=== PATIENT | female | born 1960 | race Caucasian/White ===

== ENCOUNTER → 2016-06-05 | Outpatient (CLI) | payer OTHER ==
[~2016-06-05] MED LIST: ATOR-22 PO; BUSP-8 PO; CEPH500C PO; CLOT1CRE4 TOP; DOXY100T17 PO; GLC/500 PO; KLN5X PO; METH-307 PO; MIRT15TA2 PO; OXYB5TAB PO; PROP120C; RIZA10TA18 PO; TOPI100T20 PO; VENL150C PO
[2016-06-05 18:23] LABS: URINE APPEARANCE CLEAR (CLEAR); URINE BILIRUBIN NEG (NEG); URINE COLOR YELLOW; URINE EPITHELIAL CELL AUTO >30 /lpf (0-5); URINE NITRITE NEG (NEG); URINE SPECIFIC GRAVITY 1.014 (1.000-1.030); UROBILINOGEN NEG (NEG)
[2016-06-05 18:24] LABS: MANUAL MICROSCOPIC REQUIRED? NO; REVIEW REQ? NO
== END | disposition home or self-care (01) ==
LOC: C.LABSPEC 17:45
PROVIDERS: ATTEND Nurse Practitioner Adult Health
DX: R30.0 Dysuria (principal); A49.8 Other bacterial infections of unspecified site

== ENCOUNTER → 2016-06-10 | Outpatient (CLI) | payer OTHER ==
--- NOTE | 2016-06-10 13:06 | DIAGNOSTIC IMAGING REPORT ---
KUB CLINICAL HISTORY: R31.9 [id number] Right flank [id number] COMPARISON STUDY: No previous studies for comparison. FINDINGS: The soft tissues, psoas shadows, renal outlines and intestinal gas pattern appear normal. There is no evidence for bowel obstruction. No abnormal abdominal calcifications are seen. IMPRESSION: Normal study. Electronically signed by: Polo Grey M.D. 06/10/2016 1:04 PM Dictated Date/Time: 06/10/2016 1:04 PM
== END | disposition home or self-care (01) ==
LOC: C.RAD 12:42
PROVIDERS: ATTEND Nurse Practitioner Adult Health
DX: R31.9 Hematuria, unspecified (principal); R10.9 Unspecified abdominal pain

== ENCOUNTER → 2016-08-27 | Outpatient (CLI) | payer OTHER ==
[~2016-08-27] MED LIST changes: +CLOT-40 TOP; -CLOT1CRE4 TOP; +ERGO500011 PO; +GABA-113 PO; +LOSA1TAB PO; +PROM25TA9 PO; +PROP1TAB PO; +SUMA6KIT3 SQ; +TEMA30CA4 PO; +TOPI50TA16 PO; +VENL75CA PO
--- NOTE | 2016-08-28 15:06 | MAMMOGRAPHY REPORT ---
BILATERAL DIGITAL SCREENING MAMMOGRAM TOMOSYNTHESIS WITH CAD: 08/27/2016 CLINICAL HISTORY: Routine screening. Patient has no complaints. TECHNIQUE: Breast tomosynthesis in addition to standard 2D mammography was performed. Current study was also evaluated with a Computer Aided Detection (CAD) system. COMPARISON: Comparison is made to exams dated: 08/27/2015 mammogram, 04/15/2011 mammogram, and 2009 mammogram - [facility]. BREAST COMPOSITION: There are scattered areas of fibroglandular density in both breasts. FINDINGS: No suspicious masses, calcifications, or areas of architectural distortion are noted in e ither breast. There has been no significant interval change compared to prior exams. A linear scar marker denotes a scar on the left upper inner breast. IMPRESSION: ACR BI-RADS CATEGORY 2: BENIGN There is no mammographic evidence of malignancy. A 1 year screening mammogram is recommended. The p atient will receive written notification of the results. Approximately 10% of breast cancers are not detected with mammography. A negative mammographic repor t should not delay biopsy if a clinically suggestive mass is present. Moira Cha M.D. /:08/27/2016 15:29:27 [employer] Supervisor: Candace ADAME(R)(M), [facility] letter sent: Normal 1/2 BI-RADS Code: ACR BI-RADS Category 2: Benign
== END | disposition home or self-care (01) ==
LOC: C.MAMM 14:19
PROVIDERS: ATTEND Nurse Practitioner Family
DX: Z12.31 Encounter for screening mammogram for malignant neoplasm of breast (principal)

== ENCOUNTER → 2016-09-28 | Outpatient (CLI) | payer OTHER ==
--- NOTE | 2016-09-28 10:40 | DIAGNOSTIC IMAGING REPORT ---
MRI CERVICAL WITHOUT CONTRAST CLINICAL HISTORY: M54.12 Cervical radiculopathy Weakness of both arms TECHNIQUE: Sagittal and axial T1, T2 and STIR images were obtained. COMPARISON STUDY: Conventional radiographic study dated 03/06/2016 There are no suspicious areas of marrow replacement. No intrinsic cervical cord lesions are visualized. C2-3: There is no evidence of disc bulge or focal herniation. There is no spinal or foraminal stenosis. C3-4: There is no evidence of disc bulge or focal herniation. There is no spinal or foraminal stenosis. C4-5: There is a minor circumferential disc bulge. There is no spinal stenosis. There is minor bilateral foraminal narrowing C5-6 :There is a circumferential disc bulge. There is slight effacement of the anterior subarachnoid space. There is mild bilateral foraminal narrowing C6-7: There is a minimal circumferential disc bulge. There is no spinal stenosis. There is no significant foraminal narrowing C7-T1: There is no evidence of disc bulge or focal herniation. There is no evidence of spinal or foraminal stenosis. IMPRESSION:Mild multilevel spondylitic changes. Mild spinal stenosis at the C5-6 level. Mild bilateral foraminal narrowing the C4-5 and C5-6 levels. Electronically signed by: Miguel Angel James M.D. 09/28/2016 10:39 AM Dictated Date/Time: 09/28/2016 10:05 AM
== END | disposition home or self-care (01) ==
LOC: C.MRIBC 08:58
PROVIDERS: ATTEND Psychiatry & Neurology Neurology
DX: M50.90 Cervical disc disorder, unspecified, unspecified cervical region (principal); M54.12 Radiculopathy, cervical region; R29.898 Other symptoms and signs involving the musculoskeletal system

== ENCOUNTER → 2016-11-04 | Outpatient (CLI) | payer OTHER ==
[~2016-11-04] MED LIST changes: -CLOT-40 TOP; +CLOT1CRE4 TOP; -ERGO500011 PO; -GABA-113 PO; -LOSA1TAB PO; -PROM25TA9 PO; -PROP1TAB PO; -SUMA6KIT3 SQ; -TEMA30CA4 PO; -TOPI50TA16 PO; -VENL75CA PO
[2016-11-04 12:12] LABS: BASO % 0.4 %; BASO ABS # 0.03 K/uL (0-0.2); COMPLETE YES; HEMATOCRIT 40.5 % (37-47); IG% 0.1 %; LYMPH % 18.5 %; LYMPH ABS # 1.31 K/uL (1.2-3.4); MEAN CELL VOLUME 82.2 fL (80-100); MEAN CORPUSCULAR HEMOGLOBIN 25.4 pg (25-34); MEAN CORPUSCULAR HGB CONC 30.9 g/dl (32-36); MEAN PLATELET VOLUME 11.3 fL (7.4-10.4); MONO % 5.6 %; NEUT % 73.4 %; PLATELET COUNT 269 K/uL (130-400); RED BLOOD COUNT 4.93 M/uL (4.2-5.4); WHITE BLOOD COUNT 7.09 K/uL (4.8-10.8)
[2016-11-04 12:30] LABS: ALT/SGPT 24 U/L (12-78); AST/SGOT 13 U/L (15-37); BLOOD UREA NITROGEN 14 mg/dl (7-18); BUN/CREATININE RATIO 17.3 (10-20); CALCIUM 8.7 mg/dl (8.5-10.1); CARBON DIOXIDE 27 mmol/L (21-32); CHLORIDE 113 mmol/L (98-107); CHOLESTEROL 141 mg/dl (0-200); CREATININE 0.83 mg/dl (0.60-1.20); GLUCOSE 108 mg/dl (70-99); POTASSIUM 4.6 mmol/L (3.5-5.1); SODIUM 145 mmol/L (136-145)
[2016-11-04 12:33] LABS: ALB/GLOB RATIO 1.4 (0.9-2); ALKALINE PHOSPHATASE 115 U/L (45-117); CHOLESTEROL/HDL RATIO 3.4; HDL CHOLESTEROL 41 mg/dl; LDL CHOLESTEROL CALCULATED 74 mg/dl; TRIGLYCERIDES 130 mg/dl (0-150); VERY LOW DENSITY LIPOPROT CALC 26 mg/dl
[2016-11-04 13:00] LABS: ESTIMATED AVERAGE GLUCOSE 111 mg/dl; HA1C FLAG Normal (Normal)
== END | disposition home or self-care (01) ==
LOC: C.LAB 10:22
PROVIDERS: ATTEND Nurse Practitioner Family
DX: E78.5 Hyperlipidemia, unspecified (principal); E88.81 Metabolic syndrome and other insulin resistance; I10 Essential (primary) hypertension

== ENCOUNTER 2016-11-08 09:54 | Emergency (ER) | payer OTHER ==
[~2016-11-08] VITALS: Ht 167.6 cm; Wt 98.2 kg
[~2016-11-08 09:54] MED LIST changes: -CEPH500C PO; -DOXY100T17 PO
[2016-11-08 10:05] VITALS: TEMP 36.8; Ht 167.6 cm; Wt 98.2 kg
[2016-11-08] MEDS ORDERED: SODIUM CHLORIDE 0.9% 1000ML 1,000 ML IV STA (10:28)
[2016-11-08] MEDS ORDERED: ONDANSETRON INJ 2 MG/ML 2 ML VIAL IV STA (10:28)
[2016-11-08] MEDS ORDERED: DOXYCYCLINE HYCLATE 100 MG CAP PO ONE (10:30)
--- NOTE | 2016-11-08 10:39 | EMERGENCY ROOM VISIT NOTE ---
History First contact with patient: 10:15 Chief Complaint: SKIN PROBLEM Stated Complaint: REDNESS,SWELLING,NAUSEA,CHILLS,FLU LIKE SX History of Present Illness The patient is a 56 year old female who presents to the Emergency Room with complaints of rash to the abdomen. The patient noticed a rash to the left lower abdomen. She is not certain how long it has been there or what caused it. She states that it seems to be increasing in size. She states that she has developed fevers, chills, arthralgias and myalgias, nausea. She states her temperature was as high as 100.3F. She states that she took [id number] medication this morning. She rates her discomfort a 5/10. She denies any drainage. She states that she was camping recently and could have been bitten by a tick but did not recall seeing on She denies she reports a mild headache but states it feels consistent with her recurrent migraines. She reports chronic neck pain and states it is not any different than her baseline. She denies any pain in her chest or trouble breathing. She denies any abdominal pain or vomiting. Review of Systems A 10 system review of systems was completed with positives and pertinent negatives listed in the HPI. Past Medical/Surgical History Medical Problems: (1) Chronic low back pain (2) Depression (3) Diabetes (4) Hyperlipidemia (5) Hypertension (6) Migraine (7) Panic attack Social History Smoking Status: Never Smoker Alcohol Use: none Drug Use: none Marital Status: single Occupation Status: unemployed Current/Historical Medications Scheduled Atorvastatin (Lipitor), 20 MG PO QPM Buspirone Hcl (Buspirone Hcl), 10 MG PO HS Cephalexin Monohydrate (Keflex), 500 MG PO QID Doxycycline (Monohydrate) (Doxycycline Monohydrate), 100 MG PO BID Metformin Hcl (Glucophage), 1,000 MG PO QPM Mirtazapine Soltab (Remeron Soltab), 15 MG PO HS Oxybutynin Chloride (Oxybutynin Chloride Er), 10 MG PO QPM Propranolol Hcl (Propranolol Hcl Er), 120 MG HS Rizatriptan Benzoate (Maxalt), 10 MG PO PRN Topiramate (Topamax), 100 MG PO BID Venlafaxine Hcl (Effexor Xr), 150 MG PO QNOON Scheduled PRN Clonazepam (Clonazepam), 0.5 MG PO HS PRN for anxiety Physical Exam Vital Signs Date Time Temp Pulse Resp B/P (MAP) Pulse Ox O2 Delivery O2 Flow Rate FiO2 11/08/16 12:01 67 18 108/71 95 11/08/16 11:08 66 16 109/65 96 Room Air 11/08/16 10:05 36.8 78 18 121/87 95 Room Air Physical Exam VITALS: Vitals are noted on the nurse's note and reviewed by myself. Vital signs stable. GENERAL: This is a 56 year old female, in no acute distress, nondiaphoretic, well-developed well-nourished. SKIN: There is an annular area of erythema to the left lower abdomen. There is a central area of necrosis. There is no fluctuance or drainage. There is no tenting of the skin. Capillary reflex less than 2 seconds. HEAD: Normocephalic atraumatic. EARS: The external ears are normal in appearance. EYES: Pupils equal round and reactive to light and accommodation. Conjunctivae without injection, sclerae without icterus. Extraocular movements intact. NOSE: Patent, turbinates without inflammation or discharge. MOUTH: Mucous membranes moist. Tongue does not deviate. NECK: Supple without nuchal rigidity. HEART: Regular rate and rhythm without murmurs gallops or rubs. LUNGS: Clear to auscultation bilaterally without wheezes, rales or rhonchi. No retractions or accessory muscle use. ABDOMEN: Positive bowel sounds x 4.Soft, nontender, without masses or organomegaly. MUSCULOSKELETAL: No muscle atrophy, erythema, or edema noted. Full range of motion in all extremities. Strength 5/5 throughout. NEURO: Patient was alert and oriented to person place and time. No focal neurological deficits. Medical Decision & Procedures Laboratory Results 11/08/16 10:35 Red Blood Count 4.78, Mean Corpuscular Volume 81.2, Mean Corpuscular Hemoglobin 25.7, Mean Corpuscular Hemoglobin Concent 31.7, Mean Platelet Volume 11.2, Neutrophils (%) (Auto) 76.9, Lymphocytes (%) (Auto) 13.2, Monocytes (%) (Auto) 9.2, Eosinophils (%) (Auto) 0.5, Basophils (%) (Auto) 0.2, Neutrophils # (Auto) 3.10, Lymphocytes # (Auto) 0.53, Monocytes # (Auto) 0.37, Eosinophils # (Auto) 0.02, Basophils # (Auto) 0.01 11/08/16 10:35 Test 11/08/16 10:35 White Blood Count 4.03 K/uL (4.8-10.8) Red Blood Count 4.78 M/uL (4.2-5.4) Hemoglobin 12.3 g/dL (12.0-16.0) Hematocrit 38.8 % (37-47) Mean Corpuscular Volume 81.2 fL (80-100) Mean Corpuscular Hemoglobin 25.7 pg (25-34) Mean Corpuscular Hemoglobin Concent 31.7 g/dl (32-36) Platelet Count 183 K/uL (130-400) Mean Platelet Volume 11.2 fL (7.4-10.4) Neutrophils (%) (Auto) 76.9 % Lymphocytes (%) (Auto) 13.2 % Monocytes (%) (Auto) 9.2 % Eosinophils (%) (Auto) 0.5 % Basophils (%) (Auto) 0.2 % Neutrophils # (Auto) 3.10 K/uL (1.4-6.5) Lymphocytes # (Auto) 0.53 K/uL (1.2-3.4) Monocytes # (Auto) 0.37 K/uL (0.11-0.59) Eosinophils # (Auto) 0.02 K/uL (0-0.5) Basophils # (Auto) 0.01 K/uL (0-0.2) RDW Standard Deviation 43.8 fL (36.4-46.3) RDW Coefficient of Variation 14.8 % (11.5-14.5) Immature Granulocyte % (Auto) 0.0 % Immature Granulocyte # (Auto) 0.00 K/uL (0.00-0.02) Anion Gap 7.0 mmol/L (3-11) Est Creatinine Clear Calc Drug Dose 87.3 ml/min Estimated GFR () 88.1 Estimated GFR (Non- 76.1 BUN/Creatinine Ratio 13.9 (10-20) Calcium Level 8.4 mg/dl (8.5-10.1) Total Bilirubin 0.3 mg/dl (0.2-1) Aspartate Amino Transf (AST/SGOT) 17 U/L (15-37) Alanine Aminotransferase (ALT/SGPT) 25 U/L (12-78) Alkaline Phosphatase 117 U/L (45-117) Total Protein 6.9 gm/dl (6.4-8.2) Albumin 3.8 gm/dl (3.4-5.0) Globulin 3.1 gm/dl (2.5-4.0) Albumin/Globulin Ratio 1.2 (0.9-2) Lyme Disease IgG Antibody NEG (NEG) Lyme Disease IgM Antibody NEG (NEG) Medications Administered Medications (Trade) Dose Ordered Sig/Mohit Route Start Time Stop Time Status Last Admin Dose Admin Sodium Chloride 1,000 ml @ 999 mls/hr Q1H1M STAT IV 11/08/16 10:28 11/08/16 11:28 DC 11/08/16 10:35 999 MLS/HR Ondansetron HCl (Zofran Inj) 4 mg NOW STAT IV 11/08/16 10:28 11/08/16 10:29 DC 11/08/16 10:35 4 MG Doxycycline Hyclate (Vibramycin Cap) 100 mg ONE ONCE PO 11/08/16 10:30 11/08/16 10:31 DC 11/08/16 10:35 100 MG Ceftriaxone Sodium (Rocephin Inj) 1 gm NOW STAT IV 11/08/16 10:57 11/08/16 10:58 DC 11/08/16 11:07 1 GM ED Course The patient was seen and examined. Previous visits were reviewed. The patient does not have a fever or leukocytosis. She does not have any significant electrolyte abnormality. Lyme titer is negative. The patient was hydrated with normal saline She was given 4 mg IV Zofran She was given 100 mg oral doxycycline She was given 1 g IV Rocephin The patient appears to have a cellulitis to the left abdominal wall. Erythema migrans is considered in the differential. Lyme titer is negative. This may represent a MRSA skin infection. The patient will be treated with doxycycline which would cover for potential Lyme disease and MRSA. She will also be placed on Keflex. She should return in 24-48 hours if symptoms are worsening or not improving. Otherwise, she should recheck with her family doctor by the end of the week. Medical Decision The differential diagnosis includes cellulitis, Lyme disease, among others Medication Reconcilliation Current Medication List: was personally reviewed by me Blood Pressure Screening Patient's blood pressure: Normal blood pressure Blood pressure disposition: Did not require urgent referral Impression Primary Impression: Cellulitis, abdominal wall Departure Information Dispostion Home / Self-Care Condition GOOD Prescriptions Cephalexin Monohydrate (Keflex) 500 Mg Cap 500 MG PO QID for 10 Days, #40 CAP Prov: Lacey Stewart PA-C 11/08/16 Doxycycline (Monohydrate) (DOXYCYCLINE MONOHYDRATE) 100 Mg Tab 100 MG PO BID for 10 Days, #20 CAP Prov: Lacey Stewart PA-C 11/08/16 Referrals Brent Dye III, CRNP (PCP) Patient Instructions Cellulitis - [facility], [facility] Additional Instructions Take the antibiotics as prescribed, until finished If there is no significant improvement or worsening in the next 24-48 hours, return to the emergency department Return if there is any worsening swelling, softening could indicate an abscess forming that would need to be opened and drained Otherwise, recheck with your family doctor before the end of the week
[2016-11-08 10:49] LABS: BASO % 0.2 %; BASO ABS # 0.01 K/uL (0-0.2); COMPLETE YES; EOS % 0.5 %; HEMATOCRIT 38.8 % (37-47); LYMPH % 13.2 %; LYMPH ABS # 0.53 K/uL (1.2-3.4); MEAN CELL VOLUME 81.2 fL (80-100); MEAN CORPUSCULAR HEMOGLOBIN 25.7 pg (25-34); MEAN CORPUSCULAR HGB CONC 31.7 g/dl (32-36); MEAN PLATELET VOLUME 11.2 fL (7.4-10.4); MONO % 9.2 %; NEUT % 76.9 %; PLATELET COUNT 183 K/uL (130-400); RED BLOOD COUNT 4.78 M/uL (4.2-5.4); WHITE BLOOD COUNT 4.03 K/uL (4.8-10.8)
[2016-11-08] MEDS ORDERED: CEFTRIAXONE SOD INJ 1 GM ADDVIAL IV STA (10:57)
[2016-11-08 11:06] LABS: BUN/CREATININE RATIO 13.9 (10-20); CALCIUM 8.4 mg/dl (8.5-10.1); CREATININE 0.86 mg/dl (0.60-1.20); POTASSIUM 4.1 mmol/L (3.5-5.1)
[2016-11-08 11:08] LABS: ALB/GLOB RATIO 1.2 (0.9-2)
[2016-11-08 11:38] LABS: LYME DISEASE AB IGG NEG (NEG)
[2016-11-08 11:39] LABS: LYME DISEASE AB IGM NEG (NEG)
[2016-11-08] MEDS ORDERED: DOXY100T17 PO (11:48)
[2016-11-08] MEDS ORDERED: CEPH500C PO (11:48)
[2016-11-08 12:01] VITALS: BP 108/71; PULSE 67; O2SAT 95
== END 2016-11-08 12:03 | disposition home or self-care (01) ==
LOC: C.EDB 09:56 → C.EDC 12:03
DX: L03.311 Cellulitis of abdominal wall (principal); G89.29 Other chronic pain; M54.5 Low back pain; F32.9 Major depressive disorder, single episode, unspecified; E11.9 Type 2 diabetes mellitus without complications; E78.5 Hyperlipidemia, unspecified; I10 Essential (primary) hypertension; Z79.84 Long term (current) use of oral hypoglycemic drugs

== ENCOUNTER 2016-12-18 12:25 | Emergency (ER) | payer OTHER ==
[~2016-12-18] VITALS: Ht 167.6 cm; Wt 101.5 kg
[~2016-12-18 12:25] MED LIST changes: -CLOT1CRE4 TOP; +DOXY100T17 PO; -METH-307 PO
[2016-12-18 12:29] VITALS: TEMP 36.6; Ht 167.6 cm; Wt 101.5 kg
[2016-12-18] MEDS ORDERED: DiphenhydrAMINE HCL 50 MG/ML VIAL IV STA (13:25)
[2016-12-18] MEDS ORDERED: METOCLOPRAMIDE HCL INJ 5 MG/ML 2 ML VIAL IV STA (13:25)
[2016-12-18] MEDS ORDERED: SODIUM CHLORIDE 0.9% 500ML 500 ML IV STA (13:25)
[2016-12-18] MEDS ORDERED: MAGNESIUM SULFATE 1GM / D5W 1 GM BAG IV STA (13:25)
[2016-12-18 13:47] LABS: BASO % 0.6 %; BASO ABS # 0.03 K/uL (0-0.2); COMPLETE YES; EOS % 3.2 %; HEMATOCRIT 37.1 % (37-47); IG% 0.2 %; LYMPH % 24.7 %; LYMPH ABS # 1.33 K/uL (1.2-3.4); MEAN CELL VOLUME 80.8 fL (80-100); MEAN CORPUSCULAR HEMOGLOBIN 25.7 pg (25-34); MEAN CORPUSCULAR HGB CONC 31.8 g/dl (32-36); MEAN PLATELET VOLUME 10.9 fL (7.4-10.4); MONO % 8.7 %; NEUT % 62.6 %; PLATELET COUNT 173 K/uL (130-400); RED BLOOD COUNT 4.59 M/uL (4.2-5.4); WHITE BLOOD COUNT 5.39 K/uL (4.8-10.8)
[2016-12-18 14:08] LABS: BUN/CREATININE RATIO 14.9 (10-20); CALCIUM 8.9 mg/dl (8.5-10.1); CREATININE 0.83 mg/dl (0.60-1.20); POTASSIUM 3.9 mmol/L (3.5-5.1)
--- NOTE | 2016-12-18 15:30 | EMERGENCY ROOM VISIT NOTE ---
History Report prepared by Rolando: Guillermo Garcia Under the Supervision of: Dr. Danielito Krishnan M.D. First contact with patient: 12:49 Chief Complaint: HEADACHE Stated Complaint: MIGRAINE, CHEST DISCOMFORT RADIATING R SIDE History of Present Illness The patient is a 56 year old white female who presents to the ED with a cc of a constant "achy" headache beginning yesterday. She has a history of migraines and states that her current pain feels like a typical migraine. She was watching TV when her pain began. Notes that she has frequent headaches. Positive nausea, vomiting, and photophobia. Negative numbness, tinging, weakness , or shortness of breath. Vomited twice last night. No recent antibiotic use. No recent travel. Has a wisdom tooth that is scheduled to be removed. No recent medication changes. Not taking blood thinners. No recent trauma. Source of History: patient Onset: Yesterday Position: head Quality: other ("achy") Timing: constant Associated Symptoms: + nausea, + vomiting, No SOB, No weakness, No numbness Note: Positive: photophobia. Negative: tingling. Review of Systems See HPI for pertinent positives and negatives. A total of ten systems were reviewed and were otherwise negative. Past Medical & Surgical Medical Problems: (1) Chronic low back pain (2) Depression (3) Diabetes (4) Hyperlipidemia (5) Hypertension (6) Migraine (7) Panic attack Family History No pertinent family history stated. Social History Smoking Status: Former Smoker Alcohol Use: none Drug Use: none Marital Status: single Occupation Status: unemployed Current/Historical Medications Scheduled Atorvastatin (Lipitor), 20 MG PO QPM Buspirone Hcl (Buspirone Hcl), 10 MG PO HS Metformin Hcl (Glucophage), 1,000 MG PO QPM Mirtazapine Soltab (Remeron Soltab), 15 MG PO HS Oxybutynin Chloride (Oxybutynin Chloride Er), 10 MG PO QPM Propranolol Hcl (Propranolol Hcl Er), 120 MG HS Rizatriptan Benzoate (Maxalt), 10 MG PO PRN Topiramate (Topamax), 100 MG PO BID Venlafaxine Hcl (Effexor Xr), 150 MG PO QNOON Scheduled PRN Clonazepam (Clonazepam), 0.5 MG PO HS PRN for anxiety Allergies Coded Allergies: Latex1 -Allergic Contact Dermititis (Verified Allergy, Intermediate, rash , 11/08/16) Sulfamethoxazole w/Trimethoprim (Verified Allergy, Intermediate, itching, chest tightness, 11/08/16) Adhesives (Verified Allergy, Unknown, ITCHY SKIN, 11/08/16) Physical Exam Vital Signs Date Time Temp Pulse Resp B/P (MAP) Pulse Ox O2 Delivery O2 Flow Rate FiO2 12/18/16 16:13 84 25 91/65 95 12/18/16 15:44 83 19 121/84 96 Room Air 12/18/16 15:00 83 20 103/79 92 Room Air 12/18/16 14:35 90 20 109/73 94 Room Air 12/18/16 13:48 88 18 115/83 92 Room Air 12/18/16 13:30 87 18 176/120 92 Room Air 12/18/16 12:55 92 12/18/16 12:40 94 24 126/88 95 Room Air 12/18/16 12:29 36.6 99 20 136/87 99 Room Air Physical Exam GENERAL: Awake, alert, well-appearing, NAD HENT: Normocephalic, atraumatic. Edentulous. Impacted right lower mandibular wisdom tooth without swelling or pain. EYES: Normal conjunctiva. Sclera non-icteric. NECK: Supple. No nuchal rigidity. FROM. RESPIRATORY: CTAB, no rhonchi, wheezing, crackles CARDIAC: RRR, no MRG ABDOMEN: Soft, NTND, BS+ MSK: No chest wall TTP, no LE edema NEURO: GCS 15, CN 2-12 intact, moves all 4s on command. No pronator drift. Good finger to nose. No dysmetria. No sensory deficit. 5/5 b/l UE/LE strength. SKIN: No rash or jaundice noted. Medical Decision & Procedures Laboratory Results 12/18/16 13:30 Red Blood Count 4.59, Mean Corpuscular Volume 80.8, Mean Corpuscular Hemoglobin 25.7, Mean Corpuscular Hemoglobin Concent 31.8, Mean Platelet Volume 10.9, Neutrophils (%) (Auto) 62.6, Lymphocytes (%) (Auto) 24.7, Monocytes (%) (Auto) 8.7, Eosinophils (%) (Auto) 3.2, Basophils (%) (Auto) 0.6, Neutrophils # (Auto) 3.38, Lymphocytes # (Auto) 1.33, Monocytes # (Auto) 0.47, Eosinophils # (Auto) 0.17, Basophils # (Auto) 0.03 12/18/16 13:30 Test 12/18/16 13:30 White Blood Count 5.39 K/uL (4.8-10.8) Red Blood Count 4.59 M/uL (4.2-5.4) Hemoglobin 11.8 g/dL (12.0-16.0) Hematocrit 37.1 % (37-47) Mean Corpuscular Volume 80.8 fL (80-100) Mean Corpuscular Hemoglobin 25.7 pg (25-34) Mean Corpuscular Hemoglobin Concent 31.8 g/dl (32-36) Platelet Count 173 K/uL (130-400) Mean Platelet Volume 10.9 fL (7.4-10.4) Neutrophils (%) (Auto) 62.6 % Lymphocytes (%) (Auto) 24.7 % Monocytes (%) (Auto) 8.7 % Eosinophils (%) (Auto) 3.2 % Basophils (%) (Auto) 0.6 % Neutrophils # (Auto) 3.38 K/uL (1.4-6.5) Lymphocytes # (Auto) 1.33 K/uL (1.2-3.4) Monocytes # (Auto) 0.47 K/uL (0.11-0.59) Eosinophils # (Auto) 0.17 K/uL (0-0.5) Basophils # (Auto) 0.03 K/uL (0-0.2) RDW Standard Deviation 45.2 fL (36.4-46.3) RDW Coefficient of Variation 15.5 % (11.5-14.5) Immature Granulocyte % (Auto) 0.2 % Immature Granulocyte # (Auto) 0.01 K/uL (0.00-0.02) Anion Gap 5.0 mmol/L (3-11) Est Creatinine Clear Calc Drug Dose 92.1 ml/min Estimated GFR () 92.0 Estimated GFR (Non- 79.4 BUN/Creatinine Ratio 14.9 (10-20) Calcium Level 8.9 mg/dl (8.5-10.1) Laboratory results reviewed by me Medications Administered Medications (Trade) Dose Ordered Sig/Mohit Route Start Time Stop Time Status Last Admin Dose Admin Metoclopramide HCl (Reglan Inj) 10 mg NOW STAT IV 12/18/16 13:25 12/18/16 13:26 DC 12/18/16 13:43 10 MG Diphenhydramine HCl (Benadryl Inj) 12.5 mg NOW STAT IV 12/18/16 13:25 12/18/16 13:26 DC 12/18/16 13:43 12.5 MG Magnesium Sulfate (Magnesium Sulfate) 1 gm NOW STAT IV 12/18/16 13:25 12/18/16 13:26 DC 12/18/16 13:43 1 GM Sodium Chloride 500 ml @ 500 mls/hr Q1H STAT IV 12/18/16 13:25 12/18/16 14:24 DC 12/18/16 13:42 500 MLS/HR ECG Indication: vomiting Rate (beats per minute): 86 Rhythm: normal sinus Findings: other (Short CT interval. Normal QRS. Questionable Q wave in lead 3. No other STS changes. No TWI. ) ED Course 1305: The patient was evaluated in room B3B. A complete history and physical exam was performed. 1325: Ordered Sodium Chloride 500 ml @ 500 mls/hr IV, Magnesium Sulfate 1 gm IV , Benadryl Inj 12.5 mg IV, Reglan Inj 10 mg IV. 1525: I reevaluated the patient. Discussed results and discharge instructions: she verbalized understanding and agreement. The patient is ready for discharge. Medical Decision The patient is a 56 year old white female who presents to the ED with a cc of constant "achy" headache beginning yesterday. Differential diagnosis: Etiologies such as migraine headache, meningitis, sinusitis, CO exposure, ICH, SAH, infection, tumor, headache, sinus thrombosis, arterial dissection, as well as others were entertained. Patient did have blood work was completed that was fairly unremarkable. Patient was given a headache cocktail. Patient's symptoms completely resolved patient was able tolerate by mouth. Patient had no neurologic deficits and had full range of motion of the neck without any signs of meningismus. Patient was feeling improved. Patient was told to maintain hydration and avoid caffeine or alcohol related beverages. Patient was told to follow-up for her dental pain. This also may be a possible source of her pain however there are no signs of acute infection patient does not require any antibiotics at this time. Patient was given strict follow-up, discharge, and return precautions. Patient agreeable with plan of care and patient was safely discharged home. Medication Reconcilliation Current Medication List: was personally reviewed by me Blood Pressure Screening Patient's blood pressure: Elevated blood pressure Blood pressure disposition: Referred to PCP Impression Primary Impression: Migraine Scribe Attestation The scribe's documentation has been prepared under my direction and personally reviewed by me in its entirety. I confirm that the note above accurately reflects all work, treatment, procedures, and medical decision making performed by me. Departure Information Dispostion Home / Self-Care Referrals Brent Dye III, CRNP (PCP) Patient Instructions ED Headache Migraine, My [facility] Additional Instructions Please return to the emergency department if you have worsening or recurrent symptoms not amenable to at-home treatment. Please call for a follow-up appointment with her primary care physician. Please take your medications as prescribed. If you have other concerns and/or complaints please feel free to also call your primary care physician's office or return the ED for further evaluation, management, and treatment.
[2016-12-18 16:13] VITALS: BP 91/65; PULSE 84; O2SAT 95
== END 2016-12-18 16:10 | disposition home or self-care (01) ==
LOC: C.EDB 12:26
DX: G43.909 Migraine, unspecified, not intractable, without status migrainosus (principal); M54.5 Low back pain; G89.29 Other chronic pain; F32.9 Major depressive disorder, single episode, unspecified; E11.9 Type 2 diabetes mellitus without complications; E78.5 Hyperlipidemia, unspecified; I10 Essential (primary) hypertension; Z87.891 Personal history of nicotine dependence; Z79.899 Other long term (current) drug therapy

== ENCOUNTER → 2017-01-13 | Outpatient (CLI) | payer OTHER ==
[~2017-01-13] MED LIST changes: -DOXY100T17 PO
[2017-01-13 15:41] LABS: BASO % 0.3 %; BASO ABS # 0.02 K/uL (0-0.2); COMPLETE YES; EOS % 4.5 %; HEMATOCRIT 37.2 % (37-47); IG% 0.2 %; LYMPH % 16.6 %; LYMPH ABS # 1.06 K/uL (1.2-3.4); MEAN CELL VOLUME 82.3 fL (80-100); MEAN CORPUSCULAR HEMOGLOBIN 25.2 pg (25-34); MEAN CORPUSCULAR HGB CONC 30.6 g/dl (32-36); MEAN PLATELET VOLUME 10.5 fL (7.4-10.4); MONO % 10.3 %; NEUT % 68.1 %; PLATELET COUNT 218 K/uL (130-400); RED BLOOD COUNT 4.52 M/uL (4.2-5.4); WHITE BLOOD COUNT 6.38 K/uL (4.8-10.8)
[2017-01-13 16:08] LABS: ALT/SGPT 18 U/L (12-78); BLOOD UREA NITROGEN 13 mg/dl (7-18); BUN/CREATININE RATIO 14.8 (10-20); CALCIUM 8.8 mg/dl (8.5-10.1); CARBON DIOXIDE 25 mmol/L (21-32); CHLORIDE 108 mmol/L (98-107); CREATININE 0.86 mg/dl (0.60-1.20); GLUCOSE 101 mg/dl (70-99); MAGNESIUM 2.1 mg/dl (1.8-2.4); POTASSIUM 4.1 mmol/L (3.5-5.1); SODIUM 142 mmol/L (136-145)
[2017-01-13 16:19] LABS: ALB/GLOB RATIO 1.2 (0.9-2); ALKALINE PHOSPHATASE 118 U/L (45-117); AST/SGOT 10 U/L (15-37); FERRITIN 7.1 ng/ml (8.0-388.0)
--- NOTE | 2017-01-20 10:24 | CODING QUERY MEDICAL NECESSITY ---
SUPPORTING DIAGNOSIS NEEDED Hardik TORIBIO, A supporting diagnosis is required for the test/procedure performed on this patient in order for us to be reimbursed by the patient's insurance. Please provide a supporting diagnosis for the following test/procedure listed below next to the test name along with your signature. *If there is no additional diagnosis for this patient that would support the following test/procedure please document that below next to the test/procedure. Test(s)/Procedure(s) that require a supporting diagnosis: * [id number] VITAMIN D ASSAY DIAGNOSIS: DATE OF SERVICE: 01/13/17 Provider Signature: Date: Thank you Titi Ryo [facility] Information Management Once completed, please kindly fax back to [phone] For questions please call [phone]
== END ==
LOC: C.LAB 14:52
PROVIDERS: ATTEND Nurse Practitioner Family
DX: R25.2 Cramp and spasm (principal)

== ENCOUNTER → 2017-05-10 | Outpatient (CLI) | payer OTHER ==
[~2017-05-10] MED LIST changes: +ERGO500011 PO; +GABA-113 PO; +LOSA1TAB PO; +METH-307 PO; +PROM25TA9 PO; -PROP120C; +PROP1TAB PO; +SUMA6KIT3 SQ; +TEMA30CA4 PO; -TOPI100T20 PO; +TOPI50TA16 PO; +VENL75CA PO
[2017-05-10 09:53] LABS: BASO % 0.2 %; BASO ABS # 0.01 K/uL (0-0.2); EOS % 2.8 %; EOS ABS # 0.16 K/uL (0-0.5); HEMATOCRIT 38.6 % (37-47); HEMOGLOBIN 12.2 g/dL (12.0-16.0); LYMPH % 19.7 %; LYMPH ABS # 1.12 K/uL (1.2-3.4); MEAN CELL VOLUME 82.8 fL (80-100); MEAN CORPUSCULAR HEMOGLOBIN 26.2 pg (25-34); MEAN CORPUSCULAR HGB CONC 31.6 g/dl (32-36); MEAN PLATELET VOLUME 11.6 fL (7.4-10.4); MONO % 5.6 %; MONO ABS # 0.32 K/uL (0.11-0.59); NEUT % 71.7 %; NEUT ABS # 4.07 K/uL (1.4-6.5); PLATELET COUNT 183 K/uL (130-400); RED CELL DISTRIBUTION WIDTH CV 14.8 % (11.5-14.5); RED CELL DISTRIBUTION WIDTH SD 44.6 fL (36.4-46.3); WHITE BLOOD COUNT 5.68 K/uL (4.8-10.8)
[2017-05-10 10:11] LABS: HEMOGLOBIN A1C 5.7 % (4.5-5.6)
[2017-05-10 10:30] LABS: ALBUMIN 3.9 gm/dl (3.4-5.0); ALT/SGPT 19 U/L (12-78); BLOOD UREA NITROGEN 12 mg/dl (7-18); CALCIUM 8.7 mg/dl (8.5-10.1); CARBON DIOXIDE 24 mmol/L (21-32); CHOLESTEROL 152 mg/dl (0-200); GLUCOSE 102 mg/dl (70-99); POTASSIUM 4.2 mmol/L (3.5-5.1); SODIUM 141 mmol/L (136-145)
[2017-05-10 10:33] LABS: ALKALINE PHOSPHATASE 105 U/L (45-117); AST/SGOT 14 U/L (15-37); LDL CHOLESTEROL CALCULATED 75 mg/dl; TOTAL PROTEIN 6.6 gm/dl (6.4-8.2)
== END | disposition home or self-care (01) ==
LOC: C.LAB 09:15
PROVIDERS: ATTEND Nurse Practitioner Family
DX: F41.8 Other specified anxiety disorders (principal); G47.00 Insomnia, unspecified; E78.5 Hyperlipidemia, unspecified; E88.81 Metabolic syndrome and other insulin resistance; I10 Essential (primary) hypertension

== ENCOUNTER → 2017-05-31 | Outpatient (CLI) | payer OTHER | END | disposition home or self-care (01) | LOC: C.LAB 13:05 | PROVIDERS: ATTEND Nurse Practitioner Family | DX: E55.9 Vitamin D deficiency, unspecified (principal); D50.9 Iron deficiency anemia, unspecified ==

== ENCOUNTER → 2017-06-15 | Outpatient (CLI) | payer OTHER ==
--- NOTE | 2017-06-15 10:04 | DIAGNOSTIC IMAGING REPORT ---
CHEST 2 VIEWS ROUTINE HISTORY: 57 years-old Female J44.1 COPD [id number] acute shortness of breath COMPARISON: Chest radiographs 11/02/2014 TECHNIQUE: PA and lateral views of the chest FINDINGS: Cardiac silhouette is enlarged, unchanged. Prior median sternotomy. Surgical clips project over the upper mediastinum. No pneumothorax or overt pulmonary edema. Pulmonary vascular congestion is again noted. Left hemidiaphragmatic elevation with subsegmental left basilar opacities, unchanged. No large pleural effusion. IMPRESSION: 1. Cardiomegaly without overt pulmonary edema. 2. Chronic left hemidiaphragmatic elevation with subsegmental left basilar opacities suggesting atelectasis. The above report was generated using voice recognition software. It may contain grammatical, syntax or spelling errors. Electronically signed by: Blue Rod M.D. 06/15/2017 10:03 AM Dictated Date/Time: 06/15/2017 10:01 AM
== END | disposition home or self-care (01) ==
LOC: C.RAD 09:43
PROVIDERS: ATTEND Nurse Practitioner Family
DX: J44.1 Chronic obstructive pulmonary disease with (acute) exacerbation (principal); I51.7 Cardiomegaly; R91.8 Other nonspecific abnormal finding of lung field

== ENCOUNTER → 2017-07-02 | Outpatient (CLI) | payer OTHER ==
--- NOTE | 2017-07-02 14:45 | DIAGNOSTIC IMAGING REPORT ---
TWO VIEW CHEST CLINICAL HISTORY: COPD exacerbation. FINDINGS: PA and lateral chest radiographs are compared to study dated 06/15/2017. The patient is status post midline sternotomy. The cardiac silhouette is obscured. The pulmonary vasculature is noncongested. Chronic interstitial thickening is similar to previous. There is chronic elevation of the left hemidiaphragm with left basilar atelectasis. The lungs are otherwise clear. No pleural effusion is seen. There is no pneumothorax. The skeletal structures are osteopenic. Degenerative change and hyperkyphosis are noted in the thoracic spine IMPRESSION: Chronic changes as above with no active disease in the chest. Electronically signed by: Ishan Holt M.D. 07/02/2017 2:43 PM Dictated Date/Time: 07/02/2017 2:42 PM
== END | disposition home or self-care (01) ==
LOC: C.RAD 14:19
PROVIDERS: ATTEND Nurse Practitioner Family
DX: J44.1 Chronic obstructive pulmonary disease with (acute) exacerbation (principal)

== ENCOUNTER → 2017-08-13 | Outpatient (CLI) | payer OTHER ==
[~2017-08-13] VITALS: Ht 167.6 cm; Wt 100.7 kg
[2017-08-13 14:19] VITALS: BP 100/65; PULSE 92; Ht 167.6 cm; Wt 100.7 kg
== END | disposition home or self-care (01) ==
LOC: C.NEUR 13:37
PROVIDERS: ATTEND Internal Medicine Pulmonary Disease
DX: G47.00 Insomnia, unspecified (principal); R06.83 Snoring; F41.8 Other specified anxiety disorders; G25.81 Restless legs syndrome

== ENCOUNTER → 2017-09-01 | Outpatient (CLI) | payer OTHER ==
[~2017-09-01] MED LIST changes: +FERR1TAB13 PO
== END | disposition home or self-care (01) ==
LOC: C.LAB 10:28
PROVIDERS: ATTEND Nurse Practitioner Family
DX: E55.9 Vitamin D deficiency, unspecified (principal)

== ENCOUNTER → 2017-11-10 | Outpatient (CLI) | payer OTHER ==
[~2017-11-10] MED LIST changes: -VENL150C PO; +VENL150C71 PO; -VENL75CA PO; +VENL75CA94 PO
== END | disposition home or self-care (01) ==
LOC: C.LAB 12:23
PROVIDERS: ATTEND Nurse Practitioner Family
DX: E55.9 Vitamin D deficiency, unspecified (principal)

== ENCOUNTER 2020-04-16 18:54 | Observation (INO) ==
[2020-04-16] MEDS ORDERED: ONDANSETRON INJ 2 MG/ML 2 ML VIAL IV STA (19:10)
[2020-04-16] MEDS ORDERED: ONDANSETRON INJ 2 MG/ML 2 ML VIAL ONE (19:11)
[2020-04-16] MEDS ORDERED: SODIUM CHLORIDE 0.9% 1000ML 1,000 ML IV ONE ×2 (19:12→22:01)
--- NOTE | 2020-04-16 19:15 | Emergency Department Note ---
History of Present Illness General Chief complaint: Fever Stated complaint: SICK SINCE 04/13, FEVER Time Seen by Provider: 04/16/20 19:01 History of Present Illness Provider complaint: Fever Onset (ago): day(s) 3 Maximum Pain Intensity: 7 Associated symptoms: + fever/chills, + headaches, + malaise and + nausea/vomiting 60-year-old female presents emergency department for fever, nausea, vomiting, diarrhea, fatigue, headache, and myalgias. No chest pain or difficulty breathing. No melena or hematochezia. No hematuria or dysuria. No hematemesis, coffee-ground emesis, or bilious vomiting. Home Medications Medication Instructions Recorded Confirmed Type venlafaxine 75 mg PO QAM 07/20/18 04/16/20 History multivitamin 1 tab PO DAILY 10/26/18 04/16/20 History ferrous sulfate 325 mg (65 mg 325 mg PO BID #60 tab 12/01/18 04/16/20 Rx iron) tablet,delayed release venlafaxine 150 mg 150 mg PO QAM #30 cap 01/24/19 04/16/20 History capsule,extended release 24 hr atorvastatin 40 mg tablet 40 mg PO DAILY #30 tab 06/20/19 04/16/20 Rx losartan 25 mg tablet 25 mg PO DAILY #30 tab 10/13/19 04/16/20 Rx ergocalciferol (vitamin D2) 1,250 50,000 units PO WK #12 cap 11/14/19 04/16/20 Rx mcg (50,000 unit) capsule oxybutynin chloride 10 mg 10 mg PO DAILY #30 tab 11/28/19 04/16/20 Rx tablet,extended release 24 hr ibuprofen 600 mg tablet 600 mg PO TID PRN #90 tab 12/27/19 04/16/20 Rx clonazepam 0.5 mg tablet 0.5 mg PO .COMPLEX PRN tab 01/04/20 04/16/20 History galcanezumab-gnlm 120 mg/mL 120 mg SQ MONTHLY 30 Days #1 ml 01/04/20 04/16/20 Rx subcutaneous pen injector promethazine 25 mg tablet 25 mg PO BID PRN #60 tab 01/04/20 04/16/20 Rx propranolol 160 mg capsule,24 160 mg PO HS 30 Days #30 cap 01/04/20 04/16/20 Rx hr,extended release rizatriptan 10 mg tablet 10 mg PO .COMPLEX PRN 90 Days #27 01/04/20 04/16/20 Rx tab tizanidine 4 mg tablet 4 mg PO QID PRN #90 tab 01/04/20 04/16/20 Rx sumatriptan succinate 6 mg/0.5 mL 6 mg SUBCUT .COMPLEX PRN #1 ml 03/18/20 04/16/20 Rx subcutaneous pen injector gabapentin 800 mg tablet 800 mg PO TID #90 tab 04/10/20 04/16/20 Rx topiramate 100 mg capsule 100 mg PO DAILY 90 Days #90 ea 04/10/20 04/16/20 Rx sprinkle,extended release 24 hr buspirone 30 mg PO HS 04/16/20 04/16/20 History chlorpromazine 10 mg PO HS 04/16/20 04/16/20 History trazodone 50 mg PO HS 04/16/20 04/16/20 History Allergies Allergy/AdvReac Type Severity Reaction Status Date / Time Bactrim Allergy Intermediate itching, Verified 06/01/17 10:40 chest tightness latex Allergy Intermediate rash Verified 04/17/20 00:00 sulfamethoxazole Allergy Intermediate itching, Verified 04/17/20 00:00 chest tightness trimethoprim Allergy Intermediate itching, Verified 04/17/20 00:00 chest tightness adhesive Allergy Unknown ITCHY SKIN Verified 04/17/20 00:00 doxycycline Allergy nausea and Verified 04/17/20 00:00 vomiting clindamycin AdvReac Severe Diarrhea Verified 04/17/20 00:00 Past Med/Surg History Medical History Depression (09/09/12) Diabetes History of uterine fibroid Hyperlipidemia Hypertension Migraine (09/09/12) Panic attack (09/09/12) PMB (postmenopausal bleeding) Surgical History History 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 History of laparoscopic cholecystectomy S/P surgical removal of pilonidal cyst Family History Sister Rheumatoid arthritis Steatorrhea Mother Hypertension Father Parkinson disease Denies family history of Ovarian cancer Prostate cancer Myocardial infarction Breast cancer Colorectal cancer Social History Smoking Status: Former smoker Age Started Using Tobacco: 21; Age Quit Using Tobacco: 58; packs per day: 1; Years Smoked: 37; Cigarettes Per Day: 5-8; Number of Years Since Quit: 1; Second Hand Exposure: Yes; Hx Alcohol Use: Yes Hx Substance Use: Yes Preferred Language: Guatemalan Visual Impairment: No Limitations Hearing Ability: Normal marital status: Current Living Situation: Family Current Living Situation Comment: with sister current occupational status: disabled Feels Safe at Home: Yes Childhood Exposure to Second-Hand Smoke: No Dental Care, Regularly: No Physical Activity Frequency: 3-4 Times per Week Seatbelt Use: always Sunscreen Use: Yes Review of Systems A total of 10 systems reviewed and were otherwise negative Physical Exam Vital Signs Vital Signs - 24 hr 04/16/20 18:56 04/16/20 19:03 04/16/20 19:18 Temperature 37.4 C Temperature Source Oral Pulse Rate 143 H 95 H 104 H Pulse Rate [Apical] Pulse Rate from SpO2 Sensor Pulse Rhythm Regular Respiratory Rate 20 15 19 Blood Pressure 165/103 H 145/104 H Blood Pressure [Right Arm] Blood Pressure Mean 123 126 Blood Pressure Mean [Right Arm] Blood Pressure Position Sitting Pulse Oximetry 96 94 Oxygen Delivery Method Room Air Room Air Sepsis Recent Fever Within 48 Hours No Sepsis New/Unexplained Change in Mental Status N/A Sepsis Action Taken by Nursing No Action Required 04/16/20 19:28 04/16/20 19:30 04/16/20 19:31 Temperature Temperature Source Pulse Rate 108 H 105 H 105 H Pulse Rate [Apical] Pulse Rate from SpO2 Sensor Pulse Rhythm Respiratory Rate 16 17 19 Blood Pressure 154/105 H Blood Pressure [Right Arm] Blood Pressure Mean 123 Blood Pressure Mean [Right Arm] Blood Pressure Position Pulse Oximetry Oxygen Delivery Method Sepsis Recent Fever Within 48 Hours Sepsis New/Unexplained Change in Mental Status Sepsis Action Taken by Nursing 04/16/20 19:45 04/16/20 20:00 04/16/20 20:01 Temperature Temperature Source Pulse Rate 99 H 83 84 Pulse Rate [Apical] Pulse Rate from SpO2 Sensor 99 H 83 85 Pulse Rhythm Respiratory Rate 14 14 20 Blood Pressure 152/102 H 144/100 H Blood Pressure [Right Arm] Blood Pressure Mean 110 107 Blood Pressure Mean [Right Arm] Blood Pressure Position Pulse Oximetry 93 97 97 Oxygen Delivery Method Sepsis Recent Fever Within 48 Hours Sepsis New/Unexplained Change in Mental Status Sepsis Action Taken by Nursing 04/16/20 20:15 04/16/20 20:27 04/16/20 20:30 Temperature Temperature Source Pulse Rate 78 88 86 Pulse Rate [Apical] Pulse Rate from SpO2 Sensor 79 89 86 Pulse Rhythm Respiratory Rate 15 20 17 Blood Pressure 156/96 H 156/96 H 157/102 H Blood Pressure [Right Arm] Blood Pressure Mean 126 126 117 Blood Pressure Mean [Right Arm] Blood Pressure Position Pulse Oximetry 97 96 96 Oxygen Delivery Method Sepsis Recent Fever Within 48 Hours Sepsis New/Unexplained Change in Mental Status Sepsis Action Taken by Nursing 04/16/20 20:31 04/16/20 20:46 04/16/20 21:09 Temperature Temperature Source Pulse Rate 83 95 H Pulse Rate [Apical] Pulse Rate from SpO2 Sensor 83 Pulse Rhythm Respiratory Rate 17 21 Blood Pressure 157/102 H Blood Pressure [Right Arm] Blood Pressure Mean 117 Blood Pressure Mean [Right Arm] Blood Pressure Position Pulse Oximetry 96 Oxygen Delivery Method Sepsis Recent Fever Within 48 Hours Sepsis New/Unexplained Change in Mental Status Sepsis Action Taken by Nursing 04/16/20 21:30 04/16/20 22:52 04/17/20 00:05 Temperature Temperature Source Pulse Rate 81 Pulse Rate [Apical] 98 H 97 H Pulse Rate from SpO2 Sensor Pulse Rhythm Respiratory Rate 25 H 18 18 Blood Pressure Blood Pressure [Right Arm] 149/113 H 166/95 H Blood Pressure Mean Blood Pressure Mean [Right Arm] 125 118 Blood Pressure Position Pulse Oximetry 96 92 Oxygen Delivery Method Room Air Room Air Sepsis Recent Fever Within 48 Hours Sepsis New/Unexplained Change in Mental Status Sepsis Action Taken by Nursing Physical Exam GENERAL: She is oriented to person, place, and time. She appears well-developed and well-nourished. She does not appear distressed. HENT: Exam performed. -Head: Normocephalic and atraumatic. -Right Ear: External ear normal. No mastoid tenderness. -Left Ear: External ear normal. No mastoid tenderness. -Mouth/Throat: The oropharynx is clear and moist. No trismus in the jaw. No dental abscesses or uvula swelling. No oropharyngeal exudate or tonsillar abscesses. EYES: Conjunctivae and EOM are normal. Pupils are equal, round, and reactive to light. Right eye exhibits no discharge. Left eye exhibits no discharge. No scleral icterus. NECK: Normal range of motion. Neck supple. No JVD present. No spinous process tenderness present. No carotid bruit present. No rigidity. No tracheal deviation and normal range of motion present. No Brudzinski's sign and no Kernig's sign noted. CV: Normal rate, regular rhythm, normal heart sounds and intact distal pulses. There is no peripheral edema. Palpable radial pulses bue. PULM/CHEST: Effort normal and breath sounds normal. No respiratory distress. No stridor. She has no wheezes. She has no rales. -Chest Wall: She exhibits no tenderness. ABD: The abdomen is soft. Bowel sounds are normal. She has no distension. No mass is present. There is no tenderness. There is no rebound, no guarding, no Porras's sign and no tenderness at McBurney's point. Rovsig negative MUSC/SKEL: Normal range of motion. There is no peripheral edema, tenderness or deformity. LYMPH: No cervical adenopathy. NEURO: She is alert and oriented to person, place, and time. She has normal strength. No cranial nerve deficit or sensory deficit. Coordination and gait normal. GCS eye subscore is 4. GCS verbal subscore is 5. GCS motor subscore is 6. Cerebellar tests wnl. SKIN: Skin is warm and dry. She is not diaphoretic. PSYCH: She has a normal mood and affect. Behavior is normal. Judgment and thought content normal. Course Course 190: The patient was evaluated in room B8. A complete history and physical exam was performed. Cardiac monitoring: An order was placed for continuous cardiac monitoring. The monitor shows a rate of 120 with sinus tachycardia rhythm Patient was seen in full airborne precautions. Patient was seen in N95's, gloves, gowns, face shield by myself and staff. 2215: Vital signs stable. Patient's D-dimer is within normal limits. Chest x- ray within normal limits. Labs show an elevated lipase. Imaging shows pancreatitis. On reassessment the patient is reporting abdominal pain. Increase analgesia and repeat fluids given. Patient will be admitted for panc reatitis. Patient denies any alcohol usage. Administered Medications Discontinued Medications Sodium Chloride (Nss 1000ml) 1,000 mls @ 999 mls/hr IV .Q1H1M ONE Stop: 04/16/20 20:12 Last Infusion: 04/16/20 20:44 Dose: 0 mls/hr Documented by: [id number] Admin: 04/16/20 19:42 Dose: 999 mls/hr Documented by: [id number] Sodium Chloride (Nss 1000ml) 1,000 mls @ 999 mls/hr IV .Q1H1M ONE Stop: 04/16/20 23:01 Last Admin: 04/16/20 22:58 Dose: 999 mls/hr Documented by: [id number] Ioversol (Ioversol 100ml) 93 ml IV ONCE ONE Stop: 04/16/20 21:00 Last Admin: 04/16/20 21:00 Dose: 93 ml Documented by: [id number] Morphine Sulfate (Morphine Sulfate 4 Mg/Ml 1 Ml Carp\Vial) 4 mg IV NOW STA Stop: 04/16/20 22:02 Last Admin: 04/16/20 22:58 Dose: 4 mg Documented by: [id number] Ondansetron HCl (Ondansetron Inj 2 Mg/Ml 2 Ml Vial) 4 mg IV NOW STA Stop: 04/16/20 19:11 Last Admin: 04/16/20 19:52 Dose: Not Given Documented by: [id number] Ondansetron HCl (Ondansetron Inj 2 Mg/Ml 2 Ml Vial) Confirm Administered Dose 4 mg .ROUTE .STK-MED ONE Stop: 04/16/20 19:12 Last Admin: 04/16/20 19:41 Dose: 4 mg Documented by: [id number] Potassium Chloride (Potassium Chloride 10 Meq Tabcr) 40 meq PO NOW STA Stop: 04/16/20 20:26 Last Admin: 04/16/20 20:44 Dose: 40 meq Documented by: [id number] Medical Decision Making Laboratory Data Result diagrams: 04/16/20 19:32 04/16/20 19:32 Lab Results 04/16/20 04/16/20 04/16/20 Range/Units 19:17 19:17 19:32 WBC 8.32 (4.8-10.8) K/uL RBC 5.03 (4.2-5.4) M/uL Hgb 14.6 (12.0-16.0) g/dL Hct 41.9 (37-47) % MCV 83.3 (80-100) fL MCH 29.0 (25-34) pg MCHC 34.8 (32-36) g/dL RDW Std Deviation 39.7 (36.4-46.3) fL RDW Coeff of Natali 13.3 (11.5-14.5) % Plt Count 241 (130-400) K/uL MPV 10.9 H (7.4-10.4) fL Immature Gran % (Auto) 0.1 % Neut % (Auto) 65.8 % Lymph % (Auto) 26.1 % [place] % (Auto) 7.1 % Eos % (Auto) 0.7 % Baso % (Auto) 0.2 % Neut # (Auto) 5.47 (1.4-6.5) K/uL Lymph # (Auto) 2.17 (1.2-3.4) K/uL [place] # (Auto) 0.59 (0.11-0.59) K/uL Eos # (Auto) 0.06 (0-0.5) K/uL Baso # (Auto) 0.02 (0-0.2) K/uL Immature Gran # (Auto) 0.01 (0.00-0.02) K/uL PT (9.0-12.0) Seconds INR (0.9-1.1) APTT (21.0-31.0) Seconds PTT Ratio D-Dimer (0-500) ug/L FEU Sodium (136-145) mmol/L Potassium (3.5-5.1) mmol/L Chloride (98-107) mmol/L Carbon Dioxide (21-32) mmol/L Anion Gap (3-11) BUN (7-18) mg/dl Creatinine (0.6-1.2) mg/dl Est Cr Clr Drug Dosing ml/min Est GFR ( Amer) Est GFR (Non-Af Amer) BUN/Creatinine Ratio (10-20) Glucose (70-99) mg/dl Lactate (0.4-2.0) mmol/L Calcium (8.5-10.1) mg/dl Magnesium (1.8-2.4) mg/dl Total Bilirubin (0.2-1) mg/dl AST (15-37) U/L ALT (12-78) U/L Alkaline Phosphatase (45-117) U/L Troponin I (0-0.045) ng/ml Total Protein (6.4-8.2) gm/dl Albumin (3.4-5.0) gm/dl Globulin (2.5-4.0) gm/dl Albumin/Globulin Ratio (0.9-2) Lipase (73-393) U/L Procalcitonin (0-0.5) ng/ml Urine Color Urine Appearance (Clear) Urine pH (4.5-7.5) Ur Specific [place] (1.000-1.030) Urine Protein (Negative) Urine Glucose (UA) (Negative) Urine Ketones (Negative) Urine Blood (Negative) Urine Nitrite (Negative) Urine Bilirubin (Negative) Urine Urobilinogen (Negative) Ur Leukocyte Esterase (Negative) Urine WBC (Auto) (0-5) /hpf Urine RBC (Auto) (0-4) /hpf U Hyaline Cast (Auto) (0-5) /lpf U Epithel Cells (Auto) (0-5) /lpf Urine Bacteria (Auto) (Negative) COVID-19 Eval Order Covid19 IDNow [facility] SARS-CoV-2, RNA, NAAT NEGATIVE (NEGATIVE) 04/16/20 04/16/20 04/16/20 Range/Units 19:32 19:32 19:32 WBC (4.8-10.8) K/uL RBC (4.2-5.4) M/uL Hgb (12.0-16.0) g/dL Hct (37-47) % MCV (80-100) fL MCH (25-34) pg MCHC (32-36) g/dL RDW Std Deviation (36.4-46.3) fL RDW Coeff of Natali (11.5-14.5) % Plt Count (130-400) K/uL MPV (7.4-10.4) fL Immature Gran % (Auto) % Neut % (Auto) % Lymph % (Auto) % [place] % (Auto) % Eos % (Auto) % Baso % (Auto) % Neut # (Auto) (1.4-6.5) K/uL Lymph # (Auto) (1.2-3.4) K/uL [place] # (Auto) (0.11-0.59) K/uL Eos # (Auto) (0-0.5) K/uL Baso # (Auto) (0-0.2) K/uL Immature Gran # (Auto) (0.00-0.02) K/uL PT 11.2 (9.0-12.0) Seconds INR 1.1 (0.9-1.1) APTT 29.4 (21.0-31.0) Seconds PTT Ratio 1.1 D-Dimer 290 (0-500) ug/L FEU Sodium 140 (136-145) mmol/L Potassium 3.0 L (3.5-5.1) mmol/L Chloride 104 (98-107) mmol/L Carbon Dioxide 25 (21-32) mmol/L Anion Gap 11.0 (3-11) BUN 12 (7-18) mg/dl Creatinine 0.93 (0.6-1.2) mg/dl Est Cr Clr Drug Dosing 73.7 ml/min Est GFR ( Amer) 78.0 Est GFR (Non-Af Amer) 67.3 BUN/Creatinine Ratio 12.8 (10-20) Glucose 141 H (70-99) mg/dl Lactate (0.4-2.0) mmol/L Calcium 10.5 H (8.5-10.1) mg/dl Magnesium 1.8 (1.8-2.4) mg/dl Total Bilirubin 0.5 (0.2-1) mg/dl AST 8 L (15-37) U/L ALT 16 (12-78) U/L Alkaline Phosphatase 117 (45-117) U/L Troponin I < 0.015 (0-0.045) ng/ml Total Protein 8.0 (6.4-8.2) gm/dl Albumin 4.3 (3.4-5.0) gm/dl Globulin 3.7 (2.5-4.0) gm/dl Albumin/Globulin Ratio 1.1 (0.9-2) Lipase 1729 H (73-393) U/L Procalcitonin < 0.05 (0-0.5) ng/ml Urine Color Urine Appearance (Clear) Urine pH (4.5-7.5) Ur Specific [place] (1.000-1.030) Urine Protein (Negative) Urine Glucose (UA) (Negative) Urine Ketones (Negative) Urine Blood (Negative) Urine Nitrite (Negative) Urine Bilirubin (Negative) Urine Urobilinogen (Negative) Ur Leukocyte Esterase (Negative) Urine WBC (Auto) (0-5) /hpf Urine RBC (Auto) (0-4) /hpf U Hyaline Cast (Auto) (0-5) /lpf U Epithel Cells (Auto) (0-5) /lpf Urine Bacteria (Auto) (Negative) COVID-19 Eval Order SARS-CoV-2, RNA, NAAT (NEGATIVE) 04/16/20 04/16/20 Range/Units 19:33 21:34 WBC (4.8-10.8) K/uL RBC (4.2-5.4) M/uL Hgb (12.0-16.0) g/dL Hct (37-47) % MCV (80-100) fL MCH (25-34) pg MCHC (32-36) g/dL RDW Std Deviation (36.4-46.3) fL RDW Coeff of Natali (11.5-14.5) % Plt Count (130-400) K/uL MPV (7.4-10.4) fL Immature Gran % (Auto) % Neut % (Auto) % Lymph % (Auto) % [place] % (Auto) % Eos % (Auto) % Baso % (Auto) % Neut # (Auto) (1.4-6.5) K/uL Lymph # (Auto) (1.2-3.4) K/uL [place] # (Auto) (0.11-0.59) K/uL Eos # (Auto) (0-0.5) K/uL Baso # (Auto) (0-0.2) K/uL Immature Gran # (Auto) (0.00-0.02) K/uL PT (9.0-12.0) Seconds INR (0.9-1.1) APTT (21.0-31.0) Seconds PTT Ratio D-Dimer (0-500) ug/L FEU Sodium (136-145) mmol/L Potassium (3.5-5.1) mmol/L Chloride (98-107) mmol/L Carbon Dioxide (21-32) mmol/L Anion Gap (3-11) BUN (7-18) mg/dl Creatinine (0.6-1.2) mg/dl Est Cr Clr Drug Dosing ml/min Est GFR ( Amer) Est GFR (Non-Af Amer) BUN/Creatinine Ratio (10-20) Glucose (70-99) mg/dl Lactate 1.8 (0.4-2.0) mmol/L Calcium (8.5-10.1) mg/dl Magnesium (1.8-2.4) mg/dl Total Bilirubin (0.2-1) mg/dl AST (15-37) U/L ALT (12-78) U/L Alkaline Phosphatase (45-117) U/L Troponin I (0-0.045) ng/ml Total Protein (6.4-8.2) gm/dl Albumin (3.4-5.0) gm/dl Globulin (2.5-4.0) gm/dl Albumin/Globulin Ratio (0.9-2) Lipase (73-393) U/L Procalcitonin (0-0.5) ng/ml Urine Color Yellow Urine Appearance Clear (Clear) Urine pH 5.5 (4.5-7.5) Ur Specific [place] 1.017 (1.000-1.030) Urine Protein 1+ H (Negative) Urine Glucose (UA) Negative (Negative) Urine Ketones 1+ H (Negative) Urine Blood Negative (Negative) Urine Nitrite Negative (Negative) Urine Bilirubin Negative (Negative) Urine Urobilinogen Negative (Negative) Ur Leukocyte Esterase Trace H (Negative) Urine WBC (Auto) 10-30 H (0-5) /hpf Urine RBC (Auto) 0-4 (0-4) /hpf U Hyaline Cast (Auto) 10-30 H (0-5) /lpf U Epithel Cells (Auto) >30 H (0-5) /lpf Urine Bacteria (Auto) Negative (Negative) COVID-19 Eval Order SARS-CoV-2, RNA, NAAT (NEGATIVE) Imaging Data My Impression: CT ABDOMEN & PELVIS With Contrast: Comparison: CT abdomen and pelvis 08/08/15. Peripancreatic fat stranding suggesting acute pancreatitis. Correlate with serum lipase. No evidence of parenchymal necrosis. No organized peripancreatic collections. Elevated left hemidiaphragm with left basilar atelectasis. Stable hypodense lesion in the medial spleen. Stable hemangioma right hepatic lobe. Cholecystectomy. Adrenal glands are unremarkable. Symmetric renal enhancement. No hydronephrosis. Subcentimeter right renal cyst. Nonobstructing left kidney stone. Normal appendix. No bowel obstruction or inflammation. Urinary bladder and uterus are unremarkable. No acute osseous findings. Radiologist: Allyssa Villafuerte M.D. Study ready at 21:14 and initial results transmitted at 21:32 Preliminary Findings Only See Final Report For Complete Findings CT HEAD: Comparison: CT head 11/09/12. No ICH, mass-effect, or edema. No skull fracture. Moderate mucosal thickening right maxillary sinus. Radiologist: Allyssa Villafuerte M.D. Study ready at 21:11 and initial results transmitted at 21:12 Radiologist's Impression: XR chest 1V portable CLINICAL HISTORY: SEPSIS COMPARISON STUDY: June 2017 FINDINGS: There are postsurgical changes of midline sternotomy. There is marked elevation/eventration left hemidiaphragm. There is no failure. There is no focal pulmonary consolidation. There are no pleural effusions.[ IMPRESSION: 1. Persistent marked elevation/eventration left hemidiaphragm. 2. No acute findings. ACT 112: Negative or not required by law. Electronically signed by: Miguel Angel James M.D. 04/16/2020 8:10 PM Dictated: 04/16/202008Transcribed: 04/16/202008 ECG Data Indication: + weakness Rate (beats per minute): 99 Rhythm: + normal sinus ECG Intervals/blocks: + Normal QRS, + Normal AR and + Normal QT-c ECG ST segments: + Normal ST segments [facility] Narrative 1901: The patient was evaluated in room B8. A complete history and physical exam was performed. Cardiac monitoring: An order was placed for continuous cardiac monitoring. The monitor shows a rate of 120 with sinus tachycardia rhythm Patient was seen in full airborne precautions. Patient was seen in N95's, gloves, gowns, face shield by myself and staff. 2215: Vital signs stable. Patient's D-dimer is within normal limits. Chest x- ray within normal limits. Labs show an elevated lipase. Imaging shows pancreatitis. On reassessment the patient is reporting abdominal pain. I ncrease analgesia and repeat fluids given. Patient will be admitted for pancreatitis. Patient denies any alcohol usage. Impression & Plan Acute pancreatitis Discharge Plan Visit Data Chief Complaint: Fever Stated Complaint: SICK SINCE 04/13, FEVER ED Provider: Bird Isaac Discharge Problem: Acute pancreatitis Patient Disposition: Admitted As Inpatient Discharge Instructions Interventions: ED Discharge Assessment Last Done: 04/17/20 00:11 Forms Stand Al[facility] Prescriptions Prescriptions: No Action atorvastatin 40 mg tablet 40 mg PO DAILY Qty: 30 RF: 5 losartan 25 mg tablet 25 mg PO DAILY Qty: 30 RF: 5 ergocalciferol (vitamin D2) [Vitamin D2] 1,250 mcg (50,000 unit) capsule 50,000 units PO WK Qty: 12 RF: 1 oxybutynin chloride 10 mg tablet extended release 24hr 10 mg PO DAILY Qty: 30 RF: 5 ibuprofen 600 mg tablet 600 mg PO TID PRN (Reason: pain) Qty: 90 RF: 5 sumatriptan succinate 6 mg/0.5 mL pen injector 6 mg subcut .COMPLEX PRN (Reason: Migraine Headache) Qty: 1 RF: 0 multivitamin [Daily Multi-Vitamin] tablet 1 tab PO DAILY RF: 0 ferrous sulfate 325 mg (65 mg iron) tablet,delayed release (DR/EC) 325 mg PO BID Qty: 60 RF: 5 gabapentin 800 mg tablet 800 mg PO TID Qty: 90 RF: 5 topiramate 100 mg capsule,sprinkle,ER 24hr 100 mg PO DAILY 90 Days Qty: 90 RF: 1 venlafaxine 150 mg capsule,extended release 24hr 150 mg PO QAM Qty: 30 RF: 0 propranolol 160 mg capsule,extended release 24 hr 160 mg PO HS 30 Days Qty: 30 RF: 5 Emgality Pen 120 mg/mL pen injector 120 mg SQ MONTHLY 30 Days Qty: 1 RF: 5 rizatriptan 10 mg tablet 10 mg PO .COMPLEX PRN (Reason: Migraine Headache) 90 Days Qty: 27 RF: 1 tizanidine 4 mg tablet 4 mg PO QID PRN (Reason: muscle spasticity) Qty: 90 RF: 5 promethazine 25 mg tablet 25 mg PO BID PRN (Reason: migraine, nausea) Qty: 60 RF: 1 venlafaxine 75 mg capsule,extended release 24hr 75 mg PO QAM RF: 0 clonazepam 0.5 mg tablet 0.5 mg PO .COMPLEX PRN (Reason: Unknown) RF: 0 buspirone 30 mg tablet 30 mg PO HS RF: 0 trazodone 50 mg tablet 50 mg PO HS RF: 0 chlorpromazine 10 mg tablet 10 mg PO HS RF: 0 Referrals Referrals: Brent Dye III, CRNP [Primary Care Provider] - Discharge Problem: Acute pancreatitis Qualifiers: Pancreatitis type: unspecified pancreatitis type Acute pancreatitis complication: no infection or necrosis Qualified Code(s): K85.90 - Acute pancreatitis without necrosis or infection, unspecified
[2020-04-16 19:43] LABS: Basophils # (auto) 0.02 K/uL (0-0.2); Basophils % (auto) 0.2 %; Eosinophils # (auto) 0.06 K/uL (0-0.5); Eosinophils % (auto) 0.7 %; Hematocrit (blood only) 41.9 % (37-47); Hemoglobin 14.6 g/dL (12.0-16.0); Immature Granulocytes # (auto) 0.01 K/uL (0.00-0.02); Immature Granulocytes % (auto) 0.1 %; Lymphocytes # (auto) 2.17 K/uL (1.2-3.4); Lymphocytes % (auto) 26.1 %; Mean Corpuscular Hgb Conc 34.8 g/dL (32-36); Mean Corpuscular Volume 83.3 fL (80-100); Mean Platelet Volume 10.9 fL (7.4-10.4); Monocytes # (auto) 0.59 K/uL (0.11-0.59); Monocytes % (auto) 7.1 %; Neutrophils # (auto) 5.47 K/uL (1.4-6.5); Neutrophils % (auto) 65.8 %; Platelet Count 241 K/uL (130-400); RDW Coefficient of Variation 13.3 % (11.5-14.5); RDW Standard Deviation 39.7 fL (36.4-46.3); Red Blood Count 5.03 M/uL (4.2-5.4); White Blood Count 8.32 K/uL (4.8-10.8)
[2020-04-16 19:54] LABS: D Dimer 290 ug/L FEU (0-500); INR 1.1 (0.9-1.1); Partial Thromboplastin Ratio 1.1; Partial Thromboplastin Time 29.4 Seconds (21.0-31.0); Prothrombin Time 11.2 Seconds (9.0-12.0)
[2020-04-16 19:59] LABS: Alanine Aminotransferase 16 U/L (12-78); Albumin Level 4.3 gm/dl (3.4-5.0); Aspartate Aminotransferase 8 U/L (15-37); BUN Creatinine Ratio 12.8 (10-20); Blood Urea Nitrogen 12 mg/dl (7-18); Calcium 10.5 mg/dl (8.5-10.1); Carbon Dioxide 25 mmol/L (21-32); Chloride 104 mmol/L (98-107); Creatinine Clr Calc Pharmacy 73.7 ml/min; Est GFR (Non-African American) 67.3; Glucose 141 mg/dl (70-99); Magnesium 1.8 mg/dl (1.8-2.4); Sodium 140 mmol/L (136-145)
[2020-04-16 20:04] LABS: Albumin Globulin Ratio 1.1 (0.9-2); Alkaline Phosphatase 117 U/L (45-117); Bilirubin,Total 0.5 mg/dl (0.2-1); Globulin 3.7 gm/dl (2.5-4.0); Troponin I < 0.015 ng/ml (0-0.045)
--- NOTE | 2020-04-16 20:12 | XRay Report ---
XR chest 1V portable CLINICAL HISTORY: SEPSIS COMPARISON STUDY: June 2017 FINDINGS: There are postsurgical changes of midline sternotomy. There is marked elevation/eventration left hemidiaphragm. There is no failure. There is no focal pulmonary consolidation. There are no ple ural effusions.[ IMPRESSION: 1. Persistent marked elevation/eventration left hemidiaphragm. 2. No acute findings. ACT 112: Negative or not required by law. Electronically signed by: Miguel Angel James M.D. 04/16/2020 8:10 PM
[2020-04-16] MEDS ORDERED: POTASSIUM CHLORIDE 10 MEQ TABCR PO STA (20:25)
[2020-04-16] MEDS ORDERED: IOVERSOL 100ml IV ONE (20:59)
[2020-04-16 21:45] LABS: Appearance Urine Clear (Clear); Bacteria Urine Automated Negative (Negative); Bilirubin Urine Negative (Negative); Blood Urine Negative (Negative); Color Urine Yellow; Epithelial Cell Urine Auto >30 /lpf (0-5); Glucose Urine UA Negative (Negative); Ketones Urine 1+ (Negative); Leukocyte Esterase Urine Trace (Negative); Nitrite Urine Negative (Negative); Protein Urine 1+ (Negative); RBC Urine Automated 0-4 /hpf (0-4); Specific Gravity Urine 1.017 (1.000-1.030); Urobilinogen Urine Negative (Negative); pH Urine 5.5 (4.5-7.5)
[2020-04-16 21:54] LABS: Lipase 1729 U/L (73-393)
[2020-04-16] MEDS ORDERED: MoRPHine SULFATE 4 MG/ML 1 ML CARP\\VIAL IV STA (22:01)
--- NOTE | 2020-04-16 23:24 | History & Physical Report ---
Date of Service April 16, 2020 Assessment & Plan (1) Pancreatitis, acute: 60yo C female presenting with acute pancreatitis. Mid-abdominal tenderness with radiation to her back, elevated lipase of 1729. CT of the Abdomen performed (awaiting report from STAT rad), appears to have some edema and stranding around the pancreas. No history of EtOH use, patient is s/p cholecystectomy and liver panel is unremarkable with normal AP, TBili and AST/ALT. She does have a mildly elevated Calcium of 10.5 with normal Albumin level. This is elevated from prior Ca of 8.6 on 03/23/20. Unclear if this could be cause of acute pancreatitis as hypercalcemia is a rare cause. Mg is WNL. Patient had a lipid panel performed on 03/23/20 with Wbbe=807, HDL=46, SZ=723 -Admit to medical with telemetry -Check ionized calcium level -NPO except chips/sips as tolerated -NSS at 250mL/hr x 2 liters -Zofran 4mg IV q 6 hours as needed -Morphine 2mg IV q 2 hours as needed Present on Admission?: Yes (2) Edema of left lower extremity: Patient's LLE appears slightly swollen in comparison with RLE. Nontender, Uli's sign negative. -Check vennous doppler to rule out DVT Present on Admission?: Yes (3) Hyperlipidemia: Chronic -Check lipid panel as above -Continue Atorvastatin 40mg po daily (4) Hypertension: Chronic. Mildly elevated at 157/102 currently in setting of acute pain -Continue Losartan 25mg po daily -Continue Propranolol as below -Continue to monitor BP (5) Diabetes: Chronic. Well controlled. Last FpcD7B=6.2 on 03/23/20. Patient's HgBA1C has been below 6.5 since 11/2013. -Hold Metformin -Monitor blood sugars with AM labs. No insulin coverage at this time Present on Admission?: Yes (6) Insomnia: Chronic. Stable. Patient requests her medication to sleep -Continue Trazodone 50mg po qHS -Continue Chlorpromazine qHS Present on Admission?: Yes (7) Depression with anxiety: Chronic. Stable -Continue Venlafaxine -Continue Buspirone Present on Admission?: Yes (8) Tremor: Noted. -Continue Propranolol 160mg po daily F/E/N - NSS at 250mL/hr x 2 L in acute pancreatitis, Check ICal, PO4 x 1, K repleted with 40mEq po, repeat labs in AM, NPO for now Ppx - Low risk for DVT. SCDs Code - Full per discussion with patient Dispo - Admit to medical with telemetry Topamax daily for migraine prophylaxis Present on Admission?: Yes History of Present Illness Chief Complaint: abdominal pain Primary Care Provider: Brent Dye III, [place] Yaquelin Trinh is a 60yo C female with history of HTN, HLP, DM, COPD and Depression presenting with acute pancreatitis. Patient developed nausea with multiple episodes of nonbloody/nonbilious vomiting 3 days ago. She was unable to tolerate PO intake. Also with multiple episodes of watery diarrhea, low grade subjective fevers and epigastric abdominal pain with bandlike radiation into her back. Patient has no prior history of pancreatitis. No EtOH intake. No new medications. S/p laparoscopic cholecystectomy performed in 2013 for symptomatic cholelithiasis. Presently complaining of severe mid-abdominal pain with radiation to her back as well as some nausea. No additional complaints at this time - specifically no CP/palpit ations/SOB/cough/dysuria. No calf pain. No known exposure to Covid-19 positive individuals. Rapid Covid-19 antigen testing as performed in the ER is NEGATIVE ER Course: Zofran 4mg IV x 2, Morphine 4mg IV, KCL 40mEq (for K of 3), NSS x 2L Allergies Allergy/AdvReac Type Severity Reaction Status Date / Time Bactrim Allergy Intermediate itching, Verified 06/01/17 10:40 chest tightness latex Allergy Intermediate rash Verified 04/17/20 00:00 sulfamethoxazole Allergy Intermediate itching, Verified 04/17/20 00:00 chest tightness trimethoprim Allergy Intermediate itching, Verified 04/17/20 00:00 chest tightness adhesive Allergy Unknown ITCHY SKIN Verified 04/17/20 00:00 doxycycline Allergy nausea and Verified 04/17/20 00:00 vomiting clindamycin AdvReac Severe Diarrhea Verified 04/17/20 00:00 Home Medications Medication Instructions Recorded Confirmed Type venlafaxine 75 mg PO QAM 07/20/18 04/16/20 History multivitamin 1 tab PO DAILY 10/26/18 04/16/20 History ferrous sulfate 325 mg (65 mg 325 mg PO BID #60 tab 12/01/18 04/16/20 Rx iron) tablet,delayed release venlafaxine 150 mg 150 mg PO QAM #30 cap 01/24/19 04/16/20 History capsule,extended release 24 hr atorvastatin 40 mg tablet 40 mg PO DAILY #30 tab 06/20/19 04/16/20 Rx losartan 25 mg tablet 25 mg PO DAILY #30 tab 10/13/19 04/16/20 Rx ergocalciferol (vitamin D2) 1,250 50,000 units PO WK #12 cap 11/14/19 04/16/20 Rx mcg (50,000 unit) capsule oxybutynin chloride 10 mg 10 mg PO DAILY #30 tab 11/28/19 04/16/20 Rx tablet,extended release 24 hr ibuprofen 600 mg tablet 600 mg PO TID PRN #90 tab 12/27/19 04/16/20 Rx clonazepam 0.5 mg tablet 0.5 mg PO .COMPLEX PRN tab 01/04/20 04/16/20 History galcanezumab-gnlm 120 mg/mL 120 mg SQ MONTHLY 30 Days #1 ml 01/04/20 04/16/20 Rx subcutaneous pen injector promethazine 25 mg tablet 25 mg PO BID PRN #60 tab 01/04/20 04/16/20 Rx propranolol 160 mg capsule,24 160 mg PO HS 30 Days #30 cap 01/04/20 04/16/20 Rx hr,extended release rizatriptan 10 mg tablet 10 mg PO .COMPLEX PRN 90 Days #27 01/04/20 04/16/20 Rx tab tizanidine 4 mg tablet 4 mg PO QID PRN #90 tab 01/04/20 04/16/20 Rx sumatriptan succinate 6 mg/0.5 mL 6 mg SUBCUT .COMPLEX PRN #1 ml 03/18/20 04/16/20 Rx subcutaneous pen injector gabapentin 800 mg tablet 800 mg PO TID #90 tab 04/10/20 04/16/20 Rx topiramate 100 mg capsule 100 mg PO DAILY 90 Days #90 ea 04/10/20 04/16/20 Rx sprinkle,extended release 24 hr buspirone 30 mg PO HS 04/16/20 04/16/20 History chlorpromazine 10 mg PO HS 04/16/20 04/16/20 History trazodone 50 mg PO HS 04/16/20 04/16/20 History Past Med/Surg History Medical History Depression (09/09/12) Diabetes History of uterine fibroid Hyperlipidemia Hypertension Migraine (09/09/12) Panic attack (09/09/12) PMB (postmenopausal bleeding) Surgical History History 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 History of laparoscopic cholecystectomy S/P surgical removal of pilonidal cyst Family History Sister Rheumatoid arthritis Steatorrhea Mother Hypertension Father Parkinson disease Denies family history of Ovarian cancer Prostate cancer Myocardial infarction Breast cancer Colorectal cancer Social History Smoking Status: Former smoker Age Started Using Tobacco: 21; Age Quit Using Tobacco: 58; packs per day: 1; Years Smoked: 37; Cigarettes Per Day: 5-8; Number of Years Since Quit: 1; Second Hand Exposure: Yes; Hx Alcohol Use: Yes Hx Substance Use: Yes Preferred Language: Kyrgyz Visual Impairment: No Limitations Hearing Ability: Normal marital status: Current Living Situation: Family Current Living Situation Comment: with sister current occupational status: disabled Feels Safe at Home: Yes Childhood Exposure to Second-Hand Smoke: No Dental Care, Regularly: No Physical Activity Frequency: 3-4 Times per Week Seatbelt Use: always Sunscreen Use: Yes Review of Systems Review of Systems: All systems reviewed & are unremarkable except as noted in HPI & below Physical Exam Physical Exam: General: patient restless, uncomfortable but in NAD, non-toxic in appearance, AA&O x 4 Skin: warm, dry, intact, no rashes or lesions, no jaundice HEENT: NC/AT, PERRL, EOMI, anicteric sclera, conjunctiva without injection, external ear normal to inspection and nontender, nares patent, slightly dry mucus membranes, dentition intact, no oropharyngeal lesions, neck supple, trachea midline, no LAD, no thyromegaly, no JVD Heart: +S1/S2, regular, no m/r/g Lungs: equal air entry bilaterally, no rales/rhonchi/wheezes Abd: +BS, soft, +epigastric tenderness, no rebound/guarding/peritoneal signs Ext: LLE appears to be slightly swollen and warm to touch, no tenderness, negative Uli's sign Neuro: nonfocal, patient AA&O x 4, speech intact, no facial droop, moving all extremities on command with equal strength 5/5, slight resting tremor noted on feet and hands Results & Data Results & Data ([facility]) Vital Signs (Past 12 Hours) Vital Signs Temp Pulse Pulse Resp BP BP Pulse Ox 04/16/20 22:52 98 H 18 149/113 H 96 04/16/20 21:30 81 25 H 04/16/20 21:09 95 H 21 04/16/20 20:46 157/102 H 04/16/20 20:31 83 17 96 04/16/20 20:30 86 17 157/102 H 96 04/16/20 20:27 88 20 156/96 H 96 04/16/20 20:15 78 15 156/96 H 97 04/16/20 20:01 84 20 97 04/16/20 20:00 83 14 144/100 H 97 04/16/20 19:45 99 H 14 152/102 H 93 04/16/20 19:31 105 H 19 04/16/20 19:30 105 H 17 154/105 H 04/16/20 19:28 108 H 16 04/16/20 19:18 104 H 19 145/104 H 04/16/20 19:03 95 H 15 94 04/16/20 18:56 37.4 C 143 H 20 165/103 H 96 Laboratory Results Lab Results 04/16/20 04/16/20 04/16/20 Range/Units 19:17 19:17 19:32 WBC 8.32 (4.8-10.8) K/uL RBC 5.03 (4.2-5.4) M/uL Hgb 14.6 (12.0-16.0) g/dL Hct 41.9 (37-47) % MCV 83.3 (80-100) fL MCH 29.0 (25-34) pg MCHC 34.8 (32-36) g/dL RDW Std Deviation 39.7 (36.4-46.3) fL RDW Coeff of Natali 13.3 (11.5-14.5) % Plt Count 241 (130-400) K/uL MPV 10.9 H (7.4-10.4) fL Immature Gran % (Auto) 0.1 % Neut % (Auto) 65.8 % Lymph % (Auto) 26.1 % Dodge % (Auto) 7.1 % Eos % (Auto) 0.7 % Baso % (Auto) 0.2 % Neut # (Auto) 5.47 (1.4-6.5) K/uL Lymph # (Auto) 2.17 (1.2-3.4) K/uL Dodge # (Auto) 0.59 (0.11-0.59) K/uL Eos # (Auto) 0.06 (0-0.5) K/uL Baso # (Auto) 0.02 (0-0.2) K/uL Immature Gran # (Auto) 0.01 (0.00-0.02) K/uL PT (9.0-12.0) Seconds INR (0.9-1.1) APTT (21.0-31.0) Seconds PTT Ratio D-Dimer (0-500) ug/L FEU Sodium (136-145) mmol/L Potassium (3.5-5.1) mmol/L Chloride (98-107) mmol/L Carbon Dioxide (21-32) mmol/L Anion Gap (3-11) BUN (7-18) mg/dl Creatinine (0.6-1.2) mg/dl Est Cr Clr Drug Dosing ml/min Est GFR ( Amer) Est GFR (Non-Af Amer) BUN/Creatinine Ratio (10-20) Glucose (70-99) mg/dl Lactate (0.4-2.0) mmol/L Calcium (8.5-10.1) mg/dl Magnesium (1.8-2.4) mg/dl Total Bilirubin (0.2-1) mg/dl AST (15-37) U/L ALT (12-78) U/L Alkaline Phosphatase (45-117) U/L Troponin I (0-0.045) ng/ml Total Protein (6.4-8.2) gm/dl Albumin (3.4-5.0) gm/dl Globulin (2.5-4.0) gm/dl Albumin/Globulin Ratio (0.9-2) Lipase (73-393) U/L Procalcitonin (0-0.5) ng/ml Urine Color Urine Appearance (Clear) Urine pH (4.5-7.5) Ur Specific Jack (1.000-1.030) Urine Protein (Negative) Urine Glucose (UA) (Negative) Urine Ketones (Negative) Urine Blood (Negative) Urine Nitrite (Negative) Urine Bilirubin (Negative) Urine Urobilinogen (Negative) Ur Leukocyte Esterase (Negative) Urine WBC (Auto) (0-5) /hpf Urine RBC (Auto) (0-4) /hpf U Hyaline Cast (Auto) (0-5) /lpf U Epithel Cells (Auto) (0-5) /lpf Urine Bacteria (Auto) (Negative) COVID-19 [facility] SARS-[facility]-2, RNA, NAAT NEGATIVE (NEGATIVE) 04/16/20 04/16/20 04/16/20 Range/Units 19:32 19:32 19:32 WBC (4.8-10.8) K/uL RBC (4.2-5.4) M/uL Hgb (12.0-16.0) g/dL Hct (37-47) % MCV (80-100) fL MCH (25-34) pg MCHC (32-36) g/dL RDW Std Deviation (36.4-46.3) fL RDW Coeff of Natali (11.5-14.5) % Plt Count (130-400) K/uL MPV (7.4-10.4) fL Immature Gran % (Auto) % Neut % (Auto) % Lymph % (Auto) % Dodge % (Auto) % Eos % (Auto) % Baso % (Auto) % Neut # (Auto) (1.4-6.5) K/uL Lymph # (Auto) (1.2-3.4) K/uL Dodge # (Auto) (0.11-0.59) K/uL Eos # (Auto) (0-0.5) K/uL Baso # (Auto) (0-0.2) K/uL Immature Gran # (Auto) (0.00-0.02) K/uL PT 11.2 (9.0-12.0) Seconds INR 1.1 (0.9-1.1) APTT 29.4 (21.0-31.0) Seconds PTT Ratio 1.1 D-Dimer 290 (0-500) ug/L FEU Sodium 140 (136-145) mmol/L Potassium 3.0 L (3.5-5.1) mmol/L Chloride 104 (98-107) mmol/L Carbon Dioxide 25 (21-32) mmol/L Anion Gap 11.0 (3-11) BUN 12 (7-18) mg/dl Creatinine 0.93 (0.6-1.2) mg/dl Est Cr Clr Drug Dosing 73.7 ml/min Est GFR ( Amer) 78.0 Est GFR (Non-Af Amer) 67.3 BUN/Creatinine Ratio 12.8 (10-20) Glucose 141 H (70-99) mg/dl Lactate (0.4-2.0) mmol/L Calcium 10.5 H (8.5-10.1) mg/dl Magnesium 1.8 (1.8-2.4) mg/dl Total Bilirubin 0.5 (0.2-1) mg/dl AST 8 L (15-37) U/L ALT 16 (12-78) U/L Alkaline Phosphatase 117 (45-117) U/L Troponin I < 0.015 (0-0.045) ng/ml Total Protein 8.0 (6.4-8.2) gm/dl Albumin 4.3 (3.4-5.0) gm/dl Globulin 3.7 (2.5-4.0) gm/dl Albumin/Globulin Ratio 1.1 (0.9-2) Lipase 1729 H (73-393) U/L Procalcitonin < 0.05 (0-0.5) ng/ml Urine Color Urine Appearance (Clear) Urine pH (4.5-7.5) Ur Specific Jack (1.000-1.030) Urine Protein (Negative) Urine Glucose (UA) (Negative) Urine Ketones (Negative) Urine Blood (Negative) Urine Nitrite (Negative) Urine Bilirubin (Negative) Urine Urobilinogen (Negative) Ur Leukocyte Esterase (Negative) Urine WBC (Auto) (0-5) /hpf Urine RBC (Auto) (0-4) /hpf U Hyaline Cast (Auto) (0-5) /lpf U Epithel Cells (Auto) (0-5) /lpf Urine Bacteria (Auto) (Negative) COVID-19 Eval Order SARS-CoV-2, RNA, NAAT (NEGATIVE) 04/16/20 04/16/20 Range/Units 19:33 21:34 WBC (4.8-10.8) K/uL RBC (4.2-5.4) M/uL Hgb (12.0-16.0) g/dL Hct (37-47) % MCV (80-100) fL MCH (25-34) pg MCHC (32-36) g/dL RDW Std Deviation (36.4-46.3) fL RDW Coeff of Natali (11.5-14.5) % Plt Count (130-400) K/uL MPV (7.4-10.4) fL Immature Gran % (Auto) % Neut % (Auto) % Lymph % (Auto) % Dodge % (Auto) % Eos % (Auto) % Baso % (Auto) % Neut # (Auto) (1.4-6.5) K/uL Lymph # (Auto) (1.2-3.4) K/uL Dodge # (Auto) (0.11-0.59) K/uL Eos # (Auto) (0-0.5) K/uL Baso # (Auto) (0-0.2) K/uL Immature Gran # (Auto) (0.00-0.02) K/uL PT (9.0-12.0) Seconds INR (0.9-1.1) APTT (21.0-31.0) Seconds PTT Ratio D-Dimer (0-500) ug/L FEU Sodium (136-145) mmol/L Potassium (3.5-5.1) mmol/L Chloride (98-107) mmol/L Carbon Dioxide (21-32) mmol/L Anion Gap (3-11) BUN (7-18) mg/dl Creatinine (0.6-1.2) mg/dl Est Cr Clr Drug Dosing ml/min Est GFR ( Amer) Est GFR (Non-Af Amer) BUN/Creatinine Ratio (10-20) Glucose (70-99) mg/dl Lactate 1.8 (0.4-2.0) mmol/L Calcium (8.5-10.1) mg/dl Magnesium (1.8-2.4) mg/dl Total Bilirubin (0.2-1) mg/dl AST (15-37) U/L ALT (12-78) U/L Alkaline Phosphatase (45-117) U/L Troponin I (0-0.045) ng/ml Total Protein (6.4-8.2) gm/dl Albumin (3.4-5.0) gm/dl Globulin (2.5-4.0) gm/dl Albumin/Globulin Ratio (0.9-2) Lipase (73-393) U/L Procalcitonin (0-0.5) ng/ml Urine Color Yellow Urine Appearance Clear (Clear) Urine pH 5.5 (4.5-7.5) Ur Specific Jack 1.017 (1.000-1.030) Urine Protein 1+ H (Negative) Urine Glucose (UA) Negative (Negative) Urine Ketones 1+ H (Negative) Urine Blood Negative (Negative) Urine Nitrite Negative (Negative) Urine Bilirubin Negative (Negative) Urine Urobilinogen Negative (Negative) Ur Leukocyte Esterase Trace H (Negative) Urine WBC (Auto) 10-30 H (0-5) /hpf Urine RBC (Auto) 0-4 (0-4) /hpf U Hyaline Cast (Auto) 10-30 H (0-5) /lpf U Epithel Cells (Auto) >30 H (0-5) /lpf Urine Bacteria (Auto) Negative (Negative) COVID-19 Eval Order SARS-CoV-2, RNA, NAAT (NEGATIVE) Diagnostic Findings XR chest 1V portable CLINICAL HISTORY: SEPSIS COMPARISON STUDY: June 2017 FINDINGS: There are postsurgical changes of midline sternotomy. There is marked elevation/eventration left hemidiaphragm. There is no failure. There is no focal pulmonary consolidation. There are no pleural effusions.[ IMPRESSION: 1. Persistent marked elevation/eventration left hemidiaphragm. 2. No acute findings. ACT 112: Negative or not required by law. Electronically signed by: Miguel Angel James M.D. 04/16/2020 8:10 PM Dictated: 04/16/202008Transcribed: 04/16/202008 ECG Additional Comments: The study shows NSR at 99bpm, [place] short at 106, QRS=84, KDn=532, no acute ischemic changes, nonspecific ST changes in anterior leads unchanged from prior study PG Care Time/CCT Total # of Minutes Spent Total Time Spent with Patient: Total time spent is greater than 50% in coordination of care (as documented) at patient's floor/unit and/or counseling patient: Coding Level of Care Code 57320 Initial Inpt Care Lvl 3 Diagnoses Pancreatitis, acute K85.90 Acute pancreatitis complication: no infection or necrosis Pancreatitis type: unspecified pancreatitis type Edema of left lower extremity R60.0 Hyperlipidemia E78.5 Hyperlipidemia type: unspecified Hypertension I10 Hypertension type: essential hypertension Diabetes E11.9 Diabetes mellitus complication status: without complication Diabetes mellitus group home insulin use: without buttermaker use Diabetes mellitus type: type 2 Insomnia G47.00 Insomnia type: unspecified Depression with anxiety F41.8 Tremor R25.1 (1) Insomnia Insomnia type: unspecified Qualified Code(s): G47.00 - Insomnia, unspecified (2) Diabetes Diabetes mellitus complication status: without complication Diabetes mellitus group home insulin use: without buttermaker use Diabetes mellitus type: type 2 Qualified Code(s): E11.9 - Type 2 diabetes mellitus without complications (3) Hyperlipidemia Hyperlipidemia type: unspecified Qualified Code(s): E78.5 - Hyperlipidemia, unspecified (4) Hypertension Hypertension type: essential hypertension Qualified Code(s): I10 - Essential (primary) hypertension (5) Pancreatitis, acute Acute pancreatitis complication: no infection or necrosis Pancreatitis type: unspecified pancreatitis type Qualified Code(s): K85.90 - Acute pancreatitis without necrosis or infection, unspecified
[2020-04-17] MEDS ORDERED: DOCUSATE SODIUM 100 MG CAP PO PRN (00:37)
[2020-04-17 00:54] LABS: Phosphorus 3.8 mg/dl (2.5-4.9)
[2020-04-17] MEDS: SODIUM CHLORIDE 0.9% 1000ML 1,000 ML IV SCH ×2 (01:14→07:16)
[2020-04-17] MEDS: MoRPHine SULFATE 2 MG/ML CARP IV PRN ×7 (01:15→22:20)
[2020-04-17] MEDS: traZODone HCL 50 MG TAB PO SCH ×2 (01:59→20:23)
[2020-04-17 05:25] LABS: Basophils # (auto) 0.02 K/uL (0-0.2); Basophils % (auto) 0.3 %; Eosinophils # (auto) 0.12 K/uL (0-0.5); Eosinophils % (auto) 2.1 %; Hemoglobin 12.9 g/dL (12.0-16.0); Immature Granulocytes # (auto) 0.01 K/uL (0.00-0.02); Immature Granulocytes % (auto) 0.2 %; Mean Corpuscular Hgb Conc 33.9 g/dL (32-36); Mean Corpuscular Volume 85.4 fL (80-100); Mean Platelet Volume 10.7 fL (7.4-10.4); Monocytes # (auto) 0.59 K/uL (0.11-0.59); Monocytes % (auto) 10.2 %; Neutrophils # (auto) 3.54 K/uL (1.4-6.5); Neutrophils % (auto) 61.2 %; Platelet Count 213 K/uL (130-400); RDW Coefficient of Variation 13.5 % (11.5-14.5); RDW Standard Deviation 41.5 fL (36.4-46.3); Red Blood Count 4.45 M/uL (4.2-5.4); White Blood Count 5.78 K/uL (4.8-10.8)
[2020-04-17 05:55] LABS: Albumin Level 3.8 gm/dl (3.4-5.0); BUN Creatinine Ratio 11.6 (10-20); Bilirubin Direct 0.5 mg/dl (0-0.2); Calcium 8.7 mg/dl (8.5-10.1); Creatinine Clr Calc Pharmacy 88.7 ml/min; Est GFR (African American) 96.4; Est GFR (Non-African American) 83.2; Potassium 3.4 mmol/L (3.5-5.1)
[2020-04-17 05:58] LABS: Bilirubin,Total 0.9 mg/dl (0.2-1); Total Protein 6.8 gm/dl (6.4-8.2)
--- NOTE | 2020-04-17 07:13 | Ultrasound Report ---
ULTRASOUND LEFT LOWER EXTREMITY VENOUS CLINICAL HISTORY: Left leg pain. COMPARISON STUDY: No priors. TECHNIQUE: Real-time, grayscale, and color Doppler sonography of the deep veins of the left lower ext remity was performed from the inguinal crease to the calf. Compression and augmentation were utilized . FINDINGS: There is no sonographic evidence of deep venous thrombosis identified in the left lower ext remity. The common femoral, superficial femoral, and popliteal veins are patent and normally compress ible. The greater saphenous vein and the profunda femoris vein at the junction with the common femora l vein are clear. The visualized calf veins are patent. IMPRESSION: There is no sonographic evidence of deep venous thrombosis identified in the left lower e xtremity. ACT 112: Negative or not required by law. Electronically signed by: Ishan Holt M.D. 04/17/2020 7:11 AM
[2020-04-17] MEDS: RIZATRIPTAN BENZOATE 10 MG TAB PO PRN ×3 (07:15→18:10)
--- NOTE | 2020-04-17 07:29 | CT Scan Report ---
HEAD CT NONCONTRAST CT DOSE: 614.27 mGy.cm HISTORY: Headache TECHNIQUE: Multiaxial CT images of the head were performed without the use of intravenous contrast. A utomated exposure control was utilized for this study. A dose lowering technique was utilized adheri ng to the principles of ALARA. Comparison: Head CT 11/09/2012. Findings: Moderate mucosal thickening seen within the floor the right maxillary sinus. The mastoid ai r cells are clear. The calvarium and skull base are intact. The ventricles and sulci are within calderon l limits. There is no mass, hematoma, midline shift, or acute infarct. Impression: No acute intracranial abnormality. Chronic right maxillary sinus disease. ACT 112: Negative or not required by law. Electronically signed by: Joshua Jacobo M.D. 04/17/2020 7:27 AM
--- NOTE | 2020-04-17 07:31 | CT Scan Report ---
CT SCAN OF THE ABDOMEN AND PELVIS WITH IV CONTRAST CLINICAL HISTORY: Vomiting. COMPARISON STUDY: Abdominal CT dated 08/08/2015. TECHNIQUE: Following the IV administration of 93 cc of Optiray 320, CT scan of the abdomen and pelvi s is performed from the lung bases to the proximal femora. Images are reviewed in the axial, sagittal , and coronal planes. IV contrast was administered without complication. A dose lowering technique wa s utilized adhering to the principles of ALARA. CT DOSE: 1236.90 mGy.cm FINDINGS: Lung bases: The patient is status post midline sternotomy. The heart is normal in size and without pe ricardial effusion. A calcified granuloma is seen in the right upper lobe. There is chronic elevation of the left hemidiaphragm with associated left basilar atelectasis. No airspace consolidation or ple ural effusion is identified. A small hiatal hernia is noted. Liver: The contrast-enhanced liver is normal in size, contour, and attenuation. There is no intrahepa tic biliary ductal dilatation. The hepatic veins and portal veins are patent. A 3.8 cm hemangioma in the right lobe seen on image #143 is unchanged from 2016. A 1.3 cm hypodensity in the left lobe on im age #163 also likely represents a hemangioma and is also unchanged. Gallbladder: Surgically absent. Spleen: Normal in size and attenuation. A 3.1 cm splenic hypodensity seen on image #121 is unchanged from 2016 and statistically of doubtful significance. Pancreas: There is moderate atrophy of the pancreas. There is peripancreatic inflammation and trace f luid suggesting acute pancreatitis. The gland enhances homogeneously. No organized peripancreatic flu id collection is identified. Adrenal glands: Unremarkable. Kidneys: The contrast enhanced kidneys are normal in size and without hydronephrosis. The kidneys enh ance symmetrically. A small cluster of nonobstructing calculi in the left lower pole measure up to 7 mm. No right renal calculi are seen. Scattered subcentimeter cortical hypodensities likely represent cysts but are too small for definitive characterization. Abdominal vasculature: The abdominal aorta is normal in course and caliber noting mild atheroscleroti c calcification. Bowel: There is no bowel obstruction. The appendix is well-visualized and normal. Peritoneum: There is no intraperitoneal free air or abdominal ascites. There is a small fat-containin g umbilical hernia. Lymphadenopathy: None. Pelvic viscera: The bladder is decompressed and grossly unremarkable. The uterus and adnexa are calderon l as imaged. Skeletal structures: The skeletal structures are osteopenic. Mild spondylotic changes noted in lumbar spine. There is degenerative sclerosis of the sacroiliac joints. No lytic or blastic lesions are see n. IMPRESSION: 1. Findings are consistent with acute pancreatitis. Correlate with serum amylase/lipase levels. 2. The gland enhances homogeneously. No organized peripancreatic fluid collection is identified. 3. Left-sided nephrolithiasis. 4. Additional findings as above. ACT 112: Negative or not required by law. Electronically signed by: Ishan Holt M.D. 04/17/2020 7:30 AM
[2020-04-17] MEDS: ONDANSETRON INJ 2 MG/ML 2 ML VIAL IV PRN (07:50)
[2020-04-17] MEDS: ATORVASTATIN 40 MG TAB PO SCH (08:50)
[2020-04-17] MEDS: OXYBUTYNIN CHLORIDE XL 5 MG TABCR PO SCH (08:50)
[2020-04-17] MEDS: VENLAFAXINE HCL XR 150 MG CAPXR PO SCH (08:50)
[2020-04-17] MEDS: GABAPENTIN 800 MG TAB PO SCH ×3 (08:50→20:24)
[2020-04-17] MEDS: VENLAFAXINE HCL XR 75 MG CAPXR PO SCH (08:50)
[2020-04-17] MEDS: LOSARTAN POTASSIUM 25 MG TAB PO SCH (08:50)
--- NOTE | 2020-04-17 09:48 | Hospitalist Progress Note ---
Date of Service April 17, 2020 Assessment & Plan Admission and Anticipated Discharge Date Admission Date: April 16, 2020 60 yo female presenting with acute pancreatitis. Mid-abdominal tenderness with radiation to her back, elevated lipase of 1,729. CT of the Abdomen performed (awaiting report from [facility] rad.), appears to have some edema and stranding around the pancreas. No history of EtOH use, patient is s/p cholecystectomy. Acute pancreatitis -initial Ca elevated but iCal was normal, TAG nl. -liver enzymes initially nl., AM enzymes elevated at AST - 571 ALT - 329. Alp elevated at 157 and elevated lipase at 1729 given these labs were initially concerned for obstruction - GI consulted -MRCP negative -NPO -NSS at 250mL/hr initially transitioned to 200mL/hr in the afternoon -Zofran 4mg IV q6H as needed -Morphine 2mg IV q2H as needed Edema of left lower extremity: Patient's LLE appears slightly swollen in comparison with RLE. Nontender, Uli's sign negative. -Check venous doppler - negative Hyperlipidemia: Chronic -Check lipid panel as above -Continue Atorvastatin 40mg po daily Hypertension: Chronic. Mildly elevated -Continue Losartan 25mg po daily -Continue Propranolol as below -Continue to monitor BP Diabetes: Chronic. Well controlled. Last LdhX2O=1.2 on 03/23/20. Patient's HgBA1C has been below 6.5 since 11/2013. -Hold Metformin -Monitor blood sugars - 121 this AM. No insulin coverage at this time Insomnia: Chronic. Stable. Patient requests her medication to sleep -Continue Trazodone 50mg po qHS -Continue Chlorpromazine qHS Depression with anxiety: Chronic. Stable -Continue Venlafaxine -Continue Buspirone Tremor: -Continue Propranolol 160mg po daily Ppx - SCDs Code - Full Dispo - Admit to medical with telemetry Topamax daily for migraine prophylaxis Supervising Physician Co-Signing Physician Notes I also saw the patient and confirmed olivarez portions of the history and physical examination. I also discussed the case with gastroenterology. I agree with the impression and plan as noted in the resident documentation. 60-year-old female admitted with acute pancreatitis. Upon exam this morning, her pain and nausea/vomiting are under good control. She reports remote history of cholecystectomy. No alcohol intake. No previous history of pancreatitis. Exam 146/79, 89, 16, 36.7, 93% (room air). No acute distress. Heart regular. Lungs clear. Very mild tenderness in the epigastric region, although I have to palpate fairly heavily to elicit discomfort. Data AST 570, ALT 330, alkaline phosphatase 157. Total bilirubin 0.9, direct 0.5. Lipase 1730 Assessment and plan Acute pancreatitis Change normal saline to lactated Ringer's, 250 cc/h Medications for pain and emesis, well-controlled at present MRCP Consult gastroenterology Trend enzymes and LFTs. Subjective Yaquelin Trinh was doing okay today. She had improved pain currently / this morning w/ last pain medication half an hour ago. Some nausea that pt. associates with a migraine. Her last bowel movement was yesterday. She has not drank any alcoholic drinks in years and was never a heavy drinker. Review of Systems Review of Systems: constitutional: denies fevers, chills cardiac: denies chest pain, palpitations GI: admits some nausea that she relates to her migraine, LBM yesterday pulm.: denies cough, shortness of breath : denies urinary symptoms Physical Exam Constitutional: WD/WN, vitals as above Eyes: PERRL, conjunctivae normal, anicteric sclerae ENMT: external ear and nose normal, oropharynx normal Neck: normal visual inspection Respiratory: normal respiratory effort Cardiovascular: RRR, no murmur, no edema Gastrointestinal (Abdomen): + bowel sounds, soft, tender to palpation diffusely Results & Data Results & Data ([facility]) Vital Signs (Past 12 Hours) Vital Signs Temp Pulse Pulse Resp BP Pulse Ox 04/17/20 07:50 36.6 C 106 H 20 155/95 H 90 04/17/20 07:28 97 H 04/17/20 04:01 37.2 C 105 H 24 116/74 92 04/17/20 00:37 36.8 C 102 H 101 H 20 162/87 H 94 04/17/20 00:05 97 H 18 166/95 H 92 04/16/20 22:52 98 H 18 149/113 H 96 CBC Results Results Complete Blood Count Results: RBC 4.45 M/uL (4.2-5.4) 04/17/20 WBC 5.78 K/uL (4.8-10.8) 04/17/20 Hgb 12.9 g/dL (12.0-16.0) 04/17/20 Hct 38.0 % (37-47) 04/17/20 Plt Count 213 K/uL (130-400) 04/17/20 Chemistry ([facility]) Results [facility] Results: Sodium 143 mmol/L (136-145) 04/17/20 Potassium 3.4 mmol/L (3.5-5.1) L 04/17/20 Chloride 112 mmol/L (98-107) H 04/17/20 BUN 9 mg/dl (7-18) 04/17/20 Creatinine 0.78 mg/dl (0.6-1.2) 04/17/20 Glucose 121 mg/dl (70-99) H 04/17/20 Resident Activity Tracking Resident Involvement: Resident Care Provided Care Provided: Adult Hospital Medicine
[2020-04-17] MEDS: LACTATED RINGER'S 1,000 ML IV SCH ×3 (11:51→22:18)
--- NOTE | 2020-04-17 13:48 | Gastrointestinal Consultation ---
Date of Consultation April 17, 2020 Assessment & Plan (1) Acute pancreatitis: (2) Elevated liver enzymes: 60 yo female admitted with acute pancreatitis. Elevation in the liver profile following initial normal raises question of passing sludge/stones/biliary obstruction. Initial imaging without biliary dilation. - MRCP to be done today. - Follow LFTs daily - NPO, IVF hydration. - PRN analgesia and anti-emetics. History of Present Illness Reason for Consultation: elevated LFTS, pancreatitis Requesting Physician: Dr. Dias Attending Physician: Rohan Dias, History of Present Illness 60 yo female with a history of migraine headaches followed by neurology, DM, and HTN as well as a history of cholecystectomy in the past for symptomatic gallstone disease. She presented to the ER last evening with complaints of worsening upper and diffuse abdominal pain. Labs in the ER and CT were significant for acute pancreatitis. She denies any history of ETOH. No new medications. LFTs in the ER were normal. Labs this morning are significant for AST of 570, ALT of 330, AP of 157, and total bilirubin of 0.9 with direct of 0.5. Lipase was 1730. No family history of pancreatitis or lipid/TG dyscrasia. Being treated at present with bowel rest, IVF hydration and PRN analgesia and anti-emetics. CT showed changes of acute pancreatitis, no biliary dilation, surgically absent GB, and stable hemangiomas in the liver. Allergies Allergy/AdvReac Type Severity Reaction Status Date / Time Bactrim Allergy Intermediate itching, Verified 06/01/17 10:40 chest tightness latex Allergy Intermediate rash Verified 04/17/20 00:00 sulfamethoxazole Allergy Intermediate itching, Verified 04/17/20 00:00 chest tightness trimethoprim Allergy Intermediate itching, Verified 04/17/20 00:00 chest tightness adhesive Allergy Unknown ITCHY SKIN Verified 04/17/20 00:00 doxycycline Allergy nausea and Verified 04/17/20 00:00 vomiting clindamycin AdvReac Severe Diarrhea Verified 04/17/20 00:00 Home Medications Medication Instructions Recorded Confirmed Type venlafaxine 75 mg PO QAM 07/20/18 04/16/20 History multivitamin 1 tab PO DAILY 10/26/18 04/16/20 History ferrous sulfate 325 mg (65 mg 325 mg PO BID #60 tab 12/01/18 04/16/20 Rx iron) tablet,delayed release venlafaxine 150 mg 150 mg PO QAM #30 cap 01/24/19 04/16/20 History capsule,extended release 24 hr atorvastatin 40 mg tablet 40 mg PO DAILY #30 tab 06/20/19 04/16/20 Rx losartan 25 mg tablet 25 mg PO DAILY #30 tab 10/13/19 04/16/20 Rx ergocalciferol (vitamin D2) 1,250 50,000 units PO WK #12 cap 11/14/19 04/16/20 Rx mcg (50,000 unit) capsule oxybutynin chloride 10 mg 10 mg PO DAILY #30 tab 11/28/19 04/16/20 Rx tablet,extended release 24 hr ibuprofen 600 mg tablet 600 mg PO TID PRN #90 tab 12/27/19 04/16/20 Rx clonazepam 0.5 mg tablet 0.5 mg PO .COMPLEX PRN tab 01/04/20 04/16/20 History galcanezumab-gnlm 120 mg/mL 120 mg SQ MONTHLY 30 Days #1 ml 01/04/20 04/16/20 Rx subcutaneous pen injector promethazine 25 mg tablet 25 mg PO BID PRN #60 tab 01/04/20 04/16/20 Rx propranolol 160 mg capsule,24 160 mg PO HS 30 Days #30 cap 01/04/20 04/16/20 Rx hr,extended release rizatriptan 10 mg tablet 10 mg PO .COMPLEX PRN 90 Days #27 01/04/20 04/16/20 Rx tab tizanidine 4 mg tablet 4 mg PO QID PRN #90 tab 01/04/20 04/16/20 Rx sumatriptan succinate 6 mg/0.5 mL 6 mg SUBCUT .COMPLEX PRN #1 ml 03/18/20 04/16/20 Rx subcutaneous pen injector gabapentin 800 mg tablet 800 mg PO TID #90 tab 04/10/20 04/16/20 Rx topiramate 100 mg capsule 100 mg PO DAILY 90 Days #90 ea 04/10/20 04/16/20 Rx sprinkle,extended release 24 hr buspirone 30 mg PO HS 04/16/20 04/16/20 History chlorpromazine 10 mg PO HS 04/16/20 04/16/20 History trazodone 50 mg PO HS 12/29/20 12/29/20 History Patient History Medical History Depression (09/09/12) Diabetes History of uterine fibroid Hyperlipidemia Hypertension Migraine (09/09/12) Panic attack (09/09/12) PMB (postmenopausal bleeding) Surgical History History 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 History of laparoscopic cholecystectomy S/P surgical removal of pilonidal cyst Family History Sister Rheumatoid arthritis Steatorrhea Mother Hypertension Father Parkinson disease Denies family history of Ovarian cancer Prostate cancer Myocardial infarction Breast cancer Colorectal cancer Social History Smoking Status: Former smoker Age Started Using Tobacco: 21; Age Quit Using Tobacco: 58; packs per day: 1; Years Smoked: 37; Cigarettes Per Day: 5-8; Number of Years Since Quit: 1; Second Hand Exposure: No; Hx Alcohol Use: No (denies) Hx Substance Use: No Preferred Language: Occitan Visual Impairment: No Limitations Hearing Ability: Normal marital status: Current Living Situation: Family Current Living Situation Comment: lives with sister and family current occupational status: disabled Feels Safe at Home: Yes Childhood Exposure to Second-Hand Smoke: No Dental Care, Regularly: No Physical Activity Frequency: 3-4 Times per Week Seatbelt Use: always Sunscreen Use: Yes Assistive Devices: None Review of Systems Review of Systems: All systems reviewed & are unremarkable except as noted in HPI & below + headache Physical Exam Constitutional: WD/WN, vitals as above Eyes: PERRL, conjunctivae normal, anicteric sclerae Neck: trachea midline, no thyromegaly Respiratory: normal respiratory effort, lungs clear to auscultation Cardiovascular: RRR, no murmur, no edema Gastrointestinal (Abdomen): Inspection/Auscultation: normal bowel sounds Percussion/Palpation: + abdomen tender Musculoskeletal: no cyanosis or clubbing, extremities motor strength 5/5 Neurologic: CN's II-XI intact bilaterally Results & Data ([facility]) Vital Signs (Past 12 Hours) Vital Signs Temp Pulse Pulse Pulse Resp BP Pulse Ox 04/17/20 11:23 36.7 C 92 H 16 146/79 H 93 04/17/20 07:50 36.6 C 106 H 20 155/95 H 90 04/17/20 07:28 97 H 04/17/20 04:01 37.2 C 105 H 24 116/74 92 Diagnostic Findings (1) Acute pancreatitis Acute pancreatitis complication: no infection or necrosis Pancreatitis type: unspecified pancreatitis type Qualified Code(s): K85.90 - Acute pancreatitis without necrosis or infection, unspecified
--- NOTE | 2020-04-17 14:39 | Electrocardiogram Report ---
Test Reason : Blood Pressure : / mmHG Vent. Rate : 099 BPM Atrial Rate : 099 BPM P-R Int : 106 ms QRS Dur : 084 ms QT Int : 362 ms P-R-T Axes : 062 010 040 degrees QTc Int : 464 ms Sinus rhythm with short [place] Possible Left atrial enlargement Nonspecific ST abnormality Abnormal ECG When compared with ECG of 18-DEC-2016 13:41, No significant change was found Confirmed by Wyatt Cueto ([id number]) on 04/17/2020 2:38:37 PM Referred By: REFERRED SELF Confirmed By:Chavez Cueto
--- NOTE | 2020-04-17 15:34 | Magnetic Resonance Report ---
MRCP CLINICAL HISTORY: Pancreatitis. COMPARISON STUDY: Abdominal CT dated 04/16/2020. TECHNIQUE: Abdominal MRCP is performed utilizing various T2-weighted sequences in the axial and coron al planes. IV contrast was not administered for this examination. 3-D reformats are created and asses sed. FINDINGS: The gallbladder is surgically absent. There is no intra or extrahepatic biliary ductal dilatation. Th e common bile duct measures up to 6 mm diameter. No intraluminal filling defects are identified to sheikh ggest choledocholithiasis. The pancreatic duct is top normal in caliber measuring up to 3.5 mm. There is focal discontinuity of the pancreatic duct in the region of the pancreatic head, best appreciated on the 3-D reformatted images. The pancreas is moderately atrophic. Peripancreatic stranding and fluid is consistent with acute panc reatitis. No organized peripancreatic fluid collection is identified. The liver is normal in size. Tw o hepatic lesions are unchanged and likely represent hemangiomas. The largest in the right lobe measu res up to 3.5 cm. An indeterminant lesion in the spleen measuring 3.4 cm also unchanged. The abdomina l aorta is normal in caliber. The kidneys are normal in size and without hydronephrosis. No bony abno rmality is identified. There is a small hiatal hernia and elevation of the left hemidiaphragm. IMPRESSION: 1. Status post cholecystectomy. 2. There is no intra or extrahepatic biliary ductal dilatation. No choledocholithiasis is seen. 3. There is prominence of the upstream pancreatic duct with focal discontinuity of the proximal duct at the level of the pancreatic head. This is of indeterminant significance and could represent strict ure. 4. There is evidence of acute pancreatitis. 5. Additional findings as above. Dictated: 04/17/2020 2:32 PM Transcribed: 04/17/2020 3:10 PM Kanchan [id number] TIAN_Maurone Electronically signed by: Ishan Holt M.D. 04/17/2020 3:32 PM
[2020-04-17] MEDS: busPIRone 15 MG TAB PO SCH (20:23)
[2020-04-17] MEDS: PROPRANOLOL HCL LA 80 MG CAPCR PO SCH (20:24)
[2020-04-17] MEDS: chlorproMAZINE HCL 10 MG TAB PO SCH (20:25)
--- NOTE | 2020-04-17 23:22 | Communication Note ---
Date of Service: April 17, 2020 Patient requesting sleep aid, unsure what she's on but on something at home. Checked PDMP and she is on clonazepam from her PCP will continue that while here.
[2020-04-17] MEDS: clonazePAM 0.5 MG TAB PO PRN (23:52)
[2020-04-18] MEDS ORDERED: Nursing to Pharmacy Communication SCH (04:00)
[2020-04-18] MEDS: LACTATED RINGER'S 1,000 ML IV SCH ×3 (04:20→21:35)
[2020-04-18] MEDS: MoRPHine SULFATE 2 MG/ML CARP IV PRN ×4 (04:22→18:20)
[2020-04-18 06:59] LABS: Basophils # (auto) 0.02 K/uL (0-0.2); Basophils % (auto) 0.3 %; Eosinophils # (auto) 0.16 K/uL (0-0.5); Eosinophils % (auto) 2.8 %; Hematocrit (blood only) 34.9 % (37-47); Hemoglobin 11.3 g/dL (12.0-16.0); Lymphocytes # (auto) 1.02 K/uL (1.2-3.4); Lymphocytes % (auto) 17.8 %; Mean Corpuscular Hemoglobin 28.3 pg (25-34); Mean Corpuscular Hgb Conc 32.4 g/dL (32-36); Mean Corpuscular Volume 87.3 fL (80-100); Mean Platelet Volume 10.7 fL (7.4-10.4); Monocytes # (auto) 0.39 K/uL (0.11-0.59); Monocytes % (auto) 6.8 %; Neutrophils # (auto) 4.14 K/uL (1.4-6.5); Neutrophils % (auto) 72.3 %; Platelet Count 157 K/uL (130-400); RDW Coefficient of Variation 13.5 % (11.5-14.5); RDW Standard Deviation 43.4 fL (36.4-46.3); White Blood Count 5.73 K/uL (4.8-10.8)
[2020-04-18 07:26] LABS: Albumin Level 3.2 gm/dl (3.4-5.0); BUN Creatinine Ratio 8.9 (10-20); Calcium 8.3 mg/dl (8.5-10.1); Est GFR (African American) 117.6; Est GFR (Non-African American) 101.5; Potassium 3.3 mmol/L (3.5-5.1)
[2020-04-18 07:29] LABS: Albumin Globulin Ratio 1.1 (0.9-2); Bilirubin,Total 0.4 mg/dl (0.2-1); Globulin 2.8 gm/dl (2.5-4.0)
[2020-04-18] MEDS: POTASSIUM CHLORIDE / WTR 10 MEQ/100 ML PLCT IV SCH ×2 (07:52→09:13)
[2020-04-18] MEDS: LOSARTAN POTASSIUM 25 MG TAB PO SCH (08:01)
[2020-04-18] MEDS: GABAPENTIN 800 MG TAB PO SCH ×3 (08:01→20:16)
[2020-04-18] MEDS: VENLAFAXINE HCL XR 150 MG CAPXR PO SCH (08:02)
[2020-04-18] MEDS: VENLAFAXINE HCL XR 75 MG CAPXR PO SCH (08:02)
[2020-04-18] MEDS: ATORVASTATIN 40 MG TAB PO SCH (08:02)
[2020-04-18] MEDS: OXYBUTYNIN CHLORIDE XL 5 MG TABCR PO SCH (08:03)
[2020-04-18] MEDS: RIZATRIPTAN BENZOATE 10 MG TAB PO PRN ×2 (09:25→19:36)
[2020-04-18] MEDS: ONDANSETRON INJ 2 MG/ML 2 ML VIAL IV PRN (09:28)
--- NOTE | 2020-04-18 09:47 | Communication Note ---
Date of Service: April 18, 2020 Communication note for call coverage for [employer] GI: MRCP was reviewed. There was prominence of the upstream pancreatic duct with focal discontinuity of the proximal duct at the level of the pancreatic head. This is of indeterminant significance and could represent stricture. This was discussed with Dr. Hill. Patient can be scheduled for a non-emergent outpatient EUS/ERCP for further evaluation. Attending Addendum: Possible stricture vs. Pancreas divisum on MRCP. continue conservative treatment for pancreatitis, LFTs improving, advance diet as tolerated once symptoms are improving. Discussed with Dr. Hill, she would benefit from EUS/ERCP as an outpatient and can follow up with him. Michael Engel MD Gastroenterology
--- NOTE | 2020-04-18 16:50 | Hospitalist Progress Note ---
Date of Service April 18, 2020 Assessment & Plan Admission and Anticipated Discharge Date Admission Date: April 16, 2020 60 yo female presenting with acute pancreatitis. Mid-abdominal tenderness with radiation to her back, elevated lipase of 1,729. CT of the Abdomen performed w/ findings consistent w/ acute pancreatitis, w/ some edema and stranding around the pancreas. No history of EtOH use, patient is s/p cholecystectomy. Acute pancreatitis -initial Ca elevated but iCal normal, TAG nl. -liver enzymes initially nl., although enzymes elevated one day prior at AST - 571 ALT - 329. Alk phos elevated at 157 and elevated lipase at 1729 given these labs were initially concerned for obstruction - liver labs have improved including AST, ALT and alk phos - this appears to be an obstructive picture despite the patient having a surgically absent gallbladder - GI consulted -NPO, will advance diet as tolerated in the AM -NSS at 250mL/hr initially transitioned to 200mL/hr and now at 125 mL/hr LR w/ approx. 3L given today, lungs clear this afternoon -Zofran 4mg IV q6H as needed -Morphine 2mg IV q2H as needed -MRCP negative for cholecystitis and choledocholithiasis but did show concern for pancreatic duct stricture - will need outpatient ERCP w/ EUS Edema of left lower extremity: Patient's LLE appears slightly swollen in comparison with RLE. Nontender, Uli's sign negative. -venous doppler - negative Hyperlipidemia: Chronic -Check lipid panel as above -Continue Atorvastatin 40mg po daily Hypertension: - chronic, acceptable level today -Continue Losartan 25mg po daily -Continue Propranolol as below -Continue to monitor BP Diabetes: Chronic. Well controlled. Last CoaI1F=3.2 on 03/23/20. Patient's HgBA1C has been below 6.5 since 11/2013. -Hold Metformin -Monitor blood sugars - 121 this AM. No insulin coverage at this time Insomnia: Chronic. Stable. Patient requests her medication to sleep -Continue Trazodone 50mg po qHS -Continue Chlorpromazine qHS Depression with anxiety: Chronic. Stable -Continue Venlafaxine -Continue Buspirone Tremor: -Continue Propranolol 160mg po daily Ppx - SCDs Code - Full Dispo - medical with telemetry Topamax daily for migraine prophylaxis Supervising Physician Co-Signing Physician Notes I also saw the patient and confirmed olivarez portions of the history and physical examination. I also discussed the case with gastroenterology. I agree with the impression and plan as noted in the resident documentation. Her pain this morning is a 4-5/10. She is somewhat hungry although hesitant to advance given her remaining discomfort. Exam 130/83, 58, 19, 36.7, 95% on room air No acute distress. Heart regular. Lungs clear. Very mild tenderness in the epigastric region. Data ALT 210, AST 118, alkaline phosphatase 134 Total bilirubin 0.4 Assessment and plan Acute pancreatitis Generally improving Decrease rate of IV fluids Gastroenterology input appreciated Consider trial of clears later today should she continue to improve Subjective Yaquelin Trinh was doing okay today. She still has abdominal pain and intermittent nausea. Her pain was 5/10 in the morning and 7/10 when we saw her again in the afternoon. She was doing well otherwise and was feeling hungry. Review of Systems Review of Systems: Constitutional: denies fevers, chills cardiac: denies chest pain, palpitations GI: admits some nausea, admits abdominal pain Pulm.: denies cough, shortness of breath : denies urinary symptoms Physical Exam Physical Exam: Constitutional WD/WN, vitals as above Eyes PERRL, conjunctivae normal, anicteric sclerae ENMT external ear and nose normal, oropharynx normal Neck normal visual inspection Respiratory normal respiratory effort Cardiovascular RRR, no murmur, no edema Gastrointestinal (Abdomen) + bowel sounds, soft, tender to palpation diffusely Results & Data Results & Data ([facility]) Vital Signs (Past 12 Hours) Vital Signs Temp Pulse Pulse Resp BP Pulse Ox 04/18/20 11:00 37.2 C 67 18 133/78 96 04/18/20 08:00 36.6 C 68 18 149/87 H 96 04/18/20 07:00 59 L 04/18/20 05:05 37.3 C 64 16 129/74 91
[2020-04-18] MEDS: busPIRone 15 MG TAB PO SCH (20:14)
[2020-04-18] MEDS: traZODone HCL 50 MG TAB PO SCH (20:15)
[2020-04-18] MEDS: PROPRANOLOL HCL LA 80 MG CAPCR PO SCH (20:15)
[2020-04-18] MEDS: HEPARIN SOD 5,000 UNIT/0.5 ML VIAL SQ SCH (20:15)
[2020-04-18] MEDS: chlorproMAZINE HCL 10 MG TAB PO SCH (20:16)
[2020-04-19] MEDS ORDERED: HYDROmorphone INJ 1 MG/ML SYRINGE IV STA (00:04)
[2020-04-19] MEDS: LACTATED RINGER'S 1,000 ML IV SCH ×3 (05:35→16:59)
[2020-04-19 07:22] LABS: Basophils # (auto) 0.01 K/uL (0-0.2); Basophils % (auto) 0.2 %; Eosinophils # (auto) 0.12 K/uL (0-0.5); Eosinophils % (auto) 2.3 %; Hematocrit (blood only) 32.1 % (37-47); Hemoglobin 10.6 g/dL (12.0-16.0); Immature Granulocytes # (auto) 0.01 K/uL (0.00-0.02); Immature Granulocytes % (auto) 0.2 %; Lymphocytes # (auto) 1.03 K/uL (1.2-3.4); Lymphocytes % (auto) 20.1 %; Mean Corpuscular Hemoglobin 28.6 pg (25-34); Mean Corpuscular Volume 86.8 fL (80-100); Mean Platelet Volume 11.1 fL (7.4-10.4); Monocytes # (auto) 0.25 K/uL (0.11-0.59); Monocytes % (auto) 4.9 %; Neutrophils % (auto) 72.3 %; Platelet Count 151 K/uL (130-400); RDW Coefficient of Variation 13.2 % (11.5-14.5); RDW Standard Deviation 42.4 fL (36.4-46.3); White Blood Count 5.12 K/uL (4.8-10.8)
[2020-04-19 08:04] LABS: Albumin Globulin Ratio 1.1 (0.9-2); Albumin Level 2.9 gm/dl (3.4-5.0); BUN Creatinine Ratio 17.6 (10-20); Bilirubin,Total 0.4 mg/dl (0.2-1); Calcium 8.1 mg/dl (8.5-10.1); Est GFR (African American) 124.4; Est GFR (Non-African American) 107.4; Globulin 2.7 gm/dl (2.5-4.0); Potassium 3.3 mmol/L (3.5-5.1); Total Protein 5.6 gm/dl (6.4-8.2)
[2020-04-19] MEDS: LOSARTAN POTASSIUM 25 MG TAB PO SCH (08:37)
[2020-04-19] MEDS: OXYBUTYNIN CHLORIDE XL 5 MG TABCR PO SCH (08:37)
[2020-04-19] MEDS: GABAPENTIN 800 MG TAB PO SCH ×3 (08:37→20:09)
[2020-04-19] MEDS: ATORVASTATIN 40 MG TAB PO SCH (08:37)
[2020-04-19] MEDS: VENLAFAXINE HCL XR 150 MG CAPXR PO SCH (08:37)
[2020-04-19] MEDS: HEPARIN SOD 5,000 UNIT/0.5 ML VIAL SQ SCH ×2 (08:38→20:10)
[2020-04-19] MEDS: VENLAFAXINE HCL XR 75 MG CAPXR PO SCH (08:38)
[2020-04-19] MEDS ORDERED: HYDROmorphone INJ 0.5 MG/0.5 ML SYR IV STA (09:04)
[2020-04-19] MEDS: HYDROmorphone INJ 0.5 MG/0.5 ML SYR IV PRN ×3 (09:17→22:09)
[2020-04-19] MEDS: POTASSIUM CHLORIDE / WTR 10 MEQ/100 ML PLCT IV SCH ×3 (10:39→12:28)
[2020-04-19] MEDS: ACETAMINOPHEN 325 MG TAB PO PRN (12:41)
--- NOTE | 2020-04-19 16:58 | Hospitalist Progress Note ---
Date of Service April 19, 2020 Assessment & Plan Admission and Anticipated Discharge Date Admission Date: April 16, 2020 60 yo female presenting with acute pancreatitis. Mid-abdominal tenderness with radiation to her back, elevated lipase of 1,729. CT of the Abdomen performed w/ findings consistent w/ acute pancreatitis, w/ some edema and stranding around the pancreas. No history of EtOH use, patient w/ history of cholecystectomy. Acute pancreatitis - Triglycerides nl. - liver enzymes initially nl., although enzymes elevated one day prior at AST - 571 ALT - 329. Alk phos elevated at 157 have since improved. - this appears to be an obstructive picture despite the patient having a surgically absent gallbladder - GI consulted - advancing diet - NSS at 250mL/hr initially transitioned to 200mL/hr and now at 125 mL/hr LR w/ approx. 3L given today, lungs clear this afternoon - Zofran 4mg IV q6H as needed - Tylenol and Dilaudid PRN for pain control - MRCP negative for cholecystitis and choledocholithiasis but did show concern for pancreatic duct stricture - will need outpatient ERCP w/ EUS Edema of left lower extremity: Patient's LLE appears slightly swollen in comparison with RLE. Nontender, Uli's sign negative. -venous doppler - negative Hyperlipidemia: Chronic -Continue Atorvastatin 40mg po daily Hypertension: - chronic, acceptable level today -Continue Losartan 25mg po daily -Continue Propranolol as below -Continue to monitor BP Diabetes: Chronic. Well controlled. Last LkkL6A=0.2 on 03/23/20. Patient's HgBA1C has been below 6.5 since 11/2013. -Hold Metformin -Monitor blood sugars - 121 this AM. No insulin coverage at this time Insomnia: Chronic. Stable. Patient requests her medication to sleep -Continue Trazodone 50mg po qHS -Continue Chlorpromazine qHS Depression with anxiety: Chronic. Stable -Continue Venlafaxine -Continue Buspirone Tremor: -Continue Propranolol 160mg po daily Ppx - Heparin Code - Full Dispo - medical with telemetry Topamax daily for migraine prophylaxis Supervising Physician Co-Signing Physician Notes Patient seen and examined with PGY-2 Dr. Herring. Agree with history, exam findings, assessment and plan as described. In brief, 60 year old female with history of HLD, HTN, DM, essential tremor, depression and anxiety admitted with acute pancreatitis. Mild epigastric/RUQ pain today better with dilaudid compared to morphine. Wanting to try clears today. Vital signs and nursing notes reviewed. Well appearing and non-toxic on exam. RUQ tenderness. + bowel sounds. 1. Acute pancreatitis. She is s/p past chuckie. CT with peripancreatic fat stranding. Elevated LFTs in obstructive patterntrending down. Lipase on admission 1729. MRCP with focal area of discontinuity of the proximal pancreatic duct at the level of the pancreatic head. ?stricture. Plan for EUS/ERCP as an outpatient with GI. Decreasing IVFs. Clear liquid diet. Advance as tolerated. Pain management with 0.5mg dilaudid q6h PRN severe pain. 2. HLD. Lipid panel unremarkable. Continue home atorvastatin 40mg. 3. HTN. Continue home losartan 25mg. 4. DM. well controlled. A1C < 6.5 consistently. Holding home metformin. No insulin coverage. Checking fasting glucose only. 5. Insomnia. Chronic. Stable. Continue home trazodone 50mg and chlorpromazine. 6. Depression and anxiety. Continue home venlafaxine and buspar. 7. Tremor. Continue home propranolol 160mg daily. 8. Migraine headaches. Continue home Topamax (prophylaxis). Dispo: pending clinical improvement. Subjective Yaquelin Trinh was doing okay this morning. Her pain medication was switched to Dilaudid which she thought was doing better. She was hungry and was going to try a clear liquid diet this morning which she was excited for. Review of Systems Review of Systems: Constitutional: denies fevers, chills Cardiac: denies chest pain, palpitations GI: denies nausea, vomiting Pulm: denies cough, shortness of breath : denies increased frequency, urgency, dysuria Physical Exam Physical Exam: Constitutional WD/WN, vitals as above Eyes PERRL, conjunctivae normal, anicteric sclerae ENMT external ear and nose normal, oropharynx normal Neck normal visual inspection Respiratory normal respiratory effort Cardiovascular RRR, no murmur, no edema Gastrointestinal (Abdomen) + bowel sounds, soft, tender to palpation RUQ Results & Data Results & Data ([facility]) Vital Signs (Past 12 Hours) Vital Signs Temp Pulse Pulse Resp BP BP Pulse Ox 04/19/20 16:00 36.6 C 52 L 18 144/80 H 98 04/19/20 15:05 43 L 04/19/20 12:18 36.7 C 54 L 20 118/72 96 04/19/20 09:34 51 L 04/19/20 09:28 59 L 04/19/20 08:07 36.9 C 45 L 18 108/67 95
[2020-04-19] MEDS: ONDANSETRON INJ 2 MG/ML 2 ML VIAL IV PRN (18:30)
[2020-04-19] MEDS: clonazePAM 0.5 MG TAB PO PRN (20:08)
[2020-04-19] MEDS: busPIRone 15 MG TAB PO SCH (20:08)
[2020-04-19] MEDS: traZODone HCL 50 MG TAB PO SCH (20:09)
[2020-04-19] MEDS: chlorproMAZINE HCL 10 MG TAB PO SCH (20:09)
[2020-04-19] MEDS: PROPRANOLOL HCL LA 80 MG CAPCR PO SCH (20:56)
[2020-04-20] MEDS: LACTATED RINGER'S 1,000 ML IV SCH ×3 (00:37→16:57)
[2020-04-20] MEDS: HYDROmorphone INJ 0.5 MG/0.5 ML SYR IV PRN ×2 (04:33→10:47)
[2020-04-20 07:23] LABS: Basophils # (auto) 0.03 K/uL (0-0.2); Basophils % (auto) 0.6 %; Eosinophils # (auto) 0.13 K/uL (0-0.5); Eosinophils % (auto) 2.7 %; Hematocrit (blood only) 31.6 % (37-47); Hemoglobin 10.6 g/dL (12.0-16.0); Immature Granulocytes # (auto) 0.01 K/uL (0.00-0.02); Immature Granulocytes % (auto) 0.2 %; Lymphocytes # (auto) 0.86 K/uL (1.2-3.4); Lymphocytes % (auto) 17.7 %; Mean Corpuscular Hemoglobin 28.6 pg (25-34); Mean Corpuscular Hgb Conc 33.5 g/dL (32-36); Mean Corpuscular Volume 85.4 fL (80-100); Monocytes # (auto) 0.31 K/uL (0.11-0.59); Monocytes % (auto) 6.4 %; Neutrophils # (auto) 3.53 K/uL (1.4-6.5); Neutrophils % (auto) 72.4 %; Platelet Count 146 K/uL (130-400); RDW Standard Deviation 40.5 fL (36.4-46.3); White Blood Count 4.87 K/uL (4.8-10.8)
[2020-04-20 07:57] LABS: Albumin Level 2.8 gm/dl (3.4-5.0); BUN Creatinine Ratio 9.4 (10-20); Calcium 8.5 mg/dl (8.5-10.1); Est GFR (Non-African American) 112.2; Potassium 3.3 mmol/L (3.5-5.1)
[2020-04-20 07:59] LABS: Albumin Globulin Ratio 1.1 (0.9-2); Bilirubin,Total 0.3 mg/dl (0.2-1); Globulin 2.6 gm/dl (2.5-4.0); Total Protein 5.4 gm/dl (6.4-8.2)
[2020-04-20] MEDS: LOSARTAN POTASSIUM 25 MG TAB PO SCH (08:50)
[2020-04-20] MEDS: ATORVASTATIN 40 MG TAB PO SCH (08:50)
[2020-04-20] MEDS: VENLAFAXINE HCL XR 75 MG CAPXR PO SCH (08:50)
[2020-04-20] MEDS: VENLAFAXINE HCL XR 150 MG CAPXR PO SCH (08:50)
[2020-04-20] MEDS: HEPARIN SOD 5,000 UNIT/0.5 ML VIAL SQ SCH ×2 (08:50→20:00)
[2020-04-20] MEDS: GABAPENTIN 800 MG TAB PO SCH ×3 (08:50→20:00)
[2020-04-20] MEDS: OXYBUTYNIN CHLORIDE XL 5 MG TABCR PO SCH (08:50)
--- NOTE | 2020-04-20 13:08 | Hospitalist Progress Note ---
Date of Service April 20, 2020 Assessment & Plan Admission and Anticipated Discharge Date Admission Date: April 16, 2020 60 yo female presenting with acute pancreatitis. Mid-abdominal tenderness with radiation to her back, elevated lipase of 1,729. CT of the Abdomen performed w/ findings consistent w/ acute pancreatitis, w/ some edema and stranding around the pancreas. No history of EtOH use, patient w/ history of cholecystectomy. Improving likely discharge tomorrow with outpatient follow up. Acute pancreatitis - Triglycerides nl., liver enzymes initially nl., although enzymes elevated initially and have since improved. This appears to be an obstructive picture despite the patient having a surgically absent gallbladder. - GI consulted - advancing diet currently full liquid diet - NSS at 250mL/hr initially transitioned to 200mL/hr and now at 125 mL/hr LR, held this PM - Zofran 4mg IV q6H as needed - Tylenol and PO Dilaudid PRN for pain control - MRCP negative for cholecystitis and choledocholithiasis but did show concern for pancreatic duct stricture - will need outpatient ERCP w/ EUS Edema of left lower extremity: Patient's LLE appears slightly swollen in comparison with RLE. Nontender, Uli's sign negative. -venous doppler - negative Hyperlipidemia: Chronic -Continue Atorvastatin 40mg po daily Hypertension: -chronic, acceptable level today -Continue Losartan 25mg po daily -Continue Propranolol as below -Continue to monitor BP Diabetes: Chronic. Well controlled. Last [id number]=4.2 on 03/23/20. Patient's HgBA1C has been below 6.5 since 11/2013. -Hold Metformin -Monitor blood sugars - 121 this AM. No insulin coverage at this time Insomnia: Chronic. Stable. Patient requests her medication to sleep -Continue Trazodone 50mg po qHS -Continue Chlorpromazine qHS Depression with anxiety: Chronic. Stable -Continue Venlafaxine -Continue Buspirone Tremor: -held Propranolol 160mg po daily given bradycardia into the 50's today Ppx - Heparin Code - Full Dispo - medical with telemetry Topamax daily for migraine prophylaxis Supervising Physician Co-Signing Physician Notes Patient seen and examined with PGY-2 Dr. Herring. Agree with history, exam findings, assessment and plan as described. In brief, 60 year old female with history of HLD, HTN, DM, essential tremor, depression and anxiety admitted with acute pancreatitis. Mild epigastric/RUQ pain today better with dilaudid compared to morphine. Did ok with clears yesterday and had full liquids for lunch. Does report that she often gets constipated at home. Has used Metamucil in the past. Vital signs and nursing notes reviewed. Well appearing and non-toxic on exam. RUQ tenderness. + bowel sounds. 1. Acute pancreatitis. She is s/p past chuckie. CT with peripancreatic fat stranding. Elevated LFTs in obstructive patterncontinue to trend down. Lipase on admission 1729 and has now normalized. MRCP with focal area of discontinuity of the proximal pancreatic duct at the level of the pancreatic head. ?stricture. Plan for EUS/ERCP as an outpatient with GI. Decreasing IVFs. Full liquid diet. Advance as tolerated. Switch from IV dilaudid to PO dilaudid. 2. Constipation. Miralax scheduled. Recommend Metamucil at home--ok to use tabs, powder or gummy. 3. HLD. Lipid panel unremarkable. Continue home atorvastatin 40mg. 4. HTN. Continue home losartan 25mg. 5. DM. well controlled. A1C < 6.5 consistently. Holding home metformin. No insulin coverage. Checking fasting glucose only. 6. Insomnia. Chronic. Stable. Continue home trazodone 50mg and chlorpromazine. 7. Depression and anxiety. Continue home venlafaxine and buspar. 8. Tremor. Continue home propranolol 160mg daily. 9. Migraine headaches. Continue home Topamax (prophylaxis). Dispo: Possible discharge tomorrow. Subjective Yaquelin Trinh was doing okay this morning. Her pain medication was switched to oral Dilaudid which she thought adressing her pain. She was hungry and was going to try a clear liquid diet this morning which she was excited for. Sister Soha was updated today. Review of Systems Review of Systems: Constitutional: denies fevers, chills Cardiac: denies chest pain, palpitations GI: admits some nausea after eating, denies vomiting Pulm: denies cough, shortness of breath : denies increased frequency, urgency, dysuria Physical Exam Physical Exam: Constitutional WD/WN, vitals as above Eyes PERRL, conjunctivae normal, anicteric sclerae ENMT external ear and nose normal, oropharynx normal Neck normal visual inspection Respiratory normal respiratory effort Cardiovascular RRR, no murmur, no edema Gastrointestinal (Abdomen) + bowel sounds, soft, tender to palpation RUQ Results & Data Results & Data ([facility]) Vital Signs (Past 12 Hours) Vital Signs Temp Pulse Resp BP BP Pulse Ox 04/20/20 10:59 37.2 C 77 18 149/91 H 96 04/20/20 07:00 36.6 C 55 L 18 125/71 96 04/20/20 02:59 36.6 C 54 L 18 143/78 H 98 CBC Results Results Complete Blood Count Results: RBC 3.70 M/uL (4.2-5.4) L 04/20/20 WBC 4.87 K/uL (4.8-10.8) 04/20/20 Hgb 10.6 g/dL (12.0-16.0) L 04/20/20 Hct 31.6 % (37-47) L 04/20/20 Plt Count 146 K/uL (130-400) 04/20/20 Chemistry (BMP) Results BMP Results: Sodium 142 mmol/L (136-145) 04/20/20 Potassium 3.3 mmol/L (3.5-5.1) L 04/20/20 Chloride 106 mmol/L (98-107) 04/20/20 BUN 4 mg/dl (7-18) L 04/20/20 Creatinine 0.42 mg/dl (0.6-1.2) L 04/20/20 Glucose 91 mg/dl (70-99) 04/20/20 Resident Activity Tracking Resident Involvement: Resident Care Provided Care Provided: Adult Hospital Medicine
[2020-04-20] MEDS ORDERED: POLYETHYLENE (MIRALAX) 17 GM PACK PO ONE ×2 (13:15→14:15)
[2020-04-20] MEDS: HYDROmorphone HCL 2 MG TAB PO PRN ×2 (16:21→22:15)
[2020-04-20] MEDS: busPIRone 15 MG TAB PO SCH (20:00)
[2020-04-20] MEDS: chlorproMAZINE HCL 10 MG TAB PO SCH (20:00)
[2020-04-20] MEDS: traZODone HCL 50 MG TAB PO SCH (20:00)
[2020-04-20] MEDS: ACETAMINOPHEN 325 MG TAB PO PRN (20:01)
[2020-04-20 23:26] VITALS: O2SAT 94
[2020-04-21 06:58] LABS: Basophils # (auto) 0.02 K/uL (0-0.2); Basophils % (auto) 0.5 %; Eosinophils # (auto) 0.19 K/uL (0-0.5); Eosinophils % (auto) 4.7 %; Hematocrit (blood only) 36.7 % (37-47); Hemoglobin 12.2 g/dL (12.0-16.0); Immature Granulocytes # (auto) 0.01 K/uL (0.00-0.02); Immature Granulocytes % (auto) 0.2 %; Lymphocytes % (auto) 19.9 %; Mean Corpuscular Hemoglobin 28.5 pg (25-34); Mean Corpuscular Hgb Conc 33.2 g/dL (32-36); Mean Corpuscular Volume 85.7 fL (80-100); Monocytes # (auto) 0.29 K/uL (0.11-0.59); Monocytes % (auto) 7.2 %; Neutrophils # (auto) 2.72 K/uL (1.4-6.5); Neutrophils % (auto) 67.5 %; Platelet Count 186 K/uL (130-400); RDW Coefficient of Variation 13.3 % (11.5-14.5); RDW Standard Deviation 41.5 fL (36.4-46.3); Red Blood Count 4.28 M/uL (4.2-5.4); White Blood Count 4.03 K/uL (4.8-10.8)
[2020-04-21] MEDS: HYDROmorphone HCL 2 MG TAB PO PRN (07:24)
[2020-04-21] MEDS: LOSARTAN POTASSIUM 25 MG TAB PO SCH (07:24)
[2020-04-21] MEDS: HEPARIN SOD 5,000 UNIT/0.5 ML VIAL SQ SCH (07:24)
[2020-04-21] MEDS: ATORVASTATIN 40 MG TAB PO SCH (07:25)
[2020-04-21] MEDS: GABAPENTIN 800 MG TAB PO SCH (07:25)
[2020-04-21] MEDS: VENLAFAXINE HCL XR 150 MG CAPXR PO SCH (07:25)
[2020-04-21] MEDS: VENLAFAXINE HCL XR 75 MG CAPXR PO SCH (07:25)
[2020-04-21] MEDS: OXYBUTYNIN CHLORIDE XL 5 MG TABCR PO SCH (07:25)
[2020-04-21 07:28] VITALS: BP 153/61; TEMP 98.1
[2020-04-21 07:30] LABS: Albumin Level 3.3 gm/dl (3.4-5.0); BUN Creatinine Ratio 4.3 (10-20); Calcium 8.9 mg/dl (8.5-10.1); Creatinine Clr Calc Pharmacy 116.6 ml/min; Est GFR (African American) 115.6; Est GFR (Non-African American) 99.8; Potassium 3.1 mmol/L (3.5-5.1)
[2020-04-21 07:33] LABS: Bilirubin,Total 0.3 mg/dl (0.2-1); Globulin 3.2 gm/dl (2.5-4.0); Total Protein 6.5 gm/dl (6.4-8.2)
[2020-04-21] MEDS ORDERED: POLYETHYLENE (MIRALAX) 17 GM PACK PO SCH (09:00)
[2020-04-21 10:15] VITALS: PULSE 106
--- NOTE | 2020-04-21 10:17 | Discharge Summary ---
Date of Service April 21, 2020 Admission HPI Per Admitting Provider Yaquelin Trinh is a 60yo C female with history of HTN, HLP, DM, COPD and Depression presenting with acute pancreatitis. Patient developed nausea with multiple episodes of nonbloody/nonbilious vomiting 3 days ago. She was unable to tolerate PO intake. Also with multiple episodes of watery diarrhea, low grade subjective fevers and epigastric abdominal pain with bandlike radiation into her back. Patient has no prior history of pancreatitis. No EtOH intake. No new medications. S/p laparoscopic cholecystectomy performed in 2013 for symptomatic cholelithiasis. Presently complaining of severe mid-abdominal pain with radiation to her back as well as some nausea. No additional complaints at this time - specifically no CP/palpitations/SOB/cough/dysuria. No calf pain. No known exposure to Covid-19 positive individuals. Rapid Covid-19 antigen testing as performed in the ER is NEGATIVE ER Course: Zofran 4mg IV x 2, Morphine 4mg IV, KCL 40mEq (for K of 3), NSS x 2L Admission Exam Per Admitting Provider General: patient restless, uncomfortable but in NAD, non-toxic in appearance, AA&O x 4 Skin: warm, dry, intact, no rashes or lesions, no jaundice HEENT: NC/AT, PERRL, EOMI, anicteric sclera, conjunctiva without injection, external ear normal to inspection and nontender, nares patent, slightly dry mucus membranes, dentition intact, no oropharyngeal lesions, neck supple, trachea midline, no LAD, no thyromegaly, no JVD Heart: +S1/S2, regular, no m/r/g Lungs: equal air entry bilaterally, no rales/rhonchi/wheezes Abd: +BS, soft, +epigastric tenderness, no rebound/guarding/peritoneal signs Ext: LLE appears to be slightly swollen and warm to touch, no tenderness, negative Uli's sign Neuro: nonfocal, patient AA&O x 4, speech intact, no facial droop, moving all extremities on command with equal strength 5/5, slight resting tremor noted on feet and hands Principal Diagnosis acute pancreatitis Discharge Exam 60 yo female presenting with acute pancreatitis. Mid-abdominal tenderness with radiation to her back, elevated lipase of 1,729. CT of the Abdomen performed w/ findings consistent w/ acute pancreatitis, w/ some edema and stranding around the pancreas. No history of EtOH use, patient w/ history of cholecystectomy. Improving likely discharge tomorrow with outpatient follow up. Acute pancreatitis - Triglycerides nl., liver enzymes initially nl., although enzymes elevated init ially and have since improved. This appears to be an obstructive picture despite the patient having a surgically absent gallbladder. - GI consulted - advancing diet currently full liquid diet - NSS at 250mL/hr initially transitioned to 200mL/hr and now at 125 mL/hr LR, held this PM - Zofran 4mg IV q6H as needed - Tylenol and PO Dilaudid PRN for pain control - MRCP negative for cholecystitis and choledocholithiasis but did show concern for pancreatic duct stricture - will need outpatient ERCP w/ EUS Edema of left lower extremity: Patient's LLE appears slightly swollen in comparison with RLE. Nontender, Uil's sign negative. -venous doppler - negative Hyperlipidemia: Chronic -Continue Atorvastatin 40mg po daily Hypertension: -chronic, acceptable level today -Continue Losartan 25mg po daily -Continue Propranolol as below -Continue to monitor BP Diabetes: Chronic. Well controlled. Last EsnC7U=2.2 on 03/23/20. Patient's HgBA1C has been below 6.5 since 11/2013. -Hold Metformin -Monitor blood sugars - 121 this AM. No insulin coverage at this time Insomnia: Chronic. Stable. Patient requests her medication to sleep -Continue Trazodone 50mg po qHS -Continue Chlorpromazine qHS Depression with anxiety: Chronic. Stable -Continue Venlafaxine -Continue Buspirone Tremor: -held Propranolol 160mg po daily given bradycardia into the 50's today Ppx - Heparin Code - Full Dispo - medical with telemetry Topamax daily for migraine prophylaxis Discharge Data Allergies Allergy/AdvReac Type Severity Reaction Status Date / Time Bactrim Allergy Intermediate itching, Verified 06/01/17 10:40 chest tightness latex Allergy Intermediate rash Verified 04/17/20 00:00 sulfamethoxazole Allergy Intermediate itching, Verified 04/17/20 00:00 chest tightness trimethoprim Allergy Intermediate itching, Verified 04/17/20 00:00 chest tightness adhesive Allergy Unknown ITCHY SKIN Verified 04/17/20 00:00 doxycycline Allergy nausea and Verified 04/17/20 00:00 vomiting clindamycin AdvReac Severe Diarrhea Verified 04/17/20 00:00 Consultations 04/16/20 22:13 ED Decision to Admit Stat 04/17/20 07:59 Consult Gastroenterology Routine Ordered Studies 04/16/20 19:11 CT abd pelvis IV con only Urgent CT head/brain wo con Urgent 04/17/20 00:37 US venous doppler LE LT Routine 04/17/20 13:39 MR MRCP Routine Hospital Course (1) Acute pancreatitis: 60 yo female presenting with acute pancreatitis. Mid-abdominal tenderness with radiation to her back, elevated lipase of 1,729. CT of the Abdomen performed w/ findings consistent w/ acute pancreatitis, w/ some edema and stranding around the pancreas. No history of EtOH use, patient w/ history of cholecystectomy. Acute pancreatitis - Triglycerides nl., liver enzymes initially nl., although enzymes elevated initially and have since improved. This appears to be an obstructive picture despite the patient having a surgically absent gallbladder. - GI consulted - advanced to normal diet - small amount of pain medication and antiemetics - MRCP negative for cholecystitis and choledocholithiasis but did show concern for pancreatic duct stricture - will need outpatient ERCP w/ EUS Edema of left lower extremity - Venous Doppler - negative Hyperlipidemia, Chronic - continue home medication Hypertension: - continue home medication Tremor: -held Propranolol 160mg po daily given bradycardia into the 50's on discharge Total Time Total Time Spent Total Time Spent (In Minutes): see attending attestation Discharge Plan Discharge Items Patient Disposition: Home - Self-Care Reason For Visit: ACUTE PANCREATITIS Discharge Diagnosis: acute pancreatitis Activity: Per Instructions section Non-emergency contact: Primary Care Provider Call non-emergency contact if: your symptoms worsen Follow-up/Referrals: Brnet Dye III, CRNP [Primary Care Provider] - 04/25/20 10:00 am Diet: Carb Consistent or DM2 Addtl Attending Provider Instructions: PANCREATITIS OVERVIEW Acute pancreatitis refers to inflammation of the pancreas, causing sudden and severe abdominal pain. The pancreas is an organ that lies in the back of the mid-abdomen. It produces digestive juices and certain hormones, including insulin. Most attacks of acute pancreatitis do not lead to complications, and most people recover uneventfully with medical care. There are many possible underlying causes of acute pancreatitis, but 60 to 75 percent of all cases are caused by gallstones or alcohol abuse. PANCREATITIS CAUSES Gallstone pancreatitis Because the gallbladder and pancreas share a drainage duct, gallstones that lodge in this duct can prevent the normal flow of pancreatic enzymes and trigger acute pancreatitis. Alcoholic pancreatitis Alcohol is a common cause of acute pancreatitis. Alcoholic pancreatitis is more common in individuals who have a long history of alcohol abuse. Drug-induced pancreatitis A number of drugs used to treat medical conditions can trigger acute pancreatitis. Post-ERCP Endoscopic retrograde cholangiopancreatography (ERCP) is a procedure that is done to evaluate the gallbladder or pancreas. Acute pancreatitis develops in about 3 to 5 percent of people who undergo ERCP. Most cases of ERCP- induced pancreatitis are mild. Hereditary conditions Acute pancreatitis can be caused by hereditary conditions, such as familial hypertriglyceridemia (high blood triglyceride levels) and hereditary pancreatitis. These conditions usually occur in children and young adults. Unexplained No underlying cause can be identified in about 20 percent of people with acute pancreatitis. This condition is called idiopathic pancreatitis. Some proportion of this group will experience additional attacks over time. lower heart rate Your heart rate was on the lower side of normal while you were in the hospital. You normally take a beta travis, but we will want you to hold this medication until you see your primary care doctor. PANCREATITIS SYMPTOMS Acute pancreatitis frequently presents with sudden, severe constant pain in the upper part of the abdomen, although other medical conditions can also cause this type of pain. The pain may wrap around your upper body and involve the back in a band-like pattern or radiate directly to the back. The pain typically lasts days and is often relieved by leaning forward. You were sent home with a limited supply of pain medication and medication to address nausea if it develops. FOLLOW UP APPOINTMENTS PCP in 1-2 weeks - call on Wednesday and see if you need another appointment in addition to your Wednesday annual physical exam GI 1-2 weeks RETURN PRECAUTIONS If you develop fevers, chills, worsening abdominal pain and nausea with vomiting that does not respond to medication we want you to call or come in to get evaluated. Pending Studies at Discharge: No Stand-Alone Forms: My [facility] [employer], Smoking Cessation Medications and CT Order Prescriptions: New hydrocodone-acetaminophen [Sandgap] 5-325 mg tablet 1 tab PO Q6H PRN (Reason: pain) Qty: 6 RF: 0 ondansetron HCl [Zofran] 4 mg tablet 4 mg PO DAILY 3 Days Qty: 3 RF: 0 Continued atorvastatin 40 mg tablet 40 mg PO DAILY Qty: 30 RF: 5 losartan 25 mg tablet 25 mg PO DAILY Qty: 30 RF: 5 ergocalciferol (vitamin D2) [Vitamin D2] 1,250 mcg (50,000 unit) capsule 50,000 units PO WK Qty: 12 RF: 1 oxybutynin chloride 10 mg tablet extended release 24hr 10 mg PO DAILY Qty: 30 RF: 5 ibuprofen 600 mg tablet 600 mg PO TID PRN (Reason: pain) Qty: 90 RF: 5 sumatriptan succinate 6 mg/0.5 mL pen injector 6 mg subcut .COMPLEX PRN (Reason: Migraine Headache) Qty: 1 RF: 0 multivitamin [Daily Multi-Vitamin] tablet 1 tab PO DAILY RF: 0 ferrous sulfate 325 mg (65 mg iron) tablet,delayed release (DR/EC) 325 mg PO BID Qty: 60 RF: 5 gabapentin 800 mg tablet 800 mg PO TID Qty: 90 RF: 5 topiramate 100 mg capsule,sprinkle,ER 24hr 100 mg PO DAILY 90 Days Qty: 90 RF: 1 venlafaxine 150 mg capsule,extended release 24hr 150 mg PO QAM Qty: 30 RF: 0 Emgality Pen 120 mg/mL pen injector 120 mg SQ MONTHLY 30 Days Qty: 1 RF: 5 rizatriptan 10 mg tablet 10 mg PO .COMPLEX PRN (Reason: Migraine Headache) 90 Days Qty: 27 RF: 1 tizanidine 4 mg tablet 4 mg PO QID PRN (Reason: muscle spasticity) Qty: 90 RF: 5 promethazine 25 mg tablet 25 mg PO BID PRN (Reason: migraine, nausea) Qty: 60 RF: 1 venlafaxine 75 mg capsule,extended release 24hr 75 mg PO QAM RF: 0 clonazepam 0.5 mg tablet 0.5 mg PO .COMPLEX PRN (Reason: Unknown) RF: 0 buspirone 30 mg tablet 30 mg PO HS RF: 0 trazodone 50 mg tablet 50 mg PO HS RF: 0 chlorpromazine 10 mg tablet 10 mg PO HS RF: 0 Discontinued propranolol 160 mg capsule,extended release 24 hr 160 mg PO HS 30 Days Qty: 30 RF: 5 Discharge Orders: Discharge Order (Routine); Ordered 04/21/20 Ordered By: Deonte Herring Admission Data Admit Date/Time: 04/16/20 23:15 Attending Provider: Teddy Domingo Admit Provider: Lacey Osorio Primary Care Provider: Brent Dye III Other Providers: Lacey Osorio ; Gulshan Pablo Other Interventions: Discharge Summary Assessment (RN) Last Done: 04/21/20 10:13 Supervising Physician Co-Signing Physician Notes Patient seen and examined independently of PGY-2 Dr. Herring. Agree with history, exam findings, assessment and plan as described. In brief, 60 year old female with history of HLD, HTN, DM, essential tremor, depression and anxiety admitted with acute pancreatitis. Did well with full liquids and soft foods this morning. Still with some mild right sided upper abdominal pain. Does report that she often gets constipated at home. Has used Metamucil in the past. Vital signs and nursing notes reviewed. Well appearing and non-toxic on exam. + bowel sounds. Right mid abdominal tenderness. No rebound or guarding. 1. Acute pancreatitis. She is s/p past chuckie. CT with peripancreatic fat stranding. Elevated LFTs in obstructive patterncontinue to trend down. Lipase on admission 1729 and has now normalized. MRCP with focal area of discontinuity of the proximal pancreatic duct at the level of the pancreatic head. ?stricture. Plan for EUS/ERCP as an outpatient with GI. 2. Constipation. Miralax scheduled. 3. HLD. Lipid panel unremarkable. Continue home atorvastatin 40mg. 4. HTN. Continue home losartan 25mg. 5. DM. well controlled. A1C < 6.5 consistently. Holding home metformin. No insulin coverage. Checking fasting glucose only. 6. Insomnia. Chronic. Stable. Continue home trazodone 50mg and chlorpromazine. 7. Depression and anxiety. Continue home venlafaxine and buspar. 8. Tremor. Continue home propranolol 160mg daily. 9. Migraine headaches. Continue home Topamax (prophylaxis). Dispo: Discharge home today. I personally spent 25 minutes discharge planning for this patient. Resident Activity Tracking Resident Involvement: Resident Care Provided Care Provided: Adult Hospital Medicine CBC Results Results Complete Blood Count Results: RBC 4.28 M/uL (4.2-5.4) 04/21/20 WBC 4.03 K/uL (4.8-10.8) L 04/21/20 Hgb 12.2 g/dL (12.0-16.0) 04/21/20 Hct 36.7 % (37-47) L 04/21/20 Plt Count 186 K/uL (130-400) 04/21/20 Chemistry (BMP) Results BMP Results: Sodium 145 mmol/L (136-145) 04/21/20 Potassium 3.1 mmol/L (3.5-5.1) L 04/21/20 Chloride 105 mmol/L (98-107) 04/21/20 BUN 3 mg/dl (7-18) L 04/21/20 Creatinine 0.60 mg/dl (0.6-1.2) 04/21/20 Glucose 102 mg/dl (70-99) H 04/21/20
[2020-04-21] MEDS ORDERED: POTASSIUM CHLORIDE 20 MEQ/15 ML UDC PO STA (10:22)
--- NOTE | 2020-04-21 20:59 | Electrocardiogram Report ---
Test Reason : Blood Pressure : / mmHG Vent. Rate : 052 BPM Atrial Rate : 052 BPM P-R Int : 124 ms QRS Dur : 084 ms QT Int : 478 ms P-R-T Axes : 062 052 054 degrees QTc Int : 444 ms Sinus bradycardia Nonspecific ST abnormality Abnormal ECG When compared with ECG of 16-APR-2020 19:21, Vent. rate has decreased BY 47 BPM Non-specific change in ST segment in Inferior leads ST no longer depressed in Anterior leads Confirmed by Ray Gomez ([id number]) on 04/21/2020 8:58:55 PM Referred By: REFERRED SELF Confirmed By:Ray Gomez
== END 2020-04-21 10:50 | disposition home or self-care (01) | DRG 440 ==
LOC: ED 18:54 → SUATTDRO 23:15 → INTOOBSV 23:15 → 2N 23:15

== ENCOUNTER 2020-05-07 19:47 | Inpatient (IN) ==
[2020-05-07] MEDS ORDERED: SODIUM CHLORIDE 0.9% 1000ML 1,000 ML IV ONE (20:43)
[2020-05-07] MEDS ORDERED: ONDANSETRON INJ 2 MG/ML 2 ML VIAL IV STA (20:43)
--- NOTE | 2020-05-07 20:47 | Emergency Department Note ---
Impression & Plan Nausea & vomiting, Headache, Abdominal pain ED Provider Note INFORMANT: Patient ED PROVIDER(S): Doroteo Vincent MD CHIEF COMPLAINT: Headache PLAN: Disposition: Admitted Condition: Good Outpatient prescription management: none Referral: None MEDICAL DECISION MAKING: Patient presented emergency room complaining of a headache however she noted that symptoms started with vomiting and upper abdominal pain. She was vomiting so much that she developed a typical migraine for her. She stated headache at triage because she noted the headache was slightly worse than the abdominal pain. She was recently treated for pancreatitis. She states this feels the same. The pain was radiating to her back. She had an IV established. She was hydrated and given IV Zofran and Dilaudid. She felt significantly better with this however was still having pain. She required additional doses of IV Dilaudid. The patient's CBC and chemistry panel were unremarkable. She does have a mildly elevated lipase. CT imaging was performed due to the pain complaints and concerns for possible pseudocyst or abscess. This did reveal pancreatitis. Incidental cysts were noted in the liver. The patient was still uncomfortable after 3 doses of Dilaudid. [facility]. Patient was evaluated in the ER admitted for further management. Triage Nursing notes reviewed and agree them. Prior medical records reviewed regarding recent hospitalization. Vital Signs: reviewed and remarkable for no significant abnormalities Differential diagnosis: Etiologies such as migraine headache, tension headache, intracranial event, pancreatitis, gastroenteritis, food borne illness, infections, appendicitis, diverticulitis, inflammatory bowel disease, GI bleed, biliary pathology, as well as others were entertained. Diagnostics interpreted by me: Cardiac Monitoring: Cardiac monitoring ordered by me: The patient was placed on continuous cardiac monitoring and observed. It revealed a normal sinus rhythm at 90 beats per minute without ectopy or evidence of dysrhythmia. Imaging studies: CT scan of the abdomen pelvis is concerning for pancreatitis. I refer to the EMR for further details. Consultation(s): [facility] HPI: The patient is a 60 year old female who presents to the Emergency Room with complaints of headache. This started last night and is feeling like a migraine. hx of same. The patient also notes the following associated symptoms, upper abd pain radiating to the back, nausea, vomiting. Recent admission for pancreatitis and this feels similar. The patient has found no relieving factors. Current pain is rated as 9/10. Pt denies LOC, fevers, chills, diaphoresis, visual changes, neck pain, chest pain, breathing difficulties,back pain, melena, hematochezia, urinary symptoms, numbness, weakness, lymphadenopathy, rash, or other complaints. ROS: See above HPI for pertinent positives & negatives. A total of 10 systems reviewed and were otherwise negative. PAST MEDICAL HISTORY:See Below ,Pancreatitis PAST SURGICAL HISTORY:See Below, FAMILY HISTORY:See Below SOCIAL HISTORY:See Below, no ETOH HOME MEDICATIONS:See Below ALLERGIES:See Below VITALS:See Below PHYSICAL EXAMINATION: GENERAL: Awake, alert, uncomfortable-appearing, in no distress HENT: Normocephalic, atraumatic. Oropharynx unremarkable. EYES: Normal conjunctiva. Sclera non-icteric.PERRL, EOMI NECK: Inspection normal. Non-tender. Supple. No nuchal rigidity. FROM. No mas ses. RESPIRATORY: Clear to auscultation. No wheezes. No rales. Normal respiratory effort. CARDIAC: Normal rate. Normal rhythm. No murmurs. No rubs. Extremities warm and well perfused. Pulses equal. No JVD. GI: Soft, non-distended. epigastric tenderness to palpation. No rebound or guarding. No masses. RECTAL: Deferred. MUSCULOSKELETAL: Atraumatic. Chest examination reveals no tenderness. The back is symmetrical on inspection without obvious abnormality. There is no CVA tenderness to palpation. No joint edema. LOWER EXTREMITIES: Calves are equal size bilaterally and non-tender. No edema. No discoloration. NEURO: Normal sensorium. No sensory or motor deficits noted. CN2-12 intact. no drift. SKIN: No rash or jaundice noted. 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 History of laparoscopic cholecystectomy S/P surgical removal of pilonidal cyst Family History Sister Rheumatoid arthritis Steatorrhea Mother Hypertension Father Parkinson disease Denies family history of Ovarian cancer Prostate cancer Myocardial infarction Breast cancer Colorectal cancer Social History Smoking Status: Current every day smoker Tobacco Type: Cigarettes Age Started Using Tobacco: 21; Age Quit Using Tobacco: 58; packs per day: 1; Years Smoked: 37; Cigarettes Per Day: 5-8; Number of Years Since Quit: 1; Second Hand Exposure: No; Hx Alcohol Use: No Hx Substance Use: No Preferred Language: Turkish Communication Ability: Effective Visual Impairment: No Limitations Hearing Ability: Normal marital status: Current Living Situation: Family Current Living Situation Comment: lives with sister and family current occupational status: disabled Feels Safe at Home: Yes Childhood Exposure to Second-Hand Smoke: No Dental Care, Regularly: No Physical Activity Frequency: Does not Exercise Seatbelt Use: always Sunscreen Use: Yes Assistive Devices: None Allergies Allergies Allergy/AdvReac Type Severity Reaction Status Date / Time Bactrim Allergy Intermediate itching, Verified 06/01/17 10:40 chest tightness latex Allergy Intermediate rash Verified 05/07/20 23:23 sulfamethoxazole Allergy Intermediate itching, Verified 05/07/20 23:23 chest tightness trimethoprim Allergy Intermediate itching, Verified 05/07/20 23:23 chest tightness adhesive Allergy Unknown ITCHY SKIN Verified 05/07/20 23:23 doxycycline Allergy nausea and Verified 05/07/20 23:23 vomiting clindamycin AdvReac Severe Diarrhea Verified 05/07/20 23:23 Home Meds Home Medications Medication Instructions Recorded Confirmed venlafaxine 75 mg PO QAM 07/20/18 05/07/20 multivitamin 1 tab PO DAILY 10/26/18 05/07/20 venlafaxine 150 mg 150 mg PO QAM #30 cap 01/24/19 05/07/20 capsule,extended release 24 hr clonazepam 0.5 mg tablet 0.5 mg PO .COMPLEX PRN tab 01/04/20 05/07/20 buspirone 30 mg PO HS 04/16/20 05/07/20 chlorpromazine 10 mg PO HS 04/16/20 05/07/20 trazodone 50 mg PO HS 04/16/20 05/07/20 Previous Rx's Medication Instructions Recorded ferrous sulfate 325 mg (65 mg 325 mg PO BID #60 tab 12/01/18 iron) tablet,delayed release atorvastatin 40 mg tablet 40 mg PO DAILY #30 tab 06/20/19 losartan 25 mg tablet 25 mg PO DAILY #30 tab 10/13/19 ergocalciferol (vitamin D2) 1,250 50,000 units PO WK #12 cap 11/14/19 mcg (50,000 unit) capsule oxybutynin chloride 10 mg 10 mg PO DAILY #30 tab 11/28/19 tablet,extended release 24 hr ibuprofen 600 mg tablet 600 mg PO TID PRN #90 tab 12/27/19 galcanezumab-gnlm 120 mg/mL 120 mg SQ MONTHLY 30 Days #1 ml 01/04/20 subcutaneous pen injector rizatriptan 10 mg tablet 10 mg PO .COMPLEX PRN 90 Days #27 01/04/20 tab sumatriptan succinate 6 mg/0.5 mL 6 mg SUBCUT .COMPLEX PRN #1 ml 03/18/20 subcutaneous pen injector gabapentin 800 mg tablet 800 mg PO TID #90 tab 04/10/20 topiramate 100 mg capsule 100 mg PO DAILY 90 Days #90 ea 04/10/20 sprinkle,extended release 24 hr promethazine 25 mg tablet 25 mg PO BID PRN #60 tab 04/25/20 tramadol 50 mg tablet 50 mg PO .COMPLEX PRN #20 tab 04/29/20 tizanidine 4 mg tablet 4 mg PO QID PRN #90 tab 05/01/20 Results & Data (ED) Vital Signs Vital Signs - 24 hr 05/07/20 19:49 05/07/20 20:43 05/07/20 21:10 Temperature 36.1 C L Temperature Source Temporal Artery Scan Pulse Rate 107 H 85 84 Pulse Rate from SpO2 Sensor Pulse Rhythm Regular Respiratory Rate 16 17 19 Respiratory Effort / Characteristics Non-Labored Spontaneous Respiratory Depth Normal Respiratory Pattern Regular Blood Pressure 156/100 H Blood Pressure Mean 118 Blood Pressure Position Sitting Pulse Oximetry 97 93 Oxygen Delivery Method Room Air Room Air Sepsis Recent Fever Within 48 Hours No Sepsis New/Unexplained Change in Mental Status No Sepsis Action Taken by Nursing No Action Required 05/07/20 21:11 05/07/20 21:30 05/07/20 21:34 Temperature Temperature Source Pulse Rate 85 72 Pulse Rate from SpO2 Sensor 85 72 Pulse Rhythm Respiratory Rate 17 15 Respiratory Effort / Characteristics Respiratory Depth Respiratory Pattern Blood Pressure 144/105 H 133/91 Blood Pressure Mean 112 109 Blood Pressure Position Pulse Oximetry 93 93 94 Oxygen Delivery Method Room Air Room Air Sepsis Recent Fever Within 48 Hours Sepsis New/Unexplained Change in Mental Status Sepsis Action Taken by Nursing 05/07/20 22:00 05/07/20 22:50 05/07/20 23:00 Temperature Temperature Source Pulse Rate 80 91 H Pulse Rate from SpO2 Sensor 79 91 H Pulse Rhythm Respiratory Rate 18 20 Respiratory Effort / Characteristics Respiratory Depth Respiratory Pattern Blood Pressure 138/76 142/92 H Blood Pressure Mean 97 105 Blood Pressure Position Pulse Oximetry 92 85 L 98 Oxygen Delivery Method Room Air Sepsis Recent Fever Within 48 Hours Sepsis New/Unexplained Change in Mental Status Sepsis Action Taken by Nursing Laboratory Data Result diagrams: 05/07/20 21:01 05/07/20 21:01 Lab Results 05/07/20 05/07/20 05/07/20 Range/Units 21:01 21:01 22:45 WBC 7.74 (4.8-10.8) K/uL RBC 4.82 (4.2-5.4) M/uL Hgb 13.8 (12.0-16.0) g/dL Hct 40.5 (37-47) % MCV 84.0 (80-100) fL MCH 28.6 (25-34) pg MCHC 34.1 (32-36) g/dL RDW Std Deviation 39.8 (36.4-46.3) fL RDW Coeff of Natali 13.2 (11.5-14.5) % Plt Count 217 (130-400) K/uL MPV 10.9 H (7.4-10.4) fL Immature Gran % (Auto) 0.1 % Neut % (Auto) 68.6 % Lymph % (Auto) 23.9 % [place] % (Auto) 4.9 % Eos % (Auto) 2.2 % Baso % (Auto) 0.3 % Neut # (Auto) 5.31 (1.4-6.5) K/uL Lymph # (Auto) 1.85 (1.2-3.4) K/uL [place] # (Auto) 0.38 (0.11-0.59) K/uL Eos # (Auto) 0.17 (0-0.5) K/uL Baso # (Auto) 0.02 (0-0.2) K/uL Immature Gran # (Auto) 0.01 (0.00-0.02) K/uL Sodium 140 (136-145) mmol/L Potassium 3.3 L (3.5-5.1) mmol/L Chloride 108 H (98-107) mmol/L Carbon Dioxide 26 (21-32) mmol/L Anion Gap 6.0 (3-11) BUN 10 (7-18) mg/dl Creatinine 0.89 (0.6-1.2) mg/dl Est Cr Clr Drug Dosing 76.3 ml/min Est GFR ( Amer) 82.2 Est GFR (Non-Af Amer) 70.9 BUN/Creatinine Ratio 11.3 (10-20) Glucose 125 H (70-99) mg/dl Calcium 9.7 (8.5-10.1) mg/dl Total Bilirubin 0.5 (0.2-1) mg/dl AST 16 (15-37) U/L ALT 27 (12-78) U/L Alkaline Phosphatase 95 (45-117) U/L Total Protein 7.2 (6.4-8.2) gm/dl Albumin 4.1 (3.4-5.0) gm/dl Globulin 3.1 (2.5-4.0) gm/dl Albumin/Globulin Ratio 1.3 (0.9-2) Lipase 652 H (73-393) U/L Urine Color Yellow Urine Appearance Clear (Clear) Urine pH 6.0 (4.5-7.5) Ur Specific [place] 1.034 H (1.000-1.030) Urine Protein Negative (Negative) Urine Glucose (UA) Negative (Negative) Urine Ketones Negative (Negative) Urine Blood Trace H (Negative) Urine Nitrite Negative (Negative) Urine Bilirubin Negative (Negative) Urine Urobilinogen Negative (Negative) Ur Leukocyte Esterase 2+ H (Negative) Urine WBC (Auto) >30 H (0-5) /hpf Urine RBC (Auto) 5-10 H (0-4) /hpf U Hyaline Cast (Auto) 1-5 (0-5) /lpf U Epithel Cells (Auto) >30 H (0-5) /lpf Urine Bacteria (Auto) Negative (Negative) Administered Medications Hydromorphone HCl (Hydromorphone Inj 0.5 Mg/0.5 Ml Syr) 0.5 mg IV Q15M PRN PRN Reason: Pain Stop: 05/21/20 20:42 Last Admin: 05/07/20 23:14 Dose: 0.5 mg Documented by: [id number] Admin: 05/07/20 21:51 Dose: 0.5 mg Documented by: [id number] Admin: 05/07/20 21:07 Dose: 0.5 mg Documented by: [id number] Discontinued Medications Sodium Chloride (Nss 1000ml) 1,000 mls @ 999 mls/hr IV .Q1H1M ONE Stop: 05/07/20 21:43 Last Infusion: 05/07/20 22:10 Dose: 0 mls/hr Documented by: [id number] Admin: 05/07/20 21:07 Dose: 999 mls/hr Documented by: [id number] Ioversol (Ioversol 100ml) 93 ml IV ONCE ONE Stop: 05/07/20 22:17 Last Admin: 05/07/20 22:17 Dose: 93 ml Documented by: [id number] Ondansetron HCl (Ondansetron Inj 2 Mg/Ml 2 Ml Vial) 4 mg IV NOW STA Stop: 05/07/20 20:44 Last Admin: 05/07/20 21:07 Dose: 4 mg Documented by: [id number] Discharge Plan Visit Data Chief Complaint: Headache Stated Complaint: vomit, nausea, headache ED Provider: Doroteo Vincent Discharge Problem: Nausea & vomiting, Headache, Abdominal pain Forms Stand Alone Forms: My [facility] [employer] 2.0 Prescriptions Prescriptions: No Action atorvastatin 40 mg tablet 40 mg PO DAILY Qty: 30 RF: 5 losartan 25 mg tablet 25 mg PO DAILY Qty: 30 RF: 5 ergocalciferol (vitamin D2) [Vitamin D2] 1,250 mcg (50,000 unit) capsule 50,000 units PO WK Qty: 12 RF: 1 oxybutynin chloride 10 mg tablet extended release 24hr 10 mg PO DAILY Qty: 30 RF: 5 ibuprofen 600 mg tablet 600 mg PO TID PRN (Reason: pain) Qty: 90 RF: 5 sumatriptan succinate 6 mg/0.5 mL pen injector 6 mg subcut .COMPLEX PRN (Reason: Migraine Headache) Qty: 1 RF: 0 tramadol 50 mg tablet 50 mg PO .COMPLEX PRN (Reason: pain) Qty: 20 RF: 0 tizanidine 4 mg tablet 4 mg PO QID PRN (Reason: muscle spasticity) Qty: 90 RF: 5 multivitamin [Daily Multi-Vitamin] tablet 1 tab PO DAILY RF: 0 ferrous sulfate 325 mg (65 mg iron) tablet,delayed release (DR/EC) 325 mg PO BID Qty: 60 RF: 5 promethazine 25 mg tablet 25 mg PO BID PRN (Reason: migraine, nausea) Qty: 60 RF: 1 gabapentin 800 mg tablet 800 mg PO TID Qty: 90 RF: 5 topiramate 100 mg capsule,sprinkle,ER 24hr 100 mg PO DAILY 90 Days Qty: 90 RF: 1 venlafaxine 150 mg capsule,extended release 24hr 150 mg PO QAM Qty: 30 RF: 0 Emgality Pen 120 mg/mL pen injector 120 mg SQ MONTHLY 30 Days Qty: 1 RF: 5 rizatriptan 10 mg tablet 10 mg PO .COMPLEX PRN (Reason: Migraine Headache) 90 Days Qty: 27 RF: 1 venlafaxine 75 mg capsule,extended release 24hr 75 mg PO QAM RF: 0 clonazepam 0.5 mg tablet 0.5 mg PO .COMPLEX PRN (Reason: Unknown) RF: 0 buspirone 30 mg tablet 30 mg PO HS RF: 0 trazodone 50 mg tablet 50 mg PO HS RF: 0 chlorpromazine 10 mg tablet 10 mg PO HS RF: 0
[2020-05-07] MEDS: HYDROmorphone INJ 0.5 MG/0.5 ML SYR IV PRN ×3 (21:07→23:14)
[2020-05-07 21:08] LABS: Basophils # (auto) 0.02 K/uL (0-0.2); Basophils % (auto) 0.3 %; Eosinophils # (auto) 0.17 K/uL (0-0.5); Eosinophils % (auto) 2.2 %; Hematocrit (blood only) 40.5 % (37-47); Hemoglobin 13.8 g/dL (12.0-16.0); Immature Granulocytes # (auto) 0.01 K/uL (0.00-0.02); Immature Granulocytes % (auto) 0.1 %; Lymphocytes # (auto) 1.85 K/uL (1.2-3.4); Lymphocytes % (auto) 23.9 %; Mean Corpuscular Hemoglobin 28.6 pg (25-34); Mean Corpuscular Hgb Conc 34.1 g/dL (32-36); Mean Platelet Volume 10.9 fL (7.4-10.4); Monocytes # (auto) 0.38 K/uL (0.11-0.59); Monocytes % (auto) 4.9 %; Neutrophils # (auto) 5.31 K/uL (1.4-6.5); Neutrophils % (auto) 68.6 %; Platelet Count 217 K/uL (130-400); RDW Coefficient of Variation 13.2 % (11.5-14.5); RDW Standard Deviation 39.8 fL (36.4-46.3); Red Blood Count 4.82 M/uL (4.2-5.4); White Blood Count 7.74 K/uL (4.8-10.8)
[2020-05-07 21:25] LABS: Albumin Level 4.1 gm/dl (3.4-5.0); BUN Creatinine Ratio 11.3 (10-20); Calcium 9.7 mg/dl (8.5-10.1); Creatinine Clr Calc Pharmacy 76.3 ml/min; Est GFR (African American) 82.2; Est GFR (Non-African American) 70.9; Potassium 3.3 mmol/L (3.5-5.1)
[2020-05-07 21:28] LABS: Albumin Globulin Ratio 1.3 (0.9-2); Bilirubin,Total 0.5 mg/dl (0.2-1); Globulin 3.1 gm/dl (2.5-4.0); Total Protein 7.2 gm/dl (6.4-8.2)
[2020-05-07] MEDS ORDERED: IOVERSOL 100ml IV ONE (22:16)
[2020-05-07 23:31] LABS: Appearance Urine Clear (Clear); Bacteria Urine Automated Negative (Negative); Bilirubin Urine Negative (Negative); Blood Urine Trace (Negative); Color Urine Yellow; Epithelial Cell Urine Auto >30 /lpf (0-5); Glucose Urine UA Negative (Negative); Ketones Urine Negative (Negative); Leukocyte Esterase Urine 2+ (Negative); Nitrite Urine Negative (Negative); Protein Urine Negative (Negative); Specific Gravity Urine 1.034 (1.000-1.030); Urobilinogen Urine Negative (Negative); WBC Urine Automated >30 /hpf (0-5)
--- NOTE | 2020-05-08 00:18 | History & Physical Report ---
Date of Service May 08, 2020 Assessment & Plan (1) Abdominal pain: Mrs. Trinh is a 60 yo woman who was recently admitted to [facility] for acute pancreatitis, returned for N/V and epigastric pain, concerning for a second episode. - suspect secondary to a mild pancreatitis flare - Lipase elevated to 652, which is less than twice the upper limit of normal; repeat level in AM - CT of abdomen and pelvis showing minimal standing surrounding pancreas (though to be indicative of residual pancreatitis). No abscess, pseudocyst or necrosis. (Official read pending) - NPO - IVF with 20 meQ KCl - Tylenol IV and Morphine prn for analgesia. zofran prn for nausea - MRCP last admission was negative for choledocholithiasis but did show concern for pancreatic duct stricture. Scheduled to have an outpatient ERCP with EUS, with Stormy MOSLEY in May. 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, although she vomited shortly thereafter - on exam, she stated head pain was nearly gone - Tylenol prn as above - patient is on Topamax daily for migraine ppx, however I will hold while NPO (3) Liver nodule: - two nodules incidentally noted on CT A/p; appeared unchanged from study in 2016, which suggests a benign prognosis - no acute management (4) Renal stone: - 10 mm stone noted incidentally in R kidney on CT of abdomen - no acute management (5) Hypertension: - BP 120/88 on admission - losartan and propranolol on hold while NPO (6) Hypokalemia: - level 3.3 - IV with 20meq Kcl - repeat BMP in am (7) Hyperlipidemia: - on atorvastatin 40mg at home; hold while NPO (8) Diabetes: - Chronic - Well controlled. Last [id number]=3.2 on 03/23/20. Patient's HgBA1C has been below 6.5 since 11/2013 - Hold home Metformin - patient did not require any insulin during last admission - BG checks ACHS (9) Tremor: - home home propranolol as above while NPO (10) Insomnia: - chronic - on trazodone and chlorpromazine; hold while npo (11) Depression with anxiety: - chronic - hold home venlafaxine and buspar while npo Diet: NPO Dvt ppx: SCDs, lovenox Dispo: Med/surg Code: Full, I discussed with patient History of Present Illness Primary Care Provider: Brent Dye III, [place] Mrs. Trinh is a 60 yo woman who was recently admitted to [facility] at the end of March 2020 for acute pancreatitis who presented with several days of nausea/vomiting (non-bloody, non-bilious) and epigastric pain. She has been unable to tolerate PO intake over the past day. She describes the epigastric pain as bandlike, with radiation to her back. Of note, she is s/p laparoscopic cholecystectomy performed in 2013 for symptomatic cholelithiasis. She denies any Etoh use. TG were checked last admission and were normal. She had an MRCP last admission, which was negative for choledocholithiasis but did show concern for pancreatic duct stricture. She was advised to have an outpatient ERCP with EUS, which is reportedly scheduled with [facility] in May. Today, she developed a migraine headache (unilateral head pain with associated photophobia), which she attributes to being dehydrated. She has a script for Rizatriptan, which she took before coming to the ED, however she vomited it shortly thereafter. In the ED, she was afebrile. Her WBC was normal. Her K was low at 3.3. Her Ca2+ was normal. UA 2+ for LE, > 30 WBCs, neg nitrites, neg bacteria. Urine culture pending. Lipase 652. CT of abdomen and pelvis showing minimal stranding surrounding the pancreas (thought to be indicative of residual pancreatitis). No abscess, pseudocyst, or necrosis. (Official read pending). She was given 0.5mg hydromorphone, Zofran and 1 liter of normal saline. Allergies Allergy/AdvReac Type Severity Reaction Status Date / Time Bactrim Allergy Intermediate itching, Verified 06/01/17 10:40 chest tightness latex Allergy Intermediate rash Verified 05/07/20 23:23 sulfamethoxazole Allergy Intermediate itching, Verified 05/07/20 23:23 chest tightness trimethoprim Allergy Intermediate itching, Verified 05/07/20 23:23 chest tightness adhesive Allergy Unknown ITCHY SKIN Verified 05/07/20 23:23 doxycycline Allergy nausea and Verified 01/19/21 23:23 vomiting clindamycin AdvReac Severe Diarrhea Verified 05/07/20 23:23 Home Medications Medication Instructions Recorded Confirmed Type venlafaxine 75 mg PO QAM 07/20/18 05/07/20 History multivitamin 1 tab PO DAILY 10/26/18 05/07/20 History ferrous sulfate 325 mg (65 mg 325 mg PO BID #60 tab 12/01/18 05/07/20 Rx iron) tablet,delayed release venlafaxine 150 mg 150 mg PO QAM #30 cap 01/24/19 05/07/20 History capsule,extended release 24 hr atorvastatin 40 mg tablet 40 mg PO DAILY #30 tab 06/20/19 05/07/20 Rx losartan 25 mg tablet 25 mg PO DAILY #30 tab 10/13/19 05/07/20 Rx ergocalciferol (vitamin D2) 1,250 50,000 units PO WK #12 cap 11/14/19 05/07/20 Rx mcg (50,000 unit) capsule oxybutynin chloride 10 mg 10 mg PO DAILY #30 tab 11/28/19 05/07/20 Rx tablet,extended release 24 hr ibuprofen 600 mg tablet 600 mg PO TID PRN #90 tab 12/27/19 05/07/20 Rx clonazepam 0.5 mg tablet 0.5 mg PO .COMPLEX PRN tab 01/04/20 05/07/20 History galcanezumab-gnlm 120 mg/mL 120 mg SQ MONTHLY 30 Days #1 ml 01/04/20 05/07/20 Rx subcutaneous pen injector rizatriptan 10 mg tablet 10 mg PO .COMPLEX PRN 90 Days #27 01/04/20 05/07/20 Rx tab sumatriptan succinate 6 mg/0.5 mL 6 mg SUBCUT .COMPLEX PRN #1 ml 03/18/20 05/07/20 Rx subcutaneous pen injector gabapentin 800 mg tablet 800 mg PO TID #90 tab 04/10/20 05/07/20 Rx topiramate 100 mg capsule 100 mg PO DAILY 90 Days #90 ea 04/10/20 05/07/20 Rx sprinkle,extended release 24 hr buspirone 30 mg PO HS 04/16/20 05/07/20 History chlorpromazine 10 mg PO HS 04/16/20 05/07/20 History trazodone 50 mg PO HS 04/16/20 05/07/20 History promethazine 25 mg tablet 25 mg PO BID PRN #60 tab 04/25/20 05/07/20 Rx tramadol 50 mg tablet 50 mg PO .COMPLEX PRN #20 tab 04/29/20 05/07/20 Rx tizanidine 4 mg tablet 4 mg PO QID PRN #90 tab 05/01/20 05/07/20 Rx Past Med/Surg History Medical History Acute pancreatitis Depression (09/09/12) Diabetes History of uterine fibroid Hyperlipidemia Hypertension Migraine (09/09/12) Pancreatic duct stricture Panic attack (09/09/12) PMB (postmenopausal bleeding) Surgical History History 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 History of laparoscopic cholecystectomy S/P surgical removal of pilonidal cyst Family History Sister Rheumatoid arthritis Steatorrhea Mother Hypertension Father Parkinson disease Denies family history of Ovarian cancer Prostate cancer Myocardial infarction Breast cancer Colorectal cancer Social History Smoking Status: Current every day smoker Tobacco Type: Cigarettes Age Started Using Tobacco: 21; Age Quit Using Tobacco: 58; packs per day: 1; Years Smoked: 37; Cigarettes Per Day: 2; Number of Years Since Quit: 1; Second Hand Exposure: No; Hx Alcohol Use: No Hx Substance Use: No Preferred Language: Northern Irish Communication Ability: Effective Visual Impairment: No Limitations Hearing Ability: Normal Environmental Communications Specialist Required: No Beliefs That Will Affect Care: None marital status: Current Living Situation: Family Current Living Situation Comment: sister current occupational status: disabled Feels Safe at Home: Yes Childhood Exposure to Second-Hand Smoke: No Dental Care, Regularly: No Physical Activity Frequency: Does not Exercise Seatbelt Use: always Sunscreen Use: Yes Assistive Devices: None Review of Systems Gastrointestinal: + abdominal pain, + nausea and + vomiting; no change in bowel habits Genitourinary: no dysuria and no urinary frequency Neurologic: + headache(s) Physical Exam Constitutional: WD/WN, vitals as above cooperative; no acute distress Eyes: + anicteric sclerae ENMT: external ear and nose normal, oropharynx normal Neck: normal visual inspection and trachea midline Respiratory: normal respiratory effort, lungs clear to auscultation Auscultation: no crackles and no wheezes Cardiovascular: RRR, no murmur, no edema Heart Sounds: normal S1 and normal S2 Extremities: no pedal edema Gastrointestinal (Abdomen): Inspection/Auscultation: abdomen normal to inspection Percussion/Palpation: + abdomen tender (epigastrium, RUQ, LUQ) and abdomen soft; no guarding + CVA tenderness on R Skin: no rashes, warm and dry Psychiatric: A+Ox3, euthymic affect Results & Data Results & Data ([facility]) Vital Signs (Past 12 Hours) Vital Signs Temp Pulse Resp BP Pulse Ox 05/07/20 23:00 91 H 20 142/92 H 98 05/07/20 22:50 85 L 05/07/20 22:00 80 18 138/76 92 05/07/20 21:34 94 05/07/20 21:30 72 15 133/91 93 05/07/20 21:11 85 17 144/105 H 93 05/07/20 21:10 84 19 05/07/20 20:43 85 17 93 05/07/20 19:49 36.1 C L 107 H 16 156/100 H 97 Supervising Physician Co-Signing Physician Notes Attending addendum: I have physically seen this patient, have supervised the medical residents activities, and agree with the H&P unless as otherwise noted. Assessment and Plan: Mild pancreatitis/enteritis/history of pancreatic duct stricture- NPO NSS + KCl 20 mEq 100 mils per hour Acetaminophen 1 g IV every 8 hours as needed mild pain or temperature Morphine sulfate 2 mg IV every 3 hours as needed severe pain Zofran 4 mg IV every 6 hours as needed Patient reports that she is scheduled for an outpatient study to be done in May Consult [facility] gastroenterology Remainder of orders and notations as noted Resident Activity Tracking Resident Involvement: Resident Care Provided Care Provided: Adult Hospital Medicine (1) Insomnia Insomnia type: unspecified Qualified Code(s): G47.00 - Insomnia, unspecified (2) Diabetes Diabetes mellitus complication status: without complication Diabetes mellitus senior living insulin use: without buttermaker helper use Diabetes mellitus type: type 2 Qualified Code(s): E11.9 - Type 2 diabetes mellitus without complications (3) Hyperlipidemia Hyperlipidemia type: unspecified Qualified Code(s): E78.5 - Hyperlipidemia, unspecified (4) Hypertension Hypertension type: essential hypertension Qualified Code(s): I10 - Essential (primary) hypertension
[2020-05-08] MEDS ORDERED: GLUCOSE 40% GEL 15 GM TUBE PO PRN (02:15)
[2020-05-08] MEDS ORDERED: GLUCAGON FOR INJ 1 MG VIAL SQ PRN (02:15)
[2020-05-08] MEDS ORDERED: GLUCOSE 10 TABS/TUBE PO PRN (02:15)
[2020-05-08] MEDS ORDERED: DEXTROSE 50% 50 ML SYRINGE IV PRN (02:15)
[2020-05-08] MEDS ORDERED: CARBOHYDRATES FOR HYPOGLYCEMIA PO PRN (02:15)
[2020-05-08] MEDS ORDERED: NSS + 20MEQ KCL 20 MEQ/1,000 ML BAG IV SCH (02:25)
[2020-05-08] MEDS: ONDANSETRON INJ 2 MG/ML 2 ML VIAL IV PRN ×2 (03:44→08:04)
[2020-05-08] MEDS: MoRPHine SULFATE 2 MG/ML CARP IV PRN ×3 (03:45→15:37)
--- NOTE | 2020-05-08 07:36 | CT Scan Report ---
ABDOMEN AND PELVIS CT WITH IV CONTRAST CT DOSE: 1081.98 mGycm HISTORY: Acute upper abdominal pain with history of pancreatitis upper abd pain, recent pancreatitis TECHNIQUE: Multiaxial CT images of the abdomen and pelvis were performed following the IV administrat ion of 93 cc of Optiray 320, A dose lowering technique was utilized adhering to the principles of AL YINA. COMPARISON STUDY: CT abdomen and pelvis 04/16/2020 FINDINGS: Chronic left hemidiaphragmatic elevation with left lung base atelectasis. Calcified granulo ma of the right middle lobe. Prior median sternotomy. There is no pneumatosis or pneumoperitoneum. Probable hemangioma within the right hepatic lobe redemonstrated measuring 3.8 cm. Indeterminate mild ly hypodense 1.3 cm lesion of the left hepatic lobe is also unchanged. Mild periportal edema. Patency of the hepatic and portal vein. Splenic vein is also patent. There is suggestion of a new partially occlusive thrombus noted involving the superior mesenteric vein on image 204 series 3 versus mixing a rtifact. Hypodensities of the spleen measuring up to 3.4 cm redemonstrated and likely benign. Unremar kable adrenal glands. Cholecystectomy. Mild interstitial and peripancreatic inflammation is noted wit h decreased enhancement and worsening inflammation of the uncinate process of the pancreas on image 1 96 series 3. No peripancreatic fluid collection. No significant pancreatic ductal dilation. Nonobstructing calculi of the left kidney measure up to 7 mm within the inferior pole. Unremarkable r ight kidney. No ureteral calculi or obstructive uropathy. Urinary bladder is unremarkable. Heterogene ity of the uterus with a probable 1.5 cm fundal fibroid. Mild calcified plaque the abdominal aorta wi thout aneurysm. Small hiatal hernia with trace fluid within the hernia sac. There is no bowel obstruction. No bowel w all thickening. Noninflamed appendix. Unremarkable soft tissues. There is no acute fracture. Probable bone islands of the right femoral head. IMPRESSION: 1. Persistent findings of acute pancreatitis. There is increased heterogeneity with decreased enhance ment of the uncinate process of the pancreas which may be secondary to worsening interstitial edema v ersus developing pancreatic necrosis. No peripancreatic fluid collection identified. This finding was called/faxed to the floor at time of dictation. 2. Cholecystectomy. No biliary or pancreatic ductal dilation. 3. Mixing artifact versus partially occlusive thrombus of the superior mesenteric vein. The portal ve in is patent. 4. No bowel obstruction or bowel wall thickening. 5. Small hiatal hernia. 6. Nonobstructing left nephrolithiasis. ACT 112: Negative or not required by law. The above report was generated using voice recognition software. It may contain grammatical, syntax o r spelling errors. Electronically signed by: Blue Rod M.D. 05/08/2020 7:34 AM
[2020-05-08 08:27] LABS: BUN Creatinine Ratio 9.5 (10-20); Calcium 8.8 mg/dl (8.5-10.1); Est GFR (African American) 93.5; Est GFR (Non-African American) 80.7; Potassium 3.2 mmol/L (3.5-5.1)
[2020-05-08] MEDS ORDERED: ENOXAPARIN INJ 30 MG/0.3 ML SYR SQ SCH (09:00)
[2020-05-08] MEDS ORDERED: PIPERACILL/TAZOBAC CONSULT ACTIVE PRN (09:05)
[2020-05-08] MEDS ORDERED: PIPERACILLIN/TAZOBACTAM 3.375 GM in DEXTROSE 5% 100 ML IV ONE (09:15)
[2020-05-08] MEDS: ACETAMINOPHEN 1000 MG/100 ML IV IV PRN (09:24)
--- NOTE | 2020-05-08 10:23 | Gastrointestinal Consultation ---
Date of Consultation May 08, 2020 Assessment & Plan (1) Pancreatitis, acute: IV LR at 250/hr. Sips water only, otherwise bowel rest. Present on Admission?: Yes (2) Superior mesenteric artery thrombosis: Discussed with radiology (Dr. Toure) with opinion that no better imaging available to r/o or confirm the SMV. Please begin anticoagulation with heparin but hold at midnight pending EUS tomorrow. Presumably will restart anticoagulation after the EUS unless unexpected findings. Present on Admission?: Yes (3) Pancreatic duct stricture: Plan for EUS tomorrow to r/o mass. Will also keep the pt scheduled for OP EUS in May as there should be less inflammation at that time, thus landmarks will be more visible and thrombus can be more carefully assessed at that time. Present on Admission?: Yes Supervising Physician Co-Signing Physician Notes I performed a history and physical examination of the patient today, including specifically on physical exam - soft abdomen. I have discussed the patient's management with the advanced practitioner. Please refer to the nurse practitioner's note for the documented findings and plan of care.+ Recurrent acute pancreatitis, unclear etiology. No clear evidence of malignancy on CT scan. ? PD stricture. Plan for limited EUS tomorrow. ? SMV thrombosis, will need AC for 3-6 months, repeat CT scan in 3 months to clarify once edema from pancreatitis resolves. History of Present Illness Reason for Consultation: Recurrent pancreatitis Requesting Physician: Yolette Peralta NP Attending Physician: Grady Myers DO History of Present Illness Ms. Yaquelin Gottlieb is a 60 yr old female with a hx of depression, migraines, COPD, DM pt of Brent Dye NP who presented to the ED late yesterday for headache, nausea, vomiting and abdominal pain. GI is consulted for abd pain. CT on arrival suggestive of a new partially occlusive SMV thrombus, acute pancreatitis, enhancement of the uncinate process and developing pancreatic n ecrosis. Lipase is significant elevated: 625 yesterday, 1324 today. She is known to our group as she was seen in consult for acute, uncomplicated pancreatitis in Mar 2020 with MRCP at that time with suggestion of main pancreatic duct stricture and upstream pancreatic duct dilation at the head of the pancreas. OP EUS is arranged for May 2020. The pt tells me that her pain improved a bit since that last admission but never resolved. On Wednesday night, pain worsened, accompanied by worsening migraines, prompting her presentation to the ED. She has nausea/vomiting and temp in the 99s but no jaundice,icterus or dark urine. She is S/P distant cholecystectomy and denies any alcohol intake. Allergies Allergy/AdvReac Type Severity Reaction Status Date / Time Bactrim Allergy Intermediate itching, Verified 06/01/17 10:40 chest tightness latex Allergy Intermediate rash Verified 05/07/20 23:23 sulfamethoxazole Allergy Intermediate itching, Verified 05/07/20 23:23 chest tightness trimethoprim Allergy Intermediate itching, Verified 05/07/20 23:23 chest tightness adhesive Allergy Unknown ITCHY SKIN Verified 05/07/20 23:23 doxycycline Allergy nausea and Verified 05/07/20 23:23 vomiting clindamycin AdvReac Severe Diarrhea Verified 05/07/20 23:23 Home Medications Medication Instructions Recorded Confirmed Type venlafaxine 75 mg PO QAM 07/20/18 05/07/20 History multivitamin 1 tab PO DAILY 10/26/18 05/07/20 History ferrous sulfate 325 mg (65 mg 325 mg PO BID #60 tab 12/01/18 05/07/20 Rx iron) tablet,delayed release venlafaxine 150 mg 150 mg PO QAM #30 cap 01/24/19 05/07/20 History capsule,extended release 24 hr atorvastatin 40 mg tablet 40 mg PO DAILY #30 tab 06/20/19 05/07/20 Rx losartan 25 mg tablet 25 mg PO DAILY #30 tab 10/13/19 05/07/20 Rx ergocalciferol (vitamin D2) 1,250 50,000 units PO WK #12 cap 11/14/19 05/07/20 Rx mcg (50,000 unit) capsule oxybutynin chloride 10 mg 10 mg PO DAILY #30 tab 11/28/19 05/07/20 Rx tablet,extended release 24 hr ibuprofen 600 mg tablet 600 mg PO TID PRN #90 tab 12/27/19 05/07/20 Rx clonazepam 0.5 mg tablet 0.5 mg PO .COMPLEX PRN tab 01/04/20 05/07/20 History galcanezumab-gnlm 120 mg/mL 120 mg SQ MONTHLY 30 Days #1 ml 01/04/20 05/07/20 Rx subcutaneous pen injector rizatriptan 10 mg tablet 10 mg PO .COMPLEX PRN 90 Days #27 01/04/20 05/07/20 Rx tab sumatriptan succinate 6 mg/0.5 mL 6 mg SUBCUT .COMPLEX PRN #1 ml 03/18/20 05/07/20 Rx subcutaneous pen injector gabapentin 800 mg tablet 800 mg PO TID #90 tab 04/10/20 05/07/20 Rx topiramate 100 mg capsule 100 mg PO DAILY 90 Days #90 ea 04/10/20 05/07/20 Rx sprinkle,extended release 24 hr buspirone 30 mg PO HS 04/16/20 05/07/20 History chlorpromazine 10 mg PO HS 04/16/20 05/07/20 History trazodone 50 mg PO HS 04/16/20 05/07/20 History promethazine 25 mg tablet 25 mg PO BID PRN #60 tab 04/25/20 05/07/20 Rx tramadol 50 mg tablet 50 mg PO .COMPLEX PRN #20 tab 04/29/20 05/07/20 Rx tizanidine 4 mg tablet 4 mg PO QID PRN #90 tab 05/01/20 05/07/20 Rx Patient History Medical History (Updated 05/08/20 @ 14:11 by CATARINO Lala) Acute pancreatitis Depression (09/09/12) Diabetes History of uterine fibroid Hyperlipidemia Hypertension Migraine (09/09/12) Pancreatic duct stricture Panic attack (09/09/12) PMB (postmenopausal bleeding) Surgical History History 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 History of laparoscopic cholecystectomy S/P surgical removal of pilonidal cyst Family History Sister Rheumatoid arthritis Steatorrhea Mother Hypertension Father Parkinson disease Denies family history of Ovarian cancer Prostate cancer Myocardial infarction Breast cancer Colorectal cancer Social History Smoking Status: Current every day smoker Tobacco Type: Cigarettes Age Started Using Tobacco: 21; Age Quit Using Tobacco: 58; packs per day: 1; Years Smoked: 37; Cigarettes Per Day: 2; Number of Years Since Quit: 1; Second Hand Exposure: No; Hx Alcohol Use: No Hx Substance Use: No Preferred Language: Angolan Communication Ability: Effective Visual Impairment: No Limitations Hearing Ability: Normal Otologist Required: No Beliefs That Will Affect Care: None marital status: Current Living Situation: Family Current Living Situation Comment: sister current occupational status: disabled Feels Safe at Home: Yes Childhood Exposure to Second-Hand Smoke: No Dental Care, Regularly: No Physical Activity Frequency: Does not Exercise Seatbelt Use: always Sunscreen Use: Yes Assistive Devices: None Review of Systems Review of Systems: ROS: Gen: + headaches, + temps to 99's, "always hot" Eyes: No eye redness, or pain, no recent vision changes Resp: No SOB, no cough Cardio: No palpitations/irregular beats, no chest pain GI: + acute on chronic abd pain, w nausea/vomiting : Denies pain on urination Skin: No jaundice, itching or new rashes Constitutional: +weakness, weight loss, denies fevers Physical Exam Constitutional: WD/WN, vitals as above + acute distress (appears uncomfortable mentioning headache; holding cool cloth to forhead) and + overweight Eyes: PERRL, conjunctivae normal, anicteric sclerae ENMT: external ear and nose normal, oropharynx normal Neck: trachea midline, no thyromegaly Respiratory: normal respiratory effort, lungs clear to auscultation Cardiovascular: RRR, no murmur, no edema Gastrointestinal (Abdomen): Inspection/Auscultation: abdomen not distended Percussion/Palpation: + abdomen tender (very tender over the upper abd) and abdomen soft Musculoskeletal: no cyanosis or clubbing, extremities motor strength 5/5 Skin: no rashes, warm and dry no jaundice Neurologic: PERRL, EOMI, accommodation nl, no face palsy, no dysarthria Psychiatric: A+Ox3, euthymic affect Lymphatic: no cervical or axillary lymphadenopathy Results & Data ([facility]) Vital Signs (Past 12 Hours) Vital Signs Temp Pulse Pulse Resp BP BP Pulse Ox 05/08/20 08:27 36.9 C 84 18 130/79 90 05/08/20 02:25 37.0 C 107 H 14 136/89 92 05/08/20 02:06 87 21 141/76 H 95 01/20/21 01:00 90 17 120/88 97 05/08/20 00:30 92 H 24 139/92 97 05/08/20 00:01 95 H 19 111/85 97 05/07/20 23:30 91 H 26 H 128/82 97 05/07/20 23:00 91 H 20 142/92 H 98 05/07/20 22:50 85 L Pulse Ox 05/08/20 08:27 05/08/20 02:25 92 05/08/20 02:06 05/08/20 01:00 05/08/20 00:30 05/08/20 00:01 05/07/20 23:30 05/07/20 23:00 05/07/20 22:[address] abd/pelvis with IV contrast on 05/07/20: New partially occlusive thrombus noted involving the superior mesenteric vein. 1. Persistent findings of acute pancreatitis. There is increased heterogeneity with decreased enhancement of the uncinate process of the pancreas which may be secondary to worsening interstitial edema versus developing pancreatic necrosis. No peripancreatic fluid collection identified. This finding was called/faxed to the floor at time of dictation. 2. Cholecystectomy. No biliary or pancreatic ductal dilation. 3. Mixing artifact versus partially occlusive thrombus of the superior mesenteric vein. The portal vein is patent. 4. No bowel obstruction or bowel wall thickening. 5. Small hiatal hernia. 6. Nonobstructing left nephrolithiasis. MRCP 04/17/20: 1. Status post cholecystectomy. 2. There is no intra or extrahepatic biliary ductal dilatation. No choledocholithiasis is seen. 3. There is prominence of the upstream pancreatic duct with focal discontinuity of the proximal duct at the level of the pancreatic head. This is of indeterminant significance and could represent stricture. 4. There is evidence of acute pancreatitis. (1) Pancreatitis, acute Acute pancreatitis complication: no infection or necrosis Pancreatitis type: unspecified pancreatitis type Qualified Code(s): K85.90 - Acute pancreatitis without necrosis or infection, unspecified
[2020-05-08] MEDS ORDERED: PROMETHAZINE HCL 12.5 MG in SODIUM CHLORIDE 0.9% 50 ML IV ONE (11:00)
[2020-05-08] MEDS ORDERED: SUMAtriptan succinate 6 MG/0.5 ML VIAL SQ ONE (11:00)
[2020-05-08] MEDS: TOPIRAMATE 100 MG TAB PO SCH (11:13)
[2020-05-08] MEDS: LACTATED RINGER'S 1,000 ML IV SCH ×4 (12:14→23:49)
[2020-05-08] MEDS ORDERED: Heparin IV Standard *NO* Bolus IV SCH (13:00)
[2020-05-08] MEDS ORDERED: Nursing to Pharmacy Communication SCH (13:45)
--- NOTE | 2020-05-08 13:47 | Hospitalist Progress Note ---
Date of Service May 08, 2020 Assessment & Plan (1) Pancreatitis, acute: Lipase increased to 1324 today from [address] showing pancreatitis with possible necrosis IV LR at 250/hr. Sips water only, otherwise bowel rest. Consulted GI - EUS tomorrow. (2) Superior mesenteric artery thrombosis: Initial read on CT with artifact vs. partially occlusive thrombus of the superior mesenteric vein. GI discussed with radiology (Dr. Toure) with opinion that no better imaging available to r/o or confirm the SMV. Will initiate heparin gtt, hold at [facility] for EUS Will need to continue with anticoagulation at least until May when a follow up EUS can be performed and hopefully the inflammation is reduced enough that a better visual of the venous system can be attained. (3) Pancreatic duct stricture: Plan for EUS tomorrow to r/o mass. F/U EUS scheduled outpatient in May (4) Chronic migraine: Continue home topiramate scheduled, prn rizatriptan. (5) Liver nodule: - two nodules incidentally noted on CT A/p; appeared unchanged from study in 2016 - no acute management (6) Renal stone: - 10 mm stone noted incidentally in R kidney on CT of abdomen - no acute management (7) Hypertension: Stable Continue home losartan when taking po (8) Hypokalemia: Potassium 3.2 - replace with IV riders (9) Abnormal urinalysis: Leuk esterase, WBCs, RBCs, in urine UC pending but patient without urinary symptoms Kidneys and bladder unremarkable on CT except for stone as mentioned above (10) Diabetes: type II Well controlled. Last PzlW4V=8.2 on 03/23/20. Patient's HgBA1C has been below 6.5 since 11/2013 - Hold home Metformin - patient did not require any insulin during last admission - BG checks ACHS (11) Tremor: hold home propranolol while npo (12) Depression with anxiety: hold home venlafaxine and buspar while npo (13) Insomnia: continue home trazadone and chlorpromazine when taking po (14) DVT prophylaxis: Heparin gtt as above Admission and Anticipated Discharge Date Admission Date: May 08, 2020 Subjective Ms. Trinh is having a migraine which she reports she gets once per week. She is having photophobia and some mild nausea. Denies any neck pain. Headache is over the right front of her head. She is not having abdominal pain. No bm since admission Review of Systems Constitutional: no fever, no chills and no body aches Respiratory: no cough and no dyspnea Cardiovascular: no chest pain and no palpitations Gastrointestinal: no abdominal pain, no nausea and no vomiting Genitourinary: no dysuria and no urinary hesitancy Musculoskeletal: no back pain and no joint pain Integumentary: no rash Physical Exam Physical Exam: General: no distress Eyes: normal inspection, PERLL Respiratory: chest non tender, clear to auscultation, normal breath sounds, no respiratory distress, no accessory muscle use Cardiac: regular rate and rhythm, no rub or gallop, no murmur, no edema, no jvd GI/: active bowel sounds, mid upper abdominal tenderness to palpation, soft, non distended Extremities: normal range of motion, normal strength, non tender Neuro/Psych: alert and oriented x 3, normal mood and affect, CN II - XII intact Skin: normal color, dry Results & Data Results & Data ([facility]) Vital Signs (Past 12 Hours) Vital Signs Temp Pulse Pulse Resp BP BP Pulse Ox 05/08/20 08:27 36.9 C 84 18 130/79 90 05/08/20 02:25 37.0 C 107 H 14 136/89 92 05/08/20 02:06 87 21 141/76 H 95 Pulse Ox 05/08/20 08:27 05/08/20 02:25 92 05/08/20 02:06 PG Care Time/CCT Total # of Minutes Spent Total Time Spent with Patient: Total time spent is greater than 50% in coordination of care (as documented) at patient's floor/unit and/or counseling patient: Coding Level of Care Code 52500 Subseq Hosp Care Lvl 3 Diagnoses Pancreatitis, acute K85.90 Acute pancreatitis complication: no infection or necrosis Pancreatitis type: unspecified pancreatitis type Superior mesenteric artery thrombosis K55.069 Pancreatic duct stricture K86.89 Chronic migraine G43.709 Liver nodule K76.89 Renal stone N20.0 Hypertension I10 Hypertension type: essential hypertension Hypokalemia E87.6 Abnormal urinalysis R82.90 Diabetes E11.9 Diabetes mellitus type: type 2 Diabetes mellitus 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 system operator insulin use: without intermediate use Diabetes mellitus complication status: without complication Tremor R25.1 Depression with anxiety F41.8 Insomnia G47.00 Insomnia type: unspecified DVT prophylaxis Z29.9 (1) Pancreatitis, acute Acute pancreatitis complication: no infection or necrosis Pancreatitis type: unspecified pancreatitis type Qualified Code(s): K85.90 - Acute pancreatitis without necrosis or infection, unspecified (2) Hypertension Hypertension type: essential hypertension Qualified Code(s): I10 - Essential (primary) hypertension (3) Diabetes Diabetes mellitus type: type 2 Diabetes mellitus intermediate insulin use: without terminal system operator use Diabetes mellitus complication status: without complication Qualified Code(s): E11.9 - Type 2 diabetes mellitus without complications (4) Insomnia Insomnia type: unspecified Qualified Code(s): G47.00 - Insomnia, unspecified
[2020-05-08] MEDS: HEPARIN SODIUM/DEXTROSE 25,000 UNITS/500 ML BAG IV SCH (13:54)
[2020-05-08] MEDS: POTASSIUM CHLORIDE / WTR 10 MEQ/100 ML PLCT IV SCH ×3 (14:59→17:36)
[2020-05-08] MEDS: PIPERACILLIN/TAZOBACTAM 3.375 GM in DEXTROSE 5% 100 ML IV SCH ×2 (15:00→20:55)
[2020-05-08] MEDS ORDERED: MoRPHine SULFATE 2 MG/ML CARP IV PRN (17:19)
[2020-05-08] MEDS ORDERED: PROMETHAZINE HCL 12.5 MG in SODIUM CHLORIDE 0.9% 50 ML IV PRN (17:21)
[2020-05-08 18:45] LABS: Influenza A virus by PCR Negative (Neg); Influenza B virus by PCR Negative (Neg); RSV by PCR Negative (Neg); SARS CoV2 RNA(COVID-19) InHosp NEGATIVE (Negative)
--- NOTE | 2020-05-08 20:27 | Anesthesiology Consultation ---
Date of Service May 08, 2020 Assessment & Plan (1) Encounter for pre-operative examination: Chart Review Chart Review: Patient NOT seen in Pre Admission Testing Consults Requested none Additional Notes Chart and labs to be reviewed on DOS by anesthesiologist assigned to the case to determine if patient ok to proceed with anesthesia for EUS. History Surgery Operation Date: 05/09/20 09:10 Proposed Procedures p Upper Endoscopic Ultrasonography - Jason Hill MD Height/Weight Height: 5 ft 6 in Weight: 88.8 kg Allergies Allergy/AdvReac Type Severity Reaction Status Date / Time Bactrim Allergy Intermediate itching, Verified 06/01/17 10:40 chest tightness latex Allergy Intermediate rash Verified 05/07/20 23:23 sulfamethoxazole Allergy Intermediate itching, Verified 05/07/20 23:23 chest tightness trimethoprim Allergy Intermediate itching, Verified 05/07/20 23:23 chest tightness adhesive Allergy Unknown ITCHY SKIN Verified 05/07/20 23:23 doxycycline Allergy nausea and Verified 05/07/20 23:23 vomiting clindamycin AdvReac Severe Diarrhea Verified 05/07/20 23:23 Medications Home Medications Medication Instructions Recorded Confirmed Last Taken venlafaxine 75 mg PO QAM 07/20/18 05/07/20 Unknown multivitamin 1 tab PO DAILY 10/26/18 05/07/20 Unknown ferrous sulfate 325 mg (65 mg 325 mg PO BID #60 tab 12/01/18 05/07/20 Unknown iron) tablet,delayed release venlafaxine 150 mg 150 mg PO QAM #30 cap 01/24/19 05/07/20 Unknown capsule,extended release 24 hr atorvastatin 40 mg tablet 40 mg PO DAILY #30 tab 06/20/19 05/07/20 Unknown losartan 25 mg tablet 25 mg PO DAILY #30 tab 10/13/19 05/07/20 Unknown ergocalciferol (vitamin D2) 1,250 50,000 units PO WK #12 cap 11/14/19 05/07/20 Unknown mcg (50,000 unit) capsule oxybutynin chloride 10 mg 10 mg PO DAILY #30 tab 11/28/19 05/07/20 Unknown tablet,extended release 24 hr ibuprofen 600 mg tablet 600 mg PO TID PRN #90 tab 12/27/19 05/07/20 Unknown clonazepam 0.5 mg tablet 0.5 mg PO .COMPLEX PRN tab 01/04/20 05/07/20 Unknown galcanezumab-gnlm 120 mg/mL 120 mg SQ MONTHLY 30 Days #1 ml 01/04/20 05/07/20 Unknown subcutaneous pen injector rizatriptan 10 mg tablet 10 mg PO .COMPLEX PRN 90 Days #27 01/04/20 05/07/20 Unknown tab sumatriptan succinate 6 mg/0.5 mL 6 mg SUBCUT .COMPLEX PRN #1 ml 03/18/20 05/07/20 Unknown subcutaneous pen injector gabapentin 800 mg tablet 800 mg PO TID #90 tab 04/10/20 05/07/20 Unknown topiramate 100 mg capsule 100 mg PO DAILY 90 Days #90 ea 04/10/20 05/07/20 Unknown sprinkle,extended release 24 hr buspirone 30 mg PO HS 04/16/20 05/07/20 Unknown chlorpromazine 10 mg PO HS 04/16/20 05/07/20 Unknown trazodone 50 mg PO HS 04/16/20 05/07/20 Unknown promethazine 25 mg tablet 25 mg PO BID PRN #60 tab 04/25/20 05/07/20 Unknown tramadol 50 mg tablet 50 mg PO .COMPLEX PRN #20 tab 04/29/20 05/07/20 Unknown tizanidine 4 mg tablet 4 mg PO QID PRN #90 tab 05/01/20 05/07/20 Unknown Active Medications Generic Name Dose Route Start Last Admin Trade Name Freq PRN Reason Stop Dose Admin Acetaminophen 1,000 mg 05/08/20 02:55 05/08/20 09:24 Acetaminophen 1000 Mg/100 Ml Iv IV 05/11/20 02:54 1,000 mg Q8 PRN Administration Mild Pain Piperacillin Sod/Tazobactam 115 mls @ 28.75 mls/hr 05/08/20 14:00 05/08/20 20:55 Sod 3.375 gm/ Dextrose IV 05/18/20 13:59 28.8 mls/hr Q8H NEELA Administration Protocol Lactated Ringer's 1,000 mls @ 250 mls/hr 05/08/20 11:00 05/08/20 19:54 Lr IV 06/07/20 10:59 250 mls/hr .Q4H NEELA Administration Heparin Sodium/Dextrose 25,000 units in 500 mls @ 25 mls/hr 05/08/20 13:00 05/08/20 13:54 Heparin Sodium/Dextrose IV 06/07/20 12:59 1,250 units/hr .Q20H NEELA 25 mls/hr Administration Protocol 1,250 UNITS/HR Ondansetron HCl 4 mg 05/08/20 02:25 05/08/20 08:04 Ondansetron Inj 2 Mg/Ml 2 Ml Vial IV 06/07/20 02:24 4 mg Q6H PRN Administration Nausea Sumatriptan Succinate 6 mg 05/08/20 17:25 05/08/20 20:55 Sumatriptan Succinate 6 Mg/0.5 Ml Vial SQ 06/07/20 17:24 6 mg UD PRN Administration Migraine Headache Topiramate 100 mg 05/08/20 11:00 05/08/20 11:13 Topiramate 100 Mg Tab PO 06/07/20 10:59 100 mg QAM NEELA Administration Venlafaxine HCl 75 mg 05/08/20 21:00 05/08/20 20:52 Venlafaxine Hcl Xr 75 Mg Capxr PO 06/07/20 20:59 75 mg HS NEELA Administration Past Medical History Medical History Acute pancreatitis Depression (09/09/12) Diabetes History of uterine fibroid Hyperlipidemia Hypertension Migraine (09/09/12) Pancreatic duct stricture Panic attack (09/09/12) PMB (postmenopausal bleeding) Past Family History Family History Sister Rheumatoid arthritis Steatorrhea Mother Hypertension Father Parkinson disease Denies family history of Ovarian cancer Prostate cancer Myocardial infarction Breast cancer Colorectal cancer Past Surgical History Surgical History History 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 History of laparoscopic cholecystectomy S/P surgical removal of pilonidal cyst Social History Smoking Status: Current every day smoker tobacco type: cigarettes Smoking cigarettes per day: 2 Hx Alcohol Use: No Hx Substance Use: No substance use type: does not use Physical Exam Vital Signs Last Vital Signs Temp 36.8 C 05/08/20 15:52 Pulse 72 01/20/21 15:52 Resp 18 05/08/20 15:52 BP 159/94 H 05/08/20 15:52 Pulse Ox 97 05/08/20 15:52 Testing Laboratory Results 05/07/20 21:01 05/08/20 07:33 Urine Color Yellow 05/07/20 22:45 Urine Appearance Clear (Clear) 05/07/20 22:45 Urine pH 6.0 (4.5-7.5) 05/07/20 22:45 Ur Specific [place] 1.034 (1.000-1.030) H 05/07/20 22:45 Urine Protein Negative (Negative) 05/07/20 22:45 Urine Glucose (UA) Negative (Negative) 05/07/20 22:45 Urine Ketones Negative (Negative) 05/07/20 22:45 Urine Nitrite Negative (Negative) 05/07/20 22:45 Ur Leukocyte Esterase 2+ (Negative) H 05/07/20 22:45 Urine WBC (Auto) >30 /hpf (0-5) H 05/07/20 22:45 Urine RBC (Auto) 5-10 /hpf (0-4) H 05/07/20 22:45 U Hyaline Cast (Auto) 1-5 /lpf (0-5) 05/07/20 22:45 U Epithel Cells (Auto) >30 /lpf (0-5) H 05/07/20 22:45 Urine Bacteria (Auto) Negative (Negative) 05/07/20 22:45 05/08/20 - COVID neg Electrocardiogram Date: 04/20/20 Findings: + SB @ (52) Nonspecific ST abnormality Abnormal ECG When compared with ECG of 16-APR-2020 19:21, Vent. rate has decreased BY 47 BPM Non-specific change in ST segment in Inferior leads ST no longer depressed in Anterior leads
[2020-05-08] MEDS: VENLAFAXINE HCL XR 75 MG CAPXR PO SCH (20:52)
[2020-05-08] MEDS: SUMAtriptan succinate 6 MG/0.5 ML VIAL SQ PRN (20:55)
[2020-05-08] MEDS ORDERED: VENLAFAXINE HCL 37.5 MG TAB PO SCH (21:00)
[2020-05-08 22:40] LABS: Partial Thromboplastin Ratio 2.2
[2020-05-08 22:54] LABS: Partial Thromboplastin Time 61.8 Seconds (21.0-31.0)
--- NOTE | 2020-05-09 01:00 | Billing Data ---
Date of Service May 09, 2020 Coding Level of Care Code 50151 OBS Care - Level 3
[2020-05-09] MEDS ORDERED: MoRPHine SULFATE 2 MG/ML CARP IV PRN (01:34)
[2020-05-09] MEDS: ACETAMINOPHEN 1000 MG/100 ML IV IV PRN ×2 (01:37→19:41)
[2020-05-09] MEDS: LACTATED RINGER'S 1,000 ML IV SCH ×5 (03:56→21:12)
[2020-05-09] MEDS: PIPERACILLIN/TAZOBACTAM 3.375 GM in DEXTROSE 5% 100 ML IV SCH ×3 (05:32→21:11)
[2020-05-09 07:36] LABS: Hematocrit (blood only) 38.9 % (37-47); Hemoglobin 13.3 g/dL (12.0-16.0); Mean Corpuscular Hemoglobin 28.9 pg (25-34); Mean Corpuscular Hgb Conc 34.2 g/dL (32-36); Mean Corpuscular Volume 84.6 fL (80-100); Mean Platelet Volume 10.7 fL (7.4-10.4); Platelet Count 204 K/uL (130-400); RDW Coefficient of Variation 13.5 % (11.5-14.5); RDW Standard Deviation 41.2 fL (36.4-46.3); White Blood Count 5.86 K/uL (4.8-10.8)
[2020-05-09 07:53] LABS: BUN Creatinine Ratio 5.3 (10-20); Calcium 9.1 mg/dl (8.5-10.1); Creatinine Clr Calc Pharmacy 97.1 ml/min; Est GFR (African American) 109.9; Est GFR (Non-African American) 94.8; Potassium 3.4 mmol/L (3.5-5.1)
[2020-05-09] MEDS: TOPIRAMATE 100 MG TAB PO SCH (08:09)
[2020-05-09] MEDS ORDERED: VENLAFAXINE HCL XR 150 MG CAPXR PO SCH (09:00)
[2020-05-09] MEDS ORDERED: fentaNYL citrate 100 MCG/2 ML VIAL ONE ×2 (10:02→11:46)
[2020-05-09] MEDS ORDERED: PROPOFOL IV EMULSION 10 MG/ML 20 ML VIAL IV ONE (10:03)
[2020-05-09] MEDS ORDERED: LIDOCAINE HCL 2% 2 ML VIAL/AMP(20MG/ML) INFIL ONE (10:03)
[2020-05-09] MEDS ORDERED: ONDANSETRON INJ 2 MG/ML 2 ML VIAL ONE (10:03)
--- NOTE | 2020-05-09 10:03 | Gastroenterology Progress Note ---
Date of Service May 09, 2020 Assessment & Plan (1) Pancreatitis, acute: Acute pancratitis pain improved. Will decrease IV fluids to 175/hr. After EUS today, can have clear liquids po. Present on Admission?: Yes (2) Superior mesenteric artery thrombosis: Resume anticoagulation after EUS Present on Admission?: Yes (3) Pancreatic duct stricture: Keep the pt scheduled for OP EUS in May as there should be less inflammation at that time, thus landmarks will be more visible and thrombus can be more carefully assessed at that time. Present on Admission?: Yes Admission and Anticipated Discharge Date Admission Date: May 08, 2020 Supervising Physician Co-Signing Physician Notes I performed a history and physical examination of the patient today, including specifically on physical exam - soft abdomen. I have discussed the patient's management with the advanced practitioner. Please refer to the nurse rajni hyman's note for the documented findings and plan of care. EGD/EUS Subjective 60, female pancreatitis in March in pt with distant cholecystectomy, imaging at that time with a pancreatic duct stricture. Admitted on 05/07 with recurrent acute pancreatitis. Now with suggestion a partially occluding SMV thrombosis and possible pancreatic necrosis on CT. Today, feeling better, less epigastric pain. Review of Systems Review of Systems: ROS: Gen: No c/o headaches or weakness today; denies fatigue Eyes: No eye redness, or pain, no recent vision changes Resp: No SOB, no cough Cardio: No palpitations/irregular beats, no chest pain GI: + acute on chronic abd pain - much improved today, nausea/vomiting resolved : Denies pain on urination Skin: No jaundice, itching or new rashes Constitutional: +weakness, weight loss, denies fevers Physical Exam Constitutional: WD/WN, vitals as above + acute distress (appears uncomfortable mentioning headache; holding cool cloth to forhead) and + overweight Eyes: PERRL, conjunctivae normal, anicteric sclerae ENMT: external ear and nose normal, oropharynx normal Neck: trachea midline, no thyromegaly Respiratory: normal respiratory effort, lungs clear to auscultation Cardiovascular: RRR, no murmur, no edema Gastrointestinal (Abdomen): Inspection/Auscultation: abdomen not distended Percussion/Palpation: + abdomen tender (very tender over the upper abd) and abdomen soft Musculoskeletal: no cyanosis or clubbing, extremities motor strength 5/5 Skin: no rashes, warm and dry Neurologic: PERRL, EOMI, accommodation nl, no face palsy, no dysarthria Psychiatric: A+Ox3, euthymic affect Lymphatic: no cervical or axillary lymphadenopathy Results & Data ([facility]) Vital Signs (Past 12 Hours) Vital Signs Temp Pulse Resp BP Pulse Ox 05/09/20 09:56 36.7 C 73 18 150/94 H 95 05/09/20 07:15 36.8 C 75 16 142/86 H 95 05/08/20 23:30 37.0 C 76 16 145/80 H 95 Laboratory Results WBC 5, Hb 13, Hct 38.9, Plats 204, BUN 142, K 3.4, Ch 119, CO2 25, BUN 4, Cr 0.7, glucose [address] w IV contrast: 1. Persistent findings of acute pancreatitis. There is increased heterogeneity with decreased enhancement of the uncinate process of the pancreas which may be secondary to worsening interstitial edema versus developing pancreatic necrosis. No peripancreatic fluid collection identified. This finding was called/faxed to the floor at time of dictation. 2. Cholecystectomy. No biliary or pancreatic ductal dilation. 3. Mixing artifact versus partially occlusive thrombus of the superior mesenteric vein. The portal vein is patent. 4. No bowel obstruction or bowel wall thickening. 5. Small hiatal hernia. 6. Nonobstructing left nephrolithiasis. (1) Pancreatitis, acute Acute pancreatitis complication: no infection or necrosis Pancreatitis type: unspecified pancreatitis type Qualified Code(s): K85.90 - Acute pancreatitis without necrosis or infection, unspecified
[2020-05-09] MEDS ORDERED: SUCCINYLCHOLINE CHLORIDE 20 MG/ML 10 ML VIAL IV ONE (10:06)
[2020-05-09] MEDS ORDERED: ROCURONIUM BROMIDE 10 MG/ML 5 ML VIAL IV ONE (10:06)
[2020-05-09] MEDS ORDERED: ONDANSETRON INJ 2 MG/ML 2 ML VIAL IV PRN (10:30)
[2020-05-09] MEDS ORDERED: ePHEDrine sulfate 50 MG/ML AMP IV PRN (10:30)
[2020-05-09] MEDS ORDERED: ATROPINE SULFATE 0.1 MG/ML 10ML SYR IV PRN (10:30)
[2020-05-09] MEDS ORDERED: fentaNYL citrate 100 MCG/2 ML VIAL IV PRN (10:30)
--- NOTE | 2020-05-09 10:41 | History & Physical Bridge Note ---
Date of Service May 09, 2020 History & Physical Bridge Note I have examined the patient, reviewed the History & Physical and in the interval since the performance of the History & Physical I have noted the following changes of clinical significance: no changes noted EGD/EUS today
--- NOTE | 2020-05-09 12:18 | Operative Report ---
Post Operative Report Pre & Post Diagnosis Operation Date: 05/09/20 09:10 Pre-Op Diagnosis: vomiting, nausea Post-Op Diagnosis: vomiting, nausea I identified the patient and participated in the time-out.: Yes Procedure Operation Date: 05/09/20 09:10 Actual Procedures p Upper Endoscopic Ultrasonography - Jason Hill MD Surgeon Jason Hill MD Meeting/Event Planner None Estimated Blood Loss 0 Findings See Below (Pancreatitis) Specimens FNA Description of Procedure EUS I attest to the content of the Intraoperative Record and any orders documented therein. Any exceptions are noted below.
--- NOTE | 2020-05-09 12:26 | GI REPORT ---
Patient Name: Yaquelin Trinh Procedure Date: 05/09/2020 11:04 AM Date of : 1960 Admit Type: Inpatient Age: 60 Gender: Female Attending MD: Jason Hill MD Procedure: Upper GI endoscopy Providers: Jason Hill MD Referring MD: Grady Myers Indications: Epigastric abdominal pain Medicines: General Anesthesia Complications: No immediate complications. Estimated Blood Loss: Estimated blood loss: none. Procedure: Pre-Anesthesia Assessment: - Prior to the procedure, a History and Physical was performed, and patient medications, allergies and sensitivities were reviewed. The patient's tolerance of previous anesthesia was reviewed. - The risks and benefits of the procedure and the sedation options and risks were discussed with the patient. All questions were answered and informed consent was obtained. - Patient identification and proposed procedure were verified prior to the procedure by the physician and the nurse. The procedure was verified in the procedure room. - Pre-procedure physical examination revealed no contraindications to sedation. After obtaining informed consent, the endoscope was passed under direct vision. Throughout the procedure, the patient's blood pressure, pulse, and oxygen saturations were monitored continuously. The Endoscope was introduced through the mouth, and advanced to the second part of duodenum. The upper GI endoscopy was accomplished without difficulty. The patient tolerated the procedure well. Findings: LA Grade B (one or more mucosal breaks greater than 5 mm, not extending between the tops of two mucosal folds) esophagitis with no bleeding was found at the gastroesophageal junction. Mild inflammation characterized by erosions and erythema was found in the gastric body. The duodenal bulb and second portion of the duodenum were normal. Impression: - Esophagitis. - Gastritis. - Normal duodenal bulb and second portion of the duodenum. Recommendation: - Follow an antireflux regimen. - Use Protonix (pantoprazole) 40 mg PO daily for 3 months. - Perform an upper endoscopic ultrasound (UEUS) today. Jason Hill MD 05/09/2020 12:26:05 PM This report has been signed electronically. Note Initiated On: 05/09/2020 11:04 AM Number of Addenda: 0 I attest to the content of the Intraoperative Record and orders documented therein, exceptions below {[id number]}
--- NOTE | 2020-05-09 12:53 | Anesthesiology Progress Note ---
Date of Service May 09, 2020 Anesthesia Post Procedure Vital Signs Vital Signs: Temp Pulse Pulse Resp BP BP Pulse Ox 05/09/20 12:40 81 17 155/96 H 98 05/09/20 12:30 75 16 159/83 H 99 05/09/20 12:25 141/81 H 05/09/20 12:23 36.4 C L 91 H 16 147/104 H 100 05/09/20 09:56 36.7 C 73 18 150/94 H 95 05/09/20 07:15 36.8 C 75 16 142/86 H 95 05/08/20 23:30 37.0 C 76 16 145/80 H 95 05/08/20 15:52 36.8 C 72 18 159/94 H 97 Pain Intensity Abdomen: Pain Intensity: 4 Transfer of Care Handoff Completed per policy Notes Mental Status: alert / awake / arousable and participated in evaluation Patient Amnestic to Procedure: Yes Nausea / Vomiting: adequately controlled Pain: adequately controlled Airway Patency, RR, SpO2: stable & adequate BP & HR: stable & adequate Hydration State: stable & adequate Anesthetic Complications: no major complications apparent and Pt Satisfied with anesthetic care
--- NOTE | 2020-05-09 13:19 | GI REPORT ---
Patient Name: Yaquelin Trinh Procedure Date: 05/09/2020 11:02 AM Date of : 1960 Admit Type: Inpatient Age: 60 Gender: Female Attending MD: Jason Hill MD Procedure: Upper EUS Providers: Jason Hill MD Referring MD: Grady Myers Indications: Dilated pancreatic duct on MRCP Medicines: General Anesthesia Complications: No immediate complications. Estimated Blood Loss: Estimated blood loss: none. Procedure: Pre-Anesthesia Assessment: - Prior to the procedure, a History and Physical was performed, and patient medications, allergies and sensitivities were reviewed. The patient's tolerance of previous anesthesia was reviewed. - The risks and benefits of the procedure and the sedation options and risks were discussed with the patient. All questions were answered and informed consent was obtained. - Patient identification and proposed procedure were verified prior to the procedure by the physician and the nurse. The procedure was verified in the procedure room. - Pre-procedure physical examination revealed no contraindications to sedation. After obtaining informed consent, the endoscope was passed under direct vision. Throughout the procedure, the patient's blood pressure, pulse, and oxygen saturations were monitored continuously. The Endosonoscope was introduced through the mouth, and advanced to the second part of duodenum. The upper EUS was accomplished without difficulty. The patient tolerated the procedure well. Findings: ENDOSONOGRAPHIC FINDING: : There was no sign of significant endosonographic abnormality in the ampulla. No masses were identified. There was dilation in the common bile duct which measured up to 8 mm. No stones or sludge. Evidence of a previous cholecystectomy was identified endosonographically. There was no sign of significant endosonographic abnormality in the visualized portion of the liver. There was no sign of significant endosonographic abnormality in the visualized portion of the left adrenal gland. There was no sign of significant endosonographic abnormality involving the celiac trunk. A few enlarged lymph nodes were visualized in the lala hepatis region. The largest measured 14 mm in maximal cross-sectional diameter. The nodes were triangular, hypoechoic and had well defined margins. Fine needle aspiration for cytology was performed. Color Doppler imaging was utilized prior to needle puncture to confirm a lack of significant vascular structures within the needle path. Two passes were made with the 25 gauge needle using a transduodenal approach. A stylet was used. A last repairer was present and performed a preliminary cytologic examination. The cellularity of the specimen was adequate. Final cytology results are pending. Verification of patient identification for the specimen was done by the physician and nurse using the patient's name and date. Pancreatic parenchymal abnormalities were noted in the entire pancreas. These consisted of hyperechoic strands, hyperechoic foci and lobularity. The pancreatic duct had a dilated endosonographic appearance and had hyperechoic tran in the entire pancreas. The pancreatic duct measured up to 4 mm in diameter. A round hypodense area with surrounding parynchymal changes were identified in the uncinate process of the pancreas. This measured 11 mm by 11 mm in maximal cross-sectional diameter. The endosonographic borders were poorly-defined. Fine needle aspiration for cytology was performed. Color Doppler imaging was utilized prior to needle puncture to confirm a lack of significant vascular structures within the needle path. Two passes were made with the 25 gauge needle using a transduodenal approach. A stylet was used. A last repairer was present and performed a preliminary cytologic examination. The cellularity of the specimen was adequate. Final cytology results are pending. Impression: - There was dilation in the common bile duct which measured up to 8 mm. No stones or sludge. s/p cholecystectomy. - Pancreatic parenchymal abnormalities consisting of hyperechoic strands, hyperechoic foci and lobularity were noted in the entire pancreas. PD measured up to 4 mm. An ill defined, small hypodense area in the uncinate process likely related to ongoing pancreatitis/ necrosis, Fine needle aspiration performed. - A few enlarged lymph nodes were visualized in the lala hepatis region, likely inflammatory changes. Fine needle aspiration performed. Recommendation: - [facility] care. - Await cytology results. - Obtain CT scan abdomen in 6 weeks. - Keep the upcoming appointment for ERCP as OP to evaluate for suspected PD stricture. Jason Hill MD 05/09/2020 1:19:13 PM This report has been signed electronically. Note Initiated On: 05/09/2020 11:02 AM Number of Addenda: 0 I attest to the content of the Intraoperative Record and orders documented therein, exceptions below {[id number]}
[2020-05-09] MEDS: POTASSIUM CHLORIDE / WTR 10 MEQ/100 ML PLCT IV SCH ×2 (13:35→15:55)
[2020-05-09] MEDS: PANTOprazole 40 MG TAB PO SCH (14:06)
[2020-05-09] MEDS: SUMAtriptan succinate 6 MG/0.5 ML VIAL SQ PRN (16:17)
[2020-05-09] MEDS ORDERED: LOSARTAN POTASSIUM 50 MG TAB PO ONE (16:58)
--- NOTE | 2020-05-09 17:52 | Hospitalist Progress Note ---
Date of Service May 09, 2020 Assessment & Plan (1) Pancreatitis, acute: CT showing pancreatitis with possible necrosis Continue IVF EUS 05/09 - esophagitis, gastritis, recommend Protonix daily for 3 months (2) Pancreatic duct stricture: Plan for EUS tomorrow to r/o mass. F/U EUS scheduled outpatient in May (3) Superior mesenteric vein thrombosis: Initial read on CT with artifact vs. partially occlusive thrombus of the superior mesenteric vein. GI discussed with radiology (Dr. Toure) with opinion that no better imaging available to r/o or confirm the SMV. Continue heparin - will need to transition to oral anticoagulation before discharge Will need to continue with anticoagulation at least until May when a follow up EUS can be performed and hopefully the inflammation is reduced enough that a better visual of the venous system can be attained. (4) Chronic migraine: Continue home topiramate scheduled, hold triptans for now for elevated blood pressure. Will dc phenergan and restart antipsychotic tomorrow (5) Liver nodule: - two nodules incidentally noted on CT A/p; appeared unchanged from study in 2016 - no acute management (6) Renal stone: - 10 mm stone noted incidentally in R kidney on CT of abdomen - no acute management (7) Hypertension: Stable Continue home losartan when taking po (8) Hypokalemia: Potassium 3.4 - replaced BMP am (9) Hyperlipidemia: (10) Diabetes: type II Well controlled. Last QmeB6V=2.2 on 03/23/20. Patient's HgBA1C has been below 6.5 since 11/2013 - Hold home Metformin - patient did not require any insulin during last admission - BG checks ACHS (11) Insomnia: continue home trazadone when taking po (12) Depression with anxiety: resume home venlafaxine, chlorpromazine, and buspar while npo Admission and Anticipated Discharge Date Admission Date: May 08, 2020 Subjective Ms. Trinh has a migraine again today. She has some abdominal tenderness. No nausea or vomiting. She says she feels hungry. Sister Chelsey updated over the phone Review of Systems Constitutional: no fever, no chills and no body aches Cardiovascular: no chest pain and no palpitations Gastrointestinal: no abdominal pain, no nausea and no vomiting Genitourinary: no dysuria and no urinary hesitancy Musculoskeletal: no back pain and no joint pain Integumentary: no rash Physical Exam Physical Exam: General: no distress Eyes: normal inspection, PERLL Respiratory: chest non tender, clear to auscultation, normal breath sounds, no respiratory distress, no accessory muscle use Cardiac: regular rate and rhythm, no rub or gallop, no murmur, no edema, no jvd GI/: active bowel sounds, no abd pain or tenderness, soft, non distended Extremities: normal range of motion, normal strength, non tender Neuro/Psych: alert and oriented x 3, normal mood and affect Skin: normal color, dry Results & Data Results & Data ([facility]) Vital Signs (Past 12 Hours) Vital Signs Temp Pulse Pulse Resp BP Pulse Ox Pulse Ox 05/09/20 16:58 163/92 H 05/09/20 16:53 95 05/09/20 16:40 36.4 C L 78 18 181/106 H 95 05/09/20 15:37 36.3 C L 76 19 170/91 H 96 05/09/20 14:31 82 18 156/80 H 96 05/09/20 13:49 36.8 C 80 14 157/85 H 95 05/09/20 13:19 78 14 154/80 H 93 05/09/20 13:05 76 17 155/97 H 93 05/09/20 13:00 37.1 C 74 16 152/97 H 92 05/09/20 12:50 78 13 149/69 H 93 05/09/20 12:40 81 17 155/96 H 98 05/09/20 12:30 75 16 159/83 H 99 05/09/20 12:25 141/81 H 05/09/20 12:23 36.4 C L 91 H 16 147/104 H 100 05/09/20 09:56 36.7 C 73 18 150/94 H 95 05/09/20 07:15 36.8 C 75 16 142/86 H 95 PG Care Time/CCT Total # of Minutes Spent Total Time Spent with Patient: Total time spent is greater than 50% in coordination of care (as documented) at patient's floor/unit and/or counseling patient: Coding Level of Care Code 18375 Subseq Hosp Care Lvl 3 Diagnoses Pancreatitis, acute K85.90 Pancreatitis type: unspecified pancreatitis type Acute pancreatitis complication: no infection or necrosis Pancreatic duct stricture K86.89 Superior mesenteric vein thrombosis K55.069 Chronic migraine G43.709 Liver nodule K76.89 Renal stone N20.0 Hypertension I10 Hypertension type: essential hypertension Hypokalemia E87.6 Hyperlipidemia E78.5 Hyperlipidemia type: unspecified Diabetes E11.9 Diabetes mellitus type: type 2 Diabetes mellitus detention insulin use: without exterminator helper use Diabetes mellitus complication status: without complication Insomnia G47.00 Insomnia type: unspecified Depression with anxiety F41.8 (1) Hypertension Hypertension type: essential hypertension Qualified Code(s): I10 - Essential (primary) hypertension (2) Hyperlipidemia Hyperlipidemia type: unspecified Qualified Code(s): E78.5 - Hyperlipidemia, unspecified (3) Diabetes Diabetes mellitus type: type 2 Diabetes mellitus detention insulin use: without exterminator helper use Diabetes mellitus complication status: without complication Qualified Code(s): E11.9 - Type 2 diabetes mellitus without complications (4) Insomnia Insomnia type: unspecified Qualified Code(s): G47.00 - Insomnia, unspecified (5) Pancreatitis, acute Pancreatitis type: unspecified pancreatitis type Acute pancreatitis complication: no infection or necrosis Qualified Code(s): K85.90 - Acute pancreatitis without necrosis or infection, unspecified
[2020-05-09] MEDS ORDERED: [UNRECOGNIZED DRUG - OTHER] SCH (18:00)
[2020-05-09] MEDS: HEPARIN SODIUM/DEXTROSE 25,000 UNITS/500 ML BAG IV SCH (19:10)
[2020-05-09] MEDS: HYDROmorphone INJ 0.5 MG/0.5 ML SYR IV PRN ×2 (20:13→23:51)
[2020-05-09] MEDS ORDERED: chlorproMAZINE HCL 10 MG TAB PO SCH (21:00)
[2020-05-09] MEDS ORDERED: traZODone HCL 50 MG TAB PO SCH (21:00)
[2020-05-09] MEDS: busPIRone 15 MG TAB PO SCH (21:08)
[2020-05-09] MEDS: VENLAFAXINE HCL XR 75 MG CAPXR PO SCH (21:08)
[2020-05-09] MEDS: FERROUS SULFATE 325 MG TAB PO SCH (21:08)
[2020-05-09] MEDS: GABAPENTIN 800 MG TAB PO SCH (21:08)
[2020-05-10 00:12] LABS: Partial Thromboplastin Ratio 1.8
[2020-05-10 00:14] LABS: Partial Thromboplastin Time 50.4 Seconds (21.0-31.0)
[2020-05-10] MEDS: LACTATED RINGER'S 1,000 ML IV SCH ×6 (00:35→23:57)
[2020-05-10] MEDS: HEPARIN SODIUM/DEXTROSE 25,000 UNITS/500 ML BAG IV SCH ×2 (03:54→23:17)
[2020-05-10] MEDS: HYDROmorphone INJ 0.5 MG/0.5 ML SYR IV PRN ×5 (05:33→22:44)
[2020-05-10] MEDS: PIPERACILLIN/TAZOBACTAM 3.375 GM in DEXTROSE 5% 100 ML IV SCH (05:34)
[2020-05-10] MEDS ORDERED: COUGH DROP (SUGAR FREE) LOZ 24 LOZ/1 BOX BUCCAL PRN (05:47)
[2020-05-10 06:56] LABS: Basophils # (auto) 0.02 K/uL (0-0.2); Basophils % (auto) 0.5 %; Eosinophils # (auto) 0.26 K/uL (0-0.5); Eosinophils % (auto) 6.5 %; Hematocrit (blood only) 33.8 % (37-47); Hemoglobin 11.5 g/dL (12.0-16.0); Lymphocytes # (auto) 0.93 K/uL (1.2-3.4); Lymphocytes % (auto) 23.3 %; Mean Corpuscular Hemoglobin 28.7 pg (25-34); Mean Corpuscular Volume 84.3 fL (80-100); Mean Platelet Volume 10.5 fL (7.4-10.4); Monocytes % (auto) 7.5 %; Neutrophils # (auto) 2.49 K/uL (1.4-6.5); Neutrophils % (auto) 62.2 %; Platelet Count 155 K/uL (130-400); RDW Coefficient of Variation 13.4 % (11.5-14.5); RDW Standard Deviation 40.5 fL (36.4-46.3); Red Blood Count 4.01 M/uL (4.2-5.4)
[2020-05-10 07:16] LABS: Partial Thromboplastin Ratio 2.1
[2020-05-10 07:32] LABS: Albumin Level 3.2 gm/dl (3.4-5.0); BUN Creatinine Ratio 3.9 (10-20); Calcium 8.6 mg/dl (8.5-10.1); Creatinine Clr Calc Pharmacy 115.2 ml/min; Est GFR (African American) 116.3; Est GFR (Non-African American) 100.3; Partial Thromboplastin Time 58.6 Seconds (21.0-31.0); Potassium 3.1 mmol/L (3.5-5.1)
[2020-05-10 07:36] LABS: Albumin Globulin Ratio 1.1 (0.9-2); Bilirubin,Total 0.4 mg/dl (0.2-1); Globulin 2.8 gm/dl (2.5-4.0)
[2020-05-10] MEDS: VENLAFAXINE HCL XR 150 MG CAPXR PO SCH (08:18)
[2020-05-10] MEDS: FERROUS SULFATE 325 MG TAB PO SCH ×2 (08:18→20:21)
[2020-05-10] MEDS: GABAPENTIN 800 MG TAB PO SCH ×3 (08:18→20:21)
[2020-05-10] MEDS: ATORVASTATIN 40 MG TAB PO SCH (08:19)
[2020-05-10] MEDS: OXYBUTYNIN CHLORIDE XL 5 MG TABCR PO SCH (08:19)
[2020-05-10] MEDS: VENLAFAXINE HCL XR 75 MG CAPXR PO SCH (08:19)
[2020-05-10] MEDS: PANTOprazole 40 MG TAB PO SCH (08:19)
[2020-05-10] MEDS: MULTIVITAMIN TAB PO SCH (08:19)
[2020-05-10] MEDS: TOPIRAMATE 100 MG TAB PO SCH (08:20)
[2020-05-10] MEDS: ACETAMINOPHEN 1000 MG/100 ML IV IV PRN (08:30)
[2020-05-10] MEDS: LOSARTAN POTASSIUM 25 MG TAB PO SCH (08:54)
[2020-05-10] MEDS ORDERED: ERGOCALCIFEROL 50,000 UNITS 1250 MCG CAP PO SCH (09:00)
--- NOTE | 2020-05-10 09:40 | Anesthesiology Progress Note ---
Date of Service May 10, 2020 Anesthesia Post Procedure Vital Signs Vital Signs: Temp Pulse Pulse Resp BP Pulse Ox Pulse Ox 05/10/20 07:38 36.8 C 73 16 146/90 H 95 05/09/20 22:52 36.6 C 66 16 144/83 H 94 05/09/20 19:16 37.1 C 67 18 166/90 H 96 05/09/20 16:58 163/92 H 05/09/20 16:53 95 05/09/20 16:40 36.4 C L 78 18 181/106 H 95 05/09/20 15:37 36.3 C L 76 19 170/91 H 96 05/09/20 14:31 82 18 156/80 H 96 05/09/20 13:49 36.8 C 80 14 157/85 H 95 05/09/20 13:19 78 14 154/80 H 93 05/09/20 13:05 76 17 155/97 H 93 05/09/20 13:00 37.1 C 74 16 152/97 H 92 05/09/20 12:50 78 13 149/69 H 93 05/09/20 12:40 81 17 155/96 H 98 05/09/20 12:30 75 16 159/83 H 99 05/09/20 12:25 141/81 H 05/09/20 12:23 36.4 C L 91 H 16 147/104 H 100 05/09/20 09:56 36.7 C 73 18 150/94 H 95 Pain Intensity Abdomen: Pain Intensity: 2 Notes Mental Status: alert / awake / arousable and participated in evaluation Patient Amnestic to Procedure: Yes Nausea / Vomiting: adequately controlled Pain: adequately controlled Airway Patency, RR, SpO2: stable & adequate BP & HR: stable & adequate Hydration State: stable & adequate Anesthetic Complications: no major complications apparent and Pt Satisfied with anesthetic care
--- NOTE | 2020-05-10 12:01 | Gastroenterology Progress Note ---
Date of Service May 10, 2020 Assessment & Plan (1) Pancreatitis, acute: Acute pancreatitis improving. Will decrease IV fluids to 125/hr. Adv diet. Anticoagulation of possible partially occluding SMV thrombus. Small necrotic area seen on EUS - would continue antibiotics x total 7 days but not likely to be a complicating finding. FNA is pending. With cause of initial pancreatitis in March unclear, pt still needs OP EUS as previously arranged for late May to assess landmarks after inflammation has decreased. OK for DC from GI perspective (2) Superior mesenteric artery thrombosis: Anticoagulation. (3) Pancreatic duct stricture: Keep the pt scheduled for OP EUS in May. Admission and Anticipated Discharge Date Admission Date: May 10, 2020 Supervising Physician Co-Signing Physician Notes I performed a history and physical examination of the patient today, including specifically on physical exam - soft abdomen. I have discussed the patient's management with the advanced practitioner. Please refer to the nurse practitio jasmin's note for the documented findings and plan of care. Subjective 60 female, acute pancreatitis, unknown etiology in Mar 2020 (pancreatic duct stricture? no hx of alcohol and is post cholecystectomy w/o elevated LFTs or bile duct obstruction on imaging - though f/u EUS pending. ) Recurrence this week, with possible partially occluding SMV thrombus. Review of Systems Review of Systems: ROS: Gen: No c/o headaches or weakness today; denies fatigue Eyes: No eye redness, or pain, no recent vision changes Resp: No SOB, no cough Cardio: No palpitations/irregular beats, no chest pain GI: + acute on chronic abd pain - much improved today, nausea/vomiting resolved : Denies pain on urination Skin: No jaundice, itching or new rashes Constitutional: +weakness, weight loss, denies fevers Physical Exam Constitutional: WD/WN, vitals as above + overweight; no acute distress Appears well. Sitting up in bed, eating full liquid breakfast this morning. Eyes: PERRL, conjunctivae normal, anicteric sclerae ENMT: external ear and nose normal, oropharynx normal Neck: trachea midline, no thyromegaly Respiratory: normal respiratory effort, lungs clear to auscultation Cardiovascular: RRR, no murmur, no edema Gastrointestinal (Abdomen): Inspection/Auscultation: abdomen not distended Percussion/Palpation: + abdomen tender (mldly tender over the upper abd) and abdomen soft Musculoskeletal: no cyanosis or clubbing, extremities motor strength 5/5 Skin: no rashes, warm and dry Neurologic: PERRL, EOMI, accommodation nl, no face palsy, no dysarthria Psychiatric: A+Ox3, euthymic affect Lymphatic: no cervical or axillary lymphadenopathy Results & Data ([facility]) Vital Signs (Past 12 Hours) Vital Signs Temp Pulse Resp BP Pulse Ox 05/10/20 07:38 36.8 C 73 16 146/90 H 95 Diagnostic Findings EUS 05/09/20: - There was dilation in the common bile duct which measured up to 8 mm. No stones or sludge. s/p cholecystectomy. - Pancreatic parenchymal abnormalities consisting of hyperechoic strands, hyperechoic foci and lobularity were noted in the entire pancreas. PD measured up to 4 mm. An ill defined, small hypodense area in the uncinate process likely related to ongoing pancreatitis/ necrosis, Fine needle aspiration performed. - A few enlarged lymph nodes were visualized in the lala hepatis region, likely inflammatory changes. Fine needle aspiration performed. CT abd/pelvis w IV contrast 05/06/20: 1. Persistent findings of acute pancreatitis. There is increased heterogeneity with decreased enhancement of the uncinate process of the pancreas which may be secondary to worsening interstitial edema versus developing pancreatic necrosis. No peripancreatic fluid collection identified. This finding was called/faxed to the floor at time of dictation. 2. Cholecystectomy. No biliary or pancreatic ductal dilation. 3. Mixing artifact versus partially occlusive thrombus of the superior mesenteric vein. The portal vein is patent. 4. No bowel obstruction or bowel wall thickening. 5. Small hiatal hernia. 6. Nonobstructing left nephrolithiasis. (1) Pancreatitis, acute Acute pancreatitis complication: no infection or necrosis Pancreatitis type: unspecified pancreatitis type Qualified Code(s): K85.90 - Acute pancreatitis without necrosis or infection, unspecified
[2020-05-10] MEDS ORDERED: POTASSIUM CHLORIDE CRTAB 20 MEQ TABCR PO ONE (12:15)
[2020-05-10] MEDS: MICONAZOLE NITRATE POWDER 43 GM EXT PRN (12:18)
--- NOTE | 2020-05-10 15:54 | Hospitalist Progress Note ---
Date of Service May 10, 2020 Assessment & Plan (1) Pancreatitis, acute: CT showing pancreatitis with possible necrosis Continue IVF - will decrease to 150 ml/hr from 250 ml/hr EUS 05/09 - esophagitis, gastritis, recommend Protonix daily for 3 months. Per GI, can discontinue abx GI ok wtih discharge when patient medically stable Ongoing abdominal pain - lactic 2.6 this afternoon, repeat pending. Discussed with attending, will recheck am and hold off on further imaging unless patient has a change in status. Currently patient is hemodynamically stable no fever, no leukocytosis (2) Pancreatic duct stricture: F/U EUS scheduled outpatient in May (3) Superior mesenteric vein thrombosis: Initial read on CT with artifact vs. partially occlusive thrombus of the superior mesenteric vein. GI discussed with radiology (Dr. Toure) with opinion that no better imaging available to r/o or confirm the SMV. Continue heparin - will need to transition to oral anticoagulation before discharge Will need to continue with anticoagulation at least until May when a follow up EUS can be performed and hopefully the inflammation is reduced enough that a better visual of the venous system can be attained. (4) Chronic migraine: Continue home topiramate scheduled, hold triptans for now for elevated blood pressure. Will dc phenergan as patient will restart antipsychotic (5) Liver nodule: - two nodules incidentally noted on CT A/p; appeared unchanged from study in 2016 - no acute management (6) Renal stone: - 10 mm stone noted incidentally in R kidney on CT of abdomen - no acute management (7) Hypertension: Stable Continue home losartan when taking po (8) Hypokalemia: Potassium 3.4 - replaced BMP am (9) Hyperlipidemia: (10) Diabetes: type II Well controlled. Last MobV9Z=0.2 on 03/23/20. Patient's HgBA1C has been below 6.5 since 11/2013 - Hold home Metformin - patient did not require any insulin during last admission - BG checks ACHS (11) Insomnia: will hold home trazadone for now - patient has a number of sedating medications in addition to dilaudid for pain control (12) Depression with anxiety: resume home venlafaxine, chlorpromazine, and buspar Admission and Anticipated Discharge Date Admission Date: May 10, 2020 Subjective Ms. Trinh is having 6/10 abdominal pain today. Her pain is not as bad as at admission, but worse than yesterday. She was able to tolerate her full liquid diet without nausea or vomiting. She is passing gas and having bowel movements. Her migraine has improved Review of Systems Constitutional: no fever, no chills and no body aches Respiratory: no cough and no dyspnea Cardiovascular: no chest pain and no palpitations Gastrointestinal: as per Subjective / HPI Genitourinary: no dysuria and no urinary hesitancy Musculoskeletal: no back pain and no joint pain Integumentary: no rash Physical Exam Physical Exam: General: no distress Eyes: normal inspection, PERLL Respiratory: chest non tender, clear to auscultation, normal breath sounds, no respiratory distress, no accessory muscle use Cardiac: regular rate and rhythm, no rub or gallop, no murmur, no edema, no jvd GI/: active bowel sounds, generalized abdominal tenderness, soft, non distended Extremities: normal range of motion, normal strength, non tender Neuro/Psych: alert and oriented x 3, normal mood and affect Skin: normal color, dry Results & Data Results & Data ([facility]) Vital Signs (Past 12 Hours) Vital Signs Temp Pulse Resp BP Pulse Ox 05/10/20 15:06 37.0 C 69 16 151/87 H 93 05/10/20 07:38 36.8 C 73 16 146/90 H 95 PG Care Time/CCT Total # of Minutes Spent Total Time Spent with Patient: Total time spent is greater than 50% in coordination of care (as documented) at patient's floor/unit and/or counseling patient: Coding Level of Care Code 73948 Subseq Hosp Care Lvl 3 Diagnoses Pancreatitis, acute K85.90 Pancreatitis type: unspecified pancreatitis type Acute pancreatitis complication: no infection or necrosis Pancreatic duct stricture K86.89 Superior mesenteric vein thrombosis K55.069 Chronic migraine G43.709 Liver nodule K76.89 Renal stone N20.0 Hypertension I10 Hypertension type: essential hypertension Hypokalemia E87.6 Hyperlipidemia E78.5 Hyperlipidemia type: unspecified Diabetes E11.9 Diabetes mellitus type: type 2 Diabetes mellitus correction insulin use: without correction use Diabetes mellitus complication status: without complication Insomnia G47.00 Insomnia type: unspecified Depression with anxiety F41.8 (1) Pancreatitis, acute Pancreatitis type: unspecified pancreatitis type Acute pancreatitis complication: no infection or necrosis Qualified Code(s): K85.90 - Acute pancreatitis without necrosis or infection, unspecified (2) Hypertension Hypertension type: essential hypertension Qualified Code(s): I10 - Essential (primary) hypertension (3) Hyperlipidemia Hyperlipidemia type: unspecified Qualified Code(s): E78.5 - Hyperlipidemia, unspecified (4) Diabetes Diabetes mellitus type: type 2 Diabetes mellitus terminal manager insulin use: without terminal manager use Diabetes mellitus complication status: without complication Qualified Code(s): E11.9 - Type 2 diabetes mellitus without complications (5) Insomnia Insomnia type: unspecified Qualified Code(s): G47.00 - Insomnia, unspecified
[2020-05-10] MEDS ORDERED: CIPROFLOXACIN 500 MG TAB PO SCH (17:00)
[2020-05-10] MEDS: DOCUSATE SODIUM 100 MG CAP PO SCH (17:25)
[2020-05-10] MEDS: chlorproMAZINE HCL 10 MG TAB PO SCH (20:19)
[2020-05-10] MEDS: busPIRone 15 MG TAB PO SCH (20:21)
[2020-05-10] MEDS: clonazePAM 0.5 MG TAB PO PRN (20:24)
[2020-05-11] MEDS: HYDROmorphone INJ 0.5 MG/0.5 ML SYR IV PRN ×5 (05:30→22:36)
[2020-05-11] MEDS: LACTATED RINGER'S 1,000 ML IV SCH ×3 (05:35→17:16)
[2020-05-11 07:27] LABS: Basophils # (auto) 0.02 K/uL (0-0.2); Basophils % (auto) 0.5 %; Eosinophils # (auto) 0.31 K/uL (0-0.5); Eosinophils % (auto) 8.2 %; Hematocrit (blood only) 34.1 % (37-47); Hemoglobin 11.3 g/dL (12.0-16.0); Immature Granulocytes # (auto) 0.01 K/uL (0.00-0.02); Immature Granulocytes % (auto) 0.3 %; Lymphocytes # (auto) 0.96 K/uL (1.2-3.4); Lymphocytes % (auto) 25.3 %; Mean Corpuscular Hemoglobin 28.4 pg (25-34); Mean Corpuscular Hgb Conc 33.1 g/dL (32-36); Mean Corpuscular Volume 85.7 fL (80-100); Mean Platelet Volume 10.8 fL (7.4-10.4); Monocytes # (auto) 0.29 K/uL (0.11-0.59); Monocytes % (auto) 7.6 %; Neutrophils # (auto) 2.21 K/uL (1.4-6.5); Neutrophils % (auto) 58.1 %; Platelet Count 147 K/uL (130-400); RDW Coefficient of Variation 13.8 % (11.5-14.5); RDW Standard Deviation 42.7 fL (36.4-46.3); Red Blood Count 3.98 M/uL (4.2-5.4)
[2020-05-11 07:56] LABS: Albumin Level 3.2 gm/dl (3.4-5.0); BUN Creatinine Ratio 3.6 (10-20); Calcium 8.6 mg/dl (8.5-10.1); Creatinine Clr Calc Pharmacy 115.2 ml/min; Est GFR (African American) 116.3; Est GFR (Non-African American) 100.3; Potassium 3.1 mmol/L (3.5-5.1)
[2020-05-11 08:00] LABS: Albumin Globulin Ratio 1.2 (0.9-2); Bilirubin,Total 0.4 mg/dl (0.2-1); Globulin 2.8 gm/dl (2.5-4.0)
--- NOTE | 2020-05-11 08:37 | Hospitalist Progress Note ---
Date of Service May 11, 2020 Assessment & Plan (1) Pancreatitis, acute: CT showing pancreatitis with possible necrosis Continue IVF - will decrease 75 mL/hr EUS 05/09 - esophagitis, gastritis, recommend Protonix daily for 3 months. Per GI, can discontinue abx GI ok wtih discharge when patient medically stable Abdominal pain improving, only mild symptoms at this time. Tolerated p.o. full liquids. Plan on advancing diet (2) Pancreatic duct stricture: F/U EUS scheduled outpatient in May (3) Superior mesenteric vein thrombosis: Initial read on CT with artifact vs. partially occlusive thrombus of the superior mesenteric vein. GI discussed with radiology (Dr. Toure) with opinion that no better imaging available to r/o or confirm the SMV. Continue heparin - plan on acid changer to Coumadin when the patient is able to tolerate regular diet. Will need to continue with anticoagulation at least until May when a follow up EUS can be performed and hopefully the inflammation is reduced enough that a better visual of the venous system can be attained. (4) Chronic migraine: Continue home topiramate scheduled, hold triptans for now for elevated blood pressure. Will dc phenergan as patient will restart antipsychotic (5) Liver nodule: - two nodules incidentally noted on CT A/p; appeared unchanged from study in 2016 - no acute management (6) Renal stone: - 10 mm stone noted incidentally in R kidney on CT of abdomen - no acute management (7) Hypertension: Stable Continue home losartan when taking po (8) Hypokalemia: Continued hypokalemia Replacement with K riders x3 10 mil equivalents each Start 20 mEq p.o. qam. oral supplementation Recheck potassium in a.m. (9) Hyperlipidemia: (10) Diabetes: type II Well controlled. Last [id number]=1.2 on 03/23/20. Patient's HgBA1C has been below 6.5 since 11/2013 - Hold home Metformin - patient did not require any insulin during last admission - BG checks ACHS (11) Insomnia: will hold home trazadone for now - patient has a number of sedating medications in addition to dilaudid for pain control (12) Depression with anxiety: resume home venlafaxine, chlorpromazine, and buspar Admission and Anticipated Discharge Date Admission Date: May 10, 2020 Subjective No significant events overnight, continued abdominal discomfort but improved since admission Positive bowel movement, tolerating full liquids for breakfast. No nausea or vomiting, diarrhea No fevers chills, chest pain palpitations or dyspnea. Review of Systems Review of Systems: All systems reviewed & are unremarkable except as noted in Subjective Physical Exam Physical Exam: Constitutional: WD/WN, vitals as above Respiratory: Effort normal, CTA B/L CV: RRR, no murmur, no edema Abdomen: normal bowel sounds, soft, minimal UQ TTP, no hepatosplenomegaly Results & Data Results & Data ([facility]) Vital Signs (Past 12 Hours) Vital Signs Temp Pulse Resp BP Pulse Ox 05/11/20 08:09 36.8 C 80 16 147/83 H 93 05/10/20 23:00 37.1 C 82 16 143/84 H 94 Laboratory Results Laboratory Results - last 24 hr 05/10/20 05/10/20 05/10/20 12:04 14:07 15:58 WBC RBC Hgb Hct MCV MCH MCHC RDW Std Deviation RDW Coeff of Natali Plt Count MPV Immature Gran % (Auto) Neut % (Auto) Lymph % (Auto) [place] % (Auto) Eos % (Auto) Baso % (Auto) Neut # (Auto) Lymph # (Auto) [place] # (Auto) Eos # (Auto) Baso # (Auto) Immature Gran # (Auto) Sodium Potassium Chloride Carbon Dioxide Anion Gap BUN Creatinine Est Cr Clr Drug Dosing Est GFR ( Amer) Est GFR (Non-Af Amer) BUN/Creatinine Ratio Glucose POC Glucose 114 H Lactate 2.6 H* 2.0 Calcium Total Bilirubin AST ALT Alkaline Phosphatase Total Protein Albumin Globulin Albumin/Globulin Ratio 05/10/20 05/10/20 05/11/20 17:24 20:28 07:10 WBC 3.80 L RBC 3.98 L Hgb 11.3 L Hct 34.1 L MCV 85.7 MCH 28.4 MCHC 33.1 RDW Std Deviation 42.7 RDW Coeff of Natali 13.8 Plt Count 147 MPV 10.8 H Immature Gran % (Auto) 0.3 Neut % (Auto) 58.1 Lymph % (Auto) 25.3 [place] % (Auto) 7.6 Eos % (Auto) 8.2 Baso % (Auto) 0.5 Neut # (Auto) 2.21 Lymph # (Auto) 0.96 L [place] # (Auto) 0.29 Eos # (Auto) 0.31 Baso # (Auto) 0.02 Immature Gran # (Auto) 0.01 Sodium Potassium Chloride Carbon Dioxide Anion Gap BUN Creatinine Est Cr Clr Drug Dosing Est GFR ( Amer) Est GFR (Non-Af Amer) BUN/Creatinine Ratio Glucose POC Glucose 105 H 136 H Lactate Calcium Total Bilirubin AST ALT Alkaline Phosphatase Total Protein Albumin Globulin Albumin/Globulin Ratio 05/11/20 05/11/20 05/11/20 07:10 07:10 08:12 WBC RBC Hgb Hct MCV MCH MCHC RDW Std Deviation RDW Coeff of Natali Plt Count MPV Immature Gran % (Auto) Neut % (Auto) Lymph % (Auto) [place] % (Auto) Eos % (Auto) Baso % (Auto) Neut # (Auto) Lymph # (Auto) [place] # (Auto) Eos # (Auto) Baso # (Auto) Immature Gran # (Auto) Sodium 145 Potassium 3.1 L Chloride 113 H Carbon Dioxide 26 Anion Gap 5.0 BUN 2 L Creatinine 0.59 L Est Cr Clr Drug Dosing 115.2 Est GFR ( Amer) 116.3 Est GFR (Non-Af Amer) 100.3 BUN/Creatinine Ratio 3.6 L Glucose 128 H POC Glucose 118 H Lactate 1.3 Calcium 8.6 Total Bilirubin 0.4 AST 23 ALT 154 H Alkaline Phosphatase 102 Total Protein 6.0 L Albumin 3.2 L Globulin 2.8 Albumin/Globulin Ratio 1.2 Medications Administered Current Inpatient Medications Atorvastatin Calcium (Atorvastatin 40 Mg Tab) 40 mg PO DAILY NEELA Stop: 06/09/20 08:59 Last Admin: 05/10/20 08:19 Dose: 40 mg Documented by: Buspirone HCl (Buspirone 15 Mg Tab) 30 mg PO HS NEELA Stop: 06/08/20 20:59 Last Admin: 05/10/20 20:21 Dose: 30 mg Documented by: Chlorpromazine HCl (Chlorpromazine Hcl 10 Mg Tab) 10 mg PO HS NEELA Stop: 06/09/20 20:59 Last Admin: 05/10/20 20:19 Dose: 10 mg Documented by: Clonazepam (Clonazepam 0.5 Mg Tab) 0.5 mg PO HS PRN PRN Reason: Sleep Stop: 06/07/20 02:24 Last Admin: 05/10/20 20:24 Dose: 0.5 mg Documented by: Dextrose (Dextrose 50% 50 Ml Syringe) 25 - 50 ml IV UD PRN; Protocol PRN Reason: Hypoglycemia Protocol Stop: 06/07/20 02:14 Docusate Sodium (Docusate Sodium 100 Mg Cap) 100 mg PO BID [facility] Stop: 06/09/20 20:59 Last Admin: 05/10/20 17:25 Dose: 100 mg Documented by: Ergocalciferol (Ergocalciferol 50,000 Units 1250 Mcg Cap) 50,000 units PO Fr@0900 [facility] Stop: 06/09/20 08:59 Last Admin: 05/10/20 08:55 Dose: 50,000 units Documented by: Ferrous Sulfate (Ferrous Sulfate 325 Mg Tab) 325 mg PO BID [facility] Stop: 06/08/20 20:59 Last Admin: 05/10/20 20:21 Dose: 325 mg Documented by: Gabapentin (Gabapentin 800 Mg Tab) 800 mg PO TID [facility] Stop: 06/08/20 20:59 Last Admin: 05/10/20 20:21 Dose: 800 mg Documented by: Glucagon (Glucagon For Inj 1 Mg Vial) 1 mg SQ UD PRN; Protocol PRN Reason: Hypoglycemia Protocol Stop: 06/07/20 02:14 Glucose (Glucose 10 Tabs/Tube) 4 - 8 tabs PO UD PRN; Protocol PRN Reason: Hypoglycemia Protocol Stop: 06/07/20 02:14 Glucose (Glucose 40% Gel 15 Gm Tube) 15 - 30 gm PO UD PRN; Protocol PRN Reason: Hypoglycemia Protocol Stop: 06/07/20 02:14 Hydromorphone HCl (Hydromorphone Inj 0.5 Mg/0.5 Ml Syr) 0.5 mg IV Q4 PRN PRN Reason: Pain Stop: 05/23/20 20:06 Last Admin: 05/11/20 05:30 Dose: 0.5 mg Documented by: Lactated Ringer's (Lr) 1,000 mls @ 125 mls/hr IV .Q8H [facility] Stop: 06/07/20 10:59 Last Admin: 05/11/20 07:56 Dose: 125 mls/hr Documented by: Heparin Sodium/Dextrose (Heparin Sodium/Dextrose) 25,000 units in 500 mls @ 25 mls/hr IV .Q20H [facility]; Protocol Stop: 06/07/20 12:59 Last Titration: 05/11/20 07:08 Dose: 1,250 units/hr, 25 mls/hr Documented by: Losartan Potassium (Losartan Potassium 25 Mg Tab) 25 mg PO DAILY [facility] Stop: 06/09/20 08:59 Last Admin: 05/10/20 08:54 Dose: 25 mg Documented by: Menthol (Cough Drop (Sugar Free) Jamin 24 Jamin/1 Box) 1 jamin BUCCAL PRN PRN PRN Reason: Sore Throat Stop: 06/09/20 05:46 Last Admin: 05/10/20 06:04 Dose: 1 jamin Documented by: Miconazole Nitrate (Miconazole Nitrate Powder 43 Gm) 1 appln EXT PRN PRN PRN Reason: Affected Skin Folds Stop: 06/09/20 11:11 Last Admin: 05/10/20 12:18 Dose: 1 appln Documented by: Miscellaneous (Carbohydrates For Hypoglycemia ) 15 - 30 gm PO UD PRN PRN Reason: Hypoglycemia Protocol Stop: 06/07/20 02:14 Multivitamins (Multivitamin Tab) 1 tab PO DAILY [facility] Stop: 06/09/20 08:59 Last Admin: 05/10/20 08:19 Dose: 1 tab Documented by: Ondansetron HCl (Ondansetron Inj 2 Mg/Ml 2 Ml Vial) 4 mg IV Q6H PRN PRN Reason: Nausea Stop: 06/07/20 02:24 Last Admin: 05/08/20 08:04 Dose: 4 mg Documented by: Oxybutynin Chloride (Oxybutynin Chloride Xl 5 Mg Tabcr) 10 mg PO DAILY [facility] Stop: 06/09/20 08:59 Last Admin: 05/10/20 08:19 Dose: 10 mg Documented by: Pantoprazole Sodium (Pantoprazole 40 Mg Tab) 40 mg PO QAM [facility] Stop: 06/08/20 12:29 Last Admin: 05/10/20 08:19 Dose: 40 mg Documented by: Topiramate (Topiramate 100 Mg Tab) 100 mg PO QAM [facility] Stop: 06/07/20 10:59 Last Admin: 05/10/20 08:20 Dose: 100 mg Documented by: Trazodone HCl (Trazodone Hcl 50 Mg Tab) 50 mg PO HS [facility] Stop: 06/08/20 20:59 Venlafaxine HCl (Venlafaxine Hcl Xr 150 Mg Capxr) 150 mg PO QAM [facility] Stop: 06/09/20 08:59 Last Admin: 05/10/20 08:18 Dose: 150 mg Documented by: Venlafaxine HCl (Venlafaxine Hcl Xr 75 Mg Capxr) 75 mg PO QAM [facility] Stop: 06/09/20 08:59 Last Admin: 05/10/20 08:19 Dose: 75 mg Documented by: PG Care Time/CCT Total # of Minutes Spent Total Time Spent with Patient: Total time spent is greater than 50% in coordination of care (as documented) at patient's floor/unit and/or counseling patient: Coding Level of Care Code 02033 Subseq Hosp Care Lvl 2 Diagnoses Pancreatitis, acute K85.90 Acute pancreatitis complication: no infection or necrosis Pancreatitis type: unspecified pancreatitis type Pancreatic duct stricture K86.89 Superior mesenteric vein thrombosis K55.069 Chronic migraine G43.709 Liver nodule K76.89 Renal stone N20.0 Hypertension I10 Hypertension type: essential hypertension Hypokalemia E87.6 Hyperlipidemia E78.5 Hyperlipidemia type: unspecified Diabetes E11.9 Diabetes mellitus complication status: without complication Diabetes mellitus coil placer insulin use: without skilled nursing use Diabetes mellitus type: type 2 Insomnia G47.00 Insomnia type: unspecified Depression with anxiety F41.8 (1) Insomnia Insomnia type: unspecified Qualified Code(s): G47.00 - Insomnia, unspecified (2) Diabetes Diabetes mellitus complication status: without complication Diabetes mellitus coil placer insulin use: without coil placer use Diabetes mellitus type: type 2 Qualified Code(s): E11.9 - Type 2 diabetes mellitus without complications (3) Hyperlipidemia Hyperlipidemia type: unspecified Qualified Code(s): E78.5 - Hyperlipidemia, unspecified (4) Hypertension Hypertension type: essential hypertension Qualified Code(s): I10 - Essential (primary) hypertension (5) Pancreatitis, acute Acute pancreatitis complication: no infection or necrosis Pancreatitis type: unspecified pancreatitis type Qualified Code(s): K85.90 - Acute pancreatitis without necrosis or infection, unspecified
[2020-05-11] MEDS: LOSARTAN POTASSIUM 25 MG TAB PO SCH (09:06)
[2020-05-11] MEDS: GABAPENTIN 800 MG TAB PO SCH ×3 (09:06→21:07)
[2020-05-11] MEDS: DOCUSATE SODIUM 100 MG CAP PO SCH ×2 (09:06→21:07)
[2020-05-11] MEDS: OXYBUTYNIN CHLORIDE XL 5 MG TABCR PO SCH (09:06)
[2020-05-11] MEDS: MULTIVITAMIN TAB PO SCH (09:07)
[2020-05-11] MEDS: ATORVASTATIN 40 MG TAB PO SCH (09:07)
[2020-05-11] MEDS: PANTOprazole 40 MG TAB PO SCH (09:07)
[2020-05-11] MEDS: VENLAFAXINE HCL XR 150 MG CAPXR PO SCH (09:07)
[2020-05-11] MEDS: TOPIRAMATE 100 MG TAB PO SCH (09:07)
[2020-05-11] MEDS: FERROUS SULFATE 325 MG TAB PO SCH ×2 (09:07→21:07)
[2020-05-11] MEDS: VENLAFAXINE HCL XR 75 MG CAPXR PO SCH (09:07)
[2020-05-11 09:54] LABS: Partial Thromboplastin Ratio 2.4
[2020-05-11 10:00] LABS: Partial Thromboplastin Time 66.2 Seconds (21.0-31.0)
[2020-05-11] MEDS: POTASSIUM CHLORIDE / WTR 10 MEQ/100 ML PLCT IV SCH ×3 (11:17→13:32)
[2020-05-11] MEDS: POTASSIUM CHLORIDE CRTAB 20 MEQ TABCR PO SCH (11:17)
[2020-05-11] MEDS: WARFARIN SOD 5 MG TAB PO SCH (16:51)
[2020-05-11] MEDS: busPIRone 15 MG TAB PO SCH (21:07)
[2020-05-11] MEDS: chlorproMAZINE HCL 10 MG TAB PO SCH (21:07)
[2020-05-11] MEDS: ENOXAPARIN 100 MG/1ML SYR SQ SCH (21:08)
[2020-05-12] MEDS: clonazePAM 0.5 MG TAB PO PRN (00:25)
[2020-05-12] MEDS: HYDROmorphone INJ 0.5 MG/0.5 ML SYR IV PRN ×3 (05:40→14:10)
[2020-05-12] MEDS: LACTATED RINGER'S 1,000 ML IV SCH ×2 (05:40→18:40)
[2020-05-12 05:55] LABS: Hematocrit (blood only) 37.4 % (37-47); Hemoglobin 12.2 g/dL (12.0-16.0); Mean Corpuscular Hemoglobin 28.4 pg (25-34); Mean Corpuscular Hgb Conc 32.6 g/dL (32-36); Mean Platelet Volume 10.6 fL (7.4-10.4); Platelet Count 131 K/uL (130-400); RDW Coefficient of Variation 13.8 % (11.5-14.5); RDW Standard Deviation 43.2 fL (36.4-46.3); White Blood Count 3.93 K/uL (4.8-10.8)
[2020-05-12 06:28] LABS: BUN Creatinine Ratio 4.9 (10-20); Calcium 8.7 mg/dl (8.5-10.1); Creatinine Clr Calc Pharmacy 107.9 ml/min; Est GFR (African American) 113.8; Est GFR (Non-African American) 98.2; Potassium 3.2 mmol/L (3.5-5.1)
[2020-05-12] MEDS: VENLAFAXINE HCL XR 150 MG CAPXR PO SCH (08:52)
[2020-05-12] MEDS: OXYBUTYNIN CHLORIDE XL 5 MG TABCR PO SCH (08:52)
[2020-05-12] MEDS: VENLAFAXINE HCL XR 75 MG CAPXR PO SCH (08:52)
[2020-05-12] MEDS: FERROUS SULFATE 325 MG TAB PO SCH ×2 (08:53→19:57)
[2020-05-12] MEDS: TOPIRAMATE 100 MG TAB PO SCH (08:53)
[2020-05-12] MEDS: POTASSIUM CHLORIDE CRTAB 20 MEQ TABCR PO SCH ×3 (08:53→19:57)
[2020-05-12] MEDS: DOCUSATE SODIUM 100 MG CAP PO SCH ×2 (08:53→19:57)
[2020-05-12] MEDS: ENOXAPARIN 100 MG/1ML SYR SQ SCH ×4 (08:53→19:56)
[2020-05-12] MEDS: LOSARTAN POTASSIUM 25 MG TAB PO SCH (08:53)
[2020-05-12] MEDS: GABAPENTIN 800 MG TAB PO SCH ×3 (08:53→19:57)
[2020-05-12] MEDS: MULTIVITAMIN TAB PO SCH (08:53)
[2020-05-12] MEDS: PANTOprazole 40 MG TAB PO SCH (08:53)
[2020-05-12] MEDS: ATORVASTATIN 40 MG TAB PO SCH (08:53)
[2020-05-12] MEDS: POTASSIUM CHLORIDE / WTR 10 MEQ/100 ML PLCT IV SCH ×3 (09:11→11:18)
[2020-05-12 12:08] LABS: INR 1.1 (0.9-1.1); Prothrombin Time 11.4 Seconds (9.0-12.0)
--- NOTE | 2020-05-12 14:15 | Hospitalist Progress Note ---
Date of Service May 12, 2020 Assessment & Plan (1) Pancreatitis, acute: CT showing pancreatitis with possible necrosis Continue IVF - LR 75 mL/hr EUS 05/09 - esophagitis, gastritis, recommend Protonix daily for 3 months. Per GI, can discontinue abx GI ok wtih discharge when patient medically stable Pain persists 09/26 today. Patient requiring Dilaudid every 4-6hrs. Will order oxycodone IR 5mg PO for pain to see if we can transition her to PO meds. Lipase improved, but remains elevated at 738. (2) Pancreatic duct stricture: F/U EUS scheduled outpatient in May (3) Superior mesenteric vein thrombosis: Initial read on CT with artifact vs. partially occlusive thrombus of the superior mesenteric vein. GI discussed with radiology (Dr. Toure) with opinion that no better imaging available to r/o or confirm the SMV. Patient started on Lovenox and Coumadin 5mg daily. INR today is 1.1. Repeat in AM. Will need to continue with anticoagulation at least until May when a follow up EUS can be performed and hopefully the inflammation is reduced enough that a better visual of the venous system can be attained. (4) Chronic migraine: Continue home topiramate scheduled. Triptans held for elevated blood pressure. BP improved. Consider restarting tomorrow. (5) Liver nodule: - two nodules incidentally noted on CT A/p; appeared unchanged from study in 2016 - no acute management (6) Renal stone: 10 mm stone noted incidentally in R kidney on CT of abdomen - no acute management -Patient will need outpatient f/u with urology for management. (7) Hypertension: Improved at 123/75. Continue home losartan. (8) Hypokalemia: Persistent hypokalemia despite replacement. Replacement with K riders x3 10 mil equivalents each again today. Start 20 mEq p.o. TID oral supplementation Recheck potassium in a.m. (9) Hyperlipidemia: Continue atorvastatin 40mg daily. (10) Diabetes: type II Well controlled. Last [id number]=6.2 on 03/23/20. Patient's HgBA1C has been below 6.5 since 11/2013 - Hold home Metformin - patient did not require any insulin during last admission - BG checks ACHS (11) Insomnia: will hold home trazadone for now - patient has a number of sedating medications in addition to dilaudid for pain control (12) Depression with anxiety: Continue home venlafaxine, chlorpromazine, and buspar Admission and Anticipated Discharge Date Admission Date: May 10, 2020 Subjective 60 yo female admitted with acute pancreatitis and superior mesenteric vein thro mbosis. Patient continues to have pain 6/10 today. She has been requiring Dilaudid for pain. She denies any n/v, and is tolerating an AHA diet. Patient denies any constipation as well. Review of Systems Constitutional: no fever and no chills Eyes: no worsening vision Ear, Nose, Mouth, Throat: no dizziness Respiratory: no dyspnea Cardiovascular: no chest pain Gastrointestinal: + abdominal pain (epigastric pain ); no nausea and no vomiting Psychiatric: no confusion Physical Exam Physical Exam: Temp Pulse Resp BP Pulse Ox 36.7 C 67 16 123/75 95 05/12/20 07:57 05/12/20 07:57 05/12/20 07:57 05/12/20 07:57 05/12/20 07:57 Patient is afebrile. Vital signs stable. Constitutional: + obese; no acute distress ENMT: Ears: no hearing impairment Neck: trachea midline, no thyromegaly Respiratory: normal respiratory effort, lungs clear to auscultation Cardiovascular: RRR, no murmur, no edema Gastrointestinal (Abdomen): Inspection/Auscultation: normal bowel sounds Percussion/Palpation: + abdomen tender (diffuse tenderness with palpation ) and abdomen soft Psychiatric: A+Ox3, euthymic affect Lymphatic: no lymphadenopathy Results & Data Results & Data ([facility]) Vital Signs (Past 12 Hours) Vital Signs Temp Pulse Resp BP Pulse Ox 05/12/20 07:57 36.7 C 67 16 123/75 95 05/12/20 02:37 36.9 C 87 19 135/92 94 PG Care Time/CCT Total # of Minutes Spent Total Time Spent with Patient: Total time spent is greater than 50% in coordination of care (as documented) at patient's floor/unit and/or counseling patient: Coding Level of Care Code 33619 Subseq Hosp Care Lvl 2 Medical Decision Making Moderate Complexity Diagnoses Pancreatitis, acute K85.90 Acute pancreatitis complication: no infection or necrosis Pancreatitis type: unspecified pancreatitis type Pancreatic duct stricture K86.89 Superior mesenteric vein thrombosis K55.069 Chronic migraine G43.709 Liver nodule K76.89 Renal stone N20.0 Hypertension I10 Hypertension type: essential hypertension Hypokalemia E87.6 Hyperlipidemia E78.5 Hyperlipidemia type: unspecified Diabetes E11.9 Diabetes mellitus complication status: without complication Diabetes mellitus intermediate insulin use: without pattern checker use Diabetes mellitus type: type 2 Insomnia G47.00 Insomnia type: unspecified Depression with anxiety F41.8 (1) Insomnia Insomnia type: unspecified Qualified Code(s): G47.00 - Insomnia, unspecified (2) Diabetes Diabetes mellitus complication status: without complication Diabetes mellitus intermediate insulin use: without pattern checker use Diabetes mellitus type: type 2 Qualified Code(s): E11.9 - Type 2 diabetes mellitus without complications (3) Hyperlipidemia Hyperlipidemia type: unspecified Qualified Code(s): E78.5 - Hyperlipidemia, unspecified (4) Hypertension Hypertension type: essential hypertension Qualified Code(s): I10 - Essential (primary) hypertension (5) Pancreatitis, acute Acute pancreatitis complication: no infection or necrosis Pancreatitis type: unspecified pancreatitis type Qualified Code(s): K85.90 - Acute pancreatitis without necrosis or infection, unspecified
[2020-05-12] MEDS: WARFARIN SOD 5 MG TAB PO SCH (16:35)
[2020-05-12] MEDS: oxyCODONE HCL IR 5 MG TAB (IMMEDIATE RELEASE) PO PRN ×2 (18:11→22:12)
[2020-05-12] MEDS: chlorproMAZINE HCL 10 MG TAB PO SCH (19:57)
[2020-05-12] MEDS: busPIRone 15 MG TAB PO SCH (19:57)
[2020-05-12] MEDS: MICONAZOLE NITRATE POWDER 43 GM EXT PRN (22:06)
[2020-05-13] MEDS: oxyCODONE HCL IR 5 MG TAB (IMMEDIATE RELEASE) PO PRN ×4 (03:51→19:54)
[2020-05-13 06:41] LABS: INR 1.1 (0.9-1.1); Prothrombin Time 11.2 Seconds (9.0-12.0)
--- NOTE | 2020-05-13 08:36 | Hospitalist Progress Note ---
Date of Service May 13, 2020 Assessment & Plan (1) Pancreatitis, acute: * CT showing pancreatitis with possible necrosis * GI consulted * EUS 05/09 - esophagitis, gastritis, recommend Protonix daily for 3 months. Per GI, can discontinue abx * GI signed off -- ok for d/c when medically stable * Abdominal pain improving but did have increased pain this morning requiring IV Dilaudid * Tolerated AHA diet this morning and had increased pain requiring IV Dilaudid * Discussed to wean pain medication as tolerated but would avoid IV if able to for remainder of the day * Kpad ordered for back pain * Lipase trending down but still elevated at 596 * Increase LR to 125cc/hr * Labs in AM (2) Pancreatic duct stricture: * F/U EUS scheduled outpatient in May -- will need to keep this appt * PD pathology without malignancy on most recent but will need further investigation given nodularity on EUS (3) Superior mesenteric vein thrombosis: * Initial read on CT with artifact vs. partially occlusive thrombus of the superior mesenteric vein. GI discussed with radiology (Dr. Toure) with opinion that no better imaging available to r/o or confirm the SMV. * Will need to continue with anticoagulation at least until May when a follow up EUS can be performed and hopefully the inflammation is reduced enough that a better visual of the venous system can be attained. * INR 1.1 * Heparin transitioned to Lovenox 90 Q12 and Coumadin 5mg daily * Will need f/u with INR -- discussed with CM and will arrange f/u tomorrow * INR in AM (4) Chronic migraine: * Continue home topiramate scheduled, hold triptans for now for elevated blood pressure. Will dc phenergan as patient will restart antipsychotic (5) Liver nodule: * Two nodules incidentally noted on CT A/p; appeared unchanged from study in 2016 * no acute management (6) Renal stone: * 10 mm stone noted incidentally in R kidney on CT of abdomen * no acute management (7) Hypertension: * Stable * Continue home losartan when taking po (8) Hypokalemia: * Continued hypokalemia and had received IV replacement and placed on 20meq PO TID * Mag checked today, wnl * Will decrease oral supplementation to 20meq PO BID * BMP in AM (9) Hyperlipidemia: * Atorvastatin 40mg (10) Diabetes: * type II * Well controlled. * Last HgbA1C was 5.2 on 03/23/20. (HgBA1C has been below 6.5 since 11/2013) * Hold home Metformin * patient did not require any insulin during last admission * BSGs ACHS,with acceptable sugars * continue to monitor (11) Insomnia: will hold home trazadone for now - patient has a number of sedating medications in addition to dilaudid for pain control (12) Depression with anxiety: resume home venlafaxine, chlorpromazine, and buspar Dispo: continued inpatient stay hopefully d/c tomorrow CM to arrange home health and f/u with [facility] at d/c will need f/u EUS outpatient with GI Admission and Anticipated Discharge Date Admission Date: May 10, 2020 Subjective Patient evaluated this morning. Had increased pain this morning requiring IV pain medication. Pain in epigastric region. Sharp, stabbing. No pain through her back. She states she believes the pain in her back/neck from laying in bed. Will order heating pad. Pain currently controlled and she will utilize IV only for breakthrough pain. Had been d/c on pain medications in the past and her PCP wrote for tramadol but still had been painful. Discussed will send with pain control and she will keep f/u appt with GI for repeat EUS for evaluation. She states she did her own Lovenox injection. We discussed having f/u with [facility] clinic. To remain inpatient overnight for pain control and hopeful d/c tomorrow. No fever, chills, chest pain, shortness of breath, nausea or dysuria at this time. Did have some nausea this morning but that subsided after she ate breakfast. Review of Systems Review of Systems: All systems reviewed & are unremarkable except as noted in HPI & below Physical Exam Physical Exam: Patient is afebrile. Vital signs stable. Constitutional: well developed, well nourished and + obese; no acute distress ENMT: Ears: no hearing impairment mmm Neck: trachea midline, no thyromegaly Respiratory: normal respiratory effort, lungs clear to auscultation Cardiovascular: RRR, no murmur, no edema Gastrointestinal (Abdomen): Inspection/Auscultation: normal bowel sounds Percussion/Palpation: + abdomen tender (tenderness with palpation epigastric region) and abdomen soft; no guarding and abdomen not rigid bruising to R abd from lovenox injection Musculoskeletal: no cyanosis or clubbing, extremities motor strength 5/5 Skin: warm dry Neurologic: PERRL, EOMI, accommodation nl, no face palsy, no dysarthria Psychiatric: A+Ox3, euthymic affect Lymphatic: no lymphadenopathy Results & Data Results & Data ([facility]) Vital Signs (Past 12 Hours) Vital Signs Temp Pulse Resp BP Pulse Ox 05/13/20 07:17 36.5 C 87 16 123/83 95 05/12/20 23:57 36.6 C 86 16 147/82 H 96 Laboratory Results 05/13/20 05/13/20 05/13/20 Range/Units 08:32 07:58 05:42 WBC 4.95 (4.8-10.8) K/uL RBC 4.37 (4.2-5.4) M/uL Hgb 12.7 (12.0-16.0) g/dL Hct 37.9 (37-47) % MCV 86.7 (80-100) fL MCH 29.1 (25-34) pg MCHC 33.5 (32-36) g/dL RDW Std Deviation 43.3 (36.4-46.3) fL RDW Coeff of Natali 13.9 (11.5-14.5) % Plt Count 160 (130-400) K/uL MPV 11.3 H (7.4-10.4) fL Immature Gran % (Auto) 0.0 % Neut % (Auto) 61.8 % Lymph % (Auto) 24.8 % [place] % (Auto) 6.3 % Eos % (Auto) 6.7 % Baso % (Auto) 0.4 % Neut # (Auto) 3.06 (1.4-6.5) K/uL Lymph # (Auto) 1.23 (1.2-3.4) K/uL [place] # (Auto) 0.31 (0.11-0.59) K/uL Eos # (Auto) 0.33 (0-0.5) K/uL Baso # (Auto) 0.02 (0-0.2) K/uL Immature Gran # (Auto) 0.00 (0.00-0.02) K/uL PT (9.0-12.0) Seconds INR (0.9-1.1) Sodium 143 (136-145) mmol/L Potassium 4.0 D (3.5-5.1) mmol/L Chloride 113 H (98-107) mmol/L Carbon Dioxide 22 (21-32) mmol/L Anion Gap 8.0 (3-11) BUN 7 (7-18) mg/dl Creatinine 0.76 (0.6-1.2) mg/dl Est Cr Clr Drug Dosing 89.5 ml/min Est GFR ( Amer) 99.5 Est GFR (Non-Af Amer) 85.9 BUN/Creatinine Ratio 9.2 L (10-20) Glucose 123 H (70-99) mg/dl POC Glucose 116 H (70-99) mg/dl Calcium 9.3 (8.5-10.1) mg/dl Magnesium 2.2 (1.8-2.4) mg/dl Total Bilirubin 0.4 (0.2-1) mg/dl AST 21 (15-37) U/L ALT 110 H (12-78) U/L Alkaline Phosphatase 115 (45-117) U/L Total Protein 7.1 (6.4-8.2) gm/dl Albumin 3.7 (3.4-5.0) gm/dl Globulin 3.4 (2.5-4.0) gm/dl Albumin/Globulin Ratio 1.1 (0.9-2) Lipase 596 H (73-393) U/L 05/13/20 05/12/20 05/12/20 Range/Units 05:38 21:12 17:08 WBC (4.8-10.8) K/uL RBC (4.2-5.4) M/uL Hgb (12.0-16.0) g/dL Hct (37-47) % MCV (80-100) fL MCH (25-34) pg MCHC (32-36) g/dL RDW Std Deviation (36.4-46.3) fL RDW Coeff of Natali (11.5-14.5) % Plt Count (130-400) K/uL MPV (7.4-10.4) fL Immature Gran % (Auto) % Neut % (Auto) % Lymph % (Auto) % [place] % (Auto) % Eos % (Auto) % Baso % (Auto) % Neut # (Auto) (1.4-6.5) K/uL Lymph # (Auto) (1.2-3.4) K/uL [place] # (Auto) (0.11-0.59) K/uL Eos # (Auto) (0-0.5) K/uL Baso # (Auto) (0-0.2) K/uL Immature Gran # (Auto) (0.00-0.02) K/uL PT 11.2 (9.0-12.0) Seconds INR 1.1 (0.9-1.1) Sodium (136-145) mmol/L Potassium (3.5-5.1) mmol/L Chloride (98-107) mmol/L Carbon Dioxide (21-32) mmol/L Anion Gap (3-11) BUN (7-18) mg/dl Creatinine (0.6-1.2) mg/dl Est Cr Clr Drug Dosing ml/min Est GFR ( Amer) Est GFR (Non-Af Amer) BUN/Creatinine Ratio (10-20) Glucose (70-99) mg/dl POC Glucose 106 H 111 H (70-99) mg/dl Calcium (8.5-10.1) mg/dl Magnesium (1.8-2.4) mg/dl Total Bilirubin (0.2-1) mg/dl AST (15-37) U/L ALT (12-78) U/L Alkaline Phosphatase (45-117) U/L Total Protein (6.4-8.2) gm/dl Albumin (3.4-5.0) gm/dl Globulin (2.5-4.0) gm/dl Albumin/Globulin Ratio (0.9-2) Lipase (73-393) U/L 05/12/20 05/12/20 Range/Units 12:09 11:48 WBC (4.8-10.8) K/uL RBC (4.2-5.4) M/uL Hgb (12.0-16.0) g/dL Hct (37-47) % MCV (80-100) fL MCH (25-34) pg MCHC (32-36) g/dL RDW Std Deviation (36.4-46.3) fL RDW Coeff of Natali (11.5-14.5) % Plt Count (130-400) K/uL MPV (7.4-10.4) fL Immature Gran % (Auto) % Neut % (Auto) % Lymph % (Auto) % [place] % (Auto) % Eos % (Auto) % Baso % (Auto) % Neut # (Auto) (1.4-6.5) K/uL Lymph # (Auto) (1.2-3.4) K/uL [place] # (Auto) (0.11-0.59) K/uL Eos # (Auto) (0-0.5) K/uL Baso # (Auto) (0-0.2) K/uL Immature Gran # (Auto) (0.00-0.02) K/uL PT 11.4 (9.0-12.0) Seconds INR 1.1 (0.9-1.1) Sodium (136-145) mmol/L Potassium (3.5-5.1) mmol/L Chloride (98-107) mmol/L Carbon Dioxide (21-32) mmol/L Anion Gap (3-11) BUN (7-18) mg/dl Creatinine (0.6-1.2) mg/dl Est Cr Clr Drug Dosing ml/min Est GFR ( Amer) Est GFR (Non-Af Amer) BUN/Creatinine Ratio (10-20) Glucose (70-99) mg/dl POC Glucose 98 (70-99) mg/dl Calcium (8.5-10.1) mg/dl Magnesium (1.8-2.4) mg/dl Total Bilirubin (0.2-1) mg/dl AST (15-37) U/L ALT (12-78) U/L Alkaline Phosphatase (45-117) U/L Total Protein (6.4-8.2) gm/dl Albumin (3.4-5.0) gm/dl Globulin (2.5-4.0) gm/dl Albumin/Globulin Ratio (0.9-2) Lipase (73-393) U/L PG Care Time/CCT Total # of Minutes Spent Total Time Spent with Patient: Total time spent is greater than 50% in coordination of care (as documented) at patient's floor/unit and/or counseling patient: Coding Level of Care Code 83874 Subseq Hosp Care Lvl 2 Diagnoses Pancreatitis, acute K85.90 Pancreatitis type: unspecified pancreatitis type Acute pancreatitis complication: no infection or necrosis Pancreatic duct stricture K86.89 Superior mesenteric vein thrombosis K55.069 Chronic migraine G43.709 Liver nodule K76.89 Renal stone N20.0 Hypertension I10 Hypertension type: essential hypertension Hypokalemia E87.6 Hyperlipidemia E78.5 Hyperlipidemia type: unspecified Diabetes E11.9 Diabetes mellitus type: type 2 Diabetes mellitus shelter insulin use: without shelter use Diabetes mellitus complication status: without complication Insomnia G47.00 Insomnia type: unspecified Depression with anxiety F41.8 (1) Pancreatitis, acute Pancreatitis type: unspecified pancreatitis type Acute pancreatitis complication: no infection or necrosis Qualified Code(s): K85.90 - Acute pancreatitis without necrosis or infection, unspecified (2) Hypertension Hypertension type: essential hypertension Qualified Code(s): I10 - Essential (primary) hypertension (3) Hyperlipidemia Hyperlipidemia type: unspecified Qualified Code(s): E78.5 - Hyperlipidemia, unspecified (4) Diabetes Diabetes mellitus type: type 2 Diabetes mellitus shelter insulin use: without shelter use Diabetes mellitus complication status: without complication Qualified Code(s): E11.9 - Type 2 diabetes mellitus without complications (5) Insomnia Insomnia type: unspecified Qualified Code(s): G47.00 - Insomnia, unspecified
[2020-05-13] MEDS: DOCUSATE SODIUM 100 MG CAP PO SCH ×2 (08:44→20:08)
[2020-05-13] MEDS: LOSARTAN POTASSIUM 25 MG TAB PO SCH (08:44)
[2020-05-13] MEDS: VENLAFAXINE HCL XR 75 MG CAPXR PO SCH (08:44)
[2020-05-13] MEDS: VENLAFAXINE HCL XR 150 MG CAPXR PO SCH (08:44)
[2020-05-13] MEDS: FERROUS SULFATE 325 MG TAB PO SCH ×2 (08:44→20:08)
[2020-05-13] MEDS: OXYBUTYNIN CHLORIDE XL 5 MG TABCR PO SCH (08:44)
[2020-05-13] MEDS: MULTIVITAMIN TAB PO SCH (08:45)
[2020-05-13] MEDS: GABAPENTIN 800 MG TAB PO SCH ×3 (08:45→20:08)
[2020-05-13] MEDS: ATORVASTATIN 40 MG TAB PO SCH (08:45)
[2020-05-13] MEDS: PANTOprazole 40 MG TAB PO SCH (08:45)
[2020-05-13] MEDS: POTASSIUM CHLORIDE CRTAB 20 MEQ TABCR PO SCH ×2 (08:45→20:08)
[2020-05-13] MEDS: TOPIRAMATE 100 MG TAB PO SCH (08:45)
[2020-05-13 08:52] LABS: Basophils # (auto) 0.02 K/uL (0-0.2); Basophils % (auto) 0.4 %; Eosinophils # (auto) 0.33 K/uL (0-0.5); Eosinophils % (auto) 6.7 %; Hematocrit (blood only) 37.9 % (37-47); Hemoglobin 12.7 g/dL (12.0-16.0); Lymphocytes # (auto) 1.23 K/uL (1.2-3.4); Lymphocytes % (auto) 24.8 %; Mean Corpuscular Hemoglobin 29.1 pg (25-34); Mean Corpuscular Hgb Conc 33.5 g/dL (32-36); Mean Corpuscular Volume 86.7 fL (80-100); Mean Platelet Volume 11.3 fL (7.4-10.4); Monocytes # (auto) 0.31 K/uL (0.11-0.59); Monocytes % (auto) 6.3 %; Neutrophils # (auto) 3.06 K/uL (1.4-6.5); Neutrophils % (auto) 61.8 %; Platelet Count 160 K/uL (130-400); RDW Coefficient of Variation 13.9 % (11.5-14.5); RDW Standard Deviation 43.3 fL (36.4-46.3); Red Blood Count 4.37 M/uL (4.2-5.4); White Blood Count 4.95 K/uL (4.8-10.8)
[2020-05-13] MEDS: LACTATED RINGER'S 1,000 ML IV SCH ×2 (08:56→19:03)
[2020-05-13] MEDS: ENOXAPARIN 100 MG/1ML SYR SQ SCH ×2 (08:57→20:08)
[2020-05-13 09:29] LABS: Albumin Globulin Ratio 1.1 (0.9-2); Albumin Level 3.7 gm/dl (3.4-5.0); BUN Creatinine Ratio 9.2 (10-20); Bilirubin,Total 0.4 mg/dl (0.2-1); Calcium 9.3 mg/dl (8.5-10.1); Creatinine Clr Calc Pharmacy 89.5 ml/min; Est GFR (African American) 99.5; Est GFR (Non-African American) 85.9; Globulin 3.4 gm/dl (2.5-4.0); Magnesium 2.2 mg/dl (1.8-2.4); Total Protein 7.1 gm/dl (6.4-8.2)
[2020-05-13] MEDS: HYDROmorphone INJ 0.5 MG/0.5 ML SYR IV PRN (10:46)
[2020-05-13] MEDS: tiZANidine HCL 4 MG TABLET PO PRN (13:23)
[2020-05-13] MEDS: WARFARIN SOD 5 MG TAB PO SCH (15:34)
[2020-05-13] MEDS: chlorproMAZINE HCL 10 MG TAB PO SCH (20:08)
[2020-05-13] MEDS: busPIRone 15 MG TAB PO SCH (20:08)
[2020-05-13] MEDS: clonazePAM 0.5 MG TAB PO PRN (23:39)
[2020-05-14] MEDS: LACTATED RINGER'S 1,000 ML IV SCH (04:42)
[2020-05-14 06:57] LABS: Basophils # (auto) 0.02 K/uL (0-0.2); Basophils % (auto) 0.5 %; Eosinophils # (auto) 0.21 K/uL (0-0.5); Eosinophils % (auto) 5.8 %; Hematocrit (blood only) 36.1 % (37-47); Hemoglobin 11.8 g/dL (12.0-16.0); Immature Granulocytes # (auto) 0.01 K/uL (0.00-0.02); Immature Granulocytes % (auto) 0.3 %; Lymphocytes # (auto) 1.05 K/uL (1.2-3.4); Lymphocytes % (auto) 28.8 %; Mean Corpuscular Hemoglobin 28.4 pg (25-34); Mean Corpuscular Hgb Conc 32.7 g/dL (32-36); Mean Platelet Volume 11.1 fL (7.4-10.4); Monocytes % (auto) 5.5 %; Neutrophils # (auto) 2.15 K/uL (1.4-6.5); Neutrophils % (auto) 59.1 %; Platelet Count 138 K/uL (130-400); RDW Coefficient of Variation 13.9 % (11.5-14.5); RDW Standard Deviation 43.6 fL (36.4-46.3); Red Blood Count 4.15 M/uL (4.2-5.4); White Blood Count 3.64 K/uL (4.8-10.8)
[2020-05-14 07:07] LABS: INR 1.2 (0.9-1.1); Prothrombin Time 12.1 Seconds (9.0-12.0)
[2020-05-14 07:26] LABS: BUN Creatinine Ratio 12.3 (10-20); Calcium 9.2 mg/dl (8.5-10.1); Creatinine Clr Calc Pharmacy 91.9 ml/min; Est GFR (African American) 102.8; Est GFR (Non-African American) 88.7; Potassium 3.7 mmol/L (3.5-5.1)
[2020-05-14] MEDS: GABAPENTIN 800 MG TAB PO SCH ×3 (07:54→21:16)
[2020-05-14] MEDS: POTASSIUM CHLORIDE CRTAB 20 MEQ TABCR PO SCH ×2 (07:54→21:18)
[2020-05-14] MEDS: DOCUSATE SODIUM 100 MG CAP PO SCH ×2 (07:54→21:18)
[2020-05-14] MEDS: VENLAFAXINE HCL XR 150 MG CAPXR PO SCH (07:54)
[2020-05-14] MEDS: FERROUS SULFATE 325 MG TAB PO SCH ×2 (07:54→21:20)
[2020-05-14] MEDS: LOSARTAN POTASSIUM 25 MG TAB PO SCH (07:55)
[2020-05-14] MEDS: MULTIVITAMIN TAB PO SCH (07:55)
[2020-05-14] MEDS: PANTOprazole 40 MG TAB PO SCH (07:55)
[2020-05-14] MEDS: VENLAFAXINE HCL XR 75 MG CAPXR PO SCH (07:55)
[2020-05-14] MEDS: ATORVASTATIN 40 MG TAB PO SCH (07:55)
[2020-05-14] MEDS: TOPIRAMATE 100 MG TAB PO SCH (07:55)
[2020-05-14] MEDS: OXYBUTYNIN CHLORIDE XL 5 MG TABCR PO SCH (07:55)
[2020-05-14] MEDS: ENOXAPARIN 100 MG/1ML SYR SQ SCH ×2 (07:56→21:22)
[2020-05-14] MEDS: oxyCODONE HCL IR 5 MG TAB (IMMEDIATE RELEASE) PO PRN ×4 (07:57→21:17)
[2020-05-14 09:40] LABS: Albumin Level 3.4 gm/dl (3.4-5.0); Bilirubin Direct 0.1 mg/dl (0-0.2); Bilirubin,Total 0.3 mg/dl (0.2-1); Total Protein 6.6 gm/dl (6.4-8.2)
--- NOTE | 2020-05-14 13:04 | Hospitalist Progress Note ---
Date of Service May 14, 2020 Assessment & Plan (1) Pancreatitis, acute: * CT showing pancreatitis with possible necrosis * GI consulted * EGD/EUS 05/09 - esophagitis, gastritis, recommend Protonix daily for 3 months. * Per GI, can discontinue abx * GI signed off -- ok for d/c when medically stable * Abdominal pain improving but still present * Tolerated AHA diet this morning and had increased pain requiring IV Dilaudid * Discussed to wean pain medication as tolerated but would avoid IV if able to for remainder of the day --> she will attempt to utilize more 5mg oxycodone vs 10mg tablets * Kpad ordered for back pain * Lipase trending down but still elevated at 505 * LR back to 75cc/hr * Liquid diet to advance to low fiber -- can advance in AM if pain controlled * Labs in AM (2) Pancreatic duct stricture: * F/U EUS scheduled outpatient in May -- will need to keep this appt * PD pathology without malignancy on most recent but will need further investigation given nodularity on EUS (3) Superior mesenteric vein thrombosis: * Initial read on CT with artifact vs. partially occlusive thrombus of the superior mesenteric vein. GI discussed with radiology (Dr. Toure) with opinion that no better imaging available to r/o or confirm the SMV. * Will need to continue with anticoagulation for at least 3 months * Follow up EUS can be performed Feb and hopefully the inflammation is reduced enough that a better visual of the venous system can be attained. * INR 1.2 * Heparin transitioned to Lovenox 90 Q12 and Coumadin 5mg daily * Will need f/u with INR with [facility] * Discussed with Dr. Haq who recs for Lovenox/coumadin for any abdominal thrombus and would avoid NOAC. * Gave rx for CM to set up appt at [facility] * INR in AM (4) Chronic migraine: * Continue home topiramate scheduled, hold triptans for now for elevated blood pressure. * No headache reported (5) Liver nodule: * Two nodules incidentally noted on CT A/p; appeared unchanged from study in 2016 * no acute management (6) Renal stone: * 7 mm stone noted incidentally in L kidney on CT of abdomen * no acute management (7) Hypertension: * Stable * Continue home losartan when taking po (8) Hypokalemia: * Continued hypokalemia and had received IV replacement and placed on 20meq PO TID * Mag checked, wnl * Decreased oral supplementation to 20meq PO BID * BMP in AM with K wnl at 3.7 * BMP in AM (9) Hyperlipidemia: * Atorvastatin 40mg (10) Diabetes: * type II * Well controlled. * Last HgbA1C was 5.2 on 03/23/20. (HgBA1C has been below 6.5 since 11/2013) * Hold home Metformin * patient did not require any insulin during last admission * BSGs ACHS,with acceptable sugars * continue to monitor (11) Insomnia: * will hold home trazadone for now - patient has a number of sedating medications in addition to dilaudid for pain control. * Resume for sleep tonight (12) Depression with anxiety: * resumed home venlafaxine, chlorpromazine, and buspar Dispo: continued inpatient stay hopefully d/c tomorrow if INR acceptable/pain controlled CM to arranging home health and f/u with [facility] clinic at d/c will need f/u EUS outpatient with GI Admission and Anticipated Discharge Date Admission Date: May 10, 2020 Subjective Patient evaluated at lunch time. Ate regular tray last night and had increased pain to her LLQ, non-radiating. Had cholecystectomy but has her appendix. Discussed normal appendix on initial imaging but if increase n/v/or fever would repeat imaging. Nausea last night but nothing today. Pain also improved as today has gone on. Discussed possibly advanced too quickly and will continue with liquids through lunch and have a low fiber dinner tonight. Patient still with pain, but improved from days prior, 09/26 to epigastric. Heating pad sufficient at controlling back pain. Has been giving herself the Lovenox injections. Eating/drinking without issue this morning. No emesis. Making adequate urine and moving her bowels. No fever, chills, chest pain, shortness of breath, n/v/c, dysuria reported. Discussed INR and still 1.2 and would like to continue to monitor overnight and repeat in AM and will have f/u with [facility] clinic. Questions/concerns addressed. Review of Systems Review of Systems: All systems reviewed & are unremarkable except as noted in HPI & below Physical Exam Constitutional: well developed, well nourished and + obese; no acute distress Eyes: + anicteric sclerae and PERRL ENMT: mmm Neck: normal visual inspection and trachea midline Respiratory: normal respiratory effort, lungs clear to auscultation Cardiovascular: RRR, no murmur, no edema Gastrointestinal (Abdomen): Percussion/Palpation: + abdomen tender (tenderness with palpation epigastric region, RLQ - minimal) and abdomen soft; no guarding and abdomen not rigid Musculoskeletal: no cyanosis or clubbing, extremities motor strength 5/5 Skin: warm, dry Neurologic: PERRL, EOMI, accommodation nl, no face palsy, no dysarthria Psychiatric: Orientation: alert and oriented x 3 Genitourinary: NO [facility] Results & Data Results & Data ([facility]) Vital Signs (Past 12 Hours) Vital Signs Temp Pulse Resp BP Pulse Ox 05/14/20 07:08 36.8 C 68 19 133/78 93 Laboratory Results 05/14/20 05/14/20 05/14/20 Range/Units 11:47 08:03 06:22 WBC (4.8-10.8) K/uL RBC (4.2-5.4) M/uL Hgb (12.0-16.0) g/dL Hct (37-47) % MCV (80-100) fL MCH (25-34) pg MCHC (32-36) g/dL RDW Std Deviation (36.4-46.3) fL RDW Coeff of Natali (11.5-14.5) % Plt Count (130-400) K/uL MPV (7.4-10.4) fL Immature Gran % (Auto) % Neut % (Auto) % Lymph % (Auto) % [place] % (Auto) % Eos % (Auto) % Baso % (Auto) % Neut # (Auto) (1.4-6.5) K/uL Lymph # (Auto) (1.2-3.4) K/uL [place] # (Auto) (0.11-0.59) K/uL Eos # (Auto) (0-0.5) K/uL Baso # (Auto) (0-0.2) K/uL Immature Gran # (Auto) (0.00-0.02) K/uL PT (9.0-12.0) Seconds INR (0.9-1.1) Sodium (136-145) mmol/L Potassium (3.5-5.1) mmol/L Chloride (98-107) mmol/L Carbon Dioxide (21-32) mmol/L Anion Gap (3-11) BUN (7-18) mg/dl Creatinine (0.6-1.2) mg/dl Est Cr Clr Drug Dosing ml/min Est GFR ( Amer) Est GFR (Non-Af Amer) BUN/Creatinine Ratio (10-20) Glucose (70-99) mg/dl POC Glucose 134 H 140 H (70-99) mg/dl Calcium (8.5-10.1) mg/dl Total Bilirubin 0.3 (0.2-1) mg/dl Direct Bilirubin 0.1 (0-0.2) mg/dl AST 17 (15-37) U/L ALT 82 H (12-78) U/L Alkaline Phosphatase 103 (45-117) U/L Total Protein 6.6 (6.4-8.2) gm/dl Albumin 3.4 (3.4-5.0) gm/dl Lipase (73-393) U/L 05/14/20 05/14/20 05/14/20 Range/Units 06:22 06:22 06:22 WBC 3.64 L (4.8-10.8) K/uL RBC 4.15 L (4.2-5.4) M/uL Hgb 11.8 L (12.0-16.0) g/dL Hct 36.1 L (37-47) % MCV 87.0 (80-100) fL MCH 28.4 (25-34) pg MCHC 32.7 (32-36) g/dL RDW Std Deviation 43.6 (36.4-46.3) fL RDW Coeff of Natali 13.9 (11.5-14.5) % Plt Count 138 (130-400) K/uL MPV 11.1 H (7.4-10.4) fL Immature Gran % (Auto) 0.3 % Neut % (Auto) 59.1 % Lymph % (Auto) 28.8 % [place] % (Auto) 5.5 % Eos % (Auto) 5.8 % Baso % (Auto) 0.5 % Neut # (Auto) 2.15 (1.4-6.5) K/uL Lymph # (Auto) 1.05 L (1.2-3.4) K/uL [place] # (Auto) 0.20 (0.11-0.59) K/uL Eos # (Auto) 0.21 (0-0.5) K/uL Baso # (Auto) 0.02 (0-0.2) K/uL Immature Gran # (Auto) 0.01 (0.00-0.02) K/uL PT 12.1 H (9.0-12.0) Seconds INR 1.2 H (0.9-1.1) Sodium 144 (136-145) mmol/L Potassium 3.7 (3.5-5.1) mmol/L Chloride 114 H (98-107) mmol/L Carbon Dioxide 24 (21-32) mmol/L Anion Gap 6.0 (3-11) BUN 9 (7-18) mg/dl Creatinine 0.74 (0.6-1.2) mg/dl Est Cr Clr Drug Dosing 91.9 ml/min Est GFR ( Amer) 102.8 Est GFR (Non-Af Amer) 88.7 BUN/Creatinine Ratio 12.3 (10-20) Glucose 135 H (70-99) mg/dl POC Glucose (70-99) mg/dl Calcium 9.2 (8.5-10.1) mg/dl Total Bilirubin (0.2-1) mg/dl Direct Bilirubin (0-0.2) mg/dl AST (15-37) U/L ALT (12-78) U/L Alkaline Phosphatase (45-117) U/L Total Protein (6.4-8.2) gm/dl Albumin (3.4-5.0) gm/dl Lipase 505 H (73-393) U/L 05/13/20 05/13/20 Range/Units 20:14 17:18 WBC (4.8-10.8) K/uL RBC (4.2-5.4) M/uL Hgb (12.0-16.0) g/dL Hct (37-47) % MCV (80-100) fL MCH (25-34) pg MCHC (32-36) g/dL RDW Std Deviation (36.4-46.3) fL RDW Coeff of Natali (11.5-14.5) % Plt Count (130-400) K/uL MPV (7.4-10.4) fL Immature Gran % (Auto) % Neut % (Auto) % Lymph % (Auto) % [place] % (Auto) % Eos % (Auto) % Baso % (Auto) % Neut # (Auto) (1.4-6.5) K/uL Lymph # (Auto) (1.2-3.4) K/uL [place] # (Auto) (0.11-0.59) K/uL Eos # (Auto) (0-0.5) K/uL Baso # (Auto) (0-0.2) K/uL Immature Gran # (Auto) (0.00-0.02) K/uL PT (9.0-12.0) Seconds INR (0.9-1.1) Sodium (136-145) mmol/L Potassium (3.5-5.1) mmol/L Chloride (98-107) mmol/L Carbon Dioxide (21-32) mmol/L Anion Gap (3-11) BUN (7-18) mg/dl Creatinine (0.6-1.2) mg/dl Est Cr Clr Drug Dosing ml/min Est GFR ( Amer) Est GFR (Non-Af Amer) BUN/Creatinine Ratio (10-20) Glucose (70-99) mg/dl POC Glucose 112 H 140 H (70-99) mg/dl Calcium (8.5-10.1) mg/dl Total Bilirubin (0.2-1) mg/dl Direct Bilirubin (0-0.2) mg/dl AST (15-37) U/L ALT (12-78) U/L Alkaline Phosphatase (45-117) U/L Total Protein (6.4-8.2) gm/dl Albumin (3.4-5.0) gm/dl Lipase (73-393) U/L PG Care Time/CCT Total # of Minutes Spent Total Time Spent with Patient: Total time spent is greater than 50% in coordination of care (as documented) at patient's floor/unit and/or counseling patient: Coding Level of Care Code 19057 Subseq Hosp Care Lvl 2 Diagnoses Pancreatitis, acute K85.90 Pancreatitis type: unspecified pancreatitis type Acute pancreatitis complication: no infection or necrosis Pancreatic duct stricture K86.89 Superior mesenteric vein thrombosis K55.069 Chronic migraine G43.709 Liver nodule K76.89 Renal stone N20.0 Hypertension I10 Hypertension type: essential hypertension Hypokalemia E87.6 Hyperlipidemia E78.5 Hyperlipidemia type: unspecified Diabetes E11.9 Diabetes mellitus type: type 2 Diabetes mellitus [employer] insulin use: without senior care use Diabetes mellitus complication status: without complication Insomnia G47.00 Insomnia type: unspecified Depression with anxiety F41.8 (1) Pancreatitis, acute Pancreatitis type: unspecified pancreatitis type Acute pancreatitis complication: no infection or necrosis Qualified Code(s): K85.90 - Acute pancreatitis without necrosis or infection, unspecified (2) Hypertension Hypertension type: essential hypertension Qualified Code(s): I10 - Essential (primary) hypertension (3) Hyperlipidemia Hyperlipidemia type: unspecified Qualified Code(s): E78.5 - Hyperlipidemia, unspecified (4) Diabetes Diabetes mellitus type: type 2 Diabetes mellitus senior care insulin use: without senior care use Diabetes mellitus complication status: without complication Qualified Code(s): E11.9 - Type 2 diabetes mellitus without complications (5) Insomnia Insomnia type: unspecified Qualified Code(s): G47.00 - Insomnia, unspecified
[2020-05-14] MEDS: WARFARIN SOD 5 MG TAB PO SCH (15:46)
[2020-05-14] MEDS ORDERED: WARFARIN SOD 2.5 MG TAB PO ONE (17:43)
[2020-05-14] MEDS: busPIRone 15 MG TAB PO SCH (21:19)
[2020-05-14] MEDS: chlorproMAZINE HCL 10 MG TAB PO SCH (21:22)
[2020-05-15] MEDS: oxyCODONE HCL IR 5 MG TAB (IMMEDIATE RELEASE) PO PRN ×3 (04:21→14:22)
[2020-05-15] MEDS: LACTATED RINGER'S 1,000 ML IV SCH (06:07)
[2020-05-15 07:02] LABS: Hematocrit (blood only) 36.1 % (37-47); Hemoglobin 11.6 g/dL (12.0-16.0); Mean Corpuscular Hemoglobin 28.4 pg (25-34); Mean Corpuscular Hgb Conc 32.1 g/dL (32-36); Mean Corpuscular Volume 88.3 fL (80-100); Mean Platelet Volume 11.5 fL (7.4-10.4); Platelet Count 148 K/uL (130-400); RDW Coefficient of Variation 14.1 % (11.5-14.5); RDW Standard Deviation 45.5 fL (36.4-46.3); Red Blood Count 4.09 M/uL (4.2-5.4); White Blood Count 3.79 K/uL (4.8-10.8)
[2020-05-15 07:10] LABS: INR 1.2 (0.9-1.1); Prothrombin Time 12.4 Seconds (9.0-12.0)
[2020-05-15 07:32] LABS: Alanine Aminotransferase 62 U/L (12-78); Albumin Level 3.3 gm/dl (3.4-5.0); Aspartate Aminotransferase 13 U/L (15-37); BUN Creatinine Ratio 12.4 (10-20); Bilirubin Direct < 0.1 mg/dl (0-0.2); Blood Urea Nitrogen 9 mg/dl (7-18); Calcium 8.8 mg/dl (8.5-10.1); Carbon Dioxide 24 mmol/L (21-32); Chloride 115 mmol/L (98-107); Creatinine Clr Calc Pharmacy 97.1 ml/min; Est GFR (African American) 109.9; Est GFR (Non-African American) 94.8; Glucose 117 mg/dl (70-99); Lipase 356 U/L (73-393); Potassium 3.9 mmol/L (3.5-5.1); Sodium 144 mmol/L (136-145)
[2020-05-15 07:35] LABS: Alkaline Phosphatase 97 U/L (45-117); Bilirubin,Total 0.3 mg/dl (0.2-1); Total Protein 6.4 gm/dl (6.4-8.2)
[2020-05-15] MEDS: PANTOprazole 40 MG TAB PO SCH (08:34)
[2020-05-15] MEDS: FERROUS SULFATE 325 MG TAB PO SCH (08:34)
[2020-05-15] MEDS: OXYBUTYNIN CHLORIDE XL 5 MG TABCR PO SCH (08:34)
[2020-05-15] MEDS: ATORVASTATIN 40 MG TAB PO SCH (08:34)
[2020-05-15] MEDS: DOCUSATE SODIUM 100 MG CAP PO SCH (08:34)
[2020-05-15] MEDS: LOSARTAN POTASSIUM 25 MG TAB PO SCH (08:34)
[2020-05-15] MEDS: tiZANidine HCL 4 MG TABLET PO PRN (08:35)
[2020-05-15] MEDS: VENLAFAXINE HCL XR 75 MG CAPXR PO SCH (08:35)
[2020-05-15] MEDS: MULTIVITAMIN TAB PO SCH (08:35)
[2020-05-15] MEDS: TOPIRAMATE 100 MG TAB PO SCH (08:35)
[2020-05-15] MEDS: ENOXAPARIN 100 MG/1ML SYR SQ SCH (08:35)
[2020-05-15] MEDS: POTASSIUM CHLORIDE CRTAB 20 MEQ TABCR PO SCH (08:35)
[2020-05-15] MEDS: VENLAFAXINE HCL XR 150 MG CAPXR PO SCH (08:35)
[2020-05-15] MEDS: GABAPENTIN 800 MG TAB PO SCH (08:43)
--- NOTE | 2020-05-15 08:56 | Discharge Summary ---
Date of Service May 15, 2020 Admission HPI Per Admitting Provider Mrs. Trinh is a 60 yo woman who was recently admitted to [facility] at the end of March 2020 for acute pancreatitis who presented with several days of nausea/vomiting (non-bloody, non-bilious) and epigastric pain. She has been unable to tolerate PO intake over the past day. She describes the epigastric pain as bandlike, with radiation to her back. Of note, she is s/p laparoscopic cholecystectomy performed in 2013 for symptomatic cholelithiasis. She denies any Etoh use. TG were checked last admission and were normal. She had an MRCP last admission, which was negative for choledocholithiasis but did show concern for pancreatic duct stricture. She was advised to have an outpatient ERCP with EUS, which is reportedly scheduled with [facility] in May. Today, she developed a migraine headache (unilateral head pain with associated photophobia), which she attributes to being dehydrated. She has a script for Rizatriptan, which she took before coming to the ED, however she vomited it shortly thereafter. In the ED, she was afebrile. Her WBC was normal. Her K was low at 3.3. Her Ca2+ was normal. UA 2+ for LE, > 30 WBCs, neg nitrites, neg bacteria. Urine culture pending. Lipase 652. CT of abdomen and pelvis showing minimal stranding surrounding the pancreas (thought to be indicative of residual pancreatitis). No abscess, pseudocyst, or necrosis. (Official read pending). She was given 0.5mg hydromorphone, Zofran and 1 liter of normal saline. Admission Exam Per Admitting Provider Constitutional: WD/WN, vitals as above cooperative; no acute distress Eyes: + anicteric sclerae ENMT: external ear and nose normal, oropharynx normal Neck: normal visual inspection and trachea midline Respiratory: normal respiratory effort, lungs clear to auscultation Auscultation: no crackles and no wheezes Cardiovascular: RRR, no murmur, no edema Heart Sounds: normal S1 and normal S2 Extremities: no pedal edema Gastrointestinal (Abdomen): Inspection/Auscultation: abdomen normal to inspection Percussion/Palpation: + abdomen tender (epigastrium, RUQ, LUQ) and abdomen soft; no guarding + CVA tenderness on R Skin: no rashes, warm and dry Psychiatric: A+Ox3, euthymic affect Principal Diagnosis Pancreatitis with Necrosis Discharge Exam Constitutional well developed, well nourished and + obese; no acute distress Eyes + anicteric sclerae and PERRL ENMT mmm Neck normal visual inspection and trachea midline Respiratory normal respiratory effort, lungs clear to auscultation Cardiovascular RRR, no murmur, no edema Gastrointestinal (Abdomen) Inspection/Auscultation: abdomen normal to inspection and normal bowel sounds Percussion/Palpation: + abdomen tender (minimally, diffuse/epigastric) and abdomen soft; no guarding and abdomen not rigid Musculoskeletal no cyanosis or clubbing, extremities motor strength 5/5 Skin warm, dry Neurologic PERRL, EOMI, accommodation nl, no face palsy, no dysarthria Psychiatric Orientation: alert and oriented x 3 Genitourinary no CVA tenderness no botello Lymphatic no cervical or axillary lymphadenopathy Discharge Data Allergies Allergy/AdvReac Type Severity Reaction Status Date / Time Bactrim Allergy Intermediate itching, Verified 06/01/17 10:40 chest tightness latex Allergy Intermediate rash Verified 05/07/20 23:23 sulfamethoxazole Allergy Intermediate itching, Verified 05/07/20 23:23 chest tightness trimethoprim Allergy Intermediate itching, Verified 05/07/20 23:23 chest tightness adhesive Allergy Unknown ITCHY SKIN Verified 05/07/20 23:23 doxycycline Allergy nausea and Verified 05/07/20 23:23 vomiting clindamycin AdvReac Severe Diarrhea Verified 05/07/20 23:23 Consultations 05/07/20 23:31 ED Decision to Admit Stat 05/08/20 08:56 Consult Gastroenterology Routine Procedures Performed Operation Date: 05/09/20 09:10 Actual Procedures p Upper Endoscopic Ultrasonography - Jason Hill MD Ordered Studies 05/07/20 20:47 CT abd pelvis IV con only Urgent 05/09/20 10:58 US upper EUS PACS images Routine Hospital Course (1) Pancreatitis, acute: Admitted for n/v CTAP c/w acute pancreatitis with interstitial edema vs developing pancreatic necrosis. No fluid collection identified. Prior pancreatitis with PD stricture on prior studies (will need ERCP outpatient previously schedule for evaluation of suspected PD stricture) GI consulted --> EGD on 05/[address] Hill showed LA grade B esophagitis without bleeding, mild inflammation/erosions/edema within gastric body. EUS with hypodensities and parenchymal abnormalities consisiting of hyperechoic strands, foci and lobularity of entire pancrease. ill defined small hypodense area in uncinate procress likely related to ongoing pancreatitis/necrosis. fine needle aspiration performed of those as well as from lymph node in lala hepatis region Pathology appears from pancreas without tumor or inflammatory infiltrate, however lymph node unable to exclude low grade lymphoma. Will need f/u outpatient To continue protonix 40mg daily for 3 months F/u with GI for outpt EUS for further evaluation Was treated with IVF, pain control, antiemetics Advanced diet too quickly initially and had worsening pain --> decreased and as lipase decreased was able to tolerate low fat diet without issue. 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 INR only up to 1.2 with 5mg coumadin and 90mg BID lovenox. Instructed to take 10mg (got 7.5 mg on 05/14 evening) on day of discharge and then 5mg daily and will have home health repeat INR on wednesday and she will have f/u with coag clinic on Wednesday. Anticoagulation to continue for minimum of three months. Discharged with short course of pain medication but to utilize tylenol for all other non-severe pain. (2) Pancreatic duct stricture: F/U EUS scheduled outpatient in May -- will need to keep this appt pathology without malignancy on most recent but will need further investigation given nodularity on EUS (3) Superior mesenteric vein thrombosis: Initial read on CT with artifact vs. partially occlusive thrombus of the superior mesenteric vein. GI discussed with radiology (Dr. Toure) with opinion that no better imaging available to r/o or confirm the SMV. Will need to continue with anticoagulation for at least 3 months Follow up EUS can be performed Feb and hopefully the inflammation is reduced enough that a better visual of the venous system can be attained. INR 1.2 Heparin transitioned to Lovenox 90 Q12 and Coumadin 5mg daily Will need f/u with INR with coag clinic Discussed with Dr. Haq who recs for Lovenox/coumadin for any abdominal thrombus and would avoid NOAC. Gave rx for CM to set up appt at coag clinic INR wednesday with home health and coag clinic on Wednesday next week (4) Chronic migraine: Continued home topiramate scheduled, held triptans for elevated blood pressure -- resumed at discharge No headache reported (5) Liver nodule: Two nodules incidentally noted on CT A/p; appeared unchanged from study in 2016 no acute management f/u PCP (6) Renal stone: 7 mm stone noted incidentally in L kidney on CT of abdomen no acute management f/u outpatient with PCP (7) Hypertension: Stable BP 128/86 Continued losartan (8) Hypokalemia: Continued hypokalemia during admisssion and needed replacement Titrated replacement and RESOLVED potassium 4.0 on day of discharge Did not sent with oral replacement, but rather repeat BMP on wednesday with home health and can send supplementation if continues to be low now that she is eating more regularly Mag wnl (9) Hyperlipidemia: Atorvastatin 40mg (10) Diabetes: type II Well controlled. Last HgbA1C was 5.2 on 03/23/20. (HgBA1C has been below 6.5 since 11/2013) held home meds while inpatient. BSGs acceptable (11) Insomnia: Trazodone (12) Depression with anxiety: Resumed home venlafaxine, chlorpromazine, and buspar once taking PO Discharged home with home health I Total Time Total Time Spent Total Time Spent (In Minutes): 80 Discharge Plan Discharge Items Patient Disposition: Home - Self-Care Reason For Visit: vomiting, nausea Discharge Diagnosis: Pancreatitis Goals: You have been hospitalized for an urgent problem which required surgery. During your stay at [facility], we have made an effort to correct the problem that brought you to the hospital while keeping you as comfortable as possible. Surgery and medications were used to bring your condition under control and your discharge instructions will include directions for any medications you should take after leaving the hospital. Please make sure to follow the advice of your surgeon regarding follow up with the surgeon and with your primary care provider. Activity: Resume your previous activity Non-emergency contact: Primary Care Provider Call non-emergency contact if: you have any medication questions, your symptoms worsen, your pain is not controlled, your pain is worsening and you have a fever Follow-up/Referrals: Brent Dye III, CRNP [Primary Care Provider] - 05/20/20 4:00 pm Nighat Haq MD, PhD [Pathologist] - 05/20/20 9:00 am (You have an appointment WedMay 20 [id number] Please enter throug Entrance E) Jason Hill MD [Hospitalist] - 06/11/20 6:30 am (May) Diet: Carb Consistent or DM2, Heart Healthy, Low Fiber and Low Fat Ambulatory Orders: Basic Metabolic Panel (Routine) Timeframe: 2 Days Location: Determined by Patient Ordered By: Maribel Steinberg Prothrombin Time INR (Timed) Timeframe: 2 Days Location: Determined by Patient Ordered By: Maribel Steinberg Addtl Attending Provider Instructions: You have been hospitalized for nausea and vomiting. Imaging showed pancreatitis with necrosis. Prior EGD had some stricture/narrowing of your pancreatic duct and biopsies were taken. These were negative for malignancy thus far, but you should keep your follow up appointment in May with Gastroenterology, Dr. Hill for outpatient endoscopic ultrasound/ERCP for further evaluation. You were also found to have inflammation of your GI tract and should continue daily Protonix 40mg for the next 3 months. A prescription has been sent. You were treated with IV fluids and pain control and have been sent a short prescription for pain control at discharge. The pain may still be present and will improve over time. If you have worsening pain, fever, chest pain, or other symptoms that are concerning for you, please return to the emergency department. Please avoid any alcohol as this increases your chances of flaring up pancreatitis. Also avoid NSAIDs/ibuprofen/Motrin as this will increase irritation of your GI lining as well. Use Tylenol for non-severe pain. You should utilize over the counter stool softeners like miralax/colace to help keep your bowels regular while on pain medication. Imaging showed a thrombus of your superior mesenteric vein. You have been placed on anticoagulation and will continue Lovenox twice daily and Coumadin 5mg daily until INR is therapeutic. You should take 10mg Coumadin tonight (2 of the 5 mg tablets) and taken them daily at the same time. They will check your INR on Wednesday with home health along with a BMP to ensure you do not need any further potassium supplementation. You have been set up an appointment with the coagulation clinic for Wednesday and Dr. Haq will help to transition you to Coumadin daily alone, which will continue for at least 3 months. Please monitor for any bleeding and report that to your PCP hector if you notice any increase bleeding/nosebleed/blood in your urine or stool. You will also need follow up on lung and liver nodules and can be further evaluated by GI at your appointment for the liver nodule and your PCP for the lung. Please avoid smoking. These nodules seem to be stable from previous imaging. Please keep follow up appointments with primary care, gastroenterology (Dr. Hill's office number is ), and the anticoagulation clinic. It has been a pleasure being a part of the medical team providing for you while you have been in the hospital. Take care! 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 Never take a double dose. If you miss a dose, take it as soon as you remember * It is important for your doctor to monitor your prothrombin time (PT). This is a lab test * Keep your appointment for lab tests Risk of Adverse Drug Reactions and Interactions: * Warfarin increases your risk of bleeding * The food you eat and other medications you take can affect how Warfarin works in your body * Ask your doctor about daily aspirin therapy * It is very important to talk with your doctor about all of the other medicines, antibiotics, vitamins or herbal products that you are taking * All of your medication must be approved by your doctor, including new medicines, as well as medicines you have taken before you started taking Warfarin Diet: * In order for Warfarin to work properly, it is important to keep your intake of Vitamin K as consistent as possible * You should avoid any sudden change in Vitamin K intake * Report any significant changes in your diet or weight to your doctor Call your Primary Care doctor if you experience any of the following: * Swelling or Pain in your leg * Sudden, continuous pain deep in a muscle * Pain that worsens when you are active or when you stand still for a long time * Chest Pain * Sudden Shortness of Breath * Rapid or pounding heart beat * Fainting * Dizziness * Cough with blood or bloody sputum * Sweating more than normal * Bruises * Heavy or uncontrolled bleeding * Blood in your urine, stool or vomit * Black or tarry stools Caring for Your Self at Home: * Avoid sitting, standing or lying down for long periods without moving your legs and feet * When traveling by car, stop to get out and move around at least once every 3 hours * On long airplane, train or bus rides, get up and move around when possible * If you can't get up, wiggle your toes and tighten your calves to keep your blood moving Follow Up: It is important for you to keep your follow up appointments with your medical provider. Pending Studies at Discharge: No Stand-Alone Forms: My [facility], Smoking Cessation Medications and DC Order Prescriptions: New warfarin 5 mg Tablet 5 mg PO DAILY@1600 Qty: 30 RF: 0 oxycodone 5 mg Tablet 5 - 10 mg PO Q4 PRN (Reason: pain) Qty: 10 RF: 0 enoxaparin 100 mg/mL Syringe 90 mg subcut Q12H 10 Days Qty: 18 RF: 0 docusate sodium 100 mg Capsule 100 mg PO BID Qty: 20 RF: 0 pantoprazole 40 mg Tablet,Delayed Release (Dr/Ec) 40 mg PO QAM 30 Days Qty: 30 RF: 3 Continued atorvastatin 40 mg tablet 40 mg PO DAILY Qty: 30 RF: 5 losartan 25 mg tablet 25 mg PO DAILY Qty: 30 RF: 5 ergocalciferol (vitamin D2) [Vitamin D2] 1,250 mcg (50,000 unit) capsule 50,000 units PO WK Qty: 12 RF: 1 oxybutynin chloride 10 mg tablet extended release 24hr 10 mg PO DAILY Qty: 30 RF: 5 sumatriptan succinate 6 mg/0.5 mL pen injector 6 mg subcut .COMPLEX PRN (Reason: Migraine Headache) Qty: 1 RF: 0 tramadol 50 mg tablet 50 mg PO .COMPLEX PRN (Reason: pain) Qty: 20 RF: 0 tizanidine 4 mg tablet 4 mg PO QID PRN (Reason: muscle spasticity) Qty: 90 RF: 5 multivitamin [Daily Multi-Vitamin] tablet 1 tab PO DAILY RF: 0 ferrous sulfate 325 mg (65 mg iron) tablet,delayed release (DR/EC) 325 mg PO BID Qty: 60 RF: 5 promethazine 25 mg tablet 25 mg PO BID PRN (Reason: migraine, nausea) Qty: 60 RF: 1 gabapentin 800 mg tablet 800 mg PO TID Qty: 90 RF: 5 topiramate 100 mg capsule,sprinkle,ER 24hr 100 mg PO DAILY 90 Days Qty: 90 RF: 1 venlafaxine 150 mg capsule,extended release 24hr 150 mg PO QAM Qty: 30 RF: 0 Emgality Pen 120 mg/mL pen injector 120 mg SQ MONTHLY 30 Days Qty: 1 RF: 5 rizatriptan 10 mg tablet 10 mg PO .COMPLEX PRN (Reason: Migraine Headache) 90 Days Qty: 27 RF: 1 venlafaxine 75 mg capsule,extended release 24hr 75 mg PO QAM RF: 0 clonazepam 0.5 mg tablet 0.5 mg PO .COMPLEX PRN (Reason: Unknown) RF: 0 buspirone 30 mg tablet 30 mg PO HS RF: 0 trazodone 50 mg tablet 50 mg PO HS RF: 0 chlorpromazine 10 mg tablet 10 mg PO HS RF: 0 Discontinued ibuprofen 600 mg tablet 600 mg PO TID PRN (Reason: pain) Qty: 90 RF: 5 Discharge Orders: Discharge Order (Routine); Ordered 05/15/20 Ordered By: Maribel Aguilar/Other Patient Handouts: What to Know When TakingWarfarin, Enoxaparin injection Admission Data Admit Date/Time: 05/10/20 09:07 Attending Provider: Louis Saavedra Admit Provider: Leana Morales Primary Care Provider: Brent Dye III Other Providers: Jason Hill ; Bryce Bond ; [facility] Other Interventions: Discharge Summary Assessment (RN) Last Done: 05/15/20 13:45 Coding Level of Care Code D/C Day Management >30 mins Diagnoses Pancreatitis, acute K85.90 Acute pancreatitis complication: no infection or necrosis Pancreatitis type: unspecified pancreatitis type Pancreatic duct stricture K86.89 Superior mesenteric vein thrombosis K55.069 Chronic migraine G43.709 Liver nodule K76.89 Renal stone N20.0 Hypertension I10 Hypertension type: essential hypertension Hypokalemia E87.6 Hyperlipidemia E78.5 Hyperlipidemia type: unspecified Diabetes E11.9 Diabetes mellitus complication status: without complication Diabetes mellitus usp insulin use: without intermediate designer use Diabetes mellitus type: type 2 Insomnia G47.00 Insomnia type: unspecified Depression with anxiety F41.8
== END 2020-05-15 14:32 | disposition home health service (06) | DRG 438 ==
LOC: ED 19:47 → 3W 19:47 → SUATTDRO 05-08 00:09 → 3W 05-08 02:06 → SUATTDRO 05-10 09:07

== ENCOUNTER 2020-06-12 19:49 | Observation (INO) ==
[2020-06-12 21:43] LABS: Basophils # (auto) 0.02 K/uL (0-0.2); Basophils % (auto) 0.2 %; Eosinophils # (auto) 0.07 K/uL (0-0.5); Eosinophils % (auto) 0.8 %; Hematocrit (blood only) 39.7 % (37-47); Hemoglobin 13.5 g/dL (12.0-16.0); Immature Granulocytes # (auto) 0.02 K/uL (0.00-0.02); Immature Granulocytes % (auto) 0.2 %; Lymphocytes # (auto) 1.48 K/uL (1.2-3.4); Lymphocytes % (auto) 17.8 %; Mean Corpuscular Hemoglobin 28.5 pg (25-34); Mean Corpuscular Volume 83.8 fL (80-100); Mean Platelet Volume 11.2 fL (7.4-10.4); Monocytes # (auto) 0.56 K/uL (0.11-0.59); Monocytes % (auto) 6.7 %; Neutrophils # (auto) 6.17 K/uL (1.4-6.5); Neutrophils % (auto) 74.3 %; Platelet Count 185 K/uL (130-400); RDW Coefficient of Variation 13.4 % (11.5-14.5); RDW Standard Deviation 40.2 fL (36.4-46.3); Red Blood Count 4.74 M/uL (4.2-5.4); White Blood Count 8.32 K/uL (4.8-10.8)
[2020-06-12] MEDS ORDERED: ONDANSETRON INJ 2 MG/ML 2 ML VIAL IV STA (21:45)
[2020-06-12] MEDS: HYDROmorphone INJ 0.5 MG/0.5 ML SYR IV PRN ×2 (21:50→22:30)
[2020-06-12 22:05] LABS: Albumin Level 4.4 gm/dl (3.4-5.0); BUN Creatinine Ratio 13.9 (10-20); Calcium 9.4 mg/dl (8.5-10.1); Creatinine Clr Calc Pharmacy 65.3 ml/min; Est GFR (Non-African American) 65.6; Potassium 3.4 mmol/L (3.5-5.1)
[2020-06-12 22:08] LABS: Albumin Globulin Ratio 1.4 (0.9-2); Bilirubin,Total 0.4 mg/dl (0.2-1); Globulin 3.2 gm/dl (2.5-4.0); Total Protein 7.6 gm/dl (6.4-8.2)
--- NOTE | 2020-06-12 22:57 | Emergency Department Note ---
Impression & Plan Acute pancreatitis ED Provider Note INFORMANT: Patient ED PROVIDER(S): Doroteo Vincent MD CHIEF COMPLAINT: Abdominal pain PLAN: Disposition: Admitted Condition: Good Outpatient prescription management: none Referral: None MEDICAL DECISION MAKING: Patient presented with upper abdominal pain. She was concerned about pancreatitis. She just had a EGD performed. The patient had an IV established. She was given IV Zofran and Dilaudid. She did feel better with this. The patient underwent CT imaging and blood work. Her blood work was unremarkable except for elevated lipase. CT scan was concerning for pancreatitis. The patient was started on lactated Ringer's. She was given additional Zofran. Consultation was made with internal medicine, Dr. Osorio and the patient was evaluated for further management. Triage Nursing notes reviewed and agree them. Vital Signs: reviewed and remarkable for no significant abnormalities Differential diagnosis: Appendicitis, pancreatitis, infections, diverticulitis, UTI, obstruction, mesenteric ischemia, aortic pathology, inflammatory bowel disease, renal colic, PUD, biliary pathology, hernia, volvulus, constipation, as well as other pathologies. Diagnostics interpreted by me: Cardiac Monitoring:Cardiac monitoring ordered by me: The patient was placed on continuous cardiac monitoring and observed. It revealed a normal sinus rhythm at 85 beats per minute without ectopy or evidence of dysrhythmia. Imaging studies: CT scan concerning for acute pancreatitis. I refer you to the EMR for further details. Consultation(s): [facility] service HPI: The patient is a 60 year old female who presents to the Emergency Room with complaints of upper abdominal pain. This started yesterday after EGD and is radiating to her back. She is concerned about pancreatitis as this feels similar. The patient also notes the following associated symptoms, nausea vomiting. The patient has found no relieving factors. Current pain is rated as 8/10. Pt denies LOC, headache, fevers, chills, diaphoresis, visual changes, n harjit pain, chest pain, breathing difficulties, back pain, melena, hematochezia, urinary symptoms, numbness, weakness, lymphadenopathy, rash, or other complaints. ROS: See above HPI for pertinent positives & negatives. A total of 10 systems reviewed and were otherwise negative. PAST MEDICAL HISTORY:See Below , pancreatitis PAST SURGICAL HISTORY:See Below, EGD FAMILY HISTORY:See Below SOCIAL HISTORY:See Below, no alcohol HOME MEDICATIONS:See Below ALLERGIES:See Below VITALS:See Below PHYSICAL EXAMINATION: GENERAL: Awake, alert, uncomfortable-appearing, in no distress HENT: Normocephalic, atraumatic. Oropharynx unremarkable. EYES: Normal conjunctiva. Sclera non-icteric. NECK: Inspection normal. Non-tender. Supple. No nuchal rigidity. FROM. No masses. RESPIRATORY: Clear to auscultation. No wheezes. No rales. Normal respiratory effort. CARDIAC: Normal rate. Normal rhythm. No murmurs. No rubs. Extremities warm and well perfused. Pulses equal. No JVD. GI: Soft, non-distended. Epigastric tenderness to palpation. No rebound or guarding. No masses. RECTAL: Deferred. MUSCULOSKELETAL: Atraumatic. Chest examination reveals no tenderness. The back is symmetrical on inspection without obvious abnormality. There is no CVA tenderness to palpation. No joint edema. LOWER EXTREMITIES: Calves are equal size bilaterally and non-tender. No edema. No discoloration. NEURO: Normal sensorium. No sensory or motor deficits noted. SKIN: No rash or jaundice noted. Doroteo Vincent MD Past Med/Surg History Medical History (Updated 06/12/20 @ 22:55 by Doroteo Vincent MD) Acute pancreatitis Depression (09/09/12) Diabetes Headache History of uterine fibroid Hyperlipidemia Hypertension Hypokalemia Migraine (09/09/12) Nausea & vomiting Pancreatic duct stricture Pancreatitis, acute Panic attack (09/09/12) PMB (postmenopausal bleeding) Surgical History History 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 History of laparoscopic cholecystectomy S/P surgical removal of pilonidal cyst Family History Sister Rheumatoid arthritis Steatorrhea Mother Hypertension Father Parkinson disease Denies family history of Ovarian cancer Prostate cancer Myocardial infarction Breast cancer Colorectal cancer Social History Smoking Status: Never smoker Tobacco Type: Cigarettes Age Started Using Tobacco: 21; Age Quit Using Tobacco: 58; packs per day: 1; Years Smoked: 37; Cigarettes Per Day: 2; Number of Years Since Quit: 1; Second Hand Exposure: No; Hx Alcohol Use: No Hx Substance Use: No Preferred Language: Urdu Communication Ability: Effective Visual Impairment: No Limitations Hearing Ability: Normal Juice Tester Required: No Beliefs That Will Affect Care: None marital status: Current Living Situation: Family Current Living Situation Comment: sister current occupational status: disabled Feels Safe at Home: Yes Childhood Exposure to Second-Hand Smoke: No Dental Care, Regularly: No Physical Activity Frequency: Does not Exercise Seatbelt Use: always Sunscreen Use: Yes Assistive Devices: None Allergies Allergies Allergy/AdvReac Type Severity Reaction Status Date / Time latex Allergy Intermediate rash Verified 06/12/20 23:37 sulfamethoxazole Allergy Intermediate itching, Verified 06/12/20 23:37 chest tightness trimethoprim Allergy Intermediate itching, Verified 06/12/20 23:37 chest tightness adhesive Allergy Unknown ITCHY SKIN Verified 06/12/20 23:37 clindamycin AdvReac Severe Diarrhea Verified 06/12/20 23:37 doxycycline AdvReac Intermediate nausea and Verified 06/12/20 23:37 vomiting Home Meds Home Medications Medication Instructions Recorded Confirmed multivitamin 1 tab PO DAILY 10/26/18 06/12/20 venlafaxine 150 mg 150 mg PO QAM #30 cap 01/24/19 06/12/20 capsule,extended release 24 hr clonazepam 0.5 mg tablet 0.25 mg PO HS PRN tab 01/04/20 06/12/20 buspirone 30 mg PO HS 04/16/20 06/12/20 chlorpromazine 10 mg PO HS 04/16/20 06/12/20 trazodone 50 mg PO HS 04/16/20 06/12/20 venlafaxine 75 mg capsule,extended 37.5 mg PO QAM cap 05/22/20 06/12/20 release 24 hr acetaminophen [Tylenol Extra 1,000 mg PO DIRECTED PRN 06/12/20 06/12/20 Strength] diphenhydramine HCl [Benadryl] 25 mg PO Q6H PRN 06/12/20 06/12/20 Previous Rx's Medication Instructions Recorded atorvastatin 40 mg tablet 40 mg PO DAILY #30 tab 06/20/19 losartan 25 mg tablet 25 mg PO DAILY #30 tab 10/13/19 galcanezumab-gnlm 120 mg/mL 120 mg SQ MONTHLY 30 Days #1 ml 01/04/20 subcutaneous pen injector rizatriptan 10 mg tablet 10 mg PO .COMPLEX PRN 90 Days #27 01/04/20 tab sumatriptan succinate 6 mg/0.5 mL 6 mg SUBCUT .COMPLEX PRN #1 ml 03/18/20 subcutaneous pen injector gabapentin 800 mg tablet 800 mg PO TID #90 tab 04/10/20 topiramate 100 mg capsule 100 mg PO DAILY 90 Days #90 ea 04/10/20 sprinkle,extended release 24 hr promethazine 25 mg tablet 25 mg PO BID PRN #60 tab 04/25/20 tizanidine 4 mg tablet 4 mg PO QID PRN #90 tab 05/01/20 docusate sodium 100 mg PO BID #20 cap 05/15/20 pantoprazole 40 mg PO QAM 30 Days #30 tab 05/15/20 ferrous sulfate 325 mg (65 mg 325 mg PO BID #60 tab 05/23/20 iron) tablet,delayed release metformin 500 mg tablet,extended 1,000 mg PO DAILY #180 tab 05/23/20 release 24 hr oxybutynin chloride 10 mg 10 mg PO DAILY #30 tab 05/24/20 tablet,extended release 24 hr enoxaparin 150 mg/mL subcutaneous See Rx Instructions SUBCUT Q24H 05/29/20 syringe #10 syr ergocalciferol (vitamin D2) 1,250 50,000 unit PO WK #12 cap 05/30/20 mcg (50,000 unit) capsule warfarin 5 mg tablet See Rx Instructions PO UD #40 tab 06/07/20 Results & Data (ED) Vital Signs Vital Signs - 24 hr 06/12/20 19:55 06/12/20 21:36 06/12/20 21:37 Temperature 36.8 C Temperature Source Temporal Artery Scan Pulse Rate 108 H 94 H Pulse Rate [Right Finger] Pulse Rate from SpO2 Sensor 94 H Respiratory Rate 18 27 H Respiratory Effort / Characteristics Respiratory Depth Normal Blood Pressure 164/100 H 161/93 H Blood Pressure [Right Arm] Blood Pressure Mean 121 115 Blood Pressure Mean [Right Arm] Blood Pressure Position Sitting Blood Pressure Position [Right Arm] Pulse Oximetry 98 91 96 Oxygen Delivery Method Room Air Room Air Sepsis Recent Fever Within 48 Hours No Sepsis New/Unexplained Change in Mental Status No Sepsis Action Taken by Nursing No Action Required 06/12/20 21:39 06/12/20 21:56 06/12/20 22:00 Temperature Temperature Source Pulse Rate 93 H 92 H Pulse Rate [Right Finger] 85 Pulse Rate from SpO2 Sensor 93 H 91 H Respiratory Rate 23 27 H 29 H Respiratory Effort / Characteristics Non-Labored Respiratory Depth Normal Blood Pressure Blood Pressure [Right Arm] 161/93 H Blood Pressure Mean Blood Pressure Mean [Right Arm] 115 Blood Pressure Position Blood Pressure Position [Right Arm] Pulse Oximetry 95 93 93 Oxygen Delivery Method Room Air Sepsis Recent Fever Within 48 Hours Sepsis New/Unexplained Change in Mental Status Sepsis Action Taken by Nursing 06/12/20 22:10 06/12/20 22:20 06/12/20 22:30 Temperature Temperature Source Pulse Rate 94 H 89 88 Pulse Rate [Right Finger] Pulse Rate from SpO2 Sensor 88 Respiratory Rate 23 28 H Respiratory Effort / Characteristics Respiratory Depth Blood Pressure 160/92 H Blood Pressure [Right Arm] Blood Pressure Mean 114 Blood Pressure Mean [Right Arm] Blood Pressure Position Blood Pressure Position [Right Arm] Pulse Oximetry 92 Oxygen Delivery Method Sepsis Recent Fever Within 48 Hours Sepsis New/Unexplained Change in Mental Status Sepsis Action Taken by Nursing 06/12/20 22:31 06/12/20 23:37 06/13/20 00:35 Temperature Temperature Source Pulse Rate 88 Pulse Rate [Right Finger] 89 85 Pulse Rate from SpO2 Sensor 89 Respiratory Rate 25 H 16 16 Respiratory Effort / Characteristics Respiratory Depth Normal Normal Blood Pressure Blood Pressure [Right Arm] 150/92 H 160/86 H Blood Pressure Mean Blood Pressure Mean [Right Arm] 111 110 Blood Pressure Position Blood Pressure Position [Right Arm] Lying Lying Pulse Oximetry 93 96 98 Oxygen Delivery Method Room Air Room Air Sepsis Recent Fever Within 48 Hours Sepsis New/Unexplained Change in Mental Status Sepsis Action Taken by Nursing Laboratory Data Result diagrams: 06/12/20 21:28 06/12/20 21:28 Lab Results 06/12/20 06/12/20 06/13/20 Range/Units 21:28 21:28 01:43 WBC 8.32 (4.8-10.8) K/uL RBC 4.74 (4.2-5.4) M/uL Hgb 13.5 (12.0-16.0) g/dL Hct 39.7 (37-47) % MCV 83.8 (80-100) fL MCH 28.5 (25-34) pg MCHC 34.0 (32-36) g/dL RDW Std Deviation 40.2 (36.4-46.3) fL RDW Coeff of Natali 13.4 (11.5-14.5) % Plt Count 185 (130-400) K/uL MPV 11.2 H (7.4-10.4) fL Immature Gran % (Auto) 0.2 % Neut % (Auto) 74.3 % Lymph % (Auto) 17.8 % [place] % (Auto) 6.7 % Eos % (Auto) 0.8 % Baso % (Auto) 0.2 % Neut # (Auto) 6.17 (1.4-6.5) K/uL Lymph # (Auto) 1.48 (1.2-3.4) K/uL [place] # (Auto) 0.56 (0.11-0.59) K/uL Eos # (Auto) 0.07 (0-0.5) K/uL Baso # (Auto) 0.02 (0-0.2) K/uL Immature Gran # (Auto) 0.02 (0.00-0.02) K/uL Sodium 139 (136-145) mmol/L Potassium 3.4 L (3.5-5.1) mmol/L Chloride 109 H (98-107) mmol/L Carbon Dioxide 24 (21-32) mmol/L Anion Gap 7.0 (3-11) BUN 13 (7-18) mg/dl Creatinine 0.95 (0.6-1.2) mg/dl Est Cr Clr Drug Dosing 65.3 ml/min Est GFR ( Amer) 76.0 Est GFR (Non-Af Amer) 65.6 BUN/Creatinine Ratio 13.9 (10-20) Glucose 132 H (70-99) mg/dl Calcium 9.4 (8.5-10.1) mg/dl Total Bilirubin 0.4 (0.2-1) mg/dl AST 8 L (15-37) U/L ALT 28 (12-78) U/L Alkaline Phosphatase 101 (45-117) U/L Total Protein 7.6 (6.4-8.2) gm/dl Albumin 4.4 (3.4-5.0) gm/dl Globulin 3.2 (2.5-4.0) gm/dl Albumin/Globulin Ratio 1.4 (0.9-2) Lipase 1498 H (73-393) U/L Urine Color Yellow Urine Appearance Clear (Clear) Urine pH 5.5 (4.5-7.5) Ur Specific [place] 1.023 (1.000-1.030) Urine Protein Negative (Negative) Urine Glucose (UA) Negative (Negative) Urine Ketones 1+ H (Negative) Urine Blood Negative (Negative) Urine Nitrite Negative (Negative) Urine Bilirubin Negative (Negative) Urine Urobilinogen Negative (Negative) Ur Leukocyte Esterase 1+ H (Negative) Urine WBC (Auto) 10-30 H (0-5) /hpf Urine RBC (Auto) 0-4 (0-4) /hpf U Hyaline Cast (Auto) 5-10 H (0-5) /lpf U Epithel Cells (Auto) >30 H (0-5) /lpf Urine Bacteria (Auto) Negative (Negative) Administered Medications Hydromorphone HCl (Hydromorphone Inj 0.5 Mg/0.5 Ml Syr) 0.5 mg IV Q15M PRN PRN Reason: Pain Stop: 06/26/20 21:44 Last Admin: 06/13/20 00:23 Dose: 0.5 mg Documented by: [id number] Admin: 06/12/20 22:30 Dose: 0.5 mg Documented by: [id number] Admin: 06/12/20 21:50 Dose: 0.5 mg Documented by: [id number] Lactated Ringer's (Lr) 1,000 mls @ 250 mls/hr IV .Q4H STA Stop: 06/13/20 04:40 Last Admin: 06/13/20 01:54 Dose: 250 mls/hr Documented by: [id number] Discontinued Medications Ondansetron HCl (Ondansetron Inj 2 Mg/Ml 2 Ml Vial) 4 mg IV NOW STA Stop: 06/12/20 21:46 Last Admin: 06/12/20 21:50 Dose: 4 mg Documented by: [id number] Ondansetron HCl (Ondansetron Inj 2 Mg/Ml 2 Ml Vial) 4 mg IV NOW STA Stop: 06/13/20 01:48 Last Admin: 06/13/20 01:53 Dose: 4 mg Documented by: [id number] Discharge Plan Visit Data Chief Complaint: Abdominal Pain Stated Complaint: ABDOMINAL PAIN AFTER PROCEDURE ED Provider: Doroteo Vincent Discharge Problem: Acute pancreatitis Forms Stand Alone Forms: My [facility] Prescriptions Prescriptions: No Action enoxaparin 150 mg/mL syringe See Rx Instructions subcut Q24H Qty: 10 RF: 0 atorvastatin 40 mg tablet 40 mg PO DAILY Qty: 30 RF: 5 losartan 25 mg tablet 25 mg PO DAILY Qty: 30 RF: 5 sumatriptan succinate 6 mg/0.5 mL pen injector 6 mg subcut .COMPLEX PRN (Reason: Migraine Headache) Qty: 1 RF: 0 tizanidine 4 mg tablet 4 mg PO QID PRN (Reason: muscle spasticity) Qty: 90 RF: 5 ferrous sulfate 325 mg (65 mg iron) tablet,delayed release (DR/EC) 325 mg PO BID Qty: 60 RF: 5 metformin 500 mg tablet extended release 24 hr 1,000 mg PO DAILY Qty: 180 RF: 2 oxybutynin chloride 10 mg tablet extended release 24hr 10 mg PO DAILY Qty: 30 RF: 5 ergocalciferol (vitamin D2) [Vitamin D2] 1,250 mcg (50,000 unit) capsule 50,000 unit PO WK Qty: 12 RF: 1 warfarin 5 mg tablet See Rx Instructions PO UD Qty: 40 RF: 3 multivitamin [Daily Multi-Vitamin] tablet 1 tab PO DAILY RF: 0 promethazine 25 mg tablet 25 mg PO BID PRN (Reason: migraine, nausea) Qty: 60 RF: 1 gabapentin 800 mg tablet 800 mg PO TID Qty: 90 RF: 5 topiramate 100 mg capsule,sprinkle,ER 24hr 100 mg PO DAILY 90 Days Qty: 90 RF: 1 venlafaxine 150 mg capsule,extended release 24hr 150 mg PO QAM Qty: 30 RF: 0 Emgality Pen 120 mg/mL pen injector 120 mg SQ MONTHLY 30 Days Qty: 1 RF: 5 rizatriptan 10 mg tablet 10 mg PO .COMPLEX PRN (Reason: Migraine Headache) 90 Days Qty: 27 RF: 1 clonazepam 0.5 mg tablet 0.25 mg PO HS PRN (Reason: Unknown) RF: 0 venlafaxine 75 mg capsule,extended release 24hr 37.5 mg PO QAM RF: 0 docusate sodium 100 mg Capsule 100 mg PO BID Qty: 20 RF: 0 pantoprazole 40 mg Tablet,Delayed Release (Dr/Ec) 40 mg PO QAM 30 Days Qty: 30 RF: 3 acetaminophen [Tylenol Extra Strength] 500 mg Tablet 1,000 mg PO DIRECTED PRN (Reason: Pain) RF: 0 diphenhydramine HCl [Benadryl] 25 mg Capsule 25 mg PO Q6H PRN (Reason: Allergy Symptoms) RF: 0 buspirone 30 mg tablet 30 mg PO HS RF: 0 trazodone 50 mg tablet 50 mg PO HS RF: 0 chlorpromazine 10 mg tablet 10 mg PO HS RF: 0
[2020-06-13] MEDS: HYDROmorphone INJ 0.5 MG/0.5 ML SYR IV PRN ×9 (00:23→21:49)
[2020-06-13] MEDS ORDERED: LACTATED RINGER'S 1,000 ML IV STA (00:41)
[2020-06-13] MEDS ORDERED: ONDANSETRON INJ 2 MG/ML 2 ML VIAL IV STA (01:47)
[2020-06-13 01:54] LABS: Appearance Urine Clear (Clear); Bacteria Urine Automated Negative (Negative); Bilirubin Urine Negative (Negative); Blood Urine Negative (Negative); Color Urine Yellow; Epithelial Cell Urine Auto >30 /lpf (0-5); Glucose Urine UA Negative (Negative); Ketones Urine 1+ (Negative); Leukocyte Esterase Urine 1+ (Negative); Nitrite Urine Negative (Negative); Protein Urine Negative (Negative); RBC Urine Automated 0-4 /hpf (0-4); Specific Gravity Urine 1.023 (1.000-1.030); Urobilinogen Urine Negative (Negative); pH Urine 5.5 (4.5-7.5)
--- NOTE | 2020-06-13 02:48 | History & Physical Report ---
Date of Service June 13, 2020 Assessment & Plan Admission and Anticipated Discharge Date Admission Date: 60 yo F w/ pMHx. of HTN, HLD, DMII, COPD, headaches, SMV/A thrombosis, depression/anxiety, and multiple episodes of pancreatitis, currently here with abdominal pain likely due to post operative pancreatitis from recent ERCP w/ elevated lipase at [address] with inflammation of pancreatitis on stat rad read. - f/u final CT read - NPO, with goal of early enteral feeding - w/ LR @ 250ml/hr (2 bags), then consider continued fluid at a lower rate - ordered AM CBC to continue to monitor for infection / complications of pancreatitis - will consult [facility] GI - pain control with IV Tylenol and Morphine - IV Zofran for nausea - Protonix HTN - continue Losartan Diabetes, has not required insulin on prior admissions - continue to monitor blood sugar Concern given multiple serotonergic medications including Venlafaxine, Buspirone, Trazodone, Ondansetron and Rizatriptan. If the patient develops hyperthermia and clonus consider serotonin syndrome and D/C these medications - holding Trazodone Anxiety/Depression - continue Venlafaxine, Buspirone, Clonazepam, Thorazine UA w/ LCE, WBC 10-30 and epithelial cells, likely asymptomatic bacteruria - continue to monitor and f/u culture RLS - Gabapentin, Tizanidine Constipation - PRN miralax Code: full Diet: NPO DVT: lovenox bridge warfarin COVID: negative 06/13/20 History of Present Illness Chief Complaint: Abdominal pain Primary Care Provider: Brent Dye, III, COLD PATCHER Yaquelin Trinh is here for abdominal pain after ERCP with EUS through [facility] on 06/11. She has a past medical history of pancreatitis with prior admissions from March and April, superior mesenteric vein & artery thrombosis, chronic migraines, insomnia, depression with anxiety, COPD, DM II, HTN, HLD. She had her procedure done on Wednesday at [facility] and has since had uncontrolled mid abdomen pain that radiates to her back. She was given medication for the post operative pain but this wasn't able to appropriately address her pain. She called in and they had sent medication to the pharmacy but this would require a prior authorization that would take 24-48 hours complete. Patient was writhing in the bed, when asked about this she stated that it was due to restless leg syndrome. She had vomited once one day prior. [facility] outpatient ERCP by Jason Hill Impression: - pancreatic duct stricture found that could not be traversed - Biliary papillary stenosis, benign. Biliary sphincterotomy was preformed Plan: - case will be discussed with [place] [facility] Allergies Allergy/AdvReac Type Severity Reaction Status Date / Time latex Allergy Intermediate rash Verified 06/12/20 23:37 sulfamethoxazole Allergy Intermediate itching, Verified 06/12/20 23:37 chest tightness trimethoprim Allergy Intermediate itching, Verified 06/12/20 23:37 chest tightness adhesive Allergy Unknown ITCHY SKIN Verified 06/12/20 23:37 clindamycin AdvReac Severe Diarrhea Verified 06/12/20 23:37 doxycycline AdvReac Intermediate nausea and Verified 06/12/20 23:37 vomiting Home Medications Medication Instructions Recorded Confirmed Type multivitamin 1 tab PO DAILY 10/26/18 06/12/20 History venlafaxine 150 mg 150 mg PO QAM #30 cap 01/24/19 06/12/20 History capsule,extended release 24 hr atorvastatin 40 mg tablet 40 mg PO DAILY #30 tab 06/20/19 06/12/20 Rx losartan 25 mg tablet 25 mg PO DAILY #30 tab 10/13/19 06/12/20 Rx clonazepam 0.5 mg tablet 0.25 mg PO HS PRN tab 01/04/20 06/12/20 History galcanezumab-gnlm 120 mg/mL 120 mg SQ MONTHLY 30 Days #1 ml 01/04/20 06/12/20 Rx subcutaneous pen injector rizatriptan 10 mg tablet 10 mg PO .COMPLEX PRN 90 Days #27 01/04/20 06/12/20 Rx tab sumatriptan succinate 6 mg/0.5 mL 6 mg SUBCUT .COMPLEX PRN #1 ml 03/18/20 06/12/20 Rx subcutaneous pen injector gabapentin 800 mg tablet 800 mg PO TID #90 tab 04/10/20 06/12/20 Rx topiramate 100 mg capsule 100 mg PO DAILY 90 Days #90 ea 04/10/20 06/12/20 Rx sprinkle,extended release 24 hr buspirone 30 mg PO HS 04/16/20 06/12/20 History chlorpromazine 10 mg PO HS 04/16/20 06/12/20 History trazodone 50 mg PO HS 04/16/20 06/12/20 History promethazine 25 mg tablet 25 mg PO BID PRN #60 tab 04/25/20 06/12/20 Rx tizanidine 4 mg tablet 4 mg PO QID PRN #90 tab 05/01/20 06/12/20 Rx docusate sodium 100 mg PO BID #20 cap 05/15/20 06/12/20 Rx pantoprazole 40 mg PO QAM 30 Days #30 tab 05/15/20 06/12/20 Rx venlafaxine 75 mg capsule,extended 37.5 mg PO QAM cap 05/22/20 06/12/20 History release 24 hr ferrous sulfate 325 mg (65 mg 325 mg PO BID #60 tab 05/23/20 06/12/20 Rx iron) tablet,delayed release metformin 500 mg tablet,extended 1,000 mg PO DAILY #180 tab 05/23/20 06/12/20 Rx release 24 hr oxybutynin chloride 10 mg 10 mg PO DAILY #30 tab 05/24/20 06/12/20 Rx tablet,extended release 24 hr enoxaparin 150 mg/mL subcutaneous See Rx Instructions SUBCUT Q24H 05/29/20 06/12/20 Rx syringe #10 syr ergocalciferol (vitamin D2) 1,250 50,000 unit PO WK #12 cap 05/30/20 06/12/20 Rx mcg (50,000 unit) capsule warfarin 5 mg tablet See Rx Instructions PO UD #40 tab 06/07/20 06/12/20 Rx acetaminophen [Tylenol Extra 1,000 mg PO DIRECTED PRN 06/12/20 06/12/20 History Strength] diphenhydramine HCl [Benadryl] 25 mg PO Q6H PRN 06/12/20 06/12/20 History Past Med/Surg History Medical History Acute pancreatitis Depression (09/09/12) Diabetes Headache History of uterine fibroid Hyperlipidemia Hypertension Hypokalemia Migraine (09/09/12) Nausea & vomiting Pancreatic duct stricture Pancreatitis, acute Panic attack (09/09/12) PMB (postmenopausal bleeding) Surgical History History 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 History of laparoscopic cholecystectomy S/P surgical removal of pilonidal cyst Family History Sister Rheumatoid arthritis Steatorrhea Mother Hypertension Father Parkinson disease Denies family history of Ovarian cancer Prostate cancer Myocardial infarction Breast cancer Colorectal cancer Social History Smoking Status: Former smoker Tobacco Type: Cigarettes Age Started Using Tobacco: 21; Age Quit Using Tobacco: 58; packs per day: 1; Years Smoked: 37; Cigarettes Per Day: 2; Smoking End Date: 06/02/20; Number of Years Since Quit: 1; Second Hand Exposure: No; Do You Dip or Chew Tobacco: No; Hx Alcohol Use: No Hx Substance Use: No Preferred Language: Zimbabwean Communication Ability: Effective Visual Impairment: No Limitations Hearing Ability: Normal Stylist Assistant Required: No Beliefs That Will Affect Care: None marital status: Current Living Situation: Family Current Living Situation Comment: sister current occupational status: disabled Other Information That Helps Us Care for You: No Feels Safe at Home: Yes Safety Concerns: Feels Safe At This Time Childhood Exposure to Second-Hand Smoke: No Dental Care, Regularly: No Physical Activity Frequency: Does not Exercise Seatbelt Use: always Sunscreen Use: Yes Assistive Devices: Glasses Review of Systems Review of Systems: Constitutional: denies fevers admits chills, nausea 1 episode of vomiting one day prior, 30 lb. weight loss since March Head: denies trauma, lightheadedness, change in vision Neuro: denies syncope Cardiac: denies chest pain, palpitations Pulm: denies cough, shortness of breath GI: denies diarrhea, blood in stool, admit constipation Physical Exam Constitutional: + acute distress (writhing in pain) Eyes: PERRL, conjunctivae normal, anicteric sclerae ENMT: external ear and nose normal, oropharynx normal Neck: normal visual inspection Respiratory: normal respiratory effort, lungs clear to auscultation Cardiovascular: RRR, no murmur, no edema Gastrointestinal (Abdomen): - soft, bowel sounds present - no guarding - tender to palpation in the epigastric area Musculoskeletal: no cyanosis or clubbing, extremities motor strength 5/5 Skin: small linear scratches on the arm Neurologic: awake Speech / Cognition: normal speech Results & Data Results & Data ([facility]) Vital Signs (Past 12 Hours) Vital Signs Temp Pulse Pulse Resp BP BP Pulse Ox 06/13/20 01:55 89 16 180/99 H 94 06/13/20 00:35 85 16 160/86 H 98 06/12/20 23:37 89 16 150/92 H 96 06/12/20 22:31 88 25 H 93 06/12/20 22:30 88 28 H 160/92 H 92 06/12/20 22:20 89 23 06/12/20 22:10 94 H 06/12/20 22:00 92 H 29 H 93 06/12/20 21:56 93 H 27 H 93 06/12/20 21:39 85 23 161/93 H 95 06/12/20 21:37 96 06/12/20 21:36 94 H 27 H 161/93 H 91 06/12/20 19:55 36.8 C 108 H 18 164/100 H 98 Supervising Physician Co-Signing Physician Notes Patient seen and examined, chart reviewed, case discussed with Dr Herring and I agree with his assessment and plan as above. Briefly, patient is s 60yo female presenting with post-ERCP pancreatitis. Afebrile, hypertensive otherwise HD stable, NAD No jaundice MMM, neck supple, PERRL +S1/S2, regular, no m/r/g CTA +BS, soft tender in epigastrium, no rebound Labs and images reviewed Concern for post-ERCP pancreatitis -IVF, anti-emetics and pain control as needed -Remainder of plan as abovd
[2020-06-13] MEDS ORDERED: ACETAMINOPHEN 325 MG TAB PO PRN (03:58)
[2020-06-13] MEDS ORDERED: PROMETHAZINE HCL 25 MG TAB PO PRN (03:58)
[2020-06-13] MEDS ORDERED: POLYETHYLENE (MIRALAX) 17 GM PACK PO PRN (03:58)
[2020-06-13] MEDS ORDERED: RIZATRIPTAN BENZOATE 10 MG TAB PO PRN ×2 (03:58)
[2020-06-13] MEDS ORDERED: clonazePAM 0.25 MG TAB PO PRN (03:58)
[2020-06-13] MEDS ORDERED: tiZANidine HCL 4 MG TABLET PO PRN (03:58)
[2020-06-13] MEDS ORDERED: MoRPHine SULFATE 2 MG/ML CARP IV PRN (03:58)
[2020-06-13] MEDS ORDERED: ACETAMINOPHEN 1,000 MG/100 ML VIAL IV PRN (05:07)
[2020-06-13] MEDS: ONDANSETRON INJ 2 MG/ML 2 ML VIAL IV PRN ×2 (05:41→17:31)
--- NOTE | 2020-06-13 05:48 | Billing Data ---
Date of Service June 13, 2020 Coding Level of Care Code 21190 Initial Inpt Care Lvl 3
[2020-06-13] MEDS ORDERED: LACTATED RINGER'S 1,000 ML IV SCH (06:00)
[2020-06-13 06:26] LABS: Basophils # (auto) 0.01 K/uL (0-0.2); Basophils % (auto) 0.1 %; Eosinophils # (auto) 0.01 K/uL (0-0.5); Eosinophils % (auto) 0.1 %; Hematocrit (blood only) 36.3 % (37-47); Hemoglobin 12.2 g/dL (12.0-16.0); Immature Granulocytes # (auto) 0.01 K/uL (0.00-0.02); Immature Granulocytes % (auto) 0.1 %; Lymphocytes # (auto) 0.82 K/uL (1.2-3.4); Lymphocytes % (auto) 11.2 %; Mean Corpuscular Hemoglobin 28.2 pg (25-34); Mean Corpuscular Hgb Conc 33.6 g/dL (32-36); Mean Platelet Volume 11.2 fL (7.4-10.4); Monocytes # (auto) 0.27 K/uL (0.11-0.59); Monocytes % (auto) 3.7 %; Neutrophils # (auto) 6.19 K/uL (1.4-6.5); Neutrophils % (auto) 84.8 %; Platelet Count 159 K/uL (130-400); RDW Coefficient of Variation 13.3 % (11.5-14.5); RDW Standard Deviation 40.8 fL (36.4-46.3); Red Blood Count 4.32 M/uL (4.2-5.4); White Blood Count 7.31 K/uL (4.8-10.8)
[2020-06-13 06:57] LABS: BUN Creatinine Ratio 17.5 (10-20); Calcium 8.4 mg/dl (8.5-10.1); Creatinine Clr Calc Pharmacy 99.4 ml/min; Est GFR (African American) 112.1; Est GFR (Non-African American) 96.7; Potassium 3.3 mmol/L (3.5-5.1)
[2020-06-13] MEDS ORDERED: HYDROmorphone INJ 0.5 MG/0.5 ML SYR IV PRN (07:54)
--- NOTE | 2020-06-13 07:55 | CT Scan Report ---
CT SCAN OF THE ABDOMEN AND PELVIS WITHOUT CONTRAST CLINICAL HISTORY: Abdominal pain status post endoscopy. COMPARISON STUDY: 05/07/2020 TECHNIQUE: CT scan of the abdomen and pelvis was performed from the lung bases to the proximal femurs . Images are reviewed in the axial, sagittal, and coronal planes. IV contrast was not administered fo r this examination. A dose lowering technique was utilized adhering to the principles of ALARA. CT DOSE: 904.22 mGy.cm FINDINGS: Lower chest: There is elevation left hemidiaphragm. There is a small hiatal hernia. There is a stable 14 mm cyst like structure adjacent to the distal esophagus. Liver: There is a subtle 4 cm right lobe hepatic mass. This is better visualized on the preceding damaso dy. This is felt to represent a hemangioma Gallbladder: Surgically absent Spleen: There is a stable 32 mm anterior splenic hypodensity. Pancreas: There is infiltration of the peripancreatic fat consistent with acute pancreatitis. Adrenal glands: Unremarkable. Kidneys: There is left-sided nephrolithiasis. No ureteral or bladder calculi are visualized. Bowel: There are no transition zones indicate bowel obstruction. The appendix appears normal. There i s no acute diverticulitis Peritoneum: There is no intraperitoneal free air or abdominal ascites. Vasculature: The abdominal aorta is normal in course and caliber. Adenopathy: None. Pelvic viscera: The bladder, and pelvic viscera are unremarkable. Skeletal structures: No destructive osseous lesions are seen. IMPRESSION: 1. No evidence of bowel obstruction. No evidence of free air 2. Normal appendix. No evidence of acute diverticulitis 3. CT findings indicative of acute pancreatitis 4. Left-sided nephrolithiasis. No ureteral or bladder calculi identified 5. Stable hypodense hepatic and splenic lesions 6. Stable elevation left hemidiaphragm 7. Small hiatal hernia with a stable small fluid like structure adjacent to the distal esophagus ACT 112: Negative or not required by law. Electronically signed by: Miguel Angel James M.D. 06/13/2020 7:54 AM
[2020-06-13] MEDS: ENOXAPARIN 150 MG/ML SYR SQ SCH (07:56)
[2020-06-13] MEDS: PROMETHAZINE HCL 6.25 MG in SODIUM CHLORIDE 0.9% 50 ML IV PRN ×2 (09:26→20:00)
[2020-06-13] MEDS: POTASSIUM CHLORIDE / WTR 10 MEQ/100 ML PLCT IV SCH ×2 (10:23→11:56)
[2020-06-13] MEDS: DOCUSATE SODIUM 100 MG CAP PO SCH ×2 (10:27→20:45)
[2020-06-13] MEDS: VENLAFAXINE HCL XR 150 MG CAPXR PO SCH (10:28)
[2020-06-13] MEDS: PANTOprazole 40 MG TAB PO SCH (10:28)
[2020-06-13] MEDS: VENLAFAXINE HCL XR 37.5 MG CAPXR PO SCH (10:28)
[2020-06-13] MEDS: ATORVASTATIN 40 MG TAB PO SCH (10:29)
[2020-06-13] MEDS: GABAPENTIN 800 MG TAB PO SCH ×3 (10:29→20:45)
[2020-06-13] MEDS: LOSARTAN POTASSIUM 25 MG TAB PO SCH (10:29)
[2020-06-13] MEDS: OXYBUTYNIN CHLORIDE XL 5 MG TABCR PO SCH (10:29)
--- NOTE | 2020-06-13 10:50 | Gastrointestinal Consultation ---
Date of Consultation June 13, 2020 Assessment & Plan (1) Acute pancreatitis: Pt is a 60 y/o female w hx of s/p cholecystectomy, recurrent pancreatitis, pancreatic duct stricture and SMV thrombus currently admitted for post ERCP pancreatitis. ERCP w FNA of pancreas uncinate process done on 06/11, path unfortunately showed malignant adenocarcinoma. - IVF support w LR - CL diet today - Symptomatic management w antiemetics and analgesics prn - Pt made aware of ERCP path report. Eventual plan for outpt referral to [facility] which is already initiated by Dr. Hlil Supervising Physician Co-Signing Physician Notes I saw and evaluated the patient. She was admitted with abdominal pain thought to be related to post ERCP pancreatitis. She underwent ERCP with my partner Dr.Abdulsamad Cuadra days ago. This appears to be a somewhat complicated procedure as she underwent both endoscopic ultrasound with fine-needle aspiration in addition to ERCP with biliary cannulation and attempted pancreatic duct cannulation. Pathology reveals that she has an underlying pancreatic head adenocarcinoma. Physical examination No obvious distress, tremor noted of the lips and face Impression: Patient admitted with post ERCP pancreatitis, would continue with conservative management at the present time to include IV hydration. Once the patient pain has improved we can likely then slowly advance her diet as tolerated. For the present time I recommend LR at approximately 200 mL/h. Given the recent ERCP perhaps the patient would be best served with lactic antibiotics, would recommend ciprofloxacin twice daily for total of 7 days. Recommendations Continue with IV hydration Empiric Cipro for 7 days Once pain-free will advance to a clear liquid diet Patient will need outpatient referral to surgical oncology determine if a Whipple procedure is an option History of Present Illness Reason for Consultation: Post ERCP pancreatitis Requesting Physician: Dr. Teddy Domingo Attending Physician: Dr. Ruben Guan History of Present Illness Pt is a 60 y/o female w hx of s/p cholecystectomy, recurrent pancreatitis w pancreatic duct stricture and SMV thrombosis. She initially underwent EGD/EUS by Dr. Hill on 05/09/2020 - FNA of lala hepatic lymph node and pancreas uncinate process mass was benign. She underwent EUS/ERCP on 06/11/2020 - pancreatic sphincterotomy was performed, pancreatic duct stricture was found which could not be traversed. There is benign appearing biliary papillary stenosis. A biliary sphincterotomy was performed. Repeat FNA of pancreas uncinat e process showed adenocarcinoma this time. Since her EUS/ERCP on 06/11 pt had been c/o abd pain, n/v. She denies fever, chills, or changes in bowel habits. She presented to ED yesterday and found to h ave elevated Lipase and CT abd/pelvis w/o contrast evidence of acute pancreatitis. No signs of bowel obstruction or free air on CT. LFTs are normal. Allergies Allergy/AdvReac Type Severity Reaction Status Date / Time latex Allergy Intermediate rash Verified 06/12/20 23:37 sulfamethoxazole Allergy Intermediate itching, Verified 06/12/20 23:37 chest tightness trimethoprim Allergy Intermediate itching, Verified 06/12/20 23:37 chest tightness adhesive Allergy Unknown ITCHY SKIN Verified 06/12/20 23:37 clindamycin AdvReac Severe Diarrhea Verified 06/12/20 23:37 doxycycline AdvReac Intermediate nausea and Verified 06/12/20 23:37 vomiting Home Medications Medication Instructions Recorded Confirmed Type multivitamin 1 tab PO DAILY 10/26/18 06/12/20 History venlafaxine 150 mg 150 mg PO QAM #30 cap 01/24/19 06/12/20 History capsule,extended release 24 hr atorvastatin 40 mg tablet 40 mg PO DAILY #30 tab 06/20/19 06/12/20 Rx losartan 25 mg tablet 25 mg PO DAILY #30 tab 10/13/19 06/12/20 Rx clonazepam 0.5 mg tablet 0.25 mg PO HS PRN tab 01/04/20 06/12/20 History galcanezumab-gnlm 120 mg/mL 120 mg SQ MONTHLY 30 Days #1 ml 01/04/20 06/12/20 Rx subcutaneous pen injector rizatriptan 10 mg tablet 10 mg PO .COMPLEX PRN 90 Days #27 01/04/20 06/12/20 Rx tab sumatriptan succinate 6 mg/0.5 mL 6 mg SUBCUT .COMPLEX PRN #1 ml 03/18/20 06/12/20 Rx subcutaneous pen injector gabapentin 800 mg tablet 800 mg PO TID #90 tab 04/10/20 06/12/20 Rx topiramate 100 mg capsule 100 mg PO DAILY 90 Days #90 ea 04/10/20 06/12/20 Rx sprinkle,extended release 24 hr buspirone 30 mg PO HS 04/16/20 06/12/20 History chlorpromazine 10 mg PO HS 04/16/20 06/12/20 History trazodone 50 mg PO HS 04/16/20 06/12/20 History promethazine 25 mg tablet 25 mg PO BID PRN #60 tab 04/25/20 06/12/20 Rx tizanidine 4 mg tablet 4 mg PO QID PRN #90 tab 05/01/20 06/12/20 Rx docusate sodium 100 mg PO BID #20 cap 05/15/20 06/12/20 Rx pantoprazole 40 mg PO QAM 30 Days #30 tab 05/15/20 06/12/20 Rx venlafaxine 75 mg capsule,extended 37.5 mg PO QAM cap 05/22/20 06/12/20 History release 24 hr ferrous sulfate 325 mg (65 mg 325 mg PO BID #60 tab 05/23/20 06/12/20 Rx iron) tablet,delayed release metformin 500 mg tablet,extended 1,000 mg PO DAILY #180 tab 05/23/20 06/12/20 Rx release 24 hr oxybutynin chloride 10 mg 10 mg PO DAILY #30 tab 05/24/20 06/12/20 Rx tablet,extended release 24 hr enoxaparin 150 mg/mL subcutaneous See Rx Instructions SUBCUT Q24H 05/29/20 06/12/20 Rx syringe #10 syr ergocalciferol (vitamin D2) 1,250 50,000 unit PO WK #12 cap 05/30/20 06/12/20 Rx mcg (50,000 unit) capsule warfarin 5 mg tablet See Rx Instructions PO UD #40 tab 06/07/20 06/12/20 Rx acetaminophen [Tylenol Extra 1,000 mg PO DIRECTED PRN 06/12/20 06/12/20 History Strength] diphenhydramine HCl [Benadryl] 25 mg PO Q6H PRN 06/12/20 06/12/20 History Patient History Medical History Acute pancreatitis Depression (09/09/12) Diabetes Headache History of uterine fibroid Hyperlipidemia Hypertension Hypokalemia Migraine (09/09/12) Nausea & vomiting Pancreatic duct stricture Pancreatitis, acute Panic attack (09/09/12) PMB (postmenopausal bleeding) Surgical History History 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 History of laparoscopic cholecystectomy S/P surgical removal of pilonidal cyst Family History Sister Rheumatoid arthritis Steatorrhea Mother Hypertension Father Parkinson disease Denies family history of Ovarian cancer Prostate cancer Myocardial infarction Breast cancer Colorectal cancer Social History Smoking Status: Former smoker Tobacco Type: Cigarettes Age Started Using Tobacco: 21; Age Quit Using Tobacco: 58; packs per day: 1; Years Smoked: 37; Cigarettes Per Day: 2; Smoking End Date: 06/02/20; Number of Years Since Quit: 1; Second Hand Exposure: No; Do You Dip or Chew Tobacco: No; Hx Alcohol Use: No Hx Substance Use: No Preferred Language: Libyan Communication Ability: Effective Visual Impairment: No Limitations Hearing Ability: Normal Rotary Adjuster Required: No Beliefs That Will Affect Care: None marital status: Current Living Situation: Family Current Living Situation Comment: sister current occupational status: disabled Other Information That Helps Us Care for You: No Feels Safe at Home: Yes Safety Concerns: Feels Safe At This Time Childhood Exposure to Second-Hand Smoke: No Dental Care, Regularly: No Physical Activity Frequency: Does not Exercise Seatbelt Use: always Sunscreen Use: Yes Assistive Devices: Glasses Review of Systems Review of Systems: All systems reviewed & are unremarkable except as noted in HPI & below Physical Exam Constitutional: + ill appearing, well groomed and cooperative Eyes: PERRL, conjunctivae normal, anicteric sclerae ENMT: external ear and nose normal, oropharynx normal Respiratory: normal respiratory effort, lungs clear to auscultation Cardiovascular: RRR, no murmur, no edema Gastrointestinal (Abdomen): Inspection/Auscultation: + hypoactive bowel sounds Percussion/Palpation: + abdomen tender (diffuse) and abdomen soft Skin: no rashes, warm and dry no jaundice Psychiatric: A+Ox3, euthymic affect Lymphatic: no lymphedema Results & Data ([facility]) Vital Signs (Past 12 Hours) Vital Signs Temp Pulse Pulse Resp BP BP Pulse Ox 06/13/20 07:27 36.7 C 87 20 168/100 H 95 06/13/20 03:40 36.7 C 98 H 18 161/102 H 91 06/13/20 03:34 89 18 176/99 H 96 06/13/20 02:42 90 16 168/99 H 95 06/13/20 01:55 89 16 180/99 H 94 06/13/20 00:35 85 16 160/86 H 98 06/12/20 23:37 89 16 150/92 H 96
[2020-06-13] MEDS: LACTATED RINGER'S 1,000 ML IV SCH ×2 (11:08→18:25)
[2020-06-13] MEDS: CIPROFLOXACIN / D5W 400 MG/200 ML BAG IV SCH (15:02)
[2020-06-13] MEDS ORDERED: WARFARIN SOD 5 MG TAB PO SCH (16:00)
[2020-06-13 16:37] LABS: INR 1.2 (0.9-1.1); Prothrombin Time 11.9 Seconds (9.0-12.0)
--- NOTE | 2020-06-13 18:26 | Hospitalist Progress Note ---
Date of Service June 13, 2020 Assessment & Plan (1) Acute pancreatitis: 60 yo woman with a PMHX of several previous episodes of pancreatitis who presented with recurrent epigastric pain, consistent with acute pancreatitis. Of note, patient had an ERCP with [facility] on 06/11/20 - pathology from this procedure returned positive for pancreatic adenocarcinoma. Acute pancreatitis - lipase elevated to 1729 on admission, downtrended to 600 today - A/P CT showing evidence of pancreatic inflammation - patient is s/p cholecystectomy. Ca 9.4 on admission. TG 123 from 03/2020. ERCP from 06/11/20 showing pancreatic duct stricture that was unable to be traversed - likely cause of recurrent episodes of pancreatitis - 2L IVF given in ED; continue LR at 200mls/hr - pain control regimen ordered (Tylenol for mild pain, Dilaudid for severe pain) - zofran prn for nausea - initially NPO, advancing diet as tolerated - GI consulted, appreciate recs Pancreatic Adenocarcinoma - new diagnosis - ERCP 06/11/20 pathology returned today - positive for the above - CA 19-9 level ordered - [facility] recommending follow up with advanced GI in [place] - likely cause of pancreatic duct stricture Hypokalemia - level 3.3 on admission - replacement ordered - trend BMP HTN - continue Losartan Type 2 Diabetes - A1c from 03/2020 5.2. - hold home metformin while inpatient - has not required insulin on prior admissions - blood sugar control may worsen with new diagnosis of pancreatic cancer (destruction of islet cells) - continue to monitor blood sugar - continue Losartan - continue high-intensity statin Anxiety/Depression - continue Venlafaxine, Buspirone, Clonazepam, Thorazine - Concern given multiple serotonergic medications including Venlafaxine, Buspirone, Trazodone, Ondansetron and Rizatriptan. If the patient develops hyperthermia and clonus consider serotonin syndrome and D/C these medications - holding Trazodone RLS - Gabapentin, Tizanidine Constipation - PRN miralax Diet: liquid, advancing as tolerated DVT: lovenox bridge warfarin Dispo: Med/Surg Code: full Admission and Anticipated Discharge Date Admission Date: June 13, 2020 Supervising Physician Co-Signing Physician Notes Patient seen and examined with PGY-2 Dr. Morales. Agree with history, exam findings, assessment and plan of care as outlined. In brief, Ms. Trinh is a 60 year old female with history of HTN, DM, COPD, SMA and SMV thrombosis admitted with post-ERCP pancreatitis. Today, she continues to have abdominal pain and nausea. Prior to our team seeing her, she was told by GI that the pathology from the FNA from the ERCP did show malignant adenocarcinoma. VS and nursing notes reviewed. Tearful and shaky. Heart with regular rate and rhythm. Lungs clear to auscultation. Abdomen soft. Tender in the epigastric area. 1. post-ERCP pancreatitis. pain and nausea control. prophylactic cipro per GI. 2. malignant adenocarcinoma of the pancreas. New diagnosis. GI setting her up with specialist in [place]. 3. asymptomatic bacteruria. culture pending. No antibiotics at this time. 4. SMA and SMV thrombosis. Home coumadin. INR subtherapeutic on admission. 5. HTN. continue losartan. 6. DM. holding home metformin. Monitor sugars. Remainder of chronic issues stable. Dispo: pending clinical improvement. Subjective Informed this morning by Stormy MOSLEY that pathology from ERCP returned positive for pancreatic adenocarcinoma. Patient is upset at news of diagnosis - she asks me to call her sister for an update Review of Systems Gastrointestinal: + abdominal pain Physical Exam Constitutional: WD/WN, vitals as above + acute distress (secondary to pain ) and cooperative Eyes: + anicteric sclerae ENMT: external ear and nose normal, oropharynx normal Neck: normal visual inspection and trachea midline Respiratory: normal respiratory effort, lungs clear to auscultation Cardiovascular: RRR, no murmur, no edema Heart Sounds: normal S1 and normal S2 Gastrointestinal (Abdomen): Inspection/Auscultation: normal bowel sounds Percussion/Palpation: + abdomen tender (epigastrium ) and abdomen soft; no guarding Skin: no rashes, warm and dry Psychiatric: Affect: + tearful affect Results & Data Results & Data ([facility]) Vital Signs (Past 12 Hours) Vital Signs Temp Pulse Resp BP Pulse Ox 06/13/20 14:54 36.7 C 82 16 150/86 H 92 06/13/20 07:27 36.7 C 87 20 168/100 H 95 Resident Activity Tracking Resident Involvement: Resident Care Provided Care Provided: [facility] Medicine
[2020-06-13] MEDS: chlorproMAZINE HCL 10 MG TAB PO SCH (20:45)
[2020-06-13] MEDS: busPIRone 15 MG TAB PO SCH (20:45)
[2020-06-13] MEDS: traZODone HCL 50 MG TAB PO SCH (20:49)
[2020-06-13] MEDS ORDERED: traZODone HCL 50 MG TAB PO SCH (21:00)
[2020-06-14] MEDS ORDERED: MoRPHine SULFATE IR 15 MG TAB (IMMEDIATE RELEASE) PO ONE (01:21)
[2020-06-14] MEDS: CIPROFLOXACIN / D5W 400 MG/200 ML BAG IV SCH ×2 (01:52→14:01)
[2020-06-14] MEDS: LACTATED RINGER'S 1,000 ML IV SCH (02:55)
[2020-06-14] MEDS: HYDROmorphone INJ 0.5 MG/0.5 ML SYR IV PRN ×4 (04:21→08:41)
[2020-06-14 06:57] LABS: INR 1.9 (0.9-1.1); Prothrombin Time 17.9 Seconds (9.0-12.0)
[2020-06-14 07:31] LABS: BUN Creatinine Ratio 8.2 (10-20); Calcium 8.5 mg/dl (8.5-10.1); Creatinine Clr Calc Pharmacy 109.4 ml/min; Est GFR (African American) 115.6; Est GFR (Non-African American) 99.8; Potassium 3.3 mmol/L (3.5-5.1)
[2020-06-14] MEDS: OXYBUTYNIN CHLORIDE XL 5 MG TABCR PO SCH (08:34)
[2020-06-14] MEDS: VENLAFAXINE HCL XR 150 MG CAPXR PO SCH (08:34)
[2020-06-14] MEDS: PANTOprazole 40 MG TAB PO SCH (08:34)
[2020-06-14] MEDS: ATORVASTATIN 40 MG TAB PO SCH (08:34)
[2020-06-14] MEDS: GABAPENTIN 800 MG TAB PO SCH ×3 (08:35→20:07)
[2020-06-14] MEDS: VENLAFAXINE HCL XR 37.5 MG CAPXR PO SCH (08:35)
[2020-06-14] MEDS: DOCUSATE SODIUM 100 MG CAP PO SCH ×2 (08:35→20:07)
[2020-06-14] MEDS: LOSARTAN POTASSIUM 25 MG TAB PO SCH (08:35)
[2020-06-14] MEDS: ENOXAPARIN 150 MG/ML SYR SQ SCH (08:46)
[2020-06-14] MEDS: POTASSIUM CHLORIDE 20 MEQ/15 ML UDC PO ONE ×2 (08:59→09:06)
--- NOTE | 2020-06-14 09:24 | Gastroenterology Progress Note ---
Date of Service June 14, 2020 Assessment & Plan (1) Acute pancreatitis: Pt is a 60 y/o female w hx of s/p cholecystectomy, recurrent pancreatitis, pancreatic duct stricture and SMV thrombus currently admitted for post ERCP pancreatitis. ERCP w FNA of pancreas uncinate process done on 06/11, path unfortunately showed malignant adenocarcinoma. She is clinically improved, lipase has normalized. - DC IVF - Advanced to [place], low fat diet; advance as tolerated to low fat - No contraindication for DC home today vs tomorrow morning - Pt & family made aware of ERCP path report. Eventual plan for outpt referral to [facility] which is already initiated by Dr. Hill Admission and Anticipated Discharge Date Admission Date: June 13, 2020 Supervising Physician Co-Signing Physician Notes I saw and evaluated the patient. She notes that she did have some increased discomfort with a full liquid diet this morning. As result we would suggest a clear liquid diet for another day with continued IV hydration support. Recommendations Clear liquid diet today Continue with IV hydration If improved tomorrow may consider full liquid diet and then advancing to a low- fat diet Outpatient referral to surgical oncology has been made Subjective Pt denies any more n/v, and having less abd pain. Is passing flatus, no BMs yet Review of Systems Review of Systems: All systems reviewed & are unremarkable except as noted in HPI & below Physical Exam Constitutional: WD/WN, vitals as above Eyes: PERRL, conjunctivae normal, anicteric sclerae ENMT: external ear and nose normal, oropharynx normal Respiratory: normal respiratory effort, lungs clear to auscultation Cardiovascular: RRR, no murmur, no edema Gastrointestinal (Abdomen): normal bowel sounds, soft, nontender, no h epatosplenomegaly Skin: no rashes, warm and dry no jaundice Psychiatric: A+Ox3, euthymic affect Lymphatic: no lymphedema Results & Data ([facility]) Vital Signs (Past 12 Hours) Vital Signs Temp Pulse Resp BP Pulse Ox 06/13/20 23:25 98 06/13/20 23:14 37.3 C 94 H 16 139/80 84 L
[2020-06-14] MEDS: POTASSIUM CHLORIDE / WTR 10 MEQ/100 ML PLCT IV SCH ×2 (10:34→11:36)
[2020-06-14] MEDS: HYDROmorphone INJ 1 MG/ML SYRINGE IV PRN ×7 (10:34→23:47)
--- NOTE | 2020-06-14 10:45 | Hospitalist Progress Note ---
Date of Service June 14, 2020 Assessment & Plan (1) Acute pancreatitis: 60 yo woman with a PMHX of several previous episodes of pancreatitis who presented with recurrent epigastric pain, consistent with acute pancreatitis. Of note, patient had an ERCP with [facility] on 06/11/20 - pathology from this procedure returned positive for pancreatic adenocarcinoma. Acute pancreatitis - lipase elevated to 1729 on admission, downtrended to 600 06/13, today WNL 302 - A/P CT showing evidence of pancreatic inflammation - patient is s/p cholecystectomy. Ca 9.4 on admission. TG 123 from 03/2020. ERCP from 06/11/20 showing pancreatic duct stricture that was unable to be traversed - likely cause of recurrent episodes of pancreatitis - 2L IVF given in ED; along with adequate fluids while on floor at LR at 200mls/hr. IVF discontinued this AM. - pain control regimen ordered (Tylenol for mild pain, Dilaudid for severe pain). - zofran prn for nausea - Advancing diet as tolerated - GI consulted and agree with treatment plan - Dilaudid needed frequently, will increase dose and decrease frequency with Dilaudid 1mg q2h. - Continue with 7 day course of Cipro 400mg IV q12h, will continue with IV dosage until adequately tolerating PO intake. Pancreatic Adenocarcinoma - new diagnosis - ERCP 06/11/20 pathology returned 06/13 - positive for the above - CA 19-9 level ordered and elevated at 172. - [facility] recommending follow up with advanced GI in [place] - likely cause of pancreatic duct stricture, likely cause of prior thrombosis with need for anti-coagulation. Hypoxia - 84% recorded overnight corrected with 2L NC. Suspect either from respiratory depression from pain/sedating meds or from some pulmonary congestion from need for IVFs to treat pancreatitis. - Has no symptomatic complaints, will watch. Hypokalemia - level 3.3, repletion ordered, could not tolerate PO, ordered IV in place with KCl 20meq IV. - Suspect from poor oral intake of nutrition with GI illness. - trend BMP HTN - continue Losartan Type 2 Diabetes - A1c from 03/2020 5.2. - hold home metformin while inpatient - has not required insulin on prior admissions - blood sugar control may worsen with new diagnosis of pancreatic cancer (destruction of islet cells) - continue to monitor blood sugar - continue Losartan - continue high-intensity statin Anxiety/Depression - continue Venlafaxine, Buspirone, Clonazepam, Thorazine - Concern given multiple serotonergic medications including Venlafaxine, Buspirone, Trazodone, Ondansetron and Rizatriptan. If the patient develops hyperthermia and clonus consider serotonin syndrome and D/C these medications - holding Trazodone RLS - Gabapentin, Tizanidine Constipation - PRN miralax Diet: liquid, advancing as tolerated DVT: lovenox bridge completed, warfarin mildly subtherapeutic today 1.9, will continue with PO Warfarin. Dispo: Med/Surg Code: full Admission and Anticipated Discharge Date Admission Date: June 13, 2020 Supervising Physician Co-Signing Physician Notes Attending attestation Pt seen and examined in concert with Dr. Milan. In agreement with the docume nted findings as noted in the resident documentation with any exceptions or additions as noted here. Gradually improving epigastric pain and tolerance of diet. On examination, S1/S2 nl RRR no MCG. CTAB. Abd mild TTP though with considerable guarding, BS+ throughout. Acute pancreatitis w/ new dx of pancreatic adenocarcinoma - GI consultation - IV cipro day 05/26. taper IVF, encourage PO fluids, diet as tolerated. Pain control, ondansetron. f/u rec'd with outpatient pancreatic cancer specialist w/ [facility] Hypoxia - overnight, resolved Hypokalemia - replete Else see resident documentation as noted. Subjective Yaquelin had an abnormal SpO2 last night of 84% that was asymptomatic and she was placed on 2LNC by nursing staff. However, she has no respiratory complaints, no shortness of breath, no cough. She notes she is urinating frequently from IV fluids. She notes she was able to tolerate some of her liquid breakfast this morning. She notes she continues to have epigastric pain. No fevers, chills, chest pain. Physical Exam Constitutional: cooperative and comfortable Eyes: PERRL, conjunctivae normal, anicteric sclerae ENMT: external ear and nose normal, oropharynx normal Neck: normal visual inspection and trachea midline Respiratory: normal respiratory effort; no respiratory distress Auscultation: no wheezes Cardiovascular: Rate/Rhythm: regular rate and regular rhythm Gastrointestinal (Abdomen): Inspection/Auscultation: normal bowel sounds Percussion/Palpation: + abdomen tender (epigastric w/o rebound or guarding) and abdomen soft Musculoskeletal: Head/Neck/Chest: normocephalic and head atraumatic Skin: no rashes, warm and dry Neurologic: moves all extremities and awake Psychiatric: Orientation: alert and oriented x 3 Results & Data Results & Data ([facility]) Vital Signs (Past 12 Hours) Vital Signs Temp Pulse Resp BP Pulse Ox 06/13/20 23:25 98 06/13/20 23:14 37.3 C 94 H 16 139/80 84 L Resident Activity Tracking Resident Involvement: Resident Care Provided Care Provided: Adult Hospital Medicine
[2020-06-14] MEDS ORDERED: WARFARIN SOD 7.5 MG TAB PO SCH (16:00)
[2020-06-14] MEDS: busPIRone 15 MG TAB PO SCH (20:07)
[2020-06-14] MEDS: chlorproMAZINE HCL 10 MG TAB PO SCH (20:07)
[2020-06-14] MEDS: traZODone HCL 50 MG TAB PO SCH (20:07)
[2020-06-15] MEDS ORDERED: oxyCODONE IR HOME PACK PO SCH
[2020-06-15] MEDS: CIPROFLOXACIN / D5W 400 MG/200 ML BAG IV SCH (02:38)
[2020-06-15] MEDS: HYDROmorphone INJ 1 MG/ML SYRINGE IV PRN ×4 (02:40→08:56)
[2020-06-15 06:44] LABS: INR 3.1 (0.9-1.1); Prothrombin Time 28.6 Seconds (9.0-12.0)
[2020-06-15] MEDS: OXYBUTYNIN CHLORIDE XL 5 MG TABCR PO SCH (08:23)
[2020-06-15] MEDS: DOCUSATE SODIUM 100 MG CAP PO SCH (08:23)
[2020-06-15] MEDS: PANTOprazole 40 MG TAB PO SCH (08:23)
[2020-06-15] MEDS: VENLAFAXINE HCL XR 150 MG CAPXR PO SCH (08:23)
[2020-06-15] MEDS: LOSARTAN POTASSIUM 25 MG TAB PO SCH (08:23)
[2020-06-15] MEDS: GABAPENTIN 800 MG TAB PO SCH ×2 (08:23→13:06)
[2020-06-15] MEDS: ATORVASTATIN 40 MG TAB PO SCH (08:23)
[2020-06-15] MEDS: VENLAFAXINE HCL XR 37.5 MG CAPXR PO SCH (08:24)
[2020-06-15 08:55] LABS: BUN Creatinine Ratio 8.4 (10-20); Calcium 8.8 mg/dl (8.5-10.1); Creatinine Clr Calc Pharmacy 93.7 ml/min; Est GFR (African American) 109.9; Est GFR (Non-African American) 94.8; Potassium 3.2 mmol/L (3.5-5.1)
[2020-06-15] MEDS ORDERED: POTASSIUM CHLORIDE CRTAB 20 MEQ TABCR PO STA (10:26)
[2020-06-15] MEDS: oxyCODONE HCL IR 5 MG TAB (IMMEDIATE RELEASE) PO PRN ×2 (11:11→15:30)
--- NOTE | 2020-06-15 13:25 | Discharge Summary ---
Date of Service June 15, 2020 Admission HPI Per Admitting Provider Yaquelin Trinh is here for abdominal pain after ERCP with [facility] through [facility] on 06/11. She has a past medical history of pancreatitis with prior admissions from March and April, superior mesenteric vein & artery thrombosis, chronic migraines, insomnia, depression with anxiety, COPD, DM II, HTN, HLD. She had her procedure done on Wednesday at [facility] and has since had uncontrolled mid abdomen pain that radiates to her back. She was given medication for the post operative pain but this wasn't able to appropriately address her pain. She called in and they had sent medication to the pharmacy but this would require a prior authorization that would take 24-48 hours complete. Patient was writhing in the bed, when asked about this she stated that it was due to restless leg syndrome. She had vomited once one day prior. 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 Biliary sphincterotomy was preformed Plan: - case will be discussed with GI at [facility] to attempt again Admission Exam Per Admitting Provider Constitutional: + acute distress (writhing in pain) Eyes: PERRL, conjunctivae normal, anicteric sclerae ENMT: external ear and nose normal, oropharynx normal Neck: normal visual inspection Respiratory: normal respiratory effort, lungs clear to auscultation Cardiovascular: RRR, no murmur, no edema Gastrointestinal (Abdomen): - soft, bowel sounds present - no guarding - tender to palpation in the epigastric area Musculoskeletal: no cyanosis or clubbing, extremities motor strength 5/5 Skin: small linear scratches on the arm Neurologic: awake Speech / Cognition: normal speech Principal Diagnosis Recurrent Pancreatitis Pancreatic cancer Discharge Exam General: Alert, oriented. No acute distress Skin: No noted rashes or bruises Psych: Appropriate mood and affect, tearful at times Neuro: No gross deficits HEENT: NC/AT Chest: Nontender to palpation. CV: RRR, Normal s1, s2. No murmurs appreciated Resp: Breath sounds clear bilaterally, no increased effort of breathing. Abdomen: Soft, nontender, nondistended. No guarding. Extremities: No edema in lower extremities bilaterally. Discharge Data Allergies Allergy/AdvReac Type Severity Reaction Status Date / Time latex Allergy Intermediate rash Verified 06/12/20 23:37 sulfamethoxazole Allergy Intermediate itching, Verified 06/12/20 23:37 chest tightness trimethoprim Allergy Intermediate itching, Verified 06/12/20 23:37 chest tightness adhesive Allergy Unknown ITCHY SKIN Verified 06/12/20 23:37 clindamycin AdvReac Severe Diarrhea Verified 06/12/20 23:37 doxycycline AdvReac Intermediate nausea and Verified 06/12/20 23:37 vomiting Consultations 06/13/20 00:42 ED Decision to Admit Stat 06/13/20 06:41 Consult Gastroenterology Routine Ordered Studies 06/12/20 21:23 CT abd pelvis wo con Urgent Hospital Course (1) Acute pancreatitis: 60 yo woman with a PMHX of several previous episodes of pancreatitis who presented with recurrent epigastric pain, consistent with acute pancreatitis. Of note, patient had an ERCP with [facility] on 06/11/20 - pathology from this procedure returned positive for pancreatic adenocarcinoma. Acute pancreatitis - lipase elevated to 1729 on admission, downtrended to 600 06/13, WNL on discharge - A/P CT showing evidence of pancreatic inflammation - patient is s/p cholecystectomy. Ca 9.4 on admission. TG 123 from 03/2020. ERCP from 06/11/20 showing pancreatic duct stricture that was unable to be traversed - likely cause of recurrent episodes of pancreatitis - 2L IVF given in ED; along with adequate fluids while on floor at LR at 200mls/hr. - pain control regimen (Tylenol for mild pain, Dilaudid for severe pain). Discharged with oxycodone 10mg PRN. - zofran prn for nausea - Advancing diet as tolerated, was on full liquids at discharge. - GI consulted and agree with treatment plan - 7 day course of Cipro q12h, discharged with homepack and 4 more days. Pancreatic Adenocarcinoma - new diagnosis - ERCP 06/11/20 pathology returned 06/13 - positive for the above - CA 19-9 level ordered and elevated at 172. - [facility] recommending follow up with advanced GI in [place]. Followup has been initiated and will be scheduled by GI. - likely cause of pancreatic duct stricture, likely cause of prior thrombosis with need for anti-coagulation. Hypoxia - 84% recorded at one point, corrected with 2L NC. Suspect either from respiratory depression from pain/sedating meds or from some pulmonary congestion from need for IVFs to treat pancreatitis. Hypokalemia -replenished as needed. -continue to monitor after discharge. HTN - continue Losartan Type 2 Diabetes - A1c from 03/2020 5.2. - hold home metformin while inpatient - has not required insulin on prior admissions - blood sugar control may worsen with new diagnosis of pancreatic cancer (jodi truction of islet cells) - continue to monitor blood sugar - continue Losartan - continue high-intensity statin Anxiety/Depression - continue Venlafaxine, Buspirone, Clonazepam, Thorazine - Concern given multiple serotonergic medications including Venlafaxine, Buspirone, Trazodone, Ondansetron and Rizatriptan. If the patient develops hyperthermia and clonus consider serotonin syndrome and D/C these medications - holding Trazodone RLS - Gabapentin, Tizanidine Constipation - PRN miralax (2) Diabetes: (3) Hypertension: (4) Hyperlipidemia: (5) Pancreatic cancer: (6) Pancreatic duct stricture: (7) Depression with anxiety: Total Time Total Time Spent Total Time Spent (In Minutes): see attending attestation Discharge Plan Discharge Items Patient Disposition: Home - Self-Care Reason For Visit: POSTOPERATIVE PANCREATITIS Discharge Diagnosis: Recurrent pancreatitis, pancreatic cancer Activity: Per Instructions section Non-emergency contact: Primary Care Provider Call non-emergency contact if: your pain is worsening and you have a fever Follow-up/Referrals: Brent Dye III, CRNP [Primary Care Provider] - Diet: Full liquid Addtl Attending Provider Instructions: Ms. Gottlieb, we are discharging you home. We ask that you continue to advance your diet as tolerated. Continue with the full liquid diet tonight and try to slowly advance to solid foods as tolerated tomorrow. We are discharging you with 4 more days of the antibiotics, ciprofloxacin 500mg. Please take as directed, twice a day. We are also discharging you with the pain medication oxycodone 10mg q4h. Please take as directed. We ask that you follow up with your primary care provider Brent Dye in the next week for a hospital followup and for continued refills as needed. We also ask that you follow up with [facility] oncology as previously discussed for your pancreatic cancer. It was a pleasure taking care of you during your stay here! Pending Studies at Discharge: No Stand-Alone Forms: My [facility], Smoking Cessation Medications and DC Order Prescriptions: New ciprofloxacin HCl [Cipro] 500 mg tablet 500 mg PO BID Qty: 8 RF: 0 Continued enoxaparin 150 mg/mL syringe See Rx Instructions subcut Q24H Qty: 10 RF: 0 atorvastatin 40 mg tablet 40 mg PO DAILY Qty: 30 RF: 5 losartan 25 mg tablet 25 mg PO DAILY Qty: 30 RF: 5 sumatriptan succinate 6 mg/0.5 mL pen injector 6 mg subcut .COMPLEX PRN (Reason: Migraine Headache) Qty: 1 RF: 0 tizanidine 4 mg tablet 4 mg PO QID PRN (Reason: muscle spasticity) Qty: 90 RF: 5 ferrous sulfate 325 mg (65 mg iron) tablet,delayed release (DR/EC) 325 mg PO BID Qty: 60 RF: 5 metformin 500 mg tablet extended release 24 hr 1,000 mg PO DAILY Qty: 180 RF: 2 oxybutynin chloride 10 mg tablet extended release 24hr 10 mg PO DAILY Qty: 30 RF: 5 ergocalciferol (vitamin D2) [Vitamin D2] 1,250 mcg (50,000 unit) capsule 50,000 unit PO WK Qty: 12 RF: 1 warfarin 5 mg tablet See Rx Instructions PO UD Qty: 40 RF: 3 multivitamin [Daily Multi-Vitamin] tablet 1 tab PO DAILY RF: 0 promethazine 25 mg tablet 25 mg PO BID PRN (Reason: migraine, nausea) Qty: 60 RF: 1 gabapentin 800 mg tablet 800 mg PO TID Qty: 90 RF: 5 topiramate 100 mg capsule,sprinkle,ER 24hr 100 mg PO DAILY 90 Days Qty: 90 RF: 1 venlafaxine 150 mg capsule,extended release 24hr 150 mg PO QAM Qty: 30 RF: 0 Emgality Pen 120 mg/mL pen injector 120 mg SQ MONTHLY 30 Days Qty: 1 RF: 5 rizatriptan 10 mg tablet 10 mg PO .COMPLEX PRN (Reason: Migraine Headache) 90 Days Qty: 27 RF: 1 clonazepam 0.5 mg tablet 0.25 mg PO HS PRN (Reason: Unknown) RF: 0 venlafaxine 75 mg capsule,extended release 24hr 37.5 mg PO QAM RF: 0 docusate sodium 100 mg Capsule 100 mg PO BID Qty: 20 RF: 0 pantoprazole 40 mg Tablet,Delayed Release (Dr/Ec) 40 mg PO QAM 30 Days Qty: 30 RF: 3 acetaminophen [Tylenol Extra Strength] 500 mg Tablet 1,000 mg PO DIRECTED PRN (Reason: Pain) RF: 0 diphenhydramine HCl [Benadryl] 25 mg Capsule 25 mg PO Q6H PRN (Reason: Allergy Symptoms) RF: 0 buspirone 30 mg tablet 30 mg PO HS RF: 0 trazodone 50 mg tablet 50 mg PO HS RF: 0 chlorpromazine 10 mg tablet 10 mg PO HS RF: 0 Discharge Orders: Discharge Order (Routine); Ordered 06/15/20 Ordered By: Hazel Aguilar/Other Patient Handouts: Understanding Pancreatitis, Anatomy of the Digestive System, Discharge Instructions for Acute ... Admission Data Admit Date/Time: 06/13/20 02:47 Attending Provider: Blair Ca Admit Provider: Lacey Osorio Primary Care Provider: Brent Dye III Other Providers: Lacey Osorio ; Jason Hill Supervising Physician Co-Signing Physician Notes Attending attestation Pt seen and examined in concert with Dr. Stoddard. In agreement with the documented findings as noted in the resident documentation with any exceptions or additions as noted here. Patient complains of persistent epigastric pain overall improved and controlled with pain medication. Tearful when discussing the future but overall optimistic regarding her care team and outlook. On examination, S1/S2 nl RRR no MCG. CTAB. Abd minimal TTP though with much less guarding, BS+ throughout. Acute pancreatitis w/ new dx of pancreatic adenocarcinoma - GI consultation - IV cipro day 3, transition to PO to complete course. Counseled to maintain PO intake. Pain control discussed and encourage judicious use and activity as tolerated. f/u rec'd with outpatient pancreatic cancer specialist w/ [facility] Hypokalemia - repleted on AM of discharge, would recheck on outpatient follow up. Else see resident documentation as noted. Total attending time spent with this patients case on day of discharge including counseling and coordination of care elements: 45 minutes. Resident Activity Tracking Resident Involvement: Resident Care Provided Care Provided: Adult [facility] Medicine
[2020-06-15] MEDS ORDERED: ACETAMINOPHEN 500 MG TAB PO PRN (14:13)
[2020-06-15] MEDS ORDERED: WARFARIN SOD 5 MG TAB PO SCH (16:00)
[2020-06-15] MEDS ORDERED: oxyCODONE IR HOME PACK PO ONE (17:16)
[2020-06-15] MEDS ORDERED: CIPROFLOXACIN 500MG HOME PACK PO ONE (17:19)
[2020-06-15] MEDS ORDERED: CIPROFLOXACIN 500 MG TAB PO SCH ×2 (17:45→21:00)
== END 2020-06-15 18:31 | disposition home or self-care (01) ==
LOC: ED 19:49 → SUATTDRO 06-13 02:47 → 3W 06-13 02:47 → INTOOBSV 06-13 02:47 → 3W 06-13 03:34

== ENCOUNTER 2020-07-08 08:58 | Inpatient (IN) ==
[2020-07-08] MEDS ORDERED: MoRPHine SULFATE 4 MG/ML 1 ML CARP\\VIAL IV STA ×2 (09:22→11:18)
[2020-07-08] MEDS ORDERED: ONDANSETRON INJ 2 MG/ML 2 ML VIAL IV STA (09:22)
[2020-07-08] MEDS ORDERED: SODIUM CHLORIDE 0.9% 1000ML 1,000 ML IV STA (09:22)
--- NOTE | 2020-07-08 09:40 | Emergency Department Note ---
Impression & Plan Pancreatic cancer, Supratherapeutic INR, Upper GI bleed, Mass of pancreas ED Provider Note CHIEF COMPLAINT: Abdominal pain, vomiting HISTORY OF PRESENTING ILLNESS: This is a 60-year-old female who presents to the emergency department by private vehicle with complaint of severe abdominal pain and nausea/vomiting, unable to keep anything down. The patient was recently admitted to the hospital about 1 month ago and during that admission she was diagnosed with pancreatic cancer (adenocarcinoma). The patient states that she is scheduled to start chemotherapy at the beginning of next month and is also supposed to get placement of a port. She states that she was initially being treated for her pain with oxycodone, but her doctor felt that she was taking too much of this so they switched her to a fentanyl patch 3 days ago. She is currently on 25 mcg every 72 hours. She states she does not have any oxycodone or other prescribed medications for breakthrough pain and her pain has been poorly controlled for the past few days because of this. She has tried Tylenol which has not really helped, she notes that she is supposed to avoid NSAIDs. The patient notes that she also has been having worsening nausea and vomiting, states that the vomiting started last night and she has not been able to keep anything down since then. She denies any bloody, coffee-ground, or bilious emesis. She does have a prescription antinausea medicine, but she states this has not been helping. She notes that her pain has been 10/10 today. She denies any chest pain, chest tightness, shortness of breath, palpitations, dizziness or syncope, back pain, diarrhea or constipation, or urinary complaints. REVIEW OF SYSTEMS: A complete 10 point review of systems was reviewed with the patient with pertinent positives and negatives as per history of present illness. All else were negative. PAST MEDICAL HISTORY: Hypertension, hyperlipidemia, prediabetes, COPD, migraines, depression, anxiety, pancreatic adenocarcinoma, history of pancreatitis, history of cholecystectomy SOCIAL HISTORY: Lives at home, she is a former smoker noting that she quit about a month ago, she denies alcohol use ALLERGIES: Reviewed in chart and with the patient PHYSICAL EXAM: CONSTITUTIONAL: Pleasant and cooperative. Nontoxic-appearing and in no acute distress, but appears uncomfortable from the pain. Tearful on exam. Mildly dehydrated. HEENT: Normocephalic, atraumatic. Pharynx normal. Tacky mucous membranes. NECK: Supple, full active range of motion without discomfort. RESPIRATORY: Clear to auscultation bilaterally with no wheezing, crackles, rhonchi or stridor. Equal expansion bilaterally. CARDIOVASCULAR: Regular rate and rhythm with no murmurs, rubs or gallops. Normal peripheral perfusion. No edema. GASTROINTESTINAL: Tender to palpation in the epigastric region, no rebound tenderness or guarding. The remainder of the abdomen is nontender, soft and nondistended. No palpable masses or HSM. Bowel sounds present in all quadrants. No CVA tenderness bilaterally. MUSCULOSKELETAL: Full range of motion of all joints without discomfort. INTEGUMENTARY: No rash or other significant dermatologic conditions noted. NEUROLOGIC: Alert and oriented X 4 with normal affect. Normal strength and sensation in all 4 extremities. Normal speech. Normal gait observed. ED COURSE AND MEDICAL DECISION MAKING: CC: Patient presenting with complaint of abdominal pain, vomiting DIFFERENTIAL DIAGNOSIS: Includes, but not limited to acute pancreatitis, complications of pancreatic cancer, GI bleed, electrolyte abnormality, dehydration, inadequate pain management, among others. INTERPRETATION OF LABS: No leukocytosis, no anemia, normal platelets, no significant electrolyte abnormalities, normal renal function, normal liver enzymes and lipase. Troponin undetectable. PT/INR are significantly supratherapeutic. UA shows some blood and epithelial cells and otherwise negative, no evidence of infection. IMAGING: CT abd pelvis IV con only CLINICAL HISTORY: upper abd pain, vomiting, elevated INR PANCREATIC CARCINOMA. COMPARISON STUDY: June 12, 2020 TECHNIQUE: The patient was scanned in a dynamic helical fashion during intravenous administration of 93 cc of Optiray 320. A dose lowering technique was utilized adhering to the principles of ALARA. CT DOSE: 1024.48 mGycm FINDINGS: Lower chest: There is elevation left hemidiaphragm. There are left lower lobe and lingular atelectatic changes. There is a 4 mm right lower lobe pulmonary nodule abutting the diaphragmatic surface. Liver: There is 37 mm hypervascular mass within the right lobe the liver, likely representing a hemangioma. There is a stable indeterminate 11 mm hypodense lesion within the left hepatic lobe medially. There is an [id number] mm hypodense nodule within the inferior aspect of the right hepatic lobe. There is an indeterminate 13 mm hypodense lesion within the right hepatic lobe medially. Gallbladder: Not visualized presumed surgically absent Spleen: There is stable 33 mm hypodense splenic lesion. Pancreas: There is pancreatic ductal dilatation. There is a heterogeneous 4 cm pancreatic head mass. There is a loss of the normal fat plane between the pancreas and duodenum. Adrenal glands: Unremarkable. Kidneys: There is symmetric renal cortical enhancement. The kidneys are normal in size without hydronephrosis. Bowel: There are no transition zones indicate bowel obstruction. There is no evidence of acute diverticulitis. There is no evidence of acute appendicitis. Peritoneum: There is no intraperitoneal free air or abdominal ascites. Vasculature: The abdominal aorta is normal in course and caliber. There is hazy infiltration surrounding the superior mesenteric artery. Adenopathy: There are borderline enlarged peripancreatic lymph nodes Pelvic viscera: The bladder, and pelvic viscera are unremarkable. Skeletal structures: No destructive osseous lesions are seen. IMPRESSION: 1. 4 cm pancreatic head mass 2. 37 mm hypervascular mass in the right lobe of the liver consistent with a hemangioma 3. There are for additional hypodense indeterminate hepatic lesions. 4. No evidence of bowel obstruction. No evidence of free air 5. No evidence of acute appendicitis. No evidence of acute diverticulitis. EKG: Shows normal sinus rhythm with a rate of 92 bpm, normal intervals, no ST e levation or depression, no ectopy, no significant changes when compared to previous EKG from 04/20/2020 by my interpretation. MEDICATION RECONCILIATION: I attest that I have personally reviewed the ursula ricci's current medication list. INITIAL VITAL SIGNS REVIEW: I reviewed the patient's initial vital signs and interpret them as follows: T: Afebrile; BP: Hypertensive; HR: Mildly tachycardic; RR: Within normal limits; Pulse Ox: Within normal limits on room air. MDM SUMMARY: Patient was evaluated at bedside, history and physical exam performed. Patient is alert and oriented, in no acute distress, but appears uncomfortable from pain, resting in the stretcher. She is afebrile and nontoxic-appearing, but is noted to be tachycardic and mildly dehydrated clinically. She complains of some nausea, but is not actively vomiting. She has not really noticed the color of the vomit. Cardiac monitoring: An order was placed for continuous cardiac monitoring. The monitor shows a rate of 112 bpm with sinus tachycardia rhythm. Orders were placed for labs, UA, EKG and troponin to evaluate for ACS, IV fluid bolus for hydration, IV morphine for pain, IV Zofran for nausea. Patient discussed with Dr. Vincent, who agrees with my assessment, plan, and disposition. Patient did have one episode of vomiting in the room, emesis does appear a reddish-brown color concerning for GI bleed. The patient notes that she did drink some grape juice early this morning. Emesis sample was sent for gastric occult evaluation. The patient reports persistent nausea and pain, she was given a second dose of IV morphine as well as a dose of IV Phenergan. Labs and imaging reviewed as above, most notable for supratherapeutic INR, this was reversed with IV vitamin K 10 mg. Labs are otherwise fairly unremarkable. She is not anemic. Gastric occult was POSITIVE. CT imaging was reviewed as above, notable for interval development of a 4 cm pancreatic head mass that was not seen on previous imaging a month ago, but no other significant abnormalities, specifically no bowel obstruction or evidence of free air. Patient has been reassessed multiple times throughout her ED stay, she continues to complain of severe pain that has only been minimally relieved with the morphine. 0.5 mg IV Dilaudid was ordered for additional pain management. Her nausea is improved after the Zofran and Phenergan, and she has not had any further episodes of vomiting. I spoke on the phone with Dr. Saavedra, [facility] Hospitalist, who agrees to evaluate the patient for admission. He was made aware of the patient's po sitive gastric occult test and will place patient on Protonix. The patient was updated on all results and plan for admission, she was agreeable to this plan. The patient was stable at time of admission. The chart was completed utilizing [employer] Speech voice recognition software. Grammatical errors, random word insertions, pronoun errors, and incomplete sentences are an occasional consequence of this system due to software limitations, ambient noise, and hardware issues. Any formal questions or concerns about the content, text, or information contained within the body of this dictation should be directly addressed to the nurse practitioner for clarification. Past Med/Surg History Medical History Acute pancreatitis Depression (09/09/12) Diabetes Headache History of uterine fibroid Hyperlipidemia Hypertension Hypokalemia Migraine (09/09/12) Nausea & vomiting Pancreatic duct stricture Pancreatitis, acute Panic attack (09/09/12) PMB (postmenopausal bleeding) Surgical History History of excision of lesion History of laparoscopic cholecystectomy S/P surgical removal of pilonidal cyst Family History Sister Endometrial cancer Arthritis Celiac disease Hypertension Diabetes Mother Hypertension Congestive heart failure (CHF) Kidney failure Heart disease Father Parkinson disease Myocardial infarction Graves disease Skin cancer Denies family history of Ovarian cancer Prostate cancer Breast cancer Colorectal cancer Social History (Updated 06/24/20 @ 10:17 by MITZY Fine) Smoking Status: Former smoker Tobacco Type: Cigarettes Age Started Using Tobacco: 21; Age Quit Using Tobacco: 58; packs per day: 1; Years Smoked: 37; Cigarettes Per Day: 2; Number of Years Since Quit: 1; Second Hand Exposure: No; Hx Alcohol Use: No Hx Substance Use: No Preferred Language: Eritrean Communication Ability: Effective Visual Impairment: No Limitations Hearing Ability: Normal Senior Instructor Required: No Beliefs That Will Affect Care: None marital status: Current Living Situation: Family Current Living Situation Comment: sister current occupational status: disabled Feels Safe at Home: Yes Childhood Exposure to Second-Hand Smoke: No Dental Care, Regularly: No Physical Activity Frequency: Does not Exercise Seatbelt Use: always Sunscreen Use: Yes Assistive Devices: None Allergies Allergies Allergy/AdvReac Type Severity Reaction Status Date / Time latex Allergy Intermediate rash Verified 07/08/20 10:03 sulfamethoxazole Allergy Intermediate itching, Verified 07/08/20 10:03 chest tightness trimethoprim Allergy Intermediate itching, Verified 07/08/20 10:03 chest tightness adhesive Allergy Unknown ITCHY SKIN Verified 07/08/20 10:03 clindamycin AdvReac Severe Diarrhea Verified 07/08/20 10:03 doxycycline AdvReac Intermediate nausea and Verified 07/08/20 10:03 vomiting Home Meds Home Medications Medication Instructions Recorded Confirmed multivitamin 1 tab PO QDD 10/26/18 07/08/20 clonazepam 0.5 mg tablet 0.25 mg PO HS PRN tab 01/04/20 07/08/20 buspirone 30 mg PO HS 04/16/20 07/08/20 chlorpromazine 10 mg PO HS 04/16/20 07/08/20 venlafaxine 75 mg capsule,extended 37.5 mg PO QAM cap 05/22/20 07/08/20 release 24 hr acetaminophen [Tylenol Extra 1,000 mg PO DIRECTED PRN 06/12/20 07/08/20 Strength] diphenhydramine HCl [Benadryl] 25 mg PO Q6H PRN 06/12/20 07/08/20 warfarin 5 mg tablet See Rx Instructions PO UD tab 06/21/20 07/08/20 ergocalciferol (vitamin D2) 50,000 unit PO FR 07/08/20 07/08/20 [Vitamin D2] losartan 25 mg PO HS 07/08/20 07/08/20 metformin 1,000 mg PO HS 07/08/20 07/08/20 oxybutynin chloride 10 mg PO HS 07/08/20 07/08/20 venlafaxine 75 mg PO QAM 07/08/20 07/08/20 Previous Rx's Medication Instructions Recorded atorvastatin 40 mg tablet 40 mg PO DAILY #30 tab 06/20/19 galcanezumab-gnlm 120 mg/mL 120 mg SQ MONTHLY 30 Days #1 ml 01/04/20 subcutaneous pen injector sumatriptan succinate 6 mg/0.5 mL 6 mg SUBCUT .COMPLEX PRN #1 ml 03/18/20 subcutaneous pen injector gabapentin 800 mg tablet 800 mg PO TID #90 tab 04/10/20 topiramate 100 mg capsule 100 mg PO DAILY 90 Days #90 ea 04/10/20 sprinkle,extended release 24 hr promethazine 25 mg tablet 25 mg PO BID PRN #60 tab 04/25/20 tizanidine 4 mg tablet 4 mg PO QID PRN #90 tab 05/01/20 docusate sodium 100 mg PO BID #20 cap 05/15/20 pantoprazole 40 mg PO QAM 30 Days #30 tab 05/15/20 ferrous sulfate 325 mg (65 mg 325 mg PO BID #60 tab 05/23/20 iron) tablet,delayed release naloxone 4 mg/actuation nasal spray 4 mg INTRANASAL Q2M PRN #2 ea 06/24/20 rizatriptan 10 mg tablet 10 mg PO .COMPLEX PRN 90 Days #27 06/24/20 tab fentanyl 25 mcg/hr transdermal 1 patch TRANSDERMAL Q72H #5 ea 07/04/20 patch Results & Data (ED) Vital Signs Vital Signs - 24 hr 07/08/20 09:06 07/08/20 09:21 07/08/20 09:22 Temperature 36.2 C L Temperature Source Temporal Artery Scan Oral Pulse Rate 117 H 101 H Pulse Rate from SpO2 Sensor Respiratory Rate 20 Respiratory Effort / Characteristics Non-Labored Spontaneous Respiratory Depth Normal Blood Pressure 167/98 H Blood Pressure Mean 121 Blood Pressure Position Sitting Pulse Oximetry 98 Oxygen Delivery Method Room Air Room Air Sepsis Recent Fever Within 48 Hours No Sepsis New/Unexplained Change in Mental Status No Sepsis Action Taken by Nursing No Action Required 07/08/20 09:30 07/08/20 10:00 07/08/20 11:00 Temperature Temperature Source Pulse Rate 94 H 86 94 H Pulse Rate from SpO2 Sensor Respiratory Rate 18 22 14 Respiratory Effort / Characteristics Respiratory Depth Blood Pressure Blood Pressure Mean Blood Pressure Position Pulse Oximetry Oxygen Delivery Method Sepsis Recent Fever Within 48 Hours Sepsis New/Unexplained Change in Mental Status Sepsis Action Taken by Nursing 07/08/20 11:01 07/08/20 11:02 07/08/20 11:30 Temperature Temperature Source Pulse Rate 91 H 99 H 92 H Pulse Rate from SpO2 Sensor Respiratory Rate 23 21 16 Respiratory Effort / Characteristics Respiratory Depth Blood Pressure 149/91 H 161/100 H Blood Pressure Mean 110 120 Blood Pressure Position Pulse Oximetry Oxygen Delivery Method Sepsis Recent Fever Within 48 Hours Sepsis New/Unexplained Change in Mental Status Sepsis Action Taken by Nursing 07/08/20 11:31 07/08/20 12:17 07/08/20 12:18 Temperature Temperature Source Pulse Rate 91 H Pulse Rate from SpO2 Sensor 85 84 Respiratory Rate 17 Respiratory Effort / Characteristics Respiratory Depth Blood Pressure 159/97 H Blood Pressure Mean 117 Blood Pressure Position Pulse Oximetry 98 99 Oxygen Delivery Method Sepsis Recent Fever Within 48 Hours Sepsis New/Unexplained Change in Mental Status Sepsis Action Taken by Nursing 07/08/20 12:30 07/08/20 12:31 07/08/20 13:07 Temperature Temperature Source Pulse Rate 89 Pulse Rate from SpO2 Sensor 91 H 89 Respiratory Rate 19 Respiratory Effort / Characteristics Respiratory Depth Blood Pressure 167/103 H Blood Pressure Mean 124 Blood Pressure Position Pulse Oximetry 100 97 Oxygen Delivery Method Sepsis Recent Fever Within 48 Hours Sepsis New/Unexplained Change in Mental Status Sepsis Action Taken by Nursing 07/08/20 13:29 07/08/20 13:30 07/08/20 13:31 Temperature Temperature Source Pulse Rate 90 93 H 88 Pulse Rate from SpO2 Sensor 91 H 93 H 88 Respiratory Rate 24 21 16 Respiratory Effort / Characteristics Respiratory Depth Blood Pressure 180/112 H 171/109 H Blood Pressure Mean 134 129 Blood Pressure Position Pulse Oximetry 99 99 98 Oxygen Delivery Method Sepsis Recent Fever Within 48 Hours Sepsis New/Unexplained Change in Mental Status Sepsis Action Taken by Nursing Laboratory Data Result diagrams: 07/08/20 09:35 07/08/20 09:35 Lab Results 07/08/20 07/08/20 07/08/20 Range/Units 09:35 09:35 09:35 WBC 4.77 L (4.8-10.8) K/uL RBC 4.61 (4.2-5.4) M/uL Hgb 12.9 (12.0-16.0) g/dL Hct 38.2 (37-47) % MCV 82.9 (80-100) fL MCH 28.0 (25-34) pg MCHC 33.8 (32-36) g/dL RDW Std Deviation 41.8 (36.4-46.3) fL RDW Coeff of Natali 13.9 (11.5-14.5) % Plt Count 167 (130-400) K/uL MPV 10.7 H (7.4-10.4) fL Immature Gran % (Auto) 0.0 % Neut % (Auto) 82.9 % Lymph % (Auto) 13.6 % Republic % (Auto) 3.1 % Eos % (Auto) 0.2 % Baso % (Auto) 0.2 % Neut # (Auto) 3.95 (1.4-6.5) K/uL Lymph # (Auto) 0.65 L (1.2-3.4) K/uL Republic # (Auto) 0.15 (0.11-0.59) K/uL Eos # (Auto) 0.01 (0-0.5) K/uL Baso # (Auto) 0.01 (0-0.2) K/uL Immature Gran # (Auto) 0.00 (0.00-0.02) K/uL PT > 90.0 H (9.0-12.0) Seconds INR > 10.7 H* (0.9-1.1) Sodium 140 (136-145) mmol/L Potassium 3.6 (3.5-5.1) mmol/L Chloride 107 (98-107) mmol/L Carbon Dioxide 24 (21-32) mmol/L Anion Gap 9.0 (3-11) BUN 10 (7-18) mg/dl Creatinine 0.89 (0.6-1.2) mg/dl Est Cr Clr Drug Dosing 74.2 ml/min Est GFR ( Amer) 82.2 Est GFR (Non-Af Amer) 70.9 BUN/Creatinine Ratio 11.1 (10-20) Glucose 161 H (70-99) mg/dl Calcium 8.9 (8.5-10.1) mg/dl Total Bilirubin 0.3 (0.2-1) mg/dl AST 12 L (15-37) U/L ALT 30 (12-78) U/L Alkaline Phosphatase 102 (45-117) U/L Troponin I < 0.015 (0-0.045) ng/ml Total Protein 7.4 (6.4-8.2) gm/dl Albumin 4.0 (3.4-5.0) gm/dl Globulin 3.4 (2.5-4.0) gm/dl Albumin/Globulin Ratio 1.2 (0.9-2) Lipase 206 (73-393) U/L Urine Color Urine Appearance (Clear) Urine pH (4.5-7.5) Ur Specific Warner (1.000-1.030) Urine Protein (Negative) Urine Glucose (UA) (Negative) Urine Ketones (Negative) Urine Blood (Negative) Urine Nitrite (Negative) Urine Bilirubin (Negative) Urine Urobilinogen (Negative) Ur Leukocyte Esterase (Negative) Urine WBC (Auto) (0-5) /hpf Urine RBC (Auto) (0-4) /hpf U Hyaline Cast (Auto) (0-5) /lpf U Epithel Cells (Auto) (0-5) /lpf Urine Bacteria (Auto) (Negative) Gastric Fluid pH Gastric Occult Blood (Negative) COVID-19 Eval Order 07/08/20 07/08/20 07/08/20 Range/Units 10:45 13:38 13:58 WBC (4.8-10.8) K/uL RBC (4.2-5.4) M/uL Hgb (12.0-16.0) g/dL Hct (37-47) % MCV (80-100) fL MCH (25-34) pg MCHC (32-36) g/dL RDW Std Deviation (36.4-46.3) fL RDW Coeff of Natali (11.5-14.5) % Plt Count (130-400) K/uL MPV (7.4-10.4) fL Immature Gran % (Auto) % Neut % (Auto) % Lymph % (Auto) % Republic % (Auto) % Eos % (Auto) % Baso % (Auto) % Neut # (Auto) (1.4-6.5) K/uL Lymph # (Auto) (1.2-3.4) K/uL Republic # (Auto) (0.11-0.59) K/uL Eos # (Auto) (0-0.5) K/uL Baso # (Auto) (0-0.2) K/uL Immature Gran # (Auto) (0.00-0.02) K/uL PT (9.0-12.0) Seconds INR (0.9-1.1) Sodium (136-145) mmol/L Potassium (3.5-5.1) mmol/L Chloride (98-107) mmol/L Carbon Dioxide (21-32) mmol/L Anion Gap (3-11) BUN (7-18) mg/dl Creatinine (0.6-1.2) mg/dl Est Cr Clr Drug Dosing ml/min Est GFR ( Amer) Est GFR (Non-Af Amer) BUN/Creatinine Ratio (10-20) Glucose (70-99) mg/dl Calcium (8.5-10.1) mg/dl Total Bilirubin (0.2-1) mg/dl AST (15-37) U/L ALT (12-78) U/L Alkaline Phosphatase (45-117) U/L Troponin I (0-0.045) ng/ml Total Protein (6.4-8.2) gm/dl Albumin (3.4-5.0) gm/dl Globulin (2.5-4.0) gm/dl Albumin/Globulin Ratio (0.9-2) Lipase (73-393) U/L Urine Color Yellow Urine Appearance Clear (Clear) Urine pH 8.0 H (4.5-7.5) Ur Specific Warner 1.014 (1.000-1.030) Urine Protein Negative (Negative) Urine Glucose (UA) Negative (Negative) Urine Ketones Negative (Negative) Urine Blood 2+ H (Negative) Urine Nitrite Negative (Negative) Urine Bilirubin Negative (Negative) Urine Urobilinogen Negative (Negative) Ur Leukocyte Esterase Negative (Negative) Urine WBC (Auto) 1-5 (0-5) /hpf Urine RBC (Auto) 10-30 H (0-4) /hpf U Hyaline Cast (Auto) 1-5 (0-5) /lpf U Epithel Cells (Auto) 5-10 H (0-5) /lpf Urine Bacteria (Auto) Negative (Negative) Gastric Fluid pH 3 Gastric Occult Blood Positive A (Negative) COVID-19 Eval Order CovFluRsv at [facility] Administered Medications Discontinued Medications Hydromorphone HCl (Hydromorphone Inj 0.5 Mg/0.5 Ml Syr) 0.5 mg IV NOW STA Stop: 07/08/20 13:08 Last Admin: 07/08/20 13:27 Dose: 0.5 mg Documented by: [id number] Sodium Chloride (Nss 1000ml) 1,000 mls @ 999 mls/hr IV .Q1H1M STA Stop: 07/08/20 10:22 Last Infusion: 07/08/20 10:41 Dose: 0 mls/hr Documented by: [id number] Admin: 07/08/20 09:40 Dose: 999 mls/hr Documented by: [id number] Promethazine HCl (Phenergan) 12.5 mg in 50.5 mls @ 202 mls/hr IV NOW STA Stop: 07/08/20 11:32 Last Infusion: 07/08/20 11:42 Dose: 0 mls/hr Documented by: [id number] Admin: 07/08/20 11:27 Dose: 202 mls/hr Documented by: [id number] Phytonadione 10 mg/ Sodium (Chloride) 51 mls @ 102 mls/hr IV ONE ONE Stop: 07/08/20 13:32 Last Infusion: 07/08/20 13:57 Dose: 0 mls/hr Documented by: [id number] Admin: 07/08/20 13:27 Dose: 102 mls/hr Documented by: [id number] Ioversol (Ioversol 100ml) 93 ml IV ONCE ONE Stop: 07/08/20 11:48 Last Admin: 07/08/20 11:47 Dose: 93 ml Documented by: [id number] Morphine Sulfate (Morphine Sulfate 4 Mg/Ml 1 Ml Carp\Vial) 4 mg IV NOW STA Stop: 07/08/20 09:23 Last Admin: 07/08/20 09:40 Dose: 4 mg Documented by: [id number] Morphine Sulfate (Morphine Sulfate 4 Mg/Ml 1 Ml Carp\Vial) 4 mg IV NOW STA Stop: 07/08/20 11:19 Last Admin: 07/08/20 11:27 Dose: 4 mg Documented by: [id number] Ondansetron HCl (Ondansetron Inj 2 Mg/Ml 2 Ml Vial) 4 mg IV NOW STA Stop: 07/08/20 09:23 Last Admin: 07/08/20 09:40 Dose: 4 mg Documented by: [id number] Discharge Plan Visit Data Chief Complaint: Abdominal Pain Stated Complaint: ABD PAIN,BACK PAIN,VOMITING,06/13 DIAG W/PANC CANCE ED Provider: Doroteo Vincent ED Midlevel Provider: Shanna Coughlin Discharge Problem: Pancreatic cancer, Supratherapeutic INR, Upper GI bleed, Mass of pancreas Patient Disposition: Admitted As Inpatient Forms Stand Alone Forms: [facility] Prescriptions Prescriptions: No Action warfarin 5 mg tablet See Rx Instructions PO UD RF: 0 atorvastatin 40 mg tablet 40 mg PO DAILY Qty: 30 RF: 5 sumatriptan succinate 6 mg/0.5 mL pen injector 6 mg subcut .COMPLEX PRN (Reason: Migraine Headache) Qty: 1 RF: 0 tizanidine 4 mg tablet 4 mg PO QID PRN (Reason: muscle spasticity) Qty: 90 RF: 5 ferrous sulfate 325 mg (65 mg iron) tablet,delayed release (DR/EC) 325 mg PO BID Qty: 60 RF: 5 rizatriptan 10 mg tablet 10 mg PO .COMPLEX PRN (Reason: Migraine Headache) 90 Days Qty: 27 RF: 1 fentanyl 25 mcg/hr patch 72 hour 1 patch transdermal Q72H Qty: 5 RF: 0 multivitamin [Daily Multi-Vitamin] tablet 1 tab PO QDD RF: 0 promethazine 25 mg tablet 25 mg PO BID PRN (Reason: migraine, nausea) Qty: 60 RF: 1 gabapentin 800 mg tablet 800 mg PO TID Qty: 90 RF: 5 topiramate 100 mg capsule,sprinkle,ER 24hr 100 mg PO DAILY 90 Days Qty: 90 RF: 1 Narcan 4 mg/actuation spray,non-aerosol 4 mg intranasal Q2M PRN (Reason: opioid overdose) Qty: 2 RF: 0 Emgality Pen 120 mg/mL pen injector 120 mg SQ MONTHLY 30 Days Qty: 1 RF: 5 clonazepam 0.5 mg tablet 0.25 mg PO HS PRN (Reason: Unknown) RF: 0 venlafaxine 75 mg capsule,extended release 24hr 37.5 mg PO QAM RF: 0 docusate sodium 100 mg Capsule 100 mg PO BID Qty: 20 RF: 0 pantoprazole 40 mg Tablet,Delayed Release (Dr/Ec) 40 mg PO QAM 30 Days Qty: 30 RF: 3 acetaminophen [Tylenol Extra Strength] 500 mg Tablet 1,000 mg PO DIRECTED PRN (Reason: Pain) RF: 0 diphenhydramine HCl [Benadryl] 25 mg Capsule 25 mg PO Q6H PRN (Reason: Allergy Symptoms) RF: 0 buspirone 30 mg tablet 30 mg PO HS RF: 0 chlorpromazine 10 mg tablet 10 mg PO HS RF: 0 venlafaxine 75 mg capsule,extended release 24hr 75 mg PO QAM RF: 0 oxybutynin chloride 10 mg tablet extended release 24hr 10 mg PO HS RF: 0 losartan 25 mg tablet 25 mg PO HS RF: 0 ergocalciferol (vitamin D2) [Vitamin D2] 1,250 mcg (50,000 unit) capsule 50,000 unit PO FR RF: 0 metformin 500 mg tablet extended release 24 hr 1,000 mg PO HS RF: 0 Referrals Referrals: Brent Dye III, CRNP [Primary Care Provider] - Discharge Problem: Pancreatic cancer Qualifiers: Pancreatic malignancy location: unspecified Qualified Code(s): C25.9 - Malignant neoplasm of pancreas, unspecified
[2020-07-08 09:42] LABS: Basophils # (auto) 0.01 K/uL (0-0.2); Basophils % (auto) 0.2 %; Eosinophils # (auto) 0.01 K/uL (0-0.5); Eosinophils % (auto) 0.2 %; Hematocrit (blood only) 38.2 % (37-47); Hemoglobin 12.9 g/dL (12.0-16.0); Lymphocytes # (auto) 0.65 K/uL (1.2-3.4); Lymphocytes % (auto) 13.6 %; Mean Corpuscular Hgb Conc 33.8 g/dL (32-36); Mean Corpuscular Volume 82.9 fL (80-100); Mean Platelet Volume 10.7 fL (7.4-10.4); Monocytes # (auto) 0.15 K/uL (0.11-0.59); Monocytes % (auto) 3.1 %; Neutrophils # (auto) 3.95 K/uL (1.4-6.5); Neutrophils % (auto) 82.9 %; Platelet Count 167 K/uL (130-400); RDW Coefficient of Variation 13.9 % (11.5-14.5); RDW Standard Deviation 41.8 fL (36.4-46.3); Red Blood Count 4.61 M/uL (4.2-5.4); White Blood Count 4.77 K/uL (4.8-10.8)
[2020-07-08 10:05] LABS: Blood Urea Nitrogen 10 mg/dl (7-18); Carbon Dioxide 24 mmol/L (21-32); Chloride 107 mmol/L (98-107); Est GFR (African American) 82.2; Est GFR (Non-African American) 70.9; Potassium 3.6 mmol/L (3.5-5.1); Sodium 140 mmol/L (136-145)
[2020-07-08 10:06] LABS: Alanine Aminotransferase 30 U/L (12-78); Aspartate Aminotransferase 12 U/L (15-37); BUN Creatinine Ratio 11.1 (10-20); Calcium 8.9 mg/dl (8.5-10.1); Creatinine Clr Calc Pharmacy 74.2 ml/min; Glucose 161 mg/dl (70-99); Lipase 206 U/L (73-393)
[2020-07-08 10:10] LABS: Albumin Globulin Ratio 1.2 (0.9-2); Alkaline Phosphatase 102 U/L (45-117); Bilirubin,Total 0.3 mg/dl (0.2-1); Globulin 3.4 gm/dl (2.5-4.0); Total Protein 7.4 gm/dl (6.4-8.2); Troponin I < 0.015 ng/ml (0-0.045)
[2020-07-08] MEDS ORDERED: PROMETHAZINE 12.5 MG/50.5 ML BAG IV STA (11:18)
[2020-07-08 11:24] LABS: INR > 10.7 (0.9-1.1); Prothrombin Time > 90.0 Seconds (9.0-12.0)
[2020-07-08 11:44] LABS: Appearance Urine Clear (Clear); Bacteria Urine Automated Negative (Negative); Bilirubin Urine Negative (Negative); Blood Urine 2+ (Negative); Color Urine Yellow; Glucose Urine UA Negative (Negative); Ketones Urine Negative (Negative); Leukocyte Esterase Urine Negative (Negative); Nitrite Urine Negative (Negative); Protein Urine Negative (Negative); Specific Gravity Urine 1.014 (1.000-1.030); Urobilinogen Urine Negative (Negative)
[2020-07-08] MEDS ORDERED: OPTIRAY 320 100ml IV ONE (11:47)
--- NOTE | 2020-07-08 12:14 | CT Scan Report ---
CT abd pelvis IV con only CLINICAL HISTORY: upper abd pain, vomiting, elevated INR PANCREATIC CARCINOMA. COMPARISON STUDY: June 12, 2020 TECHNIQUE: The patient was scanned in a dynamic helical fashion during intravenous administration of 93 cc of Optiray 320. A dose lowering technique was utilized adhering to the principles of ALARA. CT DOSE: 1024.48 mGycm FINDINGS: Lower chest: There is elevation left hemidiaphragm. There are left lower lobe and lingular atelectati c changes. There is a 4 mm right lower lobe pulmonary nodule abutting the diaphragmatic surface. Liver: There is 37 mm hypervascular mass within the right lobe the liver, likely representing a heman gioma. There is a stable indeterminate 11 mm hypodense lesion within the left hepatic lobe medially. There is an [id number] mm hypodense nodule within the inferior aspect of the right hepatic lobe. There is an indeterminate 13 mm hypodense lesion within the right hepatic lobe medially. Gallbladder: Not visualized presumed surgically absent Spleen: There is stable 33 mm hypodense splenic lesion. Pancreas: There is pancreatic ductal dilatation. There is a heterogeneous 4 cm pancreatic head mass. There is a loss of the normal fat plane between the pancreas and duodenum. Adrenal glands: Unremarkable. Kidneys: There is symmetric renal cortical enhancement. The kidneys are normal in size without hydron ephrosis. Bowel: There are no transition zones indicate bowel obstruction. There is no evidence of acute divert iculitis. There is no evidence of acute appendicitis. Peritoneum: There is no intraperitoneal free air or abdominal ascites. Vasculature: The abdominal aorta is normal in course and caliber. There is hazy infiltration surround ing the superior mesenteric artery. Adenopathy: There are borderline enlarged peripancreatic lymph nodes Pelvic viscera: The bladder, and pelvic viscera are unremarkable. Skeletal structures: No destructive osseous lesions are seen. IMPRESSION: 1. 4 cm pancreatic head mass 2. 37 mm hypervascular mass in the right lobe of the liver consistent with a hemangioma 3. There are for additional hypodense indeterminate hepatic lesions. 4. No evidence of bowel obstruction. No evidence of free air 5. No evidence of acute appendicitis. No evidence of acute diverticulitis. ACT 112: Negative or not required by law. Electronically signed by: Miguel Angel James M.D. 07/08/2020 12:12 PM
[2020-07-08] MEDS ORDERED: PHYTONADIONE 10 MG in SODIUM CHLORIDE 0.9% 50 ML IV ONE (13:03)
[2020-07-08] MEDS ORDERED: HYDROmorphone INJ 0.5 MG/0.5 ML SYR IV STA (13:07)
--- NOTE | 2020-07-08 13:27 | History & Physical Report ---
Date of Service July 08, 2020 Assessment & Plan (1) Cancer associated pain: Patient reportedly was having poor pain control as an outpatient her primary care provider tried to transition her from oxycodone to transdermal fentanyl with poor success. Patient is here predominantly for increased pain. Patient will have parenteral opiates therapy with reinstitution of with some oral opiates and discussion regarding whether fentanyl be a good choice moving forward. Agreeable talk to palliative care to discuss goals of care and likely help with adjunctive pain control. Has been the most recent diagnosis Patient is opiate associated constipation and she is taking some Colace as an outpatient will have daily senna with as needed MiraLAX associated for opiate related constipation (2) Elevated international normalized ratio (INR) due to prior anticoagulant medication ingestion: Patient's INR was 10.7 on presentation she was administered vitamin K 10 mg intravenously in the emergency department. 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 Patient states she feels this was diagnosed somewhere in May 2020 duration of treatment likely is not complete yet however with her coagulopathy currently holding her warfarin at this time patient will have daily INRs. May be beneficial discussed with [facility] hematology whether to reinstitute her treatment, labs repeating Doppler study of her celiac vessels will be undertaken Patient has currently a thrombophilic however with her elevated INR we will just simply SCDs at this time for DVT prevention We will elevated PPI to twice daily at this point time she did have gastric call positive for blood (3) Pancreatic cancer: [facility] oncology visit of 06/18/2020 shows FNA to be consistent with adenocarcinoma and pancreatic carcinoma is the working diagnosis. Perhaps coordination for inpatient port placement could be coordinated during this visit CT abdomen and pelvis 07/08/2020 IMPRESSION: 1. 4 cm pancreatic head mass 2. 37 mm hypervascular mass in the right lobe of the liver consistent with a hemangioma 3. There are for additional hypodense indeterminate hepatic lesions. 4. No evidence of bowel obstruction. No evidence of free air 5. No evidence of acute appendicitis. No evidence of acute diverticulitis. (4) Diabetes: Patient typically takes Metformin should be on insulin sliding scale at this time hopefully continue Metformin will have glycemic input with regard to this (5) Depression with anxiety: Continues BuSpar and Effexor (6) Hypertension: Patient continue losartan (7) Hyperlipidemia: Atorvastatin will be held (8) Cervicogenic headache: Is on many medications for this we will continue her Topamax Neurontin tizanidine History of Present Illness Primary Care Provider: Brent Dye, III, IP [employer]SA[employer]ORNEY [id number] with severe abdominal pain and nausea/vomiting, unable to keep anything down. The patient was recently diagnosed with pancreatic cancer (adenocarcinoma). The patient states that she is scheduled to start chemotherapy at the beginning of next month and is also supposed to get placement of a port. She states that her pcp switched her to a fentanyl patch 3 days ago from oral opiates. She states she does not have any oxycodone or other prescribed medications for breakthrough pain and her pain has been poorly controlled for the past few days because of this. Her primary reason for presentation is pain control. The patient notes that she also has been having worsening nausea and vomiting, states that the vomiting started last night and she has not been able to keep anything down since then. She denies any bloody, coffee-ground, or bilious emesis. She does have a prescription antinausea medicine, but she states this has not been helping. She notes that her pain has been 10/10 today. She denies any chest pain, chest tightness, shortness of breath, palpitations, dizziness or syncope, back pain, diarrhea or constipation, or urinary complaints. Allergies Allergy/AdvReac Type Severity Reaction Status Date / Time latex Allergy Intermediate rash Verified 07/08/20 10:03 sulfamethoxazole Allergy Intermediate itching, Verified 07/08/20 10:03 chest tightness trimethoprim Allergy Intermediate itching, Verified 07/08/20 10:03 chest tightness adhesive Allergy Unknown ITCHY SKIN Verified 07/08/20 10:03 clindamycin AdvReac Severe Diarrhea Verified 07/08/20 10:03 doxycycline AdvReac Intermediate nausea and Verified 07/08/20 10:03 vomiting Home Medications Medication Instructions Recorded Confirmed Type multivitamin 1 tab PO QDD 10/26/18 07/08/20 History atorvastatin 40 mg tablet 40 mg PO DAILY #30 tab 06/20/19 07/08/20 Rx clonazepam 0.5 mg tablet 0.25 mg PO HS PRN tab 01/04/20 07/08/20 History galcanezumab-gnlm 120 mg/mL 120 mg SQ MONTHLY 30 Days #1 ml 01/04/20 07/08/20 Rx subcutaneous pen injector sumatriptan succinate 6 mg/0.5 mL 6 mg SUBCUT .COMPLEX PRN #1 ml 03/18/20 07/08/20 Rx subcutaneous pen injector gabapentin 800 mg tablet 800 mg PO TID #90 tab 04/10/20 07/08/20 Rx topiramate 100 mg capsule 100 mg PO DAILY 90 Days #90 ea 04/10/20 07/08/20 Rx sprinkle,extended release 24 hr buspirone 30 mg PO HS 04/16/20 07/08/20 History chlorpromazine 10 mg PO HS 04/16/20 07/08/20 History promethazine 25 mg tablet 25 mg PO BID PRN #60 tab 04/25/20 07/08/20 Rx tizanidine 4 mg tablet 4 mg PO QID PRN #90 tab 05/01/20 07/08/20 Rx docusate sodium 100 mg PO BID #20 cap 05/15/20 07/08/20 Rx pantoprazole 40 mg PO QAM 30 Days #30 tab 05/15/20 07/08/20 Rx venlafaxine 75 mg capsule,extended 37.5 mg PO QAM cap 05/22/20 07/08/20 History release 24 hr ferrous sulfate 325 mg (65 mg 325 mg PO BID #60 tab 05/23/20 07/08/20 Rx iron) tablet,delayed release acetaminophen [Tylenol Extra 1,000 mg PO DIRECTED PRN 06/12/20 07/08/20 History Strength] diphenhydramine HCl [Benadryl] 25 mg PO Q6H PRN 06/12/20 07/08/20 History warfarin 5 mg tablet See Rx Instructions PO UD tab 06/21/20 07/08/20 History naloxone 4 mg/actuation nasal spray 4 mg INTRANASAL Q2M PRN #2 ea 06/24/20 07/08/20 Rx rizatriptan 10 mg tablet 10 mg PO .COMPLEX PRN 90 Days #27 06/24/20 07/08/20 Rx tab fentanyl 25 mcg/hr transdermal 1 patch TRANSDERMAL Q72H #5 ea 07/04/20 07/08/20 Rx patch ergocalciferol (vitamin D2) 50,000 unit PO FR 07/08/20 07/08/20 History [Vitamin D2] losartan 25 mg PO HS 07/08/20 07/08/20 History metformin 1,000 mg PO HS 07/08/20 07/08/20 History oxybutynin chloride 10 mg PO HS 07/08/20 07/08/20 History venlafaxine 75 mg PO QAM 07/08/20 07/08/20 History Past Med/Surg History Medical History Acute pancreatitis Depression (09/09/12) Diabetes Headache History of uterine fibroid Hyperlipidemia Hypertension Hypokalemia Migraine (09/09/12) Nausea & vomiting Pancreatic duct stricture Pancreatitis, acute Panic attack (09/09/12) PMB (postmenopausal bleeding) Surgical History History of excision of lesion History of laparoscopic cholecystectomy S/P surgical removal of pilonidal cyst Family History Sister Endometrial cancer Arthritis Celiac disease Hypertension Diabetes Mother Hypertension Congestive heart failure (CHF) Kidney failure Heart disease Father Parkinson disease Myocardial infarction Graves disease Skin cancer Denies family history of Ovarian cancer Prostate cancer Breast cancer Colorectal cancer Social History (Updated 06/24/20 @ 10:17 by MITZY Fine) Smoking Status: Former smoker Tobacco Type: Cigarettes Age Started Using Tobacco: 21; Age Quit Using Tobacco: 58; packs per day: 1; Years Smoked: 37; Cigarettes Per Day: 2; Number of Years Since Quit: 1; Second Hand Exposure: No; Hx Alcohol Use: No Hx Substance Use: No Preferred Language: Romansh Communication Ability: Effective Visual Impairment: No Limitations Hearing Ability: Normal Airline Pilot/First Officer Required: No Beliefs That Will Affect Care: None marital status: Current Living Situation: Family Current Living Situation Comment: sister current occupational status: disabled Feels Safe at Home: Yes Childhood Exposure to Second-Hand Smoke: No Dental Care, Regularly: No Physical Activity Frequency: Does not Exercise Seatbelt Use: always Sunscreen Use: Yes Assistive Devices: None Review of Systems Review of Systems: Patient is in moderate distress due to pain she is fatigued due to administration of opiates emergency department no headache, blurry or double vision no speech or swallowing issues no chest pain, pressure or palpitations no shortness of breath, cough or wheezes She has centralized abdominal pain which is dull in nature radiating to her back mild nausea without vomiting constipation is present no dysuria, hematuria or frequency no focal joint pain or swelling Thoracic back pain without radiation, no, CVA tenderness or radicular pain no bruising, bleeding or rashes no focal signs of weakness or numbness or altered sensation no complaints of anxiety or depression.. Physical Exam Physical Exam: The patient appeared chronically ill and emotionally distraught Vital signs as documented. Head exam is normocephalic atraumatic no scleral icterus Neck is without JVD, thyromegaly, or carotid bruits. Lungs are clear to auscultation, no focal loss of breath sounds Cardiac exam, Rhythm is regular.. No murmurs, rubs or gallops. Abdominal exam reveals normal bowel sounds producible epigastric pain without organomegaly Extremities are nonedematous and both pedal pulses are present Neurologic exam is alert and oriented, no focal loss of strength or sensation Skin is without bruises or rashes Psychologically is with concerns for depression to deal with a recent diagnosis of cancer Results & Data Results & Data ([facility]) Vital Signs (Past 12 Hours) Vital Signs Temp Pulse Resp BP Pulse Ox 07/08/20 12:18 99 07/08/20 12:17 159/97 H 98 07/08/20 11:31 91 H 17 07/08/20 11:30 92 H 16 161/100 H 07/08/20 11:02 99 H 21 07/08/20 11:01 91 H 23 149/91 H 07/08/20 11:00 94 H 14 07/08/20 10:00 86 22 07/08/20 09:30 94 H 18 07/08/20 09:21 101 H 07/08/20 09:06 97.2 F L 117 H 20 167/98 H 98 PG Care Time/CCT Total # of Minutes Spent Total Time Spent with Patient: Total time spent is greater than 50% in coordination of care (as documented) at patient's floor/unit and/or counseling patient: Coding Level of Care Code 38507 Initial Inpt Care Lvl 3 Diagnoses Cancer associated pain G89.3 Elevated international normalized ratio (INR) due to prior anticoagulant medication ingestion R79.1 Pancreatic cancer C25.9 Diabetes E11.9 Diabetes mellitus complication status: without complication Diabetes mellitus used car lot porter insulin use: without used car lot porter use Diabetes mellitus type: type 2 Depression with anxiety F41.8 Hypertension I10 Hypertension type: essential hypertension Hyperlipidemia E78.5 Hyperlipidemia type: unspecified Cervicogenic headache R51 (1) Diabetes Diabetes mellitus complication status: without complication Diabetes mellitus used car lot porter insulin use: without used car lot porter use Diabetes mellitus type: type 2 Qualified Code(s): E11.9 - Type 2 diabetes mellitus without complications (2) Hyperlipidemia Hyperlipidemia type: unspecified Qualified Code(s): E78.5 - Hyperlipidemia, unspecified (3) Hypertension Hypertension type: essential hypertension Qualified Code(s): I10 - Essential (primary) hypertension
[2020-07-08 13:51] LABS: Gastric Occult Blood Positive (Negative); pH Gastric Fluid 3
[2020-07-08 15:09] LABS: Influenza A virus by PCR Negative (Neg); Influenza B virus by PCR Negative (Neg); RSV by PCR Negative (Neg); SARS CoV2 RNA(COVID-19) InHosp NEGATIVE (Negative)
[2020-07-08] MEDS ORDERED: HYDROmorphone INJ 1 MG/ML SYRINGE IV STA (15:14)
--- NOTE | 2020-07-08 16:13 | Electrocardiogram Report ---
Test Reason : Blood Pressure : / mmHG Vent. Rate : 092 BPM Atrial Rate : 092 BPM P-R Int : 120 ms QRS Dur : 082 ms QT Int : 356 ms P-R-T Axes : 064 002 031 degrees QTc Int : 440 ms Poor data quality, interpretation may be adversely affected Normal sinus rhythm Normal ECG When compared with ECG of 20-APR-2020 07:46, Vent. rate has increased BY 40 BPM Non-specific change in ST segment in Inferior leads Confirmed by Wyatt Cueto ([id number]) on 07/08/2020 4:13:42 PM Referred By: REFERRED SELF Confirmed By:Chavez Cueto
[2020-07-08] MEDS ORDERED: CARBOHYDRATES FOR HYPOGLYCEMIA PO PRN (16:40)
[2020-07-08] MEDS ORDERED: ALUMINUM/MAGNESIUM SUSP 30 ML UDC PO PRN (16:40)
[2020-07-08] MEDS ORDERED: HYDROmorphone INJ 0.5 MG/0.5 ML SYR IV PRN (16:40)
[2020-07-08] MEDS ORDERED: POLYETHYLENE (MIRALAX) 17 GM PACK PO PRN (16:40)
[2020-07-08] MEDS ORDERED: DEXTROSE 50% 50 ML SYRINGE IV PRN (16:40)
[2020-07-08] MEDS ORDERED: GLUCOSE 40% GEL 15 GM TUBE PO PRN (16:40)
[2020-07-08] MEDS ORDERED: GLUCAGON FOR INJ 1 MG VIAL SQ PRN (16:40)
[2020-07-08] MEDS ORDERED: tiZANidine HCL 4 MG TABLET PO PRN (16:40)
[2020-07-08] MEDS ORDERED: GLUCOSE 10 TABS/TUBE PO PRN (16:40)
[2020-07-08] MEDS ORDERED: PHARMACY GLYCEMIC MGMT CONSULT PRN (17:25)
[2020-07-08] MEDS: MULTIVITAMIN TAB PO SCH (17:50)
[2020-07-08] MEDS: SENNA 8.6 MG TAB PO SCH (17:50)
[2020-07-08] MEDS: CHECK fentaNYL PATCH PLACEMENT SCH (17:50)
[2020-07-08] MEDS: oxyCODONE HCL IR 5 MG TAB (IMMEDIATE RELEASE) PO PRN (18:50)
[2020-07-08] MEDS: fentaNYL 25 MCG/HR TDSY TD SCH (19:31)
[2020-07-08] MEDS ORDERED: ONDANSETRON INJ 2 MG/ML 2 ML VIAL IV PRN (19:40)
[2020-07-08] MEDS ORDERED: MoRPHine SULFATE 2 MG/ML CARP IV ONE (19:45)
[2020-07-08] MEDS: busPIRone 15 MG TAB PO SCH (20:49)
[2020-07-08] MEDS: LOSARTAN POTASSIUM 25 MG TAB PO SCH (20:49)
[2020-07-08] MEDS: OXYBUTYNIN CHLORIDE XL 5 MG TABCR PO SCH (20:49)
[2020-07-08] MEDS: PANTOprazole 40 MG TAB PO SCH (20:50)
[2020-07-08] MEDS: GABAPENTIN 800 MG TAB PO SCH (20:50)
[2020-07-08] MEDS: ACETAMINOPHEN 500 MG TAB PO SCH (20:50)
[2020-07-08] MEDS: HYDROmorphone INJ 1 MG/ML SYRINGE IV PRN (20:58)
[2020-07-08] MEDS ORDERED: metFORMIN HCL ER 500 MG TABCR PO SCH (21:00)
[2020-07-08] MEDS: INSULIN ASPART 100 UNITS/ML 3 ML PEN SC SCH (21:17)
[2020-07-09] MEDS: HYDROmorphone INJ 1 MG/ML SYRINGE IV PRN ×6 (00:56→23:56)
[2020-07-09] MEDS: CHECK fentaNYL PATCH PLACEMENT SCH ×4 (00:56→23:58)
[2020-07-09] MEDS: oxyCODONE HCL IR 5 MG TAB (IMMEDIATE RELEASE) PO PRN ×5 (01:51→21:56)
[2020-07-09] MEDS: GABAPENTIN 800 MG TAB PO SCH ×3 (07:55→21:54)
[2020-07-09] MEDS: PANTOprazole 40 MG TAB PO SCH ×2 (07:55→21:52)
[2020-07-09] MEDS: ACETAMINOPHEN 500 MG TAB PO SCH ×3 (07:55→21:51)
[2020-07-09] MEDS: VENLAFAXINE HCL XR 37.5 MG CAPXR PO SCH (07:56)
[2020-07-09] MEDS: VENLAFAXINE HCL XR 75 MG CAPXR PO SCH (07:56)
[2020-07-09] MEDS: SENNA 8.6 MG TAB PO SCH (07:56)
[2020-07-09 08:27] LABS: INR 1.1 (0.9-1.1); Prothrombin Time 11.5 Seconds (9.0-12.0)
[2020-07-09 08:36] LABS: Estimated Average Glucose 126 mg/dl
[2020-07-09 08:40] LABS: BUN Creatinine Ratio 9.7 (10-20); Calcium 8.8 mg/dl (8.5-10.1); Creatinine Clr Calc Pharmacy 86.9 ml/min; Est GFR (African American) 99.5; Est GFR (Non-African American) 85.9; Potassium 3.1 mmol/L (3.5-5.1)
--- NOTE | 2020-07-09 09:27 | Hospitalist Progress Note ---
Date of Service July 09, 2020 Assessment & Plan (1) Cancer associated pain: * Given Fentanyl patch over weekend from PCP but did not have PO alternatives for breakthrough d/t insurance * Utilizing oxycodone PO and morphine prn for control while inpatient. Continue bowel regimen for opiate related constipation * Already on gabapentin 800mg TID * Will consult pain management about possible benefits from plexus injection to see if any added relief -- would like to avoid escalating dose/decreased frequency of morphine at this current time. 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 Haq -- to switch to lovenox at last appointment but that appointment was cancelled --> discussed with patient and will switch to Lovenox and she will have JOSSELIN administer at home. * --> Holding for now and utilizing SCDs given OR for tomorrow for a-port placement with Dr. Umanzor * May be beneficial discussed with [facility] hematology whether to reinstitute her treatment, labs repeating Doppler study of her celiac vessels will be undertaken --> message sent to Dr. Marshall on [employer] today to inform about inpatient stay * PPI increased to BID given +gastric occult with supratherapeutic INR. No further hematemesis. h/h stable (3) Pancreatic cancer: * [facility] oncology visit of 06/18/2020 shows FNA to be consistent with adenocarcinoma and pancreatic carcinoma is the working diagnosis. Lipase wnl * CT abdomen and pelvis 07/08/2020 IMPRESSION: * 1. 4 cm pancreatic head mass * 2. 37 mm hypervascular mass in the right lobe of the liver consistent with a hemangioma * 3. There are for additional hypodense indeterminate hepatic lesions. * 4. No evidence of bowel obstruction. No evidence of free air * 5. No evidence of acute appendicitis. No evidence of acute diverticulitis. * General surgery consulted for a-port placement -- appreciate assistance * NPO after mignight for intervention * INR already reversed Messaged Dr. Rolando A-port placement for tomorrow as above Repeating CA 19-9 --> prior levels 172 in May, 130s on repeat Was to begin chemo next month -- would want to get her in sooner if possible MRI abdomen pending for further eval of additional indeterminate hepatic lesions (4) Diabetes: Pharm consulted A1c 6 -- new from last admission secondary to pancreatic insufficiency in pt with pancreatic ca ISS while inpatient, holding metformin BSGs acceptable (5) Depression with anxiety: Continues BuSpar and Effexor Klonpin prn (6) Hypertension: chronic stable continue losartan 25mg (7) Hyperlipidemia: Atorvastatin will be held (8) Cervicogenic headache: Is on many medications for this we will continue her Topamax Neurontin tizanidine no headache reported today DVT Proph SCDS for now INR reversed as above, currently 1.1 but planned surgery in AM --> plans for Lovenox at discharge per discussion with Dr. Haq and patient Dispo: NPO after midnight for port placement Admission and Anticipated Discharge Date Admission Date: July 08, 2020 Subjective Patient evaluated this afternoon. Seen at the end of April when all of current process started however at that time pathology had been negative. Had been on Fentanyl patch this weekend but was unable to fill PO medications due to insurance authorization. Pain >10/10 on admission, down to about an 8/10. Already on higher dose gabapentin. Pain described as "bowl of Jello" in her epigastric region that wraps around her sides and travels through to her back. Hard to further describe as far as quality. Discussed pain management consultation for possible plexus injection vs possible alternative medications to help better control her pain. Port placement was to be sometime in the next month prior to starting chemo (already approved per sister), however expedite and will obtain tomorrow due to possible metastatic nature given liver lesions. Obtaining MRI for further eval of liver lesions -- she was to have work-up and undergo possible Whipple procedure, however if metastatic disease, obviously she would not be candidate at that point. No further hematemesis. Discussed INR and conversation with Dr. Haq with plans for switch to Lovenox for treatment/prevention lifelong given active CA. Yaquelin states she will need her brother in law to help administer, which is a person she also lives with along with her other sister. Palliative to see patient as I was leaving the room. Lot of concerns regarding navigation of various health systems from both patient and during conversation with sister on the phone this afternoon. If this is metastatic and she is no longer a surgical candidate, she would like to see about switching to [facility] for better continuity of care. Also added CA 19-9 to AM labs -- was in 172 jun 13 at [place] [facility], and repeat she states at [facility] lab down to the 130s. Will repeat to see where she is at currently. Also messaged Dr Marshall at request to keep him in the loop and help to coordinate care closer to time of d/c. Questions/concerns addressed at this time. Review of Systems Review of Systems: All systems reviewed & are unremarkable except as noted in HPI & below Physical Exam Physical Exam: The patient appeared chronically ill and emotionally distraught, labile Head exam is normocephalic atraumatic no scleral icterus Neck is without JVD, thyromegaly, or carotid bruits. Lungs are clear to auscultation, no focal loss of breath sounds Cardiac exam: RRR, no m/r/g, no edema Abd: +BS, tender to palpation in epigastric region, no hepatosplenomegaly appreciated Skin: bruising to posterior left back, tender to palpation Ext: moves all extremities Neuro: no focal deficits Psych: AOx3, anxious affect, tearful at times regarding recent diagnosis Results & Data Results & Data ([facility]) Vital Signs (Past 12 Hours) Vital Signs Temp Pulse Resp BP Pulse Ox 07/09/20 07:44 37.2 C 95 H 16 137/85 95 07/08/20 21:55 37.5 C 87 16 131/76 95 Laboratory Results 07/09/20 07/09/20 07/09/20 Range/Units 08:24 07:41 07:41 WBC (4.8-10.8) K/uL RBC (4.2-5.4) M/uL Hgb (12.0-16.0) g/dL Hct (37-47) % MCV (80-100) fL MCH (25-34) pg MCHC (32-36) g/dL RDW Std Deviation (36.4-46.3) fL RDW Coeff of Natali (11.5-14.5) % Plt Count (130-400) K/uL MPV (7.4-10.4) fL Immature Gran % (Auto) % Neut % (Auto) % Lymph % (Auto) % [place] % (Auto) % Eos % (Auto) % Baso % (Auto) % Neut # (Auto) (1.4-6.5) K/uL Lymph # (Auto) (1.2-3.4) K/uL [place] # (Auto) (0.11-0.59) K/uL Eos # (Auto) (0-0.5) K/uL Baso # (Auto) (0-0.2) K/uL Immature Gran # (Auto) (0.00-0.02) K/uL PT (9.0-12.0) Seconds INR (0.9-1.1) Sodium 138 (136-145) mmol/L Potassium 3.1 L (3.5-5.1) mmol/L Chloride 107 (98-107) mmol/L Carbon Dioxide 24 (21-32) mmol/L Anion Gap 7.0 (3-11) BUN 7 (7-18) mg/dl Creatinine 0.76 (0.6-1.2) mg/dl Est Cr Clr Drug Dosing 86.9 ml/min Est GFR ( Amer) 99.5 Est GFR (Non-Af Amer) 85.9 BUN/Creatinine Ratio 9.7 L (10-20) Glucose 147 H (70-99) mg/dl POC Glucose 121 H (70-99) mg/dl Estimat Average Glucose 126 mg/dl Hemoglobin A1c 6.0 H (4.5-5.6) % Calcium 8.8 (8.5-10.1) mg/dl Total Bilirubin (0.2-1) mg/dl AST (15-37) U/L ALT (12-78) U/L Alkaline Phosphatase (45-117) U/L Troponin I (0-0.045) ng/ml Total Protein (6.4-8.2) gm/dl Albumin (3.4-5.0) gm/dl Globulin (2.5-4.0) gm/dl Albumin/Globulin Ratio (0.9-2) Lipase (73-393) U/L Urine Color Urine Appearance (Clear) Urine pH (4.5-7.5) Ur Specific [place] (1.000-1.030) Urine Protein (Negative) Urine Glucose (UA) (Negative) Urine Ketones (Negative) Urine Blood (Negative) Urine Nitrite (Negative) Urine Bilirubin (Negative) Urine Urobilinogen (Negative) Ur Leukocyte Esterase (Negative) Urine WBC (Auto) (0-5) /hpf Urine RBC (Auto) (0-4) /hpf U Hyaline Cast (Auto) (0-5) /lpf U Epithel Cells (Auto) (0-5) /lpf Urine Bacteria (Auto) (Negative) Gastric Fluid pH Gastric Occult Blood (Negative) COVID-19 Eval Order SARS-CoV-2 (PCR) (Negative) Influenza Type A (PCR) (Neg) Influenza Type B (PCR) (Neg) RSV (RT-PCR) (Neg) 07/09/20 07/08/20 07/08/20 Range/Units 07:41 20:33 17:09 WBC (4.8-10.8) K/uL RBC (4.2-5.4) M/uL Hgb (12.0-16.0) g/dL Hct (37-47) % MCV (80-100) fL MCH (25-34) pg MCHC (32-36) g/dL RDW Std Deviation (36.4-46.3) fL RDW Coeff of Natali (11.5-14.5) % Plt Count (130-400) K/uL MPV (7.4-10.4) fL Immature Gran % (Auto) % Neut % (Auto) % Lymph % (Auto) % [place] % (Auto) % Eos % (Auto) % Baso % (Auto) % Neut # (Auto) (1.4-6.5) K/uL Lymph # (Auto) (1.2-3.4) K/uL [place] # (Auto) (0.11-0.59) K/uL Eos # (Auto) (0-0.5) K/uL Baso # (Auto) (0-0.2) K/uL Immature Gran # (Auto) (0.00-0.02) K/uL PT 11.5 (9.0-12.0) Seconds INR 1.1 (0.9-1.1) Sodium (136-145) mmol/L Potassium (3.5-5.1) mmol/L Chloride (98-107) mmol/L Carbon Dioxide (21-32) mmol/L Anion Gap (3-11) BUN (7-18) mg/dl Creatinine (0.6-1.2) mg/dl Est Cr Clr Drug Dosing ml/min Est GFR ( Amer) Est GFR (Non-Af Amer) BUN/Creatinine Ratio (10-20) Glucose (70-99) mg/dl POC Glucose 132 H 116 H (70-99) mg/dl Estimat Average Glucose mg/dl Hemoglobin A1c (4.5-5.6) % Calcium (8.5-10.1) mg/dl Total Bilirubin (0.2-1) mg/dl AST (15-37) U/L ALT (12-78) U/L Alkaline Phosphatase (45-117) U/L Troponin I (0-0.045) ng/ml Total Protein (6.4-8.2) gm/dl Albumin (3.4-5.0) gm/dl Globulin (2.5-4.0) gm/dl Albumin/Globulin Ratio (0.9-2) Lipase (73-393) U/L Urine Color Urine Appearance (Clear) Urine pH (4.5-7.5) Ur Specific [place] (1.000-1.030) Urine Protein (Negative) Urine Glucose (UA) (Negative) Urine Ketones (Negative) Urine Blood (Negative) Urine Nitrite (Negative) Urine Bilirubin (Negative) Urine Urobilinogen (Negative) Ur Leukocyte Esterase (Negative) Urine WBC (Auto) (0-5) /hpf Urine RBC (Auto) (0-4) /hpf U Hyaline Cast (Auto) (0-5) /lpf U Epithel Cells (Auto) (0-5) /lpf Urine Bacteria (Auto) (Negative) Gastric Fluid pH Gastric Occult Blood (Negative) COVID-19 Eval Order SARS-CoV-2 (PCR) (Negative) Influenza Type A (PCR) (Neg) Influenza Type B (PCR) (Neg) RSV (RT-PCR) (Neg) 07/08/20 07/08/20 07/08/20 Range/Units 13:58 13:58 13:38 WBC (4.8-10.8) K/uL RBC (4.2-5.4) M/uL Hgb (12.0-16.0) g/dL Hct (37-47) % MCV (80-100) fL MCH (25-34) pg MCHC (32-36) g/dL RDW Std Deviation (36.4-46.3) fL RDW Coeff of Natali (11.5-14.5) % Plt Count (130-400) K/uL MPV (7.4-10.4) fL Immature Gran % (Auto) % Neut % (Auto) % Lymph % (Auto) % [place] % (Auto) % Eos % (Auto) % Baso % (Auto) % Neut # (Auto) (1.4-6.5) K/uL Lymph # (Auto) (1.2-3.4) K/uL [place] # (Auto) (0.11-0.59) K/uL Eos # (Auto) (0-0.5) K/uL Baso # (Auto) (0-0.2) K/uL Immature Gran # (Auto) (0.00-0.02) K/uL PT (9.0-12.0) Seconds INR (0.9-1.1) Sodium (136-145) mmol/L Potassium (3.5-5.1) mmol/L Chloride (98-107) mmol/L Carbon Dioxide (21-32) mmol/L Anion Gap (3-11) BUN (7-18) mg/dl Creatinine (0.6-1.2) mg/dl Est Cr Clr Drug Dosing ml/min Est GFR ( Amer) Est GFR (Non-Af Amer) BUN/Creatinine Ratio (10-20) Glucose (70-99) mg/dl POC Glucose (70-99) mg/dl Estimat Average Glucose mg/dl Hemoglobin A1c (4.5-5.6) % Calcium (8.5-10.1) mg/dl Total Bilirubin (0.2-1) mg/dl AST (15-37) U/L ALT (12-78) U/L Alkaline Phosphatase (45-117) U/L Troponin I (0-0.045) ng/ml Total Protein (6.4-8.2) gm/dl Albumin (3.4-5.0) gm/dl Globulin (2.5-4.0) gm/dl Albumin/Globulin Ratio (0.9-2) Lipase (73-393) U/L Urine Color Urine Appearance (Clear) Urine pH (4.5-7.5) Ur Specific [place] (1.000-1.030) Urine Protein (Negative) Urine Glucose (UA) (Negative) Urine Ketones (Negative) Urine Blood (Negative) Urine Nitrite (Negative) Urine Bilirubin (Negative) Urine Urobilinogen (Negative) Ur Leukocyte Esterase (Negative) Urine WBC (Auto) (0-5) /hpf Urine RBC (Auto) (0-4) /hpf U Hyaline Cast (Auto) (0-5) /lpf U Epithel Cells (Auto) (0-5) /lpf Urine Bacteria (Auto) (Negative) Gastric Fluid pH 3 Gastric Occult Blood Positive A (Negative) COVID-19 Eval Order CovFluRsv at [facility] SARS-CoV-2 (PCR) NEGATIVE (Negative) Influenza Type A (PCR) Negative (Neg) Influenza Type B (PCR) Negative (Neg) RSV (RT-PCR) Negative (Neg) 07/08/20 07/08/20 07/08/20 Range/Units 10:45 09:35 09:35 WBC (4.8-10.8) K/uL RBC (4.2-5.4) M/uL Hgb (12.0-16.0) g/dL Hct (37-47) % MCV (80-100) fL MCH (25-34) pg MCHC (32-36) g/dL RDW Std Deviation (36.4-46.3) fL RDW Coeff of Natali (11.5-14.5) % Plt Count (130-400) K/uL MPV (7.4-10.4) fL Immature Gran % (Auto) % Neut % (Auto) % Lymph % (Auto) % [place] % (Auto) % Eos % (Auto) % Baso % (Auto) % Neut # (Auto) (1.4-6.5) K/uL Lymph # (Auto) (1.2-3.4) K/uL [place] # (Auto) (0.11-0.59) K/uL Eos # (Auto) (0-0.5) K/uL Baso # (Auto) (0-0.2) K/uL Immature Gran # (Auto) (0.00-0.02) K/uL PT > 90.0 H (9.0-12.0) Seconds INR > 10.7 H* (0.9-1.1) Sodium 140 (136-145) mmol/L Potassium 3.6 (3.5-5.1) mmol/L Chloride 107 (98-107) mmol/L Carbon Dioxide 24 (21-32) mmol/L Anion Gap 9.0 (3-11) BUN 10 (7-18) mg/dl Creatinine 0.89 (0.6-1.2) mg/dl Est Cr Clr Drug Dosing 74.2 ml/min Est GFR ( Amer) 82.2 Est GFR (Non-Af Amer) 70.9 BUN/Creatinine Ratio 11.1 (10-20) Glucose 161 H (70-99) mg/dl POC Glucose (70-99) mg/dl Estimat Average Glucose mg/dl Hemoglobin A1c (4.5-5.6) % Calcium 8.9 (8.5-10.1) mg/dl Total Bilirubin 0.3 (0.2-1) mg/dl AST 12 L (15-37) U/L ALT 30 (12-78) U/L Alkaline Phosphatase 102 (45-117) U/L Troponin I < 0.015 (0-0.045) ng/ml Total Protein 7.4 (6.4-8.2) gm/dl Albumin 4.0 (3.4-5.0) gm/dl Globulin 3.4 (2.5-4.0) gm/dl Albumin/Globulin Ratio 1.2 (0.9-2) Lipase 206 (73-393) U/L Urine Color Yellow Urine Appearance Clear (Clear) Urine pH 8.0 H (4.5-7.5) Ur Specific [place] 1.014 (1.000-1.030) Urine Protein Negative (Negative) Urine Glucose (UA) Negative (Negative) Urine Ketones Negative (Negative) Urine Blood 2+ H (Negative) Urine Nitrite Negative (Negative) Urine Bilirubin Negative (Negative) Urine Urobilinogen Negative (Negative) Ur Leukocyte Esterase Negative (Negative) Urine WBC (Auto) 1-5 (0-5) /hpf Urine RBC (Auto) 10-30 H (0-4) /hpf U Hyaline Cast (Auto) 1-5 (0-5) /lpf U Epithel Cells (Auto) 5-10 H (0-5) /lpf Urine Bacteria (Auto) Negative (Negative) Gastric Fluid pH Gastric Occult Blood (Negative) COVID-19 Eval Order SARS-CoV-2 (PCR) (Negative) Influenza Type A (PCR) (Neg) Influenza Type B (PCR) (Neg) RSV (RT-PCR) (Neg) 07/08/20 Range/Units 09:35 WBC 4.77 L (4.8-10.8) K/uL RBC 4.61 (4.2-5.4) M/uL Hgb 12.9 (12.0-16.0) g/dL Hct 38.2 (37-47) % MCV 82.9 (80-100) fL MCH 28.0 (25-34) pg MCHC 33.8 (32-36) g/dL RDW Std Deviation 41.8 (36.4-46.3) fL RDW Coeff of Natali 13.9 (11.5-14.5) % Plt Count 167 (130-400) K/uL MPV 10.7 H (7.4-10.4) fL Immature Gran % (Auto) 0.0 % Neut % (Auto) 82.9 % Lymph % (Auto) 13.6 % [place] % (Auto) 3.1 % Eos % (Auto) 0.2 % Baso % (Auto) 0.2 % Neut # (Auto) 3.95 (1.4-6.5) K/uL Lymph # (Auto) 0.65 L (1.2-3.4) K/uL [place] # (Auto) 0.15 (0.11-0.59) K/uL Eos # (Auto) 0.01 (0-0.5) K/uL Baso # (Auto) 0.01 (0-0.2) K/uL Immature Gran # (Auto) 0.00 (0.00-0.02) K/uL PT (9.0-12.0) Seconds INR (0.9-1.1) Sodium (136-145) mmol/L Potassium (3.5-5.1) mmol/L Chloride (98-107) mmol/L Carbon Dioxide (21-32) mmol/L Anion Gap (3-11) BUN (7-18) mg/dl Creatinine (0.6-1.2) mg/dl Est Cr Clr Drug Dosing ml/min Est GFR ( Amer) Est GFR (Non-Af Amer) BUN/Creatinine Ratio (10-20) Glucose (70-99) mg/dl POC Glucose (70-99) mg/dl Estimat Average Glucose mg/dl Hemoglobin A1c (4.5-5.6) % Calcium (8.5-10.1) mg/dl Total Bilirubin (0.2-1) mg/dl AST (15-37) U/L ALT (12-78) U/L Alkaline Phosphatase (45-117) U/L Troponin I (0-0.045) ng/ml Total Protein (6.4-8.2) gm/dl Albumin (3.4-5.0) gm/dl Globulin (2.5-4.0) gm/dl Albumin/Globulin Ratio (0.9-2) Lipase (73-393) U/L Urine Color Urine Appearance (Clear) Urine pH (4.5-7.5) Ur Specific [place] (1.000-1.030) Urine Protein (Negative) Urine Glucose (UA) (Negative) Urine Ketones (Negative) Urine Blood (Negative) Urine Nitrite (Negative) Urine Bilirubin (Negative) Urine Urobilinogen (Negative) Ur Leukocyte Esterase (Negative) Urine WBC (Auto) (0-5) /hpf Urine RBC (Auto) (0-4) /hpf U Hyaline Cast (Auto) (0-5) /lpf U Epithel Cells (Auto) (0-5) /lpf Urine Bacteria (Auto) (Negative) Gastric Fluid pH Gastric Occult Blood (Negative) COVID-19 Eval Order SARS-CoV-2 (PCR) (Negative) Influenza Type A (PCR) (Neg) Influenza Type B (PCR) (Neg) RSV (RT-PCR) (Neg) Diagnostic Findings CT abd pelvis IV con only CLINICAL HISTORY: upper abd pain, vomiting, elevated INR PANCREATIC CARCINOMA. COMPARISON STUDY: June 12, 2020 TECHNIQUE: The patient was scanned in a dynamic helical fashion during intravenous administration of 93 cc of Optiray 320. A dose lowering technique was utilized adhering to the principles of ALARA. CT DOSE: 1024.48 mGycm FINDINGS: Lower chest: There is elevation left hemidiaphragm. There are left lower lobe and lingular atelectatic changes. There is a 4 mm right lower lobe pulmonary nodule abutting the diaphragmatic surface. Liver: There is 37 mm hypervascular mass within the right lobe the liver, likely representing a hemangioma. There is a stable indeterminate 11 mm hypodense lesion within the left hepatic lobe medially. There is an indeterminate 13 mm hypodense nodule within the inferior aspect of the right hepatic lobe. There is an indeterminate 13 mm hypodense lesion within the right hepatic lobe medially. Gallbladder: Not visualized presumed surgically absent Spleen: There is stable 33 mm hypodense splenic lesion. Pancreas: There is pancreatic ductal dilatation. There is a heterogeneous 4 cm pancreatic head mass. There is a loss of the normal fat plane between the pancreas and duodenum. Adrenal glands: Unremarkable. Kidneys: There is symmetric renal cortical enhancement. The kidneys are normal in size without hydronephrosis. Bowel: There are no transition zones indicate bowel obstruction. There is no evidence of acute diverticulitis. There is no evidence of acute appendicitis. Peritoneum: There is no intraperitoneal free air or abdominal ascites. Vasculature: The abdominal aorta is normal in course and caliber. There is hazy infiltration surrounding the superior mesenteric artery. Adenopathy: There are borderline enlarged peripancreatic lymph nodes Pelvic viscera: The bladder, and pelvic viscera are unremarkable. Skeletal structures: No destructive osseous lesions are seen. IMPRESSION: 1. 4 cm pancreatic head mass 2. 37 mm hypervascular mass in the right lobe of the liver consistent with a hemangioma 3. There are for additional hypodense indeterminate hepatic lesions. 4. No evidence of bowel obstruction. No evidence of free air 5. No evidence of acute appendicitis. No evidence of acute diverticulitis. 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 Elevated international normalized ratio (INR) due to prior anticoagulant medication ingestion R79.1 Pancreatic cancer C25.9 Diabetes E11.9 Diabetes mellitus complication status: without complication Diabetes mellitus chcf insulin use: without intermodal owner operator truck driver use Diabetes mellitus type: type 2 Depression with anxiety F41.8 Hypertension I10 Hypertension type: essential hypertension Hyperlipidemia E78.5 Hyperlipidemia type: unspecified Cervicogenic headache R51 Additional Codes Prolonged Care Time - Prolonged Care Time: Yes ([id number]) (1) Diabetes Diabetes mellitus complication status: without complication Diabetes mellitus intermodal owner operator truck driver insulin use: without intermodal owner operator truck driver use Diabetes mellitus type: type 2 Qualified Code(s): E11.9 - Type 2 diabetes mellitus without complications (2) Hyperlipidemia Hyperlipidemia type: unspecified Qualified Code(s): E78.5 - Hyperlipidemia, unspecified (3) Hypertension Hypertension type: essential hypertension Qualified Code(s): I10 - Essential (primary) hypertension
--- NOTE | 2020-07-09 09:56 | Surgery Consultation ---
Date of Consultation July 09, 2020 Assessment & Plan (1) Pancreatic cancer: This is a 60y F with a recent diagnosis of pancreatic adenocarcinoma on coumadin for SMV thrombus who presented to the [facility] ED on 07/08/20 with complaints of abdominal pain, nausea/vomiting. CT scan outside of her known 4cm pancreatic cancer. She presented with a supratherapeutic INR that has been corrected with vitamin K and is now 1.1. We were consulted for consider a port placement during this admission. She was seen by [facility] and scheduled for surgery next week, but patient prefers to have it performed while she is here if able and save her a trip to [place]. Patient ate breakfast today. We will plan to make her NPO at midnight and place port tomorrow in the OR. Continue to hold coumadin. Patient agreeable with plan. Dr. Umanzor has obtained consent. as above. discussed options. discussed risks ( bleeding/infection/vascular injury/pneumothorax/malfunction of port etc).... questions answered....will proceed with subclavian mediport insertion tomorrow. History of Present Illness Attending Physician: Bryce Bond MD History of Present Illness This is a 60y F with a recent diagnosis of pancreatic cancer on coumadin for SMV thrombus who presented to the [facility] ED on 07/08/20 with complaints of abdominal pain, nausea/vomiting. She underwent a CT a/p that confirmed a 4cm pancreatic head tumor without evidence of bowel obstruction. Likely she is failing outpatient therapy for cancer related pain. INR >10. She was admitted under the hospitalist service and given vitamin K and pain regimen adjusted. Patient was seen recently by [facility] surgery last week for evaluation of Mediport placement to start chemo early next month. She thinks her surgery is scheduled for either the or next week. She states she doesn't want to travel back to [place] if she is able to get the port her during this admission. Allergies Allergy/AdvReac Type Severity Reaction Status Date / Time latex Allergy Intermediate rash Verified 07/08/20 10:03 sulfamethoxazole Allergy Intermediate itching, Verified 07/08/20 10:03 chest tightness trimethoprim Allergy Intermediate itching, Verified 07/08/20 10:03 chest tightness adhesive Allergy Unknown ITCHY SKIN Verified 07/08/20 10:03 clindamycin AdvReac Severe Diarrhea Verified 07/08/20 10:03 doxycycline AdvReac Intermediate nausea and Verified 07/08/20 10:03 vomiting Home Medications Medication Instructions Recorded Confirmed Type multivitamin 1 tab PO QDD 10/26/18 07/08/20 History atorvastatin 40 mg tablet 40 mg PO DAILY #30 tab 06/20/19 07/08/20 Rx clonazepam 0.5 mg tablet 0.25 mg PO HS PRN tab 01/04/20 07/08/20 History galcanezumab-gnlm 120 mg/mL 120 mg SQ MONTHLY 30 Days #1 ml 01/04/20 07/08/20 Rx subcutaneous pen injector sumatriptan succinate 6 mg/0.5 mL 6 mg SUBCUT .COMPLEX PRN #1 ml 03/18/20 07/08/20 Rx subcutaneous pen injector gabapentin 800 mg tablet 800 mg PO TID #90 tab 04/10/20 07/08/20 Rx topiramate 100 mg capsule 100 mg PO DAILY 90 Days #90 ea 04/10/20 07/08/20 Rx sprinkle,extended release 24 hr buspirone 30 mg PO HS 04/16/20 07/08/20 History chlorpromazine 10 mg PO HS 04/16/20 07/08/20 History promethazine 25 mg tablet 25 mg PO BID PRN #60 tab 04/25/20 07/08/20 Rx tizanidine 4 mg tablet 4 mg PO QID PRN #90 tab 05/01/20 07/08/20 Rx docusate sodium 100 mg PO BID #20 cap 05/15/20 07/08/20 Rx pantoprazole 40 mg PO QAM 30 Days #30 tab 05/15/20 07/08/20 Rx venlafaxine 75 mg capsule,extended 37.5 mg PO QAM cap 05/22/20 07/08/20 History release 24 hr ferrous sulfate 325 mg (65 mg 325 mg PO BID #60 tab 05/23/20 07/08/20 Rx iron) tablet,delayed release acetaminophen [Tylenol Extra 1,000 mg PO DIRECTED PRN 06/12/20 07/08/20 History Strength] diphenhydramine HCl [Benadryl] 25 mg PO Q6H PRN 06/12/20 07/08/20 History warfarin 5 mg tablet See Rx Instructions PO UD tab 06/21/20 07/08/20 History naloxone 4 mg/actuation nasal spray 4 mg INTRANASAL Q2M PRN #2 ea 06/24/20 07/08/20 Rx rizatriptan 10 mg tablet 10 mg PO .COMPLEX PRN 90 Days #27 06/24/20 07/08/20 Rx tab fentanyl 25 mcg/hr transdermal 1 patch TRANSDERMAL Q72H #5 ea 07/04/20 07/08/20 Rx patch ergocalciferol (vitamin D2) 50,000 unit PO FR 07/08/20 07/08/20 History [Vitamin D2] losartan 25 mg PO HS 07/08/20 07/08/20 History metformin 1,000 mg PO HS 07/08/20 07/08/20 History oxybutynin chloride 10 mg PO HS 07/08/20 07/08/20 History venlafaxine 75 mg PO QAM 07/08/20 07/08/20 History Patient History Medical History Acute pancreatitis Depression (09/09/12) Diabetes Headache History of uterine fibroid Hyperlipidemia Hypertension Hypokalemia Migraine (09/09/12) Nausea & vomiting Pancreatic duct stricture Pancreatitis, acute Panic attack (09/09/12) PMB (postmenopausal bleeding) Surgical History History 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 History of laparoscopic cholecystectomy S/P surgical removal of pilonidal cyst Family History Sister Endometrial cancer Arthritis Celiac disease Hypertension Diabetes Mother Hypertension Congestive heart failure (CHF) Kidney failure Heart disease Father Parkinson disease Myocardial infarction Graves disease Skin cancer Denies family history of Ovarian cancer Prostate cancer Breast cancer Colorectal cancer Social History Smoking Status: Former smoker Tobacco Type: Cigarettes Age Started Using Tobacco: 21; Age Quit Using Tobacco: 58; packs per day: 1; Years Smoked: 37; Cigarettes Per Day: 2; Smoking End Date: 06/02/20; Number of Years Since Quit: 1; Second Hand Exposure: No; Hx Alcohol Use: No Hx Substance Use: No Preferred Language: Arabic Communication Ability: Effective Visual Impairment: No Limitations Hearing Ability: Normal 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 Beliefs That Will Affect Care: None marital status: Current Living Situation: Family Current Living Situation Comment: sister current occupational status: disabled Other Information That Helps Us Care for You: No Feels Safe at Home: Yes Safety Concerns: Feels Safe At This Time Childhood Exposure to Second-Hand Smoke: No Dental Care, Regularly: No Physical Activity Frequency: Does not Exercise Seatbelt Use: always Sunscreen Use: Yes Assistive Devices: Glasses Review of Systems Constitutional: + chills; no fever Respiratory: no dyspnea Cardiovascular: no chest pain Gastrointestinal: + abdominal pain, + nausea and + vomiting Physical Exam Physical Exam: awake/alert Constitutional: no acute distress Respiratory: normal respiratory effort; no respiratory distress Skin: surgical scar to L chest and underneath breasts for excision of chest teratoma Results & Data ([facility]) Vital Signs (Past 12 Hours) Vital Signs Temp Pulse Resp BP Pulse Ox 07/09/20 07:44 37.2 C 95 H 16 137/[address] abd pelvis IV con only CLINICAL HISTORY: upper abd pain, vomiting, elevated INR PANCREATIC CARCINOMA. COMPARISON STUDY: June 12, 2020 TECHNIQUE: The patient was scanned in a dynamic helical fashion during intravenous administration of 93 cc of Optiray 320. A dose lowering technique was utilized adhering to the principles of ALARA. CT DOSE: 1024.48 mGycm FINDINGS: Lower chest: There is elevation left hemidiaphragm. There are left lower lobe and lingular atelectatic changes. There is a 4 mm right lower lobe pulmonary nodule abutting the diaphragmatic surface. Liver: There is 37 mm hypervascular mass within the right lobe the liver, likely representing a hemangioma. There is a stable indeterminate 11 mm hypodense lesion within the left hepatic lobe medially. There is an [id number] mm hypodense nodule within the inferior aspect of the right hepatic lobe. There is an indeterminate 13 mm hypodense lesion within the right hepatic lobe medially. Gallbladder: Not visualized presumed surgically absent Spleen: There is stable 33 mm hypodense splenic lesion. Pancreas: There is pancreatic ductal dilatation. There is a heterogeneous 4 cm pancreatic head mass. There is a loss of the normal fat plane between the pancreas and duodenum. Adrenal glands: Unremarkable. Kidneys: There is symmetric renal cortical enhancement. The kidneys are normal in size without hydronephrosis. Bowel: There are no transition zones indicate bowel obstruction. There is no evidence of acute diverticulitis. There is no evidence of acute appendicitis. Peritoneum: There is no intraperitoneal free air or abdominal ascites. Vasculature: The abdominal aorta is normal in course and caliber. There is hazy infiltration surrounding the superior mesenteric artery. Adenopathy: There are borderline enlarged peripancreatic lymph nodes Pelvic viscera: The bladder, and pelvic viscera are unremarkable. Skeletal structures: No destructive osseous lesions are seen. IMPRESSION: 1. 4 cm pancreatic head mass 2. 37 mm hypervascular mass in the right lobe of the liver consistent with a hemangioma 3. There are for additional hypodense indeterminate hepatic lesions. 4. No evidence of bowel obstruction. No evidence of free air 5. No evidence of acute appendicitis. No evidence of acute diverticulitis. ACT 112: Negative or not required by law. Electronically signed by: Miguel Angel James M.D. 07/08/2020 12:12 PM PG Care Time/CCT Total # of Minutes Spent Total Time Spent with Patient: Total time spent is greater than 50% in coordination of care (as documented) at patient's floor/unit and/or counseling patient: Coding Level of Care Code 92825 Inpt Consult Level 3 Diagnoses Pancreatic cancer C25.9 Pancreatic malignancy location: unspecified (1) Pancreatic cancer Pancreatic malignancy location: unspecified Qualified Code(s): C25.9 - Malignant neoplasm of pancreas, unspecified
[2020-07-09] MEDS ORDERED: POTASSIUM CHLORIDE CRTAB 20 MEQ TABCR PO ONE (10:00)
[2020-07-09] MEDS: INSULIN ASPART 100 UNITS/ML 3 ML PEN SC SCH ×4 (10:03→22:00)
--- NOTE | 2020-07-09 10:22 | Pharmacy Report ---
Pharmacy Glycemic Short Note 2 - Date of Service July 09, 2020 - Glycemic Short BSG Results (Last 24 hours): 07/08/20 07/08/20 07/09/20 17:09 20:33 07:41 Glucose 147 H POC Glucose 116 H 132 H 07/09/20 08:24 Glucose POC Glucose 121 H OUTPATIENT ANTIDIABETIC REGIMEN: * Metformin ER 1,000mg PO PM * A1c = 5.2% on 03/2020 * A1c = 6% on 07/09/20 ASSESSMENT: * 60yo T2DM female with adequate degree of outpatient control per recent A1cs. * Pt is maintained on oral antidiabetic agents as an outpatient * Oral agents are not recommended for inpatient use d/t drug interactions, changing PO intake, and difficulty titrating for acute hyper/hypoglycemia. ADA recommends re-initiating outpatient oral agents 1-2 days prior to discharge if/when appropriate if they were held on admission. * Since patient is ordered a diet and tolerating well will re-initiate metformin. Pt is having poor pain control so it may be beneficial to minimize insulin injections/BSG checks for comfort. * Will continue NovoLog per CF only once metformin is resumed. PLAN FOR INPATIENT GLYCEMIC CONTROL: * Resume metformin this evening with dinner * Basal insulin * N/A; not neeed since no BSGs above 140-180 mg/dl * Bolus insulin * NovoLog per scale ACHS or Q6hrs while NPO * Goal Range: Low 110 mg/dL - High 140 mg/dL * Correction Factor: 30 mg/dL/unit * Nutritional / Prandial insulin per carb ratio of 1 unit per 10 grams CHO consumed; will dc CHO ratio this evening when metformin resumed PLAN FOR DISCHARGE: * Resume metformin as A1c is in goal range for patient based on age/co- morbidities.
[2020-07-09] MEDS ORDERED: WARFARIN SOD 5 MG TAB PO SCH (16:00)
--- NOTE | 2020-07-09 16:08 | Palliative Care Consultation ---
Date of Consultation July 09, 2020 Assessment & Plan (1) Abdominal pain: with possible neuropathic component. She is on gabapentin. Continue fentanyl patch with prn opioids. Consider pain management consult to see if celiac plexus block would be indicated. Discussed with hospitalist. (2) Anorexia: She is concerned about her weight loss and nutrition. We discussed ways to maximize nutrition and calories with limited po intake. Discussed that this is to be expected with her diagnosis. (3) Pancreatic cancer: Recently diagnosed, starting treatment Pancreatic malignancy location: unspecified Qualified Code(s): C25.9 - Malignant neoplasm of pancreas, unspecified (4) Palliative care encounter: Yaquelin and I spoke at length about how she is handling her recent cancer diagnosis. She has not really had time to absorb this information. She is anxious to start treatment and concerned about how she will feel with treatment. She lived in [place] for more than 20 years and very much wants to go to [place] to see friends. She is anxious and tearful when talking about her fear of dying. She wonders what it would be like and worries about missing her family. She talks about a friend of hers who of lung cancer and what that was like for her. Her friend was on a ventilator for several days prior to her . She initially tells me that she would want full code and would be okay with vent support for seven days and then be extubated if not improved. When I asked her about what her expectations were about that and explained that she would be sedated and not able to interact with her family, she was less certain about this and told me that she needs to think about it. We talked about what things were most important for her to be able to do in her life and what things would not be tolerable for her care. She is going to consider this and talk wi th her sister, who she lives with. 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 She is agreeable to f/u with palliative care on an outpatient basis for support, symptom management and ongoing goals of care discussion. History of Present Illness Reason for Consultation: symptom management, goals of care Requesting Physician: Dr. Saavedra Attending Physician: Bryce Bond MD History of Present Illness 60 yo lady who was recently diagnosed with pancreatic cancer who was admitted with abdominal pain, nausea and vomiting. She has a 4 cm pancreatic mass with multiple liver lesions as well as a liver hemangioma. She has decreased appetite, nausea and vomiting with a significant weight loss in the last two months. She has also had pain across her upper abdomen that radiates to the sides. She describes this as a "jelly" feeling. She denies stabbing pain but does notice some burning. Pain is constant. She has had only partial relief with opioids and was started on a fentanyl patch as an outpatient on 07/05. She has been getting IV hydromorphone and po oxycodone over the last 18 hours with approximately 160mg OME in prn dosing in the last 18 hours. She has had problems with nausea and vomiting though she feels that is better today. She will be having port placement tomorrow in preparation for treatment with gemcitabine and abraxane. Allergies Allergy/AdvReac Type Severity Reaction Status Date / Time latex Allergy Intermediate rash Verified 07/08/20 10:03 sulfamethoxazole Allergy Intermediate itching, Verified 07/08/20 10:03 chest tightness trimethoprim Allergy Intermediate itching, Verified 07/08/20 10:03 chest tightness adhesive Allergy Unknown ITCHY SKIN Verified 07/08/20 10:03 clindamycin AdvReac Severe Diarrhea Verified 07/08/20 10:03 doxycycline AdvReac Intermediate nausea and Verified 07/08/20 10:03 vomiting Home Medications Medication Instructions Recorded Confirmed Type multivitamin 1 tab PO QDD 10/26/18 07/08/20 History atorvastatin 40 mg tablet 40 mg PO DAILY #30 tab 06/20/19 07/08/20 Rx clonazepam 0.5 mg tablet 0.25 mg PO HS PRN tab 01/04/20 07/08/20 History galcanezumab-gnlm 120 mg/mL 120 mg SQ MONTHLY 30 Days #1 ml 01/04/20 07/08/20 Rx subcutaneous pen injector sumatriptan succinate 6 mg/0.5 mL 6 mg SUBCUT .COMPLEX PRN #1 ml 03/18/20 07/08/20 Rx subcutaneous pen injector gabapentin 800 mg tablet 800 mg PO TID #90 tab 04/10/20 07/08/20 Rx topiramate 100 mg capsule 100 mg PO DAILY 90 Days #90 ea 04/10/20 07/08/20 Rx sprinkle,extended release 24 hr buspirone 30 mg PO HS 04/16/20 07/08/20 History chlorpromazine 10 mg PO HS 04/16/20 07/08/20 History promethazine 25 mg tablet 25 mg PO BID PRN #60 tab 04/25/20 07/08/20 Rx tizanidine 4 mg tablet 4 mg PO QID PRN #90 tab 05/01/20 07/08/20 Rx docusate sodium 100 mg PO BID #20 cap 05/15/20 07/08/20 Rx pantoprazole 40 mg PO QAM 30 Days #30 tab 05/15/20 07/08/20 Rx venlafaxine 75 mg capsule,extended 37.5 mg PO QAM cap 05/22/20 07/08/20 History release 24 hr ferrous sulfate 325 mg (65 mg 325 mg PO BID #60 tab 05/23/20 07/08/20 Rx iron) tablet,delayed release acetaminophen [Tylenol Extra 1,000 mg PO DIRECTED PRN 06/12/20 07/08/20 History Strength] diphenhydramine HCl [Benadryl] 25 mg PO Q6H PRN 06/12/20 07/08/20 History warfarin 5 mg tablet See Rx Instructions PO UD tab 06/21/20 07/08/20 History naloxone 4 mg/actuation nasal spray 4 mg INTRANASAL Q2M PRN #2 ea 06/24/20 07/08/20 Rx rizatriptan 10 mg tablet 10 mg PO .COMPLEX PRN 90 Days #27 06/24/20 07/08/20 Rx tab fentanyl 25 mcg/hr transdermal 1 patch TRANSDERMAL Q72H #5 ea 07/04/20 07/08/20 Rx patch ergocalciferol (vitamin D2) 50,000 unit PO FR 07/08/20 07/08/20 History [Vitamin D2] losartan 25 mg PO HS 07/08/20 07/08/20 History metformin 1,000 mg PO HS 07/08/20 07/08/20 History oxybutynin chloride 10 mg PO HS 07/08/20 07/08/20 History venlafaxine 75 mg PO QAM 07/08/20 07/08/20 History Patient History Medical History Acute pancreatitis Depression (05/24/13) Diabetes Headache History of uterine fibroid Hyperlipidemia Hypertension Hypokalemia Migraine (09/09/12) Nausea & vomiting Pancreatic duct stricture Pancreatitis, acute Panic attack (09/09/12) PMB (postmenopausal bleeding) Surgical History History 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 History of laparoscopic cholecystectomy S/P surgical removal of pilonidal cyst Family History Sister Endometrial cancer Arthritis Celiac disease Hypertension Diabetes Mother Hypertension Congestive heart failure (CHF) Kidney failure Heart disease Father Parkinson disease Myocardial infarction Graves disease Skin cancer Denies family history of Ovarian cancer Prostate cancer Breast cancer Colorectal cancer Social History Smoking Status: Former smoker Tobacco Type: Cigarettes Age Started Using Tobacco: 21; Age Quit Using Tobacco: 58; packs per day: 1; Years Smoked: 37; Cigarettes Per Day: 2; Smoking End Date: 06/02/20; Number of Years Since Quit: 1; Second Hand Exposure: No; Hx Alcohol Use: No Hx Substance Use: No Preferred Language: Korean Communication Ability: Effective Visual Impairment: No Limitations Hearing Ability: Normal 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 Beliefs That Will Affect Care: None marital status: Current Living Situation: Family Current Living Situation Comment: sister current occupational status: disabled Other Information That Helps Us Care for You: No Feels Safe at Home: Yes Safety Concerns: Feels Safe At This Time Childhood Exposure to Second-Hand Smoke: No Dental Care, Regularly: No Physical Activity Frequency: Does not Exercise Seatbelt Use: always Sunscreen Use: Yes Assistive Devices: Glasses Review of Systems Review of Systems: [place] Symptom Assessment Scale Pain 2/3 Dyspnea 0/3 Nausea 0/3 Anxiety 2/3 Fatigue 1/3 Anorexia 2/3 Drowsiness 0/3 Palliative Performance Score 60% Physical Exam Constitutional: no acute distress Respiratory: normal respiratory effort; no labored breathing Cardiovascular: Extremities: no edema Gastrointestinal (Abdomen): epigastric tenderness to palpation Musculoskeletal: Extremities: extremities normal to inspection and strength 5/ 5 throughout Skin: warm and dry Neurologic: awake; no focal motor deficits and not confused Psychiatric: Affect: + anxious affect Results & Data ([facility]) Vital Signs (Past 12 Hours) Vital Signs Temp Pulse Resp BP Pulse Ox 07/09/20 07:44 99.0 F 95 H 16 137/85 95 PG Care Time/CCT Total # of Minutes Spent Total Time Spent with Patient: Total time spent is greater than 50% in coordination of care (as documented) at patient's floor/unit and/or counseling patient: total time spent 80 minutes with more than 50% of time spent on symptom management, code status, goals of care. Coding Level of Care Code 08526 Inpt Consult Level 4 Diagnoses Abdominal pain R10.9 Anorexia R63.0 Pancreatic cancer C25.9 Pancreatic malignancy location: unspecified Palliative care encounter Z51.5
[2020-07-09] MEDS ORDERED: GADOBUTROL 65ML VIAL IV ONE (16:17)
--- NOTE | 2020-07-09 16:48 | Magnetic Resonance Report ---
MR abdomen wo/w con HISTORY: pancreatic cancer, f/u 37 mm hypervascular mass R lobe TECHNIQUE: Multiplanar multisequence MRI of the abdomen was performed both before and after the intra venous administration of 8 cc of Gadavist contrast. COMPARISON STUDY: Abdomen and pelvis CT 07/08/2020. FINDINGS: There is a 3.4 cm lobular T2 hyperintense, T1 hypointense lesion within the posterior segme nt of the right hepatic lobe. This demonstrates discontinuous peripheral nodular enhancement with del ayed filling. Therefore, this is consistent with a hemangioma. There is a 1 cm T2 hyperintense, T1 hy pointense lesion within the left hepatic lobe which is not clearly demonstrate enhancement. Therefore , this favors a small cyst. There are 3 small foci measuring up to 6 mm within the right hepatic lobe medially. These suppress on the out of phase imaging and therefore are consistent with focal fat. No suspicious hepatic lesions to suggest metastatic disease. Stable 3.1 cm T2 hyperintense, T1 hypointe nse lesion within the spleen medially. This demonstrates internal enhancement. This is likely benign given the long-term stability. There is a subcentimeter right renal cyst. No hydronephrosis. The adre nal glands are unremarkable. There is a single mildly enlarged portacaval lymph node measuring 2.3 x 1.1 cm. This remains unchanged. No additional enlarged retroperitoneal lymph nodes. The main portal v ein is patent. The pancreatic tail is slightly atrophic. There is mild dilatation of the proximal to mid main pancreatic duct. This is secondary to the 4.3 x 3.1 cm necrotic pancreatic head mass. This m ass abuts but does not entirely encases the superior mesenteric artery. The superior mesenteric vein appears narrowed. No suspicious osseous lesions identified. There are poststernotomy changes. There i s chronic elevation of the left hemidiaphragm. IMPRESSION: 1. Hepatic lesions as described above which appear to represent a combination of a 3.4 cm hemangioma, a small cyst, and areas of focal fat. No suspicious hepatic lesions identified. 2. Stable 3.1 cm splenic lesion which is likely benign. 3. Redemonstration of the 4.3 x 3 x 1 cm necrotic pancreatic head mass. 4. No change in the mildly enlarged portacaval lymph node. ACT 112: Negative or not required by law. Electronically signed by: Joshua Jacobo M.D. 07/09/2020 4:47 PM
[2020-07-09] MEDS: metFORMIN HCL ER 500 MG TABCR PO SCH (17:05)
[2020-07-09] MEDS: MULTIVITAMIN TAB PO SCH (17:05)
[2020-07-09] MEDS: LOSARTAN POTASSIUM 25 MG TAB PO SCH (21:53)
[2020-07-09] MEDS: OXYBUTYNIN CHLORIDE XL 5 MG TABCR PO SCH (21:53)
[2020-07-09] MEDS: busPIRone 15 MG TAB PO SCH (21:53)
[2020-07-09] MEDS: clonazePAM 0.25 MG TAB PO PRN (21:56)
[2020-07-09] MEDS ORDERED: TOPIRAMATE 100 MG TAB PO ONE (22:28)
[2020-07-10] MEDS ORDERED: Nursing to Pharmacy Communication SCH ×2 (02:00→17:30)
[2020-07-10] MEDS: HYDROmorphone INJ 1 MG/ML SYRINGE IV PRN ×5 (03:28→20:36)
[2020-07-10 07:06] LABS: Hematocrit (blood only) 41.6 % (37-47); Hemoglobin 13.7 g/dL (12.0-16.0); Mean Corpuscular Hemoglobin 27.7 pg (25-34); Mean Corpuscular Hgb Conc 32.9 g/dL (32-36); Mean Platelet Volume 10.6 fL (7.4-10.4); Platelet Count 178 K/uL (130-400); RDW Coefficient of Variation 14.1 % (11.5-14.5); RDW Standard Deviation 43.1 fL (36.4-46.3); Red Blood Count 4.95 M/uL (4.2-5.4); White Blood Count 5.14 K/uL (4.8-10.8)
[2020-07-10] MEDS: INSULIN ASPART 100 UNITS/ML 3 ML PEN SC SCH ×4 (07:08→20:41)
[2020-07-10 07:17] LABS: Prothrombin Time 10.1 Seconds (9.0-12.0)
[2020-07-10 07:41] LABS: Albumin Level 3.8 gm/dl (3.4-5.0); BUN Creatinine Ratio 12.9 (10-20); Bilirubin Direct 0.1 mg/dl (0-0.2); Calcium 8.7 mg/dl (8.5-10.1); Creatinine Clr Calc Pharmacy 82.5 ml/min; Est GFR (African American) 93.5; Est GFR (Non-African American) 80.7; Potassium 3.5 mmol/L (3.5-5.1)
[2020-07-10 07:43] LABS: Bilirubin,Total 0.5 mg/dl (0.2-1); Total Protein 6.9 gm/dl (6.4-8.2)
--- NOTE | 2020-07-10 08:39 | Hospitalist Progress Note ---
Date of Service July 10, 2020 Assessment & Plan (1) Cancer associated pain: * Given Fentanyl patch over weekend from PCP but did not have PO alternatives for breakthrough d/t insurance * Utilizing oxycodone PO and morphine prn for control while inpatient. Continue bowel regimen for opiate related constipation -- passing gas but no BM today. Will resume bowel regimen when taking PO * Already on gabapentin 800mg TID * Will consult pain management about possible benefits from plexus injection to see if any added relief -- would like to avoid escalating dose/decreased frequency of morphine at this current time. Pain 8/10 but improved and tolerable compared to admission * --> Plan for celiac plexus injection tomorrow with Dr. Marie * --> Will feed after a-port this afternoon and then make NPO after midnight. Continue to hold anticoagulation * Palliative consulted as well to establish goals of care Discussed at length with sister last night --> MRI abd to look at liver lesions and showed no suspicious lesions at this time. 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 Haq -- to switch to lovenox at last appointment but that appointment was cancelled --> discussed with patient and will switch to Lovenox and she will have JOSSELIN administer at home. * --> Holding for now and utilizing SCDs given OR for tomorrow for a-port placement with Dr. Umanzor and then again for * May be beneficial discussed with [facility] hematology whether to reinstitute her treatment, labs repeating Doppler study of her celiac vessels will be undertaken --> message sent to Dr. Marshall on [employer] today to inform about inpatient stay * PPI increased to BID given +gastric occult with supratherapeutic INR. No further hematemesis. h/h stable (3) Pancreatic cancer: * [facility] oncology visit of 06/18/2020 shows FNA to be consistent with adenocarcinoma and pancreatic carcinoma is the working diagnosis. Lipase wnl * CT abdomen and pelvis 07/08/2020 IMPRESSION: * 1. 4 cm pancreatic head mass * 2. 37 mm hypervascular mass in the right lobe of the liver consistent with a hemangioma * 3. There are for additional hypodense indeterminate hepatic lesions. * 4. No evidence of bowel obstruction. No evidence of free air * 5. No evidence of acute appendicitis. No evidence of acute diverticulitis. * General surgery consulted for a-port placement -- appreciate assistance * NPO after * INR already reversed Messaged Dr. Marshall A-port placement today Repeating CA 19-9 --> prior levels 172 in May, 130s on repeat Was to begin chemo next month -- would want to get her in sooner if possible MRI abdomen pending for further eval of additional indeterminate hepatic lesions --> no additional suspicious lesions appreciated (4) Diabetes: Pharm consulted A1c 6 -- new from last admission secondary to pancreatic insufficiency in pt with pancreatic ca ISS while inpatient, holding metformin BSGs acceptable (5) Depression with anxiety: Continues BuSpar and Effexor Klonpin prn (6) Hypertension: chronic stable continue losartan 25mg (7) Hyperlipidemia: Atorvastatin will be held (8) Cervicogenic headache: Is on many medications for this we will continue her Topamax Neurontin tizanidine no headache reported today DVT Proph SCDS for now INR reversed as above, currently 1.0 but planned surgery this afternoon and celiac plexus infection tomorrow with Dr. Marie --> plans for Lovenox at discharge per discussion with Dr. Haq and patient Dispo: NPO after for celiac plexus block A-port to be placed this afternoon Admission and Anticipated Discharge Date Admission Date: July 08, 2020 Subjective Patient evaluated this morning. Pain still present but much improved from admission. Still "bowl of jello with radiation around below ribs and through her back", not as bad as yesterday. Reviewed MRI abd and lesions on liver do not appear to be suspicious for malignancy. Will plan to continue f/u with Dr. Marshall and planned [place] in future. Discussed I messaged Dr Marshall with findings. A-port to be placed this afternoon. Seen by pain management and they were going to discuss with MD about possible celiac plexus block --> upon review of note it appears they will plan for this tomorrow. Will continue to hold coumadin. (plans for transition to Lovenox) Review of Systems Review of Systems: All systems reviewed & are unremarkable except as noted in HPI & below Physical Exam Physical Exam: The patient appears chronically ill, labile emotions at times but improved outlook today after review of imaging and plan Head exam is normocephalic atraumatic no scleral icterus Neck is without JVD, thyromegaly, or carotid bruits. Lungs are clear to auscultation, no focal loss of breath sounds Cardiac exam: RRR, no m/r/g, no edema Abd: +BS, tender to palpation in epigastric region, no hepatosplenomegaly appreciated Skin: bruising to posterior left back, tender to palpation Ext: moves all extremities Neuro: no focal deficits Psych: AOx3, anxious affect at times Results & Data Results & Data ([facility]) Vital Signs (Past 12 Hours) Vital Signs Temp Pulse Resp BP BP Pulse Ox 07/10/20 07:56 36.8 C 81 18 122/81 95 07/09/20 22:41 36.6 C 90 20 138/83 96 Laboratory Results 07/10/20 07/10/20 07/10/20 Range/Units 06:38 06:38 06:38 WBC 5.14 (4.8-10.8) K/uL RBC 4.95 (4.2-5.4) M/uL Hgb 13.7 (12.0-16.0) g/dL Hct 41.6 (37-47) % MCV 84.0 (80-100) fL MCH 27.7 (25-34) pg MCHC 32.9 (32-36) g/dL RDW Std Deviation 43.1 (36.4-46.3) fL RDW Coeff of Natali 14.1 (11.5-14.5) % Plt Count 178 (130-400) K/uL MPV 10.6 H (7.4-10.4) fL PT 10.1 (9.0-12.0) Seconds INR 1.0 (0.9-1.1) Sodium 141 (136-145) mmol/L Potassium 3.5 (3.5-5.1) mmol/L Chloride 109 H (98-107) mmol/L Carbon Dioxide 27 (21-32) mmol/L Anion Gap 5.0 (3-11) BUN 10 (7-18) mg/dl Creatinine 0.80 (0.6-1.2) mg/dl Est Cr Clr Drug Dosing 82.5 ml/min Est GFR ( Amer) 93.5 Est GFR (Non-Af Amer) 80.7 BUN/Creatinine Ratio 12.9 (10-20) Glucose 104 H (70-99) mg/dl POC Glucose (70-99) mg/dl Estimat Average Glucose mg/dl Hemoglobin A1c (4.5-5.6) % Calcium 8.7 (8.5-10.1) mg/dl Magnesium (1.8-2.4) mg/dl Total Bilirubin 0.5 (0.2-1) mg/dl Direct Bilirubin 0.1 (0-0.2) mg/dl AST 12 L (15-37) U/L ALT 25 (12-78) U/L Alkaline Phosphatase 96 (45-117) U/L Total Protein 6.9 (6.4-8.2) gm/dl Albumin 3.8 (3.4-5.0) gm/dl CA 19-9 Antigen 07/10/20 07/09/20 07/09/20 Range/Units 06:08 20:54 17:27 WBC (4.8-10.8) K/uL RBC (4.2-5.4) M/uL Hgb (12.0-16.0) g/dL Hct (37-47) % MCV (80-100) fL MCH (25-34) pg MCHC (32-36) g/dL RDW Std Deviation (36.4-46.3) fL RDW Coeff of Natali (11.5-14.5) % Plt Count (130-400) K/uL MPV (7.4-10.4) fL PT (9.0-12.0) Seconds INR (0.9-1.1) Sodium (136-145) mmol/L Potassium (3.5-5.1) mmol/L Chloride (98-107) mmol/L Carbon Dioxide (21-32) mmol/L Anion Gap (3-11) BUN (7-18) mg/dl Creatinine (0.6-1.2) mg/dl Est Cr Clr Drug Dosing ml/min Est GFR ( Amer) Est GFR (Non-Af Amer) BUN/Creatinine Ratio (10-20) Glucose (70-99) mg/dl POC Glucose 107 H 108 H (70-99) mg/dl Estimat Average Glucose mg/dl Hemoglobin A1c (4.5-5.6) % Calcium (8.5-10.1) mg/dl Magnesium (1.8-2.4) mg/dl Total Bilirubin (0.2-1) mg/dl Direct Bilirubin (0-0.2) mg/dl AST (15-37) U/L ALT (12-78) U/L Alkaline Phosphatase (45-117) U/L Total Protein (6.4-8.2) gm/dl Albumin (3.4-5.0) gm/dl CA 19-9 Antigen Pending 07/09/20 07/09/20 07/09/20 Range/Units 17:21 11:52 08:24 WBC (4.8-10.8) K/uL RBC (4.2-5.4) M/uL Hgb (12.0-16.0) g/dL Hct (37-47) % MCV (80-100) fL MCH (25-34) pg MCHC (32-36) g/dL RDW Std Deviation (36.4-46.3) fL RDW Coeff of Natali (11.5-14.5) % Plt Count (130-400) K/uL MPV (7.4-10.4) fL PT (9.0-12.0) Seconds INR (0.9-1.1) Sodium (136-145) mmol/L Potassium (3.5-5.1) mmol/L Chloride (98-107) mmol/L Carbon Dioxide (21-32) mmol/L Anion Gap (3-11) BUN (7-18) mg/dl Creatinine (0.6-1.2) mg/dl Est Cr Clr Drug Dosing ml/min Est GFR ( Amer) Est GFR (Non-Af Amer) BUN/Creatinine Ratio (10-20) Glucose (70-99) mg/dl POC Glucose 121 H 129 H 121 H (70-99) mg/dl Estimat Average Glucose mg/dl Hemoglobin A1c (4.5-5.6) % Calcium (8.5-10.1) mg/dl Magnesium (1.8-2.4) mg/dl Total Bilirubin (0.2-1) mg/dl Direct Bilirubin (0-0.2) mg/dl AST (15-37) U/L ALT (12-78) U/L Alkaline Phosphatase (45-117) U/L Total Protein (6.4-8.2) gm/dl Albumin (3.4-5.0) gm/dl CA 19-9 Antigen 07/09/20 07/09/20 07/09/20 Range/Units 07:41 07:41 07:41 WBC (4.8-10.8) K/uL RBC (4.2-5.4) M/uL Hgb (12.0-16.0) g/dL Hct (37-47) % MCV (80-100) fL MCH (25-34) pg MCHC (32-36) g/dL RDW Std Deviation (36.4-46.3) fL RDW Coeff of Natali (11.5-14.5) % Plt Count (130-400) K/uL MPV (7.4-10.4) fL PT (9.0-12.0) Seconds INR (0.9-1.1) Sodium 138 (136-145) mmol/L Potassium 3.1 L (3.5-5.1) mmol/L Chloride 107 (98-107) mmol/L Carbon Dioxide 24 (21-32) mmol/L Anion Gap 7.0 (3-11) BUN 7 (7-18) mg/dl Creatinine 0.76 (0.6-1.2) mg/dl Est Cr Clr Drug Dosing 86.9 ml/min Est GFR ( Amer) 99.5 Est GFR (Non-Af Amer) 85.9 BUN/Creatinine Ratio 9.7 L (10-20) Glucose 147 H (70-99) mg/dl POC Glucose (70-99) mg/dl Estimat Average Glucose 126 mg/dl Hemoglobin A1c 6.0 H (4.5-5.6) % Calcium 8.8 (8.5-10.1) mg/dl Magnesium 1.9 (1.8-2.4) mg/dl Total Bilirubin (0.2-1) mg/dl Direct Bilirubin (0-0.2) mg/dl AST (15-37) U/L ALT (12-78) U/L Alkaline Phosphatase (45-117) U/L Total Protein (6.4-8.2) gm/dl Albumin (3.4-5.0) gm/dl CA 19-9 Antigen Diagnostic Findings MR abdomen wo/w con HISTORY: pancreatic cancer, f/u 37 mm hypervascular mass R lobe TECHNIQUE: Multiplanar multisequence MRI of the abdomen was performed both before and after the intravenous administration of 8 cc of Gadavist contrast. COMPARISON STUDY: Abdomen and pelvis CT 07/08/2020. FINDINGS: There is a 3.4 cm lobular T2 hyperintense, T1 hypointense lesion within the posterior segment of the right hepatic lobe. This demonstrates discontinuous peripheral nodular enhancement with delayed filling. Therefore, this is consistent with a hemangioma. There is a 1 cm T2 hyperintense, T1 hypointense lesion within the left hepatic lobe which is not clearly demonstrate enhancement. Therefore, this favors a small cyst. There are 3 small foci measuring up to 6 mm within the right hepatic lobe medially. These suppress on the out of phase imaging and therefore are consistent with focal fat. No suspicious hepatic lesions to suggest metastatic disease. Stable 3.1 cm T2 hyperintense, T1 hypointense lesion within the spleen medially. This demonstrates internal enhancement. This is likely benign given the long-term stability. There is a subcentimeter right renal cyst. No hydronephrosis. The adrenal glands are unremarkable. There is a single mildly enlarged portacaval lymph node measuring 2.3 x 1.1 cm. This remains unchanged. No additional enlarged retroperitoneal lymph nodes. The main portal vein is patent. The pancreatic tail is slightly atrophic. There is mild dilatation of the proximal to mid main pancreatic duct. This is secondary to the 4.3 x 3.1 cm necrotic pancreatic head mass. This mass abuts but does not entirely encases the superior mesenteric artery. The superior mesenteric vein appears narrowed. No suspicious osseous lesions identified. There are poststernotomy changes. There is chronic elevation of the left hemidiaphragm. IMPRESSION: 1. Hepatic lesions as described above which appear to represent a combination of a 3.4 cm hemangioma, a small cyst, and areas of focal fat. No suspicious hepatic lesions identified. 2. Stable 3.1 cm splenic lesion which is likely benign. 3. Redemonstration of the 4.3 x 3 x 1 cm necrotic pancreatic head mass. 4. No change in the mildly enlarged portacaval lymph node. PG Care Time/CCT Total # of Minutes Spent Total Time Spent with Patient: Total time spent is greater than 50% in coordination of care (as documented) at patient's floor/unit and/or counseling patient: Coding Level of Care Code 16997 Subseq Hosp Care Lvl 3 Diagnoses Cancer associated pain G89.3 Elevated international normalized ratio (INR) due to prior anticoagulant medication ingestion R79.1 Pancreatic cancer C25.9 Diabetes E11.9 Diabetes mellitus complication status: without complication Diabetes mellitus terminal operations manager insulin use: without terminal operations manager use Diabetes mellitus type: type 2 Depression with anxiety F41.8 Hypertension I10 Hypertension type: essential hypertension Hyperlipidemia E78.5 Hyperlipidemia type: unspecified Cervicogenic headache R51 (1) Diabetes Diabetes mellitus complication status: without complication Diabetes mellitus terminal operations manager insulin use: without terminal operations manager use Diabetes mellitus type: type 2 Qualified Code(s): E11.9 - Type 2 diabetes mellitus without complications (2) Hyperlipidemia Hyperlipidemia type: unspecified Qualified Code(s): E78.5 - Hyperlipidemia, unspecified (3) Hypertension Hypertension type: essential hypertension Qualified Code(s): I10 - Essential (primary) hypertension
[2020-07-10] MEDS: CHECK fentaNYL PATCH PLACEMENT SCH ×2 (08:48→15:50)
[2020-07-10] MEDS ORDERED: fentaNYL 25 MCG/HR TDSY TD SCH (09:00)
[2020-07-10] MEDS: TOPIRAMATE 100 MG TAB PO SCH (09:40)
[2020-07-10] MEDS: PANTOprazole 40 MG TAB PO SCH ×2 (09:41→20:27)
[2020-07-10] MEDS: VENLAFAXINE HCL XR 37.5 MG CAPXR PO SCH (09:41)
[2020-07-10] MEDS: GABAPENTIN 800 MG TAB PO SCH ×3 (09:41→20:26)
[2020-07-10] MEDS: VENLAFAXINE HCL XR 75 MG CAPXR PO SCH (09:41)
[2020-07-10] MEDS: ACETAMINOPHEN 500 MG TAB PO SCH ×3 (09:42→20:27)
--- NOTE | 2020-07-10 09:47 | Pain Management Consultation ---
Date of Consultation July 10, 2020 Assessment & Plan (1) Pancreatic cancer: Pancreatic malignancy location: unspecified Qualified Code(s): C25.9 - Malignant neoplasm of pancreas, unspecified (2) Mass of pancreas: (3) Abdominal pain: * We discussed celiac plexus block as a treatment for her intractable mid- epigastric abdominal pain relating to her pancreatic cancer. Risk versus benefits discussed. Patient wishes to proceed with the procedure. Will plan for the procedure with Dr. Marie tomorrow in the OR at 1315. * Palliative care for medical management with adjustment of fentanyl based on breakthrough medication use * NPO after midnight * Will discuss continued holding of coumadin with hospitalist service. History of Present Illness Reason for Consultation: Intractable mid-epigastric abdominal pain with history of pancreatic CA Requesting Physician: Maribel TIDWELL Attending Physician: Bryce Bond MD History of Present Illness Mrs. Trinh is a 60 year old white female who is known to pain service recently admitted secondary to intractable mid-epigastric abdominal pain traveling to thoracic spine region with recently diagnosed pancreatic cancer. Patient has new diagnosis of pancreatic CA May 2020. She has not started any primary treatment for the pancreatic cancer at this time. She is planned for A-port placement later today. Fentanyl transdermal was started at 25 mcg/72 hours last Wednesday on 07/05/20. Minimal benefit noted from fentanyl per the patient. Admitted with intractable pain, nausea and vomiting. Patient using IV hydromorphone and oxycodone upon this admission with minimal relief. Currently rating pain at a 8-9/10. Deep and boring characteristic in the mid-epigastric region travelling straight through to thoracic spine region. Palliative care involved and requested pain service evaluation for celiac plexus block. Diffic ulty sleeping due to the pain. Patient continues to be anxious as well relating to her diagnosis. Patient has been on coumadin and was recently supratherapeutic. Currently holding coumadin for upcoming a-port placement. Plan of care discussed with Dr. Nadia Ca. Pain Assessment Full Body Front + Back: 1. Mid-epigastric abdomen 2. Mid-lower thoracic region Pain scale - at its best (0-10): 8 Pain scale - at its worst (0-10): 10 Allergies Allergy/AdvReac Type Severity Reaction Status Date / Time latex Allergy Intermediate rash Verified 07/10/20 13:08 sulfamethoxazole Allergy Intermediate itching, Verified 07/10/20 13:08 chest tightness trimethoprim Allergy Intermediate itching, Verified 07/10/20 13:08 chest tightness adhesive Allergy Unknown ITCHY SKIN Verified 07/10/20 13:08 clindamycin AdvReac Severe Diarrhea Verified 07/10/20 13:08 doxycycline AdvReac Intermediate nausea and Verified 07/10/20 13:08 vomiting Home Medications Medication Instructions Recorded Confirmed Type multivitamin 1 tab PO QDD 10/26/18 07/08/20 History atorvastatin 40 mg tablet 40 mg PO DAILY #30 tab 06/20/19 07/08/20 Rx clonazepam 0.5 mg tablet 0.25 mg PO HS PRN tab 01/04/20 07/08/20 History galcanezumab-gnlm 120 mg/mL 120 mg SQ MONTHLY 30 Days #1 ml 01/04/20 07/08/20 Rx subcutaneous pen injector sumatriptan succinate 6 mg/0.5 mL 6 mg SUBCUT .COMPLEX PRN #1 ml 03/18/20 07/08/20 Rx subcutaneous pen injector gabapentin 800 mg tablet 800 mg PO TID #90 tab 04/10/20 07/08/20 Rx topiramate 100 mg capsule 100 mg PO DAILY 90 Days #90 ea 04/10/20 07/08/20 Rx sprinkle,extended release 24 hr buspirone 30 mg PO HS 04/16/20 07/08/20 History chlorpromazine 10 mg PO HS 04/16/20 07/08/20 History promethazine 25 mg tablet 25 mg PO BID PRN #60 tab 04/25/20 07/08/20 Rx tizanidine 4 mg tablet 4 mg PO QID PRN #90 tab 05/01/20 07/08/20 Rx docusate sodium 100 mg PO BID #20 cap 05/15/20 07/08/20 Rx pantoprazole 40 mg PO QAM 30 Days #30 tab 05/15/20 07/08/20 Rx venlafaxine 75 mg capsule,extended 37.5 mg PO QAM cap 05/22/20 07/08/20 History release 24 hr ferrous sulfate 325 mg (65 mg 325 mg PO BID #60 tab 05/23/20 07/08/20 Rx iron) tablet,delayed release acetaminophen [Tylenol Extra 1,000 mg PO DIRECTED PRN 02/24/21 03/22/21 History Strength] diphenhydramine HCl [Benadryl] 25 mg PO Q6H PRN 06/12/20 07/08/20 History warfarin 5 mg tablet See Rx Instructions PO UD tab 06/21/20 07/08/20 History naloxone 4 mg/actuation nasal spray 4 mg INTRANASAL Q2M PRN #2 ea 06/24/20 07/08/20 Rx rizatriptan 10 mg tablet 10 mg PO .COMPLEX PRN 90 Days #27 06/24/20 07/08/20 Rx tab fentanyl 25 mcg/hr transdermal 1 patch TRANSDERMAL Q72H #5 ea 07/04/20 07/08/20 Rx patch ergocalciferol (vitamin D2) 50,000 unit PO FR 07/08/20 07/08/20 History [Vitamin D2] losartan 25 mg PO HS 07/08/20 07/08/20 History metformin 1,000 mg PO HS 07/08/20 07/08/20 History oxybutynin chloride 10 mg PO HS 07/08/20 07/08/20 History venlafaxine 75 mg PO QAM 07/08/20 07/08/20 History Pain History Pain Intensity Pain scale - at its best (0-10): 8 Pain scale - at its worst (0-10): 10 Patient History Medical History (Updated 07/11/20 @ 15:47 by Rubin Cisneros MD) Abdominal pain Acute pancreatitis Depression (09/09/12) Diabetes Headache History of uterine fibroid Hyperlipidemia Hypertension Hypokalemia Migraine (09/09/12) Nausea & vomiting Pancreatic duct stricture Pancreatitis, acute Panic attack (09/09/12) PMB (postmenopausal bleeding) Surgical History (Updated 07/11/20 @ 09:28 by Janie Fernandez RN) 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 Umanzor 07/10/2020 S/P surgical removal of pilonidal cyst Family History Sister Endometrial cancer Arthritis Celiac disease Hypertension Diabetes Mother Hypertension Congestive heart failure (CHF) Kidney failure Heart disease Father Parkinson disease Myocardial infarction Graves disease Skin cancer Denies family history of Ovarian cancer Prostate cancer Breast cancer Colorectal cancer Social History Smoking Status: Former smoker Tobacco Type: Cigarettes Age Started Using Tobacco: 21; Age Quit Using Tobacco: 58; packs per day: 1; Years Smoked: 37; Cigarettes Per Day: 2; Number of Years Since Quit: 1; Second Hand Exposure: No; Hx Alcohol Use: No Hx Substance Use: No Preferred Language: [place] Communication Ability: Effective Visual Impairment: No Limitations Hearing Ability: Normal Tests Superintendent Required: No Beliefs That Will Affect Care: None marital status: Current Living Situation: Family Current Living Situation Comment: sister current occupational status: disabled Feels Safe at Home: Yes Childhood Exposure to Second-Hand Smoke: No Dental Care, Regularly: No Physical Activity Frequency: Does not Exercise Seatbelt Use: always Sunscreen Use: Yes Assistive Devices: None Physical Exam Physical Exam: General: Patient standing pacing upon entering the room. Patient appears anxious. Head: normocephalic and atraumatic Neck: FROM without limitation Chest: Non-tender to palpation over costosternal junction Abdomen: Tender to palpation in the mid-epigastric region to palpation. No organomegaly. No rebound or guarding. Back: Non-tender to palpation over the midline of thoracic region. Non-tender to percussion. Lower extremities: FROM. Non-tender to palpation. No edema. Neurologic: CN grossly intact. Ambulation normal. Results (Pain Clinic) Diagnostic Review MRI: non enhanced and reports reviewed MRI Findings: [facility], [id number] Magnetic Resonance Report Patient: GWENDOLYN TRINHAdmit Date: 07/08/20MR#: [id number]: [id number] [facility][id number]: [facility]: [facility] Zip: [place], [place] [address]Tig: 60Location: 3NSex: FRoom/Bed: [id number] Phy: Bryce Bond, MDDiagnosis: COAGULOPATHY, CANCER RELATED PAINPri Phy: Brent Dye, III, CRNPService Date: 07/09/20Fa Phy:Interpreting Phy: Joshua Jacobo [facility] Phy: Louis Saavedra MD Ordering Phy: Maribel Steinberg PA-C cc: ~ MR abdomen wo/w con HISTORY: pancreatic cancer, f/u 37 mm hypervascular mass R lobe TECHNIQUE: Multiplanar multisequence MRI of the abdomen was performed both before and after the intravenous administration of 8 cc of Gadavist contrast. COMPARISON STUDY: Abdomen and pelvis CT 07/08/2020. FINDINGS: There is a 3.4 cm lobular T2 hyperintense, T1 hypointense lesion within the posterior segment of the right hepatic lobe. This demonstrates discontinuous peripheral nodular enhancement with delayed filling. Therefore, this is consistent with a hemangioma. There is a 1 cm T2 hyperintense, T1 hypointense lesion within the left hepatic lobe which is not clearly demonstrate enhancement. Therefore, this favors a small cyst. There are 3 small foci measuring up to 6 mm within the right hepatic lobe medially. These suppress on the out of phase imaging and therefore are consistent with focal fat. No suspicious hepatic lesions to suggest metastatic disease. Stable 3.1 cm T2 hyperintense, T1 hypointense lesion within the spleen medially. This demonstrates internal enhancement. This is likely benign given the long-term stability. There is a subcentimeter right renal cyst. No hydronephrosis. The adrenal glands are unremarkable. There is a single mildly enlarged portacaval lymph node measuring 2.3 x 1.1 cm. This remains unchanged. No additional enlarged retroperitoneal lymph nodes. The main portal vein is patent. The pancreatic tail is slightly atrophic. There is mild dilatation of the proximal to mid main pancreatic duct. This is secondary to the 4.3 x 3.1 cm necrotic pancreatic head mass. This mass abuts but does not entirely encases the superior mesenteric artery. The superior mesenteric vein appears narrowed. No suspicious osseous lesions identified. There are poststernotomy changes. There is chronic elevation of the left hemidiaphragm. IMPRESSION: 1. Hepatic lesions as described above which appear to represent a combination of a 3.4 cm hemangioma, a small cyst, and areas of focal fat. No suspicious hepatic lesions identified. 2. Stable 3.1 cm splenic lesion which is likely benign. 3. Redemonstration of the 4.3 x 3 x 1 cm necrotic pancreatic head mass. 4. No change in the mildly enlarged portacaval lymph node. ACT 112: Negative or not required by law. Electronically signed by: Joshua Jacobo M.D. 07/09/2020 4:47 PM Dictated: 07/09/20 163Transcribed: 07/09/[address]: enhanced, non enhanced and reports reviewed CT Findings: [facility], [id number] CT Scan Report Patient: GWENDOLYN TRINHAdmit Date: 07/08/20MR#: [id number]: [id number] [facility] [facility][id number]: Date: 1960[facility] Zip: [place], [place] [address]Wni: 60Location: EDSex: FRoom/Bed:Att Phy:Diagnosis: ABD PAIN,BACK PAIN,VOMITING,06/13 DIAG W/PANC CANCEPri Phy: Brent Dye III, KENIANPService Date: 07/08/20Fam Phy:Interpreting Phy: Miguel Angel James MDAdmit Phy: Ordering Phy: Shanna Coughlin CRNP cc: ~ CT abd pelvis IV con only CLINICAL HISTORY: upper abd pain, vomiting, elevated INR PANCREATIC CARCINOMA. COMPARISON STUDY: June 12, 2020 TECHNIQUE: The patient was scanned in a dynamic helical fashion during intravenous administration of 93 cc of Optiray 320. A dose lowering technique was utilized adhering to the principles of ALARA. CT DOSE: 1024.48 mGycm FINDINGS: Lower chest: There is elevation left hemidiaphragm. There are left lower lobe and lingular atelectatic changes. There is a 4 mm right lower lobe pulmonary nodule abutting the diaphragmatic surface. Liver: There is 37 mm hypervascular mass within the right lobe the liver, likely representing a hemangioma. There is a stable indeterminate 11 mm hypodense lesion within the left hepatic lobe medially. There is an [id number] mm hypodense nodule within the inferior aspect of the right hepatic lobe. There is an indeterminate 13 mm hypodense lesion within the right hepatic lobe medially. Gallbladder: Not visualized presumed surgically absent Spleen: There is stable 33 mm hypodense splenic lesion. Pancreas: There is pancreatic ductal dilatation. There is a heterogeneous 4 cm pancreatic head mass. There is a loss of the normal fat plane between the pancreas and duodenum. Adrenal glands: Unremarkable. Kidneys: There is symmetric renal cortical enhancement. The kidneys are normal in size without hydronephrosis. Bowel: There are no transition zones indicate bowel obstruction. There is no evidence of acute diverticulitis. There is no evidence of acute appendicitis. Peritoneum: There is no intraperitoneal free air or abdominal ascites. Vasculature: The abdominal aorta is normal in course and caliber. There is hazy infiltration surrounding the superior mesenteric artery. Adenopathy: There are borderline enlarged peripancreatic lymph nodes Pelvic viscera: The bladder, and pelvic viscera are unremarkable. Skeletal structures: No destructive osseous lesions are seen. IMPRESSION: 1. 4 cm pancreatic head mass 2. 37 mm hypervascular mass in the right lobe of the liver consistent with a hemangioma 3. There are for additional hypodense indeterminate hepatic lesions. 4. No evidence of bowel obstruction. No evidence of free air 5. No evidence of acute appendicitis. No evidence of acute diverticulitis. ACT 112: Negative or not required by law. Electronically signed by: Miguel Angel James M.D. 07/08/2020 12:12 PM Dictated: 07/08/20 1155Transcribed: 07/08/20 1155
--- NOTE | 2020-07-10 12:49 | History & Physical Bridge Note ---
Date of Service July 10, 2020 History & Physical Bridge Note I have examined the patient, reviewed the History & Physical and in the interval since the performance of the History & Physical I have noted the following changes of clinical significance: no changes noted
[2020-07-10] MEDS ORDERED: LIDOCAINE HCL 2% 2 ML VIAL/AMP(20MG/ML) INFIL ONE (13:09)
[2020-07-10] MEDS ORDERED: PROPOFOL IV EMULSION 10 MG/ML 20 ML VIAL IV ONE (13:09)
[2020-07-10] MEDS ORDERED: MIDAZOLAM HCL 1 MG/ML 2ML VIAL ONE (13:09)
[2020-07-10] MEDS ORDERED: ONDANSETRON INJ 2 MG/ML 2 ML VIAL ONE (13:09)
[2020-07-10] MEDS ORDERED: fentaNYL citrate 100 MCG/2 ML VIAL ONE (13:09)
[2020-07-10] MEDS ORDERED: BUPIVACAINE/EPINEPHRINE 0.5% MPF 1:200,000 30 ML VIAL ONE (13:10)
[2020-07-10] MEDS ORDERED: HEPARIN (PORCINE) 1000 UNIT/ML 10 ML (CATH LAB USE ONLY) ONE (13:10)
--- NOTE | 2020-07-10 13:25 | Anesthesiology Consultation ---
Date of Service July 10, 2020 Assessment & Plan (1) Encounter for pre-operative examination: History Surgery Operation Date: 07/10/20 13:05 Proposed Procedures p Mediport Insertion - Robert Umanzor DO Operation Date: 07/11/20 13:00 Proposed Procedures p Ciliac Plexus Block - Mario Marie MD, FIPP Height/Weight Height: 5 ft 6 in Weight: 83.7 kg Allergies Allergy/AdvReac Type Severity Reaction Status Date / Time latex Allergy Intermediate rash Verified 07/10/20 13:08 sulfamethoxazole Allergy Intermediate itching, Verified 07/10/20 13:08 chest tightness trimethoprim Allergy Intermediate itching, Verified 07/10/20 13:08 chest tightness adhesive Allergy Unknown ITCHY SKIN Verified 07/10/20 13:08 clindamycin AdvReac Severe Diarrhea Verified 07/10/20 13:08 doxycycline AdvReac Intermediate nausea and Verified 07/10/20 13:08 vomiting Medications Home Medications Medication Instructions Recorded Confirmed Last Taken multivitamin 1 tab PO QDD 10/26/18 07/08/20 07/08/20 atorvastatin 40 mg tablet 40 mg PO DAILY #30 tab 06/20/19 07/08/20 07/08/20 clonazepam 0.5 mg tablet 0.25 mg PO HS PRN tab 01/04/20 07/08/20 07/07/20 galcanezumab-gnlm 120 mg/mL 120 mg SQ MONTHLY 30 Days #1 ml 01/04/20 07/08/20 07/01/20 subcutaneous pen injector sumatriptan succinate 6 mg/0.5 mL 6 mg SUBCUT .COMPLEX PRN #1 ml 03/18/20 07/08/20 Unknown subcutaneous pen injector gabapentin 800 mg tablet 800 mg PO TID #90 tab 04/10/20 07/08/20 07/08/20 topiramate 100 mg capsule 100 mg PO DAILY 90 Days #90 ea 04/10/20 07/08/20 07/08/20 sprinkle,extended release 24 hr buspirone 30 mg PO HS 04/16/20 07/08/20 07/07/20 chlorpromazine 10 mg PO HS 04/16/20 07/08/20 07/07/20 promethazine 25 mg tablet 25 mg PO BID PRN #60 tab 01/11/0607/08/20 07/08/20 tizanidine 4 mg tablet 4 mg PO QID PRN #90 tab 05/01/20 07/08/20 07/08/20 docusate sodium 100 mg PO BID #20 cap 05/15/20 07/08/20 07/08/20 pantoprazole 40 mg PO QAM 30 Days #30 tab 05/15/20 07/08/20 07/08/20 venlafaxine 75 mg capsule,extended 37.5 mg PO QAM cap 05/22/20 07/08/20 07/08/20 release 24 hr ferrous sulfate 325 mg (65 mg 325 mg PO BID #60 tab 05/23/20 07/08/20 07/08/20 iron) tablet,delayed release acetaminophen [Tylenol Extra 1,000 mg PO DIRECTED PRN 06/12/20 07/08/20 07/05/20 Strength] diphenhydramine HCl [Benadryl] 25 mg PO Q6H PRN 06/12/20 07/08/20 Unknown warfarin 5 mg tablet See Rx Instructions PO UD tab 06/21/20 07/08/20 07/07/20 naloxone 4 mg/actuation nasal spray 4 mg INTRANASAL Q2M PRN #2 ea 06/24/20 07/08/20 Unknown rizatriptan 10 mg tablet 10 mg PO .COMPLEX PRN 90 Days #27 06/24/20 07/08/20 U nknown tab fentanyl 25 mcg/hr transdermal 1 patch TRANSDERMAL Q72H #5 ea 07/04/20 07/08/20 07/07/20 patch ergocalciferol (vitamin D2) 50,000 unit PO FR 07/08/20 07/08/20 07/05/20 [Vitamin D2] losartan 25 mg PO HS 07/08/20 07/08/20 07/07/20 metformin 1,000 mg PO HS 07/08/20 07/08/20 07/07/20 oxybutynin chloride 10 mg PO HS 07/08/20 07/08/20 07/07/20 venlafaxine 75 mg PO QAM 07/08/20 07/08/20 07/08/20 Active Medications Generic Name Dose Route Start Last Admin Trade Name Freq PRN Reason Stop Dose Admin Acetaminophen 500 mg 07/08/20 21:00 07/10/20 09:42 Acetaminophen 500 Mg Tab PO 08/07/20 20:59 500 mg TID NEELA Administration Buspirone HCl 30 mg 07/08/20 21:00 07/09/20 21:53 Buspirone 15 Mg Tab PO 08/07/20 20:59 30 mg HS NEELA Administration Clonazepam 0.25 mg 07/08/20 16:40 07/09/20 21:56 Clonazepam 0.25 Mg Tab PO 08/07/20 16:39 0.25 mg HS PRN Administration Unknown Fentanyl 25 mcg 07/08/20 19:30 07/08/20 19:31 Fentanyl 25 Mcg/Hr Tdsy TD 07/22/20 19:29 25 mcg Q72H NEELA Administration Gabapentin 800 mg 07/08/20 21:00 07/10/20 09:41 Gabapentin 800 Mg Tab PO 08/07/20 20:59 800 mg TID NEELA Administration Hydromorphone HCl 1 mg 07/08/20 16:40 07/10/20 12:17 Hydromorphone Inj 1 Mg/Ml Syringe IV 07/22/20 16:39 1 mg Q4H PRN Administration Pain Insulin Aspart 0 units 07/10/20 06:00 07/10/20 12:43 Insulin Aspart 100 Units/Ml 3 Ml Pen SC 08/09/20 05:59 Not Given Q6 NEELA Losartan Potassium 25 mg 07/08/20 21:00 07/09/20 21:53 Losartan Potassium 25 Mg Tab PO 08/07/20 20:59 25 mg HS NEELA Administration Metformin HCl 1,000 mg 07/09/20 16:30 07/09/20 17:05 Metformin Hcl Er 500 Mg Tabcr PO 08/08/20 16:29 1,000 mg QDD NEELA Administration Miscellaneous 1 ea 07/08/20 16:40 07/10/20 08:48 Check Fentanyl Patch Placement N/A 08/07/20 16:39 1 ea QS NEELA Administration Multivitamins 1 tab 07/08/20 16:40 07/09/20 17:05 Multivitamin Tab PO 08/07/20 16:39 1 tab QDD NEELA Administration Ondansetron HCl 4 mg 07/08/20 19:40 07/08/20 19:52 Ondansetron Inj 2 Mg/Ml 2 Ml Vial IV 08/07/20 19:39 4 mg Q6H PRN Administration Nausea And Vomiting Oxybutynin Chloride 10 mg 07/08/20 21:00 07/09/20 21:53 Oxybutynin Chloride Xl 5 Mg Tabcr PO 08/07/20 20:59 10 mg HS NEELA Administration Oxycodone HCl 10 mg 07/08/20 16:40 07/09/20 21:56 Oxycodone Hcl Ir 5 Mg Tab (Immediate Release) PO 07/22/20 16:39 10 mg Q4H PRN Administration Moderate Pain Pantoprazole Sodium 40 mg 07/08/20 21:00 07/10/20 09:41 Pantoprazole 40 Mg Tab PO 08/07/20 20:59 40 mg BID NEELA Administration Sennosides 17.2 mg 07/08/20 16:40 07/09/20 07:56 Senna 8.6 Mg Tab PO 08/07/20 16:39 17.2 mg QAM NEELA Administration Topiramate 100 mg 07/10/20 09:00 07/10/20 09:40 Topiramate 100 Mg Tab PO 08/09/20 08:59 100 mg QAM NEELA Administration Venlafaxine HCl 75 mg 07/09/20 09:00 07/10/20 09:41 Venlafaxine Hcl Xr 75 Mg Capxr PO 08/08/20 08:59 75 mg QAM NEELA Administration Venlafaxine HCl 37.5 mg 07/09/20 09:00 07/10/20 09:41 Venlafaxine Hcl Xr 37.5 Mg Capxr PO 08/08/20 08:59 37.5 mg QAM NEELA Administration NPO Date Last Intake of Fluids: 07/09/20 Time Last Intake of Fluids: 22:00 Last Intake of Fluids Comment: sip of water with med at 1000 am today Date Last Intake of Solids: 07/09/20 Time Last Intake of Solids: 18:00 Past Medical History Medical History Abdominal pain Acute pancreatitis Depression (09/09/12) Diabetes Headache History of uterine fibroid Hyperlipidemia Hypertension Hypokalemia Migraine (09/09/12) Nausea & vomiting Pancreatic duct stricture Pancreatitis, acute Panic attack (09/09/12) PMB (postmenopausal bleeding) Past Family History Family History Sister Endometrial cancer Arthritis Celiac disease Hypertension Diabetes Mother Hypertension Congestive heart failure (CHF) Kidney failure Heart disease Father Parkinson disease Myocardial infarction Graves disease Skin cancer Denies family history of Ovarian cancer Prostate cancer Breast cancer Colorectal cancer Past Surgical History Surgical History History 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 History of laparoscopic cholecystectomy S/P surgical removal of pilonidal cyst Social History Smoking Status: Former smoker tobacco type: cigarettes Smoking cigarettes per day: 2 Smoking End Date: 06/02/20 Hx Alcohol Use: No Hx Substance Use: No substance use type: does not use Physical Exam Vital Signs Last Vital Signs Temp 37.2 C 07/10/20 13:05 Pulse 90 07/10/20 13:05 Resp 20 07/10/20 13:05 BP 144/88 H 07/10/20 13:05 Pulse Ox 96 07/10/20 13:05 Testing Laboratory Results 07/10/20 06:38 07/10/20 06:38 PT 10.1 Seconds (9.0-12.0) 07/10/20 06:38 INR 1.0 (0.9-1.1) 07/10/20 06:38 Hemoglobin A1c 6.0 % (4.5-5.6) H 07/09/20 07:41 Urine Color Yellow 07/08/20 10:45 Urine Appearance Clear (Clear) 07/08/20 10:45 Urine pH 8.0 (4.5-7.5) H 07/08/20 10:45 Ur Specific [place] 1.014 (1.000-1.030) 07/08/20 10:45 Urine Protein Negative (Negative) 07/08/20 10:45 Urine Glucose (UA) Negative (Negative) 07/08/20 10:45 Urine Ketones Negative (Negative) 07/08/20 10:45 Urine Nitrite Negative (Negative) 07/08/20 10:45 Ur Leukocyte Esterase Negative (Negative) 07/08/20 10:45 Urine WBC (Auto) 1-5 /hpf (0-5) 07/08/20 10:45 Urine RBC (Auto) 10-30 /hpf (0-4) H 07/08/20 10:45 U Hyaline Cast (Auto) 1-5 /lpf (0-5) 07/08/20 10:45 U Epithel Cells (Auto) 5-10 /lpf (0-5) H 07/08/20 10:45 Urine Bacteria (Auto) Negative (Negative) 07/08/20 10:45 07/10/20 07/10/20 12:09 06:08 POC Glucose 131 H 107 H
[2020-07-10] MEDS ORDERED: ePHEDrine sulfate 50 MG/ML AMP IV PRN (13:35)
[2020-07-10] MEDS ORDERED: fentaNYL citrate 100 MCG/2 ML VIAL IV PRN (13:35)
[2020-07-10] MEDS ORDERED: HYDROmorphone INJ 1 MG/ML SYRINGE IV PRN (13:35)
[2020-07-10] MEDS ORDERED: ATROPINE SULFATE 0.1 MG/ML 10ML SYR IV PRN (13:35)
[2020-07-10] MEDS ORDERED: GLYCOPYRROLATE 0.2 MG/ML VIAL ONE (14:16)
[2020-07-10] MEDS ORDERED: ROCURONIUM BROMIDE 10 MG/ML 5 ML VIAL IV ONE (14:16)
[2020-07-10] MEDS ORDERED: NEOSTIGMINE METHYLSULFATE 5 MG/5 ML SYR ONE (14:16)
[2020-07-10] MEDS ORDERED: SUCCINYLCHOLINE 100MG/5ML SYR IV ONE (14:16)
--- NOTE | 2020-07-10 14:34 | Operative Report ---
PG Post Operative Report Pre & Post Diagnosis Operation Date: 07/10/20 13:05 Pre-Op Diagnosis: Pancreatic Cancer Post-Op Diagnosis: Pancreatic Cancer Operation Date: 07/11/20 13:00 <No data on this case meets the specified criteria> I identified the patient and participated in the time-out.: Yes Procedure Operation Date: 07/10/20 13:05 Actual Procedures p Left Subclavian Mediport Insertion - Robert Umanzor DO Operation Date: 07/11/20 13:00 <No data on this case meets the specified criteria> Surgeon Robert Umanzor DO Winding Inspector And Tester n/a Estimated Blood Loss 5 Findings Consistent with Post-Op Diagnosis Specimens none Description of Procedure After informed consent was obtained the patient was taken the operating room placed in supine position. IV sedation was administered by anesthesia and titrated to effect. Both arms were then tucked. The upper chest area was sterilely prepped and draped in usual fashion. I used Marcaine with epinephrine to localize the skin just below the angle of the clavicle. I also used Marcaine to localize the periosteum of the clavicle. We then used a 15 blade scalpel to make a horizontal incision. I carried this down through the soft tissue using electrocautery to the pectoralis fascia. I then used blunt finger dissection to create a small pocket. I then used an 18-gauge finder needle to access the subclavian vein without difficulty. A guidewire was advanced under fluoroscopy into the superior vena cava. We then measured and cut the catheter to appropriate size and then thoroughly flushed the entire system with a heparin solution. Next we advanced a vascular dilator with peel-away sheath over the guidewire again using fluoroscopy. We then pulled out the dilator as well as the guidewire leaving the peel-away sheath in place. The catheter was advanced through the peel-away sheath and the port itself was placed into the housing pocket. We then peeled the sheath away leaving the catheter. We verified position using fluoroscopy. The catheter was then flushed with heparin solution. It withdrew dark venous blood easily. The port was then secured to the muscle using 0 Ethibond with 3 point fixation. The wound was thoroughly irrigated and closed in 2 layers using 3-0 Monocryl for both layers. A sterile dressing was applied. The patient was awakened and transferred to recovery in stable condition. A postoperative portable chest x-ray is currently pending to rule out pneumothorax and the verify catheter position. I attest to the content of the Intraoperative Record and any orders documented therein. Any exceptions are noted below. I attest to the content of the Intraoperative Record and any orders documented therein. Any exceptions are noted below.
--- NOTE | 2020-07-10 14:56 | XRay Report ---
XR chest 1V portable CLINICAL HISTORY: PACU, port placement COMPARISON STUDY: 04/25/2020 FINDINGS: There are postsurgical changes of midline sternotomy. The heart is the upper limits of norm al in size. There is elevation left hemidiaphragm. There are subsegmental left basilar atelectatic ch anges. There has been interval placement of a left-sided Mediport catheter. The tip projects over the superior vena cava. There is no pneumothorax.[ IMPRESSION: No evidence of pneumothorax status post placement of a left subclavian Mediport catheter ACT 112: Negative or not required by law. Electronically signed by: Miguel Angel James M.D. 07/10/2020 2:55 PM
--- NOTE | 2020-07-10 14:59 | Anesthesiology Progress Note ---
Date of Service July 10, 2020 Anesthesia Post Procedure Vital Signs Vital Signs: Temp Pulse Pulse Resp BP BP Pulse Ox 07/10/20 14:50 89 20 144/95 H 94 07/10/20 14:40 89 16 132/106 H 100 07/10/20 14:32 36.6 C 94 H 15 140/91 100 07/10/20 13:05 37.2 C 90 20 144/88 H 96 07/10/20 07:56 36.8 C 81 18 122/81 95 07/09/20 22:41 36.6 C 90 20 138/83 96 07/09/20 20:20 36.7 C 80 18 128/81 96 07/09/20 16:00 36.6 C 112 H 18 147/71 H 92 Pain Intensity Abdomen: Pain Intensity: 7 Back: Pain Intensity: 8 Transfer of Care Handoff Completed per policy Notes Mental Status: alert / awake / arousable and participated in evaluation Patient Amnestic to Procedure: Yes Nausea / Vomiting: adequately controlled Pain: adequately controlled Airway Patency, RR, SpO2: stable & adequate BP & HR: stable & adequate Hydration State: stable & adequate Anesthetic Complications: no major complications apparent and Pt Satisfied with anesthetic care Notes: The patient is status post mediport placement under general anesthesia. The surgeon requested general anesthesia to facilitate placement. The patient had biliary emesis immediately after LMA was inserted. The LMA was immediately removed and the patient's oropharynx was suctioned and the patient was intubated. I performed a fiberoptic bronchoscopy and did not see any evidence of aspiration. The patient's oxygen saturation remained stable throughout. The patient is currently in recovery with no complaints saturating 94% on room air. The TICO Steinberg was made aware as she is following the patient on the floor.
[2020-07-10] MEDS: oxyCODONE HCL IR 5 MG TAB (IMMEDIATE RELEASE) PO PRN ×2 (15:43→21:36)
[2020-07-10] MEDS: SODIUM CHLORIDE 0.9% 500 ML IV SCH ×2 (15:48→21:34)
[2020-07-10] MEDS: SENNA 8.6 MG TAB PO SCH (15:49)
[2020-07-10] MEDS ORDERED: WARFARIN SOD 7.5 MG TAB PO SCH (16:00)
[2020-07-10] MEDS: MULTIVITAMIN TAB PO SCH (16:38)
--- NOTE | 2020-07-10 17:12 | Anesthesiology Consultation ---
Date of Service July 10, 2020 Assessment & Plan (1) Encounter for pre-operative examination: Chart Review Chart Review: Acceptable Risk for Surgery and Patient NOT seen in Pre Admission Testing Consults Requested none History Surgery Operation Date: 07/10/20 13:05 Proposed Procedures p Mediport Insertion - Robert Umanzor DO Operation Date: 07/11/20 13:00 Proposed Procedures p Ciliac Plexus Block - Mario Marie MD, FIPP Height/Weight Height: 5 ft 6 in Weight: 83.7 kg Allergies Allergy/AdvReac Type Severity Reaction Status Date / Time latex Allergy Intermediate rash Verified 07/10/20 13:08 sulfamethoxazole Allergy Intermediate itching, Verified 07/10/20 13:08 chest tightness trimethoprim Allergy Intermediate itching, Verified 07/10/20 13:08 chest tightness adhesive Allergy Unknown ITCHY SKIN Verified 07/10/20 13:08 clindamycin AdvReac Severe Diarrhea Verified 07/10/20 13:08 doxycycline AdvReac Intermediate nausea and Verified 07/10/20 13:08 vomiting Medications Home Medications Medication Instructions Recorded Confirmed Last Taken multivitamin 1 tab PO QDD 10/26/18 07/08/20 07/08/20 atorvastatin 40 mg tablet 40 mg PO DAILY #30 tab 06/20/19 07/08/20 07/08/20 clonazepam 0.5 mg tablet 0.25 mg PO HS PRN tab 01/04/20 07/08/20 07/07/20 galcanezumab-gnlm 120 mg/mL 120 mg SQ MONTHLY 30 Days #1 ml 01/04/20 07/08/20 07/01/20 subcutaneous pen injector sumatriptan succinate 6 mg/0.5 mL 6 mg SUBCUT .COMPLEX PRN #1 ml 03/18/20 07/08/20 Unknown subcutaneous pen injector gabapentin 800 mg tablet 800 mg PO TID #90 tab 04/10/20 07/08/20 07/08/20 topiramate 100 mg capsule 100 mg PO DAILY 90 Days #90 ea 04/10/20 07/08/20 07/08/20 sprinkle,extended release 24 hr buspirone 30 mg PO HS 04/16/20 07/08/20 07/07/20 chlorpromazine 10 mg PO HS 04/16/20 07/08/20 07/07/20 promethazine 25 mg tablet 25 mg PO BID PRN #60 tab 04/25/20 07/08/20 07/08/20 tizanidine 4 mg tablet 4 mg PO QID PRN #90 tab 05/01/20 07/08/20 07/08/20 docusate sodium 100 mg PO BID #20 cap 05/15/20 07/08/20 07/08/20 pantoprazole 40 mg PO QAM 30 Days #30 tab 05/15/20 07/08/20 07/08/20 venlafaxine 75 mg capsule,extended 37.5 mg PO QAM cap 05/22/20 07/08/20 07/08/20 release 24 hr ferrous sulfate 325 mg (65 mg 325 mg PO BID #60 tab 05/23/20 07/08/20 07/08/20 iron) tablet,delayed release acetaminophen [Tylenol Extra 1,000 mg PO DIRECTED PRN 06/12/20 07/08/20 07/05/20 Strength] diphenhydramine HCl [Benadryl] 25 mg PO Q6H PRN 06/12/20 07/08/20 Unknown warfarin 5 mg tablet See Rx Instructions PO UD tab 06/21/20 07/08/20 07/07/20 naloxone 4 mg/actuation nasal spray 4 mg INTRANASAL Q2M PRN #2 ea 06/24/20 07/08/20 Unknown rizatriptan 10 mg tablet 10 mg PO .COMPLEX PRN 90 Days #27 06/24/20 07/08/20 Un known tab fentanyl 25 mcg/hr transdermal 1 patch TRANSDERMAL Q72H #5 ea 07/04/20 07/08/20 07/07/20 patch ergocalciferol (vitamin D2) 50,000 unit PO FR 07/08/20 07/08/20 07/05/20 [Vitamin D2] losartan 25 mg PO HS 07/08/20 07/08/20 07/07/20 metformin 1,000 mg PO HS 07/08/20 07/08/20 07/07/20 oxybutynin chloride 10 mg PO HS 07/08/20 07/08/20 07/07/20 venlafaxine 75 mg PO QAM 07/08/20 07/08/20 07/08/20 Active Medications Generic Name Dose Route Start Last Admin Trade Name Freq PRN Reason Stop Dose Admin Acetaminophen 500 mg 07/08/20 21:00 07/10/20 15:49 Acetaminophen 500 Mg Tab PO 08/07/20 20:59 500 mg TID NEELA Administration Buspirone HCl 30 mg 07/08/20 21:00 07/09/20 21:53 Buspirone 15 Mg Tab PO 08/07/20 20:59 30 mg HS NEELA Administration Clonazepam 0.25 mg 07/08/20 16:40 07/09/20 21:56 Clonazepam 0.25 Mg Tab PO 08/07/20 16:39 0.25 mg HS PRN Administration Unknown Fentanyl 25 mcg 07/08/20 19:30 07/08/20 19:31 Fentanyl 25 Mcg/Hr Tdsy TD 07/22/20 19:29 25 mcg Q72H NEELA Administration Gabapentin 800 mg 07/08/20 21:00 07/10/20 15:49 Gabapentin 800 Mg Tab PO 08/07/20 20:59 800 mg TID NEELA Administration Hydromorphone HCl 1 mg 07/08/20 16:40 07/10/20 16:38 Hydromorphone Inj 1 Mg/Ml Syringe IV 07/22/20 16:39 1 mg Q4H PRN Administration Pain Sodium Chloride 500 mls @ 80 mls/hr 07/10/20 13:45 07/10/20 15:48 Nss IV 07/10/20 19:59 80 mls/hr .Q6H15M NEELA Administration Insulin Aspart 0 units 07/10/20 06:00 07/10/20 12:43 Insulin Aspart 100 Units/Ml 3 Ml Pen SC 08/09/20 05:59 Not Given Q6 NEELA Losartan Potassium 25 mg 07/08/20 21:00 07/09/20 21:53 Losartan Potassium 25 Mg Tab PO 08/07/20 20:59 25 mg HS NEELA Administration Metformin HCl 1,000 mg 07/09/20 16:30 07/09/20 17:05 Metformin Hcl Er 500 Mg Tabcr PO 08/08/20 16:29 1,000 mg QDD NEELA Administration Miscellaneous 1 ea 07/08/20 16:40 07/10/20 15:50 Check Fentanyl Patch Placement N/A 08/07/20 16:39 1 ea QS NEELA Administration Multivitamins 1 tab 07/08/20 16:40 07/10/20 16:38 Multivitamin Tab PO 08/07/20 16:39 1 tab QDD NEELA Administration Ondansetron HCl 4 mg 07/08/20 19:40 07/08/20 19:52 Ondansetron Inj 2 Mg/Ml 2 Ml Vial IV 08/07/20 19:39 4 mg Q6H PRN Administration Nausea And Vomiting Oxybutynin Chloride 10 mg 07/08/20 21:00 07/09/20 21:53 Oxybutynin Chloride Xl 5 Mg Tabcr PO 08/07/20 20:59 10 mg HS NEELA Administration Oxycodone HCl 10 mg 07/08/20 16:40 07/10/20 15:43 Oxycodone Hcl Ir 5 Mg Tab (Immediate Release) PO 07/22/20 16:39 10 mg Q4H PRN Administration Moderate Pain Pantoprazole Sodium 40 mg 07/08/20 21:00 07/10/20 09:41 Pantoprazole 40 Mg Tab PO 08/07/20 20:59 40 mg BID NEELA Administration Sennosides 17.2 mg 07/08/20 16:40 07/10/20 15:49 Senna 8.6 Mg Tab PO 08/07/20 16:39 17.2 mg QAM NEELA Administration Topiramate 100 mg 07/10/20 09:00 07/10/20 09:40 Topiramate 100 Mg Tab PO 08/09/20 08:59 100 mg QAM NEELA Administration Venlafaxine HCl 75 mg 07/09/20 09:00 07/10/20 09:41 Venlafaxine Hcl Xr 75 Mg Capxr PO 08/08/20 08:59 75 mg QAM NEELA Administration Venlafaxine HCl 37.5 mg 07/09/20 09:00 07/10/20 09:41 Venlafaxine Hcl Xr 37.5 Mg Capxr PO 08/08/20 08:59 37.5 mg QAM NEELA Administration NPO Date Last Intake of Fluids: 07/09/20 Time Last Intake of Fluids: 22:00 Last Intake of Fluids Comment: sip of water with med at 1000 am today Date Last Intake of Solids: 07/09/20 Time Last Intake of Solids: 18:00 Past Medical History Medical History Abdominal pain Acute pancreatitis Depression (09/09/12) Diabetes Headache History of uterine fibroid Hyperlipidemia Hypertension Hypokalemia Migraine (09/09/12) Nausea & vomiting Pancreatic duct stricture Pancreatitis, acute Panic attack (09/09/12) PMB (postmenopausal bleeding) Past Family History Family History Sister Endometrial cancer Arthritis Celiac disease Hypertension Diabetes Mother Hypertension Congestive heart failure (CHF) Kidney failure Heart disease Father Parkinson disease Myocardial infarction Graves disease Skin cancer Denies family history of Ovarian cancer Prostate cancer Breast cancer Colorectal cancer Past Surgical History Surgical History History 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 History of laparoscopic cholecystectomy S/P surgical removal of pilonidal cyst Social History Smoking Status: Former smoker tobacco type: cigarettes Smoking cigarettes per day: 2 Smoking End Date: 06/02/20 Hx Alcohol Use: No Hx Substance Use: No substance use type: does not use Physical Exam Vital Signs Last Vital Signs Temp 36.9 C 07/10/20 16:44 Pulse 95 H 07/10/20 16:44 Resp 20 07/10/20 16:44 BP 138/88 07/10/20 16:44 Pulse Ox 92 07/10/20 16:44 Testing Laboratory Results 07/10/20 06:38 07/10/20 06:38 PT 10.1 Seconds (9.0-12.0) 07/10/20 06:38 INR 1.0 (0.9-1.1) 07/10/20 06:38 Hemoglobin A1c 6.0 % (4.5-5.6) H 07/09/20 07:41 Urine Color Yellow 07/08/20 10:45 Urine Appearance Clear (Clear) 07/08/20 10:45 Urine pH 8.0 (4.5-7.5) H 07/08/20 10:45 Ur Specific [place] 1.014 (1.000-1.030) 07/08/20 10:45 Urine Protein Negative (Negative) 07/08/20 10:45 Urine Glucose (UA) Negative (Negative) 07/08/20 10:45 Urine Ketones Negative (Negative) 07/08/20 10:45 Urine Nitrite Negative (Negative) 07/08/20 10:45 Ur Leukocyte Esterase Negative (Negative) 07/08/20 10:45 Urine WBC (Auto) 1-5 /hpf (0-5) 07/08/20 10:45 Urine RBC (Auto) 10-30 /hpf (0-4) H 07/08/20 10:45 U Hyaline Cast (Auto) 1-5 /lpf (0-5) 07/08/20 10:45 U Epithel Cells (Auto) 5-10 /lpf (0-5) H 07/08/20 10:45 Urine Bacteria (Auto) Negative (Negative) 07/08/20 10:45 07/10/20 07/10/20 07/10/20 16:48 12:09 06:08 POC Glucose 105 H 131 H 107 H
[2020-07-10] MEDS ORDERED: OPTIRAY 320 100ml IV ONE (20:08)
--- NOTE | 2020-07-10 20:24 | CT Scan Report ---
CT OF THE CHEST WITH IV CONTRAST CLINICAL HISTORY: Pancreatic carcinoma. Right lower lobe pulmonary nodule. COMPARISON STUDY: CT scan the abdomen and pelvis dated 07/08/2020 TECHNIQUE: Following the IV administration of 90 mL of Optiray-320, CT of the thorax was performed f rom the thoracic inlet to the lung bases. Images are reviewed in the axial, sagittal, and coronal ga remedios. IV contrast was administered without complication. A dose lowering technique was utilized adher ing to the principles of ALARA. CT DOSE: 473.75 mGy.cm FINDINGS: Thyroid: Imaged portions of the thyroid gland are normal in appearance. Thoracic aorta: The thoracic aorta is normal in course and caliber, noting standard 3-vessel arch jeremi reymundo. No aneurysm or dissection is seen. Pulmonary vasculature: The pulmonary trunk is normal in caliber. There are no central filling defects identified to suggest pulmonary embolus. Note that this examination was not protocoled for the evalu ation of pulmonary emboli. HEART: The heart is normal in size and configuration, without pericardial effusion. Lungs and pleural spaces: There is marked elevation/eventration left hemidiaphragm. There is a 5 mm r ight lower lobe pulmonary nodule abutting the diaphragmatic surface. Is a 5 mm right lower lobe pulmo nary nodule as visualized image #[id number]. There is a 7 mm right lower lobe pulmonary nodule as visual ized image #[id number]. There is a tangential 5 mm right lower lobe pulmonary nodule. Mediastinum: There is no evidence of pathologic mediastinal lymphadenopathy. Daisy: There is known to pathologic hilar lymphadenopathy. Axilla: There is no evidence of pathologic axillary lymphadenopathy. Upper abdomen: There is a stable 3 cm splenic hypodensity. There is a stable right hepatic lobe hypo density with nodular peripheral enhancement likely represent a hemangioma. The spleen is enlarged bashir suring 14 cm Skeletal structures: There are no lytic or blastic osseous lesions. IMPRESSION: 1. Marked elevation/eventration left hemidiaphragm 2. Nonspecific right lower lobe pulmonary nodules, the largest of which measures 7 mm. Given the hist ory of pancreatic carcinoma, a 3 month follow-up CT scan would seem prudent 3. Splenomegaly ACT 112: Negative or not required by law. Electronically signed by: Miguel Angel James M.D. 07/10/2020 8:23 PM
[2020-07-10] MEDS: OXYBUTYNIN CHLORIDE XL 5 MG TABCR PO SCH (20:26)
[2020-07-10] MEDS: LOSARTAN POTASSIUM 25 MG TAB PO SCH (20:26)
[2020-07-10] MEDS: busPIRone 15 MG TAB PO SCH (20:26)
[2020-07-10] MEDS: clonazePAM 0.25 MG TAB PO PRN (20:27)
[2020-07-11] MEDS: HYDROmorphone INJ 1 MG/ML SYRINGE IV PRN ×5 (00:27→19:29)
[2020-07-11] MEDS: CHECK fentaNYL PATCH PLACEMENT SCH ×3 (00:29→17:08)
[2020-07-11] MEDS: oxyCODONE HCL IR 5 MG TAB (IMMEDIATE RELEASE) PO PRN ×2 (03:06→09:17)
[2020-07-11] MEDS: SODIUM CHLORIDE 0.9% 500 ML IV SCH (03:14)
[2020-07-11] MEDS: INSULIN ASPART 100 UNITS/ML 3 ML PEN SC SCH ×4 (08:08→21:29)
--- NOTE | 2020-07-11 08:14 | Pulmonary Consultation ---
Date of Consultation July 11, 2020 Assessment & Plan (1) Multiple pulmonary nodules: --CT chest 07/10/2020 personally reviewed: Elevated left hemidiaphragm, multiple pulmonary nodules are appreciated in the right lower lobe. No mediastinal lymphadenopathy. The confluence of nodules in the right lower lobe where not present on CAT scan abdomen pelvis done 07/08/2020. The only nodule which was present was a subdiaphragmatic which is approximately 7 mm. It is indeterminate. --Multiple pulmonary nodules The confluence of nodules likely represent an infectious etiology especially given that they were not present 2 days prior to the CAT scan on 07/10/2020 The subdiaphragmatic on the right lower lobe nodule was present even before and that is indeterminate. --Active smoker Greater than 18-[id number] smoking history As per the patient she quit June 02 Encouraged to be abstinent from smoking PFTs as an outpatient would be helpful. --Elevated left hemidiaphragm Likely from the teratoma surgery which she had back in Plan: Treat the nodules currently as if they are infectious with antibiotics for [address] chest in 3 months to follow-up on the subdiaphragmatic nodule. It is hard to rule out if the subdiaphragmatic nodule is scarring or is it a metastatic lesion. I do not see any mediastinal lymphadenopathy pathologic on the CT chest. Case was discussed with Maribel Steinberg. No further recommendations from pulmonary perspective. Call with any questions. Please note the above document was generated using voice recognition software. It may contain grammatical, syntax or spelling errors.Any formal questions or concerns about the content, text or information contained within the body of this dictation should be directly addressed to the provider for clarification. (2) Pancreatic cancer: Pancreatic malignancy location: unspecified Qualified Code(s): C25.9 - Malignant neoplasm of pancreas, unspecified (3) Elevated hemidiaphragm: History of Present Illness Attending Physician: Bryce Bond MD History of Present Illness 60-year-old female with past medical history of anxiety and newly d iagnosed pancreatic cancer adenocarcinoma. Was admitted to the hospital because of severe abdominal pain nausea and vomiting. Patient also had a CT chest done which showed pulmonary nodules. Pulmonary consulted for above. At the time of examination patient just came back from the OR after having a port placed in the left side. She denies any nausea or vomiting. Denies any chest pain, no shortness of breath. She did complain of cough prior to coming to the hospital and subjective chills. No fever. No hemoptysis No headache, no dizziness, no blurry vision No dysuria, no diarrhea. Social history: Greater than [id number] smoking history, quit June 02 as per the patient, denies any illicit drug use, social alcohol. Has cats at home. Allergies Allergy/AdvReac Type Severity Reaction Status Date / Time latex Allergy Intermediate rash Verified 07/10/20 13:08 sulfamethoxazole Allergy Intermediate itching, Verified 07/10/20 13:08 chest tightness trimethoprim Allergy Intermediate itching, Verified 07/10/20 13:08 chest tightness adhesive Allergy Unknown ITCHY SKIN Verified 07/10/20 13:08 clindamycin AdvReac Severe Diarrhea Verified 07/10/20 13:08 doxycycline AdvReac Intermediate nausea and Verified 07/10/20 13:08 vomiting Home Medications Medication Instructions Recorded Confirmed Type multivitamin 1 tab PO QDD 10/26/18 07/08/20 History atorvastatin 40 mg tablet 40 mg PO DAILY #30 tab 06/20/19 07/08/20 Rx clonazepam 0.5 mg tablet 0.25 mg PO HS PRN tab 01/04/20 07/08/20 History galcanezumab-gnlm 120 mg/mL 120 mg SQ MONTHLY 30 Days #1 ml 01/04/20 07/08/20 Rx subcutaneous pen injector sumatriptan succinate 6 mg/0.5 mL 6 mg SUBCUT .COMPLEX PRN #1 ml 03/18/20 07/08/20 Rx subcutaneous pen injector gabapentin 800 mg tablet 800 mg PO TID #90 tab 04/10/20 07/08/20 Rx topiramate 100 mg capsule 100 mg PO DAILY 90 Days #90 ea 04/10/20 07/08/20 Rx sprinkle,extended release 24 hr buspirone 30 mg PO HS 04/16/20 07/08/20 History chlorpromazine 10 mg PO HS 04/16/20 07/08/20 History promethazine 25 mg tablet 25 mg PO BID PRN #60 tab 04/25/20 07/08/20 Rx tizanidine 4 mg tablet 4 mg PO QID PRN #90 tab 05/01/20 07/08/20 Rx docusate sodium 100 mg PO BID #20 cap 05/15/20 07/08/20 Rx pantoprazole 40 mg PO QAM 30 Days #30 tab 05/15/20 07/08/20 Rx venlafaxine 75 mg capsule,extended 37.5 mg PO QAM cap 05/22/20 07/08/20 History release 24 hr ferrous sulfate 325 mg (65 mg 325 mg PO BID #60 tab 05/23/20 07/08/20 Rx iron) tablet,delayed release acetaminophen [Tylenol Extra 1,000 mg PO DIRECTED PRN 06/12/20 07/08/20 History Strength] diphenhydramine HCl [Benadryl] 25 mg PO Q6H PRN 06/12/20 07/08/20 History warfarin 5 mg tablet See Rx Instructions PO UD tab 06/21/20 07/08/20 History naloxone 4 mg/actuation nasal spray 4 mg INTRANASAL Q2M PRN #2 ea 06/24/20 07/08/20 Rx rizatriptan 10 mg tablet 10 mg PO .COMPLEX PRN 90 Days #27 06/24/20 07/08/20 Rx tab fentanyl 25 mcg/hr transdermal 1 patch TRANSDERMAL Q72H #5 ea 07/04/20 07/08/20 Rx patch ergocalciferol (vitamin D2) 50,000 unit PO FR 07/08/20 07/08/20 History [Vitamin D2] losartan 25 mg PO HS 07/08/20 07/08/20 History metformin 1,000 mg PO HS 07/08/20 07/08/20 History oxybutynin chloride 10 mg PO HS 07/08/20 07/08/20 History venlafaxine 75 mg PO QAM 07/08/20 07/08/20 History Patient History Medical History (Updated 07/11/20 @ 15:47 by Rubin Cisneros MD) Abdominal pain Acute pancreatitis Depression (09/09/12) Diabetes Headache History of uterine fibroid Hyperlipidemia Hypertension Hypokalemia Migraine (09/09/12) Nausea & vomiting Pancreatic duct stricture Pancreatitis, acute Panic attack (09/09/12) PMB (postmenopausal bleeding) Surgical History (Updated 07/11/20 @ 09:28 by Janie Fernandez RN) 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 Umanzor 07/10/2020 S/P surgical removal of pilonidal cyst Family History Sister Endometrial cancer Arthritis Celiac disease Hypertension Diabetes Mother Hypertension Congestive heart failure (CHF) Kidney failure Heart disease Father Parkinson disease Myocardial infarction Graves disease Skin cancer Denies family history of Ovarian cancer Prostate cancer Breast cancer Colorectal cancer Social History Smoking Status: Former smoker Tobacco Type: Cigarettes Age Started Using Tobacco: 21; Age Quit Using Tobacco: 58; packs per day: 1; Years Smoked: 37; Cigarettes Per Day: 2; Smoking End Date: 06/02/20; Number of Years Since Quit: 1; Second Hand Exposure: No; Hx Alcohol Use: No Hx Substance Use: No Preferred Language: Sami Communication Ability: Effective Visual Impairment: No Limitations Hearing Ability: Normal 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 Beliefs That Will Affect Care: None marital status: Current Living Situation: Family Current Living Situation Comment: sister current occupational status: disabled Other Information That Helps Us Care for You: No Feels Safe at Home: Yes Safety Concerns: Feels Safe At This Time Childhood Exposure to Second-Hand Smoke: No Dental Care, Regularly: No Physical Activity Frequency: Does not Exercise Seatbelt Use: always Sunscreen Use: Yes Assistive Devices: None Review of Systems Review of Systems: All systems reviewed & are unremarkable except as noted in HPI & below Physical Exam Physical Exam: Constitutional: No acute distress HEENT: EOMI, PERRLA Respiratory system: Decreased air entry on the left side posteriorly, no wheeze, no rhonchi, no crackles CVS: S1-S2 positive, no murmurs or gallops, left-sided port Abdomen: Soft, nontender, nondistended, positive bowel sounds x4 Extremities: +2 pulses bilaterally radialis/ dorsalis pedis, no cyanosis, no e pranav Neuro: Awake alert oriented x3 Psych: Normal mood and affect G/U: No Arriaza Skin: no rashes, warm and dry Lymphatic: no cervical or axillary lymphadenopathy Results & Data Results & Data ([facility]) Vital Signs (Past 12 Hours) Vital Signs Temp Pulse Resp BP Pulse Ox 07/11/20 05:56 36.9 C 81 16 125/75 96 07/11/20 03:00 36.7 C 85 16 138/89 95 07/10/20 22:00 37.0 C 85 16 115/70 96 07/11/20 07:46 07/11/20 07:46 PG Care Time/CCT Total # of Minutes Spent Total Time Spent with Patient: Total time spent is greater than 50% in coordi nation of care (as documented) at patient's floor/unit and/or counseling patient: Coding Level of Care Code 52143 Inpt Consult Level 4 Diagnoses Multiple pulmonary nodules R91.8 Pancreatic cancer C25.9 Pancreatic malignancy location: unspecified Elevated hemidiaphragm J98.6
[2020-07-11] MEDS: ACETAMINOPHEN 500 MG TAB PO SCH ×3 (08:20→19:34)
[2020-07-11] MEDS: VENLAFAXINE HCL XR 75 MG CAPXR PO SCH (08:20)
[2020-07-11] MEDS: VENLAFAXINE HCL XR 37.5 MG CAPXR PO SCH (08:21)
[2020-07-11] MEDS: TOPIRAMATE 100 MG TAB PO SCH (08:21)
[2020-07-11] MEDS: GABAPENTIN 800 MG TAB PO SCH ×3 (08:21→19:33)
[2020-07-11] MEDS: PANTOprazole 40 MG TAB PO SCH ×2 (08:21→19:33)
[2020-07-11] MEDS: SENNA 8.6 MG TAB PO SCH (08:23)
[2020-07-11 08:27] LABS: Prothrombin Time 10.1 Seconds (9.0-12.0)
--- NOTE | 2020-07-11 08:30 | Pharmacy Report ---
Pharmacy Glycemic Short Note 2 - Date of Service July 11, 2020 - Glycemic Short BSG Results (Last 24 hours): 07/10/20 07/10/20 07/10/20 12:09 16:48 20:40 POC Glucose 131 H 105 H 94 07/11/20 08:04 POC Glucose 111 H OUTPATIENT ANTIDIABETIC REGIMEN: * Metformin ER 1,000mg PO PM * A1c = 5.2% on 03/2020 * A1c = 6% on 07/09/20 ASSESSMENT: 07/11 * TH did not require any insulin yesterday * BSGs well controlled at 107, 131, 105, and 94 mg/dL * NPO today for celiac plexus block * Do not anticipate any changes to insulin regimen 07/09 * 60yo T2DM female with adequate degree of outpatient control per recent A1cs. * Pt is maintained on oral antidiabetic agents as an outpatient * Oral agents are not recommended for inpatient use d/t drug interactions, changing PO intake, and difficulty titrating for acute hyper/hypoglycemia. ADA recommends re-initiating outpatient oral agents 1-2 days prior to discharge if/when appropriate if they were held on admission. * Since patient is ordered a diet and tolerating well will re-initiate metformin. Pt is having poor pain control so it may be beneficial to minimize insulin injections/BSG checks for comfort. * Will continue NovoLog per CF only once metformin is resumed. PLAN FOR INPATIENT GLYCEMIC CONTROL: * Hold metformin at this time * Basal insulin * Hold * Bolus insulin * NovoLog per scale ACHS or Q6hrs while NPO * Goal Range: Low 110 mg/dL - High 140 mg/dL * Correction Factor: 30 mg/dL/unit * Hold carb ratio PLAN FOR DISCHARGE: * Resume metformin as A1c is in goal range for patient based on age/co- morbidities.
[2020-07-11 08:47] LABS: Alanine Aminotransferase 22 U/L (12-78); Albumin Level 3.6 gm/dl (3.4-5.0); Aspartate Aminotransferase 13 U/L (15-37); Bilirubin Direct < 0.1 mg/dl (0-0.2); Blood Urea Nitrogen 7 mg/dl (7-18); Calcium 8.6 mg/dl (8.5-10.1); Carbon Dioxide 25 mmol/L (21-32); Chloride 110 mmol/L (98-107); Creatinine Clr Calc Pharmacy 95.7 ml/min; Est GFR (African American) 110.4; Est GFR (Non-African American) 95.3; Glucose 111 mg/dl (70-99); Potassium 3.5 mmol/L (3.5-5.1); Sodium 140 mmol/L (136-145)
[2020-07-11 08:50] LABS: Alkaline Phosphatase 91 U/L (45-117); Bilirubin,Total 0.4 mg/dl (0.2-1); Total Protein 6.2 gm/dl (6.4-8.2)
--- NOTE | 2020-07-11 08:54 | Surgery Progress Note ---
Date of Service July 11, 2020 Assessment & Plan (1) Pancreatic cancer: POD#1 mediport insertion incision appears well, tegaderm overtop okay to use mediport as early as today or when needed we will sign off, please call with any questions/concerns can follow up with dr. siddiqui in clinic for wound check in 2 weeks Admission and Anticipated Discharge Date Admission Date: July 08, 2020 Subjective Patient seen and examined. Offers no complaints. Physical Exam Physical Exam: awake/alert Constitutional: no acute distress Skin: L mediport incision with tegaderm overtop. Results & Data ([facility]) Vital Signs (Past 12 Hours) Vital Signs Temp Pulse Resp BP Pulse Ox 07/11/20 05:56 36.9 C 81 16 125/75 96 07/11/20 03:00 36.7 C 85 16 138/89 95 07/10/20 22:00 37.0 C 85 16 115/70 96 PG Care Time/CCT Total # of Minutes Spent Total Time Spent with Patient: Total time spent is greater than 50% in coordination of care (as documented) at patient's floor/unit and/or counseling patient: Coding Level of Care Code None Diagnoses Pancreatic cancer C25.9 Pancreatic malignancy location: unspecified (1) Pancreatic cancer Pancreatic malignancy location: unspecified Qualified Code(s): C25.9 - Malignant neoplasm of pancreas, unspecified
--- NOTE | 2020-07-11 08:55 | Anesthesiology Progress Note ---
Date of Service July 11, 2020 Anesthesia Post Procedure Vital Signs Vital Signs: Temp Pulse Pulse Pulse Resp BP BP 07/11/20 05:56 36.9 C 81 16 125/75 07/11/20 03:00 36.7 C 85 16 138/89 07/10/20 22:00 37.0 C 85 16 115/70 07/10/20 18:42 36.7 C 108 H 22 125/77 07/10/20 17:24 37.1 C 108 H 20 122/81 07/10/20 16:44 36.9 C 95 H 20 138/88 07/10/20 16:01 36.9 C 83 22 132/85 07/10/20 15:31 36.6 C 83 18 149/89 H 07/10/20 15:10 36.5 C 83 14 134/95 07/10/20 15:00 82 12 153/91 H 07/10/20 14:50 89 20 144/95 H 07/10/20 14:40 89 16 132/106 H 07/10/20 14:32 36.6 C 94 H 15 140/91 07/10/20 13:05 37.2 C 90 20 144/88 H Pulse Ox 07/11/20 05:56 96 07/11/20 03:00 95 07/10/20 22:00 96 07/10/20 18:42 94 07/10/20 17:24 94 07/10/20 16:44 92 07/10/20 16:01 96 07/10/20 15:31 93 07/10/20 15:10 94 07/10/20 15:00 94 07/10/20 14:50 94 07/10/20 14:40 100 07/10/20 14:32 100 07/10/20 13:05 96 Pain Intensity Abdomen: Pain Intensity: 7 Back: Pain Intensity: 7 Notes Mental Status: alert / awake / arousable and participated in evaluation Patient Amnestic to Procedure: Yes Nausea / Vomiting: adequately controlled Pain: adequately controlled Airway Patency, RR, SpO2: stable & adequate BP & HR: stable & adequate Hydration State: stable & adequate Anesthetic Complications: no major complications apparent
--- NOTE | 2020-07-11 09:14 | Hospitalist Progress Note ---
Date of Service July 11, 2020 Assessment & Plan (1) Cancer associated pain: * Given Fentanyl patch over weekend from PCP but did not have PO alternatives for breakthrough d/t insurance * Utilizing oxycodone PO and morphine prn for control while inpatient. Continue bowel regimen for opiate related constipation -- passing gas but no BM today. Will resume bowel regimen when taking PO * Already on gabapentin 800mg TID * Will consult pain management about possible benefits from plexus injection to see if any added relief -- would like to avoid escalating dose/decreased frequency of morphine at this current time. Pain 11/26 but improved and tolerable compared to admission s/p a-port placement yesterday with Dr. Umanzor. Ok for use. --> Confirmed with [facility] heme/onc (follow with Dr. Marshall) that patient now with port and plans to begin chemo on 07/29, meds already approved. CA-19-9 back at 288, up from 172 Jun 13 2020. MRI abd without suspicious liver lesions NPO for celiac plxus injection today with Dr. Marie Continuing both IV and PO pain medications for now but hopeful to transition off IV once block occurs Palliative care following -- patient did question about medical marijauna as well CT Chest performed 07/10 -- nodule indeterminate reported however given discussion with pulmonary team (consulted) feels likely scarring but not 100% certainty obviously Could consider 1 month f/u vs 3 months as rec by radiology --> Other confluents felt to be infectious in nature and recommends course of Azithroymin --> ordered IV for today as NPO for procedure and will transition to PO tomorrow for 5 day course Afebrile, WBC wnl Continue to monitor labs in AM (2) Elevated international normalized ratio (INR) due to prior anticoagulant medication ingestion: * 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 Haq -- to switch to lovenox at last appointment but that appointment was cancelled --> discussed with patient and will switch to Lovenox and she will have JOSSELIN administer at home. * --> Holding for now and utilizing SCDs given OR x 2 as above * May be beneficial discussed with [facility] hematology whether to reinstitute her treatment, labs repeating Doppler study of her celiac vessels will be undertaken --> message sent to Dr. Marshall on [employer] today to inform about inpatient stay * PPI increased to BID given +gastric occult with supratherapeutic INR. No further hematemesis. h/h stable (3) Pancreatic cancer: * [facility] oncology visit of 06/18/2020 shows FNA to be consistent with adenocarcinoma and pancreatic carcinoma is the working diagnosis. Lipase wnl * CT abdomen and pelvis 07/08/2020 IMPRESSION: * 1. 4 cm pancreatic head mass * 2. 37 mm hypervascular mass in the right lobe of the liver consistent with a hemangioma * 3. There are for additional hypodense indeterminate hepatic lesions. * 4. No evidence of bowel obstruction. No evidence of free air * 5. No evidence of acute appendicitis. No evidence of acute diverticulitis. * General surgery consulted for a-port placement as above -- appreciate assistance * NPO continued for celiac plexus blcok with Dr. Marie today * [id number] 288 from 172 as above * --> TO begin CHemo 07/29 as above * INR already reversed -- will transition to Lovenox as discussed with coag clinic (4) Diabetes: Pharm consulted A1c 6 -- new from last admission secondary to pancreatic insufficiency in pt with pancreatic ca ISS while inpatient, holding metformin BSGs acceptable (5) Depression with anxiety: Continues BuSpar and Effexor Klonpin prn (6) Hypertension: chronic stable continue losartan 25mg (7) Hyperlipidemia: Atorvastatin will be held (8) Cervicogenic headache: Is on many medications for this we will continue her Topamax Neurontin tizanidine no headache reported today (hasn't had one for a while) DVT Proph SCDS for now INR reversed as above, currently 1.0 but planned celiac plexus injection with Dr. Marie --> plans for Lovenox at discharge per discussion with Dr. Haq and patient Dispo: continued inpatient stay hopeful for d/c in next 1-2 days Admission and Anticipated Discharge Date Admission Date: July 08, 2020 Subjective Patient evaluated this morning. Port placement yesterday -- spoke with provider at [facility] oncology and confirmed port placed and they have her scheduled to begin chemo on 07/29 already. Pulmonary reviewed films -- feels new areas from prior imaging and likely to be infectious. Patient states she did have some shortness of breath with yellow sputum but improved. Discussed azithromycin IV today and will complete PO course once taking PO after plexus block. He notes could also consider 1 month follow up imaging to re-eval the lower indeterminate finding however feels likely scarring. She did have area removed in her teens and this could also be from scarring. Not 100% guarantee not cancerous given her history but felt to be very unlikely cancerous. Recommending continuing with chemo and work-up to precede with Liipple. Pain still present, same description. Dilaudid helps for breakthrough pain but she does note the PO lasts longer/ Hopeful for improved pain control with block and will no longer need IV medication. Discussed medical marijuana and will need continued conversation with palliative and pain management. No fever, chills, chest pain (mild discomfort site of a-port), nausea or vomiting, shortness of breath. Did have some emesis following LMA yesterday for a-port so will be cautious for aspiration pneumonia however per anesthesia conversation lungs looks and sound good, never desat. Review of Systems Review of Systems: All systems reviewed & are unremarkable except as noted in HPI & below Physical Exam Physical Exam: The patient appears chronically ill, labile emotions at times but improved outlook today after review of imaging and plan and placement of port yesterday Head exam is normocephalic atraumatic no scleral icterus Neck is without JVD, thyromegaly, or carotid bruits Chest with aport to L chest, dressing c/d/i. some bruising/ecchymosis but no drainage noted Lungs are clear to auscultation, no focal loss of breath sounds, diminished BS Cardiac exam: RRR, no m/r/g, no edema Abd: +BS, tender to palpation in epigastric region (less today), no hepatosplenomegaly appreciated Skin: bruising to posterior left back, tender to palpation Ext: moves all extremities Neuro: no focal deficits Psych: AOx3, anxious affect at times Results & Data Results & Data ([facility]) Vital Signs (Past 12 Hours) Vital Signs Temp Pulse Resp BP Pulse Ox 07/11/20 05:56 36.9 C 81 16 125/75 96 07/11/20 03:00 36.7 C 85 16 138/89 95 07/10/20 22:00 37.0 C 85 16 115/70 96 Laboratory Results 07/11/20 07/11/20 07/11/20 Range/Units 08:04 07:46 07:46 PT 10.1 (9.0-12.0) Seconds INR 1.0 (0.9-1.1) Sodium 140 (136-145) mmol/L Potassium 3.5 (3.5-5.1) mmol/L Chloride 110 H (98-107) mmol/L Carbon Dioxide 25 (21-32) mmol/L Anion Gap 4.0 (3-11) BUN 7 (7-18) mg/dl Creatinine 0.69 (0.6-1.2) mg/dl Est Cr Clr Drug Dosing 95.7 ml/min Est GFR ( Amer) 110.4 Est GFR (Non-Af Amer) 95.3 BUN/Creatinine Ratio 10.0 (10-20) Glucose 111 H (70-99) mg/dl POC Glucose 111 H (70-99) mg/dl Calcium 8.6 (8.5-10.1) mg/dl Total Bilirubin 0.4 (0.2-1) mg/dl Direct Bilirubin < 0.1 (0-0.2) mg/dl AST 13 L (15-37) U/L ALT 22 (12-78) U/L Alkaline Phosphatase 91 (45-117) U/L Total Protein 6.2 L (6.4-8.2) gm/dl Albumin 3.6 (3.4-5.0) gm/dl CA 19-9 Antigen (<34) U/mL 07/10/20 07/10/20 07/10/20 Range/Units 20:40 16:48 12:09 PT (9.0-12.0) Seconds INR (0.9-1.1) Sodium (136-145) mmol/L Potassium (3.5-5.1) mmol/L Chloride (98-107) mmol/L Carbon Dioxide (21-32) mmol/L Anion Gap (3-11) BUN (7-18) mg/dl Creatinine (0.6-1.2) mg/dl Est Cr Clr Drug Dosing ml/min Est GFR ( Amer) Est GFR (Non-Af Amer) BUN/Creatinine Ratio (10-20) Glucose (70-99) mg/dl POC Glucose 94 105 H 131 H (70-99) mg/dl Calcium (8.5-10.1) mg/dl Total Bilirubin (0.2-1) mg/dl Direct Bilirubin (0-0.2) mg/dl AST (15-37) U/L ALT (12-78) U/L Alkaline Phosphatase (45-117) U/L Total Protein (6.4-8.2) gm/dl Albumin (3.4-5.0) gm/dl CA 19-9 Antigen (<34) U/mL 07/09/20 Range/Units 17:27 PT (9.0-12.0) Seconds INR (0.9-1.1) Sodium (136-145) mmol/L Potassium (3.5-5.1) mmol/L Chloride (98-107) mmol/L Carbon Dioxide (21-32) mmol/L Anion Gap (3-11) BUN (7-18) mg/dl Creatinine (0.6-1.2) mg/dl Est Cr Clr Drug Dosing ml/min Est GFR ( Amer) Est GFR (Non-Af Amer) BUN/Creatinine Ratio (10-20) Glucose (70-99) mg/dl POC Glucose (70-99) mg/dl Calcium (8.5-10.1) mg/dl Total Bilirubin (0.2-1) mg/dl Direct Bilirubin (0-0.2) mg/dl AST (15-37) U/L ALT (12-78) U/L Alkaline Phosphatase (45-117) U/L Total Protein (6.4-8.2) gm/dl Albumin (3.4-5.0) gm/dl CA 19-9 Antigen 288 H (<34) U/mL Diagnostic Findings CT OF THE CHEST WITH IV CONTRAST CLINICAL HISTORY: Pancreatic carcinoma. Right lower lobe pulmonary nodule. COMPARISON STUDY: CT scan the abdomen and pelvis dated 07/08/2020 TECHNIQUE: Following the IV administration of 90 mL of Optiray-320, CT of the thorax was performed from the thoracic inlet to the lung bases. Images are reviewed in the axial, sagittal, and coronal planes. IV contrast was administered without complication. A dose lowering technique was utilized adhering to the principles of ALARA. CT DOSE: 473.75 mGy.cm FINDINGS: Thyroid: Imaged portions of the thyroid gland are normal in appearance. Thoracic aorta: The thoracic aorta is normal in course and caliber, noting standard 3-vessel arch anatomy. No aneurysm or dissection is seen. Pulmonary vasculature: The pulmonary trunk is normal in caliber. There are no central filling defects identified to suggest pulmonary embolus. Note that this examination was not protocoled for the evaluation of pulmonary emboli. HEART: The heart is normal in size and configuration, without pericardial effusion. Lungs and pleural spaces: There is marked elevation/eventration left hemidiaphragm. There is a 5 mm right lower lobe pulmonary nodule abutting the diaphragmatic surface. Is a 5 mm right lower lobe pulmonary nodule as visualized image #[id number]. There is a 7 mm right lower lobe pulmonary nodule as visualized image #[id number]. There is a tangential 5 mm right lower lobe pulmonary nodule. Mediastinum: There is no evidence of pathologic mediastinal lymphadenopathy. Daisy: There is known to pathologic hilar lymphadenopathy. Axilla: There is no evidence of pathologic axillary lymphadenopathy. Upper abdomen: There is a stable 3 cm splenic hypodensity. There is a stable right hepatic lobe hypodensity with nodular peripheral enhancement likely represent a hemangioma. The spleen is enlarged measuring 14 cm Skeletal structures: There are no lytic or blastic osseous lesions. IMPRESSION: 1. Marked elevation/eventration left hemidiaphragm 2. Nonspecific right lower lobe pulmonary nodules, the largest of which measures 7 mm. Given the history of pancreatic carcinoma, a 3 month follow-up CT scan would seem prudent 3. Splenomegaly XR chest 1V portable CLINICAL HISTORY: PACU, port placement COMPARISON STUDY: 04/25/2020 FINDINGS: There are postsurgical changes of midline sternotomy. The heart is the upper limits of normal in size. There is elevation left hemidiaphragm. There are subsegmental left basilar atelectatic changes. There has been interval placement of a left-sided Mediport catheter. The tip projects over the superior vena cava. There is no pneumothorax.[ IMPRESSION: No evidence of pneumothorax status post placement of a left subclavian Mediport catheter PG Care Time/CCT Total # of Minutes Spent Total Time Spent with Patient: Total time spent is greater than 50% in coordination of care (as documented) at patient's floor/unit and/or counseling patient: Coding Level of Care Code 60285 Subseq Hosp Care Lvl 3 Diagnoses Cancer associated pain G89.3 Elevated international normalized ratio (INR) due to prior anticoagulant medication ingestion R79.1 Pancreatic cancer C25.9 Diabetes E11.9 Diabetes mellitus type: type 2 Diabetes mellitus shelter insulin use: without dye mixer use Diabetes mellitus complication status: without complication Depression with anxiety F41.8 Hypertension I10 Hypertension type: essential hypertension Hyperlipidemia E78.5 Hyperlipidemia type: unspecified Cervicogenic headache R51 (1) Diabetes Diabetes mellitus type: type 2 Diabetes mellitus shelter insulin use: without shelter use Diabetes mellitus complication status: without complication Qualified Code(s): E11.9 - Type 2 diabetes mellitus without complications (2) Hypertension Hypertension type: essential hypertension Qualified Code(s): I10 - Essential (primary) hypertension (3) Hyperlipidemia Hyperlipidemia type: unspecified Qualified Code(s): E78.5 - Hyperlipidemia, unspecified
[2020-07-11 09:40] LABS: Basophils # (auto) 0.01 K/uL (0-0.2); Basophils % (auto) 0.2 %; Eosinophils # (auto) 0.26 K/uL (0-0.5); Eosinophils % (auto) 4.7 %; Hematocrit (blood only) 38.3 % (37-47); Hemoglobin 12.8 g/dL (12.0-16.0); Immature Granulocytes # (auto) 0.01 K/uL (0.00-0.02); Immature Granulocytes % (auto) 0.2 %; Lymphocytes # (auto) 1.67 K/uL (1.2-3.4); Lymphocytes % (auto) 30.3 %; Mean Corpuscular Hemoglobin 28.1 pg (25-34); Mean Corpuscular Hgb Conc 33.4 g/dL (32-36); Monocytes # (auto) 0.44 K/uL (0.11-0.59); Neutrophils # (auto) 3.12 K/uL (1.4-6.5); Neutrophils % (auto) 56.6 %; Platelet Count 205 K/uL (130-400); RDW Coefficient of Variation 14.1 % (11.5-14.5); RDW Standard Deviation 43.5 fL (36.4-46.3); Red Blood Count 4.56 M/uL (4.2-5.4); White Blood Count 5.51 K/uL (4.8-10.8)
[2020-07-11] MEDS ORDERED: AZITHROMYCIN 500 MG in DEXTROSE 5% 250 ML IV ONE (10:00)
--- NOTE | 2020-07-11 12:06 | Palliative Care Progress Note ---
Date of Service July 11, 2020 Assessment & Plan (1) Abdominal pain: Related to pancreatic cancer with neuropathic pain. She will be having celiac plexus block today. Continue opioids and monitor. (2) Anorexia: We have discussed ways to maximize nutrition. She has been seen by a meat slicer with oncology. She asked about medical marijuana. I reviewed the process for certification and use of medical marijuana. She may have some benefit from this, particularly with neuropathic pain, unfortunately it is not covered by insurance and cost is out of pocket. We also discussed using marinol for her appetite. (3) Constipation: She tells me that a BM every ten days is normal for her. However, since starting opioids, BMs have been harder and more difficult to pass. She has order for miralax. We discussed using this regularly and titrating as needed. (4) Palliative care encounter: Yaquelin tells me that she feels a little better about things today and has been researching web sites for support and information. She is anxious to start her treatment. Palliative care will follow (5) Pancreatic cancer: Admission and Anticipated Discharge Date Admission Date: July 08, 2020 Subjective Had port placement yesterday. Has some soreness but generally feels better today. Continues to have 8/10 pain in her abdomen. IV hydromorphone briefly "takes the edge off" but does not significantly reduce her pain level. Review of Systems Review of Systems: [facility] Symptom Assessment Scale Pain 3/3 Nausea 0/3 Dyspnea 0/3 Anxiety 1/3 Anorexia 2/3 Constipation 2/3 Palliative Performance Score 60% Physical Exam Constitutional: + frail appearing; no acute distress ENMT: Mouth: + dry oral mucous membranes Respiratory: normal respiratory effort; no labored breathing Cardiovascular: Extremities: no edema Gastrointestinal (Abdomen): epigastric tenderness Musculoskeletal: Extremities: extremities normal to inspection and strength 5/5 throughout Neurologic: no focal motor deficits and not confused Psychiatric: A+Ox3, euthymic affect Results & Data ([facility]) Vital Signs (Past 12 Hours) Vital Signs Temp Pulse Resp BP BP Pulse Ox 07/11/20 10:54 98.1 F 92 H 16 121/78 94 07/11/20 05:56 98.4 F 81 16 125/75 96 07/11/20 03:00 98.1 F 85 16 138/89 95 PG Care Time/CCT Total # of Minutes Spent Total Time Spent with Patient: Total time spent is greater than 50% in coordination of care (as documented) at patient's floor/unit and/or counseling patient: Total time spent 40 minutes with more than 50% of time spent on symptom management, support, coordination of care. Coding Level of Care Code 65765 Subseq Hosp Care Lvl 3 Diagnoses Abdominal pain R10.9 Anorexia R63.0 Constipation K59.00 Palliative care encounter Z51.5 Pancreatic cancer C25.9
[2020-07-11] MEDS ORDERED: dexAMETHasone**PF** 10 MG/ML VIAL ONE (12:58)
[2020-07-11] MEDS ORDERED: BUPIVACAINE 0.5 % 5 MG/1 ML MPF 30ML VIAL ONE (12:58)
[2020-07-11] MEDS ORDERED: IOPAMIDOL INJ 61% 15 ML VIAL ONE (12:58)
[2020-07-11] MEDS ORDERED: LIDOCAINE HCL 2% (LOCAL) INJ 50 ML VIAL ONE (12:59)
[2020-07-11] MEDS ORDERED: MIDAZOLAM HCL 1 MG/ML 2ML VIAL ONE ×2 (13:20→13:40)
[2020-07-11] MEDS ORDERED: ATROPINE SULFATE 0.1 MG/ML 10ML SYR IV PRN (13:22)
[2020-07-11] MEDS ORDERED: ePHEDrine sulfate 50 MG/ML AMP IV PRN (13:22)
[2020-07-11] MEDS ORDERED: fentaNYL citrate 100 MCG/2 ML VIAL IV PRN (13:22)
--- NOTE | 2020-07-11 13:23 | History & Physical Bridge Note ---
Date of Service July 11, 2020 History & Physical Bridge Note Yaquelin Trinh is a 60-year-old female with a history of pancreatic cancer and experience epigastric pain related to the malignancy. She has been offered diagnostic celiac plexus block determine if she would be a candidate for a neurolytic celiac plexus block for longer term control of her epigastric pain. Her complaints, physical examination and amatory studies have not changed since consultation. No contraindication in apparent to proceeding. Celiac plexus block for diagnostic purposes were discussed with the patient in great detail including potential risks such as infection, bleeding, nerve injury, paralysis due to injury to the spinal cord, failure to lead patient symptoms as well as lack of efficacy. Potential other alternatives including medical management located nonopiate analgesics as well as unable to diagnose the efficacy of the simplex block were discussed with her if she elects not to proceed. She was understanding and gave informed consent.
[2020-07-11] MEDS ORDERED: fentaNYL citrate 100 MCG/2 ML VIAL ONE (13:40)
[2020-07-11] MEDS ORDERED: ROPIVACAINE 0.5% 5 MG/ML 30 ML VIAL INFIL ONE (13:58)
--- NOTE | 2020-07-11 14:15 | Operative Report ---
Post Operative Report Pre & Post Diagnosis Operation Date: 07/10/20 13:05 Pre-Op Diagnosis: Pancreatic Cancer Post-Op Diagnosis: Pancreatic Cancer Operation Date: 07/11/20 13:00 Pre-Op Diagnosis: COAGULOPATHY, CANCER RELATED PAIN Post-Op Diagnosis: COAGULOPATHY, CANCER RELATED PAIN I identified the patient and participated in the time-out.: Yes Procedure Operation Date: 07/10/20 13:05 Actual Procedures p Left Subclavian Mediport Insertion - Robert Umanzor DO Operation Date: 07/11/20 13:00 Actual Procedures p Ciliac Plexus Block(Not Applicable) - Mario Marie MD, FELIPE Surgeon Mario Marie MD, FELIPE Transportation Specialist n/a Estimated Blood Loss 0 I attest to the content of the Intraoperative Record and any orders documented therein. Any exceptions are noted below.
--- NOTE | 2020-07-11 14:19 | Anesthesiology Progress Note ---
Date of Service July 11, 2020 Anesthesia Post Procedure Vital Signs Vital Signs: Temp Pulse Pulse Resp BP BP Pulse Ox 07/11/20 14:10 79 13 131/82 97 07/11/20 14:02 36.8 C 85 14 122/74 92 07/11/20 13:02 37.3 C 75 18 136/82 07/11/20 10:54 36.7 C 92 H 16 121/78 94 07/11/20 05:56 36.9 C 81 16 125/75 96 07/11/20 03:00 36.7 C 85 16 138/89 95 07/10/20 22:00 37.0 C 85 16 115/70 96 07/10/20 18:42 36.7 C 108 H 22 125/77 94 07/10/20 17:24 37.1 C 108 H 20 122/81 94 07/10/20 16:44 36.9 C 95 H 20 138/88 92 07/10/20 16:01 36.9 C 83 22 132/85 96 07/10/20 15:31 36.6 C 83 18 149/89 H 93 07/10/20 15:10 36.5 C 83 14 134/95 94 07/10/20 15:00 82 12 153/91 H 94 07/10/20 14:50 89 20 144/95 H 94 07/10/20 14:40 89 16 132/106 H 100 07/10/20 14:32 36.6 C 94 H 15 140/91 100 Pain Intensity Abdomen: Pain Intensity: 7 Back: Pain Intensity: 7 Transfer of Care Handoff Completed per policy Notes Mental Status: alert / awake / arousable and participated in evaluation Patient Amnestic to Procedure: Yes Nausea / Vomiting: adequately controlled Pain: adequately controlled Airway Patency, RR, SpO2: stable & adequate BP & HR: stable & adequate Hydration State: stable & adequate Anesthetic Complications: no major complications apparent
--- NOTE | 2020-07-11 14:23 | Operative Report ---
Post Operative Report Pre & Post Diagnosis Operation Date: 07/10/20 13:05 Pre-Op Diagnosis: Pancreatic Cancer Post-Op Diagnosis: Pancreatic Cancer Operation Date: 07/11/20 13:00 Pre-Op Diagnosis: COAGULOPATHY, CANCER RELATED PAIN Post-Op Diagnosis: COAGULOPATHY, CANCER RELATED PAIN I identified the patient and participated in the time-out.: Yes Procedure Operation Date: 07/11/20 13:00 Actual Procedures Ciliac Plexus Block - Mario Marie MD, FELIPE Surgeon Mario Marie MD, FELIPE Corrections Unit Supervisor n/a Estimated Blood Loss 0 Findings Consistent with Post-Op Diagnosis Specimens none Drains none Anesthesia Type MAC Complications none Disposition Accompanied Patient To Recovery: No Disposition: Recovery Room Description of Procedure CELIAC PLEXUS BLOCK Preoperative diagnosis: Epigastric pain from pancreatic cancer Postoperative diagnosis: Same Anesthesia: MAC EBL: 0 Complications: None Disposition: PACU Side/Level injected: Right L1 Surgeon: Dr. Marie Prior to starting, the Patients diagnosis and the procedure were reviewed with the patient in detail. Possible risks and complications including infection, bleeding, damage to surrounding structures and increased pain were discussed. Alternative therapies were also reviewed. Patients questions were answered and they agreed to proceed. Informed consent was obtained. Allergies and medication list was reviewed. The patient was brought to the operating room and placed in prone position. Immediately prior to starting the procedure, a ``time out was conducted with the staff and the patient where the patient was identified, proposed procedure was verified, consent was reviewed and the proper site for the planned procedure was identified. Monitors used included intermittent blood pressure with automated device, continuous pulse oximetry and level of consciousness. Patient was not given any intravenous sedation and constant verbal contact was maintained throughout the procedure. Biplanar fluoroscopy was used to assist in placement of the needle as well as to evaluate final needle position prior to the injection. On examination, no signs of skin breakdown or infection were noted at the injection site. The site was cleansed with DuraPrep followed by Betadine. Sterile drapes were applied. The thoracolumbar spine area was prepped with DuraPrep and Betadine solution. Sterile drapes were applied. Next, a true AP view of the L1 vertebral body was identified. The C-arm was then turned approximately 25 obliquely to the appropriate side that the superior lateral margin of the vertebral body was congruent with the transverse process. 1% Lidocaine 2 cc, was infiltrated in the skin and subcutaneous tissues using a 27 gauge needle. Then a 22-gauge, 5 inch Quincke spinal needle with a 15 curved tip was introduced at the superior lateral margin of the L1 vertebral body and advanced until contact was made with the vertebral body. The needle was the rotated and walked off laterally from the vertebral body. In a true AP view and it was advanced until the needle tip lied at the anterior edge of the L1 vertebral body. A 6 inch micro bore tubing was attached to the needle. Next, 3ml of Isovue 300 contrast was injected showing typical spread along the celiac plexus. Digital subtraction angiography at 8 fps showed no vascular uptake. This was confirmed again in AP view. No blood, CSF or paresthesias were noted. Next 10 mL of 0.5% Ropivacaine containing 10 milligrams of aqueous dexamethasone was injected in 5ml aliquots after negative aspiration for blood or CSF. No complications were noted. There were no signs or symptoms of local anesthetic toxicity. The needle was withdrawn. Adequate hemostasis was noted. A sterile Band-Aid was applied at the injection site. Patient was then transferred to the recovery room for observation. I attest to the content of the Intraoperative Record and any orders documented therein. Any exceptions are noted below.
[2020-07-11] MEDS: MULTIVITAMIN TAB PO SCH (17:09)
[2020-07-11] MEDS: metFORMIN HCL ER 500 MG TABCR PO SCH (17:29)
[2020-07-11] MEDS: fentaNYL 25 MCG/HR TDSY TD SCH (19:28)
[2020-07-11] MEDS: clonazePAM 0.25 MG TAB PO PRN (19:29)
[2020-07-11] MEDS: busPIRone 15 MG TAB PO SCH (19:30)
[2020-07-11] MEDS: OXYBUTYNIN CHLORIDE XL 5 MG TABCR PO SCH (19:31)
[2020-07-11] MEDS: LOSARTAN POTASSIUM 25 MG TAB PO SCH (19:31)
[2020-07-11] MEDS: DOCUSATE SODIUM 100 MG CAP PO SCH (19:31)
[2020-07-11] MEDS: POLYETHYLENE (MIRALAX) 17 GM PACK PO SCH (19:32)
[2020-07-11] MEDS ORDERED: MIRTAZAPINE TAB 15 MG TAB PO SCH (21:00)
[2020-07-12] MEDS: CHECK fentaNYL PATCH PLACEMENT SCH ×2 (00:41→07:53)
[2020-07-12] MEDS: HYDROmorphone INJ 1 MG/ML SYRINGE IV PRN ×2 (02:35→07:51)
[2020-07-12 07:16] LABS: Hematocrit (blood only) 36.9 % (37-47); Mean Corpuscular Hemoglobin 27.3 pg (25-34); Mean Corpuscular Hgb Conc 32.5 g/dL (32-36); Mean Corpuscular Volume 84.1 fL (80-100); Mean Platelet Volume 10.4 fL (7.4-10.4); Platelet Count 185 K/uL (130-400); RDW Coefficient of Variation 13.9 % (11.5-14.5); RDW Standard Deviation 42.6 fL (36.4-46.3); Red Blood Count 4.39 M/uL (4.2-5.4); White Blood Count 5.45 K/uL (4.8-10.8)
[2020-07-12 07:44] LABS: BUN Creatinine Ratio 12.4 (10-20); Calcium 8.7 mg/dl (8.5-10.1); Creatinine Clr Calc Pharmacy 88.1 ml/min; Est GFR (African American) 101.1; Est GFR (Non-African American) 87.2; Potassium 3.3 mmol/L (3.5-5.1)
[2020-07-12] MEDS: TOPIRAMATE 100 MG TAB PO SCH (07:53)
[2020-07-12] MEDS: DOCUSATE SODIUM 100 MG CAP PO SCH (07:53)
[2020-07-12] MEDS: GABAPENTIN 800 MG TAB PO SCH (07:54)
[2020-07-12] MEDS: ACETAMINOPHEN 500 MG TAB PO SCH (07:54)
[2020-07-12] MEDS: PANTOprazole 40 MG TAB PO SCH (07:54)
[2020-07-12] MEDS: VENLAFAXINE HCL XR 37.5 MG CAPXR PO SCH (07:55)
[2020-07-12] MEDS: VENLAFAXINE HCL XR 75 MG CAPXR PO SCH (07:55)
[2020-07-12] MEDS: SENNA 8.6 MG TAB PO SCH (07:55)
[2020-07-12] MEDS: POLYETHYLENE (MIRALAX) 17 GM PACK PO SCH (07:56)
--- NOTE | 2020-07-12 08:31 | Pain Management Progress Note ---
Date of Service July 12, 2020 Assessment & Plan (1) Abdominal pain: (2) Pancreatic cancer: * Patient had significant response to celiac plexus block. We discussed the potential for the injected aqueous dexamethasone to improve efficacy over the next 1-2 weeks. We discussed the diagnostic outcome of the procedure. Should she develop symptom recurrence we discussed her candidacy for neuro lytic celiac plexus block. Patient verbalized understanding all of her questions were answered. * Patient will continue medical management per palliative care team * Will follow up in outpatient pain clinic in 2 weeks for reassessment for further discussion regarding recommendations for possible neurolytic celiac plexus block. Admission and Anticipated Discharge Date Admission Date: July 08, 2020 Subjective Mrs. Trinh underwent celiac plexus block yesterday in the OR setting with Dr. Marie. Patient indicated that she had significant relief, with complete resolution of her midepigastric abdominal pain and midthoracic back pain after the procedure lasting until approximately 1900. Her procedure was completed between [id number] indicating that she had approximately 5-6 hours of significant relief of her typical pain. She has noted some recurrence last evening and early this morning but her most significant pain is been a 6/10 since the time of the procedure. The pain remains in the midepigastric and mid thoracic spinal regions. She denies change in location or characteristic. She reported no side effects from the procedure. Patient is currently generally pleased with the results of the procedure and has no further constitutional complaints. Plan of care discussed with Dr. Nadia Ca. Pain Assessment Pain Assessment Full Body Front + Back: 1. Midepigastric abdomen 2. Mid-lower thoracic spinal region Pain scale - at its best (0-10): 0 Pain scale - at its worst (0-10): 6 Physical Exam Physical Exam: General: Patient was sitting up upon and in the room in no acute distress communicating with the nurse. Speech and thought process appropriate. Mood and affect appropriate. Cognition intact. Back/spine: No evidence of edema, erythema or skin breakdown at site of celiac plexus block. Band-Aid was removed for visual inspection. Patient is nontender to palpation or percussion over the midline of the thoracic spinal region. Nontender in the paravertebral musculature. Abdomen: Patient is minimally tender in the midepigastric region to palpation. No rebound or guarding.
[2020-07-12] MEDS: INSULIN ASPART 100 UNITS/ML 3 ML PEN SC SCH ×3 (08:47→13:43)
[2020-07-12] MEDS ORDERED: AZITHROMYCIN 250 MG TAB PO SCH (09:00)
[2020-07-12] MEDS ORDERED: POTASSIUM CHLORIDE CRTAB 20 MEQ TABCR PO STA (09:08)
[2020-07-12] MEDS ORDERED: ENOXAPARIN INJ 120 MG/0.8 ML SYR SQ ONE (09:32)
--- NOTE | 2020-07-12 09:35 | Hospitalist Progress Note ---
Date of Service July 12, 2020 Assessment & Plan Admission and Anticipated Discharge Date Admission Date: July 08, 2020 Results & Data Results & Data ([facility]) Vital Signs (Past 12 Hours) Vital Signs Temp Pulse Resp BP Pulse Ox 07/12/20 07:38 37.1 C 82 18 132/77 97 07/12/20 02:33 36.9 C 88 18 143/80 H 99 07/11/20 23:00 37.3 C 87 16 117/74 93 Laboratory Results 07/12/20 07/12/20 07/12/20 Range/Units 06:38 06:38 06:38 WBC 5.45 (4.8-10.8) K/uL RBC 4.39 (4.2-5.4) M/uL Hgb 12.0 (12.0-16.0) g/dL Hct 36.9 L (37-47) % MCV 84.1 (80-100) fL MCH 27.3 (25-34) pg MCHC 32.5 (32-36) g/dL RDW Std Deviation 42.6 (36.4-46.3) fL RDW Coeff of Natali 13.9 (11.5-14.5) % Plt Count 185 (130-400) K/uL MPV 10.4 (7.4-10.4) fL Immature Gran % (Auto) % Neut % (Auto) % Lymph % (Auto) % Mellette % (Auto) % Eos % (Auto) % Baso % (Auto) % Neut # (Auto) (1.4-6.5) K/uL Lymph # (Auto) (1.2-3.4) K/uL Mellette # (Auto) (0.11-0.59) K/uL Eos # (Auto) (0-0.5) K/uL Baso # (Auto) (0-0.2) K/uL Immature Gran # (Auto) (0.00-0.02) K/uL Sodium 137 (136-145) mmol/L Potassium 3.3 L (3.5-5.1) mmol/L Chloride 107 (98-107) mmol/L Carbon Dioxide 25 (21-32) mmol/L Anion Gap 5.0 (3-11) BUN 9 (7-18) mg/dl Creatinine 0.75 (0.6-1.2) mg/dl Est Cr Clr Drug Dosing 88.1 ml/min Est GFR ( Amer) 101.1 Est GFR (Non-Af Amer) 87.2 BUN/Creatinine Ratio 12.4 (10-20) Glucose 167 H (70-99) mg/dl POC Glucose (70-99) mg/dl Calcium 8.7 (8.5-10.1) mg/dl Magnesium Pending 07/11/20 07/11/20 07/11/20 Range/Units 20:34 16:58 15:17 WBC (4.8-10.8) K/uL RBC (4.2-5.4) M/uL Hgb (12.0-16.0) g/dL Hct (37-47) % MCV (80-100) fL MCH (25-34) pg MCHC (32-36) g/dL RDW Std Deviation (36.4-46.3) fL RDW Coeff of Natali (11.5-14.5) % Plt Count (130-400) K/uL MPV (7.4-10.4) fL Immature Gran % (Auto) % Neut % (Auto) % Lymph % (Auto) % Mellette % (Auto) % Eos % (Auto) % Baso % (Auto) % Neut # (Auto) (1.4-6.5) K/uL Lymph # (Auto) (1.2-3.4) K/uL Mellette # (Auto) (0.11-0.59) K/uL Eos # (Auto) (0-0.5) K/uL Baso # (Auto) (0-0.2) K/uL Immature Gran # (Auto) (0.00-0.02) K/uL Sodium (136-145) mmol/L Potassium (3.5-5.1) mmol/L Chloride (98-107) mmol/L Carbon Dioxide (21-32) mmol/L Anion Gap (3-11) BUN (7-18) mg/dl Creatinine (0.6-1.2) mg/dl Est Cr Clr Drug Dosing ml/min Est GFR ( Amer) Est GFR (Non-Af Amer) BUN/Creatinine Ratio (10-20) Glucose (70-99) mg/dl POC Glucose 192 H 119 H 106 H (70-99) mg/dl Calcium (8.5-10.1) mg/dl Magnesium 07/11/20 07/11/20 07/11/20 Range/Units 14:04 12:09 07:46 WBC 5.51 (4.8-10.8) K/uL RBC 4.56 (4.2-5.4) M/uL Hgb 12.8 (12.0-16.0) g/dL Hct 38.3 (37-47) % MCV 84.0 (80-100) fL MCH 28.1 (25-34) pg MCHC 33.4 (32-36) g/dL RDW Std Deviation 43.5 (36.4-46.3) fL RDW Coeff of Natali 14.1 (11.5-14.5) % Plt Count 205 (130-400) K/uL MPV 11.0 H (7.4-10.4) fL Immature Gran % (Auto) 0.2 % Neut % (Auto) 56.6 % Lymph % (Auto) 30.3 % Mellette % (Auto) 8.0 % Eos % (Auto) 4.7 % Baso % (Auto) 0.2 % Neut # (Auto) 3.12 (1.4-6.5) K/uL Lymph # (Auto) 1.67 (1.2-3.4) K/uL Mellette # (Auto) 0.44 (0.11-0.59) K/uL Eos # (Auto) 0.26 (0-0.5) K/uL Baso # (Auto) 0.01 (0-0.2) K/uL Immature Gran # (Auto) 0.01 (0.00-0.02) K/uL Sodium (136-145) mmol/L Potassium (3.5-5.1) mmol/L Chloride (98-107) mmol/L Carbon Dioxide (21-32) mmol/L Anion Gap (3-11) BUN (7-18) mg/dl Creatinine (0.6-1.2) mg/dl Est Cr Clr Drug Dosing ml/min Est GFR ( Amer) Est GFR (Non-Af Amer) BUN/Creatinine Ratio (10-20) Glucose (70-99) mg/dl POC Glucose 95 134 H (70-99) mg/dl Calcium (8.5-10.1) mg/dl Magnesium PG Care Time/CCT Total # of Minutes Spent Total Time Spent with Patient: Total time spent is greater than 50% in coordination of care (as documented) at patient's floor/unit and/or counseling patient: Coding
[2020-07-12] MEDS ORDERED: ENOXAPARIN 150 MG/ML SYR SQ ONE (09:45)
--- NOTE | 2020-07-12 10:08 | Palliative Care Progress Note ---
Date of Service July 12, 2020 Assessment & Plan (1) Abdominal pain: Improved with celiac plexus block. Continue fentanyl and prn oxycodone. Anticipate discharge today. We discussed medications for home and will f/u with outpatient palliative care on 07/18 at 3:30 (2) Constipation: Discussed daily miralax at home. She will titrate as needed for bms. (3) Anorexia: Ten pound weight loss in the last two months. She is seeing a marketing professor. We have discussed ways to maximize calories with decreased appetite. (4) Palliative care encounter: She is understandably anxious about her recent diagnosis. She will be starting chemotherapy on 07/29. Palliative care will follow on outpatient basis for support and symptom management. (5) Pancreatic cancer: Admission and Anticipated Discharge Date Admission Date: July 08, 2020 Subjective Reports zero pain after celiac plexus block yesterday. This morning she has 6/10 pain which is more related to chronic back pain and muscle spasm. She has had 55 OME in last 24 hours. Review of Systems Review of Systems: [place] Symptom Assessment Scale Pain 2/3 Dyspnea 0/3 Nausea 0/3 Fatigue1/3 Anxiety 1/3 Palliative Performance Score 60% Physical Exam Constitutional: no acute distress Respiratory: normal respiratory effort; no labored breathing Cardiovascular: Extremities: no edema Musculoskeletal: Extremities: extremities normal to inspection Skin: warm and dry Neurologic: PERRL, EOMI, accommodation nl, no face palsy, no dysarthria no focal motor deficits Psychiatric: A+Ox3, euthymic affect Results & Data ([facility]) Vital Signs (Past 12 Hours) Vital Signs Temp Pulse Resp BP Pulse Ox 07/12/20 07:38 98.8 F 82 18 132/77 97 07/12/20 02:33 98.4 F 88 18 143/80 H 99 07/11/20 23:00 99.1 F 87 16 117/74 93 PG Care Time/CCT Total # of Minutes Spent Total Time Spent with Patient: Total time spent is greater than 50% in coordination of care (as documented) at patient's floor/unit and/or counseling patient: Coding Level of Care Code 11872 Subseq Hosp Care Lvl 2 Diagnoses Abdominal pain R10.9 Constipation K59.00 Anorexia R63.0 Palliative care encounter Z51.5 Pancreatic cancer C25.9 Pancreatic malignancy location: unspecified (1) Pancreatic cancer Pancreatic malignancy location: unspecified Qualified Code(s): C25.9 - Malignant neoplasm of pancreas, unspecified
[2020-07-12] MEDS ORDERED: bisacodyL 5 MG TABEC PO ONE (10:31)
--- NOTE | 2020-07-12 10:34 | Discharge Summary ---
Date of Service July 12, 2020 Admission HPI Per Admitting Provider [id number] with severe abdominal pain and nausea/vomiting, unable to keep anything down. The patient was recently diagnosed with pancreatic cancer (adenocarcinoma). The patient states that she is scheduled to start chemothe rapy at the beginning of next month and is also supposed to get placement of a port. She states that her pcp switched her to a fentanyl patch 3 days ago from oral opiates. She states she does not have any oxycodone or other prescribed medications for breakthrough pain and her pain has been poorly controlled for the past few days because of this. Her primary reason for presentation is pain control. The patient notes that she also has been having worsening nausea and vomiting, states that the vomiting started last night and she has not been able to keep anything down since then. She denies any bloody, coffee-ground, or bilious emesis. She does have a prescription antinausea medicine, but she states this has not been helping. She notes that her pain has been 10/10 today. She denies any chest pain, chest tightness, shortness of breath, palpitations, dizziness or syncope, back pain, diarrhea or constipation, or urinary complaints. Admission Exam Per Admitting Provider The patient appeared chronically ill and emotionally distraught Vital signs as documented. Head exam is normocephalic atraumatic no scleral icterus Neck is without JVD, thyromegaly, or carotid bruits. Lungs are clear to auscultation, no focal loss of breath sounds Cardiac exam, Rhythm is regular.. No murmurs, rubs or gallops. Abdominal exam reveals normal bowel sounds producible epigastric pain without organomegaly Extremities are nonedematous and both pedal pulses are present Neurologic exam is alert and oriented, no focal loss of strength or sensation Skin is without bruises or rashes Psychologically is with concerns for depression to deal with a recent diagnosis of cancer Principal Diagnosis Cancer associated pain Discharge Exam Constitutional well developed, cooperative and comfortable; no acute distress Eyes + anicteric sclerae and PERRL ENMT Ears: no hearing impairment Mouth: + edentulous; oral mucous membranes not dry Neck normal visual inspection Respiratory normal respiratory effort; no respiratory distress and no labored breathing Auscultation: lungs clear to auscultation bilaterally and + diminished lung sounds Cardiovascular Rate/Rhythm: regular rate and regular rhythm Heart Sounds: no murmur and no cardiac rub Extremities: no edema Gastrointestinal (Abdomen) Inspection/Auscultation: abdomen normal to inspection and normal bowel sounds; abdomen not distended Percussion/Palpation: abdomen soft; abdomen nontender, no guarding and abdomen not rigid Musculoskeletal Extremities: extremities normal to inspection and strength 5/5 throughout Skin ecchymosis L back from admission bandaid from plexus block -- no sx infection Neurologic PERRL, EOMI, accommodation nl, no face palsy, no dysarthria moves all extremities and awake; no focal motor deficits and not confused Psychiatric Orientation: alert and oriented x 3 Affect: + anxious affect (about being excited for discharge and getting home today) Lymphatic no cervical or axillary lymphadenopathy Discharge Data Allergies Allergy/AdvReac Type Severity Reaction Status Date / Time latex Allergy Intermediate rash Verified 07/10/20 13:08 sulfamethoxazole Allergy Intermediate itching, Verified 07/10/20 13:08 chest tightness trimethoprim Allergy Intermediate itching, Verified 07/10/20 13:08 chest tightness adhesive Allergy Unknown ITCHY SKIN Verified 07/10/20 13:08 clindamycin AdvReac Severe Diarrhea Verified 07/10/20 13:08 doxycycline AdvReac Intermediate nausea and Verified 07/10/20 13:08 vomiting Consultations 07/08/20 13:06 ED Decision to Admit Stat 07/08/20 16:40 Consult Palliative Care Stat 07/09/20 09:23 Consult General Surgery Routine 07/09/20 13:56 Consult Pain Management Routine 07/10/20 21:39 Consult Pulmonology Routine Procedures Performed Operation Date: 07/10/20 13:05 Actual Procedures p Left Subclavian Mediport Insertion - Robert Umanzor, Operation Date: 07/11/20 13:00 Actual Procedures p Ciliac Plexus Block(Not Applicable) - Mario Marie MD, FIPP Ordered Studies 07/08/20 11:28 CT abd pelvis IV con only Stat 07/09/20 12:57 MR abdomen wo/w con Routine 07/10/20 13:05 FL fluoro (infusaport) to 1 hr Routine 07/10/20 13:33 CT chest diagnostic w con Routine 07/11/20 13:00 FL fluoroscopy <1hr Routine FL lumbar spine 2-3V Routine Hospital Course (1) Cancer associated pain: Given Fentanyl patch over weekend from PCP but did not have PO alternatives for breakthrough d/t insurance Utilizing oxycodone PO and dilaudid prn for control while inpatient. Continued bowel regimen for opiate related constipation -- did have BM but to continue bowel regimen at discharge to prevent opiate related constipation Continued gabapentin 800mg TID Palliative medicine consulted - recs for plexus block Pain management was consulted s/p Celiac Plexus block on 07/[address] Marie. Pain drastrically improved from admission and will take some time for full effect. To f/u with them as scheduled Sent with Fentanyl for basal control, PO oxycodone for breakthrough but discussed that hopefully will be able to wean down as frequent dosing as block in full effect. Already taking less since the block compared to days past and seemed drastically more comfortable than in days past Pancreatic Ca Given increased size of pancreatic mass and planned a-port next month for chemo, decision undertaken to consult with general surgery during admission to expedite this process. CA19-9 was 288 during admission (up from May 2020) s/p A-port placement with Dr. 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 With regards to newer findings, felt to be new since admission and placed on 5 days Azithromycin for treatment. 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 No further bleeding Discussed with Dr. Haq -- to switch to lovenox at last appointment but that appointment was cancelled --> discussed with patient and will switch to Lovenox and she will have JOSSELIN administer at home. Utilized SCDs while NPO for procedures as outlined above Started on 130mg SQ Lovenox daily at discharge and she will need follow up with coagulation clinic for further management Celiac vessels appear more opened on repeat imaging already, but given patient with active ca, will need indefinite treatment with Lovenox (3) Pancreatic cancer: [facility] oncology visit of 06/18/2020 shows FNA to be consistent with adenocarcinoma and pancreatic carcinoma is the working diagnosis. Lipase wnl * CT abdomen and pelvis 07/08/2020 IMPRESSION: * 4 cm pancreatic head mass (prior in 2s) * 37 mm hypervascular mass in the right lobe of the liver consistent with a hemangioma * There are for additional hypodense indeterminate hepatic lesions. * No evidence of bowel obstruction. No evidence of free air * No evidence of acute appendicitis. No evidence of acute diverticulitis. CA19-9 288 from 172 as above General surgery consulted for a-port placement as above Celiac plexus for pain control performed by Dr. Marie on 07/11 with improvement of symptoms Lovenox as above (4) Diabetes: Pharm consulted A1c 6 -- new from last admission secondary to pancreatic insufficiency in pt with pancreatic ca ISS while inpatient, holding metformin but resumed at discharge and instructed to increase to BID if tolerated at discharge (want to avoid worsening GI upset obviously) BSGs acceptable (5) Depression with anxiety: Continues BuSpar and Effexor Klonpin prn (6) Hypertension: chronic stable continued losartan 25mg (7) Hyperlipidemia: Atorvastatin held during admission to prevent any extra aches/pains -- resumed at discharge (8) Cervicogenic headache: Is on many medications for this we will continue her Topamax Neurontin tizanidine no headache reported today (hasn't had one for a while per her report) DVT Proph SCDS Lovenox utilized at discharge per discussion with Dr. Haq and coumadin was discontinued at this time Patient very excited for discharge today. Discussed with sister Soha and also had Dr. Bond discuss case with patient. Intiially told chemo not able to start until July 29 however prior to discharge we already have time for Wednesday scheduled. Total Time Total Time Spent Total Time Spent (In Minutes): 120 Discharge Plan Discharge Items Patient Disposition: Home - Self-Care Reason For Visit: COAGULOPATHY, CANCER RELATED PAIN Discharge Diagnosis: Cancer Related Pain Goals: You have been hospitalized for an urgent problem which required surgery. During your stay at [facility], we have made an effort to correct the problem that brought you to the hospital while keeping you as comfortable as possible. Surgery and medications were used to bring your condition under control and your discharge instructions will include directions for any medications you should take after leaving the hospital. Please make sure to follow the advice of your surgeon regarding follow up with the surgeon and with your primary care provider. Activity: Resume your previous activity Non-emergency contact: Primary Care Provider, Surgeon, Oncologist and Pain Management Call non-emergency contact if: you have any medication questions, your symptoms worsen and your pain is not controlled Follow-up/Referrals: Brent Dye III, CRNP [Primary Care Provider] - Mario Marie MD, FIPP [Anesthesiologist] - 07/24/20 Robert Umanzor, [Surgeon] - 07/31/20 10:45 am (please call to schedule follow up in clinic within 2 weeks) Angelina Humphrey MD [Physician] - 07/18/20 3:30 pm ([address] [place] [address], [address] [place] [address]) Micky Marshall MD [Hospitalist] - 07/29/20 Diet: Carb Consistent or DM2 and Heart Healthy Addtl Attending Provider Instructions: your port may be used as early today Addtl City Auditor Provider Instructions: You have been hospitalized for pain control. While in the hospital you utilized IV and oral pain medications and consultation was undergone by pain management. They performed a celiac plexus block which has provided good relief and will take a little while for full effects. Please follow up with them on the as previously scheduled. You are to continue the fentanyl patch for baseline relief and will be sent prescription for oxycodone to utilize as needed every 4-6 hours as needed for breakthrough pain. It is hoped that as the block becomes more effective you will need less pain medication. Please continue a bowel regimen with miralax twice daily and colace to help prevent constipation. Imaging of your liver was performed which did not show any suspicious lesions. General surgery was consulted for a-port placement for chemo and this is ready to be used. Please follow up with them in two weeks for a wound check/follow up. Discussion with office of Dr. Marshall and zhang to begin on the as discussed. Per later conversation, appears to have appointment moved up to next wednesday. Discussion with Dr. Haq from anticoagulation clinic for recommendations for Lovenox for DVT prophylaxis/continued treatment for the SMV thrombus (which appeared improved on repeat imaging) and will need to continue indefinitely given underlying malignancy. Chest imaging was performed and consultation underwent with pulmonary medicine. Spring no suspicious lesions however not 100% certainty but could be from scarring from previous surgery. You should plan for repeat follow up in the next month for assessment. They have recommended Azithromycin for five days. You completed 2 days and have 3 additional days of treatment left. You will continue your metformin but please increase to twice daily if you are able to tolerate to help gain better control of your blood sugars. Please follow up with Dr. Rendon, Dr Umanzor from General surgery, Dr. Humphrey from Palliative Care. Please follow up with your PCP in the next week for continued refills of your pain medications as needed. Please return to the emergency department with any worsening pain, shortness of breath, fever, or for any other symptoms that are concerning for you. It has been a pleasure being a part of the medical team providing for you while you have been in the hospital. Take care! Pending Studies at Discharge: No Stand-Alone Forms: My [facility], Opioid Pain Management, Smoking Isael sation Medications and DC Order Prescriptions: New polyethylene glycol 3350 [Miralax] 17 gram Powder In Packet 17 g PO BID Qty: 30 RF: 0 docusate sodium 100 mg Capsule 100 mg PO BID Qty: 60 RF: 0 oxycodone 5 mg Tablet 5 mg PO Q4H PRN (Reason: pain) Qty: 20 RF: 0 sennosides [Senokot] 8.6 mg Tablet 17.2 mg PO QAM Qty: 30 RF: 0 azithromycin 250 mg tablet 250 mg PO DAILY 3 Days Qty: 3 RF: 0 enoxaparin 150 mg/mL syringe 127.5 mg subcut DAILY Qty: 10 RF: 3 Continued atorvastatin 40 mg tablet 40 mg PO DAILY Qty: 30 RF: 5 sumatriptan succinate 6 mg/0.5 mL pen injector 6 mg subcut .COMPLEX PRN (Reason: Migraine Headache) Qty: 1 RF: 0 tizanidine 4 mg tablet 4 mg PO QID PRN (Reason: muscle spasticity) Qty: 90 RF: 5 ferrous sulfate 325 mg (65 mg iron) tablet,delayed release (DR/EC) 325 mg PO BID Qty: 60 RF: 5 rizatriptan 10 mg tablet 10 mg PO .COMPLEX PRN (Reason: Migraine Headache) 90 Days Qty: 27 RF: 1 multivitamin [Daily Multi-Vitamin] tablet 1 tab PO QDD RF: 0 promethazine 25 mg tablet 25 mg PO BID PRN (Reason: migraine, nausea) Qty: 60 RF: 1 gabapentin 800 mg tablet 800 mg PO TID Qty: 90 RF: 5 topiramate 100 mg capsule,sprinkle,ER 24hr 100 mg PO DAILY 90 Days Qty: 90 RF: 1 Narcan 4 mg/actuation spray,non-aerosol 4 mg intranasal Q2M PRN (Reason: opioid overdose) Qty: 2 RF: 0 Emgality Pen 120 mg/mL pen injector 120 mg SQ MONTHLY 30 Days Qty: 1 RF: 5 clonazepam 0.5 mg tablet 0.25 mg PO HS PRN (Reason: Unknown) RF: 0 venlafaxine 75 mg capsule,extended release 24hr 37.5 mg PO QAM RF: 0 docusate sodium 100 mg Capsule 100 mg PO BID Qty: 20 RF: 0 pantoprazole 40 mg Tablet,Delayed Release (Dr/Ec) 40 mg PO QAM 30 Days Qty: 30 RF: 3 acetaminophen [Tylenol Extra Strength] 500 mg Tablet 1,000 mg PO DIRECTED PRN (Reason: Pain) RF: 0 diphenhydramine HCl [Benadryl] 25 mg Capsule 25 mg PO Q6H PRN (Reason: Allergy Symptoms) RF: 0 buspirone 30 mg tablet 30 mg PO HS RF: 0 chlorpromazine 10 mg tablet 10 mg PO HS RF: 0 venlafaxine 75 mg capsule,extended release 24hr 75 mg PO QAM RF: 0 oxybutynin chloride 10 mg tablet extended release 24hr 10 mg PO HS RF: 0 losartan 25 mg tablet 25 mg PO HS RF: 0 ergocalciferol (vitamin D2) [Vitamin D2] 1,250 mcg (50,000 unit) capsule 50,000 unit PO FR RF: 0 fentanyl 25 mcg/hr patch 72 hour 1 patch transdermal Q72H Qty: 2 RF: 0 Changed metformin 500 mg tablet extended release 24 hr 1,000 mg PO HS Qty: 60 RF: 0 Discontinued warfarin 5 mg tablet See Rx Instructions PO UD RF: 0 Discharge Orders: Discharge Order (Routine); Ordered 07/12/20 Ordered By: Maribel Aguilar/Other Patient Handouts: High Blood Sugar (Hyperglycemia), Hypoglycemia (Low Blood Sugar), Managing Diabetes: The A1C Test, Enoxaparin injection, Azithromycin tablets, Oxycodone tablets or capsules Admission Data Admit Date/Time: 07/08/20 14:09 Attending Provider: Bryce Bond Admit Provider: Louis Saavedra Primary Care Provider: Brent Dye III Other Providers: Bryce Bond ; [facility] ; Louis Saavedra ; Angelina Humphrey ; Robert Umanzor ; Nadia Ca ; Rubin Cisneros Other Interventions: Discharge Summary Assessment (RN) Last Done: 07/12/20 12:42 Supervising Physician Co-Signing Physician Notes I supervised Maribel Steinberg PA-C on this admission. I interviewed and examined the patient independently of her. The plan is as written in her note except for any following changes/exceptions: None Feeling better after celiac plexus block yesterday. Has short-term follow up with [facility] oncology next week to begin chemotherapy. Will also follow up with palliative care outpatient to discuss pain regimen as treatment continues. 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
[2020-07-12] MEDS ORDERED: AZITHROMYCIN 250 MG TAB PO ONE (11:44)
[2020-07-12] MEDS: oxyCODONE HCL IR 5 MG TAB (IMMEDIATE RELEASE) PO PRN (12:20)
== END 2020-07-12 13:50 | disposition home health service (06) | DRG 948 ==
LOC: ED 08:58 → 3N 14:09 → SUATTDRO 14:09 → 3N 16:12

== ENCOUNTER 2020-07-13 14:45 | Inpatient (IN) ==
[2020-07-13] MEDS ORDERED: ONDANSETRON INJ 2 MG/ML 2 ML VIAL IV STA ×2 (17:23→19:28)
[2020-07-13] MEDS ORDERED: HYDROmorphone INJ 0.5 MG/0.5 ML SYR IV STA ×2 (17:23→19:28)
[2020-07-13] MEDS ORDERED: SODIUM CHLORIDE 0.9% 1000ML 1,000 ML IV ONE (17:23)
[2020-07-13 17:32] LABS: Basophils # (auto) 0.03 K/uL (0-0.2); Basophils % (auto) 0.4 %; Eosinophils # (auto) 0.07 K/uL (0-0.5); Eosinophils % (auto) 0.9 %; Hematocrit (blood only) 40.5 % (37-47); Hemoglobin 14.1 g/dL (12.0-16.0); Immature Granulocytes # (auto) 0.02 K/uL (0.00-0.02); Immature Granulocytes % (auto) 0.3 %; Lymphocytes # (auto) 1.53 K/uL (1.2-3.4); Lymphocytes % (auto) 20.6 %; Mean Corpuscular Hemoglobin 28.7 pg (25-34); Mean Corpuscular Hgb Conc 34.8 g/dL (32-36); Mean Corpuscular Volume 82.3 fL (80-100); Mean Platelet Volume 10.7 fL (7.4-10.4); Monocytes # (auto) 0.59 K/uL (0.11-0.59); Monocytes % (auto) 7.9 %; Neutrophils % (auto) 69.9 %; Platelet Count 241 K/uL (130-400); RDW Coefficient of Variation 14.1 % (11.5-14.5); RDW Standard Deviation 42.3 fL (36.4-46.3); Red Blood Count 4.92 M/uL (4.2-5.4); White Blood Count 7.44 K/uL (4.8-10.8)
[2020-07-13 17:43] LABS: Alanine Aminotransferase 27 U/L (12-78); Albumin Level 4.5 gm/dl (3.4-5.0); Aspartate Aminotransferase 15 U/L (15-37); BUN Creatinine Ratio 9.7 (10-20); Blood Urea Nitrogen 7 mg/dl (7-18); Calcium 9.1 mg/dl (8.5-10.1); Carbon Dioxide 23 mmol/L (21-32); Chloride 106 mmol/L (98-107); Creatinine Clr Calc Pharmacy 89.3 ml/min; Est GFR (African American) 104.5; Est GFR (Non-African American) 90.1; Glucose 124 mg/dl (70-99); Magnesium 1.8 mg/dl (1.8-2.4); Sodium 137 mmol/L (136-145)
[2020-07-13 17:45] LABS: Prothrombin Time 10.4 Seconds (9.0-12.0)
[2020-07-13 17:48] LABS: Albumin Globulin Ratio 1.4 (0.9-2); Alkaline Phosphatase 93 U/L (45-117); Bilirubin,Total 0.4 mg/dl (0.2-1); Globulin 3.2 gm/dl (2.5-4.0); Phosphorus 3.1 mg/dl (2.5-4.9); Total Protein 7.7 gm/dl (6.4-8.2); Troponin I < 0.015 ng/ml (0-0.045)
--- NOTE | 2020-07-13 18:00 | XRay Report ---
XR chest 1V portable HISTORY: epigastric pain COMPARISON: Chest 07/10/2020. FINDINGS: Chronic elevation of the left hemidiaphragm with left basilar linear densities likely repre senting subsegmental atelectasis. The cardiac silhouette remains borderline enlarged. Left subclavian Port-A-Cath terminates in the SVC. There are poststernotomy changes. The right lung is clear. No pne umothorax. No pleural effusions. IMPRESSION: No significant change compared to the prior study. No acute process. ACT 112: Negative or not required by law. Electronically signed by: Joshua Jacobo M.D. 07/13/2020 5:59 PM
[2020-07-13] MEDS ORDERED: OPTIRAY 320 100ml IV ONE (18:29)
--- NOTE | 2020-07-13 18:34 | Emergency Department Note ---
History of Present Illness General Chief complaint: Abdominal Pain Stated complaint: ABDOMINAL PAIN - DISCHARGED FROM [facility] 07/12 Time Seen by Provider: 07/13/20 17:01 History of Present Illness Maximum Pain Intensity: 10 This patient is a 60-year-old female who presents ambulatory to the emergency department for evaluation of continued sharp, stabbing epigastric pain that has gotten progressively worse over the last several weeks. The patient was recently diagnosed with pancreatic cancer. She was admitted to the hospital and discharged yesterday on oxycodone, which does not seem to be helping with the pain. She has also been nauseated with several episodes of vomiting. She repo rts loose stools. No coffee-ground emesis or bright red or black stools reported. She does not feel feverish. She has not yet seen her family doctor since she was discharged from the hospital. Home Medications Medication Instructions Recorded Confirmed Type multivitamin 1 tab PO QDD 10/26/18 07/13/20 History atorvastatin 40 mg tablet 40 mg PO DAILY #30 tab 06/20/19 07/13/20 Rx clonazepam 0.5 mg tablet 0.25 mg PO HS PRN tab 01/04/20 07/13/20 History galcanezumab-gnlm 120 mg/mL 120 mg SQ MONTHLY 30 Days #1 ml 01/04/20 07/13/20 Rx subcutaneous pen injector sumatriptan succinate 6 mg/0.5 mL 6 mg SUBCUT .COMPLEX PRN #1 ml 03/18/20 07/13/20 Rx subcutaneous pen injector gabapentin 800 mg tablet 800 mg PO TID #90 tab 04/10/20 07/13/20 Rx topiramate 100 mg capsule 100 mg PO DAILY 90 Days #90 ea 04/10/20 07/13/20 Rx sprinkle,extended release 24 hr buspirone 30 mg PO HS 04/16/20 07/13/20 History chlorpromazine 10 mg PO HS 04/16/20 07/13/20 History promethazine 25 mg tablet 25 mg PO BID PRN #60 tab 04/25/20 07/13/20 Rx tizanidine 4 mg tablet 4 mg PO QID PRN #90 tab 05/01/20 07/13/20 Rx docusate sodium 100 mg PO BID #20 cap 05/15/20 07/13/20 Rx pantoprazole 40 mg PO QAM 30 Days #30 tab 05/15/20 07/13/20 Rx venlafaxine 75 mg capsule,extended 37.5 mg PO QAM cap 05/22/20 07/13/20 History release 24 hr ferrous sulfate 325 mg (65 mg 325 mg PO BID #60 tab 05/23/20 07/13/20 Rx iron) tablet,delayed release acetaminophen [Tylenol Extra 1,000 mg PO DIRECTED PRN 06/12/20 07/13/20 History Strength] diphenhydramine HCl [Benadryl] 25 mg PO Q6H PRN 06/12/20 07/13/20 History naloxone 4 mg/actuation nasal spray 4 mg INTRANASAL Q2M PRN #2 ea 06/24/20 07/13/20 Rx rizatriptan 10 mg tablet 10 mg PO .COMPLEX PRN 90 Days #27 06/24/20 07/13/20 Rx tab ergocalciferol (vitamin D2) 50,000 unit PO FR 07/08/20 07/13/20 History [Vitamin D2] losartan 25 mg PO HS 07/08/20 07/13/20 History oxybutynin chloride 10 mg PO HS 07/08/20 07/13/20 History venlafaxine 75 mg PO QAM 07/08/20 07/13/20 History azithromycin 250 mg PO DAILY 3 Days #3 tab 07/12/20 07/13/20 Rx docusate sodium 100 mg PO BID #60 cap 07/12/20 07/13/20 Rx enoxaparin 127.5 mg SUBCUT DAILY #10 ml 07/12/20 07/13/20 Rx fentanyl 1 patch TRANSDERMAL Q72H #2 ea 07/12/20 07/13/20 Rx metformin 1,000 mg PO HS #60 tab 07/12/20 07/13/20 Rx oxycodone 5 mg PO Q4H PRN #20 tab 07/12/20 07/13/20 Rx polyethylene glycol 3350 [Miralax] 17 g PO BID #30 ea 07/12/20 07/13/20 Rx sennosides [Senokot] 17.2 mg PO QAM #30 tab 07/12/20 07/13/20 Rx Allergies Allergy/AdvReac Type Severity Reaction Status Date / Time latex Allergy Intermediate rash Verified 07/13/20 18:29 sulfamethoxazole Allergy Intermediate itching, Verified 07/13/20 18:29 chest tightness trimethoprim Allergy Intermediate itching, Verified 07/13/20 18:29 chest tightness adhesive Allergy Unknown ITCHY SKIN Verified 07/13/20 18:29 clindamycin AdvReac Severe Diarrhea Verified 07/13/20 18:29 doxycycline AdvReac Intermediate nausea and Verified 07/13/20 18:29 vomiting Past Med/Surg History Medical History Abdominal pain Acute pancreatitis Depression (09/09/12) Diabetes Headache History of uterine fibroid Hyperlipidemia Hypertension Hypokalemia Migraine (09/09/12) Nausea & vomiting Pancreatic duct stricture Pancreatitis, acute Panic attack (09/09/12) PMB (postmenopausal bleeding) Surgical History 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 Umanzor 07/10/2020 S/P surgical removal of pilonidal cyst Family History Sister Endometrial cancer Arthritis Celiac disease Hypertension Diabetes Mother Hypertension Congestive heart failure (CHF) Kidney failure Heart disease Father Parkinson disease Myocardial infarction Graves disease Skin cancer Denies family history of Ovarian cancer Prostate cancer Breast cancer Colorectal cancer Social History Smoking Status: Former smoker Tobacco Type: Cigarettes Age Started Using Tobacco: 21; Age Quit Using Tobacco: 58; packs per day: 1; Years Smoked: 37; Cigarettes Per Day: 2; Smoking End Date: 06/02/20; Number of Years Since Quit: 1; Second Hand Exposure: No; Hx Alcohol Use: No Hx Substance Use: No Preferred Language: Greenlandic Communication Ability: Effective Visual Impairment: No Limitations Hearing Ability: Normal Best Second Jobs Required: No Beliefs That Will Affect Care: None marital status: Current Living Situation: Family Current Living Situation Comment: sister current occupational status: disabled Other Information That Helps Us Care for You: No Feels Safe at Home: Yes Safety Concerns: Feels Safe At This Time Childhood Exposure to Second-Hand Smoke: No Dental Care, Regularly: No Physical Activity Frequency: Does not Exercise Seatbelt Use: always Sunscreen Use: Yes Assistive Devices: None Review of Systems A total of 10 systems reviewed and were otherwise negative Physical Exam Vital Signs Vital Signs - 24 hr 07/13/20 18:34 07/13/20 19:00 07/13/20 19:30 Pulse Rate 85 91 H Pulse Rate from SpO2 Sensor 88 86 Blood Pressure 172/101 H 153/94 H Blood Pressure Mean 124 113 Pulse Oximetry 98 99 07/13/20 20:04 07/13/20 20:05 Pulse Rate Pulse Rate from SpO2 Sensor 83 83 Blood Pressure 183/97 H Blood Pressure Mean 125 Pulse Oximetry 96 96 Constitutional WD/WN, vitals as above Eyes EOM intact bilaterally ENMT external ear and nose normal, oropharynx normal Neck trachea midline Respiratory normal respiratory effort, lungs clear to auscultation Cardiovascular RRR, no murmur, no edema Gastrointestinal (Abdomen) Tenderness palpation in the epigastric region. Bowel sounds present and all 4 quadrants. No guarding or rebound tenderness noted. Musculoskeletal no cyanosis or clubbing, extremities motor strength 5/5 Skin no rashes, warm and dry Neurologic Alert and oriented x3. No focal motor deficits. Psychiatric Acting appropriately Course Course Patient was seen and examined Vital signs including blood pressure were reviewed medications list was verified with patient Labs were obtained, and a saline lock was established The patient was medicated and hydrated. The case was discussed with my supervising physician. Imaging was performed and reviewed And the patient was reassessed. We discussed her findings. She voiced understanding. The case was discussed with my supervising physician who is in agreement with my plan The case was then discussed with the [facility] hospitalist group who kindly agreed to evaluate the patient for likely inpatient management. Consultations Consultation #1: Dr. Adames Administered Medications Atorvastatin Calcium (Atorvastatin 40 Mg Tab) 40 mg PO DAILY [facility] Stop: 08/13/20 08:59 Last Admin: 07/14/20 08:00 Dose: 40 mg Documented by: [id number] Azithromycin (Azithromycin 250 Mg Tab) 250 mg PO [facility]; Protocol Stop: 07/16/20 09:01 Last Admin: 07/14/20 11:11 Dose: 250 mg Documented by: [id number] Buspirone HCl (Buspirone 15 Mg Tab) 30 mg PO [facility] Stop: 08/12/20 22:21 Last Admin: 07/13/20 23:16 Dose: 30 mg Documented by: [id number] Chlorpromazine HCl (Chlorpromazine Hcl 10 Mg Tab) 10 mg PO HS NEELA Stop: 08/12/20 22:21 Last Admin: 07/13/20 23:16 Dose: 10 mg Documented by: [id number] Clonazepam (Clonazepam 0.25 Mg Tab) 0.25 mg PO BID PRN PRN Reason: Anxiety Stop: 08/12/20 22:21 Last Admin: 07/14/20 12:14 Dose: 0.25 mg Documented by: [id number] Docusate Sodium (Docusate Sodium 100 Mg Cap) 100 mg PO BID NEELA Stop: 08/12/20 22:21 Last Admin: 07/14/20 07:56 Dose: 100 mg Documented by: [id number] Admin: 07/13/20 23:15 Dose: 100 mg Documented by: [id number] Enoxaparin Sodium (Enoxaparin 150 Mg/Ml Syr) 127.5 mg SQ DAILY NEELA Stop: 08/13/20 08:59 Last Admin: 07/14/20 08:01 Dose: 127.5 mg Documented by: [id number] Fentanyl (Fentanyl 50 Mcg/Hr Tdsy) 50 mcg TD Q72H NEELA Stop: 07/27/20 22:29 Last Admin: 07/13/20 23:26 Dose: 50 mcg Documented by: [id number] Gabapentin (Gabapentin 800 Mg Tab) 800 mg PO TID NEELA Stop: 08/12/20 22:21 Last Admin: 07/14/20 13:25 Dose: 800 mg Documented by: [id number] Admin: 07/14/20 08:01 Dose: 800 mg Documented by: [id number] Admin: 07/13/20 23:15 Dose: 800 mg Documented by: [id number] Hydromorphone HCl (Hydromorphone Inj 1 Mg/Ml Syringe) 1 mg IV Q2H PRN PRN Reason: Severe Pain Stop: 07/27/20 22:21 Last Admin: 07/14/20 16:01 Dose: 1 mg Documented by: [id number] Admin: 07/14/20 14:03 Dose: 1 mg Documented by: [id number] Admin: 07/14/20 12:03 Dose: 1 mg Documented by: [id number] Admin: 07/14/20 10:08 Dose: 1 mg Documented by: [id number] Admin: 07/14/20 07:56 Dose: 1 mg Documented by: [id number] Admin: 07/14/20 05:23 Dose: 1 mg Documented by: [id number] Admin: 07/14/20 03:10 Dose: 1 mg Documented by: [id number] Admin: 07/14/20 00:45 Dose: 1 mg Documented by: [id number] Admin: 07/13/20 22:45 Dose: 1 mg Documented by: [id number] Potassium Chloride/Sodium Chloride (Normal Saline W/20 Meq Kcl) 20 meq in 1,000 mls @ 125 mls/hr IV .Q8H NEELA Stop: 08/12/20 22:21 Last Admin: 07/14/20 15:31 Dose: 125 mls/hr Documented by: [id number] Infusion: 07/14/20 15:31 Dose: 0 mls/hr Documented by: [id number] Infusion: 07/14/20 14:02 Dose: 125 mls/hr Documented by: [id number] Infusion: 07/14/20 13:24 Dose: 0 mls/hr Documented by: [id number] Admin: 07/14/20 06:58 Dose: 125 mls/hr Documented by: [id number] Infusion: 07/14/20 06:58 Dose: 125 mls/hr Documented by: [id number] Admin: 07/13/20 23:16 Dose: 125 mls/hr Documented by: [id number] Insulin Aspart (Insulin Aspart 100 Units/Ml 3 Ml Pen) 0 units SC ACHS NEELA Stop: 08/13/20 12:29 Last Admin: 07/14/20 14:27 Dose: Not Given Documented by: [id number] Cosigned by: [id number] Losartan Potassium (Losartan Potassium 25 Mg Tab) 25 mg PO HS NEELA Stop: 08/12/20 22:21 Last Admin: 07/13/20 23:15 Dose: 25 mg Documented by: [id number] Miscellaneous (Fentanyl Patch Remove & Waste) 1 ea N/A Q72H NEELA Stop: 08/12/20 22:28 Last Admin: 07/13/20 23:26 Dose: 1 ea Documented by: [id number] Cosigned by: [id number] Miscellaneous (Check Fentanyl Patch Placement) 1 ea N/A QS NEELA Stop: 08/13/20 07:59 Last Admin: 07/14/20 16:04 Dose: 1 ea Documented by: [id number] Admin: 07/14/20 07:58 Dose: 1 ea Documented by: [id number] Multivitamins (Multivitamin Tab) 1 tab PO QDD [facility] Stop: 08/13/20 16:29 Last Admin: 07/14/20 15:32 Dose: 1 tab Documented by: [id number] Oxybutynin Chloride (Oxybutynin Chloride Xl 5 Mg Tabcr) 10 mg PO HS [facility] Stop: 08/12/20 22:21 Last Admin: 07/13/20 23:16 Dose: 10 mg Documented by: [id number] Oxycodone HCl (Oxycodone Hcl Ir 5 Mg Tab (Immediate Release)) 10 mg PO Q4H PRN PRN Reason: Moderate Pain Stop: 07/27/20 22:21 Last Admin: 07/14/20 17:43 Dose: 10 mg Documented by: [id number] Pantoprazole Sodium (Pantoprazole 40 Mg Tab) 40 mg PO QAM [facility] Stop: 08/13/20 08:59 Last Admin: 07/14/20 07:59 Dose: 40 mg Documented by: [id number] Polyethylene Glycol (Polyethylene (Miralax) 17 Gm Pack) 17 gm PO BID [facility] Stop: 08/12/20 22:21 Last Admin: 07/14/20 08:05 Dose: 17 gm Documented by: [id number] Admin: 07/13/20 23:26 Dose: 17 gm Documented by: [id number] Sennosides (Senna 8.6 Mg Tab) 17.2 mg PO QAM [facility] Stop: 08/13/20 08:59 Last Admin: 07/14/20 08:07 Dose: 17.2 mg Documented by: [id number] Tizanidine HCl (Tizanidine Hcl 4 Mg Tablet) 4 mg PO QID PRN PRN Reason: muscle spasticity Stop: 08/12/20 22:21 Last Admin: 07/14/20 07:59 Dose: 4 mg Documented by: [id number] Venlafaxine HCl (Venlafaxine Hcl Xr 37.5 Mg Capxr) 37.5 mg PO QAM NEELA Stop: 08/13/20 08:59 Last Admin: 07/14/20 08:00 Dose: 37.5 mg Documented by: [id number] Venlafaxine HCl (Venlafaxine Hcl Xr 75 Mg Capxr) 75 mg PO QAM NEELA Stop: 08/13/20 08:59 Last Admin: 07/14/20 07:59 Dose: 75 mg Documented by: [id number] Discontinued Medications Ferrous Sulfate (Ferrous Sulfate 325 Mg Tab) 325 mg PO BID NEELA Stop: 08/12/20 22:21 Last Admin: 07/14/20 08:01 Dose: 325 mg Documented by: [id number] Admin: 07/13/20 23:15 Dose: 325 mg Documented by: [id number] Hydromorphone HCl (Hydromorphone Inj 0.5 Mg/0.5 Ml Syr) 0.5 mg IV NOW STA Stop: 07/13/20 17:24 Last Admin: 07/13/20 17:33 Dose: 0.5 mg Documented by: [id number] Hydromorphone HCl (Hydromorphone Inj 0.5 Mg/0.5 Ml Syr) 0.5 mg IV NOW STA Stop: 07/13/20 19:29 Last Admin: 07/13/20 20:05 Dose: 0.5 mg Documented by: [id number] Hydromorphone HCl (Hydromorphone Inj 1 Mg/Ml Syringe) 1 mg IV NOW STA Stop: 07/13/20 20:07 Last Admin: 07/13/20 22:25 Dose: Not Given Documented by: [id number] Sodium Chloride (Nss 1000ml) 1,000 mls @ 999 mls/hr IV .Q1H1M ONE Stop: 07/13/20 18:23 Last Infusion: 07/13/20 19:19 Dose: 0 mls/hr Documented by: [id number] Admin: 07/13/20 17:33 Dose: 999 mls/hr Documented by: [id number] Magnesium Sulfate/Dextrose (Magnesium Sulfate / D5w) 1 gm in 100 mls @ 50 mls/hr IV Q2H NEELA Stop: 07/14/20 16:29 Last Infusion: 07/14/20 17:44 Dose: 0 mls/hr Documented by: [id number] Admin: 07/14/20 15:31 Dose: 50 mls/hr Documented by: [id number] Infusion: 07/14/20 15:27 Dose: 0 mls/hr Documented by: [id number] Admin: 07/14/20 13:23 Dose: 50 mls/hr Documented by: [id number] Ioversol (Ioversol 100ml) 94 ml IV ONCE ONE Stop: 07/13/20 18:30 Last Admin: 07/13/20 18:30 Dose: 94 ml Documented by: [id number] Miscellaneous (Topiramate Er: Order Awaiting Action) 1 ea N/A QS NEELA Stop: 08/13/20 07:59 Last Admin: 07/14/20 10:19 Dose: Not Given Documented by: [id number] Ondansetron HCl (Ondansetron Inj 2 Mg/Ml 2 Ml Vial) 4 mg IV NOW STA Stop: 07/13/20 17:24 Last Admin: 07/13/20 17:33 Dose: 4 mg Documented by: [id number] Ondansetron HCl (Ondansetron Inj 2 Mg/Ml 2 Ml Vial) 4 mg IV NOW STA Stop: 07/13/20 19:29 Last Admin: 07/13/20 20:04 Dose: 4 mg Documented by: [id number] Potassium Chloride (Potassium Chloride Crtab 20 Meq Tabcr) 20 meq PO ONE ONE Stop: 07/14/20 10:01 Last Admin: 07/14/20 10:18 Dose: 20 meq Documented by: [id number] Topiramate (Topiramate 100 Mg Tab) 100 mg PO NOW ONE; Protocol Stop: 07/14/20 10:16 Last Admin: 07/14/20 13:22 Dose: 100 mg Documented by: [id number] Medical Decision Making Medical Records Attestation: I reviewed the patient's medical records. Home Medications Current Medication List: was personally reviewed by me Laboratory Data Attestation: I reviewed the patient's lab results. Result diagrams: 07/13/20 17:11 07/14/20 09:49 Lab Results 07/13/20 07/13/20 07/13/20 Range/Units 17:11 17:11 17:11 WBC 7.44 (4.8-10.8) K/uL RBC 4.92 (4.2-5.4) M/uL Hgb 14.1 (12.0-16.0) g/dL Hct 40.5 (37-47) % MCV 82.3 (80-100) fL MCH 28.7 (25-34) pg MCHC 34.8 (32-36) g/dL RDW Std Deviation 42.3 (36.4-46.3) fL RDW Coeff of Natali 14.1 (11.5-14.5) % Plt Count 241 (130-400) K/uL MPV 10.7 H (7.4-10.4) fL Immature Gran % (Auto) 0.3 % Neut % (Auto) 69.9 % Lymph % (Auto) 20.6 % Calloway % (Auto) 7.9 % Eos % (Auto) 0.9 % Baso % (Auto) 0.4 % Neut # (Auto) 5.20 (1.4-6.5) K/uL Lymph # (Auto) 1.53 (1.2-3.4) K/uL Calloway # (Auto) 0.59 (0.11-0.59) K/uL Eos # (Auto) 0.07 (0-0.5) K/uL Baso # (Auto) 0.03 (0-0.2) K/uL Immature Gran # (Auto) 0.02 (0.00-0.02) K/uL PT 10.4 (9.0-12.0) Seconds INR 1.0 (0.9-1.1) Sodium 137 (136-145) mmol/L Potassium 3.0 L (3.5-5.1) mmol/L Chloride 106 (98-107) mmol/L Carbon Dioxide 23 (21-32) mmol/L Anion Gap 8.0 (3-11) BUN 7 (7-18) mg/dl Creatinine 0.73 (0.6-1.2) mg/dl Est Cr Clr Drug Dosing 89.3 ml/min Est GFR ( Amer) 104.5 Est GFR (Non-Af Amer) 90.1 BUN/Creatinine Ratio 9.7 L (10-20) Glucose 124 H (70-99) mg/dl Calcium 9.1 (8.5-10.1) mg/dl Phosphorus 3.1 (2.5-4.9) mg/dl Magnesium 1.8 (1.8-2.4) mg/dl Total Bilirubin 0.4 (0.2-1) mg/dl AST 15 (15-37) U/L ALT 27 (12-78) U/L Alkaline Phosphatase 93 (45-117) U/L Ammonia (11-32) umol/L Troponin I < 0.015 (0-0.045) ng/ml Total Protein 7.7 (6.4-8.2) gm/dl Albumin 4.5 (3.4-5.0) gm/dl Globulin 3.2 (2.5-4.0) gm/dl Albumin/Globulin Ratio 1.4 (0.9-2) Urine Color Urine Appearance (Clear) Urine pH (4.5-7.5) Ur Specific Hatley (1.000-1.030) Urine Protein (Negative) Urine Glucose (UA) (Negative) Urine Ketones (Negative) Urine Blood (Negative) Urine Nitrite (Negative) Urine Bilirubin (Negative) Urine Urobilinogen (Negative) Ur Leukocyte Esterase (Negative) Urine WBC (Auto) (0-5) /hpf Urine RBC (Auto) (0-4) /hpf U Hyaline Cast (Auto) (0-5) /lpf U Epithel Cells (Auto) (0-5) /lpf Urine Bacteria (Auto) (Negative) COVID-19 Eval Order SARS-CoV-2 (PCR) (Negative) Influenza Type A (PCR) (Neg) Influenza Type B (PCR) (Neg) RSV (RT-PCR) (Neg) 07/13/20 07/13/20 07/13/20 Range/Units 17:37 17:49 17:49 WBC (4.8-10.8) K/uL RBC (4.2-5.4) M/uL Hgb (12.0-16.0) g/dL Hct (37-47) % MCV (80-100) fL MCH (25-34) pg MCHC (32-36) g/dL RDW Std Deviation (36.4-46.3) fL RDW Coeff of Natali (11.5-14.5) % Plt Count (130-400) K/uL MPV (7.4-10.4) fL Immature Gran % (Auto) % Neut % (Auto) % Lymph % (Auto) % Calloway % (Auto) % Eos % (Auto) % Baso % (Auto) % Neut # (Auto) (1.4-6.5) K/uL Lymph # (Auto) (1.2-3.4) K/uL Calloway # (Auto) (0.11-0.59) K/uL Eos # (Auto) (0-0.5) K/uL Baso # (Auto) (0-0.2) K/uL Immature Gran # (Auto) (0.00-0.02) K/uL PT (9.0-12.0) Seconds INR (0.9-1.1) Sodium (136-145) mmol/L Potassium (3.5-5.1) mmol/L Chloride (98-107) mmol/L Carbon Dioxide (21-32) mmol/L Anion Gap (3-11) BUN (7-18) mg/dl Creatinine (0.6-1.2) mg/dl Est Cr Clr Drug Dosing ml/min Est GFR ( Amer) Est GFR (Non-Af Amer) BUN/Creatinine Ratio (10-20) Glucose (70-99) mg/dl Calcium (8.5-10.1) mg/dl Phosphorus (2.5-4.9) mg/dl Magnesium (1.8-2.4) mg/dl Total Bilirubin (0.2-1) mg/dl AST (15-37) U/L ALT (12-78) U/L Alkaline Phosphatase (45-117) U/L Ammonia 12.0 (11-32) umol/L Troponin I (0-0.045) ng/ml Total Protein (6.4-8.2) gm/dl Albumin (3.4-5.0) gm/dl Globulin (2.5-4.0) gm/dl Albumin/Globulin Ratio (0.9-2) Urine Color Urine Appearance (Clear) Urine pH (4.5-7.5) Ur Specific Hatley (1.000-1.030) Urine Protein (Negative) Urine Glucose (UA) (Negative) Urine Ketones (Negative) Urine Blood (Negative) Urine Nitrite (Negative) Urine Bilirubin (Negative) Urine Urobilinogen (Negative) Ur Leukocyte Esterase (Negative) Urine WBC (Auto) (0-5) /hpf Urine RBC (Auto) (0-4) /hpf U Hyaline Cast (Auto) (0-5) /lpf U Epithel Cells (Auto) (0-5) /lpf Urine Bacteria (Auto) (Negative) COVID-19 Eval Order CovFluRsv at [facility] SARS-CoV-2 (PCR) NEGATIVE (Negative) Influenza Type A (PCR) Negative (Neg) Influenza Type B (PCR) Negative (Neg) RSV (RT-PCR) Negative (Neg) 07/13/20 Range/Units 18:50 WBC (4.8-10.8) K/uL RBC (4.2-5.4) M/uL Hgb (12.0-16.0) g/dL Hct (37-47) % MCV (80-100) fL MCH (25-34) pg MCHC (32-36) g/dL RDW Std Deviation (36.4-46.3) fL RDW Coeff of Natali (11.5-14.5) % Plt Count (130-400) K/uL MPV (7.4-10.4) fL Immature Gran % (Auto) % Neut % (Auto) % Lymph % (Auto) % Calloway % (Auto) % Eos % (Auto) % Baso % (Auto) % Neut # (Auto) (1.4-6.5) K/uL Lymph # (Auto) (1.2-3.4) K/uL Calloway # (Auto) (0.11-0.59) K/uL Eos # (Auto) (0-0.5) K/uL Baso # (Auto) (0-0.2) K/uL Immature Gran # (Auto) (0.00-0.02) K/uL PT (9.0-12.0) Seconds INR (0.9-1.1) Sodium (136-145) mmol/L Potassium (3.5-5.1) mmol/L Chloride (98-107) mmol/L Carbon Dioxide (21-32) mmol/L Anion Gap (3-11) BUN (7-18) mg/dl Creatinine (0.6-1.2) mg/dl Est Cr Clr Drug Dosing ml/min Est GFR ( Amer) Est GFR (Non-Af Amer) BUN/Creatinine Ratio (10-20) Glucose (70-99) mg/dl Calcium (8.5-10.1) mg/dl Phosphorus (2.5-4.9) mg/dl Magnesium (1.8-2.4) mg/dl Total Bilirubin (0.2-1) mg/dl AST (15-37) U/L ALT (12-78) U/L Alkaline Phosphatase (45-117) U/L Ammonia (11-32) umol/L Troponin I (0-0.045) ng/ml Total Protein (6.4-8.2) gm/dl Albumin (3.4-5.0) gm/dl Globulin (2.5-4.0) gm/dl Albumin/Globulin Ratio (0.9-2) Urine Color Yellow Urine Appearance Turbid A (Clear) Urine pH 7.0 (4.5-7.5) Ur Specific Hatley 1.018 (1.000-1.030) Urine Protein Trace H (Negative) Urine Glucose (UA) Negative (Negative) Urine Ketones 1+ H (Negative) Urine Blood Negative (Negative) Urine Nitrite Negative (Negative) Urine Bilirubin Negative (Negative) Urine Urobilinogen Negative (Negative) Ur Leukocyte Esterase Trace H (Negative) Urine WBC (Auto) 1-5 (0-5) /hpf Urine RBC (Auto) 0-4 (0-4) /hpf U Hyaline Cast (Auto) 1-5 (0-5) /lpf U Epithel Cells (Auto) 20-30 H (0-5) /lpf Urine Bacteria (Auto) Negative (Negative) COVID-19 Eval Order SARS-CoV-2 (PCR) (Negative) Influenza Type A (PCR) (Neg) Influenza Type B (PCR) (Neg) RSV (RT-PCR) (Neg) Imaging Data Attestation: I personally reviewed and interpreted this imaging study as follows: Radiologist's Impression: CT head without contrast Impression: No acute intracranial abnormality. ACT 112: Negative or not required by law. Electronically signed by: Joshua Jacobo M.D. 07/13/2020 6:38 PM Dictated: 07/13/201832 Transcribed: 07/13/201832 CT abdomen pelvis with IV contrast 1. Redemonstration of a 4.5 cm ill-defined pancreatic head mass 2. Interval development of focal occlusion of a proximal branch of the superior mesenteric vein adjacent to the pancreatic head mass. This is likely due to tumor infiltration. The mid to distal branches of the superior mesenteric vein remain patent. 3. Stable hepatic lesions as described above. 4. No evidence of bowel obstruction. No evidence of free air 5. No evidence of acute appendicitis. No evidence of acute diverticulitis. ACT 112: Negative or not required by law. Electronically signed by: Joshua Jacobo M.D. 07/13/2020 7:27 PM Dictated: 07/13/201909 Transcribed: 07/13/201909 Chest x-ray IMPRESSION: No significant change compared to the prior study. No acute process. ACT 112: Negative or not required by law. Electronically signed by: Joshua Jacobo M.D. 07/13/2020 5:59 PM Dictated: 07/13/201757 Transcribed: 07/13/201757 ECG Data Attestation: I personally reviewed and interpreted this ECG as follows: Rate (beats per minute): 66 Rhythm: + normal sinus Additional Comments: No ST depression or elevation noted. No change when compared to prior EKG MDM Narrative Differential diagnosis: Pancreatic cancer, chronic pain, metastatic disease, electrolyte abnormality, anemia, This patient is a pleasant 60-year-old female who presents emergency department with complaints of ongoing nausea and severe epigastric abdominal pain. She has a history of pancreatic cancer. She was recently discharged from the hospital. On exam, her vital signs were stable, she was tender in the epigastric region and nauseated. Work-up was performed. There is no leukocytosis. Potassium is slightly low. Unfortunately, after several rounds of pain medication and antiemetics, she was still uncomfortable and nauseated. For this reason, it was felt that evaluation for inpatient management was warranted. The hospitalist team will evaluate her for likely admission Impression & Plan Intractable abdominal pain, Pancreatic cancer, Intractable vomiting Discharge Plan Visit Data Chief Complaint: Abdominal Pain Stated Complaint: ABDOMINAL PAIN - DISCHARGED FROM [facility] 07/12 ED Provider: Nabeel Ramos ED Midlevel Provider: Dejah Wagner Discharge Problem: Intractable abdominal pain, Pancreatic cancer, Intractable vomiting Patient Disposition: Admitted As Inpatient Discharge Instructions Interventions: ED Discharge Assessment Last Done: 07/13/20 21:11
[2020-07-13 18:35] LABS: Influenza A virus by PCR Negative (Neg); Influenza B virus by PCR Negative (Neg); RSV by PCR Negative (Neg); SARS CoV2 RNA(COVID-19) InHosp NEGATIVE (Negative)
--- NOTE | 2020-07-13 18:40 | CT Scan Report ---
HEAD CT NONCONTRAST CT DOSE: 729.78 mGycm HISTORY: Confusion. TECHNIQUE: Multiaxial CT images of the head were performed without the use of intravenous contrast. A utomated exposure control was utilized for this study. A dose lowering technique was utilized adheri ng to the principles of ALARA. Comparison: None. Findings: The paranasal sinuses and mastoid air cells are clear. The calvarium and skull base are int act. The ventricles and sulci are within normal limits. There is no mass, hematoma, midline shift, or acute infarct. Stable mild white matter hypodensity. This favors microvascular ischemic change. Impression: No acute intracranial abnormality. ACT 112: Negative or not required by law. Electronically signed by: Joshua Jacobo M.D. 07/13/2020 6:38 PM
[2020-07-13 19:11] LABS: Appearance Urine Turbid (Clear); Bacteria Urine Automated Negative (Negative); Bilirubin Urine Negative (Negative); Blood Urine Negative (Negative); Color Urine Yellow; Epithelial Cell Urine Auto 20-30 /lpf (0-5); Glucose Urine UA Negative (Negative); Ketones Urine 1+ (Negative); Leukocyte Esterase Urine Trace (Negative); Nitrite Urine Negative (Negative); Protein Urine Trace (Negative); RBC Urine Automated 0-4 /hpf (0-4); Specific Gravity Urine 1.018 (1.000-1.030); Urobilinogen Urine Negative (Negative)
--- NOTE | 2020-07-13 19:28 | CT Scan Report ---
ABDOMEN AND PELVIS CT WITH IV CONTRAST CT DOSE: 1054.83 mGycm HISTORY: epigastric pain hx pancreatic ca TECHNIQUE: Multiaxial CT images of the abdomen and pelvis were performed following the use of intrave nous contrast. A dose lowering technique was utilized adhering to the principles of ALARA. COMPARISON STUDY: Abdomen and pelvis CT 07/08/2020. FINDINGS: Lower chest: There is elevation of the left hemidiaphragm. Stable right lung pulmonary nodules are ag ain noted. Liver: Stable hepatic lesions with the largest in the right hepatic lobe measuring 3.7 cm. These are consistent with a combination of hemangiomas and focal fat as seen on the prior MRI. Gallbladder: Not visualized presumed surgically absent Spleen: There is stable 33 mm hypodense splenic lesion. Pancreas: There is pancreatic ductal dilatation. There is a heterogeneous 4.5 cm ill-defined pancreat ic head mass. There is a loss of the normal fat plane between the pancreas and duodenum. Adrenal glands: Unremarkable. Kidneys: There is symmetric renal cortical enhancement. The kidneys are normal in size without hydron ephrosis. There are few left renal calculi, unchanged. Bowel: There are no transition zones indicate bowel obstruction. There is no evidence of acute divert iculitis. There is no evidence of acute appendicitis. Peritoneum: There is no intraperitoneal free air or abdominal ascites. Vasculature: The abdominal aorta is normal in course and caliber. There is hazy infiltration surround ing the superior mesenteric artery. Interval development of focal occlusion of a proximal branch of t he superior mesenteric vein adjacent to the pancreatic head mass. This is likely due to tumor infiltr ation. The mid to distal branches of the superior mesenteric vein remain patent. Adenopathy: There are borderline enlarged peripancreatic lymph nodes Pelvic viscera: The bladder, and pelvic viscera are unremarkable. Skeletal structures: No destructive osseous lesions are seen. IMPRESSION: 1. Redemonstration of a 4.5 cm ill-defined pancreatic head mass 2. Interval development of focal occlusion of a proximal branch of the superior mesenteric vein adjac ent to the pancreatic head mass. This is likely due to tumor infiltration. The mid to distal branches of the superior mesenteric vein remain patent. 3. Stable hepatic lesions as described above. 4. No evidence of bowel obstruction. No evidence of free air 5. No evidence of acute appendicitis. No evidence of acute diverticulitis. ACT 112: Negative or not required by law. Electronically signed by: Joshua Jacobo M.D. 07/13/2020 7:27 PM
[2020-07-13] MEDS ORDERED: HYDROmorphone INJ 1 MG/ML SYRINGE IV STA (20:06)
--- NOTE | 2020-07-13 20:21 | History & Physical Report ---
Date of Service July 13, 2020 Assessment & Plan (1) Cancer associated pain: Pancreatic cancer associated pain/status post celiac plexus block on July 11- Admit to medical surgical floor for pain control. Increase fentanyl patch from 25 to 50 mcg change every 3 days. Dilaudid 0.5 mg IV did not touch her pain, and with effort increased to 1 mg IV every 3 hours as needed severe pain. Oxycodone 5 mg p.o. every 4 hours as needed moderate pain Did have a palliative care consult last admission Was seen by pain management for celiac plexus block last admission Present on Admission?: Yes (2) Pancreatic cancer: See above Full liquid diet as tolerated Present on Admission?: Yes (3) Superior mesenteric vein thrombosis: Unchanged. Continue enoxaparin 127.5 mg subcu daily Present on Admission?: Yes (4) Hypokalemia: Potassium 3.0 upon admission Placed on NSS + KCl 20 mEq at high 25 mils per hour. Repeat laboratories in a.m. Present on Admission?: Yes History of Present Illness Chief Complaint: The patient presents to the emergency department with complaint of worsening abdominal pain, nausea and vomiting Primary Care Provider: Brent Dye III, CATAR[place] The patient is a 60-year-old female with a past medical history including multiple pulmonary nodules, anorexia, pancreatic cancer, supratherapeutic INR, upper GI bleed, pancreatic mass, cancer associated pain, acute pancreatitis, superior mesenteric vein thrombosis, pancreatic duct stricture, superior mesenteric artery thrombosis, liver nodule, chronic migraine, restless leg syndrome, bladder hyperactivity, dismetabolic syndrome X, depression with anxiety, diabetes, hypertension and hyperlipidemia. She has missed most recently admitted to [facility] from 07/08-07/12 with diagnosis of the pancreatic cancer, associate with severe abdominal pain, and received a celiac plexus block on 07/11. She was discharged on fentanyl patch 25 mcg change every 3 days and oxycodone 5 mg every 4 hours as needed breakthrough pain, and had to return to the ED due to uncontrolled pain, nausea and vomiting. Allergies Allergy/AdvReac Type Severity Reaction Status Date / Time latex Allergy Intermediate rash Verified 07/13/20 18:29 sulfamethoxazole Allergy Intermediate itching, Verified 07/13/20 18:29 chest tightness trimethoprim Allergy Intermediate itching, Verified 07/13/20 18:29 chest tightness adhesive Allergy Unknown ITCHY SKIN Verified 07/13/20 18:29 clindamycin AdvReac Severe Diarrhea Verified 07/13/20 18:29 doxycycline AdvReac Intermediate nausea and Verified 07/13/20 18:29 vomiting Home Medications Medication Instructions Recorded Confirmed Type multivitamin 1 tab PO QDD 10/26/18 07/13/20 History atorvastatin 40 mg tablet 40 mg PO DAILY #30 tab 06/20/19 07/13/20 Rx clonazepam 0.5 mg tablet 0.25 mg PO HS PRN tab 01/04/20 07/13/20 History galcanezumab-gnlm 120 mg/mL 120 mg SQ MONTHLY 30 Days #1 ml 01/04/20 07/13/20 Rx subcutaneous pen injector sumatriptan succinate 6 mg/0.5 mL 6 mg SUBCUT .COMPLEX PRN #1 ml 03/18/20 07/13/20 Rx subcutaneous pen injector gabapentin 800 mg tablet 800 mg PO TID #90 tab 04/10/20 07/13/20 Rx topiramate 100 mg capsule 100 mg PO DAILY 90 Days #90 ea 04/10/20 07/13/20 Rx sprinkle,extended release 24 hr buspirone 30 mg PO HS 04/16/20 07/13/20 History chlorpromazine 10 mg PO HS 04/16/20 07/13/20 History promethazine 25 mg tablet 25 mg PO BID PRN #60 tab 04/25/20 07/13/20 Rx tizanidine 4 mg tablet 4 mg PO QID PRN #90 tab 05/01/20 07/13/20 Rx docusate sodium 100 mg PO BID #20 cap 05/15/20 07/13/20 Rx pantoprazole 40 mg PO QAM 30 Days #30 tab 05/15/20 07/13/20 Rx venlafaxine 75 mg capsule,extended 37.5 mg PO QAM cap 05/22/20 07/13/20 History release 24 hr ferrous sulfate 325 mg (65 mg 325 mg PO BID #60 tab 05/23/20 07/13/20 Rx iron) tablet,delayed release acetaminophen [Tylenol Extra 1,000 mg PO DIRECTED PRN 06/12/20 07/13/20 History Strength] diphenhydramine HCl [Benadryl] 25 mg PO Q6H PRN 06/12/20 07/13/20 History naloxone 4 mg/actuation nasal spray 4 mg INTRANASAL Q2M PRN #2 ea 06/24/20 07/13/20 Rx rizatriptan 10 mg tablet 10 mg PO .COMPLEX PRN 90 Days #27 06/24/20 07/13/20 Rx tab ergocalciferol (vitamin D2) 50,000 unit PO FR 07/08/20 07/13/20 History [Vitamin D2] losartan 25 mg PO HS 07/08/20 07/13/20 History oxybutynin chloride 10 mg PO HS 07/08/20 07/13/20 History venlafaxine 75 mg PO QAM 07/08/20 07/13/20 History azithromycin 250 mg PO DAILY 3 Days #3 tab 07/12/20 07/13/20 Rx docusate sodium 100 mg PO BID #60 cap 07/12/20 07/13/20 Rx enoxaparin 127.5 mg SUBCUT DAILY #10 ml 07/12/20 07/13/20 Rx fentanyl 1 patch TRANSDERMAL Q72H #2 ea 07/12/20 07/13/20 Rx metformin 1,000 mg PO HS #60 tab 07/12/20 07/13/20 Rx oxycodone 5 mg PO Q4H PRN #20 tab 07/12/20 07/13/20 Rx polyethylene glycol 3350 [Miralax] 17 g PO BID #30 ea 07/12/20 07/13/20 Rx sennosides [Senokot] 17.2 mg PO QAM #30 tab 07/12/20 07/13/20 Rx Past Med/Surg History Medical History Abdominal pain Acute pancreatitis Depression (09/09/12) Diabetes Headache History of uterine fibroid Hyperlipidemia Hypertension Hypokalemia Migraine (09/09/12) Nausea & vomiting Pancreatic duct stricture Pancreatitis, acute Panic attack (09/09/12) PMB (postmenopausal bleeding) Surgical History 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 Umanzor 07/10/2020 S/P surgical removal of pilonidal cyst Family History Sister Endometrial cancer Arthritis Celiac disease Hypertension Diabetes Mother Hypertension Congestive heart failure (CHF) Kidney failure Heart disease Father Parkinson disease Myocardial infarction Graves disease Skin cancer Denies family history of Ovarian cancer Prostate cancer Breast cancer Colorectal cancer Social History Smoking Status: Former smoker Tobacco Type: Cigarettes Age Started Using Tobacco: 21; Age Quit Using Tobacco: 58; packs per day: 1; Years Smoked: 37; Cigarettes Per Day: 2; Smoking End Date: 06/02/20; Number of Years Since Quit: 1; Second Hand Exposure: No; Hx Alcohol Use: No Hx Substance Use: No Preferred Language: Irish Communication Ability: Effective Visual Impairment: No Limitations Hearing Ability: Normal 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 Beliefs That Will Affect Care: None marital status: Current Living Situation: Family Current Living Situation Comment: sister current occupational status: disabled Other Information That Helps Us Care for You: No Feels Safe at Home: Yes Safety Concerns: Feels Safe At This Time Childhood Exposure to Second-Hand Smoke: No Dental Care, Regularly: No Physical Activity Frequency: Does not Exercise Seatbelt Use: always Sunscreen Use: Yes Assistive Devices: Glasses Review of Systems Review of Systems: The patient denies chest pain, palpitations, shortness of breath, dyspnea on exertion, cough, lower extremity swelling, sore throat, fevers, chills, sweats, blood in urine or stool, dysuria, urinary frequency or urgency, lightheadedness, dizziness, headache, memory loss, loss of consciousness, rash, abnormal bruising or bleeding, imbalance, focal or generalized weakness, numbness or tingling in arms or legs, back or neck pain, or night sweats. The review of systems is otherwise negative other than for that already noted above, and at least 10 systems have been reviewed. Physical Exam Physical Exam: The patient is awake, alert and oriented 3, normocephalic and atraumatic, sitting upright in bed, and rocking with a xemb-[id number]-[id number] motion due to the pain HEENT--PERRL, EOMI, mucous membranes and oropharynx dry. Neck--supple. No JVD. No bruits. Thyroid normal, trachea midline, no adenopathy. Heart--normal S1 and S2. No murmurs, rubs or gallops. Lungs--clear bilaterally, no respiratory distress, no accessory muscle use. Abdomen--normal bowel sounds and soft. Generalized abdominal pain Extremities--no cyanosis or clubbing. No edema. Dermatologic--normal skin turgor, normal color, no abnormal lymph nodes, no rash. Neurologic--cranial nerves II through XII grossly intact. Rheumatologic--limited exam Psychiatric--normal affect. Results & Data Results & Data ([facility]) Vital Signs (Past 12 Hours) Vital Signs Temp Pulse Resp BP Pulse Ox 07/13/20 20:05 96 07/13/20 20:04 183/97 H 96 07/13/20 19:30 91 H 07/13/20 19:00 85 153/94 H 99 07/13/20 18:34 172/101 H 98 07/13/20 18:01 92 H 180/112 H 99 07/13/20 17:31 205/123 H 97 07/13/20 15:04 97.2 F L 106 H 20 147/100 H 99 Laboratory Results Laboratory Results WBC 7.44 K/uL (4.8-10.8) 07/13/20 17:11 RBC 4.92 M/uL (4.2-5.4) 07/13/20 17:11 Hgb 14.1 g/dL (12.0-16.0) 07/13/20 17:11 Hct 40.5 % (37-47) 07/13/20 17:11 MCV 82.3 fL (80-100) 07/13/20 17:11 MCH 28.7 pg (25-34) 07/13/20 17:11 MCHC 34.8 g/dL (32-36) 07/13/20 17:11 RDW Std Deviation 42.3 fL (36.4-46.3) 07/13/20 17:11 RDW Coeff of Natali 14.1 % (11.5-14.5) 07/13/20 17:11 Plt Count 241 K/uL (130-400) 07/13/20 17:11 MPV 10.7 fL (7.4-10.4) H 07/13/20 17:11 Immature Gran % (Auto) 0.3 % 07/13/20 17:11 Neut % (Auto) 69.9 % 07/13/20 17:11 Lymph % (Auto) 20.6 % 07/13/20 17:11 [place] % (Auto) 7.9 % 07/13/20 17:11 Eos % (Auto) 0.9 % 07/13/20 17:11 Baso % (Auto) 0.4 % 07/13/20 17:11 Neut # (Auto) 5.20 K/uL (1.4-6.5) 07/13/20 17:11 Lymph # (Auto) 1.53 K/uL (1.2-3.4) 07/13/20 17:11 [place] # (Auto) 0.59 K/uL (0.11-0.59) 07/13/20 17:11 Eos # (Auto) 0.07 K/uL (0-0.5) 07/13/20 17:11 Baso # (Auto) 0.03 K/uL (0-0.2) 07/13/20 17:11 Immature Gran # (Auto) 0.02 K/uL (0.00-0.02) 07/13/20 17:11 PT 10.4 Seconds (9.0-12.0) 07/13/20 17:11 INR 1.0 (0.9-1.1) 07/13/20 17:11 Sodium 137 mmol/L (136-145) 07/13/20 17:11 Potassium 3.0 mmol/L (3.5-5.1) L 07/13/20 17:11 Chloride 106 mmol/L (98-107) 07/13/20 17:11 Carbon Dioxide 23 mmol/L (21-32) 07/13/20 17:11 Anion Gap 8.0 (3-11) 07/13/20 17:11 BUN 7 mg/dl (7-18) 07/13/20 17:11 Creatinine 0.73 mg/dl (0.6-1.2) 07/13/20 17:11 Est Cr Clr Drug Dosing 89.3 ml/min 07/13/20 17:11 Est GFR ( Amer) 104.5 07/13/20 17:11 Est GFR (Non-Af Amer) 90.1 07/13/20 17:11 BUN/Creatinine Ratio 9.7 (10-20) L 07/13/20 17:11 Glucose 124 mg/dl (70-99) H 07/13/20 17:11 Calcium 9.1 mg/dl (8.5-10.1) 07/13/20 17:11 Phosphorus 3.1 mg/dl (2.5-4.9) 07/13/20 17:11 Magnesium 1.8 mg/dl (1.8-2.4) 07/13/20 17:11 Total Bilirubin 0.4 mg/dl (0.2-1) 07/13/20 17:11 AST 15 U/L (15-37) 07/13/20 17:11 ALT 27 U/L (12-78) 07/13/20 17:11 Alkaline Phosphatase 93 U/L (45-117) 07/13/20 17:11 Ammonia 12.0 umol/L (11-32) 07/13/20 17:37 Troponin I < 0.015 ng/ml (0-0.045) 07/13/20 17:11 Total Protein 7.7 gm/dl (6.4-8.2) 07/13/20 17:11 Albumin 4.5 gm/dl (3.4-5.0) 07/13/20 17:11 Globulin 3.2 gm/dl (2.5-4.0) 07/13/20 17:11 Albumin/Globulin Ratio 1.4 (0.9-2) 07/13/20 17:11 Urine Color Yellow 07/13/20 18:50 Urine Appearance Turbid (Clear) A 07/13/20 18:50 Urine pH 7.0 (4.5-7.5) 07/13/20 18:50 Ur Specific Connelly 1.018 (1.000-1.030) 07/13/20 18:50 Urine Protein Trace (Negative) H 07/13/20 18:50 Urine Glucose (UA) Negative (Negative) 07/13/20 18:50 Urine Ketones 1+ (Negative) H 07/13/20 18:50 Urine Blood Negative (Negative) 07/13/20 18:50 Urine Nitrite Negative (Negative) 07/13/20 18:50 Urine Bilirubin Negative (Negative) 07/13/20 18:50 Urine Urobilinogen Negative (Negative) 07/13/20 18:50 Ur Leukocyte Esterase Trace (Negative) H 07/13/20 18:50 Urine WBC (Auto) 1-5 /hpf (0-5) 07/13/20 18:50 Urine RBC (Auto) 0-4 /hpf (0-4) 07/13/20 18:50 U Hyaline Cast (Auto) 1-5 /lpf (0-5) 07/13/20 18:50 U Epithel Cells (Auto) 20-30 /lpf (0-5) H 07/13/20 18:50 Urine Bacteria (Auto) Negative (Negative) 07/13/20 18:50 COVID-19 Eval Order CovFluRsv at [facility] 07/13/20 17:49 SARS-CoV-2 (PCR) NEGATIVE (Negative) 07/13/20 17:49 Influenza Type A (PCR) Negative (Neg) 07/13/20 17:49 Influenza Type B (PCR) Negative (Neg) 07/13/20 17:49 RSV (RT-PCR) Negative (Neg) 07/13/20 17:49 Diagnostic Findings [facility], [id number] CT Scan Report Patient: GWENDOLYN CHAVEZAdmit Date: 07/13/20MR#: [id number]: [address] LNAcct ID:[id number]: Date: 1960ity Zip: [place], [place] [address]Eai: 60Location: EDSex: FRoom/Bed:Att Phy:Diagnosis: ABDOMINAL PAIN - DISCHARGED FROM [facility] 07/12Pri Phy: Brent Dye, III, CRNPService Date: 07/13/20Fam Phy:Interpreting Phy: Joshua Jacobo MDAdmit Phy: Ordering Phy: Dejah Wagner PA-C cc: ~ HEAD CT NONCONTRAST CT DOSE: 729.78 mGycm HISTORY: Confusion. TECHNIQUE: Multiaxial CT images of the head were performed without the use of intravenous contrast. Automated exposure control was utilized for this study. A dose lowering technique was utilized adhering to the principles of ALARA. Comparison: None. Findings: The paranasal sinuses and mastoid air cells are clear. The calvarium and skull base are intact. The ventricles and sulci are within normal limits. There is no mass, hematoma, midline shift, or acute infarct. Stable mild white matter hypodensity. This favors microvascular ischemic change. Impression: No acute intracranial abnormality. ACT 112: Negative or not required by law. Electronically signed by: Joshua Jacobo M.D. 07/13/2020 6:38 PM Dictated: 07/13/201832Transcribed: 07/13/201832 [facility], [id number] CT Scan Report Patient: GWENDOLYN CHAVEZAdmit Date: 07/13/20MR#: [id number]: [address] [facility][id number]: Date: 1960[facility] Zip: [place], [place] [address]Nlu: 60Location: EDSex: FRoom/Bed:Att Phy:Diagnosis: ABDOMINAL PAIN - DISCHARGED FROM [facility] 07/12Pri Phy: Brent Dye, III, CRNPService Date: 07/13/20Fam Phy:Interpreting Phy: Joshua Jacobo MDAdmit Phy: Ordering Phy: Dejah Wagner PA-C cc: ~ ABDOMEN AND PELVIS CT WITH IV CONTRAST CT DOSE: 1054.83 mGycm HISTORY: epigastric pain hx pancreatic ca TECHNIQUE: Multiaxial CT images of the abdomen and pelvis were performed following the use of intravenous contrast. A dose lowering technique was utilized adhering to the principles of ALARA. COMPARISON STUDY: Abdomen and pelvis CT 07/08/2020. FINDINGS: Lower chest: There is elevation of the left hemidiaphragm. Stable right lung pulmonary nodules are again noted. Liver: Stable hepatic lesions with the largest in the right hepatic lobe measuring 3.7 cm. These are consistent with a combination of hemangiomas and focal fat as seen on the prior MRI. Gallbladder: Not visualized presumed surgically absent Spleen: There is stable 33 mm hypodense splenic lesion. Pancreas: There is pancreatic ductal dilatation. There is a heterogeneous 4.5 cm ill-defined pancreatic head mass. There is a loss of the normal fat plane between the pancreas and duodenum. Adrenal glands: Unremarkable. Kidneys: There is symmetric renal cortical enhancement. The kidneys are normal in size without hydronephrosis. There are few left renal calculi, unchanged. Bowel: There are no transition zones indicate bowel obstruction. There is no evidence of acute diverticulitis. There is no evidence of acute appendicitis. Peritoneum: There is no intraperitoneal free air or abdominal ascites. Vasculature: The abdominal aorta is normal in course and caliber. There is hazy infiltration surrounding the superior mesenteric artery. Interval development of focal occlusion of a proximal branch of the superior mesenteric vein adjacent to the pancreatic head mass. This is likely due to tumor infiltration. The mid to distal branches of the superior mesenteric vein remain patent. Adenopathy: There are borderline enlarged peripancreatic lymph nodes Pelvic viscera: The bladder, and pelvic viscera are unremarkable. Skeletal structures: No destructive osseous lesions are seen. IMPRESSION: 1. Redemonstration of a 4.5 cm ill-defined pancreatic head mass 2. Interval development of focal occlusion of a proximal branch of the superior mesenteric vein adjacent to the pancreatic head mass. This is likely due to tumor infiltration. The mid to distal branches of the superior mesenteric vein remain patent. 3. Stable hepatic lesions as described above. 4. No evidence of bowel obstruction. No evidence of free air 5. No evidence of acute appendicitis. No evidence of acute diverticulitis. ACT 112: Negative or not required by law. Electronically signed by: Joshua Jacobo M.D. 07/13/2020 7:27 PM Dictated: 07/13/201909Transcribed: 07/13/201909 [facility], [id number] XRay Report Patient: GWENDOLYN CHAVEZAdmit Date: 07/13/20MR#: [id number]: [address] [facility]:[id number]: Date: [address] [place] [address] Zip: [place], [place] [address]Zfl: 60Location: EDSex: FRoom/Bed:Att Phy:Diagnosis: ABDOMINAL PAIN - DISCHARGED FROM [facility] 07/12Pr Phy: Brent Dye, III, CRNPService Date: 07/13/20Fam Phy:Interpreting Phy: Joshua Jacobo [facility] Phy: Ordering Phy: Dejah Wagner PA-C cc: ~ XR chest 1V portable HISTORY: epigastric pain COMPARISON: Chest 07/10/2020. FINDINGS: Chronic elevation of the left hemidiaphragm with left basilar linear densities likely representing subsegmental atelectasis. The cardiac silhouette remains borderline enlarged. Left subclavian Port-A-Cath terminates in the SVC. There are poststernotomy changes. The right lung is clear. No pneumothorax. No pleural effusions. IMPRESSION: No significant change compared to the prior study. No acute process. ACT 112: Negative or not required by law. Electronically signed by: Joshua Jacobo M.D. 07/13/2020 5:59 PM Dictated: 07/13/201757Transcribed: 07/13/201757 Code Status & VTE Plan Code Status Full code VTE Prophylaxis Plan VTE Prophylaxis will be ordered: Yes PG Care Time/CCT Total # of Minutes Spent Total Time Spent with Patient: Total time spent is greater than 50% in coordination of care (as documented) at patient's floor/unit and/or counseling patient: Coding Level of Care Code 02648 Initial Inpt Care Lvl 3 Diagnoses Cancer associated pain G89.3 Pancreatic cancer C25.9 Pancreatic malignancy location: unspecified Superior mesenteric vein thrombosis K55.069 Hypokalemia E87.6 (1) Pancreatic cancer Pancreatic malignancy location: unspecified Qualified Code(s): C25.9 - Malignant neoplasm of pancreas, unspecified
[2020-07-13] MEDS ORDERED: SUMAtriptan succinate 6 MG/0.5 ML VIAL SQ PRN (22:22)
[2020-07-13] MEDS ORDERED: RIZATRIPTAN BENZOATE 10 MG TAB PO PRN (22:22)
[2020-07-13] MEDS ORDERED: diphenhydrAMINE Capsule 25 MG CAP PO PRN (22:22)
[2020-07-13] MEDS ORDERED: oxyCODONE HCL IR 5 MG TAB (IMMEDIATE RELEASE) PO PRN (22:22)
[2020-07-13] MEDS ORDERED: ACETAMINOPHEN 325 MG TAB PO PRN (22:22)
[2020-07-13] MEDS ORDERED: NALOXONE HCL 0.4 MG/1 ML VIAL/CARP IV PRN (22:22)
[2020-07-13] MEDS ORDERED: ACETAMINOPHEN HOME PACK 500 MG TABLET PO PRN (22:22)
[2020-07-13] MEDS ORDERED: PROMETHAZINE HCL 25 MG TAB PO PRN (22:22)
[2020-07-13] MEDS: HYDROmorphone INJ 1 MG/ML SYRINGE IV PRN (22:45)
[2020-07-13] MEDS: LOSARTAN POTASSIUM 25 MG TAB PO SCH (23:15)
[2020-07-13] MEDS: GABAPENTIN 800 MG TAB PO SCH (23:15)
[2020-07-13] MEDS: FERROUS SULFATE 325 MG TAB PO SCH (23:15)
[2020-07-13] MEDS: DOCUSATE SODIUM 100 MG CAP PO SCH (23:15)
[2020-07-13] MEDS: chlorproMAZINE HCL 10 MG TAB PO SCH (23:16)
[2020-07-13] MEDS: busPIRone 15 MG TAB PO SCH (23:16)
[2020-07-13] MEDS: OXYBUTYNIN CHLORIDE XL 5 MG TABCR PO SCH (23:16)
[2020-07-13] MEDS: NSS + 20MEQ KCL 20 MEQ/1,000 ML BAG IV SCH (23:16)
[2020-07-13] MEDS: fentaNYL 50 MCG/HR TDSY TD SCH (23:26)
[2020-07-13] MEDS: POLYETHYLENE (MIRALAX) 17 GM PACK PO SCH (23:26)
[2020-07-14] MEDS: HYDROmorphone INJ 1 MG/ML SYRINGE IV PRN ×10 (00:45→21:43)
--- NOTE | 2020-07-14 04:12 | Billing Data ---
Date of Service July 14, 2020 Coding Level of Care Code 89734 Initial Inpt Care Lvl 3
[2020-07-14] MEDS: NSS + 20MEQ KCL 20 MEQ/1,000 ML BAG IV SCH ×3 (06:58→21:38)
[2020-07-14] MEDS: DOCUSATE SODIUM 100 MG CAP PO SCH ×2 (07:56→21:03)
[2020-07-14] MEDS: CHECK fentaNYL PATCH PLACEMENT SCH ×3 (07:58→21:39)
[2020-07-14] MEDS: VENLAFAXINE HCL XR 75 MG CAPXR PO SCH (07:59)
[2020-07-14] MEDS: tiZANidine HCL 4 MG TABLET PO PRN (07:59)
[2020-07-14] MEDS: PANTOprazole 40 MG TAB PO SCH (07:59)
[2020-07-14] MEDS: ATORVASTATIN 40 MG TAB PO SCH (08:00)
[2020-07-14] MEDS: VENLAFAXINE HCL XR 37.5 MG CAPXR PO SCH (08:00)
[2020-07-14] MEDS: FERROUS SULFATE 325 MG TAB PO SCH (08:01)
[2020-07-14] MEDS: ENOXAPARIN 150 MG/ML SYR SQ SCH (08:01)
[2020-07-14] MEDS: GABAPENTIN 800 MG TAB PO SCH ×3 (08:01→21:04)
[2020-07-14] MEDS: POLYETHYLENE (MIRALAX) 17 GM PACK PO SCH ×2 (08:05→21:09)
[2020-07-14] MEDS: SENNA 8.6 MG TAB PO SCH (08:07)
[2020-07-14] MEDS ORDERED: POTASSIUM CHLORIDE CRTAB 20 MEQ TABCR PO ONE (10:00)
[2020-07-14] MEDS ORDERED: TOPIRAMATE 100 MG TAB PO ONE (10:15)
--- NOTE | 2020-07-14 10:18 | Hospitalist Progress Note ---
Date of Service July 14, 2020 Assessment & Plan (1) Cancer associated pain: * Pancreatic cancer associated pain/status post celiac plexus block on July 11- * Admit to medical surgical floor for pain control. * Increase fentanyl patch from 25 to 50 mcg change every 3 days. * Dilaudid 0.5 mg IV did not touch her pain, and with effort increased to 1 mg IV every 3 hours as needed severe pain. * Oxycodone 5 mg p.o. every 4 hours as needed moderate pain -- likely will need increased to 10mg prn at discharge given increased pain needs * Continue gabapentin 800mg TID * Continue bowel regimen -- patient does report looser stools * Antiemetics prn * --> Also replacing K which was low at 3.0 on admission --> still low this AM 3.3 and given 20meq in addition to her IVF. Consider some increased abd discomfort/nausea from hypokalemia. * --> Checked mag, low at 1.7 today and will order IV replacement. Repeat in AM * Low during last admission but had been NPO for several procedures. Will likely need continued supplementation as she is with poor PO appetite. Consider kdur for smaller pills * Lipase 161 * Did have a palliative care consult last admission * Was seen by pain management for celiac plexus block last admission -- requesting to be seen again tomorrow morning. Was discussed with Dr. Marie th is afternoon, no bleeding noted to retroperitoneum on imaging on admission * To have chemo tomorrow with [facility] -- will need to contact in AM about hospitalization and to see if able to move appointment to later in the week. Of note, pancreatic mass increased from 4 to 4.5cm from earlier this week. Also tumor likely causing occ of SMV prior tx with anticoag but was held for procedures this week. Resumed lovenox 127.5mg daily and to continue at d/c with follow up with Dr Haq/coag clinic * Continue IVF for now, added K (2) Pancreatic cancer: * See above * Full liquid diet as tolerated * CT with progression to 4.5cm pancreatic mass from 4cm on previous imaging this week * To have chemo tomorrow with [facility] -- will need to re-schedule for this week as prior scheduled for when Dr. gonzalez [place] (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 initially on coumadin. INR >10 last admission requiring reversal and was switched to Lovenox per discussion with Dr. Haq during last admission * Continue enoxaparin 127.5 mg subcu daily * INR in AM (4) Hypokalemia: * Potassium 3.0 upon admission * Placed on NSS + KCl 20 mEq at high 25 mils per hour. * Repeat still low and ordered PO --> will repeat in AM. Would continue supplementation at discharge * Will also give dose of mirtazapine tonight as ordered x 1 last admission given lack of appetite as well. Hope to help with depression/anxiety/appetite * Repeat laboratories in a.m. HTN/HLD * -- Continue losartan, atorvastatin daily * BP elevated in setting of pain -- monitor as pain controlled Pulmonary Abn * -- Noted last admission, pulm consulted and felt infectious on CT compared to imaging on admission and rec for Zpack x 5 days * Resumed today for another 3 doses to complete tx * No sob/cp reported or cough. Stable on RA Anxiety/Depression * - continue buspar * -- continue klonopin BID prn * --Added mirtazapine as above DM II * --pre-DM * -- new last admission, likely from [facility] [place] * --ISS while inpatient * --Holding metformin * Monitor BSGs GERD * Continue protonix 40mg daily DVT Proph * --Lovenox as above Admission and Anticipated Discharge Date Admission Date: July 13, 2020 Supervising Physician Co-Signing Physician Notes TICO Supervision Note: I did not personally see or examine the patient today, but I verified all olivarez points of TICO Steinberg's assessment and plan with the following exceptions/additions: None Subjective Patient evaluated this morning. Pain improved since admission but still present in epigastric region. She was feeling well at time of discharge but then as the day went on she had increasing pain/nausea/discomfort and had her sister bring her back to the ER. Discussed low potassium and replacement. Attempting to normalize her electrolytes and then re-assess pain control. Will continue increased fentanyl patch and utilize IV for now. Can utilize increased PO at discharge but did discuss dependency/addition. No fever, chills, chest pain, shortness of breath. Requesting dose of pain medication at this time. Lengthy discussion had regarding chemo -- she thinks family thinks she doesn't want to pursue however she states she was just hopeful for one normal day at home prior to starting this. Discussed we will re-attempt better pain control and contact oncology tomorrow to see what other openings are available this week to see if there are other options as she was initially to begin this tomorrow. (Moved up from the 12th) Review of Systems Review of Systems: All systems reviewed & are unremarkable except as noted in HPI & below Physical Exam Physical Exam: The patient appears chronically ill, labile emotions at times but improved after lengthy discussion about plan of care acutely Head exam is normocephalic atraumatic no scleral icterus Neck is without JVD, thyromegaly, or carotid bruits Chest with aport to L chest, dressing c/d/i. some bruising/ecchymosis but no drainage noted Lungs are clear to auscultation, no focal loss of breath sounds, diminished BS Cardiac exam: RRR, no m/r/g, no edema Abd: +BS, tender to palpation in epigastric region, no hepatosplenomegaly appreciated Skin: bruising to posterior left back, tender to palpation (improved) Ext: moves all extremities Neuro: no focal deficits Psych: AOx3, labile, anxious affect Results & Data Results & Data ([facility]) Vital Signs (Past 12 Hours) Vital Signs Temp Pulse Resp BP Pulse Ox 07/14/20 07:41 36.7 C 72 16 146/88 H 98 07/13/20 23:11 155/84 H Laboratory Results 07/14/20 07/14/20 07/14/20 Range/Units 09:54 09:49 09:49 WBC (4.8-10.8) K/uL RBC (4.2-5.4) M/uL Hgb (12.0-16.0) g/dL Hct (37-47) % MCV (80-100) fL MCH (25-34) pg MCHC (32-36) g/dL RDW Std Deviation (36.4-46.3) fL RDW Coeff of Natali (11.5-14.5) % Plt Count (130-400) K/uL MPV (7.4-10.4) fL Immature Gran % (Auto) % Neut % (Auto) % Lymph % (Auto) % [place] % (Auto) % Eos % (Auto) % Baso % (Auto) % Neut # (Auto) (1.4-6.5) K/uL Lymph # (Auto) (1.2-3.4) K/uL [place] # (Auto) (0.11-0.59) K/uL Eos # (Auto) (0-0.5) K/uL Baso # (Auto) (0-0.2) K/uL Immature Gran # (Auto) (0.00-0.02) K/uL PT 10.7 (9.0-12.0) Seconds INR 1.1 (0.9-1.1) Sodium 137 (136-145) mmol/L Potassium 3.3 L (3.5-5.1) mmol/L Chloride 107 (98-107) mmol/L Carbon Dioxide 25 (21-32) mmol/L Anion Gap 5.0 (3-11) BUN 6 L (7-18) mg/dl Creatinine 0.70 (0.6-1.2) mg/dl Est Cr Clr Drug Dosing 93.1 ml/min Est GFR ( Amer) 109.9 Est GFR (Non-Af Amer) 94.8 BUN/Creatinine Ratio 8.9 L (10-20) Glucose 196 H (70-99) mg/dl Calcium 8.3 L (8.5-10.1) mg/dl Phosphorus (2.5-4.9) mg/dl Magnesium 1.7 L (1.8-2.4) mg/dl Total Bilirubin 0.5 (0.2-1) mg/dl AST 10 L (15-37) U/L ALT 20 (12-78) U/L Alkaline Phosphatase 74 (45-117) U/L Ammonia (11-32) umol/L Total Creatine Kinase 36 (26-192) U/L Troponin I (0-0.045) ng/ml Total Protein 6.2 L (6.4-8.2) gm/dl Albumin 3.6 (3.4-5.0) gm/dl Globulin 2.6 (2.5-4.0) gm/dl Albumin/Globulin Ratio 1.4 (0.9-2) Lipase 161 (73-393) U/L Urine Color Urine Appearance (Clear) Urine pH (4.5-7.5) Ur Specific [place] (1.000-1.030) Urine Protein (Negative) Urine Glucose (UA) (Negative) Urine Ketones (Negative) Urine Blood (Negative) Urine Nitrite (Negative) Urine Bilirubin (Negative) Urine Urobilinogen (Negative) Ur Leukocyte Esterase (Negative) Urine WBC (Auto) (0-5) /hpf Urine RBC (Auto) (0-4) /hpf U Hyaline Cast (Auto) (0-5) /lpf U Epithel Cells (Auto) (0-5) /lpf Urine Bacteria (Auto) (Negative) COVID-19 Eval Order SARS-CoV-2 (PCR) (Negative) Influenza Type A (PCR) (Neg) Influenza Type B (PCR) (Neg) RSV (RT-PCR) (Neg) 07/13/20 07/13/20 07/13/20 Range/Units 18:50 17:49 17:49 WBC (4.8-10.8) K/uL RBC (4.2-5.4) M/uL Hgb (12.0-16.0) g/dL Hct (37-47) % MCV (80-100) fL MCH (25-34) pg MCHC (32-36) g/dL RDW Std Deviation (36.4-46.3) fL RDW Coeff of Natali (11.5-14.5) % Plt Count (130-400) K/uL MPV (7.4-10.4) fL Immature Gran % (Auto) % Neut % (Auto) % Lymph % (Auto) % [place] % (Auto) % Eos % (Auto) % Baso % (Auto) % Neut # (Auto) (1.4-6.5) K/uL Lymph # (Auto) (1.2-3.4) K/uL [place] # (Auto) (0.11-0.59) K/uL Eos # (Auto) (0-0.5) K/uL Baso # (Auto) (0-0.2) K/uL Immature Gran # (Auto) (0.00-0.02) K/uL PT (9.0-12.0) Seconds INR (0.9-1.1) Sodium (136-145) mmol/L Potassium (3.5-5.1) mmol/L Chloride (98-107) mmol/L Carbon Dioxide (21-32) mmol/L Anion Gap (3-11) BUN (7-18) mg/dl Creatinine (0.6-1.2) mg/dl Est Cr Clr Drug Dosing ml/min Est GFR ( Amer) Est GFR (Non-Af Amer) BUN/Creatinine Ratio (10-20) Glucose (70-99) mg/dl Calcium (8.5-10.1) mg/dl Phosphorus (2.5-4.9) mg/dl Magnesium (1.8-2.4) mg/dl Total Bilirubin (0.2-1) mg/dl AST (15-37) U/L ALT (12-78) U/L Alkaline Phosphatase (45-117) U/L Ammonia (11-32) umol/L Total Creatine Kinase (26-192) U/L Troponin I (0-0.045) ng/ml Total Protein (6.4-8.2) gm/dl Albumin (3.4-5.0) gm/dl Globulin (2.5-4.0) gm/dl Albumin/Globulin Ratio (0.9-2) Lipase (73-393) U/L Urine Color Yellow Urine Appearance Turbid A (Clear) Urine pH 7.0 (4.5-7.5) Ur Specific [place] 1.018 (1.000-1.030) Urine Protein Trace H (Negative) Urine Glucose (UA) Negative (Negative) Urine Ketones 1+ H (Negative) Urine Blood Negative (Negative) Urine Nitrite Negative (Negative) Urine Bilirubin Negative (Negative) Urine Urobilinogen Negative (Negative) Ur Leukocyte Esterase Trace H (Negative) Urine WBC (Auto) 1-5 (0-5) /hpf Urine RBC (Auto) 0-4 (0-4) /hpf U Hyaline Cast (Auto) 1-5 (0-5) /lpf U Epithel Cells (Auto) 20-30 H (0-5) /lpf Urine Bacteria (Auto) Negative (Negative) COVID-19 Eval Order [facility]Rsv at [facility] SARS-CoV-2 (PCR) NEGATIVE (Negative) Influenza Type A (PCR) Negative (Neg) Influenza Type B (PCR) Negative (Neg) RSV (RT-PCR) Negative (Neg) 07/13/20 07/13/20 07/13/20 Range/Units 17:37 17:11 17:11 WBC 7.44 (4.8-10.8) K/uL RBC 4.92 (4.2-5.4) M/uL Hgb 14.1 (12.0-16.0) g/dL Hct 40.5 (37-47) % MCV 82.3 (80-100) fL MCH 28.7 (25-34) pg MCHC 34.8 (32-36) g/dL RDW Std Deviation 42.3 (36.4-46.3) fL RDW Coeff of Natali 14.1 (11.5-14.5) % Plt Count 241 (130-400) K/uL MPV 10.7 H (7.4-10.4) fL Immature Gran % (Auto) 0.3 % Neut % (Auto) 69.9 % Lymph % (Auto) 20.6 % Canyon % (Auto) 7.9 % Eos % (Auto) 0.9 % Baso % (Auto) 0.4 % Neut # (Auto) 5.20 (1.4-6.5) K/uL Lymph # (Auto) 1.53 (1.2-3.4) K/uL [place] # (Auto) 0.59 (0.11-0.59) K/uL Eos # (Auto) 0.07 (0-0.5) K/uL Baso # (Auto) 0.03 (0-0.2) K/uL Immature Gran # (Auto) 0.02 (0.00-0.02) K/uL PT 10.4 (9.0-12.0) Seconds INR 1.0 (0.9-1.1) Sodium (136-145) mmol/L Potassium (3.5-5.1) mmol/L Chloride (98-107) mmol/L Carbon Dioxide (21-32) mmol/L Anion Gap (3-11) BUN (7-18) mg/dl Creatinine (0.6-1.2) mg/dl Est Cr Clr Drug Dosing ml/min Est GFR ( Amer) Est GFR (Non-Af Amer) BUN/Creatinine Ratio (10-20) Glucose (70-99) mg/dl Calcium (8.5-10.1) mg/dl Phosphorus (2.5-4.9) mg/dl Magnesium (1.8-2.4) mg/dl Total Bilirubin (0.2-1) mg/dl AST (15-37) U/L ALT (12-78) U/L Alkaline Phosphatase (45-117) U/L Ammonia 12.0 (11-32) umol/L Total Creatine Kinase (26-192) U/L Troponin I (0-0.045) ng/ml Total Protein (6.4-8.2) gm/dl Albumin (3.4-5.0) gm/dl Globulin (2.5-4.0) gm/dl Albumin/Globulin Ratio (0.9-2) Lipase (73-393) U/L Urine Color Urine Appearance (Clear) Urine pH (4.5-7.5) Ur Specific [place] (1.000-1.030) Urine Protein (Negative) Urine Glucose (UA) (Negative) Urine Ketones (Negative) Urine Blood (Negative) Urine Nitrite (Negative) Urine Bilirubin (Negative) Urine Urobilinogen (Negative) Ur Leukocyte Esterase (Negative) Urine WBC (Auto) (0-5) /hpf Urine RBC (Auto) (0-4) /hpf U Hyaline Cast (Auto) (0-5) /lpf U Epithel Cells (Auto) (0-5) /lpf Urine Bacteria (Auto) (Negative) COVID-19 Eval Order SARS-CoV-2 (PCR) (Negative) Influenza Type A (PCR) (Neg) Influenza Type B (PCR) (Neg) RSV (RT-PCR) (Neg) 07/13/20 Range/Units 17:11 WBC (4.8-10.8) K/uL RBC (4.2-5.4) M/uL Hgb (12.0-16.0) g/dL Hct (37-47) % MCV (80-100) fL MCH (25-34) pg MCHC (32-36) g/dL RDW Std Deviation (36.4-46.3) fL RDW Coeff of Natali (11.5-14.5) % Plt Count (130-400) K/uL MPV (7.4-10.4) fL Immature Gran % (Auto) % Neut % (Auto) % Lymph % (Auto) % [place] % (Auto) % Eos % (Auto) % Baso % (Auto) % Neut # (Auto) (1.4-6.5) K/uL Lymph # (Auto) (1.2-3.4) K/uL [place] # (Auto) (0.11-0.59) K/uL Eos # (Auto) (0-0.5) K/uL Baso # (Auto) (0-0.2) K/uL Immature Gran # (Auto) (0.00-0.02) K/uL PT (9.0-12.0) Seconds INR (0.9-1.1) Sodium 137 (136-145) mmol/L Potassium 3.0 L (3.5-5.1) mmol/L Chloride 106 (98-107) mmol/L Carbon Dioxide 23 (21-32) mmol/L Anion Gap 8.0 (3-11) BUN 7 (7-18) mg/dl Creatinine 0.73 (0.6-1.2) mg/dl Est Cr Clr Drug Dosing 89.3 ml/min Est GFR ( Amer) 104.5 Est GFR (Non-Af Amer) 90.1 BUN/Creatinine Ratio 9.7 L (10-20) Glucose 124 H (70-99) mg/dl Calcium 9.1 (8.5-10.1) mg/dl Phosphorus 3.1 (2.5-4.9) mg/dl Magnesium 1.8 (1.8-2.4) mg/dl Total Bilirubin 0.4 (0.2-1) mg/dl AST 15 (15-37) U/L ALT 27 (12-78) U/L Alkaline Phosphatase 93 (45-117) U/L Ammonia (11-32) umol/L Total Creatine Kinase (26-192) U/L Troponin I < 0.015 (0-0.045) ng/ml Total Protein 7.7 (6.4-8.2) gm/dl Albumin 4.5 (3.4-5.0) gm/dl Globulin 3.2 (2.5-4.0) gm/dl Albumin/Globulin Ratio 1.4 (0.9-2) Lipase (73-393) U/L Urine Color Urine Appearance (Clear) Urine pH (4.5-7.5) Ur Specific [place] (1.000-1.030) Urine Protein (Negative) Urine Glucose (UA) (Negative) Urine Ketones (Negative) Urine Blood (Negative) Urine Nitrite (Negative) Urine Bilirubin (Negative) Urine Urobilinogen (Negative) Ur Leukocyte Esterase (Negative) Urine WBC (Auto) (0-5) /hpf Urine RBC (Auto) (0-4) /hpf U Hyaline Cast (Auto) (0-5) /lpf U Epithel Cells (Auto) (0-5) /lpf Urine Bacteria (Auto) (Negative) COVID-19 Eval Order SARS-CoV-2 (PCR) (Negative) Influenza Type A (PCR) (Neg) Influenza Type B (PCR) (Neg) RSV (RT-PCR) (Neg) Diagnostic Findings CTAP IMPRESSION: 1. Redemonstration of a 4.5 cm ill-defined pancreatic head mass 2. Interval development of focal occlusion of a proximal branch of the superior mesenteric vein adjacent to the pancreatic head mass. This is likely due to tumor infiltration. The mid to distal branches of the superior mesenteric vein remain patent. 3. Stable hepatic lesions as described above. 4. No evidence of bowel obstruction. No evidence of free air 5. No evidence of acute appendicitis. No evidence of acute diverticulitis. PG Care Time/CCT Total # of Minutes Spent Total Time Spent with Patient: Total time spent is greater than 50% in coordination of care (as documented) at patient's floor/unit and/or counseling patient: Coding Level of Care Code 40667 Subseq Hosp Care Lvl 3 Diagnoses Cancer associated pain G89.3 Pancreatic cancer C25.9 Pancreatic malignancy location: unspecified Superior mesenteric vein thrombosis K55.069 Hypokalemia E87.6 (1) Pancreatic cancer Pancreatic malignancy location: unspecified Qualified Code(s): C25.9 - Malignant neoplasm of pancreas, unspecified
[2020-07-14 10:20] LABS: INR 1.1 (0.9-1.1); Prothrombin Time 10.7 Seconds (9.0-12.0)
[2020-07-14 10:27] LABS: Albumin Level 3.6 gm/dl (3.4-5.0); BUN Creatinine Ratio 8.9 (10-20); Calcium 8.3 mg/dl (8.5-10.1); Creatinine Clr Calc Pharmacy 93.1 ml/min; Est GFR (African American) 109.9; Est GFR (Non-African American) 94.8; Magnesium 1.7 mg/dl (1.8-2.4); Potassium 3.3 mmol/L (3.5-5.1)
[2020-07-14 10:33] LABS: Albumin Globulin Ratio 1.4 (0.9-2); Bilirubin,Total 0.5 mg/dl (0.2-1); Globulin 2.6 gm/dl (2.5-4.0); Total Protein 6.2 gm/dl (6.4-8.2)
[2020-07-14] MEDS: AZITHROMYCIN 250 MG TAB PO SCH (11:11)
[2020-07-14] MEDS: clonazePAM 0.25 MG TAB PO PRN ×2 (12:14→22:41)
[2020-07-14] MEDS ORDERED: DEXTROSE 50% 50 ML SYRINGE IV PRN (12:15)
[2020-07-14] MEDS ORDERED: GLUCAGON FOR INJ 1 MG VIAL SQ PRN (12:15)
[2020-07-14] MEDS ORDERED: GLUCOSE 10 TABS/TUBE PO PRN (12:15)
[2020-07-14] MEDS ORDERED: CARBOHYDRATES FOR HYPOGLYCEMIA PO PRN (12:15)
[2020-07-14] MEDS ORDERED: GLUCOSE 40% GEL 15 GM TUBE PO PRN (12:15)
[2020-07-14] MEDS: MAGNESIUM SULFATE / D5W 1 GM/100 ML BAG IV SCH ×2 (13:23→15:31)
[2020-07-14] MEDS: INSULIN ASPART 100 UNITS/ML 3 ML PEN SC SCH ×3 (14:27→21:16)
--- NOTE | 2020-07-14 15:12 | Electrocardiogram Report ---
Test Reason : Blood Pressure : / mmHG Vent. Rate : 083 BPM Atrial Rate : 083 BPM P-R Int : 114 ms QRS Dur : 084 ms QT Int : 374 ms P-R-T Axes : 067 014 039 degrees QTc Int : 439 ms Normal sinus rhythm Normal ECG When compared with ECG of 08-JUL-2020 09:45, No significant change was found Confirmed by Elliott Mendoza [id number]) on 07/14/2020 3:12:21 PM Referred By: REFERRED SELF Confirmed By:Elliott Mendoza
[2020-07-14] MEDS: MULTIVITAMIN TAB PO SCH (15:32)
[2020-07-14] MEDS: oxyCODONE HCL IR 5 MG TAB (IMMEDIATE RELEASE) PO PRN (17:43)
[2020-07-14] MEDS: MIRTAZAPINE TAB 15 MG TAB PO SCH (21:03)
[2020-07-14] MEDS: OXYBUTYNIN CHLORIDE XL 5 MG TABCR PO SCH (21:04)
[2020-07-14] MEDS: LOSARTAN POTASSIUM 25 MG TAB PO SCH (21:05)
[2020-07-14] MEDS: chlorproMAZINE HCL 10 MG TAB PO SCH (21:06)
[2020-07-14] MEDS: busPIRone 15 MG TAB PO SCH (21:06)
[2020-07-14] MEDS: POTASSIUM CHLORIDE 10 MEQ TABCR PO SCH (21:38)
[2020-07-15] MEDS: HYDROmorphone INJ 1 MG/ML SYRINGE IV PRN ×2 (05:03→07:44)
[2020-07-15] MEDS: NSS + 20MEQ KCL 20 MEQ/1,000 ML BAG IV SCH ×3 (05:04→20:03)
[2020-07-15] MEDS: oxyCODONE HCL IR 5 MG TAB (IMMEDIATE RELEASE) PO PRN (06:22)
[2020-07-15 06:54] LABS: BUN Creatinine Ratio 7.7 (10-20); Calcium 8.3 mg/dl (8.5-10.1); Creatinine Clr Calc Pharmacy 125.3 ml/min; Est GFR (African American) 121.2; Est GFR (Non-African American) 104.6; Magnesium 2.3 mg/dl (1.8-2.4); Potassium 4.1 mmol/L (3.5-5.1)
[2020-07-15] MEDS: SENNA 8.6 MG TAB PO SCH (07:36)
[2020-07-15] MEDS: DOCUSATE SODIUM 100 MG CAP PO SCH ×2 (07:36→20:04)
[2020-07-15] MEDS: VENLAFAXINE HCL XR 37.5 MG CAPXR PO SCH (07:36)
[2020-07-15] MEDS: VENLAFAXINE HCL XR 75 MG CAPXR PO SCH (07:36)
[2020-07-15] MEDS: GABAPENTIN 800 MG TAB PO SCH ×3 (07:37→20:05)
[2020-07-15] MEDS: PANTOprazole 40 MG TAB PO SCH (07:37)
[2020-07-15] MEDS: TOPIRAMATE 100 MG TAB PO SCH (07:37)
[2020-07-15] MEDS: POTASSIUM CHLORIDE 10 MEQ TABCR PO SCH ×2 (07:38→20:03)
[2020-07-15] MEDS: FERROUS SULFATE 325 MG TAB PO SCH (07:38)
[2020-07-15] MEDS: CHECK fentaNYL PATCH PLACEMENT SCH ×5 (07:38→23:54)
[2020-07-15] MEDS: ATORVASTATIN 40 MG TAB PO SCH (07:38)
[2020-07-15] MEDS: AZITHROMYCIN 250 MG TAB PO SCH (07:38)
[2020-07-15] MEDS: ENOXAPARIN 150 MG/ML SYR SQ SCH (07:39)
[2020-07-15] MEDS: POLYETHYLENE (MIRALAX) 17 GM PACK PO SCH ×2 (07:39→20:05)
[2020-07-15] MEDS: INSULIN ASPART 100 UNITS/ML 3 ML PEN SC SCH ×4 (08:27→21:33)
[2020-07-15] MEDS ORDERED: METHYLNALTREXONE BROMIDE 12 MG/0.6 ML VIAL SQ PRN (08:34)
[2020-07-15] MEDS ORDERED: NALOXONE HCL 0.4 MG/1 ML VIAL/CARP IV PRN (08:34)
[2020-07-15] MEDS ORDERED: HYDROmorphone PCA 30 MG/30 ML IV PRN (08:34)
[2020-07-15] MEDS ORDERED: HYDROmorphone Bolus from PCA IV PRN (08:34)
[2020-07-15] MEDS ORDERED: POTASSIUM CHLORIDE CRTAB 20 MEQ TABCR PO SCH (09:00)
[2020-07-15] MEDS ORDERED: MAGNESIUM CITRATE 296 ML/BTL PO SCH (09:00)
[2020-07-15] MEDS: SODIUM CHLORIDE 0.9% 1000ML 1,000 ML IV SCH (10:22)
[2020-07-15] MEDS: fentaNYL 50 MCG/HR TDSY TD SCH (10:24)
[2020-07-15] MEDS: fentaNYL 25 MCG/HR TDSY TD SCH (10:25)
--- NOTE | 2020-07-15 14:33 | Hospitalist Progress Note ---
Date of Service July 15, 2020 Assessment & Plan (1) Cancer associated pain: * Pancreatic cancer associated pain/status post celiac plexus block on July 11 now increasing Fentanyl to 75mcg and Dilaudid [employer] started discussed another block with Dr. Ca, opting to using medications, don't want to hold Lovenox at this time, I agree * Oxycodone 5 mg p.o. 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 initially on coumadin. INR >10 last admission requiring reversal and was switched to Lovenox per discussion with Dr. Haq during last admission * Continue enoxaparin 127.5 mg subcu daily (4) Hypokalemia: * Potassium 3.0 upon admission * Placed on NSS + KCl 20 mEq at high 125 mils per hour. * up to 4.1 today, stop K in fluids HTN/HLD * -- Continue losartan, atorvastatin daily * BP elevated in setting of pain -- monitor as pain controlled Pulmonary Abn * -- Noted last admission, pulm consulted and felt infectious on CT compared to imaging on admission and rec for Zpack x 5 days * Resumed today for another 3 doses to complete tx * No sob/cp reported or cough. Stable on RA Anxiety/Depression * - continue buspar * -- continue klonopin BID prn * -- Ativan PRN ordered per palliative care DM II * --pre-DM * -- new last admission, likely from panc insuff 2nd to ca * --ISS while inpatient * --Holding metformin * Monitor BSGs GERD * Continue protonix 40mg daily DVT Proph * --Lovenox as above Admission and Anticipated Discharge Date Admission Date: July 13, 2020 Subjective patient still with pain despite Fentanyl patch increased to 75mcg, Dilaudid [employer] added discussed with palliative care and pain management reviewed records, most recent CT with mass increasing from 4cm to 4.5cm, growing quickly, with evidence of metastasis, local invasion has SMV thrombus -- on Lovenox discussed at length with patient's sister Soha who is very well versed in oncology and understands poor prognosis patient has been losing significant weight, in severe pain, cannot eat, has nausea was just discharged after celiac plexus block and now back in just two days patient was supposed to start chemotherapy today but cancelled since she is admitted sister is concerned that the patient does not understand the gravity of her situ ation her sister feels that she has maybe a few weeks at best to live I discussed with her that I would agree, that chemotherapy would likely be more detrimental at this time given her severe pain, no appetite plan to talk with [facility] oncology tomorrow morning and then touch base with sister and will then meet with patient with a plan appreciate palliative care consultation, patient changed to DNR, her other sister Araceli was at the bedside at that time, she is POA Review of Systems Review of Systems: All systems reviewed & are unremarkable except as noted in Subjective Constitutional: + fatigue, + weakness, + anorexia and + weight loss; no fever Respiratory: no cough and no dyspnea Cardiovascular: no chest pain and no edema Gastrointestinal: + abdominal pain (severe, epigastric), + nausea and + constipation; no vomiting and no diarrhea/loose stools Musculoskeletal: + muscle weakness Psychiatric: + depression and + anxiety Physical Exam Constitutional: well developed, + thin and + frail appearing; no acute distress and + uncomfortable Neck: trachea midline, no thyromegaly Respiratory: normal respiratory effort, lungs clear to auscultation Cardiovascular: RRR, no murmur, no edema Gastrointestinal (Abdomen): Inspection/Auscultation: abdomen normal to inspection and normal bowel sounds Percussion/Palpation: + abdomen tender (very tender in epigastric region), abdomen soft and normal to percussion; no guarding, abdomen not rigid and no ascites Musculoskeletal: Head/Neck/Chest: normocephalic, head atraumatic and neck supple Extremities: + abnormal strength and + muscle atrophy; no cyanosis, no clubbing and no petechiae Skin: no rashes, warm and dry Neurologic: patellar DTR's 2+ bilat, sensation intact and PERRL, EOMI, accommodation nl, no face palsy, no dysarthria Psychiatric: Orientation: alert and oriented x 3 Affect: + anxious affect Mood: + anxious mood Lymphatic: no cervical or axillary lymphadenopathy Results & Data Results & Data ([facility]) Vital Signs (Past 12 Hours) Vital Signs Temp Pulse Resp BP BP Pulse Ox 07/15/20 13:03 36.5 C 83 16 157/85 H 96 07/15/20 11:57 83 16 156/99 H 96 07/15/20 11:00 36.7 C 74 18 155/89 H 98 07/15/20 10:00 78 18 144/88 H 97 07/15/20 07:11 36.5 C 79 18 145/91 H 96 Laboratory Results Laboratory Results - last 24 hr 07/14/20 07/14/20 07/14/20 13:28 17:07 20:36 Sodium Potassium Chloride Carbon Dioxide Anion Gap BUN Creatinine Est Cr Clr Drug Dosing Est GFR ( Amer) Est GFR (Non-Af Amer) BUN/Creatinine Ratio Glucose POC Glucose 153 H 104 H 107 H Calcium Magnesium 07/15/20 07/15/20 07/15/20 06:02 08:19 12:00 Sodium 143 Potassium 4.1 D Chloride 115 H Carbon Dioxide 24 Anion Gap 4.0 BUN 4 L Creatinine 0.52 L Est Cr Clr Drug Dosing 125.3 Est GFR ( Amer) 121.2 Est GFR (Non-Af Amer) 104.6 BUN/Creatinine Ratio 7.7 L Glucose 109 H POC Glucose 119 H 124 H Calcium 8.3 L Magnesium 2.3 Medications Administered Current Inpatient Medications Acetaminophen (Acetaminophen 325 Mg Tab) 650 mg PO Q4H PRN PRN Reason: mild pain/fever Stop: 08/12/20 22:21 Last Admin: 07/14/20 21:02 Dose: 650 mg Documented by: Atorvastatin Calcium (Atorvastatin 40 Mg Tab) 40 mg PO DAILY [facility] Stop: 08/13/20 08:59 Last Admin: 07/15/20 07:38 Dose: 40 mg Documented by: Azithromycin ([facility]romycin 250 Mg Tab) [facility] [place] Protocol Stop: 07/16/20 09:01 Last Admin: 07/15/20 07:38 Dose: 250 mg Documented by: Buspirone HCl (Buspirone 15 Mg Tab) 30 mg PO HS [facility] Stop: 08/12/20 22:21 Last Admin: 07/14/20 21:06 Dose: 30 mg Documented by: Chlorpromazine HCl (Chlorpromazine Hcl 10 Mg Tab) 10 mg PO HS [facility] Stop: 08/12/20 22:21 Last Admin: 07/14/20 21:06 Dose: 10 mg Documented by: Clonazepam (Clonazepam 0.25 Mg Tab) 0.25 mg PO BID PRN PRN Reason: Anxiety Stop: 08/12/20 22:21 Last Admin: 07/14/20 22:41 Dose: 0.25 mg Documented by: Dextrose (Dextrose 50% 50 Ml Syringe) 25 - 50 ml IV UD PRN; Protocol PRN Reason: Hypoglycemia Protocol Stop: 08/13/20 12:14 Diphenhydramine HCl (Diphenhydramine Capsule 25 Mg Cap) 25 mg PO Q6H PRN PRN Reason: Allergy Symptoms Stop: 08/12/20 22:21 Docusate Sodium (Docusate Sodium 100 Mg Cap) 100 mg PO BID [facility]ELA Stop: 08/12/20 22:21 Last Admin: 07/15/20 07:36 Dose: 100 mg Documented by: Enoxaparin Sodium (Enoxaparin 150 Mg/Ml Syr) 127.5 mg SQ DAILY [facility] Stop: 08/13/20 08:59 Last Admin: 07/15/20 07:39 Dose: 127.5 mg Documented by: Fentanyl (Fentanyl 25 Mcg/Hr Tdsy) 25 mcg TD Q3D@1000 [facility] Stop: 07/29/20 09:59 Last Admin: 07/15/20 10:25 Dose: 25 mcg Documented by: Fentanyl (Fentanyl 50 Mcg/Hr Tdsy) 50 mcg TD Q72H [facility] Stop: 08/01/20 09:59 Ferrous Sulfate (Ferrous Sulfate 325 Mg Tab) 325 mg PO QAM [facility] Stop: 08/14/20 08:59 Last Admin: 07/15/20 07:38 Dose: 325 mg Documented by: Gabapentin (Gabapentin 800 Mg Tab) 800 mg PO TID [facility] Stop: 08/12/20 22:21 Last Admin: 07/15/20 13:22 Dose: 800 mg Documented by: Glucagon (Glucagon For Inj 1 Mg Vial) 1 mg SQ UD PRN; Protocol PRN Reason: Hypoglycemia Protocol Stop: 08/13/20 12:14 Glucose (Glucose 10 Tabs/Tube) 4 - 8 tabs PO UD PRN; Protocol PRN Reason: Hypoglycemia Protocol Stop: 08/13/20 12:14 Glucose (Glucose 40% Gel 15 Gm Tube) 15 - 30 gm PO UD PRN; Protocol PRN Reason: Hypoglycemia Protocol Stop: 08/13/20 12:14 Hydromorphone HCl (Hydromorphone Instructional Writer 30 Mg/30 Ml) 30 mg IV PRN PRN; Protocol PRN Reason: [employer] Pain Titration Stop: 07/29/20 08:33 Last Admin: 07/15/20 10:10 Dose: 30 mg Documented by: Hydromorphone HCl (Hydromorphone Bolus From Instructional Writer) 0.5 mg IV Q2H PRN PRN Reason: [employer] pain relief for activity Stop: 07/29/20 08:33 Potassium Chloride/Sodium Chloride (Normal Saline W/20 Meq Kcl) 20 meq in 1,000 mls @ 125 mls/hr IV .Q8H [facility] Stop: 08/12/20 22:21 Last Admin: 07/15/20 12:17 Dose: 125 mls/hr Documented by: Sodium Chloride (Nss 1000ml) 1,000 mls @ 15 mls/hr IV .Q24H [facility] Stop: 07/29/20 08:37 Last Admin: 07/15/20 10:22 Dose: Not Given Documented by: Insulin Aspart (Insulin Aspart 100 Units/Ml 3 Ml Pen) 0 units SC ACHS [facility] Stop: 08/13/20 12:29 Last Admin: 07/15/20 12:08 Dose: Not Given Documented by: Losartan Potassium (Losartan Potassium 25 Mg Tab) 25 mg PO HS [facility] Stop: 08/12/20 22:21 Last Admin: 07/14/20 21:05 Dose: 25 mg Documented by: Methylnaltrexone [place] (Methylnaltrexone [place] 12 Mg/0.6 Ml Vial) 12 mg SQ Q2D PRN PRN Reason: Constipation Stop: 08/14/20 08:44 Mirtazapine (Mirtazapine Tab 15 Mg Tab) 15 mg PO HS [facility] Stop: 08/13/20 20:59 Last Admin: 07/14/20 21:03 Dose: 15 mg Documented by: Miscellaneous (Check Fentanyl Patch Placement) 1 ea N/A QS [facility] Stop: 08/13/20 07:59 Last Admin: 07/15/20 07:38 Dose: 1 ea Documented by: Miscellaneous (Carbohydrates For Hypoglycemia ) 15 - 30 gm PO UD PRN PRN Reason: Hypoglycemia Protocol Stop: 08/13/20 12:14 Miscellaneous (Fentanyl Patch Remove & Waste) 1 ea N/A Q3D@0959 [facility] Stop: 08/17/20 09:58 Miscellaneous (Check Fentanyl Patch Placement) 1 ea N/A QS [facility] Stop: 08/14/20 15:59 Miscellaneous (Lock-Out Instructional Writer Titration ) 1 ea N/A ONCE PRN PRN Reason: [employer] Lock-Out Titration x 1 Stop: 07/29/20 08:33 Miscellaneous (Fentanyl Patch Remove & Waste) 1 ea N/A Q3D@0959 [facility] Stop: 08/12/20 22:28 Multivitamins (Multivitamin Tab) 1 tab PO QDD [facility] Stop: 08/13/20 16:29 Last Admin: 07/14/20 15:32 Dose: 1 tab Documented by: Naloxone HCl (Naloxone Hcl 0.4 Mg/1 Ml Vial/Carp) 0.1 mg IV Q5M PRN PRN Reason: Oversedation/ Resp depression Stop: 08/12/20 22:21 Naloxone HCl (Naloxone Hcl 0.4 Mg/1 Ml Vial/Carp) 0.1 mg IV Q5M PRN; Protocol PRN Reason: Oversedation/Resp Depression Stop: 07/29/20 08:33 Ondansetron HCl (Ondansetron Inj 2 Mg/Ml 2 Ml Vial) 4 mg IV Q6H PRN PRN Reason: Nausea Stop: 08/12/20 22:21 Oxybutynin Chloride (Oxybutynin Chloride Xl 5 Mg Tabcr) 10 mg PO HS [facility] Stop: 08/12/20 22:21 Last Admin: 07/14/20 21:04 Dose: 10 mg Documented by: Oxycodone HCl (Oxycodone Hcl Ir 5 Mg Tab (Immediate Release)) 10 mg PO Q4H PRN PRN Reason: Moderate Pain Stop: 07/27/20 22:21 Last Admin: 07/15/20 06:22 Dose: 10 mg Documented by: Pantoprazole Sodium (Pantoprazole 40 Mg Tab) 40 mg PO QAM [facility] Stop: 08/13/20 08:59 Last Admin: 07/15/20 07:37 Dose: 40 mg Documented by: Polyethylene Glycol (Polyethylene (Miralax) 17 Gm Pack) 17 gm PO BID [facility] Stop: 08/12/20 22:21 Last Admin: 07/15/20 07:39 Dose: 17 gm Documented by: Potassium Chloride (Potassium Chloride 10 Meq Tabcr) 10 meq PO BID [facility] Stop: 08/13/20 20:59 Last Admin: 07/15/20 07:38 Dose: 10 meq Documented by: Promethazine HCl (Promethazine Hcl 25 Mg Tab) 25 mg PO BID PRN PRN Reason: migraine, nausea Stop: 08/12/20 22:21 Rizatriptan Benzoate (Rizatriptan Benzoate 10 Mg Tab) 10 mg PO DAILY PRN PRN Reason: Migraine Headache Stop: 08/12/20 22:21 Sennosides (Senna 8.6 Mg Tab) 17.2 mg PO QAM [facility] Stop: 08/13/20 08:59 Last Admin: 07/15/20 07:36 Dose: 17.2 mg Documented by: Sumatriptan Succinate (Sumatriptan Succinate 6 Mg/0.5 Ml Vial) 6 mg SQ DAILY PRN PRN Reason: Migraine Headache Stop: 08/12/20 22:21 Tizanidine HCl (Tizanidine Hcl 4 Mg Tablet) 4 mg PO QID PRN PRN Reason: muscle spasticity Stop: 08/12/20 22:21 Last Admin: 07/14/20 07:59 Dose: 4 mg Documented by: Topiramate (Topiramate 100 Mg Tab) 100 mg PO DAILY [facility]; Protocol Stop: 08/14/20 08:59 Last Admin: 07/15/20 07:37 Dose: 100 mg Documented by: Venlafaxine HCl (Venlafaxine Hcl Xr 37.5 Mg Capxr) [facility] [place] Stop: 08/13/20 08:59 Last Admin: 07/15/20 07:36 Dose: 37.5 mg Documented by: Venlafaxine HCl (Venlafaxine Hcl Xr 75 Mg Capxr) 75 mg PO QAM [facility] Stop: 08/13/20 08:59 Last Admin: 07/15/20 07:36 Dose: 75 mg Documented by: PG Care Time/CCT Total # of Minutes Spent Total Time Spent: 40 Total Time Spent with Patient: Total time spent is greater than 50% in coordination of care (as documented) at patient's floor/unit and/or counseling patient: 20 minutes on phone with patient's sister Coding Level of Care Code 34438 Subseq Hosp Care Lvl 3 Diagnoses Cancer associated pain G89.3 Pancreatic cancer C25.9 Pancreatic malignancy location: unspecified [place] mesenteric vein thrombosis K55.069 Hypokalemia E87.6 (1) Pancreatic cancer Pancreatic malignancy location: unspecified Qualified Code(s): C25.9 - Malignant neoplasm of pancreas, unspecified
--- NOTE | 2020-07-15 14:52 | Palliative Care Consultation ---
Date of Consultation July 15, 2020 Assessment & Plan (1) Palliative care encounter: This is a 60 year old female known to palliative care from her recent admission, just being discharged two days ago. She unfortunately was recently diagnosed with pancreatic cancer and was admitted last admission and this admission with abdominal pain, nausea and vomiting. She has a 4 cm pancreatic mass with multiple liver lesions as well as a liver hemangioma. Unfortunately, this mass has grown 0.5 cm in one week's time. Her pain is pretty persistent and constant around her mid abdomen and epigastric area. She is to begin chemotherapy July 29. Palliative care was consulted to discuss goals of care, symptom management and pain management. Yaquelin was lying in her bed on her left side when I initially saw her, and when I went back she was sitting with her legs crossed with her sister Araceli and friend at her bedside. See below for intractable pain recommendations and plan. We overall discussed the rapid progression of her cancer. Overall, main focus right now is pain control. She was currently completing advanced directive paperwork through [facility], naming her sister, Araceli, her decision maker in the event she was unable to make decisions for herself. She was able to laugh and seemed quite jovial and positive with her family and friends by her side. We did discuss code status and was clear she would want to be a DNR/DNI in the event of cardiac or respiratory arrest. The above and below was discussed with the hospitalist and behavioral health case manager. (2) Pancreatic cancer: Sees Dr. Marshall with [facility]. Chemotherapy scheduled to start 07/29 Would benefit from Oncology visit while hospitalized to readdress treatment options based on abrupt onset and rapid progression of cancer. (3) Intractable abdominal pain: Previous admission, she received a celiac plexus block, which provided short term relief of about 10 hours. She has the following pain medication regimen: 1. Fentanyl Patch 75 mcg, increased from 50mcg this morning to hopefully produce more long acting relief. 2. Oxycodone 10 mg Q 4 PRN (TWO doses over past 24 hours) 3. Dilaudid STROKE BELT SANDER OPERATOR 0.2 mg with 10 minute lock out. No basal rate. Just since this morning at 1000 since the STROKE BELT SANDER OPERATOR has been initiated she has had 6 attempts and 6 injections with a total utilized 1.2 mg. Will wait to see how the increase in Fentanyl dosing affects her tomorrow, may consider starting a basal dose on her STROKE BELT SANDER OPERATOR, but do not want to start multiple long acting medications on the same day. 4. Gabapentin 800 mg po BID to cover neuropathic component. We did have conversation to determine what an acceptable level of pain is for her. She currently is rating her pain 8/10, but reports it is much improved from when she arrived. I did express that we may not be able to eliminate her pain, but would like to have her determine what an acceptable level of pain would be for her. She expressed that a level 4-5 would be an acceptable level of pain. (4) Thrombus: In discussion with Pain Management, due to new thrombus, any additional neurolytic celiac blockade would require with holding of Lovenox for at least 24-48 hours. (5) Anxiety: Understandably, she has anxiety related to her abrupt diagnosis and aggressive progression of her cancer. Ordered Ativan 1mg PO QHS. (6) Constipation: On Colace 100 mg PO BID, Miralax 17 G BID, Senna 17.2 mg Q AM. History of Present Illness Reason for Consultation: Goals of care Requesting Physician: Maribel Steinberg PA-C Attending Physician: Grady Myers DO History of Present Illness This is a 60 year old female known to palliative care from her recent admission, just being discharged two days ago. She unfortunately was recently diagnosed with pancreatic cancer and was admitted last admission and this admission with abdominal pain, nausea and vomiting. She has a 4 cm pancreatic mass with multiple liver lesions as well as a liver hemangioma. Unfortunately, this mass has grown 0.5 cm in one week's time. Her pain is pretty persistent and constant around her mid abdomen and epigastric area. She is to begin chemotherapy July 29. Palliative care was consulted to discuss goals of care, symptom management and pain management. Please see A/P for further details. Thank you for re-involving palliative care with this individual. Allergies Allergy/AdvReac Type Severity Reaction Status Date / Time latex Allergy Intermediate rash Verified 07/13/20 18:29 sulfamethoxazole Allergy Intermediate itching, Verified 07/13/20 18:29 chest tightness trimethoprim Allergy Intermediate itching, Verified 07/13/20 18:29 chest tightness adhesive Allergy Unknown ITCHY SKIN Verified 07/13/20 18:29 clindamycin AdvReac Severe Diarrhea Verified 07/13/20 18:29 doxycycline AdvReac Intermediate nausea and Verified 07/13/20 18:29 vomiting Home Medications Medication Instructions Recorded Confirmed Type multivitamin 1 tab PO QDD 10/26/18 07/13/20 History atorvastatin 40 mg tablet 40 mg PO DAILY #30 tab 06/20/19 07/13/20 Rx clonazepam 0.5 mg tablet 0.25 mg PO HS PRN tab 01/04/20 07/13/20 History galcanezumab-gnlm 120 mg/mL 120 mg SQ MONTHLY 30 Days #1 ml 01/04/20 07/13/20 Rx subcutaneous pen injector sumatriptan succinate 6 mg/0.5 mL 6 mg SUBCUT .COMPLEX PRN #1 ml 03/18/20 07/13/20 Rx subcutaneous pen injector gabapentin 800 mg tablet 800 mg PO TID #90 tab 04/10/20 07/13/20 Rx topiramate 100 mg capsule 100 mg PO DAILY 90 Days #90 ea 04/10/20 07/13/20 Rx sprinkle,extended release 24 hr buspirone 30 mg PO HS 04/16/20 07/13/20 History chlorpromazine 10 mg PO HS 04/16/20 07/13/20 History promethazine 25 mg tablet 25 mg PO BID PRN #60 tab 04/25/20 07/13/20 Rx tizanidine 4 mg tablet 4 mg PO QID PRN #90 tab 05/01/20 07/13/20 Rx docusate sodium 100 mg PO BID #20 cap 05/15/20 07/13/20 Rx pantoprazole 40 mg PO QAM 30 Days #30 tab 05/15/20 07/13/20 Rx venlafaxine 75 mg capsule,extended 37.5 mg PO QAM cap 05/22/20 07/13/20 History release 24 hr ferrous sulfate 325 mg (65 mg 325 mg PO BID #60 tab 05/23/20 07/13/20 Rx iron) tablet,delayed release acetaminophen [Tylenol Extra 1,000 mg PO DIRECTED PRN 06/12/20 07/13/20 History Strength] diphenhydramine HCl [Benadryl] 25 mg PO Q6H PRN 06/12/20 07/13/20 History naloxone 4 mg/actuation nasal spray 4 mg INTRANASAL Q2M PRN #2 ea 06/24/20 07/13/20 Rx rizatriptan 10 mg tablet 10 mg PO .COMPLEX PRN 90 Days #27 06/24/20 07/13/20 Rx tab ergocalciferol (vitamin D2) 50,000 unit PO FR 07/08/20 07/13/20 History [Vitamin D2] losartan 25 mg PO HS 07/08/20 07/13/20 History oxybutynin chloride 10 mg PO HS 07/08/20 07/13/20 History venlafaxine 75 mg PO QAM 07/08/20 07/13/20 History azithromycin 250 mg PO DAILY 3 Days #3 tab 07/12/20 07/13/20 Rx docusate sodium 100 mg PO BID #60 cap 07/12/20 07/13/20 Rx enoxaparin 127.5 mg SUBCUT DAILY #10 ml 07/12/20 07/13/20 Rx fentanyl 1 patch TRANSDERMAL Q72H #2 ea 07/12/20 07/13/20 Rx metformin 1,000 mg PO HS #60 tab 07/12/20 07/13/20 Rx oxycodone 5 mg PO Q4H PRN #20 tab 07/12/20 07/13/20 Rx polyethylene glycol 3350 [Miralax] 17 g PO BID #30 ea 07/12/20 07/13/20 Rx sennosides [Senokot] 17.2 mg PO QAM #30 tab 07/12/20 07/13/20 Rx Patient History Medical History Abdominal pain Acute pancreatitis Depression (09/09/12) Diabetes Headache History of uterine fibroid Hyperlipidemia Hypertension Hypokalemia Migraine (09/09/12) Nausea & vomiting Pancreatic duct stricture Pancreatitis, acute Panic attack (09/09/12) PMB (postmenopausal bleeding) Thrombus Surgical History 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 Umanzor 07/10/2020 S/P surgical removal of pilonidal cyst Family History Sister Endometrial cancer Arthritis Celiac disease Hypertension Diabetes Mother Hypertension Congestive heart failure (CHF) Kidney failure Heart disease Father Parkinson disease Myocardial infarction Graves disease Skin cancer Denies family history of Ovarian cancer Prostate cancer Breast cancer Colorectal cancer Social History Smoking Status: Former smoker Tobacco Type: Cigarettes Age Started Using Tobacco: 21; Age Quit Using Tobacco: 58; packs per day: 1; Years Smoked: 37; Cigarettes Per Day: 2; Smoking End Date: 06/02/20; Number of Years Since Quit: 1; Second Hand Exposure: No; Hx Alcohol Use: No Hx Substance Use: No Preferred Language: Icelandic Communication Ability: Effective Visual Impairment: No Limitations Hearing Ability: Normal Design Studio Consultant Required: No Beliefs That Will Affect Care: None marital status: Current Living Situation: Family Current Living Situation Comment: sister current occupational status: disabled Other Information That Helps Us Care for You: No Feels Safe at Home: Yes Safety Concerns: Feels Safe At This Time Childhood Exposure to Second-Hand Smoke: No Dental Care, Regularly: No Physical Activity Frequency: Does not Exercise Seatbelt Use: always Sunscreen Use: Yes Assistive Devices: None Review of Systems Review of Systems: [place] System Assessment Scale: Pain: 3/3 Tiredness Physical Exam Constitutional: cooperative and comfortable Neck: trachea midline, no thyromegaly Respiratory: normal respiratory effort Auscultation: + diminished lung sounds Cardiovascular: Rate/Rhythm: regular rate and regular rhythm Heart Sounds: normal S1 and normal S2 Extremities: normal capillary refill; no edema Gastrointestinal (Abdomen): Percussion/Palpation: + abdomen tender (over mid abdomen and epigastric area ) Skin: no rashes, warm and dry normal turgor Psychiatric: A+Ox3, euthymic affect Results & Data ([facility]) Vital Signs (Past 12 Hours) Vital Signs Temp Pulse Resp BP BP Pulse Ox 07/15/20 13:03 36.5 C 83 16 157/85 H 96 07/15/20 11:57 83 16 156/99 H 96 07/15/20 11:00 36.7 C 74 18 155/89 H 98 07/15/20 10:00 78 18 144/88 H 97 07/15/20 07:11 36.5 C 79 18 145/91 H 96 PG Care Time/CCT Total # of Minutes Spent Total Time Spent with Patient: Total time spent is greater than 50% in coordination of care (as documented) at patient's floor/unit and/or counseling patient: Total time spent 100 minutes with > 50% of that time spent assessing the patient, discussing goals of care, providing symptom management and collaborating with IDT Coding Level of Care Code 95515 Inpt Consult Level 4 Diagnoses Palliative care encounter Z51.5 Pancreatic cancer C25.9 Intractable abdominal pain R10.9 Thrombus I82.90 Anxiety F41.9 Constipation K59.00 Time Spent (min) 100
[2020-07-15] MEDS: MULTIVITAMIN TAB PO SCH (16:39)
--- NOTE | 2020-07-15 16:53 | Pain Management Consultation ---
Date of Consultation July 15, 2020 Assessment & Plan (1) Intractable abdominal pain: 1. Discussed this case with the hospitalist and palliative care team today. Recommend increasing fentanyl patch to 75 mcg every 72 hours. In addition recommend hydromorphone GAME MANAGER to better calculate opiate needs over the next 24 hours. As discussed with palliative care they, they will assume titration of opiates at this time. 2. Recommend mag citrate x1 today with Relistor backup if patient is unable to have bowel movement. Orders are written. 3. Patient had significant pain relief with her diagnostic blocks for the duration of the local anesthetic. She would be good candidate for neurolytic celiac block when it is determined she may safely withhold her Lovenox for at least 24 hours. 4. Please reconsult the pain management team should the patient be able to withhold her anticoagulants and have failed fentanyl titration necessitating neurolytic celiac block. 5. Thank you very much for this consultation we are happy to provide assistance as needed, but will step back and allow palliative care to titrate her opiates at this time. 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 She has not started any primary treatment for the pancreatic cancer at this time. During her last hospitalization a diagnostic celiac block provided approximately 7 hours of improved pain control. She was started on fentanyl transdermal 25 mcg/72 hours prior to discharge and was re-admitted with intractable pain, naus ea and vomiting over the weekend. Patient's was increased to 50 mcg every 72 hours and over the last 24 hours she is utilize 8 mg of IV Dilaudid and 20 mg of oral oxycodone. She reports pain between 7 and 8 out of 10 at rest and minimal improvement with activity. She notes she is not had a bowel movement of any significance for approximately 7 days. Her pain is deep and boring characteristic in the mid-epigastric region travelling straight through to thoracic spine region. Palliative care is involved as well as oncology who has intentions of starting chemo 08/02/2020, a port was placed last admission. Pain Assessment Full Body Front + Back: 1. [facility] Combined Pain Scale: 7-Severe - Pain prevents productive activity. Impossible to tolerate. Allergies Allergy/AdvReac Type Severity Reaction Status Date / Time latex Allergy Intermediate rash Verified 07/13/20 18:29 sulfamethoxazole Allergy Intermediate itching, Verified 07/13/20 18:29 chest tightness trimethoprim Allergy Intermediate itching, Verified 07/13/20 18:29 chest tightness adhesive Allergy Unknown ITCHY SKIN Verified 07/13/20 18:29 clindamycin AdvReac Severe Diarrhea Verified 07/13/20 18:29 doxycycline AdvReac Intermediate nausea and Verified 07/13/20 18:29 vomiting Home Medications Medication Instructions Recorded Confirmed Type multivitamin 1 tab PO QDD 10/26/18 07/13/20 History atorvastatin 40 mg tablet 40 mg PO DAILY #30 tab 06/20/19 07/13/20 Rx clonazepam 0.5 mg tablet 0.25 mg PO HS PRN tab 01/04/20 07/13/20 History galcanezumab-gnlm 120 mg/mL 120 mg SQ MONTHLY 30 Days #1 ml 01/04/20 07/13/20 Rx subcutaneous pen injector sumatriptan succinate 6 mg/0.5 mL 6 mg SUBCUT .COMPLEX PRN #1 ml 03/18/20 07/13/20 Rx subcutaneous pen injector gabapentin 800 mg tablet 800 mg PO TID #90 tab 04/10/20 07/13/20 Rx topiramate 100 mg capsule 100 mg PO DAILY 90 Days #90 ea 04/10/20 07/13/20 Rx sprinkle,extended release 24 hr buspirone 30 mg PO HS 04/16/20 07/13/20 History chlorpromazine 10 mg PO HS 04/16/20 07/13/20 History promethazine 25 mg tablet 25 mg PO BID PRN #60 tab 04/25/20 07/13/20 Rx tizanidine 4 mg tablet 4 mg PO QID PRN #90 tab 05/01/20 07/13/20 Rx docusate sodium 100 mg PO BID #20 cap 05/15/20 07/13/20 Rx pantoprazole 40 mg PO QAM 30 Days #30 tab 05/15/20 07/13/20 Rx venlafaxine 75 mg capsule,extended 37.5 mg PO QAM cap 05/22/20 07/13/20 History release 24 hr ferrous sulfate 325 mg (65 mg 325 mg PO BID #60 tab 05/23/20 07/13/20 Rx iron) tablet,delayed release acetaminophen [Tylenol Extra 1,000 mg PO DIRECTED PRN 06/12/20 07/13/20 History Strength] diphenhydramine HCl [Benadryl] 25 mg PO Q6H PRN 06/12/20 07/13/20 History naloxone 4 mg/actuation nasal spray 4 mg INTRANASAL Q2M PRN #2 ea 06/24/20 07/13/20 Rx rizatriptan 10 mg tablet 10 mg PO .COMPLEX PRN 90 Days #27 06/24/20 07/13/20 Rx tab ergocalciferol (vitamin D2) 50,000 unit PO FR 07/08/20 07/13/20 History [Vitamin D2] losartan 25 mg PO HS 07/08/20 07/13/20 History oxybutynin chloride 10 mg PO HS 07/08/20 07/13/20 History venlafaxine 75 mg PO QAM 07/08/20 07/13/20 History azithromycin 250 mg PO DAILY 3 Days #3 tab 07/12/20 07/13/20 Rx docusate sodium 100 mg PO BID #60 cap 07/12/20 07/13/20 Rx enoxaparin 127.5 mg SUBCUT DAILY #10 ml 07/12/20 07/13/20 Rx fentanyl 1 patch TRANSDERMAL Q72H #2 ea 07/12/20 07/13/20 Rx metformin 1,000 mg PO HS #60 tab 07/12/20 07/13/20 Rx oxycodone 5 mg PO Q4H PRN #20 tab 07/12/20 07/13/20 Rx polyethylene glycol 3350 [Miralax] 17 g PO BID #30 ea 07/12/20 07/13/20 Rx sennosides [Senokot] 17.2 mg PO QAM #30 tab 07/12/20 07/13/20 Rx Patient History Medical History Abdominal pain Acute pancreatitis Depression (09/09/12) Diabetes Headache History of uterine fibroid Hyperlipidemia Hypertension Hypokalemia Migraine (09/09/12) Nausea & vomiting Pancreatic duct stricture Pancreatitis, acute Panic attack (09/09/12) PMB (postmenopausal bleeding) Thrombus Surgical History 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 Umanzor 07/10/2020 S/P surgical removal of pilonidal cyst Family History Sister Endometrial cancer Arthritis Celiac disease Hypertension Diabetes Mother Hypertension Congestive heart failure (CHF) Kidney failure Heart disease Father Parkinson disease Myocardial infarction Graves disease Skin cancer Denies family history of Ovarian cancer Prostate cancer Breast cancer Colorectal cancer Social History Smoking Status: Former smoker Tobacco Type: Cigarettes Age Started Using Tobacco: 21; Age Quit Using Tobacco: 58; packs per day: 1; Years Smoked: 37; Cigarettes Per Day: 2; Smoking End Date: 06/02/20; Number of Years Since Quit: 1; Second Hand Exposure: No; Hx Alcohol Use: No Hx Substance Use: No Preferred Language: Spanish Communication Ability: Effective Visual Impairment: No Limitations Hearing Ability: Normal Printer Maintainer Required: No Beliefs That Will Affect Care: None marital status: Current Living Situation: Family Current Living Situation Comment: sister current occupational status: disabled Other Information That Helps Us Care for You: No Feels Safe at Home: Yes Safety Concerns: Feels Safe At This Time Childhood Exposure to Second-Hand Smoke: No Dental Care, Regularly: No Physical Activity Frequency: Does not Exercise Seatbelt Use: always Sunscreen Use: Yes Assistive Devices: None Physical Exam Physical Exam: Constitutional: Well-developed, well-nourished, deconditioned Psych: Awake, alert, and oriented 3 with normal affect and mood. Recent memory appears grossly intact Eyes: Pupils are equally round and reactive to light with normal size pupils, eyelids appear normal Ear, nose, mouth, and throat: Moist nasal and oral membranes, lips and tongues appear normal, no external ear abnormalities are noted Neck: The trachea is midline without deviation and no thyromegaly is noted Respiratory: Normal respiratory effort without distress, no audible wheezes or rhonchi CV: Normal S1 and S2, no edema Chest: Deferred GI/abdomen: moderately tender over the epigastrium. Musculoskeletal: Head is normocephalic and atraumatic, gait not observed Cervical: Lordotic curve: Normal Range of motion is normal with extension, flexion, side-bending, rotation Strength: Strength is grossly equal bilaterally with 5 out of 5 strength in all planes Lumbar: Lordotic curve: Normal Range of motion is normal with extension, flexion, side-bending, rotation Strength: Strength is distally equal bilaterally with 5 out of 5 strength in all planes Skin: No rashes, lesions, ulcers, or induration noted Neuro: No nystagmus noted, the tongue is midline, the patient is able to rotate their head bilaterally : Deferred Results ([facility]) Diagnostic Review CT: enhanced, non enhanced, reports reviewed and findings discussed with patient CT Findings: 07/13/[address] WITH IV CONTRAST CT DOSE: 1054.83 mGycm HISTORY: epigastric pain hx pancreatic ca TECHNIQUE: Multiaxial CT images of the abdomen and pelvis were performed following the use of intravenous contrast. A dose lowering technique was utilized adhering to the principles of ALARA. COMPARISON STUDY: Abdomen and pelvis CT 07/08/2020. FINDINGS: Lower chest: There is elevation of the left hemidiaphragm. Stable right lung pulmonary nodules are again noted. Liver: Stable hepatic lesions with the largest in the right hepatic lobe measuring 3.7 cm. These are consistent with a combination of hemangiomas and focal fat as seen on the prior MRI. Gallbladder: Not visualized presumed surgically absent Spleen: There is stable 33 mm hypodense splenic lesion. Pancreas: There is pancreatic ductal dilatation. There is a heterogeneous 4.5 cm ill-defined pancreatic head mass. There is a loss of the normal fat plane betw een the pancreas and duodenum. Adrenal glands: Unremarkable. Kidneys: There is symmetric renal cortical enhancement. The kidneys are normal in size without hydronephrosis. There are few left renal calculi, unchanged. Bowel: There are no transition zones indicate bowel obstruction. There is no antionette dence of acute diverticulitis. There is no evidence of acute appendicitis. Peritoneum: There is no intraperitoneal free air or abdominal ascites. Vasculature: The abdominal aorta is normal in course and caliber. There is hazy infiltration surrounding the superior mesenteric artery. Interval development of focal occlusion of a proximal branch of the superior mesenteric vein adjacent to the pancreatic head mass. This is likely due to tumor infiltration. The mid to distal branches of the superior mesenteric vein remain patent. Adenopathy: There are borderline enlarged peripancreatic lymph nodes Pelvic viscera: The bladder, and pelvic viscera are unremarkable. Skeletal structures: No destructive osseous lesions are seen. IMPRESSION: 1. Redemonstration of a 4.5 cm ill-defined pancreatic head mass 2. Interval development of focal occlusion of a proximal branch of the superior mesenteric vein adjacent to the pancreatic head mass. This is likely due to tumor infiltration. The mid to distal branches of the superior mesenteric vein remain patent. 3. Stable hepatic lesions as described above. 4. No evidence of bowel obstruction. No evidence of free air 5. No evidence of acute appendicitis. No evidence of acute diverticulitis.
[2020-07-15] MEDS: OXYBUTYNIN CHLORIDE XL 5 MG TABCR PO SCH (20:04)
[2020-07-15] MEDS: LOSARTAN POTASSIUM 25 MG TAB PO SCH (20:04)
[2020-07-15] MEDS: MIRTAZAPINE TAB 15 MG TAB PO SCH (20:04)
[2020-07-15] MEDS: chlorproMAZINE HCL 10 MG TAB PO SCH (20:04)
[2020-07-15] MEDS: busPIRone 15 MG TAB PO SCH (20:05)
[2020-07-15] MEDS: LORazepam 1 MG TAB PO SCH (21:26)
[2020-07-16] MEDS: NSS + 20MEQ KCL 20 MEQ/1,000 ML BAG IV SCH ×3 (03:56→20:38)
[2020-07-16] MEDS: POLYETHYLENE (MIRALAX) 17 GM PACK PO SCH ×2 (08:50→21:23)
[2020-07-16] MEDS: FERROUS SULFATE 325 MG TAB PO SCH (08:51)
[2020-07-16] MEDS: SENNA 8.6 MG TAB PO SCH (08:52)
[2020-07-16] MEDS: ATORVASTATIN 40 MG TAB PO SCH (08:52)
[2020-07-16] MEDS: tiZANidine HCL 4 MG TABLET PO PRN ×2 (08:52→21:22)
[2020-07-16] MEDS: PANTOprazole 40 MG TAB PO SCH (08:53)
[2020-07-16] MEDS: VENLAFAXINE HCL XR 37.5 MG CAPXR PO SCH (08:53)
[2020-07-16] MEDS: TOPIRAMATE 100 MG TAB PO SCH (08:53)
[2020-07-16] MEDS: AZITHROMYCIN 250 MG TAB PO SCH (08:53)
[2020-07-16] MEDS: VENLAFAXINE HCL XR 75 MG CAPXR PO SCH (08:53)
[2020-07-16] MEDS: GABAPENTIN 800 MG TAB PO SCH ×3 (08:54→21:21)
[2020-07-16] MEDS: POTASSIUM CHLORIDE 10 MEQ TABCR PO SCH ×2 (08:54→21:22)
[2020-07-16] MEDS: DOCUSATE SODIUM 100 MG CAP PO SCH ×2 (08:54→21:21)
[2020-07-16] MEDS: SODIUM CHLORIDE 0.9% 1000ML 1,000 ML IV SCH (08:55)
[2020-07-16] MEDS: ENOXAPARIN 150 MG/ML SYR SQ SCH (08:55)
[2020-07-16] MEDS: INSULIN ASPART 100 UNITS/ML 3 ML PEN SC SCH ×4 (08:58→21:00)
[2020-07-16] MEDS: CHECK fentaNYL PATCH PLACEMENT SCH ×4 (08:59→16:26)
--- NOTE | 2020-07-16 12:28 | Palliative Care Progress Note ---
Date of Service July 16, 2020 Assessment & Plan (1) Intractable abdominal pain: Initial relief with celiac plexus block. Fentanyl increased from 25 to 75 mcg. Will increase hydromorphone bolus dose and hold oxycodone for now until pain controlled. She is on adjuvant gabapentin for neuropathic pain. Her chronic back pain is also a factor in this. Will add lidoderm patch to low back. (2) Anxiety: She is on clonazepam BID. Will increase to TID. She has an upcoming appointment with her psychiatrist. She is also on venlafaxine and buspirone. (3) Constipation: No results with mag citrate. Will try relistor today. This is likely contributing to pain. (4) Palliative care encounter: We reviewed significant increase in tumor size in one week and discussed concerns about prognosis. She is appropriately tearful. Her immediate response was "we have to hurry up and start chemo". I asked her if her time were short, what would be most important to her. She told me again that being able to go to [place] to say goodbye to friends was the most important thing to her. We discussed that over time, she will likely feel weaker and may be less able to t ravel. We talked about what would a life worth living look like to her and the balance between time and how she may feel with chemo. She would like to discuss with oncology to know better what to expect. She does tell me that she thinks that she would regret not trying chemotherapy. Palliative care will follow. (5) Pancreatic cancer: Admission and Anticipated Discharge Date Admission Date: July 13, 2020 Subjective Sitting up in bed. She c/o low back pain which is chronic for her and abdominal pain. Pain is currently 8/10. She doesn't notice much difference with dilaudid focus puller bolus doses. She had six doses with nine attempts when pump was last cleared at 330 am per RN. Still no bm. She did have mag citrate yesterday. Review of Systems Review of Systems: [place] Symptom Assessment Scale Pain 3/3 Dyspnea 0/3 Nausea 0/3 Anorexia 2/3 Fatigue 2/3 Anxiety 2/3 Drowsiness 1/3 Palliative Performance Score 60^ Physical Exam Constitutional: no acute distress Respiratory: normal respiratory effort; no labored breathing Cardiovascular: Extremities: no edema Gastrointestinal (Abdomen): Inspection/Auscultation: abdomen not distended Percussion/Palpation: + abdomen tender Musculoskeletal: Spine: normal thoraco-lumbar ROM Extremities: extremities normal to inspection Neurologic: PERRL, EOMI, accommodation nl, no face palsy, no dysarthria Psychiatric: Orientation: alert and oriented x 3 Affect: + anxious affect and + tearful affect Results & Data ([facility]) Vital Signs (Past 12 Hours) Vital Signs Temp Pulse Resp BP Pulse Ox 07/16/20 07:15 98.1 F 74 12 131/80 96 PG Care Time/CCT Total # of Minutes Spent Total Time Spent with Patient: Total time spent is greater than 50% in coordination of care (as documented) at patient's floor/unit and/or counseling patient:45 minutes total time with more than 50% spent on symptom management, goals of care and coordination of care Coding Level of Care Code 43323 Subseq Hosp Care Lvl 3 Diagnoses Intractable abdominal pain R10.9 Anxiety F41.9 Constipation K59.00 Palliative care encounter Z51.5 Pancreatic cancer C25.9 Time Spent (min) 45
[2020-07-16] MEDS: clonazePAM 0.25 MG TAB PO PRN (14:18)
[2020-07-16] MEDS ORDERED: HYDROmorphone Bolus from PCA IV PRN (16:11)
--- NOTE | 2020-07-16 17:23 | Hospitalist Progress Note ---
Date of Service July 16, 2020 Assessment & Plan (1) Cancer associated pain: * Pancreatic cancer associated pain/status post celiac plexus block on July 11 continue Fentanyl at 75mcg Dilaudid basal dosing and bolus with WHARF BUILDER pain is down to 7 out of 10, some progress, not good enough to discharge discussed another block with Dr. Ca, opting to using medications, don't want to hold Lovenox at this time, I agree * Continue gabapentin 800mg TID * Lidoderm patch added for low back pain short term goal is to get pain under control, get to oncology visit on Wednesday07/19/20 d/w Dr. Lara on 07/16, hopeful that chemotherapy could help pain control (2) Pancreatic cancer: * See above * advance to regular consistency diet, she is hungry today * CT with progression to 4.5cm pancreatic mass from 4cm on previous imaging last month spoke with Dr. 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 initially on coumadin. INR >10 last admission requiring reversal and was switched to Lovenox per discussion with Dr. Haq during last admission * Continue enoxaparin 127.5 mg subcu daily * the thrombosis is most likely rental representative of local invasion of tumor, as there is no clot in other portions of vein (4) Hypokalemia: * Potassium 3.0 upon admission * up to 4.1 yesterday * repeat labs tomorrow HTN/HLD * -- Continue losartan, atorvastatin daily * BP elevated in setting of pain -- monitor as pain controlled Pulmonary Abn * -- Noted last admission, pulm consulted and felt infectious on CT compared to imaging on admission and rec for Zpack x 5 days * finish course while here * No sob/cp reported or cough. Stable on RA Anxiety/Depression * - continue buspar * -- continue klonopin but increase to TID * -- Ativan PRN ordered per palliative care DM II * --pre-DM * -- new last admission, likely from panc insuff 2nd to ca * --ISS while inpatient * --Holding metformin * Monitor BSGs GERD * Continue protonix 40mg daily DVT Proph * --Lovenox as above Admission and Anticipated Discharge Date Admission Date: July 13, 2020 Subjective patient says her pain is down to 7 out of 10, it was more like a 12 when she was admitted, so some progress she has mild nausea but no vomiting, she would like to try more solid food, will change diet right now she is on Dilaudid WHARF BUILDER with basal dosing, Fentanyl patch, gabapentin, Klonopin TID her anxiety is somewhat controlled appreciate palliative care note, working on pain control, they have been discussing goals of care I spoke with [facility] oncology DESKTOP ANALYST this morning, they can see the patient on Wednesday for visit, consider starting chemo on Saturday 07/22 I updated patient's sister Soha, she would really like oncology input I spoke with Dr. Lara over the phone, discussed her situation, advancing tumor, severe pain, weight loss he feels that we can try chemo as a way to help pain, treat symptoms, treatment is palliative in nature I spoke with Soha again, she agrees with the visit on Wednesday, try to get pain under control I visited with patient, she knows the plan for pain control by Wednesday, get her to oncology clinic Review of Systems Review of Systems: All systems reviewed & are unremarkable except as noted in Subjective Constitutional: + fatigue and + weakness; no fever, no chills and no sweats Respiratory: no cough and no dyspnea Cardiovascular: no chest pain, no palpitations and no edema Gastrointestinal: + abdominal pain (severe, 7 out of 10), + nausea and + constipation; no vomiting and no diarrhea/loose stools Physical Exam Constitutional: well developed, + thin and + frail appearing; no acute distress and + uncomfortable Neck: trachea midline, no thyromegaly Respiratory: normal respiratory effort, lungs clear to auscultation Cardiovascular: RRR, no murmur, no edema Gastrointestinal (Abdomen): Inspection/Auscultation: abdomen normal to inspection and normal bowel sounds Percussion/Palpation: + abdomen tender (very tender in epigastric region), abdomen soft and normal to percussion; no guarding, abdomen not rigid and no ascites Musculoskeletal: Head/Neck/Chest: normocephalic, head atraumatic and neck supp le Extremities: + abnormal strength and + muscle atrophy; no cyanosis, no clubbing and no petechiae Skin: no rashes, warm and dry Neurologic: patellar DTR's 2+ bilat, sensation intact and PERRL, EOMI, accommodation nl, no face palsy, no dysarthria Psychiatric: Orientation: alert and oriented x 3 Affect: + anxious affect Mood: + anxious mood Lymphatic: no cervical or axillary lymphadenopathy Results & Data Results & Data ([facility]) Vital Signs (Past 12 Hours) Vital Signs Temp Pulse Resp BP BP Pulse Ox 07/16/20 15:00 36.6 C 80 16 130/83 95 07/16/20 12:32 36.7 C 73 16 118/83 96 07/16/20 07:15 36.7 C 74 12 131/80 96 Laboratory Results Laboratory Results - last 24 hr 07/15/20 07/16/20 07/16/20 20:46 08:33 11:48 POC Glucose 119 H 141 H 112 H 07/16/20 16:54 POC Glucose 98 Medications Administered Current Inpatient Medications Acetaminophen (Acetaminophen 325 Mg Tab) 650 mg PO Q4H PRN PRN Reason: mild pain/fever Stop: 08/12/20 22:21 Last Admin: 07/14/20 21:02 Dose: 650 mg Documented by: Atorvastatin Calcium (Atorvastatin 40 Mg Tab) 40 mg PO DAILY [facility] Stop: 08/13/20 08:59 Last Admin: 07/16/20 08:52 Dose: 40 mg Documented by: Buspirone HCl (Buspirone 15 Mg Tab) 30 mg PO HS [facility] Stop: 08/12/20 22:21 Last Admin: 07/15/20 20:05 Dose: 30 mg Documented by: Chlorpromazine HCl (Chlorpromazine Hcl 10 Mg Tab) 10 mg PO HS [facility] Stop: 08/12/20 22:21 Last Admin: 07/15/20 20:04 Dose: 10 mg Documented by: Clonazepam (Clonazepam 0.25 Mg Tab) 0.25 mg PO TID PRN PRN Reason: Anxiety Stop: 08/12/20 20:59 Dextrose (Dextrose 50% 50 Ml Syringe) 25 - 50 ml IV UD PRN; Protocol PRN Reason: Hypoglycemia Protocol Stop: 08/13/20 12:14 Diphenhydramine HCl (Diphenhydramine Capsule 25 Mg Cap) 25 mg PO Q6H PRN PRN Reason: Allergy Symptoms Stop: 08/12/20 22:21 Docusate Sodium (Docusate Sodium 100 Mg Cap) 100 mg PO BID [facility] Stop: 08/12/20 22:21 Last Admin: 07/16/20 08:54 Dose: 100 mg Documented by: Enoxaparin Sodium (Enoxaparin 150 Mg/Ml Syr) 127.5 mg SQ DAILY [facility] Stop: 08/13/20 08:59 Last Admin: 07/16/20 08:55 Dose: 127.5 mg Documented by: Fentanyl (Fentanyl 25 Mcg/Hr Tdsy) 25 mcg TD Q3D@1000 [facility] Stop: 07/29/20 09:59 Last Admin: 07/15/20 10:25 Dose: 25 mcg Documented by: Fentanyl (Fentanyl 50 Mcg/Hr Tdsy) 50 mcg TD Q72H [facility] Stop: 08/01/20 09:59 Ferrous Sulfate (Ferrous Sulfate 325 Mg Tab) 325 mg PO QAM [facility] Stop: 08/14/20 08:59 Last Admin: 07/16/20 08:51 Dose: 325 mg Documented by: Gabapentin (Gabapentin 800 Mg Tab) 800 mg PO TID [facility] Stop: 08/12/20 22:21 Last Admin: 07/16/20 14:14 Dose: 800 mg Documented by: Glucagon (Glucagon For Inj 1 Mg Vial) 1 mg SQ UD PRN; Protocol PRN Reason: Hypoglycemia Protocol Stop: 08/13/20 12:14 Glucose (Glucose 10 Tabs/Tube) 4 - 8 tabs PO UD PRN; Protocol PRN Reason: Hypoglycemia Protocol Stop: 08/13/20 12:14 Glucose (Glucose 40% Gel 15 Gm Tube) 15 - 30 gm PO UD PRN; Protocol PRN Reason: Hypoglycemia Protocol Stop: 08/13/20 12:14 Hydromorphone HCl (Hydromorphone Rounding And Backing Machine Operator 30 Mg/30 Ml) 30 mg IV PRN PRN; Protocol PRN Reason: WHARF BUILDER Pain Titration Stop: 07/29/20 08:33 Last Admin: 07/15/20 10:10 Dose: 30 mg Documented by: Hydromorphone HCl (Hydromorphone Bolus From Rounding And Backing Machine Operator) 0.5 mg IV Q1H PRN PRN Reason: WHARF BUILDER pain relief for activity Stop: 07/29/20 08:33 Potassium Chloride/Sodium Chloride (Normal Saline W/20 Meq Kcl) 20 meq in 1,000 mls @ 125 mls/hr IV .Q8H [facility] Stop: 08/12/20 22:21 Last Admin: 07/16/20 12:20 Dose: 125 mls/hr Documented by: Sodium Chloride (Nss 1000ml) 1,000 mls @ 15 mls/hr IV .Q24H [facility] Stop: 07/29/20 08:37 Last Admin: 07/16/20 08:55 Dose: Not Given Documented by: Insulin Aspart (Insulin Aspart 100 Units/Ml 3 Ml Pen) 0 units SC ACHS [facility] Stop: 08/13/20 12:29 Last Admin: 07/16/20 12:21 Dose: Not Given Documented by: Lidocaine (Lidocaine 5% 1 Patch) 1 patch TD QAM [facility] Stop: 08/16/20 08:59 Lorazepam (Lorazepam 1 Mg Tab) 1 mg PO HS [facility] Stop: 08/14/20 20:59 Last Admin: 07/15/20 21:26 Dose: 1 mg Documented by: Losartan Potassium (Losartan Potassium 25 Mg Tab) 25 mg PO [facility] Stop: 08/12/20 22:21 Last Admin: 07/15/20 20:04 Dose: 25 mg Documented by: Methylnaltrexone [place] (Methylnaltrexone [place] 12 Mg/0.6 Ml Vial) 12 mg SQ Q2D PRN PRN Reason: Constipation Stop: 08/14/20 08:44 Mirtazapine (Mirtazapine Tab 15 Mg Tab) 15 mg PO HS [facility] Stop: 08/13/20 20:59 Last Admin: 07/15/20 20:04 Dose: 15 mg Documented by: Miscellaneous (Check Fentanyl Patch Placement) 1 ea N/A QS [facility] Stop: 08/13/20 07:59 Last Admin: 07/16/20 16:26 Dose: 1 ea Documented by: Miscellaneous (Carbohydrates For Hypoglycemia ) 15 - 30 gm PO UD PRN PRN Reason: Hypoglycemia Protocol Stop: 08/13/20 12:14 Miscellaneous (Fentanyl Patch Remove & Waste) 1 ea N/A Q3D@0959 [facility] Stop: 08/17/20 09:58 Miscellaneous (Check Fentanyl Patch Placement) 1 ea N/A QS [facility] Stop: 08/14/20 15:59 Last Admin: 07/16/20 16:26 Dose: 1 ea Documented by: Miscellaneous (Lock-Out Rounding And Backing Machine Operator Titration ) 1 ea N/A ONCE PRN PRN Reason: WHARF BUILDER Lock-Out Titration x 1 Stop: 07/29/20 08:33 Miscellaneous (Fentanyl Patch Remove & Waste) 1 ea N/A Q3D@0959 [facility] Stop: 08/12/20 22:28 Miscellaneous (Remove Lidoderm Patch) 1 ea N/A DAILY@2100 [facility] Stop: 08/16/20 20:59 Multivitamins (Multivitamin Tab) 1 tab PO QDD [facility] Stop: 08/13/20 16:29 Last Admin: 07/15/20 16:39 Dose: 1 tab Documented by: Naloxone HCl (Naloxone Hcl 0.4 Mg/1 Ml Vial/Carp) 0.1 mg IV Q5M PRN PRN Reason: Oversedation/ Resp depression Stop: 08/12/20 22:21 Naloxone HCl (Naloxone Hcl 0.4 Mg/1 Ml Vial/Carp) 0.1 mg IV Q5M PRN; Protocol PRN Reason: Oversedation/Resp Depression Stop: 07/29/20 08:33 Ondansetron HCl (Ondansetron Inj 2 Mg/Ml 2 Ml Vial) 4 mg IV Q6H PRN PRN Reason: Nausea Stop: 08/12/20 22:21 Oxybutynin Chloride (Oxybutynin Chloride Xl 5 Mg Tabcr) 10 mg PO HS [facility] Stop: 08/12/20 22:21 Last Admin: 07/15/20 20:04 Dose: 10 mg Documented by: Pantoprazole Sodium (Pantoprazole 40 Mg Tab) 40 mg PO QAM [facility] Stop: 08/13/20 08:59 Last Admin: 07/16/20 08:53 Dose: 40 mg Documented by: Polyethylene Glycol (Polyethylene (Miralax) 17 Gm Pack) 17 gm PO BID [facility] Stop: 08/12/20 22:21 Last Admin: 07/16/20 08:50 Dose: 17 gm Documented by: Potassium Chloride (Potassium Chloride 10 Meq Tabcr) 10 meq PO BID [facility] Stop: 08/13/20 20:59 Last Admin: 07/16/20 08:54 Dose: 10 meq Documented by: Promethazine HCl (Promethazine Hcl 25 Mg Tab) 25 mg PO BID PRN PRN Reason: migraine, nausea Stop: 08/12/20 22:21 Rizatriptan Benzoate (Rizatriptan Benzoate 10 Mg Tab) 10 mg PO DAILY PRN PRN Reason: Migraine Headache Stop: 08/12/20 22:21 Sennosides (Senna 8.6 Mg Tab) [facility] [place] [facility] Stop: 08/13/20 08:59 Last Admin: 07/16/20 08:52 Dose: 17.2 mg Documented by: Sumatriptan Succinate (Sumatriptan Succinate 6 Mg/0.5 Ml Vial) 6 mg SQ DAILY PRN PRN Reason: Migraine Headache Stop: 08/12/20 22:21 Tizanidine HCl (Tizanidine Hcl 4 Mg Tablet) 4 mg PO QID PRN PRN Reason: muscle spasticity Stop: 08/12/20 22:21 Last Admin: 07/16/20 08:52 Dose: 4 mg Documented by: Topiramate (Topiramate 100 Mg Tab) 100 mg PO DAILY [facility]; Protocol Stop: 08/14/20 08:59 Last Admin: 07/16/20 08:53 Dose: 100 mg Documented by: Venlafaxine HCl (Venlafaxine Hcl Xr 37.5 Mg Capxr) [facility] [place] Stop: 08/13/20 08:59 Last Admin: 07/16/20 08:53 Dose: 37.5 mg Documented by: Venlafaxine HCl (Venlafaxine Hcl Xr 75 Mg Capxr) 75 mg PO [facility] Stop: 08/13/20 08:59 Last Admin: 07/16/20 08:53 Dose: 75 mg Documented by: PG Care Time/CCT Total # of Minutes Spent Total Time Spent: 40 Total Time Spent with Patient: Total time spent is greater than 50% in coordination of care (as documented) at patient's floor/unit and/or counseling patient: Coding Level of Care Code 98456 Subseq Hosp Care Lvl 3 Diagnoses Cancer associated pain G89.3 Pancreatic cancer C25.9 Pancreatic malignancy location: unspecified Superior mesenteric vein thrombosis K55.069 Hypokalemia E87.6 (1) Pancreatic cancer Pancreatic malignancy location: unspecified Qualified Code(s): C25.9 - Malignant neoplasm of pancreas, unspecified
[2020-07-16] MEDS: MULTIVITAMIN TAB PO SCH (17:47)
[2020-07-16] MEDS ORDERED: clonazePAM 0.25 MG TAB PO PRN (21:00)
[2020-07-16] MEDS: MIRTAZAPINE TAB 15 MG TAB PO SCH (21:20)
[2020-07-16] MEDS: LORazepam 1 MG TAB PO SCH (21:20)
[2020-07-16] MEDS: busPIRone 15 MG TAB PO SCH (21:21)
[2020-07-16] MEDS: LOSARTAN POTASSIUM 25 MG TAB PO SCH (21:22)
[2020-07-16] MEDS: chlorproMAZINE HCL 10 MG TAB PO SCH (21:22)
[2020-07-16] MEDS: OXYBUTYNIN CHLORIDE XL 5 MG TABCR PO SCH (21:24)
[2020-07-17] MEDS: CHECK fentaNYL PATCH PLACEMENT SCH ×6 (00:10→15:47)
[2020-07-17] MEDS ORDERED: HEPARIN 100 UNIT/ML 5ML FLUSH FLUSH PRN (01:04)
[2020-07-17] MEDS: NSS + 20MEQ KCL 20 MEQ/1,000 ML BAG IV SCH (05:02)
[2020-07-17 08:36] LABS: Hematocrit (blood only) 35.4 % (37-47); Hemoglobin 11.9 g/dL (12.0-16.0); Mean Corpuscular Hemoglobin 28.3 pg (25-34); Mean Corpuscular Hgb Conc 33.6 g/dL (32-36); Mean Corpuscular Volume 84.3 fL (80-100); Mean Platelet Volume 10.5 fL (7.4-10.4); Platelet Count 135 K/uL (130-400); RDW Coefficient of Variation 14.4 % (11.5-14.5); RDW Standard Deviation 43.7 fL (36.4-46.3); White Blood Count 3.57 K/uL (4.8-10.8)
[2020-07-17] MEDS: LIDOCAINE 5% 1 PATCH TD SCH (08:51)
[2020-07-17] MEDS: POTASSIUM CHLORIDE 10 MEQ TABCR PO SCH ×2 (08:51→20:14)
[2020-07-17] MEDS: DOCUSATE SODIUM 100 MG CAP PO SCH ×2 (08:51→20:15)
[2020-07-17] MEDS: GABAPENTIN 800 MG TAB PO SCH ×3 (08:51→20:16)
[2020-07-17] MEDS: POLYETHYLENE (MIRALAX) 17 GM PACK PO SCH ×2 (08:51→20:16)
[2020-07-17] MEDS: SENNA 8.6 MG TAB PO SCH (08:52)
[2020-07-17] MEDS: FERROUS SULFATE 325 MG TAB PO SCH (08:52)
[2020-07-17] MEDS: VENLAFAXINE HCL XR 37.5 MG CAPXR PO SCH (08:52)
[2020-07-17] MEDS: TOPIRAMATE 100 MG TAB PO SCH (08:52)
[2020-07-17] MEDS: PANTOprazole 40 MG TAB PO SCH (08:52)
[2020-07-17] MEDS: ENOXAPARIN 150 MG/ML SYR SQ SCH (08:53)
[2020-07-17] MEDS: VENLAFAXINE HCL XR 75 MG CAPXR PO SCH (08:53)
[2020-07-17] MEDS: ATORVASTATIN 40 MG TAB PO SCH (08:53)
[2020-07-17] MEDS: SODIUM CHLORIDE 0.9% 1000ML 1,000 ML IV SCH (08:55)
[2020-07-17] MEDS: INSULIN ASPART 100 UNITS/ML 3 ML PEN SC SCH ×4 (08:56→22:32)
[2020-07-17 09:02] LABS: Albumin Level 3.5 gm/dl (3.4-5.0); Calcium 8.7 mg/dl (8.5-10.1); Creatinine Clr Calc Pharmacy 118.5 ml/min; Est GFR (Non-African American) 102.7; Potassium 4.1 mmol/L (3.5-5.1)
[2020-07-17 09:05] LABS: Albumin Globulin Ratio 1.4 (0.9-2); Bilirubin,Total 0.4 mg/dl (0.2-1); Globulin 2.6 gm/dl (2.5-4.0); Total Protein 6.1 gm/dl (6.4-8.2)
--- NOTE | 2020-07-17 10:32 | Palliative Care Progress Note ---
Date of Service July 17, 2020 Assessment & Plan (1) Intractable abdominal pain: With neuropathic component. Pain resolved completely with celiac plexus block. She is on gabapentin. Will add methadone low dose. EKG reviewed. QTc 439. She is also on low dose thorazine. Phenergan discontinued. Will monitor. Start po hydromorphone to simulate medications for discharge. Will d/c POST CLOSER and continue IV bolus prn if po medication ineffective. (2) Anxiety: Improved with increased clonazepam (3) Constipation: Relistor today (4) Palliative care encounter: Admission and Anticipated Discharge Date Admission Date: July 13, 2020 Subjective Still having epigastric pain which she describes as a constant aching pain. Pain is down from 8 to 7/10. She doesn't notice much relief with hydromorphone. She has had 9 doses with 14 attempts since 5 pm last night. Review of Systems Review of Systems: [place] Symptom Assessment Scale Pain 3/3 Dyspnea 0/3 Nausea 0/3 Fatigue 1/3 Drowsiness 0/3 Anxiety 1/3 Palliative Performance Score 60% Physical Exam Constitutional: no acute distress Respiratory: normal respiratory effort; no labored breathing Cardiovascular: Extremities: no edema Gastrointestinal (Abdomen): Percussion/Palpation: abdomen soft epigastric tenderness Musculoskeletal: Extremities: extremities normal to inspection Skin: warm and dry Neurologic: no focal motor deficits Psychiatric: Orientation: alert and oriented x 3 Results & Data ([facility]) Vital Signs (Past 12 Hours) Vital Signs Temp Pulse Resp BP Pulse Ox 07/17/20 07:00 97.7 F 74 16 152/90 H 99 07/17/20 03:00 98.8 F 77 20 132/75 95 07/16/20 23:48 98.4 F 77 15 108/70 96 PG Care Time/CCT Total # of Minutes Spent Total Time Spent with Patient: Total time spent is greater than 50% in coordination of care (as documented) at patient's floor/unit and/or counseling patient: total time spent 40 minutes with more than 50% of time spent on symptom management and coordination of care Coding Level of Care Code 91343 Subseq Hosp Care Lvl 3 Diagnoses Intractable abdominal pain R10.9 Anxiety F41.9 Constipation K59.00 Palliative care encounter Z51.5
[2020-07-17] MEDS ORDERED: HYDROmorphone Bolus from PCA IV PRN (10:51)
[2020-07-17] MEDS ORDERED: METHYLNALTREXONE BROMIDE 12 MG/0.6 ML VIAL SQ ONE (11:00)
[2020-07-17] MEDS ORDERED: HYDROmorphone INJ 0.5 MG/0.5 ML SYR IV PRN ×2 (11:12→14:08)
[2020-07-17] MEDS: HYDROmorphone HCL 2 MG TAB PO PRN ×2 (12:36→20:13)
[2020-07-17] MEDS: ONDANSETRON INJ 2 MG/ML 2 ML VIAL IV PRN (12:36)
[2020-07-17] MEDS: METHADONE HCL 5 MG TAB PO SCH ×2 (12:51→21:06)
[2020-07-17] MEDS: tiZANidine HCL 4 MG TABLET PO PRN ×2 (15:48→20:14)
[2020-07-17] MEDS: MULTIVITAMIN TAB PO SCH (15:49)
[2020-07-17] MEDS ORDERED: bisacodyL 10 MG SUPP PR PRN (16:37)
[2020-07-17] MEDS ORDERED: LACTULOSE SYRUP 20 GM/30 ML UDC PO ONE (16:37)
[2020-07-17] MEDS: OXYBUTYNIN CHLORIDE XL 5 MG TABCR PO SCH (20:13)
[2020-07-17] MEDS: LORazepam 1 MG TAB PO SCH (20:13)
[2020-07-17] MEDS: chlorproMAZINE HCL 10 MG TAB PO SCH (20:14)
[2020-07-17] MEDS: LOSARTAN POTASSIUM 25 MG TAB PO SCH (20:15)
[2020-07-17] MEDS: busPIRone 15 MG TAB PO SCH (20:15)
[2020-07-17] MEDS: MIRTAZAPINE TAB 15 MG TAB PO SCH (20:15)
--- NOTE | 2020-07-17 23:06 | Hospitalist Progress Note ---
Date of Service July 17, 2020 Assessment & Plan (1) Cancer associated pain: * Pancreatic cancer associated pain/status post celiac plexus block on July 11 continue Fentanyl at 75mcg Dilaudid basal dosing and bolus with HIGH CLIMBER - transitioned off HIGH CLIMBER today Methadone 2.5mg BID and Dilaudid PO q4 pain is moderately well controlled * Continue gabapentin 800mg TID * Lidoderm patch added for low back pain short term goal is to get pain under control, get to oncology visit on Wednesday07/19/20 d/w Dr. Lara on 07/16, hopeful that chemotherapy could help pain control (2) Pancreatic cancer: * See above * advance to regular consistency diet, she is hungry today * CT with progression to 4.5cm pancreatic mass from 4cm on previous imaging last month spoke with Dr. 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 initially on coumadin. INR >10 last admission requiring reversal and was switched to Lovenox per discussion with Dr. 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 Stable on RA Anxiety/Depression * - continue buspar * -- continue klonopin but increase to TID * -- Ativan PRN ordered per palliative care DM II * --pre-DM * -- new last admission, likely from panc insuff 2nd to ca * --ISS while inpatient * --Holding metformin * Monitor BSGs GERD * Continue protonix 40mg daily DVT Proph * --Lovenox as above Admission and Anticipated Discharge Date Admission Date: July 13, 2020 Subjective patient with better pain control off of the HIGH CLIMBER pump, palliative using Methadone, Dilaudid PO, Fentanyl patch hoping to going home in the next 1-2 days updated her sister at the bedside spoke with oncology, they will see her on Wednesday Review of Systems Review of Systems: All systems reviewed & are unremarkable except as noted in Subjective Constitutional: no fever Respiratory: no cough, no dyspnea and no wheezing Cardiovascular: no chest pain and no edema Gastrointestinal: + abdominal pain, + nausea and + constipation; no vomiting and no diarrhea/loose stools Physical Exam Constitutional: well developed, + thin and + frail appearing; no acute distress and + uncomfortable Neck: trachea midline, no thyromegaly Respiratory: normal respiratory effort, lungs clear to auscultation Cardiovascular: RRR, no murmur, no edema Gastrointestinal (Abdomen): Inspection/Auscultation: abdomen normal to inspection and normal bowel sounds Percussion/Palpation: + abdomen tender (very tender in epigastric region), abdomen soft and normal to percussion; no guarding, abdomen not rigid and no ascites Musculoskeletal: Head/Neck/Chest: normocephalic, head atraumatic and neck supple Extremities: + abnormal strength and + muscle atrophy; no cyanosis, no clubbing and no petechiae Skin: no rashes, warm and dry Neurologic: patellar DTR's 2+ bilat, sensation intact and PERRL, EOMI, accommodation nl, no face palsy, no dysarthria Psychiatric: Orientation: alert and oriented x 3 Affect: + anxious affect Mood: + anxious mood Lymphatic: no cervical or axillary lymphadenopathy Results & Data Results & Data ([facility]) Vital Signs (Past 12 Hours) Vital Signs Temp Pulse Resp BP BP Pulse Ox 07/17/20 17:05 114/74 07/17/20 15:10 36.7 C 106 H 18 155/103 H 96 Laboratory Results Laboratory Results - last 24 hr 07/17/20 07/17/20 07/17/20 08:14 08:18 08:18 WBC 3.57 L RBC 4.20 Hgb 11.9 L Hct 35.4 L MCV 84.3 MCH 28.3 MCHC 33.6 RDW Std Deviation 43.7 RDW Coeff of Natali 14.4 Plt Count 135 MPV 10.5 H Sodium 139 Potassium 4.1 Chloride 110 H Carbon Dioxide 24 Anion Gap 5.0 BUN 3 L Creatinine 0.55 L Est Cr Clr Drug Dosing 118.5 Est GFR ( Amer) 119.0 Est GFR (Non-Af Amer) 102.7 BUN/Creatinine Ratio 6.0 L Glucose 121 H POC Glucose 136 H Calcium 8.7 Total Bilirubin 0.4 AST 19 ALT 36 Alkaline Phosphatase 81 Total Protein 6.1 L Albumin 3.5 Globulin 2.6 Albumin/Globulin Ratio 1.4 07/17/20 07/17/20 07/17/20 11:58 17:14 20:29 WBC RBC Hgb Hct MCV MCH MCHC RDW Std Deviation RDW Coeff of Natali Plt Count MPV Sodium Potassium Chloride Carbon Dioxide Anion Gap BUN Creatinine Est Cr Clr Drug Dosing Est GFR ( Amer) Est GFR (Non-Af Amer) BUN/Creatinine Ratio Glucose POC Glucose 119 H 136 H 127 H Calcium Total Bilirubin AST ALT Alkaline Phosphatase Total Protein Albumin Globulin Albumin/Globulin Ratio Medications Administered Current Inpatient Medications Acetaminophen (Acetaminophen 325 Mg Tab) 650 mg PO Q4H PRN PRN Reason: mild pain/fever Stop: 08/12/20 22:21 Last Admin: 07/14/20 21:02 Dose: 650 mg Documented by: Atorvastatin Calcium (Atorvastatin 40 Mg Tab) 40 mg PO DAILY [facility] Stop: 08/13/20 08:59 Last Admin: 07/17/20 08:53 Dose: 40 mg Documented by: Bisacodyl (Bisacodyl 10 Mg Supp) 10 mg OR DAILY PRN PRN Reason: Constipation Stop: 08/16/20 16:36 Buspirone HCl (Buspirone 15 Mg Tab) 30 mg PO HS [facility]ELA Stop: 08/12/20 22:21 Last Admin: 07/17/20 20:15 Dose: 30 mg Documented by: Chlorpromazine HCl (Chlorpromazine Hcl 10 Mg Tab) 10 mg PO HS [facility] Stop: 08/12/20 22:21 Last Admin: 07/17/20 20:14 Dose: 10 mg Documented by: Clonazepam (Clonazepam 0.25 Mg Tab) 0.25 mg PO TID PRN PRN Reason: Anxiety Stop: 08/12/20 20:59 Dextrose (Dextrose 50% 50 Ml Syringe) 25 - 50 ml IV UD PRN; Protocol PRN Reason: Hypoglycemia Protocol Stop: 08/13/20 12:14 Diphenhydramine HCl (Diphenhydramine Capsule 25 Mg Cap) 25 mg PO Q6H PRN PRN Reason: Allergy Symptoms Stop: 08/12/20 22:21 Docusate Sodium (Docusate Sodium 100 Mg Cap) 100 mg PO BID [facility] Stop: 08/12/20 22:21 Last Admin: 07/17/20 20:15 Dose: 100 mg Documented by: Enoxaparin Sodium (Enoxaparin 150 Mg/Ml Syr) 127.5 mg SQ DAILY [facility] Stop: 08/13/20 08:59 Last Admin: 07/17/20 08:53 Dose: 127.5 mg Documented by: Fentanyl (Fentanyl 25 Mcg/Hr Tdsy) 25 mcg TD Q3D@1000 [facility] Stop: 07/29/20 09:59 Last Admin: 07/15/20 10:25 Dose: 25 mcg Documented by: Fentanyl (Fentanyl 50 Mcg/Hr Tdsy) 50 mcg TD Q72H [facility] Stop: 08/01/20 09:59 Ferrous Sulfate (Ferrous Sulfate 325 Mg Tab) 325 mg PO QAM [facility] Stop: 08/14/20 08:59 Last Admin: 07/17/20 08:52 Dose: 325 mg Documented by: Gabapentin (Gabapentin 800 Mg Tab) 800 mg PO TID [facility] Stop: 08/12/20 22:21 Last Admin: 07/17/20 20:16 Dose: 800 mg Documented by: Glucagon (Glucagon For Inj 1 Mg Vial) 1 mg SQ UD PRN; Protocol PRN Reason: Hypoglycemia Protocol Stop: 08/13/20 12:14 Glucose (Glucose 10 Tabs/Tube) 4 - 8 tabs PO UD PRN; Protocol PRN Reason: Hypoglycemia Protocol Stop: 08/13/20 12:14 Glucose (Glucose 40% Gel 15 Gm Tube) 15 - 30 gm PO UD PRN; Protocol PRN Reason: Hypoglycemia Protocol Stop: 08/13/20 12:14 Heparin Sodium (Porcine) (Heparin 100 Unit/Ml 5ml Flush) 5 ml FLUSH PRN PRN PRN Reason: Flush Stop: 08/16/20 01:03 Hydromorphone HCl (Hydromorphone Hcl 2 Mg Tab) 2 mg PO Q4H PRN PRN Reason: Pain Stop: 07/31/20 10:41 Last Admin: 07/17/20 20:13 Dose: 2 mg Documented by: Hydromorphone HCl (Hydromorphone Inj 0.5 Mg/0.5 Ml Syr) 0.5 mg IV Q2H PRN PRN Reason: pain Stop: 07/31/20 14:07 Last Admin: 07/17/20 16:35 Dose: 0.5 mg Documented by: Insulin Aspart (Insulin Aspart 100 Units/Ml 3 Ml Pen) 0 units SC ACHS [facility] Stop: 08/13/20 12:29 Last Admin: 07/17/20 22:32 Dose: Not Given Documented by: Lidocaine (Lidocaine 5% 1 Patch) 1 patch TD QAM [facility] Stop: 08/16/20 08:59 Last Admin: 07/17/20 08:51 Dose: 1 patch Documented by: Lorazepam (Lorazepam 1 Mg Tab) 1 mg PO HS [facility]ELA Stop: 08/14/20 20:59 Last Admin: 07/17/20 20:13 Dose: 1 mg Documented by: Losartan Potassium (Losartan Potassium 25 Mg Tab) 25 mg PO HS [facility] Stop: 08/12/20 22:21 Last Admin: 07/17/20 20:15 Dose: 25 mg Documented by: Methadone HCl (Methadone Hcl 5 Mg Tab) 2.5 mg PO BID [facility] Stop: 07/31/20 10:44 Last Admin: 07/17/20 21:06 Dose: 2.5 mg Documented by: Methylnaltrexone Gates (Methylnaltrexone Gates 12 Mg/0.6 Ml Vial) 12 mg SQ Q2D PRN PRN Reason: Constipation Stop: 08/14/20 08:44 Mirtazapine (Mirtazapine Tab 15 Mg Tab) 15 mg PO HS [facility]ELA Stop: 08/13/20 20:59 Last Admin: 07/17/20 20:15 Dose: 15 mg Documented by: Miscellaneous (Check Fentanyl Patch Placement) 1 ea N/A QS [facility] Stop: 08/13/20 07:59 Last Admin: 07/17/20 15:47 Dose: 1 ea Documented by: Miscellaneous (Carbohydrates For Hypoglycemia ) 15 - 30 gm PO UD PRN PRN Reason: Hypoglycemia Protocol Stop: 08/13/20 12:14 Miscellaneous (Fentanyl Patch Remove & Waste) 1 ea N/A Q3D@0959 [facility] Stop: 08/17/20 09:58 Miscellaneous (Check Fentanyl Patch Placement) 1 ea N/A QS [facility] Stop: 08/14/20 15:59 Last Admin: 07/17/20 15:47 Dose: 1 ea Documented by: Miscellaneous (Lock-Out Terminal Operations Supervisor Titration ) 1 ea N/A ONCE PRN PRN Reason: HIGH CLIMBER Lock-Out Titration x 1 Stop: 07/29/20 08:33 Miscellaneous (Fentanyl Patch Remove & Waste) 1 ea N/A Q3D@0959 [facility] Stop: 08/12/20 22:28 Miscellaneous (Remove Lidoderm Patch) 1 ea N/A DAILY@2100 [facility] Stop: 08/16/20 20:59 Last Admin: 07/17/20 21:18 Dose: 1 ea Documented by: Multivitamins (Multivitamin Tab) 1 tab PO QDD [facility] Stop: 08/13/20 16:29 Last Admin: 07/17/20 15:49 Dose: 1 tab Documented by: Naloxone HCl (Naloxone Hcl 0.4 Mg/1 Ml Vial/Carp) 0.1 mg IV Q5M PRN; Protocol PRN Reason: Oversedation/Resp Depression Stop: 07/29/20 08:33 Ondansetron HCl (Ondansetron Inj 2 Mg/Ml 2 Ml Vial) 4 mg IV Q6H PRN PRN Reason: Nausea Stop: 08/12/20 22:21 Last Admin: 07/17/20 12:36 Dose: 4 mg Documented by: Oxybutynin Chloride (Oxybutynin Chloride Xl 5 Mg Tabcr) 10 mg PO HS [facility] Stop: 08/12/20 22:21 Last Admin: 07/17/20 20:13 Dose: 10 mg Documented by: Pantoprazole Sodium (Pantoprazole 40 Mg Tab) 40 mg PO QAM [facility] Stop: 08/13/20 08:59 Last Admin: 07/17/20 08:52 Dose: 40 mg Documented by: Polyethylene Glycol (Polyethylene (Miralax) 17 Gm Pack) 17 gm PO BID [facility] Stop: 08/12/20 22:21 Last Admin: 07/17/20 20:16 Dose: 17 gm Documented by: Potassium Chloride (Potassium Chloride 10 Meq Tabcr) 10 meq PO BID [facility] Stop: 08/13/20 20:59 Last Admin: 07/17/20 20:14 Dose: 10 meq Documented by: Rizatriptan Benzoate (Rizatriptan Benzoate 10 Mg Tab) 10 mg PO DAILY PRN PRN Reason: Migraine Headache Stop: 08/12/20 22:21 Sennosides (Senna 8.6 Mg Tab) 17.2 mg PO QAM [facility] Stop: 08/13/20 08:59 Last Admin: 07/17/20 08:52 Dose: 17.2 mg Documented by: Sumatriptan Succinate (Sumatriptan Succinate 6 Mg/0.5 Ml Vial) 6 mg SQ DAILY PRN PRN Reason: Migraine Headache Stop: 08/12/20 22:21 Tizanidine HCl (Tizanidine Hcl 4 Mg Tablet) 4 mg PO QID PRN PRN Reason: muscle spasticity Stop: 08/12/20 22:21 Last Admin: 07/17/20 20:14 Dose: 4 mg Documented by: Topiramate (Topiramate 100 Mg Tab) 100 mg PO DAILY [facility]; Protocol Stop: 08/14/20 08:59 Last Admin: 07/17/20 08:52 Dose: 100 mg Documented by: Venlafaxine HCl (Venlafaxine Hcl Xr 37.5 Mg Capxr) [facility] Stop: 08/13/20 08:59 Last Admin: 07/17/20 08:52 Dose: 37.5 mg Documented by: Venlafaxine HCl (Venlafaxine Hcl Xr 75 Mg Capxr) 75 mg PO [facility] Stop: 08/13/20 08:59 Last Admin: 07/17/20 08:53 Dose: 75 mg Documented by: PG Care Time/CCT Total # of Minutes Spent Total Time Spent with Patient: Total time spent is greater than 50% in coordination of care (as documented) at patient's floor/unit and/or counseling patient: Coding Level of Care Code 53946 Subseq Hosp Care Lvl 2 Diagnoses Cancer associated pain G89.3 Pancreatic cancer C25.9 Pancreatic malignancy location: unspecified Superior mesenteric vein thrombosis K55.069 Hypokalemia E87.6 (1) Pancreatic cancer Pancreatic malignancy location: unspecified Qualified Code(s): C25.9 - Malignant neoplasm of pancreas, unspecified
[2020-07-18] MEDS: CHECK fentaNYL PATCH PLACEMENT SCH ×6 (00:06→16:12)
[2020-07-18] MEDS: HYDROmorphone HCL 2 MG TAB PO PRN ×5 (04:23→21:28)
[2020-07-18] MEDS: ENOXAPARIN 150 MG/ML SYR SQ SCH (08:57)
[2020-07-18] MEDS: LIDOCAINE 5% 1 PATCH TD SCH (08:57)
[2020-07-18] MEDS: GABAPENTIN 800 MG TAB PO SCH ×3 (08:58→21:29)
[2020-07-18] MEDS: FERROUS SULFATE 325 MG TAB PO SCH (08:59)
[2020-07-18] MEDS: ATORVASTATIN 40 MG TAB PO SCH (08:59)
[2020-07-18] MEDS: PANTOprazole 40 MG TAB PO SCH (08:59)
[2020-07-18] MEDS: DOCUSATE SODIUM 100 MG CAP PO SCH ×2 (08:59→21:29)
[2020-07-18] MEDS: TOPIRAMATE 100 MG TAB PO SCH (09:00)
[2020-07-18] MEDS: POTASSIUM CHLORIDE 10 MEQ TABCR PO SCH ×2 (09:00→21:30)
[2020-07-18] MEDS: VENLAFAXINE HCL XR 37.5 MG CAPXR PO SCH (09:00)
[2020-07-18] MEDS: VENLAFAXINE HCL XR 75 MG CAPXR PO SCH (09:00)
[2020-07-18] MEDS: POLYETHYLENE (MIRALAX) 17 GM PACK PO SCH ×2 (09:01→21:31)
[2020-07-18] MEDS: SENNA 8.6 MG TAB PO SCH (09:01)
[2020-07-18] MEDS: METHADONE HCL 5 MG TAB PO SCH ×2 (09:09→21:27)
[2020-07-18] MEDS: fentaNYL 25 MCG/HR TDSY TD SCH (09:10)
[2020-07-18] MEDS: INSULIN ASPART 100 UNITS/ML 3 ML PEN SC SCH ×4 (09:36→22:15)
[2020-07-18] MEDS ORDERED: fentaNYL 50 MCG/HR TDSY TD SCH (10:00)
--- NOTE | 2020-07-18 11:03 | Palliative Care Progress Note ---
Date of Service July 18, 2020 Assessment & Plan (1) Intractable abdominal pain: Some improvement. Will increase hydromorphone to 3mg po every four hours as needed. Continue fentanyl. Continue methadone and monitor for sedation. She is also on adjuvant gabapentin. (2) Anxiety: Managed with clonazepam (3) Constipation: Improved with relistor. Continue routine miralax. She has h/o chronic constipation and reports that a BM every ten days is normal for her. (4) Palliative care encounter: She will be meeting with Dr. Lara tomorrow to discuss her cancer treatment plan and what to expect. She is scheduled for her first treatment on 07/22. She also has f/u appointment with outpatient palliative care on 07/25 to assess pain management and f/u after her discussion with Dr. Lara and first treatment. (5) Pancreatic cancer: Admission and Anticipated Discharge Date Admission Date: July 13, 2020 Subjective Reports that abdominal pain is down to 6/10 with po hydromorphone. She is using it pretty much every four hours and notes that it helps but doesn't last. She did have multiple BMs yesterday. Her affect is somewhat flat today. She tells me that she's feeling ok but has a lot on her mind. She is very animated and laughing when talking about winning the pushd game with her sister. Review of Systems Review of Systems: [place] Symptom Assessment Scale Pain 2/3 Dyspnea 0/3 Nausea 0/3 Anorexia 2/3 Anxiety 0/3 Palliative Performance Score 50% Physical Exam Constitutional: no acute distress and not lethargic ENMT: Mouth: + dry oral mucous membranes Respiratory: normal respiratory effort; no labored breathing Gastrointestinal (Abdomen): Inspection/Auscultation: abdomen not distended Percussion/Palpation: abdomen soft epigastric tenderness Musculoskeletal: Extremities: extremities normal to inspection Neurologic: no focal motor deficits and not confused Psychiatric: Orientation: alert and oriented x 3 Results & Data ([facility]) Vital Signs (Past 12 Hours) Vital Signs Temp Pulse Resp BP BP Pulse Ox 07/18/20 08:40 97.9 F 87 18 117/78 98 07/17/20 23:19 98.2 F 87 16 119/81 98 PG Care Time/CCT Total # of Minutes Spent Total Time Spent with Patient: Total time spent is greater than 50% in coordination of care (as documented) at patient's floor/unit and/or counseling patient: Coding Level of Care Code 08453 Subseq Hosp Care Lvl 2 Diagnoses Intractable abdominal pain R10.9 Anxiety F41.9 Constipation K59.00 Palliative care encounter Z51.5 Pancreatic cancer C25.9 Pancreatic malignancy location: unspecified (1) Pancreatic cancer Pancreatic malignancy location: unspecified Qualified Code(s): C25.9 - Malignant neoplasm of pancreas, unspecified
[2020-07-18] MEDS: ONDANSETRON INJ 2 MG/ML 2 ML VIAL IV PRN ×2 (14:05→20:41)
[2020-07-18] MEDS ORDERED: METOCLOPRAMIDE HCL INJ 5 MG/ML 2 ML VIAL IV STA (16:00)
[2020-07-18] MEDS: MULTIVITAMIN TAB PO SCH (16:13)
[2020-07-18] MEDS: LOSARTAN POTASSIUM 25 MG TAB PO SCH (21:28)
[2020-07-18] MEDS: chlorproMAZINE HCL 10 MG TAB PO SCH (21:29)
[2020-07-18] MEDS: MIRTAZAPINE TAB 15 MG TAB PO SCH (21:29)
[2020-07-18] MEDS: OXYBUTYNIN CHLORIDE XL 5 MG TABCR PO SCH (21:29)
[2020-07-18] MEDS: busPIRone 15 MG TAB PO SCH (21:31)
[2020-07-18] MEDS: LORazepam 1 MG TAB PO SCH (21:33)
--- NOTE | 2020-07-18 23:38 | Hospitalist Progress Note ---
Date of Service July 18, 2020 Assessment & Plan (1) Cancer associated pain: * Pancreatic cancer associated pain/status post celiac plexus block on July 11 continue Fentanyl at 75mcg methadone 2.5mg BID, Dilaudid 3mg PO q4 PRN pain * Continue gabapentin 800mg TID * Lidoderm patch added for low back pain short term goal is to get pain under control, get to oncology visit on Wednesday07/19/20 d/w Dr. Lara on 07/16, hopeful that chemotherapy could help pain control (2) Pancreatic cancer: * See above * advance to regular consistency diet, she is hungry today * CT with progression to 4.5cm pancreatic mass from 4cm on previous imaging last month spoke with Dr. 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 initially on coumadin. INR >10 last admission requiring reversal and was switched to Lovenox per discussion with Dr. Haq during last admission * Continue enoxaparin 127.5 mg subcu daily * the thrombosis is most likely territory sales representative of local invasion of tumor, as there is no clot in other portions of vein (4) Hypokalemia: * Potassium 3.0 upon admission * up to 4.1 yesterday * repeat labs tomorrow HTN/HLD * -- Continue losartan, atorvastatin daily * BP elevated in setting of pain -- monitor as pain controlled Pulmonary Abn * -- Noted last admission, pulm consulted and felt infectious on CT compared to imaging on admission and rec for Zpack x 5 days * finish course while here * No sob/cp reported or cough. Stable on RA Anxiety/Depression * - continue buspar * -- continue klonopin but increase to TID * -- Ativan PRN ordered per palliative care DM II * --pre-DM * -- new last admission, likely from panc insuff 2nd to ca * --ISS while inpatient * --Holding metformin * Monitor BSGs GERD * Continue protonix 40mg daily DVT Proph * --Lovenox as above (5) Constipation: on Miralax BID already with Colace gave a dose Lactulose with good success (6) Anxiety: better on Klonopin, Ativan PRN (7) Intractable vomiting: better after Reglan Admission and Anticipated Discharge Date Admission Date: July 13, 2020 Subjective patient says her pain is a little better, palliative increased her Dilaudid to 3mg PO q4 continues with the Fentanyl patch and methadone she was able to have a BM after Lactulose dose later in the day she had some nausea, was hesitant to go home nausea relieved with Reglan 10mg IV plan to get her home tomorrow morning Review of Systems Review of Systems: All systems reviewed & are unremarkable except as noted in Subjective Constitutional: + fatigue and + weakness; no fever, no chills and no sweats Respiratory: no cough and no dyspnea Cardiovascular: no chest pain and no edema Gastrointestinal: + abdominal pain, + nausea and + vomiting; no constipation and no diarrhea/loose stools Physical Exam Constitutional: well developed, + thin and + frail appearing; no acute distress and + uncomfortable Neck: trachea midline, no thyromegaly Respiratory: normal respiratory effort, lungs clear to auscultation Cardiovascular: RRR, no murmur, no edema Gastrointestinal (Abdomen): Inspection/Auscultation: abdomen normal to inspection and normal bowel sounds Percussion/Palpation: + abdomen tender (very tender in epigastric region), abdomen soft and normal to percussion; no guarding, abdomen not rigid and no ascites Musculoskeletal: Head/Neck/Chest: normocephalic, head atraumatic and neck supple Extremities: + abnormal strength and + muscle atrophy; no cyanosis, no clubbing and no petechiae Skin: no rashes, warm and dry Neurologic: patellar DTR's 2+ bilat, sensation intact and PERRL, EOMI, accommodation nl, no face palsy, no dysarthria Psychiatric: Orientation: alert and oriented x 3 Affect: + anxious affect Mood: + anxious mood Lymphatic: no cervical or axillary lymphadenopathy Results & Data Results & Data ([facility]) Vital Signs (Past 12 Hours) Vital Signs Temp Pulse Resp BP Pulse Ox 04/01/21 22:55 36.8 C 81 18 121/76 94 07/18/20 16:20 36.7 C 82 18 115/81 97 Laboratory Results Laboratory Results - last 24 hr 07/18/20 07/18/20 07/18/20 08:38 12:26 17:24 POC Glucose 126 H 156 H 96 07/18/20 20:38 POC Glucose 148 H Medications Administered Current Inpatient Medications Acetaminophen (Acetaminophen 325 Mg Tab) 650 mg PO Q4H PRN PRN Reason: mild pain/fever Stop: 08/12/20 22:21 Last Admin: 07/14/20 21:02 Dose: 650 mg Documented by: Atorvastatin Calcium (Atorvastatin 40 Mg Tab) 40 mg PO DAILY [facility] Stop: 08/13/20 08:59 Last Admin: 07/18/20 08:59 Dose: 40 mg Documented by: Bisacodyl (Bisacodyl 10 Mg Supp) 10 mg [place] DAILY PRN PRN Reason: Constipation Stop: 08/16/20 16:36 Buspirone HCl (Buspirone 15 Mg Tab) 30 mg PO HS [facility] Stop: 08/12/20 22:21 Last Admin: 07/18/20 21:31 Dose: 30 mg Documented by: Chlorpromazine HCl (Chlorpromazine Hcl 10 Mg Tab) 10 mg PO HS [facility] Stop: 08/12/20 22:21 Last Admin: 07/18/20 21:29 Dose: 10 mg Documented by: Clonazepam (Clonazepam 0.25 Mg Tab) 0.25 mg PO TID PRN PRN Reason: Anxiety Stop: 08/12/20 20:59 Dextrose (Dextrose 50% 50 Ml Syringe) 25 - 50 ml IV UD PRN; Protocol PRN Reason: Hypoglycemia Protocol Stop: 08/13/20 12:14 Diphenhydramine HCl (Diphenhydramine Capsule 25 Mg Cap) 25 mg PO Q6H PRN PRN Reason: Allergy Symptoms Stop: 08/12/20 22:21 Docusate Sodium (Docusate Sodium 100 Mg Cap) 100 mg PO BID NEELA Stop: 08/12/20 22:21 Last Admin: 07/18/20 21:29 Dose: 100 mg Documented by: Enoxaparin Sodium (Enoxaparin 150 Mg/Ml Syr) 127.5 mg SQ DAILY NEELA Stop: 08/13/20 08:59 Last Admin: 07/18/20 08:57 Dose: 127.5 mg Documented by: Fentanyl (Fentanyl 25 Mcg/Hr Tdsy) 25 mcg TD Q3D@1000 [facility] Stop: 07/29/20 09:59 Last Admin: 07/18/20 09:10 Dose: 25 mcg Documented by: Fentanyl (Fentanyl 50 Mcg/Hr Tdsy) 50 mcg TD Q72H NEELA Stop: 08/01/20 09:59 Last Admin: 07/18/20 09:09 Dose: 50 mcg Documented by: Ferrous Sulfate (Ferrous Sulfate 325 Mg Tab) 325 mg PO QAM NEELA Stop: 08/14/20 08:59 Last Admin: 07/18/20 08:59 Dose: 325 mg Documented by: Gabapentin (Gabapentin 800 Mg Tab) 800 mg PO TID [facility] Stop: 08/12/20 22:21 Last Admin: 07/18/20 21:29 Dose: 800 mg Documented by: Glucagon (Glucagon For Inj 1 Mg Vial) 1 mg SQ UD PRN; Protocol PRN Reason: Hypoglycemia Protocol Stop: 08/13/20 12:14 Glucose (Glucose 10 Tabs/Tube) 4 - 8 tabs PO UD PRN; Protocol PRN Reason: Hypoglycemia Protocol Stop: 08/13/20 12:14 Glucose (Glucose 40% Gel 15 Gm Tube) 15 - 30 gm PO UD PRN; Protocol PRN Reason: Hypoglycemia Protocol Stop: 08/13/20 12:14 Heparin Sodium (Porcine) (Heparin 100 Unit/Ml 5ml Flush) 5 ml FLUSH PRN PRN PRN Reason: Flush Stop: 08/16/20 01:03 Hydromorphone HCl (Hydromorphone Inj 0.5 Mg/0.5 Ml Syr) 0.5 mg IV Q2H PRN PRN Reason: pain Stop: 07/31/20 14:07 Last Admin: 07/17/20 16:35 Dose: 0.5 mg Documented by: Hydromorphone HCl (Hydromorphone Hcl 2 Mg Tab) 3 mg PO Q4H PRN PRN Reason: Pain Stop: 07/31/20 10:41 Last Admin: 07/18/20 21:28 Dose: 3 mg Documented by: Insulin Aspart (Insulin Aspart 100 Units/Ml 3 Ml Pen) 0 units SC ACHS [facility] Stop: 08/13/20 12:29 Last Admin: 07/18/20 22:15 Dose: Not Given Documented by: Lidocaine (Lidocaine 5% 1 Patch) 1 patch TD QAM [facility] Stop: 08/16/20 08:59 Last Admin: 07/18/20 08:57 Dose: Not Given Documented by: Lorazepam (Lorazepam 1 Mg Tab) [address] [facility] Stop: 08/14/20 20:59 Last Admin: 07/18/20 21:33 Dose: 1 mg Documented by: Losartan Potassium (Losartan Potassium 25 Mg Tab) [address] [facility] Stop: 08/12/20 22:21 Last Admin: 07/18/20 21:28 Dose: 25 mg Documented by: Methadone HCl (Methadone Hcl 5 Mg Tab) 2.5 mg PO BID [facility] Stop: 07/31/20 10:44 Last Admin: 07/18/20 21:27 Dose: 2.5 mg Documented by: Methylnaltrexone [place] (Methylnaltrexone [place] 12 Mg/0.6 Ml Vial) 12 mg SQ Q2D PRN PRN Reason: Constipation Stop: 08/14/20 08:44 Mirtazapine (Mirtazapine Tab 15 Mg Tab) [address] [facility] Stop: 08/13/20 20:59 Last Admin: 07/18/20 21:29 Dose: 15 mg Documented by: Miscellaneous (Check Fentanyl Patch Placement) 1 ea N/A QS [facility] Stop: 08/13/20 07:59 Last Admin: 07/18/20 16:12 Dose: 1 ea Documented by: Miscellaneous (Carbohydrates For Hypoglycemia ) 15 - 30 gm PO UD PRN PRN Reason: Hypoglycemia Protocol Stop: 08/13/20 12:14 Miscellaneous (Fentanyl Patch Remove & Waste) 1 ea N/A Q3D@0959 [facility] Stop: 08/17/20 09:58 Last Admin: 07/18/20 09:11 Dose: 1 ea Documented by: Miscellaneous (Check Fentanyl Patch Placement) 1 ea N/A QS [facility] Stop: 08/14/20 15:59 Last Admin: 07/18/20 16:12 Dose: 1 ea Documented by: Miscellaneous (Lock-Out Structural Metal Worker 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 ) 1 ea N/A ONCE PRN 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1 mg IV Q5M PRN; Protocol PRN Reason: Oversedation/Resp Depression Stop: 07/29/20 08:33 Ondansetron HCl (Ondansetron Inj 2 Mg/Ml 2 Ml Vial) 4 mg IV Q6H PRN PRN Reason: Nausea Stop: 08/12/20 22:21 Last Admin: 07/18/20 20:41 Dose: 4 mg Documented by: Oxybutynin Chloride (Oxybutynin Chloride Xl 5 Mg Tabcr) 10 mg PO HS [facility] Stop: 08/12/20 22:21 Last Admin: 07/18/20 21:29 Dose: 10 mg Documented by: Pantoprazole Sodium (Pantoprazole 40 Mg Tab) 40 mg PO QAM [facility] Stop: 08/13/20 08:59 Last Admin: 07/18/20 08:59 Dose: 40 mg Documented by: Polyethylene Glycol (Polyethylene (Miralax) 17 Gm Pack) 17 gm PO BID [facility] Stop: 08/12/20 22:21 Last Admin: 07/18/20 21:31 Dose: 17 gm Documented by: Potassium Chloride (Potassium Chloride 10 Meq Tabcr) 10 meq PO BID [facility] Stop: 08/13/20 20:59 Last Admin: 07/18/20 21:30 Dose: 10 meq Documented by: Rizatriptan Benzoate (Rizatriptan Benzoate 10 Mg Tab) 10 mg PO DAILY PRN PRN Reason: Migraine Headache Stop: 08/12/20 22:21 Sennosides (Senna 8.6 Mg Tab) 17.2 mg PO QAM [facility] Stop: 08/13/20 08:59 Last Admin: 07/18/20 09:01 Dose: 17.2 mg Documented by: Sumatriptan Succinate (Sumatriptan Succinate 6 Mg/0.5 Ml Vial) 6 mg SQ DAILY PRN PRN Reason: Migraine Headache Stop: 08/12/20 22:21 Tizanidine HCl (Tizanidine Hcl 4 Mg Tablet) 4 mg PO QID PRN PRN Reason: muscle spasticity Stop: 08/12/20 22:21 Last Admin: 07/17/20 20:14 Dose: 4 mg Documented by: Topiramate (Topiramate 100 Mg Tab) 100 mg PO DAILY [facility]; Protocol Stop: 08/14/20 08:59 Last Admin: 07/18/20 09:00 Dose: 100 mg Documented by: Venlafaxine HCl (Venlafaxine Hcl Xr 37.5 Mg Capxr) 37.5 mg PO QAM [facility] Stop: 08/13/20 08:59 Last Admin: 07/18/20 09:00 Dose: 37.5 mg Documented by: Venlafaxine HCl (Venlafaxine Hcl Xr 75 Mg Capxr) 75 mg PO QAM [facility] Stop: 08/13/20 08:59 Last Admin: 07/18/20 09:00 Dose: 75 mg Documented by: PG Care Time/CCT Total # of Minutes Spent Total Time Spent with Patient: Total time spent is greater than 50% in coordination of care (as documented) at patient's floor/unit and/or counseling patient: Coding Level of Care Code 73850 Subseq Hosp Care Lvl 2 Diagnoses Cancer associated pain G89.3 Pancreatic cancer C25.9 Pancreatic malignancy location: unspecified Superior mesenteric vein thrombosis K55.069 Hypokalemia E87.6 Constipation K59.00 Anxiety F41.9 Intractable vomiting R11.10 (1) Pancreatic cancer Pancreatic malignancy location: unspecified Qualified Code(s): C25.9 - Malignant neoplasm of pancreas, unspecified
[2020-07-19] MEDS: CHECK fentaNYL PATCH PLACEMENT SCH ×4 (00:05→10:02)
[2020-07-19] MEDS: INSULIN ASPART 100 UNITS/ML 3 ML PEN SC SCH (09:44)
[2020-07-19] MEDS: METHADONE HCL 5 MG TAB PO SCH (09:49)
[2020-07-19] MEDS: VENLAFAXINE HCL XR 37.5 MG CAPXR PO SCH (09:50)
[2020-07-19] MEDS: ATORVASTATIN 40 MG TAB PO SCH (09:50)
[2020-07-19] MEDS: TOPIRAMATE 100 MG TAB PO SCH (09:50)
[2020-07-19] MEDS: POTASSIUM CHLORIDE 10 MEQ TABCR PO SCH (09:50)
[2020-07-19] MEDS: DOCUSATE SODIUM 100 MG CAP PO SCH (09:50)
[2020-07-19] MEDS: GABAPENTIN 800 MG TAB PO SCH (09:50)
[2020-07-19] MEDS: VENLAFAXINE HCL XR 75 MG CAPXR PO SCH (09:51)
[2020-07-19] MEDS: PANTOprazole 40 MG TAB PO SCH (09:51)
[2020-07-19] MEDS: tiZANidine HCL 4 MG TABLET PO PRN (09:51)
[2020-07-19] MEDS: SENNA 8.6 MG TAB PO SCH (09:51)
[2020-07-19] MEDS: POLYETHYLENE (MIRALAX) 17 GM PACK PO SCH (09:51)
[2020-07-19] MEDS: FERROUS SULFATE 325 MG TAB PO SCH (09:51)
[2020-07-19] MEDS: ENOXAPARIN 150 MG/ML SYR SQ SCH (09:51)
[2020-07-19] MEDS: LIDOCAINE 5% 1 PATCH TD SCH (09:52)
--- NOTE | 2020-07-19 10:50 | Discharge Summary ---
Date of Service July 19, 2020 Admission HPI Per Admitting Provider The patient is a 60-year-old female with a past medical history including multiple pulmonary nodules, anorexia, pancreatic cancer, supratherapeutic INR, upper GI bleed, pancreatic mass, cancer associated pain, acute pancreatitis, superior mesenteric vein thrombosis, pancreatic duct stricture, superior mesenteric artery thrombosis, liver nodule, chronic migraine, restless leg syndrome, bladder hyperactivity, dismetabolic syndrome X, depression with anxiety, diabetes, hypertension and hyperlipidemia. She has missed most recently admitted to [facility] from 07/08-07/12 with diagnosis of the pancreatic cancer, associate with severe abdominal pain, and received a celiac plexus block on 07/11. She was discharged on fentanyl patch 25 mcg change every 3 days and oxycodone 5 mg every 4 hours as needed breakthrough pain, and had to return to the ED due to uncontrolled pain, nausea and vomiting. Principal Diagnosis Pancreatic cancer with intractable pain Discharge Exam Constitutional well developed, + thin and + frail appearing; no acute distress and + uncomfortable Neck trachea midline, no thyromegaly Respiratory normal respiratory effort, lungs clear to auscultation Cardiovascular RRR, no murmur, no edema Gastrointestinal (Abdomen) Inspection/Auscultation: abdomen normal to inspection and normal bowel sounds Percussion/Palpation: + abdomen tender (mildly tender, better), abdomen soft and normal to percussion; no guarding, abdomen not rigid and no ascites Musculoskeletal Head/Neck/Chest: normocephalic, head atraumatic and neck supple Extremities: + abnormal strength and + muscle atrophy; no cyanosis, no clubbing and no petechiae Skin no rashes, warm and dry Neurologic patellar DTR's 2+ bilat, sensation intact and PERRL, EOMI, accommodation nl, no face palsy, no dysarthria Psychiatric Orientation: alert and oriented x 3 Lymphatic no cervical or axillary lymphadenopathy Discharge Data Allergies Allergy/AdvReac Type Severity Reaction Status Date / Time latex Allergy Intermediate rash Verified 07/13/20 18:29 sulfamethoxazole Allergy Intermediate itching, Verified 07/13/20 18:29 chest tightness trimethoprim Allergy Intermediate itching, Verified 07/13/20 18:29 chest tightness adhesive Allergy Unknown ITCHY SKIN Verified 07/13/20 18:29 clindamycin AdvReac Severe Diarrhea Verified 07/13/20 18:29 doxycycline AdvReac Intermediate nausea and Verified 07/13/20 18:29 vomiting Consultations 07/13/20 20:06 ED Decision to Admit Stat 07/14/20 12:03 Consult Pain Management Routine 07/14/20 12:22 Consult Palliative Care Routine Ordered Studies 07/13/20 17:23 CT head/brain wo con Stat 07/13/20 17:28 CT abd pelvis IV con only Stat Hospital Course (1) Cancer associated pain: * Pancreatic cancer associated pain/status post celiac plexus block on July 11 continue Fentanyl at 75mcg methadone 2.5mg BID, Dilaudid 3mg PO q4 PRN pain pain well controlled today * Continue gabapentin 800mg TID * Lidoderm patch added for low back pain short term goal is to get pain under control, get to oncology visit on Wednesday07/19/20 d/w Dr. Lara on 07/16, hopeful that chemotherapy could help pain control (2) Pancreatic cancer: * See above * eating better the past three days * CT with progression to 4.5cm pancreatic mass from 4cm on previous imaging on 07/[address] Lara on 07/16, he will see patient with Castro TORIBIO on Wednesday 07/19 in the office will discuss options for chemotherapy, he hopes that chemo could help alleviate some pain he agrees that we are focusing on relieving her symptoms in whatever way we can we discussed that her liver function, renal function are stable, vitals stable so chemotherapy is not contra-indicated, can give it a try patient and her sister Soha in agreement with seeing oncology on 07/19 and tentatively trying chemo on 07/22 Recent history: patient presented with acute pancreatitis in March 2020, treated and symptoms improved she followed up with GI for endoscopic US that showed evidence of chronic pancreatitis, densities in the uncinate process, dilated CBD at 8mm her bili and other LFT were normal biopsies done on 05/16/20 via endoscopic US with [facility] Pancreas," uncinate process lesion abdomen" (fine needle aspiration): - Sheets of benign pancreatic ductal epithelial cells are seen. - No tumor seen. - A significant inflammatory infiltrate is not seen. Lymph node, periportal (fine needle aspiration): #1. Many small round lymphocytes enmeshed in fibrin are seen. #2. Metastatic carcinoma and diffuse large Bcell lymphoma or both not seen. #3. I cannot entirely exclude a lowgrade lymphoma in this case. #4. I favor reactive lymphoid hyperplasia. continued to have pain, symptoms of pancreatitis, presented again with CT on 07/08 with findings of pancreatic head mass MRI abdomen report: Redemonstration of the 4.3 x 3 x 1 cm necrotic pancreatic head mass. she had a celiac plexus nerve block for pain, returned in two days, CT shows 4.5cm mass with the mass encroaching superior mesenteric vein patient has lost significant weight in the past year, in July 2019 she was 215lbs and now she is 178lbs (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 initially on coumadin. INR >10 last admission requiring reversal and was switched to Lovenox per discussion with Dr. Haq during last admission * Continue enoxaparin 127.5 mg subcu daily * the thrombosis is most likely patient representative of local invasion of tumor, as there is no clot in other portions of vein (4) Hypokalemia: * Potassium 3.0 upon admission * up to 4.1 when last checked HTN/HLD * -- Continue losartan, atorvastatin daily * BP elevated in setting of pain -- monitor as pain controlled Pulmonary Abn * -- Noted last admission, pulm consulted and felt infectious on CT compared to imaging on admission and rec for Zpack x 5 days * finish course while here * No sob/cp reported or cough. Stable on RA Anxiety/Depression * - continue buspar * -- continue klonopin but increase to TID * -- Ativan PRN ordered per palliative care DM II * --pre-DM * -- new last admission, likely from panc insuff 2nd to ca * --ISS while inpatient * --Holding metformin but resume on discharge * Monitor BSGs GERD * Continue protonix 40mg daily DVT Proph * --Lovenox as above (5) Constipation: on Miralax BID already with Colace gave a dose Lactulose with good success (6) Anxiety: better on Klonopin, Ativan PRN (7) Intractable vomiting: better after Reglan, will give a prescription to try this at home Total Time Total Time Spent Total Time Spent (In Minutes): 33 minutes Total Time Includes: Examination of the Patient, Discharge Planning and Medication Reconciliation Discharge Plan Discharge Items Patient Disposition: Home - Self-Care Reason For Visit: INTRACTABLE PANCREATIC CANCER PAIN Discharge Diagnosis: Pancreatic cancer Intractable pain Condition on Discharge: Fair Goals: follow up with oncology today follow up with palliative care on 07/25 pain control eat as much as you can to build up strength Activity: Resume your previous activity Driving/Machine Use: no driving Weightbearing: Full weightbearing Non-emergency contact: Primary Care Provider and Oncologist Call non-emergency contact if: you have any medication questions, your symptoms worsen, your pain is not controlled and your pain is worsening Follow-up/Referrals: Guera Rios CATARINO Goncalves [Other] (WednesdayJuly 22 1030 Labs [address] then Treatment) Brent Dye III, CRNP [Primary Care Provider] - 07/29/20 8:40 am Angelina Humphrey MD [Physician] - 07/25/20 2:00 pm (appointment made for 07/25) Sacha Lara MD [Surgeon] - 08/02/20 1:20 pm (You have been scheduled August 02, 2020 at 1:20pm for lab work/chemothereapy Questions call [phone]) Diet: Regular Addtl Attending Provider Instructions: Medications: - FENTANYL PATCH: dose increased to 75mcg daily, new script for 50mcg patch to a dd to the 25mcg patch, change every 3 days - METHADONE: 2.5mg twice a day scheduled - HYDROMORPHONE: oral Dilaudid, take 3mg every 4 hours as needed for pain - CLONAZEPAM: 0.25mg three times a day as needed for pain - LORAZEPAM: take as needed to help with anxiety at night, help you sleep - MIRTAZAPINE: 15mg at night, antidepressant that can help with appetite - REGLAN: take as needed for intractable nausea Intractable pain, pancreatic cancer numerous medications now on board, be cautious that you are not overly sedated do not take more than prescribed follow up tomorrow with Dr. Lara with [facility] oncology, plan for chemotherapy on 07/22 hopeful that chemotherapy can help reduce pain as well will follow up with Dr. Humphrey, palliative care, on 07/25 for assessment of pain you can contact her office if you have issues with pain control prior to that visit Constipation: take colace and Miralax twice a day every day stay well hydrated, drink several glasses of water a day try Dulcolax suppository as needed if no bowel movement in 2-3 days Pending Studies at Discharge: No Stand-Alone Forms: My [facility], Smoking Cessation Medications and DC Order Prescriptions: New clonazepam 0.5 mg Tablet 0.25 mg PO TID PRN (Reason: anxiety) 30 Days Qty: 90 RF: 0 fentanyl 50 mcg/hr Patch 72 Hour 50 mcg transdermal Q72H 30 Days Qty: 10 RF: 0 mirtazapine 15 mg Tablet 15 mg PO HS 30 Days Qty: 30 RF: 1 lorazepam 1 mg Tablet 1 mg PO HS 30 Days Qty: 30 RF: 0 metoclopramide HCl [Reglan] 10 mg tablet 10 mg PO Q12 PRN (Reason: nausea and vomiting) 14 Days Qty: 28 RF: 0 hydromorphone [Dilaudid] 2 mg tablet 3 mg PO Q4H PRN (Reason: pain) 14 Days Qty: 120 RF: 0 methadone 5 mg tablet 2.5 mg PO Q12H 14 Days Qty: 14 RF: 0 Continued atorvastatin 40 mg tablet 40 mg PO DAILY Qty: 30 RF: 5 sumatriptan succinate 6 mg/0.5 mL pen injector 6 mg subcut .COMPLEX PRN (Reason: Migraine Headache) Qty: 1 RF: 0 tizanidine 4 mg tablet 4 mg PO QID PRN (Reason: muscle spasticity) Qty: 90 RF: 5 rizatriptan 10 mg tablet 10 mg PO .COMPLEX PRN (Reason: Migraine Headache) 90 Days Qty: 27 RF: 1 multivitamin [Daily Multi-Vitamin] tablet 1 tab PO QDD RF: 0 promethazine 25 mg tablet 25 mg PO BID PRN (Reason: migraine, nausea) Qty: 60 RF: 1 gabapentin 800 mg tablet 800 mg PO TID Qty: 90 RF: 5 topiramate 100 mg capsule,sprinkle,ER 24hr 100 mg PO DAILY 90 Days Qty: 90 RF: 1 Narcan 4 mg/actuation spray,non-aerosol 4 mg intranasal Q2M PRN (Reason: opioid overdose) Qty: 2 RF: 0 Emgality Pen 120 mg/mL pen injector 120 mg SQ MONTHLY 30 Days Qty: 1 RF: 5 venlafaxine 75 mg capsule,extended release 24hr 37.5 mg PO QAM RF: 0 docusate sodium 100 mg Capsule 100 mg PO BID Qty: 20 RF: 0 pantoprazole 40 mg Tablet,Delayed Release (Dr/Ec) 40 mg PO QAM 30 Days Qty: 30 RF: 3 acetaminophen [Tylenol Extra Strength] 500 mg Tablet 1,000 mg PO DIRECTED PRN (Reason: Pain) RF: 0 diphenhydramine HCl [Benadryl] 25 mg Capsule 25 mg PO Q6H PRN (Reason: Allergy Symptoms) RF: 0 buspirone 30 mg tablet 30 mg PO HS RF: 0 chlorpromazine 10 mg tablet 10 mg PO HS RF: 0 venlafaxine 75 mg capsule,extended release 24hr 75 mg PO QAM RF: 0 oxybutynin chloride 10 mg tablet extended release 24hr 10 mg PO HS RF: 0 losartan 25 mg tablet 25 mg PO HS RF: 0 ergocalciferol (vitamin D2) [Vitamin D2] 1,250 mcg (50,000 unit) capsule 50,000 unit PO FR RF: 0 polyethylene glycol 3350 [Miralax] 17 gram Powder In Packet 17 g PO BID Qty: 30 RF: 0 sennosides [Senokot] 8.6 mg Tablet 17.2 mg PO QAM Qty: 30 RF: 0 fentanyl 25 mcg/hr patch 72 hour 1 patch transdermal Q72H Qty: 2 RF: 0 metformin 500 mg tablet extended release 24 hr 1,000 mg PO HS Qty: 60 RF: 0 enoxaparin 150 mg/mL syringe 127.5 mg subcut DAILY Qty: 10 RF: 3 Discontinued ferrous sulfate 325 mg (65 mg iron) tablet,delayed release (DR/EC) 325 mg PO BID Qty: 60 RF: 5 clonazepam 0.5 mg tablet 0.25 mg PO HS PRN (Reason: Unknown) RF: 0 docusate sodium 100 mg Capsule 100 mg PO BID Qty: 60 RF: 0 oxycodone 5 mg Tablet 5 mg PO Q4H PRN (Reason: pain) Qty: 20 RF: 0 azithromycin 250 mg tablet 250 mg PO DAILY 3 Days Qty: 3 RF: 0 Discharge Orders: Discharge Order (Routine); Ordered 07/18/20 Ordered By: Grady Myers Admission Data Admit Date/Time: 07/13/20 20:20 Attending Provider: Grady Myers Admit Provider: Diego Adames Primary Care Provider: Brent Dye III Other Providers: Diego Aadmes ; [facility] ; Mario Marie ; Angelina Humphrey Coding Level of Care Code D/C Day Management >30 mins Diagnoses Cancer associated pain G89.3 Pancreatic cancer C25.9 Pancreatic malignancy location: unspecified Superior mesenteric vein thrombosis K55.069 Hypokalemia E87.6 Constipation K59.00 Anxiety F41.9 Intractable vomiting R11.10
--- NOTE | 2020-07-19 11:43 | Palliative Care Progress Note ---
Date of Service July 19, 2020 Assessment & Plan (1) Intractable abdominal pain: Improved with fentanyl patch, prn hydromorphone and methadone with adjuvant lidocaine patch and gabapentin. We will f/u in office on 07/25 at 2pm. (2) Anxiety: On med review, she has orders for lorazepam at hs and clonazepam TID prn. She had been on clonazepam prn at home which was effective. Will d/c lorazepam. (3) Constipation: Chronic, now also opioid induced with decreased po intake. Relieved with methylnaltrexone. Continue miralax and senna at home. (4) Pancreatic cancer: Admission and Anticipated Discharge Date Admission Date: July 13, 2020 Subjective Had some nausea and vomiting last night but feels better this morning. Ate breakfast with no difficulty. Denies nausea at this time. Pain is currently 7/10. She has not had prn dilaudid yet today. Three prn doses yesterday which decrease pain to 5-6 range. Review of Systems Review of Systems: [place] Symptom Assessment Scale Pain 3/3 Dyspnea 0/3 Nausea 0/3 Anxiety 1/3 Drowsiness 0/3 Palliative Performance Score 60% Physical Exam Constitutional: no acute distress moving in bed without difficulty ENMT: Mouth: no oral mucosal abnormality Neck: normal visual inspection Respiratory: normal respiratory effort; no labored breathing Cardiovascular: Extremities: no edema Gastrointestinal (Abdomen): Inspection/Auscultation: abdomen not distended Percussion/Palpation: + abdomen tender (epigastrium, LUQ) Musculoskeletal: Extremities: extremities normal to inspection Skin: warm and dry Neurologic: no focal motor deficits Psychiatric: Orientation: alert and oriented x 3 Results & Data ([facility]) Vital Signs (Past 12 Hours) Vital Signs Temp Pulse Resp BP Pulse Ox 07/19/20 07:40 98.4 F 90 18 102/67 97 PG Care Time/CCT Total # of Minutes Spent Total Time Spent with Patient: Total time spent is greater than 50% in coordination of care (as documented) at patient's floor/unit and/or counseling patient: Coding Level of Care Code 98038 Subseq Hosp Care Lvl 2 Diagnoses Intractable abdominal pain R10.9 Anxiety F41.9 Constipation K59.00 Pancreatic cancer C25.9
[2020-07-19] MEDS: HYDROmorphone HCL 2 MG TAB PO PRN (12:02)
== END 2020-07-19 12:50 | disposition home health service (06) | DRG 947 ==
LOC: ED 14:45 → 3W 20:20 → SUATTDRO 20:20 → 3W 21:11

== ENCOUNTER 2020-08-18 16:54 | Inpatient (IN) ==
[2020-08-18] MEDS ORDERED: SODIUM CHLORIDE 0.9% 1000ML 1,000 ML IV ONE (18:24)
[2020-08-18 19:10] LABS: Hematocrit (blood only) 31.6 % (37-47); Hemoglobin 10.4 g/dL (12.0-16.0); Mean Corpuscular Hemoglobin 28.3 pg (25-34); Mean Corpuscular Hgb Conc 32.9 g/dL (32-36); Mean Corpuscular Volume 86.1 fL (80-100); Mean Platelet Volume 10.8 fL (7.4-10.4); Platelet Count 105 K/uL (130-400); RDW Coefficient of Variation 15.4 % (11.5-14.5); RDW Standard Deviation 47.3 fL (36.4-46.3); Red Blood Count 3.67 M/uL (4.2-5.4); White Blood Count 1.46 K/uL (4.8-10.8)
--- NOTE | 2020-08-18 19:17 | XRay Report ---
XR chest 1V portable HISTORY: 60 years-old Female SEPSIS acute sepsis COMPARISON: Chest radiograph 07/13/2020 TECHNIQUE: Portable AP view the chest FINDINGS: Chronic left hemidiaphragmatic elevation. Cardiac silhouette is enlarged. Stable positioning of the l eft subclavian [id number] catheter. Median sternotomy with surgical clips again noted projecting over the mediastinum. No pneumothorax, l arge pleural effusion or overt pulmonary edema. No airspace consolidation typical for pneumonia. Bone s appear grossly intact. IMPRESSION: Chronic findings as above without acute process. ACT 112: Negative or not required by law. The above report was generated using voice recognition software. It may contain grammatical, syntax o r spelling errors. Electronically signed by: Blue Rod M.D. 08/18/2020 7:16 PM
[2020-08-18 19:19] LABS: Partial Thromboplastin Ratio 1.2; Partial Thromboplastin Time 31.4 Seconds (21.0-31.0); Prothrombin Time 10.4 Seconds (9.0-12.0)
[2020-08-18] MEDS ORDERED: VANCOMYCIN HCL 1,500 MG in SODIUM CHLORIDE 0.9% 500 ML IV ONE (19:19)
[2020-08-18] MEDS ORDERED: VANCOMYCIN CONSULT ACTIVE PRN ×2 (19:19→22:11)
[2020-08-18 19:23] LABS: Alanine Aminotransferase 69 U/L (12-78); Albumin Level 3.5 gm/dl (3.4-5.0); Aspartate Aminotransferase 30 U/L (15-37); BUN Creatinine Ratio 10.2 (10-20); Blood Urea Nitrogen 7 mg/dl (7-18); Calcium 8.9 mg/dl (8.5-10.1); Carbon Dioxide 25 mmol/L (21-32); Chloride 107 mmol/L (98-107); Est GFR (African American) 113.2; Est GFR (Non-African American) 97.7; Glucose 78 mg/dl (70-99); Magnesium 1.9 mg/dl (1.8-2.4); Potassium 3.6 mmol/L (3.5-5.1); Sodium 140 mmol/L (136-145)
[2020-08-18 19:28] LABS: Albumin Globulin Ratio 1.1 (0.9-2); Alkaline Phosphatase 122 U/L (45-117); Bilirubin,Total 0.4 mg/dl (0.2-1); Globulin 3.3 gm/dl (2.5-4.0); NT Pro B Type Natriuretic Pept 510 pg/ml (0-900); Total Protein 6.8 gm/dl (6.4-8.2); Troponin I < 0.015 ng/ml (0-0.045)
[2020-08-18 19:31] LABS: Eosinophils # (auto) 0.13 K/uL (0-0.5); Eosinophils % (auto) 8.9 %; Immature Granulocytes # (auto) 0.01 K/uL (0.00-0.02); Immature Granulocytes % (auto) 0.7 %; Lymphocytes # (auto) 0.76 K/uL (1.2-3.4); Lymphocytes % (auto) 52.1 %; Monocytes # (auto) 0.11 K/uL (0.11-0.59); Monocytes % (auto) 7.5 %; Neutrophils # (auto) 0.45 K/uL (1.4-6.5); Neutrophils % (auto) 30.8 %
--- NOTE | 2020-08-18 20:29 | Emergency Department Note ---
History of Present Illness General Chief complaint: Illness Stated complaint: BOTH LEGS SWOLLEN-L LEG WORSE-SLIGHT FEVER-CANCER Time Seen by Provider: 08/18/20 18:26 History of Present Illness Provider complaint: Right lower extremity redness not improving Onset (ago): day(s) 3 Location: lower extremity and right Severity: moderate Maximum Pain Intensity: 6 Associated symptoms: + rash and + weakness; no chest pain, no cough, no fever/chills, no headaches, no nausea/vomiting, no shortness of breath and no syncope 60-year-old female presents emergency department for redness over the right lower extremity. Patient reports she was seen in the emergency department Wednesday discharged with prescription Keflex for this however despite taking the antibiotic her redness is worsening. The patient reports no fevers. She reports a swelling in her right lower extremity is getting worse. Patient is on Lovenox. Patient does have a history of pancreatic cancer and received chemotherapy on Wednesday. No abdominal pain cough nausea vomiting or diarrhea. Home Medications Medication Instructions Recorded Confirmed Type multivitamin 1 tab PO QAM 10/26/18 08/18/20 History galcanezumab-gnlm 120 mg/mL 120 mg SQ MONTHLY 30 Days #1 ml 01/04/20 08/18/20 Rx subcutaneous pen injector gabapentin 800 mg tablet 800 mg PO TID #90 tab 04/10/20 08/18/20 Rx buspirone 30 mg PO HS 04/16/20 08/18/20 History pantoprazole 40 mg PO QAM 30 Days #30 tab 05/15/20 08/18/20 Rx acetaminophen [Tylenol Extra 1,000 mg PO DIRECTED PRN 06/12/20 08/18/20 History Strength] naloxone 4 mg/actuation nasal spray 4 mg INTRANASAL Q2M PRN #2 ea 06/24/20 08/18/20 Rx rizatriptan 10 mg tablet 10 mg PO .COMPLEX PRN 90 Days #27 06/24/20 08/18/20 Rx tab metformin 1,000 mg PO HS #60 tab 07/12/20 08/18/20 Rx fentanyl 25 mcg/hr transdermal 1 patch TRANSDERMAL Q72H #10 ea 07/25/20 08/18/20 Rx patch ondansetron HCl 8 mg tablet 8 mg PO Q8H PRN 08/01/20 08/18/20 History prochlorperazine maleate 10 mg 10 mg PO Q6H PRN 08/01/20 08/18/20 History tablet hydromorphone 4 mg tablet 4 mg PO Q4H PRN #60 tab 08/09/20 08/18/20 Rx atorvastatin 40 mg PO QAM 08/18/20 08/18/20 History docusate sodium [Colace] 100 mg PO QPM 08/18/20 08/18/20 History enoxaparin 140 mg SUBCUT QAM 08/18/20 08/18/20 History ergocalciferol (vitamin D2) 1,250 mcg PO WK 08/18/20 08/18/20 History [Vitamin D2] fentanyl 50 mcg TRANSDERMAL Q72H 08/18/20 08/18/20 History lorazepam 0.5 mg PO Q6H PRN 08/18/20 08/18/20 History lorazepam 1 mg PO HS 08/18/20 08/18/20 History methadone 2.5 mg PO AMHS 08/18/20 08/18/20 History metoclopramide HCl 10 mg PO Q12H PRN 08/18/20 08/18/20 History polyethylene glycol 3350 [Miralax] 17 g PO BIDM 08/18/20 08/18/20 History promethazine 25 mg PO BID PRN 08/18/20 08/18/20 History sennosides 17.2 mg PO QDL 08/18/20 08/18/20 History tizanidine 4 mg PO Q6H PRN 08/18/20 08/18/20 History topiramate 100 mg PO QAM 08/18/20 08/18/20 History Allergies Allergy/AdvReac Type Severity Reaction Status Date / Time latex Allergy Intermediate rash Verified 08/18/20 19:23 sulfamethoxazole Allergy Intermediate itching, Verified 08/18/20 19:23 chest tightness trimethoprim Allergy Intermediate itching, Verified 08/18/20 19:23 chest tightness adhesive Allergy Unknown ITCHY SKIN Verified 08/18/20 19:23 clindamycin AdvReac Severe Diarrhea Verified 08/18/20 19:23 doxycycline AdvReac Intermediate nausea and Verified 08/18/20 19:23 vomiting Past Med/Surg History Medical History Abdominal pain Acute pancreatitis Anxiety Constipation Depression (09/09/12) Diabetes Headache History of uterine fibroid Hyperlipidemia Hypertension Intractable vomiting Migraine (09/09/12) Nausea & vomiting Pancreatic duct stricture Pancreatitis, acute Panic attack (09/09/12) PMB (postmenopausal bleeding) Thrombus Surgical History 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 Umanzor 07/10/2020 S/P surgical removal of pilonidal cyst Family History Sister Endometrial cancer Arthritis Celiac disease Hypertension Diabetes Mother Hypertension Congestive heart failure (CHF) Kidney failure Heart disease Father Parkinson disease Myocardial infarction Graves disease Skin cancer Denies family history of Ovarian cancer Prostate cancer Breast cancer Colorectal cancer Social History Smoking Status: Former smoker Tobacco Type: Cigarettes Age Started Using Tobacco: 21; Age Quit Using Tobacco: 58; packs per day: 1; Years Smoked: 37; Cigarettes Per Day: 2; Number of Years Since Quit: 1; Second Hand Exposure: No; Hx Alcohol Use: No Hx Substance Use: No Preferred Language: Tajik Communication Ability: Effective Visual Impairment: No Limitations Hearing Ability: Normal Telecommunication Tower Technician Required: No Beliefs That Will Affect Care: None marital status: Current Living Situation: Family Current Living Situation Comment: sister current occupational status: disabled Feels Safe at Home: Yes Childhood Exposure to Second-Hand Smoke: No Dental Care, Regularly: No Physical Activity Frequency: Does not Exercise Seatbelt Use: always Sunscreen Use: Yes Assistive Devices: None Review of Systems A total of 10 systems reviewed and were otherwise negative Physical Exam Vital Signs Vital Signs - 24 hr 08/18/20 17:04 08/18/20 19:00 08/18/20 19:02 Temperature 36.0 C L Temperature Source Temporal Artery Scan Pulse Rate 76 76 73 Pulse Rate from SpO2 Sensor 76 75 Respiratory Rate 18 18 18 Respiratory Effort / Characteristics Respiratory Depth Normal Blood Pressure 92/57 L 103/64 Blood Pressure Mean 68 77 Pulse Oximetry 99 94 96 Oxygen Delivery Method Room Air Sepsis Recent Fever Within 48 Hours No Sepsis New/Unexplained Change in Mental Status N/A Sepsis Action Taken by Nursing No Action Required 08/18/20 19:15 08/18/20 19:30 08/18/20 19:31 Temperature Temperature Source Pulse Rate 75 75 75 Pulse Rate from SpO2 Sensor 77 76 76 Respiratory Rate 20 17 14 Respiratory Effort / Characteristics Respiratory Depth Blood Pressure 101/68 Blood Pressure Mean 79 Pulse Oximetry 90 95 97 Oxygen Delivery Method Sepsis Recent Fever Within 48 Hours Sepsis New/Unexplained Change in Mental Status Sepsis Action Taken by Nursing 08/18/20 19:43 Temperature Temperature Source Pulse Rate Pulse Rate from SpO2 Sensor Respiratory Rate 18 Respiratory Effort / Characteristics Non-Labored Respiratory Depth Blood Pressure Blood Pressure Mean Pulse Oximetry 98 Oxygen Delivery Method Room Air Sepsis Recent Fever Within 48 Hours Sepsis New/Unexplained Change in Mental Status Sepsis Action Taken by Nursing Physical Exam GENERAL: She is oriented to person, place, and time. She appears well-developed and well-nourished. She does not appear distressed. HENT: Exam performed. -Head: Normocephalic and atraumatic. -Right Ear: External ear normal. No mastoid tenderness. -Left Ear: External ear normal. No mastoid tenderness. -Mouth/Throat: The oropharynx is clear and moist. No trismus in the jaw. No dental abscesses or uvula swelling. No oropharyngeal exudate or tonsillar abscesses. EYES: Conjunctivae and EOM are normal. Pupils are equal, round, and reactive to light. Right eye exhibits no discharge. Left eye exhibits no discharge. No scleral icterus. NECK: Normal range of motion. Neck supple. No JVD present. No spinous process tenderness present. No carotid bruit present. No rigidity. No tracheal deviation and normal range of motion present. No Brudzinski's sign and no Kernig's sign noted. CV: Normal rate, regular rhythm, normal heart sounds and intact distal pulses. There is no peripheral edema. Palpable radial pulses bue. PULM/CHEST: Effort normal and breath sounds normal. No respiratory distress. No stridor. She has no wheezes. She has no rales. -Chest Wall: She exhibits no tenderness. ABD: The abdomen is soft. Bowel sounds are normal. She has no distension. No mass is present. There is no tenderness. There is no rebound, no guarding, no Porras's sign and no tenderness at McBurney's point. Rovsig negative MUSC/SKEL: Normal range of motion. There is no peripheral edema, tenderness or deformity. LYMPH: No cervical adenopathy. NEURO: She is alert and oriented to person, place, and time. She has normal strength. No cranial nerve deficit or sensory deficit. Coordination and gait normal. GCS eye subscore is 4. GCS verbal subscore is 5. GCS motor subscore is 6. Cerebellar tests wnl. SKIN: Erythema and warmth over the dorsal aspect of the right lower extremity consistent with appearance of cellulitis. No vesicles. No fluctuant areas. PSYCH: She has a normal mood and affect. Behavior is normal. Judgment and thou ght content normal. Course Course 1825: The patient was evaluated in room A9. A complete history and physical exam was performed Cardiac monitoring: An order was placed for continuous cardiac monitoring. The monitor shows a rate of 70 with sinus rhythm EMR reviewed. Patient was seen in the emergency department on August 16, 2020, 2 days ago. Patient was discharged with prescription Keflex for cellulitis. 1945: Vital signs stable. Labs within normal limits with the exception of a low neutrophil count. Patient be treated with vancomycin for her worsening cellulitis. [facility] will be [facility]. Administered Medications Vancomycin HCl 1,500 mg/ (Sodium Chloride) 530 mls @ 200 mls/hr IV NOW ONE Stop: 08/18/20 21:57 Last Admin: 08/18/20 19:37 Dose: 200 mls/hr Documented by: [id number] Discontinued Medications Sodium Chloride (Nss 1000ml) 1,000 mls @ 999 mls/hr IV .Q1H1M ONE Stop: 08/18/20 19:24 Last Admin: 08/18/20 19:25 Dose: 999 mls/hr Documented by: [id number] Medical Decision Making Laboratory Data Result diagrams: 08/18/20 18:54 08/18/20 18:54 Lab Results 08/18/20 08/18/20 08/18/20 Range/Units 18:54 18:54 18:54 WBC 1.46 L (4.8-10.8) K/uL RBC 3.67 L (4.2-5.4) M/uL Hgb 10.4 L (12.0-16.0) g/dL Hct 31.6 L (37-47) % MCV 86.1 (80-100) fL MCH 28.3 (25-34) pg MCHC 32.9 (32-36) g/dL RDW Std Deviation 47.3 H (36.4-46.3) fL RDW Coeff of Natali 15.4 H (11.5-14.5) % Plt Count 105 L (130-400) K/uL MPV 10.8 H (7.4-10.4) fL Immature Gran % (Auto) 0.7 % Neut % (Auto) 30.8 % Lymph % (Auto) 52.1 % [place] % (Auto) 7.5 % Eos % (Auto) 8.9 % Baso % (Auto) 0.0 % Neut # (Auto) 0.45 L* (1.4-6.5) K/uL Lymph # (Auto) 0.76 L (1.2-3.4) K/uL [place] # (Auto) 0.11 (0.11-0.59) K/uL Eos # (Auto) 0.13 (0-0.5) K/uL Baso # (Auto) 0.00 (0-0.2) K/uL Immature Gran # (Auto) 0.01 (0.00-0.02) K/uL PT 10.4 (9.0-12.0) Seconds INR 1.0 (0.9-1.1) APTT 31.4 H (21.0-31.0) Seconds PTT Ratio 1.2 Sodium 140 (136-145) mmol/L Potassium 3.6 (3.5-5.1) mmol/L Chloride 107 (98-107) mmol/L Carbon Dioxide 25 (21-32) mmol/L Anion Gap 9.0 (3-11) BUN 7 (7-18) mg/dl Creatinine 0.64 (0.6-1.2) mg/dl Est Cr Clr Drug Dosing 97.0 ml/min Est GFR ( Amer) 113.2 Est GFR (Non-Af Amer) 97.7 BUN/Creatinine Ratio 10.2 (10-20) Glucose 78 (70-99) mg/dl Lactate (0.4-2.0) mmol/L Calcium 8.9 (8.5-10.1) mg/dl Magnesium 1.9 (1.8-2.4) mg/dl Total Bilirubin 0.4 (0.2-1) mg/dl AST 30 (15-37) U/L ALT 69 (12-78) U/L Alkaline Phosphatase 122 H (45-117) U/L Troponin I < 0.015 (0-0.045) ng/ml NT-Pro-B Natriuret Pep 510 (0-900) pg/ml Total Protein 6.8 (6.4-8.2) gm/dl Albumin 3.5 (3.4-5.0) gm/dl Globulin 3.3 (2.5-4.0) gm/dl Albumin/Globulin Ratio 1.1 (0.9-2) Procalcitonin (0-0.5) ng/ml COVID-19 Eval Order 08/18/20 08/18/20 08/18/20 Range/Units 18:54 18:54 19:47 WBC (4.8-10.8) K/uL RBC (4.2-5.4) M/uL Hgb (12.0-16.0) g/dL Hct (37-47) % MCV (80-100) fL MCH (25-34) pg MCHC (32-36) g/dL RDW Std Deviation (36.4-46.3) fL RDW Coeff of Natali (11.5-14.5) % Plt Count (130-400) K/uL MPV (7.4-10.4) fL Immature Gran % (Auto) % Neut % (Auto) % Lymph % (Auto) % [place] % (Auto) % Eos % (Auto) % Baso % (Auto) % Neut # (Auto) (1.4-6.5) K/uL Lymph # (Auto) (1.2-3.4) K/uL [place] # (Auto) (0.11-0.59) K/uL Eos # (Auto) (0-0.5) K/uL Baso # (Auto) (0-0.2) K/uL Immature Gran # (Auto) (0.00-0.02) K/uL PT (9.0-12.0) Seconds INR (0.9-1.1) APTT (21.0-31.0) Seconds PTT Ratio Sodium (136-145) mmol/L Potassium (3.5-5.1) mmol/L Chloride (98-107) mmol/L Carbon Dioxide (21-32) mmol/L Anion Gap (3-11) BUN (7-18) mg/dl Creatinine (0.6-1.2) mg/dl Est Cr Clr Drug Dosing ml/min Est GFR ( Amer) Est GFR (Non-Af Amer) BUN/Creatinine Ratio (10-20) Glucose (70-99) mg/dl Lactate 1.9 (0.4-2.0) mmol/L Calcium (8.5-10.1) mg/dl Magnesium (1.8-2.4) mg/dl Total Bilirubin (0.2-1) mg/dl AST (15-37) U/L ALT (12-78) U/L Alkaline Phosphatase (45-117) U/L Troponin I (0-0.045) ng/ml NT-Pro-B Natriuret Pep (0-900) pg/ml Total Protein (6.4-8.2) gm/dl Albumin (3.4-5.0) gm/dl Globulin (2.5-4.0) gm/dl Albumin/Globulin Ratio (0.9-2) Procalcitonin < 0.05 (0-0.5) ng/ml COVID-19 Eval Order CovFluRsv at [facility] Imaging Data Radiologist's Impression: Chest X-Ray 08/18/20 18:24 XR chest 1V portable HISTORY: 60 years-old Female SEPSIS acute sepsis COMPARISON: Chest radiograph 07/13/2020 TECHNIQUE: Portable AP view the chest FINDINGS: Chronic left hemidiaphragmatic elevation. Cardiac silhouette is enlarged. Stable positioning of the left subclavian [id number]-[id number] catheter. Median sternotomy with surgical clips again noted projecting over the medi astinum. No pneumothorax, large pleural effusion or overt pulmonary edema. No airspace consolidation typical for pneumonia. Bones appear grossly intact. IMPRESSION: Chronic findings as above without acute process. ACT 112: Negative or not required by law. The above report was generated using voice recognition software. It may contain grammatical, syntax or spelling errors. Electronically signed by: Blue Rod M.D. 08/18/2020 7:16 PM ECG Data Indication: + other (sepsis) Rate (beats per minute): 75 Rhythm: + normal sinus ECG Intervals/blocks: + Normal QRS, + Normal [place] and + Normal QT-c ECG ST segments: + Normal ST segments MDM Narrative Vital signs stable. Labs within normal limits with the exception of a low neutrophil count. Patient be treated with vancomycin for her worsening cellulitis. Patient will be admitted to the [facility] hospitalist team Dr. Martin will be notified. Impression & Plan Cellulitis Discharge Plan Visit Data Chief Complaint: Illness Stated Complaint: BOTH LEGS SWOLLEN-L LEG WORSE-SLIGHT FEVER-CANCER ED Provider: Bird Isaac Discharge Problem: Cellulitis Patient Disposition: Being Evaluated by Hospitalist Forms Stand Alone Forms: My [facility] Prescriptions Prescriptions: No Action rizatriptan 10 mg tablet 10 mg PO .COMPLEX PRN (Reason: Migraine Headache) 90 Days Qty: 27 RF: 1 multivitamin [Daily Multi-Vitamin] tablet 1 tab PO QAM RF: 0 ondansetron HCl 8 mg tablet 8 mg PO Q8H PRN (Reason: Nausea) RF: 0 prochlorperazine maleate 10 mg tablet 10 mg PO Q6H PRN (Reason: Nausea) RF: 0 fentanyl 25 mcg/hr patch 72 hour 1 patch transdermal Q72H Qty: 10 RF: 0 gabapentin 800 mg tablet 800 mg PO TID Qty: 90 RF: 5 Narcan 4 mg/actuation spray,non-aerosol 4 mg intranasal Q2M PRN (Reason: opioid overdose) Qty: 2 RF: 0 hydromorphone 4 mg tablet 4 mg PO Q4H PRN (Reason: pain) Qty: 60 RF: 0 Emgality Pen 120 mg/mL pen injector 120 mg SQ MONTHLY 30 Days Qty: 1 RF: 5 pantoprazole 40 mg Tablet,Delayed Release (Dr/Ec) 40 mg PO QAM 30 Days Qty: 30 RF: 3 acetaminophen [Tylenol Extra Strength] 500 mg Tablet 1,000 mg PO DIRECTED PRN (Reason: Pain) RF: 0 buspirone 30 mg tablet 30 mg PO HS RF: 0 metformin 500 mg tablet extended release 24 hr 1,000 mg PO HS Qty: 60 RF: 0 fentanyl 50 mcg/hr patch 72 hour 50 mcg transdermal Q72H RF: 0 sennosides 8.6 mg Tablet 17.2 mg PO QDL RF: 0 promethazine 25 mg Tablet 25 mg PO BID PRN (Reason: NAUSEA/VOMITING) RF: 0 docusate sodium [Colace] 100 mg Capsule 100 mg PO QPM RF: 0 ergocalciferol (vitamin D2) [Vitamin D2] 1,250 mcg (50,000 unit) Capsule 1,250 mcg PO WK RF: 0 lorazepam 1 mg Tablet 1 mg PO HS RF: 0 lorazepam 1 mg tablet 0.5 mg PO Q6H PRN (Reason: Anxiety) RF: 0 methadone 5 mg Tablet 2.5 mg PO AMHS RF: 0 metoclopramide HCl 10 mg Tablet 10 mg PO Q12H PRN (Reason: NAUSEA/VOMITING) RF: 0 atorvastatin 40 mg tablet 40 mg PO QAM RF: 0 polyethylene glycol 3350 [Miralax] 17 gram powder in packet 17 g PO BIDM RF: 0 tizanidine 4 mg tablet 4 mg PO Q6H PRN (Reason: muscle spasticity) RF: 0 enoxaparin 150 mg/mL syringe 140 mg subcut QAM RF: 0 topiramate 100 mg cap,sprinkle,ER 24hr dose pack 100 mg PO QAM RF: 0 Referrals Referrals: Brent Dye III, CRNP [Primary Care Provider] - Discharge Problem: Cellulitis Qualifiers: Site of cellulitis: extremity Site of cellulitis of extremity: lower extremity Laterality: unspecified laterality Qualified Code(s): L03.119 - Cellulitis of unspecified part of limb
[2020-08-18 20:44] LABS: Influenza A virus by PCR Negative (Neg); Influenza B virus by PCR Negative (Neg); RSV by PCR Negative (Neg); SARS CoV2 RNA(COVID-19) InHosp NEGATIVE (Negative)
[2020-08-18] MEDS ORDERED: PIPERACILL/TAZOBAC CONSULT ACTIVE PRN (20:50)
[2020-08-18] MEDS ORDERED: PIPERACILLIN/TAZOBACTAM 4.5 GM/120 ML BAG IV STA (20:52)
[2020-08-18] MEDS ORDERED: METOCLOPRAMIDE HCL 10 MG TABLET PO PRN (22:11)
[2020-08-18] MEDS ORDERED: PROCHLORPERAZINE MALEATE 10 MG TAB PO PRN (22:11)
[2020-08-18] MEDS ORDERED: CARBOHYDRATES FOR HYPOGLYCEMIA PO PRN (22:11)
[2020-08-18] MEDS ORDERED: GLUCOSE 40% GEL 15 GM TUBE PO PRN (22:11)
[2020-08-18] MEDS ORDERED: GLUCOSE 10 TABS/TUBE PO PRN (22:11)
[2020-08-18] MEDS ORDERED: PROMETHAZINE HCL 25 MG TAB PO PRN (22:11)
[2020-08-18] MEDS ORDERED: GLUCAGON FOR INJ 1 MG VIAL SQ PRN (22:11)
[2020-08-18] MEDS ORDERED: DEXTROSE 50% 50 ML SYRINGE IV PRN (22:11)
[2020-08-18] MEDS ORDERED: LORazepam 1 MG TAB PO PRN (22:26)
[2020-08-18] MEDS ORDERED: NALOXONE HCL 0.4 MG/1 ML VIAL/CARP IV PRN (22:50)
[2020-08-18] MEDS: LORazepam 1 MG TAB PO SCH (23:40)
[2020-08-18] MEDS: CHECK fentaNYL PATCH PLACEMENT SCH (23:57)
--- NOTE | 2020-08-19 03:02 | History & Physical Report ---
Date of Service August 19, 2020 Patient was seen and examined on August 18, 2020 Assessment & Plan (1) Neutropenia associated with infection: Neutropenia associated with right lower extremity cellulitis/chemotherapy for pancreatic cancer/failure of outpatient treatment Neutropenia precautions Vancomycin IV and Zosyn IV per pharmacokinetic monitoring Discontinue outpatient Keflex that she has been on for 3 days Present on Admission?: Yes (2) Cellulitis of leg, right: See above Present on Admission?: Yes (3) Pancreatic cancer: Pancreatic cancer/chronic pain syndrome Has received third round of chemotherapy. Continue acetaminophen 1000 mg p.o. at bedtime and 650 mg p.o. every 6 hours as needed mild pain or fever Continue fentanyl transdermal 75 mcg patch Continue hydromorphone 4 mg p.o. routinely every 4 hours as per outpatient schedule while awake Methadone 2.5 mg p.o. a.m. and at bedtime Continue other supportive medications: Topiramate, promethazine, prochlorperazine. Patient is no longer on tizanidine or rizatriptan Consult her oncologist Dr. Lara Present on Admission?: Yes (4) Superior mesenteric vein thrombosis: Continue enoxaparin 140 mg subcu every morning Present on Admission?: Yes (5) Restless legs syndrome: Continue topiramate Present on Admission?: Yes (6) Depression with anxiety: Continue buspirone Present on Admission?: Yes (7) Diabetes: Hold Metformin. Patient Accu-Cheks before meals and at bedtime with NovoLog coverage per scale Present on Admission?: Yes (8) Hyperlipidemia: Continue atorvastatin Present on Admission?: Yes Admission and Anticipated Discharge Date Admission Date: August 18, 2020 History of Present Illness Chief Complaint: The patient presents to the emergency department with complaint of worsening right > left lower extremity swelling and redness despite being started on Keflex in the ED on 08/16/2020. Primary Care Provider: Brent Dye III, [place] The patient is a 60-year-old female with a past medical history including pancreatic cancer, having undergone her third chemo treatment 6 days ago, anxiety, constipation, multiple pulmonary nodules, upper GI bleed, abdominal lymphadenopathy, superior mesenteric vein thrombosis, renal stone, liver nodule, chronic migraine, vitamin D deficiency, RLS, this metabolic syndrome X, depression with anxiety, diabetes, mild COPD, hypertension and hyperlipidemia. She was initially assessed 3 days ago in the ED for a right greater than left lower extremity cellulitis, and was started on Keflex. She presented to the ED this evening with worsening symptoms. Work-up in the emergency department included the following labs: WBC 1.46, ANC 450 and COVID-19 negative. Allergies Allergy/AdvReac Type Severity Reaction Status Date / Time latex Allergy Intermediate rash Verified 08/18/20 19:23 sulfamethoxazole Allergy Intermediate itching, Verified 08/18/20 19:23 chest tightness trimethoprim Allergy Intermediate itching, Verified 08/18/20 19:23 chest tightness adhesive Allergy Unknown ITCHY SKIN Verified 08/18/20 19:23 clindamycin AdvReac Severe Diarrhea Verified 08/18/20 19:23 doxycycline AdvReac Intermediate nausea and Verified 08/18/20 19:23 vomiting Home Medications Medication Instructions Recorded Confirmed Type multivitamin 1 tab PO QAM 10/26/18 08/18/20 History galcanezumab-gnlm 120 mg/mL 120 mg SQ MONTHLY 30 Days #1 ml 01/04/20 08/18/20 Rx subcutaneous pen injector gabapentin 800 mg tablet 800 mg PO TID #90 tab 04/10/20 08/18/20 Rx buspirone 30 mg PO HS 04/16/20 08/18/20 History pantoprazole 40 mg PO QAM 30 Days #30 tab 05/15/20 08/18/20 Rx acetaminophen [Tylenol Extra 1,000 mg PO DIRECTED PRN 06/12/20 08/18/20 History Strength] naloxone 4 mg/actuation nasal spray 4 mg INTRANASAL Q2M PRN #2 ea 06/24/20 08/18/20 Rx rizatriptan 10 mg tablet 10 mg PO .COMPLEX PRN 90 Days #27 06/24/20 08/18/20 Rx tab metformin 1,000 mg PO HS #60 tab 07/12/20 08/18/20 Rx fentanyl 25 mcg/hr transdermal 1 patch TRANSDERMAL Q72H #10 ea 07/25/20 08/18/20 Rx patch ondansetron HCl 8 mg tablet 8 mg PO Q8H PRN 08/01/20 08/18/20 History prochlorperazine maleate 10 mg 10 mg PO Q6H PRN 08/01/20 08/18/20 History tablet hydromorphone 4 mg tablet 4 mg PO Q4H PRN #60 tab 08/09/20 08/18/20 Rx atorvastatin 40 mg PO QAM 08/18/20 08/18/20 History docusate sodium [Colace] 100 mg PO QPM 08/18/20 08/18/20 History enoxaparin 140 mg SUBCUT QAM 08/18/20 08/18/20 History ergocalciferol (vitamin D2) 1,250 mcg PO WK 08/18/20 08/18/20 History [Vitamin D2] fentanyl 50 mcg TRANSDERMAL Q72H 08/18/20 08/18/20 History lorazepam 0.5 mg PO Q6H PRN 08/18/20 08/18/20 History lorazepam 1 mg PO HS 08/18/20 08/18/20 History methadone 2.5 mg PO AMHS 08/18/20 08/18/20 History metoclopramide HCl 10 mg PO Q12H PRN 08/18/20 08/18/20 History polyethylene glycol 3350 [Miralax] 17 g PO BIDM 08/18/20 08/18/20 History promethazine 25 mg PO BID PRN 08/18/20 08/18/20 History sennosides 17.2 mg PO QDL 08/18/20 08/18/20 History tizanidine 4 mg PO Q6H PRN 08/18/20 08/18/20 History topiramate 100 mg PO QAM 08/18/20 08/18/20 History Past Med/Surg History Medical History Abdominal pain Acute pancreatitis Anxiety Constipation Depression (09/09/12) Diabetes Headache History of uterine fibroid Hyperlipidemia Hypertension Intractable vomiting Migraine (09/09/12) Nausea & vomiting Pancreatic duct stricture Pancreatitis, acute Panic attack (09/09/12) PMB (postmenopausal bleeding) Thrombus Surgical History 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 Umanzor 07/10/2020 S/P surgical removal of pilonidal cyst Family History Sister Endometrial cancer Arthritis Celiac disease Hypertension Diabetes Mother Hypertension Congestive heart failure (CHF) Kidney failure Heart disease Father Parkinson disease Myocardial infarction Graves disease Skin cancer Denies family history of Ovarian cancer Prostate cancer Breast cancer Colorectal cancer Social History Smoking Status: Former smoker Tobacco Type: Cigarettes Age Started Using Tobacco: 21; Age Quit Using Tobacco: 58; packs per day: 1; Years Smoked: 37; Cigarettes Per Day: 2; Number of Years Since Quit: 1; Second Hand Exposure: No; Do You Dip or Chew Tobacco: No; Hx Alcohol Use: No Hx Substance Use: No Preferred Language: Kinyarwanda Communication Ability: Effective Visual Impairment: No Limitations Hearing Ability: Normal Head Orthopedic Team Physician Required: No Beliefs That Will Affect Care: None marital status: Current Living Situation: Family Current Living Situation Comment: with sister current occupational status: disabled Other Information That Helps Us Care for You: No Feels Safe at Home: Yes Safety Concerns: Feels Safe At This Time Childhood Exposure to Second-Hand Smoke: No Dental Care, Regularly: No Physical Activity Frequency: Does not Exercise Seatbelt Use: always Sunscreen Use: Yes Assistive Devices: Glasses Review of Systems Review of Systems: The patient denies chest pain, palpitations, shortness of breath, dyspnea on exertion, cough, sore throat, fevers, chills, sweats, weight change, fatigue, nausea, vomiting, diarrhea , constipation, abdominal pain, pelvic pain, blood in urine or stool, dysuria, urinary frequency or urgency, lightheadedness, dizziness, headache, memory loss, loss of consciousness, imbalance, focal or generalized weakness, numbness or tingling in arms, generalized arthralgias or myalgias, back or neck pain, or night sweats. The review of systems is otherwise negative other than for that already noted above, and at least 10 systems have been reviewed. Physical Exam Physical Exam: The patient is awake, alert and oriented 3, well developed and well nourished, normocephalic and atraumatic, lying in bed and in no acute distress. HEENT--PERRL, EOMI, mucous membranes and oropharynx normal. Neck--supple. No JVD. No bruits. Thyroid normal, trachea midline, no adenopathy. Heart--normal S1 and S2. No murmurs, rubs or gallops. Lungs--clear bilaterally, no respiratory distress, no accessory muscle use. Abdomen--normal bowel sounds and soft. Nontender. Nondistended. Extremities--mild erythema and warmth, right greater than left Dermatologic--see above Neurologic--cranial nerves II through XII grossly intact. Rheumatologic--normal range of motion. Psychiatric--normal affect. Results & Data Results & Data ([facility]) Vital Signs (Past 12 Hours) Vital Signs Temp Pulse Pulse Resp BP BP Pulse Ox 08/18/20 22:13 98.4 F 86 18 111/76 98 08/18/20 21:50 72 17 94 08/18/20 21:45 72 17 94 08/18/20 21:31 75 22 97 08/18/20 21:30 72 13 101/65 96 08/18/20 21:15 75 27 H 97 08/18/20 21:01 75 20 100 08/18/20 21:00 75 22 97/61 L 99 08/18/20 20:45 79 20 100 08/18/20 20:43 81 19 107/60 96 08/18/20 20:30 72 21 99/67 L 97 08/18/20 20:15 74 14 94 08/18/20 20:01 75 16 97 08/18/20 20:00 75 20 110/64 96 08/18/20 19:45 79 21 95 08/18/20 19:43 18 98 08/18/20 19:31 75 14 97 08/18/20 19:30 75 17 101/68 95 08/18/20 19:15 75 20 90 08/18/20 19:02 73 18 96 08/18/20 19:00 76 18 103/64 94 08/18/20 17:04 96.8 F L 76 18 92/57 L 99 Laboratory Results Laboratory Results WBC 1.46 K/uL (4.8-10.8) L 08/18/20 18:54 RBC 3.67 M/uL (4.2-5.4) L 08/18/20 18:54 Hgb 10.4 g/dL (12.0-16.0) L 08/18/20 18:54 Hct 31.6 % (37-47) L 08/18/20 18:54 MCV 86.1 fL (80-100) 08/18/20 18:54 MCH 28.3 pg (25-34) 08/18/20 18:54 MCHC 32.9 g/dL (32-36) 08/18/20 18:54 RDW Std Deviation 47.3 fL (36.4-46.3) H 08/18/20 18:54 RDW Coeff of Natali 15.4 % (11.5-14.5) H 08/18/20 18:54 Plt Count 105 K/uL (130-400) L 08/18/20 18:54 MPV 10.8 fL (7.4-10.4) H 08/18/20 18:54 Immature Gran % (Auto) 0.7 % 08/18/20 18:54 Neut % (Auto) 30.8 % 08/18/20 18:54 Lymph % (Auto) 52.1 % 08/18/20 18:54 [place] % (Auto) 7.5 % 08/18/20 18:54 Eos % (Auto) 8.9 % 08/18/20 18:54 Baso % (Auto) 0.0 % 08/18/20 18:54 Neut # (Auto) 0.45 K/uL (1.4-6.5) L* 08/18/20 18:54 Lymph # (Auto) 0.76 K/uL (1.2-3.4) L 08/18/20 18:54 [place] # (Auto) 0.11 K/uL (0.11-0.59) 08/18/20 18:54 Eos # (Auto) 0.13 K/uL (0-0.5) 08/18/20 18:54 Baso # (Auto) 0.00 K/uL (0-0.2) 08/18/20 18:54 Immature Gran # (Auto) 0.01 K/uL (0.00-0.02) 08/18/20 18:54 PT 10.4 Seconds (9.0-12.0) 08/18/20 18:54 INR 1.0 (0.9-1.1) 08/18/20 18:54 APTT 31.4 Seconds (21.0-31.0) H 08/18/20 18:54 PTT Ratio 1.2 08/18/20 18:54 Sodium 140 mmol/L (136-145) 08/18/20 18:54 Potassium 3.6 mmol/L (3.5-5.1) 08/18/20 18:54 Chloride 107 mmol/L (98-107) 08/18/20 18:54 Carbon Dioxide 25 mmol/L (21-32) 08/18/20 18:54 Anion Gap 9.0 (3-11) 08/18/20 18:54 BUN 7 mg/dl (7-18) 08/18/20 18:54 Creatinine 0.64 mg/dl (0.6-1.2) 08/18/20 18:54 Est Cr Clr Drug Dosing 97.0 ml/min 08/18/20 18:54 Est GFR ( Amer) 113.2 08/18/20 18:54 Est GFR (Non-Af Amer) 97.7 08/18/20 18:54 BUN/Creatinine Ratio 10.2 (10-20) 08/18/20 18:54 Glucose 78 mg/dl (70-99) 08/18/20 18:54 POC Glucose 121 mg/dl (70-99) H 08/18/20 22:51 Lactate 1.9 mmol/L (0.4-2.0) 08/18/20 18:54 Calcium 8.9 mg/dl (8.5-10.1) 08/18/20 18:54 Magnesium 1.9 mg/dl (1.8-2.4) 08/18/20 18:54 Total Bilirubin 0.4 mg/dl (0.2-1) 08/18/20 18:54 AST 30 U/L (15-37) 08/18/20 18:54 ALT 69 U/L (12-78) 08/18/20 18:54 Alkaline Phosphatase 122 U/L (45-117) H 08/18/20 18:54 Troponin I < 0.015 ng/ml (0-0.045) 08/18/20 18:54 NT-Pro-B Natriuret Pep 510 pg/ml (0-900) 08/18/20 18:54 Total Protein 6.8 gm/dl (6.4-8.2) 08/18/20 18:54 Albumin 3.5 gm/dl (3.4-5.0) 08/18/20 18:54 Globulin 3.3 gm/dl (2.5-4.0) 08/18/20 18:54 Albumin/Globulin Ratio 1.1 (0.9-2) 08/18/20 18:54 Procalcitonin < 0.05 ng/ml (0-0.5) 08/18/20 18:54 COVID-19 Eval Order CovFluRsv at [facility] 08/18/20 19:47 SARS-CoV-2 (PCR) NEGATIVE (Negative) 08/18/20 19:47 Influenza Type A (PCR) Negative (Neg) 08/18/20 19:47 Influenza Type B (PCR) Negative (Neg) 08/18/20 19:47 RSV (RT-PCR) Negative (Neg) 08/18/20 19:47 Impressions Chest X-Ray 08/18/20 18:24 XR chest 1V portable HISTORY: 60 years-old Female SEPSIS acute sepsis COMPARISON: Chest radiograph 07/13/2020 TECHNIQUE: Portable AP view the chest FINDINGS: Chronic left hemidiaphragmatic elevation. Cardiac silhouette is enlarged. Stable positioning of the left subclavian Kzcinv-n-Liga catheter. Median sternotomy with surgical clips again noted projecting over the mediastinum. No pneumothorax, large pleural effusion or overt pulmonary edema. No airspace consolidation typical for pneumonia. Bones appear grossly intact. IMPRESSION: Chronic findings as above without acute process. ACT 112: Negative or not required by law. The above report was generated using voice recognition software. It may contain grammatical, syntax or spelling errors. Electronically signed by: Blue Rod M.D. 08/18/2020 7:16 PM Code Status & VTE Plan Code Status Full code VTE Prophylaxis Plan VTE Prophylaxis will be ordered: Yes PG Care Time/CCT Total # of Minutes Spent Total Time Spent with Patient: Total time spent is greater than 50% in coordination of care (as documented) at patient's floor/unit and/or counseling patient: Coding Level of Care Code 88865 Initial Inpt Care Lvl 3 Diagnoses Neutropenia associated with infection D70.3 Cellulitis of leg, right L03.115 Pancreatic cancer C25.9 Superior mesenteric vein thrombosis K55.069 Restless legs syndrome G25.81 Depression with anxiety F41.8 Diabetes E11.9 Diabetes mellitus type: type 2 Diabetes mellitus usp insulin use: without ocean transportation intermediary use Diabetes mellitus complication status: without complication Hyperlipidemia E78.5 Hyperlipidemia type: unspecified (1) Diabetes Diabetes mellitus type: type 2 Diabetes mellitus ocean transportation intermediary insulin use: without usp use Diabetes mellitus complication status: without complication Qualified Code(s): E11.9 - Type 2 diabetes mellitus without complications (2) Hyperlipidemia Hyperlipidemia type: unspecified Qualified Code(s): E78.5 - Hyperlipidemia, unspecified
[2020-08-19] MEDS: PIPERACILLIN/TAZOBACTAM 3.375 GM in DEXTROSE 5% 100 ML IV SCH ×2 (04:32→12:05)
[2020-08-19] MEDS: VANCOMYCIN HCL 1,000 MG in SODIUM CHLORIDE 0.9% 250 ML IV SCH ×3 (04:32→20:59)
[2020-08-19 06:24] LABS: Hematocrit (blood only) 27.6 % (37-47); Mean Corpuscular Hgb Conc 32.6 g/dL (32-36); Mean Corpuscular Volume 85.7 fL (80-100); RDW Coefficient of Variation 15.4 % (11.5-14.5); RDW Standard Deviation 47.4 fL (36.4-46.3); Red Blood Count 3.22 M/uL (4.2-5.4); White Blood Count 1.42 K/uL (4.8-10.8)
[2020-08-19 06:41] LABS: Appearance Urine Clear (Clear); Bilirubin Urine Negative (Negative); Blood Urine Negative (Negative); Color Urine Yellow; Glucose Urine UA Negative (Negative); Ketones Urine Negative (Negative); Leukocyte Esterase Urine Negative (Negative); Nitrite Urine Negative (Negative); Protein Urine Negative (Negative); Specific Gravity Urine 1.016 (1.000-1.030); Urobilinogen Urine Negative (Negative); pH Urine 6.5 (4.5-7.5)
[2020-08-19 06:46] LABS: Partial Thromboplastin Time 27.1 Seconds (21.0-31.0); Prothrombin Time 10.6 Seconds (9.0-12.0)
[2020-08-19 06:53] LABS: Albumin Level 2.7 gm/dl (3.4-5.0); BUN Creatinine Ratio 10.5 (10-20); Calcium 8.1 mg/dl (8.5-10.1); Creatinine Clr Calc Pharmacy 117.8 ml/min; Est GFR (African American) 120.5; Est GFR (Non-African American) 103.9; Magnesium 1.9 mg/dl (1.8-2.4); Potassium 3.5 mmol/L (3.5-5.1)
[2020-08-19 06:57] LABS: Albumin Globulin Ratio 1.1 (0.9-2); Bilirubin,Total 0.3 mg/dl (0.2-1); Globulin 2.5 gm/dl (2.5-4.0); Total Protein 5.2 gm/dl (6.4-8.2)
[2020-08-19 07:01] LABS: Mean Platelet Volume 11.1 fL (7.4-10.4); Platelet Count 92 K/uL (130-400)
[2020-08-19 07:02] LABS: Eosinophils # (auto) 0.12 K/uL (0-0.5); Eosinophils % (auto) 8.5 %; Immature Granulocytes # (auto) 0.02 K/uL (0.00-0.02); Immature Granulocytes % (auto) 1.4 %; Lymphocytes # (auto) 0.82 K/uL (1.2-3.4); Lymphocytes % (auto) 57.7 %; Microcytosis Present; Monocytes # (auto) 0.13 K/uL (0.11-0.59); Monocytes % (auto) 9.2 %; Neutrophils # (auto) 0.33 K/uL (1.4-6.5); Neutrophils % (auto) 23.2 %; Platelet Estimate Decreased (Normal); Polychromasia 1+
[2020-08-19] MEDS: CHECK fentaNYL PATCH PLACEMENT SCH ×3 (08:35→23:26)
[2020-08-19] MEDS: ENOXAPARIN 150 MG/ML SYR SQ SCH (08:36)
[2020-08-19] MEDS: INSULIN ASPART 100 UNITS/ML 3 ML PEN SC SCH ×4 (08:37→22:06)
[2020-08-19] MEDS: HEPARIN 100 UNIT/ML 5ML FLUSH FLUSH PRN ×3 (08:37→23:23)
[2020-08-19] MEDS: ATORVASTATIN 40 MG TAB PO SCH (08:38)
[2020-08-19] MEDS: POLYETHYLENE (MIRALAX) 17 GM PACK PO SCH ×2 (08:38→18:42)
[2020-08-19] MEDS: ADVANCED PROBIOTIC 1250 MG CAPSULE PO SCH (08:39)
[2020-08-19] MEDS: PANTOprazole 40 MG TAB PO SCH (08:39)
[2020-08-19] MEDS: MULTIVITAMIN TAB PO SCH (08:39)
[2020-08-19] MEDS: GABAPENTIN 800 MG TAB PO SCH ×3 (08:39→21:02)
[2020-08-19] MEDS: METHADONE HCL 5 MG TAB PO SCH ×2 (08:45→21:02)
[2020-08-19] MEDS: fentaNYL 25 MCG/HR TDSY TD SCH (08:45)
[2020-08-19] MEDS: fentaNYL 50 MCG/HR TDSY TD SCH (08:45)
[2020-08-19] MEDS ORDERED: VANCOMYCIN HCL 1,000 MG in SODIUM CHLORIDE 0.9% 250 ML IV SCH (09:00)
[2020-08-19] MEDS ORDERED: ENOXAPARIN 150 MG/ML SYR SQ SCH (09:00)
--- NOTE | 2020-08-19 09:00 | Electrocardiogram Report ---
Test Reason : Blood Pressure : / mmHG Vent. Rate : 075 BPM Atrial Rate : 075 BPM P-R Int : 096 ms QRS Dur : 084 ms QT Int : 386 ms P-R-T Axes : 007 015 014 degrees QTc Int : 431 ms Poor data quality, interpretation may be adversely affected Sinus rhythm Normal ECG When compared with ECG of 13-JUL-2020 17:29, No significant change was found Confirmed by Bobby Ramos ([id number]) on 08/19/2020 9:00:00 AM Referred By: REFERRED SELF Confirmed By:Bobby Ramos
[2020-08-19 10:55] LABS: Estimated Average Glucose 123 mg/dl; Hemoglobin A1C 5.9 % (4.5-5.6)
--- NOTE | 2020-08-19 11:58 | Pharmacy Report ---
Pharmacy Abx Dose Short Note - Date of Service August 19, 2020 - Assessment & Plan Assessment 60 year old F receiving VANCOMYCIN + ZOSYN for treatment of R lower extremity cellulitis in the setting of neutropenia Patient had been taking Keflex for several days w/o clinical improvement Patient had presented to ED c/o fever (although afebrile since admission) ANC 330 BLCXs pending Plan Vancomycin * 1500mg load x 1 given in ED, then maint dose of 1000mg (~12.3mg/kg) IV Q 8 hrs started this AM * Patient does appear to be a candidate for AUC dosing and the above regimen will likely produce AUC ~560s and trough ~19 * Goal AUC/BERNA 400-600 and / or trough 10-20mcg/mL * Trough level has been ordered w/ 3rd maint dose Pharmacy will continue to follow and will adjust dose/frequency as necessary. Thank you.
[2020-08-19] MEDS: ACETAMINOPHEN 500 MG TAB PO PRN (12:04)
[2020-08-19] MEDS: SENNA 8.6 MG TAB PO SCH (12:04)
[2020-08-19] MEDS: HYDROmorphone INJ 1 MG/ML SYRINGE IV PRN ×2 (13:33→17:04)
[2020-08-19] MEDS ORDERED: VANCOMYCIN TROUGH ONE (19:30)
--- NOTE | 2020-08-19 20:46 | Pharmacy Report ---
Pharmacy Abx Dose Short Note - Date of Service August 19, 2020 - Assessment & Plan Assessment 60 year old F receiving IV Vancomycin and Zosyn for treatment of RLE cellulitis, neutropenia Day # 2 of antimicrobial therapy. Plan Vancomycin * Trough level of 15.3 mcg/mL (appropriately drawn) is therapeutic. This is an early level drawn prior to 3rd dose and may not be reflective of Vancomycin at steady state. Unsure if Css trough will be higher, so will recheck tomorrow. * Continue dose of 1000 mg IV every 8 hours * Goal trough level for cellulitis : ~15 mcg/mL * Trough or random level ordered for: 08/20/20 @ 1130 to make sure Vancomycin stays within therapeutic range Pharmacy will continue to follow and will adjust dose/frequency as necessary. Thank you.
[2020-08-19] MEDS: busPIRone 15 MG TAB PO SCH (21:02)
[2020-08-19] MEDS: DOCUSATE SODIUM 100 MG CAP PO SCH (21:02)
[2020-08-19] MEDS: LORazepam 1 MG TAB PO SCH (21:02)
--- NOTE | 2020-08-19 21:17 | CT Scan Report ---
CT SCAN OF THE BRAIN WITHOUT IV CONTRAST CLINICAL HISTORY: Metastatic survey. Pancreatic cancer. COMPARISON STUDY: CT of the brain dated 07/13/2020. TECHNIQUE: Unenhanced axial CT scan of the brain is performed from the vertex to the skull base. A d ose lowering technique was utilized adhering to the principles of ALARA. CT DOSE: 537.48 mGy.cm FINDINGS: Brain parenchyma: The brain parenchyma is normal in appearance. There is no hemorrhage, mass effect, or evidence of acute territorial ischemia by CT criteria. Ersnt-white matter differentiation is preser ange. No extra-axial fluid collection is seen. Ventricles, sulci, cisterns: Normal in configuration. Intracranial vasculature: The visualized intracranial vasculature at the skull base is normal in appe arance. Calvarium: Unremarkable. Sinuses and mastoids: The visualized paranasal sinuses are clear. The mastoid air cells are well pneu matized. Orbits: The bony orbits are grossly intact. IMPRESSION: There is no hemorrhage, mass effect, or evidence of acute territorial ischemia by CT jonah churchill. ACT 112: Negative or not required by law. Electronically signed by: Ishan Holt M.D. 08/19/2020 9:16 PM
--- NOTE | 2020-08-19 21:30 | Hospitalist Progress Note ---
Date of Service August 19, 2020 Assessment & Plan (1) Cellulitis of leg, right: near full resolution. stop zosyn. cont vanco 1 more day, then can likely transition back to oral abx. no evidence of sepsis or bacteremia. (2) Chronic abdominal pain: 2nd to pancreatic ca, SMV thrombosis, SMA thrombosis, etc. on complex regimen of pain meds - combo fentanyl patch, methadone and PO dilaudid. add IV dilaudid prn. sees Dr Humphrey from palliative care -- will consult her for assistance with med adjustments. consider repeat imaging of abd/pelvis to ensure no new pathology contributing to pain. check lipase in am. no symptoms/signs of pancreatic exocrine deficiency. (3) Neutropenia associated with infection: ANC 330 today. no fevers. RLE cellulitis largely resolved. blood cx's neg. repeat CBC in am. I spoke with Dr Sacha Lara this evening -- at this time he recommends against CSF therapy given her clinical stability/improvement in the RLE cellulitis. I thoroughly examined pt's PORT with the IV team (and with dressing off) -- no signs of port infection/cellulitis. (4) Pancreatic cancer: Continue fentanyl transdermal 75 mcg patch Continue hydromorphone 4 mg p.o. routinely every 4 hours as per outpatient schedule while awake Methadone 2.5 mg p.o. a.m. and at bedtime Continue other supportive medications: Topiramate, promethazine, prochlorperazine. consulting Dr Humphrey from palliative for pain med adjustment as above care d/w Dr Lara by phone this evening consider repeat imaging of abd/pelvis obtaining CT head due to recent memory/cognitive issues to r/o mets s/p chemotherapy, 3rd round, about 1 week ago expect chemo-induced pancytopenia tristan in about 2-3 days (5) Superior mesenteric vein thrombosis: Continue enoxaparin 140 mg subcu every morning (6) Superior mesenteric artery thrombosis: Cont lovenox daily therapeutic (7) Restless legs syndrome: Continue topiramate Check Fe levels in am - replace as needed Consider mirapex since RLS symptoms are severe (8) Depression with anxiety: Both are severe On very large dose of buspar at bedtime for anxiety/sleep She would benefit from antidepressant therapy -- will ask psychiatry to see for assistance with this Ativan HS and prn (9) Diabetes: Hold Metformin. Patient Accu-Cheks before meals and at bedtime a1c <6% (10) Hyperlipidemia: Continue atorvastatin LFTs wnl (11) Antineoplastic chemotherapy induced pancytopenia: CBC in am H/H and platelets acceptable at this time discussed leukopenia/neutropenia with Dr Lara by phone holding off on CSF at this time no fevers blood cx's neg check b12/folate to be complete (12) Depression: as above (13) Iron deficiency anemia: check FE studies am (14) Hypertension: on no specific Rx for such, and BPS are actually low or low-normal (15) Anxiety: as above (16) Memory difficulty: check CT head, r/o mets her polypharmacy of pain meds, gabapentin, etc likely causing some side effects and cognitive issues psych consult palliative consult (17) DVT prophylaxis: lovenox therapeutic daily extensive discussion with sister by phone - she was on speaker phone during my bedside visit Dr Lara updated by phone total time today - complex care coordination, reviewing records, etc -- 65 minutes Admission and Anticipated Discharge Date Admission Date: August 18, 2020 Subjective patient reports her RLE cellulitis is markedly improved today -- "it's pretty much back to normal." minimal erythema. her main complaints are the following - 1. depression - severe - present for "long time". She mentions that it worsened at the time of her cancer diagnosis, but that it was present even well before her mother in the fall of 2019. She was crying most of my 25+ minute bedside visit. She states she just linked with a therapist for counseling. She would be open to talking with our psychologist here and also would be open to taking dedicated antidepressant medication for it. 2. abdominal pain despite fentanyl patch and methadone/dilaudid. Pain is central and radiates to back. Just occasional nausea. Pain is present most times of the day. Sees Dr Humphrey from palliative for med management. 3. anxiety - severe; takes ativan prn 4. confusional state - some thinking/memory difficulties of late, getting worse with time. Couldn't recall if she had had dedicated head imaging over last few months. 5. severe restless legs - bothers her throughout the day but much worse at night-time. Review of Systems Constitutional: + fatigue; no fever Ear, Nose, Mouth, Throat: no mouth lesions Respiratory: no cough and no dyspnea Cardiovascular: no chest pain Gastrointestinal: no diarrhea/loose stools Musculoskeletal: + back pain Integumentary: port mildly irritated - "there was infection a few months ago near the port" Physical Exam Constitutional: + acute distress and average body habitus; no altered mental status (Oriented, but difficulty recalling specific details of health history ) ENMT: external ear and nose normal, oropharynx normal (No thrush or mucositis ) Respiratory: normal respiratory effort, lungs clear to auscultation Cardiovascular: Rate/Rhythm: regular rate and regular rhythm Heart Sounds: normal S1 and normal S2; no murmur Vessels: posterior tibial pulses present and dorsalis pedis pulses present; no JVD Extremities: + vascular access device (L chest; IV team removed dressing; medial aspect w/ scab, no cellulitis ); no edema Skin: no rashes, warm and dry + pallor no evidence of cellulitis RLE Psychiatric: Orientation: alert Affect: + depressed affect and + tearful affect Results & Data Results & Data ([facility]) Vital Signs (Past 12 Hours) Vital Signs Temp Pulse Resp BP Pulse Ox 08/19/20 14:23 37.1 C 78 16 122/74 98 Laboratory Results Laboratory Results - last 24 hr 08/18/20 08/19/20 08/19/20 22:51 05:58 05:58 WBC 1.42 L RBC 3.22 L Hgb 9.0 L Hct 27.6 L MCV 85.7 MCH 28.0 MCHC 32.6 RDW Std Deviation 47.4 H RDW Coeff of Natali 15.4 H Plt Count 92 L MPV 11.1 H Immature Gran % (Auto) 1.4 Neut % (Auto) 23.2 Lymph % (Auto) 57.7 [place] % (Auto) 9.2 Eos % (Auto) 8.5 Baso % (Auto) 0.0 Neut # (Auto) 0.33 L* Lymph # (Auto) 0.82 L [place] # (Auto) 0.13 Eos # (Auto) 0.12 Baso # (Auto) 0.00 Immature Gran # (Auto) 0.02 Platelet Estimate Decreased L Polychromasia 1+ Microcytosis Present PT 10.6 INR 1.0 APTT 27.1 PTT Ratio 1.0 Sodium Potassium Chloride Carbon Dioxide Anion Gap BUN Creatinine Est Cr Clr Drug Dosing Est GFR ( Amer) Est GFR (Non-Af Amer) BUN/Creatinine Ratio Glucose POC Glucose 121 H Estimat Average Glucose Hemoglobin A1c Calcium Magnesium Total Bilirubin AST ALT Alkaline Phosphatase Total Protein Albumin Globulin Albumin/Globulin Ratio Urine Color Urine Appearance Urine pH Ur Specific [place] Urine Protein Urine Glucose (UA) Urine Ketones Urine Blood Urine Nitrite Urine Bilirubin Urine Urobilinogen Ur Leukocyte Esterase Vancomycin Trough 08/19/20 08/19/20 08/19/20 05:58 05:58 08:11 WBC RBC Hgb Hct MCV MCH MCHC RDW Std Deviation RDW Coeff of Natali Plt Count MPV Immature Gran % (Auto) Neut % (Auto) Lymph % (Auto) [place] % (Auto) Eos % (Auto) Baso % (Auto) Neut # (Auto) Lymph # (Auto) [place] # (Auto) Eos # (Auto) Baso # (Auto) Immature Gran # (Auto) Platelet Estimate Polychromasia Microcytosis PT INR APTT PTT Ratio Sodium 143 Potassium 3.5 Chloride 113 H Carbon Dioxide 24 Anion Gap 7.0 BUN 6 L Creatinine 0.53 L Est Cr Clr Drug Dosing 117.8 Est GFR ( Amer) 120.5 Est GFR (Non-Af Amer) 103.9 BUN/Creatinine Ratio 10.5 Glucose 101 H POC Glucose 124 H Estimat Average Glucose 123 Hemoglobin A1c 5.9 H Calcium 8.1 L Magnesium 1.9 Total Bilirubin 0.3 AST 20 ALT 46 Alkaline Phosphatase 90 Total Protein 5.2 L D Albumin 2.7 L Globulin 2.5 Albumin/Globulin Ratio 1.1 Urine Color Urine Appearance Urine pH Ur Specific [place] Urine Protein Urine Glucose (UA) Urine Ketones Urine Blood Urine Nitrite Urine Bilirubin Urine Urobilinogen Ur Leukocyte Esterase Vancomycin Trough 08/19/20 08/19/20 08/19/20 12:05 16:38 19:50 WBC RBC Hgb Hct MCV MCH MCHC RDW Std Deviation RDW Coeff of Natali Plt Count MPV Immature Gran % (Auto) Neut % (Auto) Lymph % (Auto) [place] % (Auto) Eos % (Auto) Baso % (Auto) Neut # (Auto) Lymph # (Auto) [place] # (Auto) Eos # (Auto) Baso # (Auto) Immature Gran # (Auto) Platelet Estimate Polychromasia Microcytosis PT INR APTT PTT Ratio Sodium Potassium Chloride Carbon Dioxide Anion Gap BUN Creatinine Est Cr Clr Drug Dosing Est GFR ( Amer) Est GFR (Non-Af Amer) BUN/Creatinine Ratio Glucose POC Glucose 139 H 127 H Estimat Average Glucose Hemoglobin A1c Calcium Magnesium Total Bilirubin AST ALT Alkaline Phosphatase Total Protein Albumin Globulin Albumin/Globulin Ratio Urine Color Urine Appearance Urine pH Ur Specific [place] Urine Protein Urine Glucose (UA) Urine Ketones Urine Blood Urine Nitrite Urine Bilirubin Urine Urobilinogen Ur Leukocyte Esterase Vancomycin Trough 15.3 08/19/20 08/19/20 20:36 Unknown WBC RBC Hgb Hct MCV MCH MCHC RDW Std Deviation RDW Coeff of Natali Plt Count MPV Immature Gran % (Auto) Neut % (Auto) Lymph % (Auto) [place] % (Auto) Eos % (Auto) Baso % (Auto) Neut # (Auto) Lymph # (Auto) [place] # (Auto) Eos # (Auto) Baso # (Auto) Immature Gran # (Auto) Platelet Estimate Polychromasia Microcytosis PT INR APTT PTT Ratio Sodium Potassium Chloride Carbon Dioxide Anion Gap BUN Creatinine Est Cr Clr Drug Dosing Est GFR ( Amer) Est GFR (Non-Af Amer) BUN/Creatinine Ratio Glucose POC Glucose 136 H Estimat Average Glucose Hemoglobin A1c Calcium Magnesium Total Bilirubin AST ALT Alkaline Phosphatase Total Protein Albumin Globulin Albumin/Globulin Ratio Urine Color Yellow Urine Appearance Clear Urine pH 6.5 Ur Specific [place] 1.016 Urine Protein Negative Urine Glucose (UA) Negative Urine Ketones Negative Urine Blood Negative Urine Nitrite Negative Urine Bilirubin Negative Urine Urobilinogen Negative Ur Leukocyte Esterase Negative Vancomycin Trough PG Care Time/CCT Total # of Minutes Spent Total Time Spent with Patient: Total time spent is greater than 50% in coordination of care (as documented) at patient's floor/unit and/or counseling patient: Prolonged Care Time Prolonged Care Time: Yes Total Prolonged Care Time: 65 Coding Level of Care Code 99438 Subseq Hosp Care Lvl 3 (25 - SIGNIFICANT, SEPARATELY IDENTIFIABLE ) Diagnoses Cellulitis of leg, right L03.115 Chronic abdominal pain R10.9; G89.29 Neutropenia associated with infection D70.3 Pancreatic cancer C25.9 Superior mesenteric vein thrombosis K55.069 Superior mesenteric artery thrombosis K55.069 Restless legs syndrome G25.81 Depression with anxiety F41.8 Diabetes E11.9 Diabetes mellitus complication status: without complication Diabetes mellitus buttermaker helper insulin use: without jail use Diabetes mellitus type: type 2 Hyperlipidemia E78.5 Hyperlipidemia type: unspecified Antineoplastic chemotherapy induced pancytopenia D61.810; T45.1X5A Depression F32.9 Iron deficiency anemia D50.9 Hypertension I10 Hypertension type: essential hypertension Anxiety F41.9 Memory difficulty R41.3 DVT prophylaxis Z29.9 Additional Codes Prolonged Care Time - Prolonged Care Time: Yes ([id number]) Time Spent (min) 65 (1) Diabetes Diabetes mellitus complication status: without complication Diabetes mellitus jail insulin use: without jail use Diabetes mellitus type: type 2 Qualified Code(s): E11.9 - Type 2 diabetes mellitus without complications (2) Hyperlipidemia Hyperlipidemia type: unspecified Qualified Code(s): E78.5 - Hyperlipidemia, unspecified (3) Hypertension Hypertension type: essential hypertension Qualified Code(s): I10 - Essential (primary) hypertension
[2020-08-19] MEDS: HYDROmorphone HCL 2 MG TAB PO SCH (22:05)
[2020-08-20] MEDS: HYDROmorphone INJ 1 MG/ML SYRINGE IV PRN ×4 (01:10→17:58)
[2020-08-20] MEDS: VANCOMYCIN HCL 1,000 MG in SODIUM CHLORIDE 0.9% 250 ML IV SCH ×2 (03:47→12:28)
[2020-08-20] MEDS: HEPARIN 100 UNIT/ML 5ML FLUSH FLUSH PRN ×3 (03:47→18:03)
[2020-08-20 06:29] LABS: Hematocrit (blood only) 27.8 % (37-47); Hemoglobin 9.1 g/dL (12.0-16.0); Mean Corpuscular Hemoglobin 27.9 pg (25-34); Mean Corpuscular Hgb Conc 32.7 g/dL (32-36); Mean Corpuscular Volume 85.3 fL (80-100); RDW Coefficient of Variation 15.4 % (11.5-14.5); RDW Standard Deviation 45.4 fL (36.4-46.3); Red Blood Count 3.26 M/uL (4.2-5.4); White Blood Count 2.13 K/uL (4.8-10.8)
[2020-08-20 06:53] LABS: Mean Platelet Volume 11.1 fL (7.4-10.4); Platelet Count 83 K/uL (130-400)
[2020-08-20 07:11] LABS: Potassium 3.3 mmol/L (3.5-5.1)
[2020-08-20 07:14] LABS: BUN Creatinine Ratio 10.3 (10-20); Calcium 7.8 mg/dl (8.5-10.1); Creatinine Clr Calc Pharmacy 135.7 ml/min; Est GFR (African American) 126.2; Est GFR (Non-African American) 108.9
[2020-08-20 07:21] LABS: Ferritin 61.6 ng/ml (8-388)
[2020-08-20 07:34] LABS: Eosinophils % (auto) 4.7 %; Giant Platelets 1+; Immature Granulocytes # (auto) 0.04 K/uL (0.00-0.02); Immature Granulocytes % (auto) 1.9 %; Lymphocytes # (auto) 0.92 K/uL (1.2-3.4); Lymphocytes % (auto) 43.2 %; Monocytes # (auto) 0.22 K/uL (0.11-0.59); Monocytes % (auto) 10.3 %; Neutrophils # (auto) 0.85 K/uL (1.4-6.5); Neutrophils % (auto) 39.9 %
[2020-08-20 07:40] LABS: Folate (Folic Acid) > 20.00 ng/ml (>5.38); Vitamin B12 413 pg/ml (193-986)
[2020-08-20] MEDS: CHECK fentaNYL PATCH PLACEMENT SCH ×2 (09:08→15:39)
[2020-08-20] MEDS: HYDROmorphone HCL 2 MG TAB PO SCH ×2 (09:09→12:28)
[2020-08-20] MEDS: POLYETHYLENE (MIRALAX) 17 GM PACK PO SCH ×2 (09:10→16:48)
[2020-08-20] MEDS: ATORVASTATIN 40 MG TAB PO SCH (09:10)
[2020-08-20] MEDS: ENOXAPARIN 150 MG/ML SYR SQ SCH (09:11)
[2020-08-20] MEDS: ADVANCED PROBIOTIC 1250 MG CAPSULE PO SCH (09:12)
[2020-08-20] MEDS: GABAPENTIN 800 MG TAB PO SCH ×3 (09:12→21:14)
[2020-08-20] MEDS: PANTOprazole 40 MG TAB PO SCH (09:13)
[2020-08-20] MEDS: MULTIVITAMIN TAB PO SCH (09:13)
[2020-08-20] MEDS: METHADONE HCL 5 MG TAB PO SCH ×2 (09:13→21:14)
[2020-08-20] MEDS: INSULIN ASPART 100 UNITS/ML 3 ML PEN SC SCH ×4 (09:16→21:37)
[2020-08-20] MEDS ORDERED: POTASSIUM CHLORIDE CRTAB 20 MEQ TABCR PO STA (10:31)
[2020-08-20] MEDS: ACETAMINOPHEN 500 MG TAB PO PRN (11:13)
[2020-08-20] MEDS ORDERED: VANCOMYCIN TROUGH ONE (11:30)
--- NOTE | 2020-08-20 11:59 | Hospitalist Progress Note ---
Date of Service August 20, 2020 Assessment & Plan (1) Cellulitis of leg, right: resolved. if leg looks this good tomorrow will stop IV vanco and change to PO abx. no evidence of sepsis or bacteremia. (2) Chronic abdominal pain: 2nd to pancreatic ca, SMV thrombosis, SMA thrombosis, etc. on complex regimen of pain meds - combo fentanyl patch, methadone and PO dilaudid. cont IV dilaudid prn. sees Dr Humphrey from palliative care as outpatient and Dr Humphrey to increase her methadone today. appreciate her assistance. no symptoms/signs of pancreatic exocrine deficiency. lipase wnl. (3) Neutropenia associated with infection: ANC and WBC count both improved today. no fevers. RLE cellulitis largely resolved. blood cx's neg. repeat CBC in am. I spoke with Dr Sacha Lara yesterday-- G-CSF therapy not recommended. (4) Pancreatic cancer: Continue fentanyl transdermal 75 mcg patch Continue hydromorphone 4 mg p.o. routinely every 4 hours as per outpatient [facility]am [place] while awake Methadone 2.5 mg p.o. a.m. and at bedtime consulting Dr Humphrey from palliative for pain med adjustment as above care d/w Dr Lara by phone consider repeat imaging of abd/pelvis if pain worsens CT head w/o obvious mets s/p chemotherapy, 3rd round, about 1 week ago (5) Superior mesenteric vein thrombosis: Continue enoxaparin 140 mg subcu every morning (6) Superior mesenteric artery thrombosis: Cont lovenox daily therapeutic (7) Restless legs syndrome: Cont topamax Cont gabapentin Consider mirapex since RLS symptoms are severe Consider IV venofer for ferritin goal of >100 (8) Depression with anxiety: Both are severe On very large dose of buspar at bedtime for anxiety/sleep She would benefit from antidepressant therapy -- psych consult appreciated; they adjusted ativan, but deferring antidepressant Rx to outpatient psychiatry (9) Diabetes: Hold Metformin. Patient Accu-Cheks before meals and at bedtime a1c <6% (10) Hyperlipidemia: Continue atorvastatin LFTs wnl (11) Antineoplastic chemotherapy induced pancytopenia: CBC in am H/H and platelets acceptable at this time discussed leukopenia/neutropenia with Dr Lara by phone holding off on G-CSF at this time no fevers blood cx's neg b12/folate wnl (12) Depression: as above (13) Iron deficiency anemia: consider IV venofer (14) Hypertension: on no specific Rx for such, and BPS are actually low or low-normal (15) Anxiety: as above (16) Memory difficulty: CT head w/o mets / other pathology her polypharmacy may be causing some side effects and cognitive issues psych consult appreciated palliative consult appreciated (17) DVT prophylaxis: lovenox therapeutic daily extensive discussion with sister by phone yesterday Admission and Anticipated Discharge Date Admission Date: August 18, 2020 Subjective patient states she continues with abd pain but modestly improved from yesterday. she is using the IV dilaudid and is getting relief from such. during the visit the patient was tearful/crying and reported ongoing anxiety. restless leg symptoms also continue to be severe. she asks about "when I might go home." eating ok. no respiratory symptoms or dyspnea. right leg feels good and cellulitis has resolved. Review of Systems Constitutional: no fever and no chills Respiratory: no cough Cardiovascular: no chest pain Gastrointestinal: + abdominal pain; no nausea and no vomiting Physical Exam Constitutional: average body habitus; no acute distress and no altered mental status very tearful ENMT: external ear and nose normal, oropharynx normal (No thrush or mucositis ) Respiratory: normal respiratory effort, lungs clear to auscultation Cardiovascular: Rate/Rhythm: regular rate and regular rhythm Heart Sounds: normal S1 and normal S2; no murmur Vessels: posterior tibial pulses present and dorsalis pedis pulses present; no JVD Extremities: + vascular access device (L upper chest - clean ); no edema Skin: no rashes, warm and dry + pallor right leg - no cellulitis; fully resolved Psychiatric: Orientation: alert and oriented x 3 Affect: + depressed affect and + tearful affect Results & Data Results & Data ([facility]) Vital Signs (Past 12 Hours) Vital Signs Temp Pulse Resp BP Pulse Ox 08/20/20 07:10 37.1 C 69 16 108/66 94 Laboratory Results Laboratory Results - last 24 hr 08/19/20 08/19/20 08/19/20 12:05 16:38 19:50 WBC RBC Hgb Hct MCV MCH MCHC RDW Std Deviation RDW Coeff of Natali Plt Count MPV Immature Gran % (Auto) Neut % (Auto) Lymph % (Auto) [place] % (Auto) Eos % (Auto) Baso % (Auto) Neut # (Auto) Lymph # (Auto) [place] # (Auto) Eos # (Auto) Baso # (Auto) Immature Gran # (Auto) Giant Platelets Sodium Potassium Chloride Carbon Dioxide Anion Gap BUN Creatinine Est Cr Clr Drug Dosing Est GFR ( Amer) Est GFR (Non-Af Amer) BUN/Creatinine Ratio Glucose POC Glucose 139 H 127 H Calcium Iron Transferrin Transferrin % Sat Ferritin Lipase Vitamin B12 Folate Vancomycin Trough 15.3 08/19/20 08/20/20 08/20/20 20:36 05:48 05:48 WBC 2.13 L RBC 3.26 L Hgb 9.1 L Hct 27.8 L MCV 85.3 MCH 27.9 MCHC 32.7 RDW Std Deviation 45.4 RDW Coeff of Natali 15.4 H Plt Count 83 L MPV 11.1 H Immature Gran % (Auto) 1.9 Neut % (Auto) 39.9 Lymph % (Auto) 43.2 [place] % (Auto) 10.3 Eos % (Auto) 4.7 Baso % (Auto) 0.0 Neut # (Auto) 0.85 L* Lymph # (Auto) 0.92 L [place] # (Auto) 0.22 Eos # (Auto) 0.10 Baso # (Auto) 0.00 Immature Gran # (Auto) 0.04 H [place] Platelets 1+ Sodium 144 Potassium 3.3 L Chloride 114 H Carbon Dioxide 24 Anion Gap 6.0 BUN 5 L Creatinine 0.46 L Est Cr Clr Drug Dosing 135.7 Est GFR ( Amer) 126.2 Est GFR (Non-Af Amer) 108.9 BUN/Creatinine Ratio 10.3 Glucose 105 H POC Glucose 136 H Calcium 7.8 L Iron 33 L Transferrin 189 L Transferrin % Sat 12 L Ferritin 61.6 Lipase 44 L Vitamin B12 Folate Vancomycin Trough 08/20/20 08/20/20 08/20/20 06:10 07:59 11:30 WBC RBC Hgb Hct MCV MCH MCHC RDW Std Deviation RDW Coeff of Natali Plt Count MPV Immature Gran % (Auto) Neut % (Auto) Lymph % (Auto) [place] % (Auto) Eos % (Auto) Baso % (Auto) Neut # (Auto) Lymph # (Auto) [place] # (Auto) Eos # (Auto) Baso # (Auto) Immature Gran # (Auto) Giant Platelets Sodium Potassium Chloride Carbon Dioxide Anion Gap BUN Creatinine Est Cr Clr Drug Dosing Est GFR ( Amer) Est GFR (Non-Af Amer) BUN/Creatinine Ratio Glucose POC Glucose 121 H Calcium Iron Transferrin Transferrin % Sat Ferritin Lipase Vitamin B12 413 Folate > 20.00 Vancomycin Trough Pending PG Care Time/CCT Total # of Minutes Spent Total Time Spent with Patient: Total time spent is greater than 50% in coordination of care (as documented) at patient's floor/unit and/or counseling patient: Coding Level of Care Code 33419 Subseq Hosp Care Lvl 3 Diagnoses Cellulitis of leg, right L03.115 Chronic abdominal pain R10.9; G89.29 Neutropenia associated with infection D70.3 Pancreatic cancer C25.9 Superior mesenteric vein thrombosis K55.069 Superior mesenteric artery thrombosis K55.069 Restless legs syndrome G25.81 Depression with anxiety F41.8 Diabetes E11.9 Diabetes mellitus complication status: without complication Diabetes mellitus senior care insulin use: without senior care use Diabetes mellitus type: type 2 Hyperlipidemia E78.5 Hyperlipidemia type: unspecified Antineoplastic chemotherapy induced pancytopenia D61.810; T45.1X5A Depression F32.9 Iron deficiency anemia D50.9 Hypertension I10 Hypertension type: essential hypertension Anxiety F41.9 Memory difficulty R41.3 DVT prophylaxis Z29.9 (1) Diabetes Diabetes mellitus complication status: without complication Diabetes mellitus senior care insulin use: without senior care use Diabetes mellitus type: type 2 Qualified Code(s): E11.9 - Type 2 diabetes mellitus without complications (2) Hyperlipidemia Hyperlipidemia type: unspecified Qualified Code(s): E78.5 - Hyperlipidemia, unspecified (3) Hypertension Hypertension type: essential hypertension Qualified Code(s): I10 - Essential (primary) hypertension
--- NOTE | 2020-08-20 12:26 | Pharmacy Report ---
Pharmacy Abx Dose Progress Nt - Date of Service August 20, 2020 - Pharmacy Dosing Scope The patient is currently receiving the following antimicrobial agents per Pharmacy consult: Vancomycin 1,000 mg IV every 8 hours - Objective Vital Signs (Past 12hrs): Vital Signs Temp Pulse Resp BP Pulse Ox 08/20/20 12:09 36.6 C 76 18 129/77 98 08/20/20 07:10 37.1 C 69 16 108/66 94 Lab Results (24hrs): Laboratory Tests (24 Hours) 08/20/20 08/20/20 08/20/20 11:30 05:48 05:48 WBC 2.13 L Neut # (Auto) 0.85 L* Creatinine 0.46 L Est Cr Clr Drug Dosing 135.7 Vancomycin Trough 19.6 08/19/20 19:50 WBC Neut # (Auto) Creatinine Est Cr Clr Drug Dosing Vancomycin Trough 15.3 - Assessment & Plan Assessment 60 year old F receiving VANCOMYCIN for treatment of R lower extremity cellulitis in the setting of neutropenia 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 Will lengthen dosing interval to allow for additional vanco excretion. * Change to 1250 mg IV every 12 hours * Goal trough level for SST : 10 to 20 mcg/mL * Will consider checking a trough level in a few days if abx not de- escalated/changed to PO Pharmacy will continue to follow and will adjust dose/frequency as necessary. Thank you.
[2020-08-20] MEDS: SENNA 8.6 MG TAB PO SCH (12:30)
--- NOTE | 2020-08-20 13:25 | Palliative Care Consultation ---
Date of Consultation August 20, 2020 Assessment & Plan (1) Chronic abdominal pain: With pancreatic cancer. Will increase methadone to 5mg BID and monitor for efficacy and lethargy. We talked about both physical and emotional pain and the link between pain and mood. She is being seen by psychiatry for assistance with medications. (2) Anxiety: She talks about her worries for the future and her greatest worry is dying. The uncertainty is most difficult for her. She has family support and has had visits from friends. She had lived in [place] in the past and one of her greatest wishes is to be able to travel to [place] before she dies. She is taking routine lorazepam at bedtime with prn dosing during the day. (3) Palliative care encounter: As above, she has expressed fear of dying and desire to have aggressive treatment to live as long as possible. She (4) Pancreatic cancer: History of Present Illness Reason for Consultation: pain management Requesting Physician: Dr. Arriaga Attending Physician: Dhaval Arriaga History of Present Illness 62 yo lady diagnosed with pancreatic cancer about two months ago. She is currently receiving chemotherapy and is followed at [facility]. She recently completed her third treatment. She has had ongoing problems with sometimes vague epigastric abdominal pain which she describes as a band across the front of her abdomen. She did have a celiac plexus block which provided temporary relief but has been unable to have ablation as she is on anticoagulation for superior mesenteric vein thrombosis. She has been followed by outpatient palliative care for pain management. She is on fentanyl patch at 75mcg, low dose methadone twice daily and hydromorphone prn. She has been taking hydromorphone routinely every four hours while awake. She describes the pain as mild to moderate at the moment and had hydromorphone about an hour ago. She gets temporary relief with this. She is very tearful and anxious today. She tells me that she has had medication adjustments with her psychiatrist due to concern about serotonin syndrome and doesn't feel that she is coping well. Allergies Allergy/AdvReac Type Severity Reaction Status Date / Time latex Allergy Intermediate rash Verified 08/18/20 19:23 sulfamethoxazole Allergy Intermediate itching, Verified 08/18/20 19:23 chest tightness trimethoprim Allergy Intermediate itching, Verified 08/18/20 19:23 chest tightness adhesive Allergy Unknown ITCHY SKIN Verified 08/18/20 19:23 clindamycin AdvReac Severe Diarrhea Verified 08/18/20 19:23 doxycycline AdvReac Intermediate nausea and Verified 08/18/20 19:23 vomiting Home Medications Medication Instructions Recorded Confirmed Type multivitamin 1 tab PO QAM 10/26/18 08/18/20 History galcanezumab-gnlm 120 mg/mL 120 mg SQ MONTHLY 30 Days #1 ml 01/04/20 08/18/20 Rx subcutaneous pen injector gabapentin 800 mg tablet 800 mg PO TID #90 tab 04/10/20 08/18/20 Rx buspirone 30 mg PO HS 04/16/20 08/18/20 History pantoprazole 40 mg PO QAM 30 Days #30 tab 05/15/20 08/18/20 Rx acetaminophen [Tylenol Extra 1,000 mg PO DIRECTED PRN 06/12/20 08/18/20 History Strength] naloxone 4 mg/actuation nasal spray 4 mg INTRANASAL Q2M PRN #2 ea 06/24/2006/09 Rx rizatriptan 10 mg tablet 10 mg PO .COMPLEX PRN 90 Days #27 06/24/20 08/18/20 Rx tab metformin 1,000 mg PO HS #60 tab 07/12/20 08/18/20 Rx fentanyl 25 mcg/hr transdermal 1 patch TRANSDERMAL Q72H #10 ea 07/25/20 08/18/20 Rx patch ondansetron HCl 8 mg tablet 8 mg PO Q8H PRN 08/01/20 08/18/20 History prochlorperazine maleate 10 mg 10 mg PO Q6H PRN 08/01/20 08/18/20 History tablet hydromorphone 4 mg tablet 4 mg PO Q4H PRN #60 tab 08/09/20 08/18/20 Rx atorvastatin 40 mg PO QAM 08/18/20 08/18/20 History docusate sodium [Colace] 100 mg PO QPM 08/18/20 08/18/20 History enoxaparin 140 mg SUBCUT QAM 08/18/20 08/18/20 History ergocalciferol (vitamin D2) 1,250 mcg PO WK 08/18/20 08/18/20 History [Vitamin D2] fentanyl 50 mcg TRANSDERMAL Q72H 08/18/20 08/18/20 History lorazepam 0.5 mg PO Q6H PRN 08/18/20 08/18/20 History lorazepam 1 mg PO HS 08/18/20 08/18/20 History methadone 2.5 mg PO AMHS 08/18/20 08/18/20 History metoclopramide HCl 10 mg PO Q12H PRN 08/18/20 08/18/20 History polyethylene glycol 3350 [Miralax] 17 g PO BIDM 08/18/20 08/18/20 History promethazine 25 mg PO BID PRN 08/18/20 08/18/20 History sennosides 17.2 mg PO QDL 08/18/20 08/18/20 History tizanidine 4 mg PO Q6H PRN 08/18/20 08/18/20 History topiramate 100 mg PO QAM 08/18/20 08/18/20 History Patient History Medical History Abdominal pain Acute pancreatitis Anxiety Constipation Depression (09/09/12) Diabetes Headache History of uterine fibroid Hyperlipidemia Hypertension Intractable vomiting Migraine (09/09/12) Nausea & vomiting Pancreatic duct stricture Pancreatitis, acute Panic attack (09/09/12) PMB (postmenopausal bleeding) Thrombus Surgical History 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 Umanzor 07/10/2020 S/P surgical removal of pilonidal cyst Family History Sister Endometrial cancer Arthritis Celiac disease Hypertension Diabetes Mother Hypertension Congestive heart failure (CHF) Kidney failure Heart disease Father Parkinson disease Myocardial infarction Graves disease Skin cancer Denies family history of Ovarian cancer Prostate cancer Breast cancer Colorectal cancer Social History Smoking Status: Former smoker Tobacco Type: Cigarettes Age Started Using Tobacco: 21; Age Quit Using Tobacco: 58; packs per day: 1; Years Smoked: 37; Cigarettes Per Day: 2; Number of Years Since Quit: 1; Second Hand Exposure: No; Do You Dip or Chew Tobacco: No; Hx Alcohol Use: No Hx Substance Use: No Preferred Language: Icelandic Communication Ability: Effective Visual Impairment: No Limitations Hearing Ability: Normal 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 Beliefs That Will Affect Care: None marital status: Single Current Living Situation: Family Current Living Situation Comment: with sister current occupational status: disabled Other Information That Helps Us Care for You: No Feels Safe at Home: Yes Safety Concerns: Feels Safe At This Time Childhood Exposure to Second-Hand Smoke: No Dental Care, Regularly: No Physical Activity Frequency: Does not Exercise Seatbelt Use: always Sunscreen Use: Yes Assistive Devices: Glasses Review of Systems Review of Systems: [place] Symptom Assessment Scale Pain 2/3 Anxiety 2/3 Fatigue 1/3 Anorexia 2/3 Nausea 1/3 Drowsiness 0/3 Palliative Performance Score 50% Physical Exam Constitutional: no acute distress ENMT: Mouth: oral mucous membranes not dry Respiratory: normal respiratory effort; no labored breathing Cardiovascular: Extremities: no edema Gastrointestinal (Abdomen): epigastric tenderness Musculoskeletal: Extremities: + muscle atrophy Neurologic: awake; not confused Psychiatric: Orientation: alert and oriented x 3 Eye Contact: good eye contact Affect: + labile affect Mood: + anxious mood Results & Data ([facility]) Vital Signs (Past 12 Hours) Vital Signs Temp Pulse Resp BP Pulse Ox 08/20/20 12:09 97.9 F 76 18 129/77 98 08/20/20 07:10 98.8 F 69 16 108/66 94 PG Care Time/CCT Total # of Minutes Spent Total Time Spent with Patient: Total time spent is greater than 50% in coordination of care (as documented) at patient's floor/unit and/or counseling patient: Coding Level of Care Code 82730 Inpt Consult Level 3 Diagnoses Chronic abdominal pain R10.9; G89.29 Anxiety F41.9 Palliative care encounter Z51.5 Pancreatic cancer C25.9
[2020-08-20] MEDS: VANCOMYCIN HCL 1,250 MG in SODIUM CHLORIDE 0.9% 250 ML IV SCH (13:51)
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
[2020-08-20] MEDS: HYDROmorphone HCL 2 MG TAB PO PRN (16:47)
[2020-08-20] MEDS: DOCUSATE SODIUM 100 MG CAP PO SCH (21:10)
[2020-08-20] MEDS: busPIRone 15 MG TAB PO SCH (21:14)
[2020-08-20] MEDS: LORazepam 1 MG TAB PO SCH (21:14)
[2020-08-20] MEDS: ONDANSETRON 4 MG OD TAB PO PRN (22:15)
[2020-08-21] MEDS: CHECK fentaNYL PATCH PLACEMENT SCH ×4 (00:10→22:20)
[2020-08-21] MEDS: VANCOMYCIN HCL 1,250 MG in SODIUM CHLORIDE 0.9% 250 ML IV SCH ×2 (02:27→14:49)
[2020-08-21] MEDS: HEPARIN 100 UNIT/ML 5ML FLUSH FLUSH PRN ×4 (04:01→22:13)
[2020-08-21] MEDS: POLYETHYLENE (MIRALAX) 17 GM PACK PO SCH ×2 (09:27→17:07)
[2020-08-21] MEDS: GABAPENTIN 800 MG TAB PO SCH ×3 (09:30→20:54)
[2020-08-21] MEDS: ATORVASTATIN 40 MG TAB PO SCH (09:30)
[2020-08-21] MEDS: ENOXAPARIN 150 MG/ML SYR SQ SCH (09:31)
[2020-08-21] MEDS: ADVANCED PROBIOTIC 1250 MG CAPSULE PO SCH (09:31)
[2020-08-21] MEDS: MULTIVITAMIN TAB PO SCH (09:31)
[2020-08-21] MEDS: INSULIN ASPART 100 UNITS/ML 3 ML PEN SC SCH ×4 (09:39→21:57)
[2020-08-21] MEDS: METHADONE HCL 5 MG TAB PO SCH ×2 (09:47→20:55)
[2020-08-21] MEDS: TOPIRAMATE 50 MG TAB PO SCH ×2 (09:57→20:56)
[2020-08-21] MEDS: PANTOprazole 40 MG TAB PO SCH (10:36)
[2020-08-21] MEDS: HYDROmorphone HCL 2 MG TAB PO PRN ×2 (10:45→18:40)
[2020-08-21] MEDS: ACETAMINOPHEN 500 MG TAB PO PRN (11:09)
[2020-08-21] MEDS: SENNA 8.6 MG TAB PO SCH (12:54)
[2020-08-21 12:58] LABS: Hematocrit (blood only) 30.7 % (37-47); Hemoglobin 10.3 g/dL (12.0-16.0); Mean Corpuscular Hemoglobin 28.5 pg (25-34); Mean Corpuscular Hgb Conc 33.6 g/dL (32-36); Mean Corpuscular Volume 84.8 fL (80-100); Mean Platelet Volume 11.1 fL (7.4-10.4); Platelet Count 138 K/uL (130-400); RDW Coefficient of Variation 16.2 % (11.5-14.5); RDW Standard Deviation 47.5 fL (36.4-46.3); Red Blood Count 3.62 M/uL (4.2-5.4); White Blood Count 3.23 K/uL (4.8-10.8)
[2020-08-21 13:04] LABS: Basophils # (auto) 0.01 K/uL (0-0.2); Basophils % (auto) 0.3 %; Eosinophils # (auto) 0.05 K/uL (0-0.5); Eosinophils % (auto) 1.5 %; Immature Granulocytes # (auto) 0.04 K/uL (0.00-0.02); Immature Granulocytes % (auto) 1.2 %; Lymphocytes # (auto) 0.81 K/uL (1.2-3.4); Lymphocytes % (auto) 25.1 %; Monocytes # (auto) 0.24 K/uL (0.11-0.59); Monocytes % (auto) 7.4 %; Neutrophils # (auto) 2.08 K/uL (1.4-6.5); Neutrophils % (auto) 64.5 %
[2020-08-21 13:13] LABS: BUN Creatinine Ratio 7.8 (10-20); Calcium 8.2 mg/dl (8.5-10.1); Creatinine Clr Calc Pharmacy 135.7 ml/min; Est GFR (African American) 126.2; Est GFR (Non-African American) 108.9; Potassium 3.8 mmol/L (3.5-5.1)
--- NOTE | 2020-08-21 13:38 | Palliative Care Progress Note ---
Date of Service August 21, 2020 Assessment & Plan (1) Palliative care encounter: We reviewed code status as she had indicated that she would not want resuscitation during last hospitalization. She tells me that she is hopeful that she will get better from her cancer and would want to be resuscitated at this time. We talked about what her expectation would be for outcome of resuscitation. She indicates that she would want to live as long as possible and would be ok with intubation and vent support but would not want longwall headgate operator vent or trach/peg. (2) Chronic abdominal pain: Methadone increased to 5mg BID yesterday. Monitor with long half life. Continue fentanyl patch with prn hydromorphone. Palliative medicine will continue to follow as outpatient for pain management and support. (3) Pancreatic cancer: Admission and Anticipated Discharge Date Admission Date: August 18, 2020 Subjective Having a better day today. Feels better and less emotionally labile. Appetite is poor. She is trying to eat as she notices that her abdominal pain is less if she eats. She is on routine protonix. Review of Systems Review of Systems: [place] Symptom Assessment Scale Pain 1/3 Dyspnea 0/3 Anxiety 1/3 Nausea 1/3 Drowsiness 0/3 Palliative Performance Score 50% Physical Exam Constitutional: no acute distress Respiratory: normal respiratory effort; no labored breathing Cardiovascular: Extremities: no edema Gastrointestinal (Abdomen): epigastric tenderness Musculoskeletal: Extremities: + muscle atrophy Psychiatric: Orientation: alert and oriented x 3 Affect: euthymic affect (smiling and joking today) Results & Data ([facility]) Vital Signs (Past 12 Hours) Vital Signs Temp Pulse Resp BP Pulse Ox 08/21/20 07:22 99.7 F H 76 16 130/78 98 PG Care Time/CCT Total # of Minutes Spent Total Time Spent with Patient: Total time spent is greater than 50% in coordination of care (as documented) at patient's floor/unit and/or counseling patient: total time spent 35 minutes with more than 50% of time spent on code status, symptom management, patient support Coding Level of Care Code 04297 Subseq Hosp Care Lvl 3 Diagnoses Palliative care encounter Z51.5 Chronic abdominal pain R10.9; G89.29 Pancreatic cancer C25.9
[2020-08-21] MEDS: HYDROmorphone INJ 1 MG/ML SYRINGE IV PRN ×2 (14:19→22:10)
--- NOTE | 2020-08-21 16:35 | Hospitalist Progress Note ---
Date of Service August 21, 2020 Assessment & Plan (1) Cellulitis of leg, right: resolved. stop IV vanco. perhaps 3 days of PO augmentin starting in am (had been on keflex as outpatient prior to admission). (2) Chronic abdominal pain: 2nd to pancreatic ca, SMV thrombosis, SMA thrombosis, etc. on complex regimen of pain meds - combination of fentanyl patch, methadone and PO dilaudid. cont IV dilaudid prn. sees Dr Humphrey from palliative care as outpatient and Dr Humphrey increased her methadone this admission with improved pain. appreciate her assistance. no symptoms/signs of pancreatic exocrine deficiency. lipase wnl. (3) Neutropenia associated with infection: ANC and WBC count again both improved today. RLE cellulitis resolved. blood cx's neg. repeat CBC in am. low-grade fever (temp 37.6) early this am but no signs of any additional infectious process at this time. monitor carefully. (4) Pancreatic cancer: Continue fentanyl transdermal 75 mcg patch Continue hydromorphone 4 mg p.o. routinely every 4 hours as per outpatient schedule while awake Methadone 5 mg p.o. a.m. and at bedtime CT head w/o obvious mets s/p chemotherapy, 3rd round, about 1 week ago f/u with Dr Marco Burrows Heme/onc - next week as outpatient CBC am (5) Superior mesenteric vein thrombosis: Continue enoxaparin 140 mg subcu every morning (6) Superior mesenteric artery thrombosis: Cont lovenox daily therapeutic (7) Restless legs syndrome: Cont topamax Cont gabapentin Consider mirapex since RLS symptoms are severe Consider IV venofer for ferritin goal of >100 (8) Depression with anxiety: Both are severe On very large dose of buspar at bedtime for anxiety/sleep She would benefit from antidepressant therapy -- psych consult appreciated; they adjusted ativan, but deferring antidepressant Rx to outpatient psychiatry as she has been on various meds in the past, had possible serotonin syndrome at one point? 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: all cell lines improving H/H and platelets acceptable at this time blood cx's neg b12/folate wnl (12) Depression: as above (13) Iron deficiency anemia: consider IV venofer (14) Hypertension: on no specific Rx for such, and BPS are actually low or low-normal (15) Anxiety: as above (16) Memory difficulty: CT head w/o mets / other pathology her polypharmacy may be causing some side effects and cognitive issues psych consult appreciated palliative consult appreciated (17) DVT prophylaxis: lovenox therapeutic daily extensive discussion with sister by phone on Wednesday and updated her sister again today hopefully can d/c home tomorrow Admission and Anticipated Discharge Date Admission Date: August 18, 2020 Subjective patient overall doing better today still sleeping poorly but this is chronic issue she admits that yesterday she was very emotional and overwhelmed in general was tearful most of yesterday she had episode of vomiting last evening - she was quite upset emotionally then threw up in the midst of feeling anxious/emotional no vomiting since abd pain is improved to 6/10 from 10 no dyspnea no cp no infectious symptoms (sore throat, mouth sores, dysuria, diarrhea, cough, etc) hoping for d/c tomorrow Review of Systems Constitutional: + chills and + anorexia Respiratory: no cough, no dyspnea and no dyspnea on exertion Cardiovascular: no chest pain Gastrointestinal: as per Subjective / HPI; no abdominal pain Physical Exam Constitutional: average body habitus; no acute distress and no altered mental status ENMT: external ear and nose normal, oropharynx normal (No thrush or mucositis ) Respiratory: normal respiratory effort, lungs clear to auscultation Cardiovascular: Rate/Rhythm: regular rate and regular rhythm Heart Sounds: normal S1 and normal S2; no murmur Vessels: posterior tibial pulses present a nd dorsalis pedis pulses present; no JVD Extremities: + vascular access device (L upper chest - clean ); no edema Skin: no rashes, warm and dry cellulitis resolved right leg Psychiatric: Orientation: alert and oriented x 3 Affect: + depressed affect (but not as tearful today ) Results & Data Results & Data ([facility]) Vital Signs (Past 12 Hours) Vital Signs Temp Pulse Resp BP Pulse Ox 08/21/20 14:57 37.5 C 67 16 118/73 96 08/21/20 07:22 37.6 C H 76 16 130/78 98 Laboratory Results Laboratory Results - last 24 hr 08/20/20 08/20/20 08/21/20 17:10 20:40 08:24 WBC RBC Hgb Hct MCV MCH MCHC RDW Std Deviation RDW Coeff of Natali Plt Count MPV Immature Gran % (Auto) Neut % (Auto) Lymph % (Auto) [place] % (Auto) Eos % (Auto) Baso % (Auto) Neut # (Auto) Lymph # (Auto) [place] # (Auto) Eos # (Auto) Baso # (Auto) Immature Gran # (Auto) Sodium Potassium Chloride Carbon Dioxide Anion Gap BUN Creatinine Est Cr Clr Drug Dosing Est GFR ( Amer) Est GFR (Non-Af Amer) BUN/Creatinine Ratio Glucose POC Glucose 116 H 143 H 112 H Calcium 08/21/20 08/21/20 08/21/20 12:16 12:39 12:39 WBC 3.23 L RBC 3.62 L Hgb 10.3 L Hct 30.7 L MCV 84.8 MCH 28.5 MCHC 33.6 RDW Std Deviation 47.5 H RDW Coeff of Natali 16.2 H Plt Count 138 D MPV 11.1 H Immature Gran % (Auto) 1.2 Neut % (Auto) 64.5 Lymph % (Auto) 25.1 [place] % (Auto) 7.4 Eos % (Auto) 1.5 Baso % (Auto) 0.3 Neut # (Auto) 2.08 Lymph # (Auto) 0.81 L [place] # (Auto) 0.24 Eos # (Auto) 0.05 Baso # (Auto) 0.01 Immature Gran # (Auto) 0.04 H Sodium 141 Potassium 3.8 D Chloride 110 H Carbon Dioxide 26 Anion Gap 5.0 BUN 4 L Creatinine 0.46 L Est Cr Clr Drug Dosing 135.7 Est GFR ( Amer) 126.2 Est GFR (Non-Af Amer) 108.9 BUN/Creatinine Ratio 7.8 L Glucose 130 H POC Glucose 150 H Calcium 8.2 L blood cx's negative PG Care Time/CCT Total # of Minutes Spent Total Time Spent with Patient: Total time spent is greater than 50% in coordination of care (as documented) at patient's floor/unit and/or counseling patient: Coding Level of Care Code 52377 Subseq Hosp Care Lvl 2 Diagnoses Cellulitis of leg, right L03.115 Chronic abdominal pain R10.9; G89.29 Neutropenia associated with infection D70.3 Pancreatic cancer C25.9 Superior mesenteric vein thrombosis K55.069 Superior mesenteric artery thrombosis K55.069 Restless legs syndrome G25.81 Depression with anxiety F41.8 Diabetes E11.9 Diabetes mellitus complication status: without complication Diabetes mellitus senior living insulin use: without tank terminal gauger use Diabetes mellitus type: type 2 Hyperlipidemia E78.5 Hyperlipidemia type: unspecified Antineoplastic chemotherapy induced pancytopenia D61.810; T45.1X5A Depression F32.9 Iron deficiency anemia D50.9 Hypertension I10 Hypertension type: essential hypertension Anxiety F41.9 Memory difficulty R41.3 DVT prophylaxis Z29.9 (1) Diabetes Diabetes mellitus complication status: without complication Diabetes mellitus tank terminal gauger insulin use: without tank terminal gauger use Diabetes mellitus type: type 2 Qualified Code(s): E11.9 - Type 2 diabetes mellitus without complications (2) Hyperlipidemia Hyperlipidemia type: unspecified Qualified Code(s): E78.5 - Hyperlipidemia, unspecified (3) Hypertension Hypertension type: essential hypertension Qualified Code(s): I10 - Essential (primary) hypertension
[2020-08-21] MEDS: ONDANSETRON 4 MG OD TAB PO PRN (18:39)
[2020-08-21] MEDS: DOCUSATE SODIUM 100 MG CAP PO SCH (20:51)
[2020-08-21] MEDS: LORazepam 1 MG TAB PO SCH (20:55)
[2020-08-21] MEDS: busPIRone 15 MG TAB PO SCH (20:55)
[2020-08-22] MEDS ORDERED: VANCOMYCIN TROUGH ONE (01:30)
[2020-08-22] MEDS: ACETAMINOPHEN 500 MG TAB PO PRN (06:12)
[2020-08-22 07:15] LABS: Eosinophils # (auto) 0.09 K/uL (0-0.5); Eosinophils % (auto) 3.8 %; Hematocrit (blood only) 29.1 % (37-47); Hemoglobin 9.7 g/dL (12.0-16.0); Immature Granulocytes # (auto) 0.03 K/uL (0.00-0.02); Immature Granulocytes % (auto) 1.3 %; Lymphocytes # (auto) 0.81 K/uL (1.2-3.4); Lymphocytes % (auto) 33.8 %; Mean Corpuscular Hemoglobin 28.4 pg (25-34); Mean Corpuscular Hgb Conc 33.3 g/dL (32-36); Mean Corpuscular Volume 85.1 fL (80-100); Mean Platelet Volume 10.5 fL (7.4-10.4); Monocytes # (auto) 0.35 K/uL (0.11-0.59); Monocytes % (auto) 14.6 %; Neutrophils # (auto) 1.12 K/uL (1.4-6.5); Neutrophils % (auto) 46.5 %; Platelet Count 134 K/uL (130-400); RDW Coefficient of Variation 16.5 % (11.5-14.5); RDW Standard Deviation 48.1 fL (36.4-46.3); Red Blood Count 3.42 M/uL (4.2-5.4)
[2020-08-22] MEDS: GABAPENTIN 800 MG TAB PO SCH ×3 (07:42→22:45)
[2020-08-22] MEDS: ENOXAPARIN 150 MG/ML SYR SQ SCH (07:42)
[2020-08-22] MEDS: ATORVASTATIN 40 MG TAB PO SCH (07:42)
[2020-08-22] MEDS: MULTIVITAMIN TAB PO SCH (07:43)
[2020-08-22] MEDS: PANTOprazole 40 MG TAB PO SCH (07:43)
[2020-08-22] MEDS: ADVANCED PROBIOTIC 1250 MG CAPSULE PO SCH (07:43)
[2020-08-22] MEDS: TOPIRAMATE 50 MG TAB PO SCH ×2 (07:43→22:44)
[2020-08-22] MEDS: CHECK fentaNYL PATCH PLACEMENT SCH ×2 (07:43→17:55)
[2020-08-22] MEDS: METHADONE HCL 5 MG TAB PO SCH ×2 (07:43→22:47)
[2020-08-22] MEDS: SENNA 8.6 MG TAB PO SCH (07:44)
[2020-08-22] MEDS: fentaNYL 50 MCG/HR TDSY TD SCH (07:44)
[2020-08-22] MEDS: POLYETHYLENE (MIRALAX) 17 GM PACK PO SCH ×2 (07:44→18:13)
[2020-08-22] MEDS: fentaNYL 25 MCG/HR TDSY TD SCH (07:46)
[2020-08-22 07:54] LABS: Creatinine Clr Calc Pharmacy 138.8 ml/min; Est GFR (African American) 127.1; Est GFR (Non-African American) 109.7
[2020-08-22] MEDS: INSULIN ASPART 100 UNITS/ML 3 ML PEN SC SCH ×4 (08:43→22:33)
[2020-08-22] MEDS: AMOXICILLIN/CLAVULANATE 875 MG TAB PO SCH ×2 (08:44→18:14)
[2020-08-22] MEDS: HYDROmorphone HCL 2 MG TAB PO PRN ×4 (08:46→22:47)
[2020-08-22] MEDS: HEPARIN 100 UNIT/ML 5ML FLUSH FLUSH PRN (11:21)
[2020-08-22] MEDS: HYDROmorphone INJ 1 MG/ML SYRINGE IV PRN (11:21)
--- NOTE | 2020-08-22 13:07 | XRay Report ---
PA CHEST RADIOGRAPH AND UPRIGHT AND SUPINE AP RADIOGRAPHS OF THE ABDOMEN CLINICAL HISTORY: abdominal pain post-prandial COMPARISON STUDY: CT of the abdomen and pelvis July 06, 2020. Chest radiograph August 18, 2020 FINDINGS: A left subclavian [id number] is in place. There are median sternotomy wires. Elevation of left hemidiaphragm is unchanged. There is no pneumothorax or pleural effusion. Left basilar opacit y reflects atelectasis. There is no evidence for pulmonary edema. There is no free air. The bowel gas pattern is normal. IMPRESSION: 1. No free air or evidence of bowel obstruction. 2. No change in appearance of the chest. Stable elevation of the left hemidiaphragm. ACT 112: Negative or not required by law. Electronically signed by: Rylan aCrranza M.D. 08/22/2020 1:05 PM
[2020-08-22] MEDS ORDERED: OPTIRAY 300 100mL IV ONE (14:37)
--- NOTE | 2020-08-22 14:53 | Palliative Care Progress Note ---
Date of Service August 22, 2020 Assessment & Plan (1) Palliative care encounter: Miracle is feeling anxious and tearful when talking about coping with her cancer. Her hope is to "beat this" but she also recognizes that she may from this. She talks about next fall saying "If I'm still around". While she definitely want to continue treatment and remains a full code at this time, she also values the quality of time that she has now and talks about things that she likes to eat, spending time with friends and the support that she gets from the family cat. These are things that bring her comfort and sanaz and make life better for her at this time. (2) Chronic abdominal pain: Methadone increased to 5mg BID. Continue current medications. Will follow up in 3 weeks as outpatient for medication check. Admission and Anticipated Discharge Date Admission Date: August 18, 2020 Subjective More labile today. She continues to have pain which is generally relieved with current meds. Review of Systems Review of Systems: [place] Symptom Assessment Scale Pain 1/3 Dyspnea 0/3 Anxiety 2/3 Fatigue 1/3 Nausea 1/3 Palliative Performance Score 50% Physical Exam Constitutional: no acute distress ENMT: Mouth: oral mucous membranes not dry Respiratory: normal respiratory effort; no labored breathing Cardiovascular: Extremities: no edema Musculoskeletal: Extremities: + muscle atrophy Psychiatric: Affect: + labile affect Mood: + anxious mood Results & Data ([facility]) Vital Signs (Past 12 Hours) Vital Signs Temp Pulse Resp BP Pulse Ox 08/22/20 07:07 98.8 F 68 16 113/72 97 PG Care Time/CCT Total # of Minutes Spent Total Time Spent with Patient: Total time spent is greater than 50% in coordina tion of care (as documented) at patient's floor/unit and/or counseling patient: Coding Level of Care Code 43676 Subseq Hosp Care Lvl 2 Diagnoses Palliative care encounter Z51.5 Chronic abdominal pain R10.9; G89.29
--- NOTE | 2020-08-22 15:10 | CT Scan Report ---
CT OF THE ABDOMEN AND PELVIS WITH CONTRAST CLINICAL HISTORY: Abdominal pain, pancreatic cancer; SMV thrombus. COMPARISON STUDY: CT of the abdomen and pelvis July 13, 2020. TECHNIQUE: Following IV administration of 90 mL of Optiray, axial images of the abdomen and pelvis we re obtained from the lung bases to the proximal femurs. Images were reviewed in the axial, sagittal, and coronal planes. IV contrast was administered without complication. Automated exposure control wa s utilized for the study. A dose lowering technique was utilized adhering to the principles of ALARA . CT DOSE: 605.17 mGy.cm FINDINGS: Elevation of the left hemidiaphragm is unchanged. [id number] is partially imaged. A 1 cm subpleural irregular density within the right lower lobe on image 120 of 511 has slightly increased since prior exam. This is indeterminate but favors scarring. 3.8 cm hypodensity within the spleen is unchanged from earlier exams. This is benign. Adjacent hypodensity is also benign. A hemangioma withi n the right hepatic lobe, measuring 4.1 cm is unchanged. A few hypodensities within the capsular hypo dense foci within the left hepatic lobe are unlikely to reflect tumor. The adrenal glands and kidneys are unremarkable with exception of several left renal calculi that measure up to 7 mm. There is no h ydronephrosis. There are no ureteral calculi. Note is again made of a hypodense ill-defined pancreatic head mass that measures approximately 4.6 cm . This is similar in size to CT of July 13, 2020. There is associated pancreatic ductal dilatation a nd glandular atrophy. There is no biliary ductal dilatation. The gallbladder is surgically absent. Ma ss results in occlusion of a proximal branch of the superior mesenteric vein which was shown on prior examination. The superior mesenteric vein and main portal vein are patent although the superior mese nteric vein is slightly narrowed and tumor about 50% of the circumference of the SMV. Splenic vein is patent. Approximate 50% encasement of the superior mesenteric artery is noted. This has slightly inc reased since prior exam. Infiltration adjacent to the tumor has slightly increased. Note is made of a 1.2 cm hypodense nodule anterior to the mass on image 232. There is no evidence for a bowel obstruct ion. Caliber and wall thickness of small and large bowel are normal. The appendix is normal. There is no pelvic lymphadenopathy. Trace fluid within the pelvis is noted. No acute fracture or suspicious l esion is identified within the visualized skeletal structures. Subcutaneous gas is noted within the a nterior abdominal wall from injections. IMPRESSION: 1. Redemonstration of a 4.6 cm pancreatic head mass. Slight increase in adjacent infiltrative soft ti ssue since exam of July 13, 2020 with partial encasement of the SMV and SMA. SMV patent. Redemonstra tion of occlusion of a proximal branch of the SMV. 2. 1.2 cm hypodense nodule anterior to the pancreatic head mass suggestive of a tumor implant or path ologic lymph node. 3. No bowel obstruction. No bowel wall thickening. Normal appendix. 4. Left-sided nephrolithiasis. No ureteral calculi or hydronephrosis. ACT 112: Negative or not required by law. Electronically signed by: Rylan Carranza M.D. 08/22/2020 3:09 PM
[2020-08-22] MEDS: LORazepam 1 MG TAB PO SCH (16:18)
--- NOTE | 2020-08-22 18:23 | Hospitalist Progress Note ---
Date of Service August 22, 2020 Assessment & Plan (1) Cellulitis of leg, right: resolved. stopped IV vanco after yesterday's dose. 3 days of PO augmentin starting today (had been on keflex as outpatient prior to admission). (2) Chronic abdominal pain: 2nd to pancreatic ca, SMV thrombosis, SMA thrombosis, etc. on complex regimen of pain meds - combination of fentanyl patch, methadone and PO dilaudid. stop IV dilaudid - follow oral pain med needs sees Dr Humphrey from palliative care as outpatient and Dr Humphrey increased her methadone this admission. appreciate her assistance. no symptoms/signs of pancreatic exocrine deficiency. lipase wnl. CT abd/pelvis reviewed -- pain could be from transient mesenteric ischemia, biliary colic, the actual tumor itself, etc. Suspect the vasculature issue is contributing. uncertain if creon would help. (3) Neutropenia associated with infection: ANC and WBC count acceptable. blood cx's neg. cellulitis resolved (4) Pancreatic cancer: Continue fentanyl transdermal 75 mcg patch Continue hydromorphone 4 mg p.o. routinely every 4 hours as per outpatient schedule while awake Methadone 5 mg p.o. a.m. and at bedtime CT head w/o obvious mets s/p chemotherapy, 3rd round, about 1 week ago f/u with Dr Marco Burrows Heme/onc - next week as outpatient CT abd/pelvis noted today (5) Superior mesenteric vein thrombosis: Continue enoxaparin 140 mg subcu every morning CT abd/pelvis findings noted today (6) Superior mesenteric artery thrombosis: Cont lovenox daily therapeutic (7) Restless legs syndrome: Cont topamax Cont gabapentin Consider mirapex since RLS symptoms are severe (8) Depression with anxiety: Both are severe On very large dose of buspar at bedtime for anxiety/sleep She would benefit from antidepressant therapy -- psych consult appreciated; they adjusted ativan, but deferring antidepressant Rx to outpatient psychiatry as she has been on various meds in the past, had possible serotonin syndrome at one point? 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: all cell lines improving H/H and platelets cont to be acceptable blood cx's neg b12/folate wnl (12) Depression: as above (13) Iron deficiency anemia: consider IV venofer (14) Hypertension: on no specific Rx for such, and BPS are actually low or low-normal (15) Anxiety: as above ativan prn ativan HS buspar HS follows w/ psych as outpatient on monthly basis (16) Memory difficulty: CT head w/o mets / other pathology her polypharmacy may be causing some side effects and cognitive issues her sister mentioned longer term cognitive/memory issues as well psych consult appreciated palliative consult appreciated (17) DVT prophylaxis: lovenox therapeutic daily extensive discussion with sister by phone on Wednesday and updated her sister again yesterday hopefully can d/c home tomorrow if pain is reasonably controlled Admission and Anticipated Discharge Date Admission Date: August 18, 2020 Subjective patient states she had a good day yesterday - pain overall decent but following breakfast this am (ate 100% of her meal) she had central abd pain radiating to her back 1 episode of diarrhea early this am before eating she again is tearful today, stating "yesterday was a really hard day emotion ally" I told her I would get x-rays of abdomen and, if needed, CT abd/pelvis given the ongoing pain RLE cellulitis - no issues, no erythema, no pain no dyspnea no fever/chills Review of Systems Constitutional: no fever and no chills Respiratory: no cough Cardiovascular: no chest pain Physical Exam Constitutional: average body habitus; no acute distress and no altered mental status ENMT: external ear and nose normal, oropharynx normal (No thrush or mucositis ) Respiratory: normal respiratory effort, lungs clear to auscultation Cardiovascular: Rate/Rhythm: regular rate and regular rhythm Heart Sounds: normal S1 and normal S2; no murmur Vessels: posterior tibial pulses present and dorsalis pedis pulses present; no JVD Extremities: + vascular access device (L upper chest - clean ); no edema Gastrointestinal (Abdomen): normal bowel sounds, soft, nontender, no hepatosplenomegaly Skin: no rashes, warm and dry + pallor no cellulitis RLE Psychiatric: Orientation: alert and oriented x 3 Results & Data Results & Data ([facility]) Vital Signs (Past 12 Hours) Vital Signs Temp Pulse Resp BP Pulse Ox 08/22/20 15:13 36.9 C 89 16 164/96 H 98 08/22/20 07:07 37.1 C 68 16 113/72 97 Laboratory Results Laboratory Results - last 24 hr 08/21/20 08/22/20 08/22/20 20:42 07:06 07:06 WBC 2.40 L RBC 3.42 L Hgb 9.7 L Hct 29.1 L MCV 85.1 MCH 28.4 MCHC 33.3 RDW Std Deviation 48.1 H RDW Coeff of Natali 16.5 H Plt Count 134 MPV 10.5 H Immature Gran % (Auto) 1.3 Neut % (Auto) 46.5 Lymph % (Auto) 33.8 [place] % (Auto) 14.6 Eos % (Auto) 3.8 Baso % (Auto) 0.0 Neut # (Auto) 1.12 L Lymph # (Auto) 0.81 L [place] # (Auto) 0.35 Eos # (Auto) 0.09 Baso # (Auto) 0.00 Immature Gran # (Auto) 0.03 H Creatinine 0.45 L Est Cr Clr Drug Dosing 138.8 Est GFR ( Amer) 127.1 Est GFR (Non-Af Amer) 109.7 POC Glucose 124 H 08/22/20 08/22/20 08/22/20 08:08 12:19 17:20 WBC RBC Hgb Hct MCV MCH MCHC RDW Std Deviation RDW Coeff of Natali Plt Count MPV Immature Gran % (Auto) Neut % (Auto) Lymph % (Auto) [place] % (Auto) Eos % (Auto) Baso % (Auto) Neut # (Auto) Lymph # (Auto) [place] # (Auto) Eos # (Auto) Baso # (Auto) Immature Gran # (Auto) Creatinine Est Cr Clr Drug Dosing Est GFR ( Amer) Est GFR (Non-Af Amer) POC Glucose 94 113 H 109 H kub x-ray wnl CT abd/pelvis - FINDINGS: Elevation of the left hemidiaphragm is unchanged. [id number] is partially imaged. A 1 cm subpleural irregular density within the right lower lobe on image 120 of 511 has slightly increased since prior exam. This is indeterminate but favors scarring. 3.8 cm hypodensity within the spleen is unchanged from earlier exams. This is benign. Adjacent hypodensity is also benign. A hemangioma within the right hepatic lobe, measuring 4.1 cm is unchanged. A few hypodensities within the capsular hypodense foci within the left hepatic lobe are unlikely to reflect tumor. The adrenal glands and kidneys are unremarkable with exception of several left renal calculi that measure up to 7 mm. There is no hydronephrosis. There are no ureteral calculi. Note is again made of a hypodense ill-defined pancreatic head mass that measures approximately 4.6 cm. This is similar in size to CT of July 13, 2020. There is associated pancreatic ductal dilatation and glandular atrophy. There is no biliary ductal dilatation. The gallbladder is surgically absent. Mass results in occlusion of a proximal branch of the superior mesenteric vein which was shown on prior examination. The superior mesenteric vein and main portal vein are patent although the superior mesenteric vein is slightly narrowed and tumor about 50% of the circumference of the SMV. Splenic vein is patent. Approximate 50% encasement of the superior mesenteric artery is noted. This has slightly increased since prior exam. Infiltration adjacent to the tumor has slightly increased. Note is made of a 1.2 cm hypodense nodule anterior to the mass on image 232. There is no evidence for a bowel obstruction. Caliber and wall thickness of small and large bowel are normal. The appendix is normal. There is no pelvic lymphadenopathy. Trace fluid within the pelvis is noted. No acute fracture or suspicious lesion is identified within the visualized skeletal structures. Subcutaneous gas is noted within the anterior abdominal wall from injections. IMPRESSION: 1. Redemonstration of a 4.6 cm pancreatic head mass. Slight increase in adjacent infiltrative soft tissue since exam of July 13, 2020 with partial encasement of the SMV and SMA. SMV patent. Redemonstration of occlusion of a proximal branch of the SMV. 2. 1.2 cm hypodense nodule anterior to the pancreatic head mass suggestive of a tumor implant or pathologic lymph node. 3. No bowel obstruction. No bowel wall thickening. Normal appendix. 4. Left-sided nephrolithiasis. No ureteral calculi or hydronephrosis. ACT 112: Negative or not required by law. Electronically signed by: Rylan Carranza M.D. 08/22/2020 3:09 PM PG Care Time/CCT Total # of Minutes Spent Total Time Spent with Patient: Total time spent is greater than 50% in coordination of care (as documented) at patient's floor/unit and/or counseling patient: Coding Level of Care Code 19403 Subseq Hosp Care Lvl 3 Diagnoses Cellulitis of leg, right L03.115 Chronic abdominal pain R10.9; G89.29 Neutropenia associated with infection D70.3 Pancreatic cancer C25.9 Superior mesenteric vein thrombosis K55.069 Superior mesenteric artery thrombosis K55.069 Restless legs syndrome G25.81 Depression with anxiety F41.8 Diabetes E11.9 Diabetes mellitus complication status: without complication Diabetes mellitus long wall shear operator insulin use: without long wall shear operator use Diabetes mellitus type: type 2 Hyperlipidemia E78.5 Hyperlipidemia type: unspecified Antineoplastic chemotherapy induced pancytopenia D61.810; T45.1X5A Depression F32.9 Iron deficiency anemia D50.9 Hypertension I10 Hypertension type: essential hypertension Anxiety F41.9 Memory difficulty R41.3 DVT prophylaxis Z29.9 (1) Diabetes Diabetes mellitus complication status: without complication Diabetes mellitus long wall shear operator insulin use: without long wall shear operator use Diabetes mellitus type: type 2 Qualified Code(s): E11.9 - Type 2 diabetes mellitus without complications (2) Hyperlipidemia Hyperlipidemia type: unspecified Qualified Code(s): E78.5 - Hyperlipidemia, unspecified (3) Hypertension Hypertension type: essential hypertension Qualified Code(s): I10 - Essential (primary) hypertension
[2020-08-22] MEDS ORDERED: SODIUM CHLORIDE 0.9% 500 ML IV SCH (18:30)
[2020-08-22] MEDS: DOCUSATE SODIUM 100 MG CAP PO SCH (22:42)
[2020-08-22] MEDS: busPIRone 15 MG TAB PO SCH (22:44)
[2020-08-23] MEDS: CHECK fentaNYL PATCH PLACEMENT SCH ×2 (00:01→09:11)
[2020-08-23] MEDS: HEPARIN 100 UNIT/ML 5ML FLUSH FLUSH PRN ×2 (00:01→15:52)
[2020-08-23 07:07] LABS: Basophils # (auto) 0.01 K/uL (0-0.2); Basophils % (auto) 0.4 %; Eosinophils % (auto) 4.2 %; Hematocrit (blood only) 28.8 % (37-47); Hemoglobin 9.5 g/dL (12.0-16.0); Lymphocytes # (auto) 0.74 K/uL (1.2-3.4); Lymphocytes % (auto) 30.8 %; Mean Corpuscular Hemoglobin 28.5 pg (25-34); Mean Corpuscular Volume 86.5 fL (80-100); Mean Platelet Volume 10.8 fL (7.4-10.4); Monocytes # (auto) 0.41 K/uL (0.11-0.59); Monocytes % (auto) 17.1 %; Neutrophils # (auto) 1.14 K/uL (1.4-6.5); Neutrophils % (auto) 47.5 %; Platelet Count 148 K/uL (130-400); RDW Coefficient of Variation 16.6 % (11.5-14.5); RDW Standard Deviation 50.4 fL (36.4-46.3); Red Blood Count 3.33 M/uL (4.2-5.4)
[2020-08-23] MEDS: HYDROmorphone HCL 2 MG TAB PO PRN ×3 (07:48→16:14)
[2020-08-23 07:51] LABS: BUN Creatinine Ratio 15.4 (10-20); Creatinine Clr Calc Pharmacy 127.4 ml/min; Est GFR (African American) 123.6; Est GFR (Non-African American) 106.6; Potassium 3.6 mmol/L (3.5-5.1)
[2020-08-23] MEDS: POLYETHYLENE (MIRALAX) 17 GM PACK PO SCH (08:48)
[2020-08-23] MEDS: AMOXICILLIN/CLAVULANATE 875 MG TAB PO SCH (08:55)
[2020-08-23] MEDS: ADVANCED PROBIOTIC 1250 MG CAPSULE PO SCH (08:55)
[2020-08-23] MEDS: ATORVASTATIN 40 MG TAB PO SCH (08:55)
[2020-08-23] MEDS: GABAPENTIN 800 MG TAB PO SCH ×2 (08:55→14:06)
[2020-08-23] MEDS: METHADONE HCL 5 MG TAB PO SCH (08:56)
[2020-08-23] MEDS: MULTIVITAMIN TAB PO SCH (08:56)
[2020-08-23] MEDS: TOPIRAMATE 50 MG TAB PO SCH (08:56)
[2020-08-23] MEDS: PANTOprazole 40 MG TAB PO SCH (08:56)
[2020-08-23] MEDS: ENOXAPARIN 150 MG/ML SYR SQ SCH (08:57)
[2020-08-23] MEDS ORDERED: ERGOCALCIFEROL 50,000 UNITS 1250 MCG CAP PO SCH (09:00)
[2020-08-23] MEDS: INSULIN ASPART 100 UNITS/ML 3 ML PEN SC SCH ×2 (09:17→12:37)
[2020-08-23] MEDS: SENNA 8.6 MG TAB PO SCH (12:34)
[2020-08-23] MEDS: ACETAMINOPHEN 500 MG TAB PO PRN (14:07)
--- NOTE | 2020-08-23 15:52 | Discharge Summary ---
Date of Service date of admission - August 18, 2020 date of discharge - August 23, 2020 Admission HPI Per Admitting Provider The patient is a 60-year-old female with a past medical history including pancreatic cancer, having undergone her third chemo treatment 6 days ago, anxiety, constipation, multiple pulmonary nodules, upper GI bleed, abdominal lymphadenopathy, superior mesenteric vein thrombosis, renal stone, liver nodule, chronic migraine, vitamin D deficiency, RLS, metabolic syndrome X, depression with anxiety, diabetes, mild COPD, hypertension and hyperlipidemia. She was initially assessed 3 days ago in the ED for a right greater than left lower extremity cellulitis, and was started on Keflex. She presented to the ED this evening with worsening symptoms. Work-up in the emergency department included the following labs: WBC 1.46, ANC 450 and COVID-19 negative. Principal Diagnosis 1. RLE cellulitis - resolved 2. chemotherapy-induced pancytopenia with severe neutropenia - improved 3. pancreatic cancer 4. chronic abdominal pain 2nd to #3 Discharge Exam Constitutional average body habitus; no acute distress and no altered mental status ENMT external ear and nose normal, oropharynx normal (No thrush or mucositis ) Respiratory normal respiratory effort, lungs clear to auscultation Cardiovascular Rate/Rhythm: regular rate and regular rhythm Heart Sounds: normal S1 and normal S2; no murmur Vessels: posterior tibial pulses present and dorsalis pedis pulses present; no JVD Extremities: + vascular access device (L upper chest - clean ); no edema Gastrointestinal (Abdomen) normal bowel sounds, soft, nontender, no hepatosplenomegaly Skin no rashes, warm and dry + pallor no further cellulitis of RLE Psychiatric Orientation: alert and oriented x 3 Affect: + depressed affect and + blunted affect Discharge Data Allergies Allergy/AdvReac Type Severity Reaction Status Date / Time latex Allergy Intermediate rash Verified 08/29/20 13:03 sulfamethoxazole Allergy Intermediate itching, Verified 08/29/20 13:03 chest tightness trimethoprim Allergy Intermediate itching, Verified 08/29/20 13:03 chest tightness adhesive Allergy Unknown ITCHY SKIN Verified 08/29/20 13:03 clindamycin AdvReac Severe Diarrhea Verified 08/29/20 13:03 doxycycline AdvReac Intermediate nausea and Verified 08/29/20 13:03 vomiting Consultations 08/19/20 19:25 Consult Palliative Care Routine 08/19/20 19:27 Consult Psychiatry Routine Ordered Studies Chest X-Ray 08/18/20 18:24 XR chest 1V portable HISTORY: 60 years-old Female SEPSIS acute sepsis COMPARISON: Chest radiograph 07/13/2020 TECHNIQUE: Portable AP view the chest FINDINGS: Chronic left hemidiaphragmatic elevation. Cardiac silhouette is enlarged. Stable positioning of the left subclavian Yjxvjo-z-Vjwj catheter. Median sternotomy with surgical clips again noted projecting over the mediastinum. No pneumothorax, large pleural effusion or overt pulmonary edema. No airspace consolidation typical for pneumonia. Bones appear grossly intact. IMPRESSION: Chronic findings as above without acute process. ACT 112: Negative or not required by law. The above report was generated using voice recognition software. It may contain grammatical, syntax or spelling errors. Electronically signed by: Blue Rod M.D. 08/18/2020 7:[address] 08/19/20 18:35 CT SCAN OF THE BRAIN WITHOUT IV CONTRAST CLINICAL HISTORY: Metastatic survey. Pancreatic cancer. COMPARISON STUDY: CT of the brain dated 07/13/2020. TECHNIQUE: Unenhanced axial CT scan of the brain is performed from the vertex to the skull base. A dose lowering technique was utilized adhering to the principles of ALARA. CT DOSE: 537.48 mGy.cm FINDINGS: Brain parenchyma: The brain parenchyma is normal in appearance. There is no hemorrhage, mass effect, or evidence of acute territorial ischemia by CT criteria. Ernst-white matter differentiation is preserved. No extra-axial fluid collection is seen. Ventricles, sulci, cisterns: Normal in configuration. Intracranial vasculature: The visualized intracranial vasculature at the skull base is normal in appearance. Calvarium: Unremarkable. Sinuses and mastoids: The visualized paranasal sinuses are clear. The mastoid air cells are well pneumatized. Orbits: The bony orbits are grossly intact. IMPRESSION: There is no hemorrhage, mass effect, or evidence of acute territorial ischemia by CT criteria. ACT 112: Negative or not required by law. Electronically signed by: Ishan Holt M.D. 08/19/2020 9:16 PM Chest/Abdomen X-ray 08/22/20 12:22 PA CHEST RADIOGRAPH AND UPRIGHT AND SUPINE AP RADIOGRAPHS OF THE ABDOMEN CLINICAL HISTORY: abdominal pain post-prandial COMPARISON STUDY: CT of the abdomen and pelvis July 06, 2020. Chest radiograph August 18, 2020 FINDINGS: A left subclavian [id number] is in place. There are median s ternotomy wires. Elevation of left hemidiaphragm is unchanged. There is no pneumothorax or pleural effusion. Left basilar opacity reflects atelectasis. There is no evidence for pulmonary edema. There is no free air. The bowel gas pattern is normal. IMPRESSION: 1. No free air or evidence of bowel obstruction. 2. No change in appearance of the chest. Stable elevation of the left hemidiaphragm. ACT 112: Negative or not required by law. Electronically signed by: Rylan Carranza M.D. 08/22/2020 1:05 PM Abdomen/Pelvis CT 08/22/20 13:57 CT OF THE ABDOMEN AND PELVIS WITH CONTRAST CLINICAL HISTORY: Abdominal pain, pancreatic cancer; SMV thrombus. COMPARISON STUDY: CT of the abdomen and pelvis July 13, 2020. TECHNIQUE: Following IV administration of 90 mL of Optiray, axial images of the abdomen and pelvis were obtained from the lung bases to the proximal femurs. Images were reviewed in the axial, sagittal, and coronal planes. IV contrast was administered without complication. Automated exposure control was utilized for the study. A dose lowering technique was utilized adhering to the principles of ALARA. CT DOSE: 605.17 mGy.cm FINDINGS: Elevation of the left hemidiaphragm is unchanged. Yqdqkb-v-Dzxn is partially imaged. A 1 cm subpleural irregular density within the right lower lobe on image 120 of 511 has slightly increased since prior exam. This is indeterminate but favors scarring. 3.8 cm hypodensity within the spleen is unchanged from earlier exams. This is benign. Adjacent hypodensity is also benign. A hemangioma within the right hepatic lobe, measuring 4.1 cm is unchanged. A few hypodensities within the capsular hypodense foci within the left hepatic lobe are unlikely to reflect tumor. The adrenal glands and kidneys are unremarkable with exception of several left renal calculi that measure up to 7 mm. There is no hydronephrosis. There are no ureteral calculi. Note is again made of a hypodense ill-defined pancreatic head mass that measures approximately 4.6 cm. This is similar in size to CT of July 13, 2020. There is associated pancreatic ductal dilatation and glandular atrophy. There is no bi liary ductal dilatation. The gallbladder is surgically absent. Mass results in occlusion of a proximal branch of the superior mesenteric vein which was shown on prior examination. The superior mesenteric vein and main portal vein are patent although the superior mesenteric vein is slightly narrowed and tumor about 50% of the circumference of the SMV. Splenic vein is patent. Approximate 50% encasement of the superior mesenteric artery is noted. This has slightly increased since prior exam. Infiltration adjacent to the tumor has slightly increased. Note is made of a 1.2 cm hypodense nodule anterior to the mass on image 232. There is no evidence for a bowel obstruction. Caliber and wall thickness of small and large bowel are normal. The appendix is normal. There is no pelvic lymphadenopathy. Trace fluid within the pelvis is noted. No acute fracture or suspicious lesion is identified within the visualized skeletal structures. Subcutaneous gas is noted within the anterior abdominal wall from injections. IMPRESSION: 1. Redemonstration of a 4.6 cm pancreatic head mass. Slight increase in adjacent infiltrative soft tissue since exam of July 13, 2020 with partial encasement of the SMV and SMA. SMV patent. Redemonstration of occlusion of a proximal branch of the SMV. 2. 1.2 cm hypodense nodule anterior to the pancreatic head mass suggestive of a tumor implant or pathologic lymph node. 3. No bowel obstruction. No bowel wall thickening. Normal appendix. 4. Left-sided nephrolithiasis. No ureteral calculi or hydronephrosis. ACT 112: Negative or not required by law. Electronically signed by: Rylan aCrranza M.D. 08/22/2020 3:09 PM Hospital Course (1) Cellulitis of leg, right: Fully resolved with use of IV vancomycin while hospitalized. She was transitioned to oral augmentin prior to discharge. She will complete 3 more doses of PO augmentin at home. (2) Chronic abdominal pain: 2nd to pancreatic cancer, SMV thrombosis, SMA thrombosis, etc. Cannot rule out transient mesenteric ischemia following meals contributing to post- prandial pain. On complex regimen of pain meds - combination of fentanyl patch, methadone and PO dilaudid. Required intermittent/prn IV dilaudid while here. Dr Angelina Humphrey from palliative care saw Ms Trinh in consult. Dr Humphrey follows Ms Trinh in the palliative care outpatient clinic and has been managing her pain. Dr Humphrey suggested an increase in her methadone this admission from 2.5mg BID to 5mg BID. Fentanyl patch was left at 75mcg q3days. Oral dilaudid was left unchanged. She had no symptoms/signs of pancreatic exocrine deficiency while here (no post- prandial diarrhea, etc). Lipase was wnl; thus acute pancreatitis was not suspected. A repeat CT abd/pelvis was obtained while here. There was a slight increase in the size of the pancreatic mass on this CT and a 1.2cm tumor implant also identified. These results were forwarded to her primary oncologist at [facility], Dr Sacha Lara. (3) Neutropenia associated with infection: ANC and WBC count acceptable by time of discharge (ANC >1000 at discharge, and total WBC 2.4). blood cx's negative while here. cellulitis resolved with IV/PO antibiotics. (4) Pancreatic cancer: Continue fentanyl transdermal 75 mcg patch q72h. Continue hydromorphone 4 mg p.o. routinely every 4 hours as per outpatient schedule. Methadone 5 mg p.o. a.m. and at bedtime. CT head w/o obvious mets. CT abd/pelvis with results as noted in this document. s/p chemotherapy, 3rd round, about 1 week prior to admission with resulting pancytopenia. f/u with Dr Sacha Lara - [facility] - in the week following discharge to assess readiness for next round of chemotherapy. Dr Lara was kept informed of pt's admission by telephone while she was here. (5) Superior mesenteric vein thrombosis: Continue enoxaparin 140 mg subcu every morning CT abd/pelvis with unchanged SMV findings (6) Superior mesenteric artery thrombosis: Cont lovenox daily SMA findings on CT abd/pelvis this admission unchanged (7) Restless legs syndrome: Cont topamax Cont gabapentin Consider mirapex since RLS symptoms are severe but deferred during the admission (8) Depression with anxiety: Both are severe. On very large dose of buspar at bedtime for anxiety/sleep. She would benefit from antidepressant therapy. Psychiatry was consulted for assistance with this significant issue. They adjusted her HS ativan to help promote better sleep -- but deferred on initiating a new antidepressant. They asked the patient to follow-up with her outpatient psychiatrist to determine which antidepressant would be best for her. By report she has been on various meds in the past and had possible serotonin syndrome at one point due to polypharmacy? A prescription for the increased dose of ativan was given at discharge. She had no suicidal or homicidal ideation during the hospitalization. (9) Diabetes: a1c <6% Recommended to completely STOP her metformin at d/c given her poor oral intake, GI issues, low a1c, etc. (10) Hyperlipidemia: Continue atorvastatin LFTs wnl (11) Antineoplastic chemotherapy induced pancytopenia: all cell lines improved prior to discharge. H/H and platelets were acceptable; she did not require PRBCs or platelet infusion. she did not require neupogen medication. blood cx's negative. b12/folate wnl. ferritin was 61. (12) Depression: as above (13) Iron deficiency anemia: consider IV venofer as outpatient; ferritin 61 while here. transferrin saturation 12%. (14) Hypertension: on no specific Rx for such, and BPS were actually low or low-normal while here. Discharge BP was 111/76. (15) Anxiety: as above ativan prn ativan HS buspar HS follows w/ psych as outpatient on monthly basis (16) Memory difficulty: CT head w/o mets / other pathology her polypharmacy may be causing some side effects and cognitive issues her sister mentioned longer term cognitive/memory issues as well psych consult appreciated palliative consult appreciated (17) DVT prophylaxis: lovenox 140mg once daily as previous Total Time Total Time Spent Total Time Spent (In Minutes): 45 Total Time Includes: Examination of the Patient, Discharge Planning, Medication Reconciliation and Communication With Other Providers Discharge Plan Discharge Items Patient Disposition: Home - Self-Care Reason For Visit: Right leg cellulitis Discharge Diagnosis: 1. Right leg cellulitis (skin infection) - resolved 2. Severe neutropenia due to recent chemotherapy - improved 3. Abdominal pain due to pancreatic cancer 4. Depression & anxiety Activity: Resume your previous activity Non-emergency contact: Primary Care Provider, Specialist and Oncologist Call non-emergency contact if: you have any medication questions, your symptoms worsen, your pain is not controlled, your pain is worsening, your pain is unusual for you, your pain is concerning for you and you have a fever Follow-up/Referrals: [facility] [Outside] - 08/30/20 2:00 pm (Therapy appointment with Masood on 08/30 at 2pm Psychiatry appointment with Dr. Alba on 09/18 at 11am) Brent Dye III, CRNP [Primary Care Provider] - 08/27/20 9:20 am Angelina Humphrey MD [Physician] - 08/29/20 (see Dr Humphrey on 08/29/20 as scheduled from palliative care ) Sacha Lara MD [Surgeon] - (see Dr Lara this week for scheduled chem otherapy unless otherwise directed ) Diet: Carb Consistent or DM2 Addtl Attending Provider Instructions: Cam Willis were admitted to the hospital for the problems listed above in "discharge diagnoses." Your right leg cellulitis quickly improved with IV antibiotics. You were transitioned to oral antibiotics on 08/22/20 and the leg continues to look good. You have 3 more doses of antibiotic to take. Take your first dose at bedtime tonight. I have sent the prescription for the antibiotic to [facility] for you. Dr Humphrey from palliative care saw you in consult and recommended a small increase in your methadone for your abdominal pain. You are now on 5mg twice daily (previously it was 2.5mg twice daily). I have sent a prescription for a 1-week supply of the new methadone dose to [facility] for you. You had a CT of the abdomen and pelvis on 08/22/20. It was largely unchanged from the last CT scan done in June. I will send a copy of this to Dr Lara. The psychiatry team saw you for your depression, anxiety, and sleep troubles. The psychiatrist increased your lorazepam (ativan) to 2mg at bedtime to help you rest better. I sent in the prescription for the larger ativan dose to [facility] for you. Please follow-up with your outpatient psychiatrist & therapist for these problems. Finally, your blood sugars were well-controlled despite not taking your metformin medication. I think you can stop your metformin at this time. Follow-up - see separate section Return to [facility] if - * you have fever over 100.4 degrees * you have worsening shortness of breath * you have worsening abdominal pain despite taking all of your usual pain medications * you develop severe diarrhea * you have suicidal thoughts or thoughts of hurting someone else * any other concerns I enjoyed caring for you and please feel better! -Dr Arriaga Pending Studies at Discharge: No Stand-Alone Forms: My [facility], Smoking Cessation Medications and DC Order Prescriptions: New lorazepam 2 mg tablet 2 mg PO HS Qty: 30 RF: 0 Continued multivitamin [Daily Multi-Vitamin] tablet 1 tab PO QAM RF: 0 ondansetron HCl 8 mg tablet 8 mg PO Q8H PRN (Reason: Nausea) RF: 0 prochlorperazine maleate 10 mg tablet 10 mg PO Q6H PRN (Reason: Nausea) RF: 0 gabapentin 800 mg tablet 800 mg PO TID Qty: 90 RF: 5 Narcan 4 mg/actuation spray,non-aerosol 4 mg intranasal Q2M PRN (Reason: opioid overdose) Qty: 2 RF: 0 pantoprazole 40 mg Tablet,Delayed Release (Dr/Ec) 40 mg PO QAM 30 Days Qty: 30 RF: 3 acetaminophen [Tylenol Extra Strength] 500 mg Tablet 1,000 mg PO DIRECTED PRN (Reason: Pain) RF: 0 buspirone 30 mg tablet 30 mg PO HS RF: 0 promethazine 25 mg Tablet 25 mg PO BID PRN (Reason: NAUSEA/VOMITING) RF: 0 docusate sodium [Colace] 100 mg Capsule 100 mg PO QPM RF: 0 ergocalciferol (vitamin D2) [Vitamin D2] 1,250 mcg (50,000 unit) Capsule 1,250 mcg PO WK RF: 0 lorazepam 1 mg tablet 0.5 mg PO Q6H PRN (Reason: Anxiety) RF: 0 atorvastatin 40 mg tablet 40 mg PO QAM RF: 0 polyethylene glycol 3350 [Miralax] 17 gram powder in packet 17 g PO BIDM RF: 0 enoxaparin 150 mg/mL syringe 140 mg subcut QAM RF: 0 Discontinued metformin 500 mg tablet extended release 24 hr 1,000 mg PO HS Qty: 60 RF: 0 methadone 5 mg Tablet 2.5 mg PO AMHS RF: 0 No Action amoxicillin-pot clavulanate [Augmentin] 875-125 mg tablet 1 tab PO BID Qty: 10 RF: 0 hydromorphone 4 mg tablet 4 mg PO Q4H PRN (Reason: pain) Qty: 60 RF: 0 fentanyl 50 mcg/hr patch 72 hour 50 mcg transdermal Q72H Qty: 10 RF: 0 fentanyl 25 mcg/hr patch 72 hour 1 patch transdermal Q72H Qty: 10 RF: 0 methadone 5 mg tablet 5 mg PO AMHS RF: 0 Discharge Orders: Discharge Order (Routine); Ordered 08/23/20 Ordered By: Dhaval Arriaga Admission Data Admit Date/Time: 08/18/20 21:23 Attending Provider: Dhaval Arriaga Admit Provider: Diego Adames Primary Care Provider: Brent Dye III Other Providers: Diego Adames ; Sacha Lara ; Angelina Humphrey ; Dara Ugalde Other Interventions: Discharge Summary Assessment (RN) Last Done: 08/23/20 16:22 PSY Interdisciplinary Discharge Planning Last Done: 08/20/20 11:30 Coding Level of Care Code D/C Day Management >30 mins Diagnoses Cellulitis of leg, right L03.115 Chronic abdominal pain R10.9; G89.29 Neutropenia associated with infection D70.3 Pancreatic cancer C25.9 Superior mesenteric vein thrombosis K55.069 Superior mesenteric artery thrombosis K55.069 Restless legs syndrome G25.81 Depression with anxiety F41.8 Diabetes E11.9 Diabetes mellitus complication status: without complication Diabetes mellitus penitentiary insulin use: without lemon grower use Diabetes mellitus type: type 2 Hyperlipidemia E78.5 Hyperlipidemia type: unspecified Antineoplastic chemotherapy induced pancytopenia D61.810; T45.1X5A Depression F32.9 Iron deficiency anemia D50.9 Hypertension I10 Hypertension type: essential hypertension Anxiety F41.9 Memory difficulty R41.3 DVT prophylaxis Z29.9
== END 2020-08-23 16:38 | disposition home or self-care (01) | DRG 602 ==
LOC: ED 16:54 → SUATTDRO 21:23 → 3E 21:23

== ENCOUNTER 2020-09-02 13:42 | Observation (INO) ==
[2020-09-02] MEDS ORDERED: ACETAMINOPHEN 1,000 MG/100 ML VIAL IV STA (14:48)
[2020-09-02] MEDS ORDERED: MoRPHine SULFATE 2 MG/ML CARP IV STA (14:48)
[2020-09-02] MEDS ORDERED: SODIUM CHLORIDE 0.9% 500 ML IV ONE (14:48)
[2020-09-02 15:48] LABS: Hematocrit (blood only) 31.2 % (37-47); Hemoglobin 9.9 g/dL (12.0-16.0); Mean Corpuscular Hgb Conc 31.7 g/dL (32-36); Mean Corpuscular Volume 88.1 fL (80-100); Mean Platelet Volume 11.5 fL (7.4-10.4); Platelet Count 202 K/uL (130-400); RDW Coefficient of Variation 15.8 % (11.5-14.5); RDW Standard Deviation 51.1 fL (36.4-46.3); Red Blood Count 3.54 M/uL (4.2-5.4); White Blood Count 1.54 K/uL (4.8-10.8)
[2020-09-02 16:02] LABS: INR 1.1 (0.9-1.1); Partial Thromboplastin Ratio 1.3; Prothrombin Time 10.7 Seconds (9.0-12.0)
[2020-09-02 16:09] LABS: Albumin Level 3.6 gm/dl (3.4-5.0); Aspartate Aminotransferase 22 U/L (15-37); BUN Creatinine Ratio 12.8 (10-20); Blood Urea Nitrogen 8 mg/dl (7-18); Calcium 9.2 mg/dl (8.5-10.1); Carbon Dioxide 28 mmol/L (21-32); Chloride 106 mmol/L (98-107); Est GFR (African American) 113.8 ml/min; Est GFR (Non-African American) 98.2 ml/min; Glucose 71 mg/dl (70-99); Potassium 3.7 mmol/L (3.5-5.1); Sodium 140 mmol/L (136-145)
[2020-09-02 16:13] LABS: Alanine Aminotransferase 27 U/L (12-78); Albumin Globulin Ratio 1.3 (0.9-2); Alkaline Phosphatase 96 U/L (45-117); Bilirubin Direct 0.1 mg/dl (0-0.2); Bilirubin,Total 0.3 mg/dl (0.2-1); C Reactive Protein < 0.29 mg/dl (0-0.29); Creatine Kinase 45 U/L (26-192); Globulin 2.8 gm/dl (2.5-4.0); Phosphorus 3.6 mg/dl (2.5-4.9); Total Protein 6.4 gm/dl (6.4-8.2)
--- NOTE | 2020-09-02 16:15 | XRay Report ---
XR chest 1V portable HISTORY: SEPSIS COMPARISON: Chest 08/22/2020. FINDINGS: No pneumothorax. No pleural effusions. Chronic elevation of the left hemidiaphragm with a l eft basilar linear densities. This favors subsegmental atelectasis. This is unchanged compared the pr ior study. The right lung is essentially clear. There are poststernotomy changes. Left subclavian Por t-A-Cath terminates at the SVC. IMPRESSION: No significant change compared to the prior study. No acute process. Chronic elevation of the left he midiaphragm is again noted. ACT 112: Negative or not required by law. Electronically signed by: Joshua Jacobo M.D. 09/02/2020 4:14 PM
--- NOTE | 2020-09-02 16:21 | XRay Report ---
XR ankle RT min 3V routine, XR foot RT min 3V routine CLINICAL HISTORY: Right ankle and foot pain. Swelling. COMPARISON STUDY: Right ankle 08/16/2020. FINDINGS: Progressive moderate soft tissue swelling within the right ankle. No acute fracture or disl ocation. Plantar heel spur is again noted. There is also soft tissue swelling within the right foot. IMPRESSION: Diffuse soft tissue swelling within the right ankle and foot. No fractures. ACT 112: Negative or not required by law. Electronically signed by: Joshua Jacobo M.D. 09/02/2020 4:20 PM
[2020-09-02 16:35] LABS: Basophils # (auto) 0.03 K/uL (0-0.2); Basophils % (auto) 1.9 %; Eosinophils # (auto) 0.05 K/uL (0-0.5); Eosinophils % (auto) 3.2 %; Giant Platelets 2+; Immature Granulocytes # (auto) 0.01 K/uL (0.00-0.02); Immature Granulocytes % (auto) 0.6 %; Lymphocytes % (auto) 45.5 %; Monocytes # (auto) 0.14 K/uL (0.11-0.59); Monocytes % (auto) 9.1 %; Neutrophils # (auto) 0.61 K/uL (1.4-6.5); Neutrophils % (auto) 39.7 %
[2020-09-02] MEDS ORDERED: cefTRIAXone SODIUM 2,000 MG/70 ML BAG IV STA (17:01)
[2020-09-02] MEDS ORDERED: VANCOMYCIN CONSULT ACTIVE PRN (17:01)
[2020-09-02] MEDS ORDERED: VANCOMYCIN HCL 2,000 MG in SODIUM CHLORIDE 0.9% 500 ML IV ONE (17:01)
--- NOTE | 2020-09-02 17:16 | Ultrasound Report ---
RIGHT LOWER EXTREMITY VENOUS DOPPLER CLINICAL HISTORY: panc ca, RLE swelling COMPARISON STUDY: No previous studies for comparison. TECHNIQUE: Sonography of the deep venous system of the right lower extremity was performed. Compress ion and augmentation were evaluated. FINDINGS: The right common femoral, superficial femoral and popliteal veins were compressible. Augme ntation was normal. Flow was shown within the deep calf vessels. Incidental note is made of a 2.5 x 1 .2 x 0.6 cm right popliteal cyst. IMPRESSION: 1. No evidence of deep venous thrombus within the right lower extremity. 2. Small right popliteal cyst. ACT 112: Negative or not required by law. Electronically signed by: Rylan Carranza M.D. 09/02/2020 5:14 PM
--- NOTE | 2020-09-02 18:04 | Emergency Department Note ---
Impression & Plan Neutropenia associated with infection, Cellulitis of foot, right, Pancreatic cancer, Metastatic disease ED Provider Note NAME: GWENDOLYN CHAVEZ AGE: 60 SEX: F ARRIVES VIA: Walk-In INFORMANT: Patient, ED PROVIDER(S): Beto Jacobs MD CHIEF COMPLAINT: Fevers, foot pain PLAN: Disposition: Admit MEDICAL DECISION MAKING: The patient is a pleasant 60-year-old woman with a past medical history of metastatic pancreatic cancer who presents to the emergency department with fevers and chills that began on Wednesday with a recurrence of her right foot and ankle swelling and redness and pain in the setting of being admitted to [facility] from 08/18-08/23 for similar symptoms treated for cellulitis in the setting of being neutropenic. She reports her cellulitis had completely resolved by the time she was discharged. Patient has not had chemotherapy since her last treatment 6 days preceding her last admission. She denies nausea, vomiting, diarrhea or urinary symptoms. On arrival the patient is chronically ill-appearing, uncomfortable but no acute distress, afebrile with stable vital signs. She has 1+ pitting edema to the right foot and ankle with mild erythema and warmth of the dorsum of the foot. Capillary refill is less than 2 seconds. There is no crepitus. EKG without overt acute ischemia. CXR negative for acute cardiopulmonary process . WBC 1.5K with neutropenia with ANC 0.61 after having had her neutropenia resolved. Chemistry without metabolic acidosis. Lactate 1.1, within normal limits. LFTs and electrolytes unremarkable. CRP and ESR within normal limits. COVID-19 PCR was negative. Procalcitonin is not elevated. Films of the right foot and ankle negative for acute fracture or osseous involvement. Right lower extremity ultrasound negative for DVT. Incidental note is made of right popliteal cyst. Given the patient's report of fevers for the past several days in the setting of her neutropenia she agrees with plan for admission for IV antibiotics. CTX and Vancomycin initiated. Case was discussed with Dr. Saavedra, [facility] hospitalist, who will evaluate the patient for admission. Triage Nursing notes reviewed and agree them. Prior medical records reviewed Vital Signs: reviewed and remarkable for no significant abnormalities Differential diagnosis: Viral syndrome, otitis, pharyngitis, pneumonia, influenza, meningitis, urinary tract infection, sepsis, bacteremia, as well as other pathologies. ER treatment provided: See below. Diagnostics interpreted by : ECG: NSR, 73 bpm, no ectopy, no overt ST elevation or depression. Cardiac Monitoring: An order for continuous cardiac monitoring was placed and demonstrated NSR, 73 bpm, no ectopy. Laboratory studies: See below Imaging studies: See below Consultation(s): Case was discussed with Dr. Saavedra, [facility] hospitalist, who will evaluate the patient for admission. HPI: The patient is a pleasant 60-year-old woman with a past medical history of metastatic pancreatic cancer who presents to the emergency department with fevers and chills that began on Wednesday with a recurrence of her right foot and ankle swelling and redness and pain in the setting of being admitted to [facility] from 08/18-08/23 for similar symptoms treated for cellulitis in the setting of being neutropenic. She reports her cellulitis had completely resolved by the time she was discharged. Patient has not had chemotherapy since her last treatment 6 days preceding her last admission. She denies nausea, vomiting, diarrhea or urinary symptoms. ROS: See above HPI for pertinent positives & negatives. A total of 10 systems reviewed and were otherwise negative. PAST MEDICAL HISTORY:See Below PAST SURGICAL HISTORY:See Below FAMILY HISTORY:See Below SOCIAL HISTORY:See Below HOME MEDICATIONS:See Below ALLERGIES:See Below VITALS:See Below PHYSICAL EXAMINATION: GENERAL: Awake, alert, uncomfortable/fatigued-appearing, in no distress, BMI 30.0. HENT: Normocephalic, atraumatic. Oropharynx with dry mucous membranes and otherwise unremarkable. EYES: Normal conjunctiva. Sclera non-icteric. NECK: Supple. No nuchal rigidity. FROM. No JVD. RESPIRATORY: Clear to auscultation. CARDIAC: Regular rate, normal rhythm. Extremities warm and well perfused. Pulses equal. ABDOMEN: Soft, non-distended. Generalized abdominal discomfort at the patient's baseline without discrete tenderness to palpation. No rebound or guarding. No masses. RECTAL: Deferred. MUSCULOSKELETAL: Chest examination reveals no tenderness. The back is symmetrical on inspection without obvious abnormality. There is no CVA tenderness to palpation. No joint edema. LOWER EXTREMITIES: Calves are equal size bilaterally and non-tender. 1+ pitting edema to the right foot and ankle with mild erythema and warmth of the dorsum of the foot. Capillary refill is less than 2 seconds. No crepitus. NEURO: Normal sensorium. No sensory or motor deficits noted. SKIN: No jaundice noted. Beto Jacobs MD Past Med/Surg History Medical History Abdominal pain Acute pancreatitis Cellulitis of leg, right Constipation Diabetes Headache History of uterine fibroid Hyperlipidemia Hypertension Intractable vomiting Iron deficiency anemia Migraine (09/09/12) Nausea & vomiting Pancreatic duct stricture Pancreatitis, acute Panic attack (09/09/12) PMB (postmenopausal bleeding) Restless legs syndrome Superior mesenteric vein thrombosis Thrombus Surgical History 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 Umanzor 07/10/2020 S/P surgical removal of pilonidal cyst Family History Sister Endometrial cancer Arthritis Celiac disease Hypertension Diabetes Mother Hypertension Congestive heart failure (CHF) Kidney failure Heart disease Father Parkinson disease Myocardial infarction Graves disease Skin cancer Denies family history of Ovarian cancer Prostate cancer Breast cancer Colorectal cancer Social History Smoking Status: Former smoker Tobacco Type: Cigarettes Age Started Using Tobacco: 21; Age Quit Using Tobacco: 58; packs per day: 1; Years Smoked: 37; Cigarettes Per Day: 2; Number of Years Since Quit: 1; Second Hand Exposure: No; Do You Dip or Chew Tobacco: No; Tobacco Cessation Education Requested by Patient: No Hx Alcohol Use: No Hx Substance Use: No Preferred Language: Serbian Communication Ability: Effective Visual Impairment: No Limitations Hearing Ability: Normal 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: No Beliefs That Will Affect Care: None marital status: Single Current Living Situation: Family Current Living Situation Comment: with sister current occupational status: disabled Other Information That Helps Us Care for You: No Feels Safe at Home: Yes Safety Concerns: Feels Safe At This Time Childhood Exposure to Second-Hand Smoke: No Dental Care, Regularly: No Physical Activity Frequency: Does not Exercise Seatbelt Use: always Sunscreen Use: Yes Assistive Devices: None Allergies Allergies Allergy/AdvReac Type Severity Reaction Status Date / Time latex Allergy Intermediate rash Verified 08/29/20 13:03 sulfamethoxazole Allergy Intermediate itching, Verified 08/29/20 13:03 chest tightness trimethoprim Allergy Intermediate itching, Verified 08/29/20 13:03 chest tightness adhesive Allergy Unknown ITCHY SKIN Verified 08/29/20 13:03 clindamycin AdvReac Severe Diarrhea Verified 08/29/20 13:03 doxycycline AdvReac Intermediate nausea and Verified 08/29/20 13:03 vomiting Home Meds Home Medications Medication Instructions Recorded Confirmed multivitamin 1 tab PO QAM 10/26/18 09/02/20 buspirone 30 mg PO HS 04/16/20 09/02/20 acetaminophen [Tylenol Extra 1,000 mg PO DIRECTED PRN 06/12/20 09/02/20 Strength] ondansetron HCl 8 mg tablet 8 mg PO Q8H PRN 08/01/20 09/02/20 prochlorperazine maleate 10 mg 10 mg PO Q6H PRN 08/01/20 09/02/20 tablet atorvastatin 40 mg PO QAM 08/18/20 09/02/20 docusate sodium [Colace] 100 mg PO QPM 08/18/20 09/02/20 enoxaparin 140 mg SUBCUT QAM 08/18/20 09/02/20 ergocalciferol (vitamin D2) 1,250 mcg PO WK 08/18/20 09/02/20 [Vitamin D2] lorazepam 0.5 mg PO Q6H PRN 08/18/20 09/02/20 polyethylene glycol 3350 [Miralax] 17 g PO BIDM 08/18/20 09/02/20 promethazine 25 mg PO BID PRN 08/18/20 09/02/20 methadone 5 mg tablet 5 mg PO [facility] tab 08/29/20 09/02/20 Previous Rx's Medication Instructions Recorded gabapentin 800 mg tablet 800 mg PO TID #90 tab 04/10/20 pantoprazole 40 mg PO QAM 30 Days #30 tab 05/15/20 naloxone 4 mg/actuation nasal spray 4 mg INTRANASAL Q2M PRN #2 ea 06/24/20 lorazepam 2 mg PO HS #30 tab 08/23/20 hydromorphone 4 mg tablet 4 mg PO Q4H PRN #60 tab 08/27/20 fentanyl 25 mcg/hr transdermal 1 patch TRANSDERMAL Q72H #10 ea 08/28/20 patch fentanyl 50 mcg/hr transdermal 50 mcg TRANSDERMAL Q72H #10 ea 08/28/20 patch Results & Data (ED) Vital Signs Vital Signs - 24 hr 09/02/20 13:45 09/02/20 14:43 09/02/20 16:30 Temperature 36.4 C L Temperature Source Temporal Artery Scan Pulse Rate 90 74 Pulse Rate [Apical] 74 Pulse Rate from SpO2 Sensor 74 Pulse Rhythm Regular Pulse Rhythm [Apical] Regular Pulse Strength Normal Pulse Strength [Apical] Normal Respiratory Rate 18 16 Respiratory Effort / Characteristics Non-Labored Spontaneous Non-Labored Spontaneous Respiratory Depth Normal Normal Respiratory Pattern Regular Blood Pressure 127/72 124/65 Blood Pressure [Left Arm] 124/65 Blood Pressure Mean 90 84 Blood Pressure Mean [Left Arm] 84 Blood Pressure Position Sitting Blood Pressure Position [Left Arm] Lying Pulse Oximetry 96 99 99 Oxygen Delivery Method Room Air Room Air Room Air Sepsis Recent Fever Within 48 Hours No Sepsis New/Unexplained Change in Mental Status No Sepsis Action Taken by Nursing No Action Required 09/02/20 17:37 09/02/20 18:00 Temperature Temperature Source Pulse Rate 78 77 Pulse Rate [Apical] Pulse Rate from SpO2 Sensor 77 Pulse Rhythm Pulse Rhythm [Apical] Pulse Strength Pulse Strength [Apical] Respiratory Rate 22 15 Respiratory Effort / Characteristics Respiratory Depth Respiratory Pattern Blood Pressure 108/64 110/62 Blood Pressure [Left Arm] Blood Pressure Mean 78 78 Blood Pressure Mean [Left Arm] Blood Pressure Position Blood Pressure Position [Left Arm] Pulse Oximetry 99 98 Oxygen Delivery Method Sepsis Recent Fever Within 48 Hours Sepsis New/Unexplained Change in Mental Status Sepsis Action Taken by Nursing Laboratory Data Attestation: I reviewed the patient's lab results. Result diagrams: 09/02/20 15:38 09/02/20 15:38 Lab Results 09/02/20 09/02/20 09/02/20 Range/Units 15:38 15:38 15:38 WBC 1.54 L (4.8-10.8) K/uL RBC 3.54 L (4.2-5.4) M/uL Hgb 9.9 L (12.0-16.0) g/dL Hct 31.2 L (37-47) % MCV 88.1 (80-100) fL MCH 28.0 (25-34) pg MCHC 31.7 L (32-36) g/dL RDW Std Deviation 51.1 H (36.4-46.3) fL RDW Coeff of Natali 15.8 H (11.5-14.5) % Plt Count 202 (130-400) K/uL MPV 11.5 H (7.4-10.4) fL Immature Gran % (Auto) 0.6 % Neut % (Auto) 39.7 % Lymph % (Auto) 45.5 % [place] % (Auto) 9.1 % Eos % (Auto) 3.2 % Baso % (Auto) 1.9 % Neut # (Auto) 0.61 L* (1.4-6.5) K/uL Lymph # (Auto) 0.70 L (1.2-3.4) K/uL [place] # (Auto) 0.14 (0.11-0.59) K/uL Eos # (Auto) 0.05 (0-0.5) K/uL Baso # (Auto) 0.03 (0-0.2) K/uL Immature Gran # (Auto) 0.01 (0.00-0.02) K/uL Giant Platelets 2+ ESR (0-30) mm/hr PT 10.7 (9.0-12.0) Seconds INR 1.1 (0.9-1.1) APTT 33.0 H (21.0-31.0) Seconds PTT Ratio 1.3 Sodium 140 (136-145) mmol/L Potassium 3.7 (3.5-5.1) mmol/L Chloride 106 (98-107) mmol/L Carbon Dioxide 28 (21-32) mmol/L Anion Gap 6.0 (3-11) BUN 8 (7-18) mg/dl Creatinine 0.63 (0.6-1.2) mg/dl Est Cr Clr Drug Dosing 98.0 ml/min Est GFR ( Amer) 113.8 ml/min Est GFR (Non-Af Amer) 98.2 ml/min BUN/Creatinine Ratio 12.8 (10-20) Glucose 71 (70-99) mg/dl Lactate (0.4-2.0) mmol/L Calcium 9.2 (8.5-10.1) mg/dl Phosphorus 3.6 (2.5-4.9) mg/dl Magnesium 2.0 (1.8-2.4) mg/dl Total Bilirubin 0.3 (0.2-1) mg/dl Direct Bilirubin 0.1 (0-0.2) mg/dl AST 22 (15-37) U/L ALT 27 (12-78) U/L Alkaline Phosphatase 96 (45-117) U/L Total Creatine Kinase 45 (26-192) U/L C-Reactive Protein < 0.29 (0-0.29) mg/dl Total Protein 6.4 (6.4-8.2) gm/dl Albumin 3.6 (3.4-5.0) gm/dl Globulin 2.8 (2.5-4.0) gm/dl Albumin/Globulin Ratio 1.3 (0.9-2) Procalcitonin (0-0.5) ng/ml COVID-19 Eval Order SARS-CoV-2 (PCR) (Negative) 09/02/20 09/02/20 09/02/20 Range/Units 15:38 15:38 15:38 WBC (4.8-10.8) K/uL RBC (4.2-5.4) M/uL Hgb (12.0-16.0) g/dL Hct (37-47) % MCV (80-100) fL MCH (25-34) pg MCHC (32-36) g/dL RDW Std Deviation (36.4-46.3) fL RDW Coeff of Natali (11.5-14.5) % Plt Count (130-400) K/uL MPV (7.4-10.4) fL Immature Gran % (Auto) % Neut % (Auto) % Lymph % (Auto) % [place] % (Auto) % Eos % (Auto) % Baso % (Auto) % Neut # (Auto) (1.4-6.5) K/uL Lymph # (Auto) (1.2-3.4) K/uL [place] # (Auto) (0.11-0.59) K/uL Eos # (Auto) (0-0.5) K/uL Baso # (Auto) (0-0.2) K/uL Immature Gran # (Auto) (0.00-0.02) K/uL Giant Platelets ESR 20 (0-30) mm/hr PT (9.0-12.0) Seconds INR (0.9-1.1) APTT (21.0-31.0) Seconds PTT Ratio Sodium (136-145) mmol/L Potassium (3.5-5.1) mmol/L Chloride (98-107) mmol/L Carbon Dioxide (21-32) mmol/L Anion Gap (3-11) BUN (7-18) mg/dl Creatinine (0.6-1.2) mg/dl Est Cr Clr Drug Dosing ml/min Est GFR ( Amer) ml/min Est GFR (Non-Af Amer) ml/min BUN/Creatinine Ratio (10-20) Glucose (70-99) mg/dl Lactate 1.1 (0.4-2.0) mmol/L Calcium (8.5-10.1) mg/dl Phosphorus (2.5-4.9) mg/dl Magnesium (1.8-2.4) mg/dl Total Bilirubin (0.2-1) mg/dl Direct Bilirubin (0-0.2) mg/dl AST (15-37) U/L ALT (12-78) U/L Alkaline Phosphatase (45-117) U/L Total Creatine Kinase (26-192) U/L C-Reactive Protein (0-0.29) mg/dl Total Protein (6.4-8.2) gm/dl Albumin (3.4-5.0) gm/dl Globulin (2.5-4.0) gm/dl Albumin/Globulin Ratio (0.9-2) Procalcitonin < 0.05 (0-0.5) ng/ml COVID-19 Eval Order SARS-CoV-2 (PCR) (Negative) 09/02/20 09/02/20 Range/Units 15:50 15:50 WBC (4.8-10.8) K/uL RBC (4.2-5.4) M/uL Hgb (12.0-16.0) g/dL Hct (37-47) % MCV (80-100) fL MCH (25-34) pg MCHC (32-36) g/dL RDW Std Deviation (36.4-46.3) fL RDW Coeff of Natali (11.5-14.5) % Plt Count (130-400) K/uL MPV (7.4-10.4) fL Immature Gran % (Auto) % Neut % (Auto) % Lymph % (Auto) % [place] % (Auto) % Eos % (Auto) % Baso % (Auto) % Neut # (Auto) (1.4-6.5) K/uL Lymph # (Auto) (1.2-3.4) K/uL [place] # (Auto) (0.11-0.59) K/uL Eos # (Auto) (0-0.5) K/uL Baso # (Auto) (0-0.2) K/uL Immature Gran # (Auto) (0.00-0.02) K/uL Giant Platelets ESR (0-30) mm/hr PT (9.0-12.0) Seconds INR (0.9-1.1) APTT (21.0-31.0) Seconds PTT Ratio Sodium (136-145) mmol/L Potassium (3.5-5.1) mmol/L Chloride (98-107) mmol/L Carbon Dioxide (21-32) mmol/L Anion Gap (3-11) BUN (7-18) mg/dl Creatinine (0.6-1.2) mg/dl Est Cr Clr Drug Dosing ml/min Est GFR ( Amer) ml/min Est GFR (Non-Af Amer) ml/min BUN/Creatinine Ratio (10-20) Glucose (70-99) mg/dl Lactate (0.4-2.0) mmol/L Calcium (8.5-10.1) mg/dl Phosphorus (2.5-4.9) mg/dl Magnesium (1.8-2.4) mg/dl Total Bilirubin (0.2-1) mg/dl Direct Bilirubin (0-0.2) mg/dl AST (15-37) U/L ALT (12-78) U/L Alkaline Phosphatase (45-117) U/L Total Creatine Kinase (26-192) U/L C-Reactive Protein (0-0.29) mg/dl Total Protein (6.4-8.2) gm/dl Albumin (3.4-5.0) gm/dl Globulin (2.5-4.0) gm/dl Albumin/Globulin Ratio (0.9-2) Procalcitonin (0-0.5) ng/ml COVID-19 Eval Order Covid19 at [facility] SARS-CoV-2 (PCR) NEGATIVE (Negative) Administered Medications Buspirone HCl (Buspirone 15 Mg Tab) 30 mg PO HS NEELA Stop: 10/02/20 21:17 Last Admin: 09/02/20 22:37 Dose: 30 mg Documented by: [id number] Docusate Sodium (Docusate Sodium 100 Mg Cap) 100 mg PO DAILY@1600 NEELA Stop: 10/02/20 21:17 Last Admin: 09/02/20 22:37 Dose: 100 mg Documented by: [id number] Gabapentin (Gabapentin 800 Mg Tab) 800 mg PO TID NEELA Stop: 10/02/20 21:17 Last Admin: 09/02/20 22:37 Dose: 800 mg Documented by: [id number] Hydromorphone HCl (Hydromorphone Hcl 2 Mg Tab) 4 mg PO Q4H PRN PRN Reason: Pain Stop: 09/16/20 21:55 Last Admin: 09/02/20 22:41 Dose: 4 mg Documented by: [id number] Discontinued Medications Hydromorphone HCl (Hydromorphone Inj 1 Mg/Ml Syringe) 1 mg IV NOW STA Stop: 09/02/20 20:13 Last Admin: 09/02/20 20:29 Dose: 1 mg Documented by: [id number] Sodium Chloride (Nss) 500 mls @ 999 mls/hr IV .Q31M ONE Stop: 09/02/20 15:18 Last Infusion: 09/02/20 16:28 Dose: 0 mls/hr Documented by: [id number] Admin: 09/02/20 15:52 Dose: 999 mls/hr Documented by: [id number] Acetaminophen (Ofirmev) 1,000 mg in 100 mls @ 400 mls/hr IV NOW STA Stop: 09/02/20 15:02 Last Infusion: 09/02/20 16:28 Dose: 0 mls/hr Documented by: [id number] Admin: 09/02/20 15:52 Dose: 400 mls/hr Documented by: [id number] Ceftriaxone Sodium (Rocephin) 2,000 mg in 70 mls @ 140 mls/hr IV NOW STA Stop: 09/02/20 17:30 Last Infusion: 09/02/20 18:16 Dose: 0 mls/hr Documented by: [id number] Admin: 09/02/20 17:36 Dose: 140 mls/hr Documented by: [id number] Vancomycin HCl 2,000 mg/ (Sodium Chloride) 540 mls @ 200 mls/hr IV NOW ONE Stop: 09/02/20 19:42 Last Infusion: 09/02/20 21:20 Dose: 0 mls/hr Documented by: [id number] Admin: 09/02/20 18:15 Dose: 200 mls/hr Documented by: [id number] Morphine Sulfate (Morphine Sulfate 2 Mg/Ml Carp) 2 mg IV NOW STA Stop: 09/02/20 14:49 Last Admin: 09/02/20 15:51 Dose: 2 mg Documented by: [id number] Imaging Data Radiologist's Impression: Chest X-Ray 09/02/20 14:43 XR chest 1V portable HISTORY: SEPSIS COMPARISON: Chest 08/22/2020. FINDINGS: No pneumothorax. No pleural effusions. Chronic elevation of the left hemidiaphragm with a left basilar linear densities. This favors subsegmental atelectasis. This is unchanged compared the prior study. The right lung is essentially clear. There are poststernotomy changes. Left subclavian Port-A-Cath terminates at the SVC. IMPRESSION: No significant change compared to the prior study. No acute process. Chronic elevation of the left hemidiaphragm is again noted. ACT 112: Negative or not required by law. Electronically signed by: Joshua Jacobo M.D. 09/02/2020 4:14 PM Ankle X-Ray 09/02/20 14:50 XR ankle RT min 3V routine, XR foot RT min 3V routine CLINICAL HISTORY: Right ankle and foot pain. Swelling. COMPARISON STUDY: Right ankle 08/16/2020. FINDINGS: Progressive moderate soft tissue swelling within the right ankle. No acute fracture or dislocation. Plantar heel spur is again noted. There is also soft tissue swelling within the right foot. IMPRESSION: Diffuse soft tissue swelling within the right ankle and foot. No fractures. ACT 112: Negative or not required by law. Electronically signed by: Joshua Jacobo M.D. 09/02/2020 4:20 PM Foot X-Ray 09/02/20 14:50 XR ankle RT min 3V routine, XR foot RT min 3V routine CLINICAL HISTORY: Right ankle and foot pain. Swelling. COMPARISON STUDY: Right ankle 08/16/2020. FINDINGS: Progressive moderate soft tissue swelling within the right ankle. No acute fracture or dislocation. Plantar heel spur is again noted. There is also soft tissue swelling within the right foot. IMPRESSION: Diffuse soft tissue swelling within the right ankle and foot. No fractures. ACT 112: Negative or not required by law. Electronically signed by: Joshua Jacobo M.D. 09/02/2020 4:20 PM Venous Doppler Study 09/02/20 14:50 RIGHT LOWER EXTREMITY VENOUS DOPPLER CLINICAL HISTORY: panc ca, RLE swelling COMPARISON STUDY: No previous studies for comparison. TECHNIQUE: Sonography of the deep venous system of the right lower extremity was performed. Compression and augmentation were evaluated. FINDINGS: The right common femoral, superficial femoral and popliteal veins were compressible. Augmentation was normal. Flow was shown within the deep calf vessels. Incidental note is made of a 2.5 x 1.2 x 0.6 cm right popliteal cyst. IMPRESSION: 1. No evidence of deep venous thrombus within the right lower extremity. 2. Small right popliteal cyst. ACT 112: Negative or not required by law. Electronically signed by: Rylan Carranza M.D. 09/02/2020 5:14 PM Discharge Plan Visit Data Chief Complaint: Swelling/Edema to Extremity Stated Complaint: SWOLLEN RIGHT FOOT ED Provider: Beto Jacobs Discharge Problem: Neutropenia associated with infection, Cellulitis of foot, right, Pancreatic cancer, Metastatic disease Patient Disposition: Admitted As Inpatient Discharge Instructions Interventions: ED Discharge Assessment Last Done: 09/02/20 21:55
--- NOTE | 2020-09-02 18:17 | History & Physical Report ---
Date of Service September 02, 2020 Assessment & Plan (1) Cellulitis of leg, right: Prior recurrence of cellulitis previous her last admission resolved last admission with IV vancomycin administered ceftriaxone and vancomycin in the emergency department cultures obtained and pending. Interestingly any infectious inflammatory markers are negative however she does have a low white count which could influence some of this. Likewise a DVT was ruled out given her hypercoagulable state in that leg. Plain radiography did not show any changes in bones fractures or concern for osteomyelitis of the ankle or foot. We will continue vancomycin solo at this time unless her erythema becomes worse that she responded dramatically with her last visit to just vancomycin. After her last visit she was discharged on Augmentin (2) Neutropenia associated with infection: Patient reportedly had chemotherapy last week with Dr. Lara. She or her sister do not recall ever being on Neupogen or Neulasta. She typically has flareups of lower extremity erythema after wards which is associate with her neutropenia.. We will continue to watch CBC with differential may consider consulting Dr. 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 It is felt this is the etiology of some of her abdominal pain however her pain is also related to pancreatic metastatic disease (4) Chronic pain due to neoplasm: Patient on a complex pain medication regiment managed by palliative care, at the time of her last discharge her medications were also adjusted, she is on fentanyl 75 mcg patch every 72, hydromorphone 4 mg p.o. routinely every 4 hours, and during her last admission her methadone was increased from 2.5 twice daily to 5 twice daily. She remains on gabapentin as her previous dose (5) Depression: Significant situational depression, she was seen by psychiatric care during her last admission which was reluctant to start an antidepressant but adjusted her ativan to try to promote better sleeping (6) Diabetes: Her last A1c checked was 6 Metformin was recommended to be discontinued and dietary restriction was encouraged however the patient typically follows on a regular diet (7) DVT prophylaxis: Patient is on daily Lovenox 140 mg subcu for both prophylaxis and treatment of her various mesenteric thromboses Patient confirms she is a full code History of Present Illness Primary Care Provider: 60-year-old woman with a past medical history of metastatic pancreatic cancer who presents emergency department with fevers and chills that began on Wednesday with a recurrence of her right foot and ankle swelling and redness and pain in the setting of being admitted to [facility] from 08/18-08/23 for similar symptoms treated for cellulitis in the setting of being neutropenic. Initially the patient told the emergency room provider that she did not have chemotherapy however upon further questioning in the presence of her sister she confirms that she did have chemotherapy last week with outpatient [facility] through Dr. Lara. This is typical for her time course after chemotherapy to develop some peripheral cellulitis associate with neutropenia. She denies nause a, vomiting, diarrhea or urinary symptoms. The patient is chronically ill-appearing, but no acute distress, afebrile with stable vital signs. She has 1+ pitting edema to the right foot and ankle with mild erythema and warmth of the dorsum of the foot. WBC 1.5K with neutropenia with ANC 0.61 Chemistry without metabolic acidosis. Lactate 1.1, within normal limits. LFTs and electrolytes unremarkable. CRP and ESR within normal limits. COVID-19 PCR was negative. Procalcitonin is not elevated. Films of the right foot and ankle negative for acute fracture or osseous involvement. Right lower extremity ultrasound negative for DVT. Incidental note is made of right popliteal cyst. Given the patient's report of fevers for the past several days in the setting of her neutropenia she agrees with plan for admission for IV antibiotics. Allergies Allergy/AdvReac Type Severity Reaction Status Date / Time latex Allergy Intermediate rash Verified 08/29/20 13:03 sulfamethoxazole Allergy Intermediate itching, Verified 08/29/20 13:03 chest tightness trimethoprim Allergy Intermediate itching, Verified 08/29/20 13:03 chest tightness adhesive Allergy Unknown ITCHY SKIN Verified 08/29/20 13:03 clindamycin AdvReac Severe Diarrhea Verified 08/29/20 13:03 doxycycline AdvReac Intermediate nausea and Verified 08/29/20 13:03 vomiting Home Medications Medication Instructions Recorded Confirmed Type multivitamin 1 tab PO QAM 10/26/18 09/02/20 History gabapentin 800 mg tablet 800 mg PO TID #90 tab 04/10/20 09/02/20 Rx buspirone 30 mg PO HS 04/16/20 09/02/20 History pantoprazole 40 mg PO QAM 30 Days #30 tab 05/15/20 09/02/20 Rx acetaminophen [Tylenol Extra 1,000 mg PO DIRECTED PRN 06/12/20 09/02/20 History Strength] naloxone 4 mg/actuation nasal spray 4 mg INTRANASAL Q2M PRN #2 ea 06/24/20 09/02/20 Rx ondansetron HCl 8 mg tablet 8 mg PO Q8H PRN 08/01/20 09/02/20 History prochlorperazine maleate 10 mg 10 mg PO Q6H PRN 08/01/20 09/02/20 History tablet atorvastatin 40 mg PO QAM 08/18/20 09/02/20 History docusate sodium [Colace] 100 mg PO QPM 08/18/20 09/02/20 History enoxaparin 140 mg SUBCUT QAM 08/18/20 09/02/20 History ergocalciferol (vitamin D2) 1,250 mcg PO WK 08/18/20 09/02/20 History [Vitamin D2] lorazepam 0.5 mg PO Q6H PRN 08/18/20 09/02/20 History polyethylene glycol 3350 [Miralax] 17 g PO BIDM 08/18/20 09/02/20 History promethazine 25 mg PO BID PRN 08/18/20 09/02/20 History lorazepam 2 mg PO HS #30 tab 08/23/20 09/02/20 Rx hydromorphone 4 mg tablet 4 mg PO Q4H PRN #60 tab 08/27/20 09/02/20 Rx fentanyl 25 mcg/hr transdermal 1 patch TRANSDERMAL Q72H #10 ea 08/28/20 09/02/20 Rx patch fentanyl 50 mcg/hr transdermal 50 mcg TRANSDERMAL Q72H #10 ea 08/28/20 09/02/20 Rx patch methadone 5 mg tablet 5 mg PO AMHS tab 08/29/20 09/02/20 History Past Med/Surg History Medical History (Updated 09/02/20 @ 18:29 by Louis Saavedra MD) Abdominal pain Acute pancreatitis Cellulitis of leg, right Constipation Diabetes Headache History of uterine fibroid Hyperlipidemia Hypertension Intractable vomiting Iron deficiency anemia Migraine (09/09/12) Nausea & vomiting Pancreatic duct stricture Pancreatitis, acute Panic attack (09/09/12) PMB (postmenopausal bleeding) Restless legs syndrome Superior mesenteric vein thrombosis Thrombus Surgical History 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 Umanzor 07/10/2020 S/P surgical removal of pilonidal cyst Family History Sister Endometrial cancer Arthritis Celiac disease Hypertension Diabetes Mother Hypertension Congestive heart failure (CHF) Kidney failure Heart disease Father Parkinson disease Myocardial infarction Graves disease Skin cancer Denies family history of Ovarian cancer Prostate cancer Breast cancer Colorectal cancer Social History Smoking Status: Never smoker Tobacco Type: Cigarettes Age Started Using Tobacco: 21; Age Quit Using Tobacco: 58; packs per day: 1; Years Smoked: 37; Cigarettes Per Day: 2; Number of Years Since Quit: 1; Second Hand Exposure: No; Hx Alcohol Use: No Hx Substance Use: No Preferred Language: Malawian Communication Ability: Effective Visual Impairment: No Limitations Hearing Ability: Normal Web Site Project Manager Required: No Beliefs That Will Affect Care: None marital status: Single Current Living Situation: Family Current Living Situation Comment: with sister current occupational status: disabled Feels Safe at Home: Yes Childhood Exposure to Second-Hand Smoke: No Dental Care, Regularly: No Physical Activity Frequency: Does not Exercise Seatbelt Use: always Sunscreen Use: Yes Assistive Devices: None Review of Systems Review of Systems: Mild distress and fatigue no headache, blurry or double vision no speech or swallowing issues no chest pain, pressure or palpitations no shortness of breath, cough or wheezes no abdominal pain, nausea or vomiting, diarrhea or constipation no dysuria, hematuria or frequency Right leg pain and swelling distally no back pain, CVA tenderness or radicular pain Minor redness and increased swelling to her right lower ankle and foot no focal signs of weakness or numbness or altered sensation no complaints of anxiety or depression.. Physical Exam Physical Exam: The patient appeared well nourished and normally developed. Vital signs as documented. Head exam is normocephalic atraumatic she is with alopecia very little hair Neck is without JVD, thyromegaly, or carotid bruits. Lungs are clear to auscultation exception of absent breath sounds to her left base, where she has chronic elevation of her left hemidiaphragm Cardiac exam, Rhythm is regular.. No murmurs, rubs or gallops. Abdominal exam reveals normal bowel sounds, soft non tender, no masses Right lower extremity is with 1+ edema that is pitting it is minorly erythematous it is slightly tender to touch it is not warm to touch there is no portal of entry noted on any of her skin Neurologic exam is alert and oriented, no focal loss of strength or sensation Skin is without bruises or rashes Psychologically is with concerns for anxiety & depression she however is very forgetful and I believe his difficulty grasping the gravity of the situation of her metastatic pancreatic cancer Results & Data Results & Data ([facility]) Vital Signs (Past 12 Hours) Vital Signs Temp Pulse Pulse Resp BP BP Pulse Ox 09/02/20 16:30 74 15 124/65 99 09/02/20 14:43 99 09/02/20 13:45 97.5 F L 90 18 127/72 96 PG Care Time/CCT Total # of Minutes Spent Total Time Spent with Patient: Total time spent is greater than 50% in coordination of care (as documented) at patient's floor/unit and/or counseling patient: Coding Level of Care Code 93723 Initial Inpt Care Lvl 3 Diagnoses Cellulitis of leg, right L03.115 Neutropenia associated with infection D70.3 Superior mesenteric vein thrombosis K55.069 Chronic pain due to neoplasm G89.3 Depression F32.9 Diabetes E11.9 DVT prophylaxis Z29.9
[2020-09-02] MEDS ORDERED: HYDROmorphone INJ 1 MG/ML SYRINGE IV STA (20:12)
[2020-09-02] MEDS ORDERED: LORazepam 0.5 MG TAB PO PRN (21:18)
[2020-09-02] MEDS ORDERED: ONDANSETRON INJ 2 MG/ML 2 ML VIAL IV PRN ×2 (21:18)
[2020-09-02] MEDS ORDERED: PROCHLORPERAZINE MALEATE 10 MG TAB PO PRN (21:18)
[2020-09-02] MEDS ORDERED: fentaNYL 25 MCG/HR TDSY TD SCH (21:18)
[2020-09-02] MEDS ORDERED: METHADONE HCL 5 MG TAB PO SCH (21:18)
[2020-09-02] MEDS ORDERED: NON-FORMULARY MEDICATION (Naloxone [Narcan] 4 mg/actuation spray,non-aerosol) INTNAS PRN (21:18)
[2020-09-02] MEDS ORDERED: LORazepam 0.5 MG/1 ML VIAL IV PRN (21:18)
[2020-09-02] MEDS ORDERED: ONDANSETRON 4 MG OD TAB SL PRN (21:18)
[2020-09-02] MEDS ORDERED: LORazepam 1 MG TAB PO PRN (21:42)
[2020-09-02] MEDS ORDERED: NALOXONE HCL 0.4 MG/1 ML VIAL/CARP IV PRN (22:05)
[2020-09-02] MEDS: busPIRone 15 MG TAB PO SCH (22:37)
[2020-09-02] MEDS: GABAPENTIN 800 MG TAB PO SCH (22:37)
[2020-09-02] MEDS: DOCUSATE SODIUM 100 MG CAP PO SCH (22:37)
[2020-09-02] MEDS: HYDROmorphone HCL 2 MG TAB PO PRN (22:41)
[2020-09-02] MEDS ORDERED: Nursing to Pharmacy Communication SCH (23:00)
[2020-09-03] MEDS: CHECK fentaNYL PATCH PLACEMENT SCH ×4 (00:28→22:34)
[2020-09-03] MEDS: LORazepam 1 MG TAB PO SCH ×2 (00:28→20:12)
[2020-09-03 00:39] LABS: Appearance Urine Clear (Clear); Bilirubin Urine Negative (Negative); Blood Urine Negative (Negative); Color Urine Yellow; Glucose Urine UA Negative (Negative); Ketones Urine Negative (Negative); Leukocyte Esterase Urine Negative (Negative); Nitrite Urine Negative (Negative); Protein Urine Negative (Negative); Urobilinogen Urine Negative (Negative)
[2020-09-03] MEDS: PROMETHAZINE HCL 25 MG TAB PO PRN (00:48)
--- NOTE | 2020-09-03 01:32 | Communication Note ---
Date of Service: September 03, 2020 Message from nursing that comfort care orders are placed concurrently with being Full Code. Review of chart shows patient follows with Dr. Humphrey with Palliative Care in outpatient setting for symptom management of metastatic pancreatic cancer. Last note discussing Code Status is from Dr. Humphrey on 08/22 where patient wants to proceed with treatment and be full code at that time. H&P from Dr. Saavedra today mentions her being okay with treatment of her cellulitis, unsure if she was hospice care at home/has a POLST form.
[2020-09-03] MEDS: VANCOMYCIN HCL 1,250 MG in SODIUM CHLORIDE 0.9% 250 ML IV SCH ×2 (05:34→18:34)
[2020-09-03] MEDS: HYDROmorphone HCL 2 MG TAB PO PRN ×4 (05:34→20:12)
[2020-09-03] MEDS: PANTOprazole 40 MG TAB PO SCH (07:41)
[2020-09-03] MEDS: GABAPENTIN 800 MG TAB PO SCH ×3 (07:41→20:13)
[2020-09-03] MEDS: MULTIVITAMIN TAB PO SCH (07:42)
[2020-09-03] MEDS: ENOXAPARIN 150 MG/ML SYR SQ SCH (07:42)
[2020-09-03] MEDS: POLYETHYLENE (MIRALAX) 17 GM PACK PO SCH ×2 (07:49→16:30)
[2020-09-03 08:15] LABS: BUN Creatinine Ratio 11.8 (10-20); Calcium 7.8 mg/dl (8.5-10.1); Creatinine Clr Calc Pharmacy 108.3 ml/min; Est GFR (African American) 117.6 ml/min; Est GFR (Non-African American) 101.5 ml/min; Potassium 3.9 mmol/L (3.5-5.1)
[2020-09-03 08:22] LABS: ALC (manual) 0.65 K/uL (1.2-3.4); ANC (manual) 0.18 K/uL (1.4-6.5); Basophils # (manual) 0.05 K/uL (0-0.2); Basophils % (manual) 5.3 %; Eosinophils # (manual) 0.04 K/uL (0-0.5); Eosinophils % (manual) 4.4 %; Hematocrit (blood only) 28.1 % (37-47); Hemoglobin 8.7 g/dL (12.0-16.0); Lymphocytes # (manual) 0.41 K/uL (1.2-3.4); Lymphocytes % (manual) 42.5 %; Mean Corpuscular Hemoglobin 27.8 pg (25-34); Mean Corpuscular Volume 89.8 fL (80-100); Mean Platelet Volume 11.9 fL (7.4-10.4); Monocytes # (manual) 0.04 K/uL (0.11-0.59); Monocytes % (manual) 4.4 %; Neutrophils # (manual) 0.18 K/uL (1.4-6.5); Neutrophils % (manual) 18.6 %; Platelet Count 154 K/uL (130-400); RDW Coefficient of Variation 15.9 % (11.5-14.5); RDW Standard Deviation 52.1 fL (36.4-46.3); Reactive Lymphocytes # (manual) 0.24 K/uL; Reactive Lymphocytes % (manual) 24.8 %; Red Blood Count 3.13 M/uL (4.2-5.4); White Blood Count 0.96 K/uL (4.8-10.8)
[2020-09-03] MEDS: METHADONE HCL 5 MG TAB PO SCH ×2 (09:06→21:33)
--- NOTE | 2020-09-03 09:47 | Pharmacy Report ---
Pharmacy Abx Dose Short Note - Date of Service September 03, 2020 - Assessment & Plan Assessment 60 year old F admitted yesterday secondary to fever and chills. * PMHx significant for metastatic pancreatic cancer. Most recent chemotherapy treatment was last week. She has a history of cellulitis of right leg. * Afebrile but severe neutropenia, ANC 180 today. Cultures pending. * Reasonable to continue Vancomycin for now Plan Vancomycin * Loading dose: 2000 mg (25 mg/kg) x 1 * Maintenance dose: 1250 mg (15 mg/kg) IV every 12 hours * Goal trough is 15-20 mcg/mL * Trough ordered for tomorrow morning Pharmacy will continue to follow and will adjust dose/frequency as necessary. Thank you.
--- NOTE | 2020-09-03 12:18 | Electrocardiogram Report ---
Test Reason : Blood Pressure : / mmHG Vent. Rate : 073 BPM Atrial Rate : 073 BPM P-R Int : 112 ms QRS Dur : 082 ms QT Int : 398 ms P-R-T Axes : 047 016 027 degrees QTc Int : 438 ms Normal sinus rhythm Normal ECG When compared with ECG of 18-AUG-2020 19:22, No significant change was found Confirmed by Wyatt Cueto ([id number]) on 09/03/2020 12:17:46 PM Referred By: REFERRED SELF Confirmed By:Chavez Cueto
--- NOTE | 2020-09-03 13:00 | Palliative Care Consultation ---
Date of Consultation September 03, 2020 Assessment & Plan (1) Palliative care encounter: Miracle has been very labile. She is laughing and tearful in the same visit. She has talked openly about concerns about not being around in the fall for family events and then alternately tells me that she is planning a trip to [facility] with friends in 2021. She does understand the severity of her disease, particular with her current neutropenia and infection. She is clear however that she wants to "keep fighting". Her goal has been to travel to [place] where she used to live to visit friends. At this time she does want to remain a full code. (2) Pancreatic cancer: (3) Abdominal pain: Neuropathic. Increase methadone to 5mg TID. Continue adjuvant gabapentin as well as fentanyl and hydromorphone. (4) Cellulitis of foot, right: (5) Constipation: This has been a chronic problem for her. Continue miralax BID. (6) Diabetes: (7) Depression: She has had difficult time with her diagnosis, has lost the cat that gave her comfort and has had her medications adjusted by her psychiatrist. She does follow with them regularly and had been considering bupropion. (8) Thrombus: History of Present Illness Reason for Consultation: pain management Requesting Physician: Dr. Saavedra Attending Physician: Dhaval Arriaga History of Present Illness 60 yo lady with pancreatic cancer who has been receiving chemotherapy through [facility]. She was hospitalized recently with right LE cellulitis that resolved and was discharged on oral augmentin. She completed oral therapy and had been doing well as of last when she was seen by me as an outpatient for palliative care visit. She notes that since that time, she had temp to 100.4 with chills which she thought had resolved. She noticed increased swelling and pain in her right foot and presented to ER. Doppler was negative for DVT. She is admitted for recurrent cellulitis. She complains of pain in her right foot and ankle that is sensitive to touch in addition to her ongoing abdominal pain. She has been on fentanyl, hydromorphone and methadone for her abdominal pain. She did have a celiac plexus block shortly after diagnosis which was effective but has been unable to have any further procedures due to thrombus and anticoagulation. Allergies Allergy/AdvReac Type Severity Reaction Status Date / Time latex Allergy Intermediate rash Verified 08/29/20 13:03 sulfamethoxazole Allergy Intermediate itching, Verified 08/29/20 13:03 chest tightness trimethoprim Allergy Intermediate itching, Verified 08/29/20 13:03 chest tightness adhesive Allergy Unknown ITCHY SKIN Verified 08/29/20 13:03 clindamycin AdvReac Severe Diarrhea Verified 08/29/20 13:03 doxycycline AdvReac Intermediate nausea and Verified 08/29/20 13:03 vomiting Home Medications Medication Instructions Recorded Confirmed Type multivitamin 1 tab PO QAM 10/26/18 09/02/20 History gabapentin 800 mg tablet 800 mg PO TID #90 tab 04/10/20 09/02/20 Rx buspirone 30 mg PO HS 04/16/20 09/02/20 History pantoprazole 40 mg PO QAM 30 Days #30 tab 05/15/20 09/02/20 Rx acetaminophen [Tylenol Extra 1,000 mg PO DIRECTED PRN 06/12/20 09/02/20 History Strength] naloxone 4 mg/actuation nasal spray 4 mg INTRANASAL Q2M PRN #2 ea 06/24/20 09/02/20 Rx ondansetron HCl 8 mg tablet 8 mg PO Q8H PRN 08/01/20 09/02/20 History prochlorperazine maleate 10 mg 10 mg PO Q6H PRN 08/01/20 09/02/20 History tablet atorvastatin 40 mg PO QAM 08/18/20 09/02/20 History docusate sodium [Colace] 100 mg PO QPM 08/18/20 09/02/20 History enoxaparin 140 mg SUBCUT QAM 08/18/20 09/02/20 History ergocalciferol (vitamin D2) 1,250 mcg PO WK 08/18/20 09/02/20 History [Vitamin D2] lorazepam 0.5 mg PO Q6H PRN 08/18/20 09/02/20 History polyethylene glycol 3350 [Miralax] 17 g PO BIDM 08/18/20 09/02/20 History promethazine 25 mg PO BID PRN 08/18/20 09/02/20 History lorazepam 2 mg PO HS #30 tab 08/23/20 09/02/20 Rx hydromorphone 4 mg tablet 4 mg PO Q4H PRN #60 tab 08/27/20 09/02/20 Rx fentanyl 25 mcg/hr transdermal 1 patch TRANSDERMAL Q72H #10 ea 08/28/20 09/02/20 Rx patch fentanyl 50 mcg/hr transdermal 50 mcg TRANSDERMAL Q72H #10 ea 08/28/20 09/02/20 Rx patch methadone 5 mg tablet 5 mg PO AMHS tab 08/29/20 09/02/20 History Patient History Medical History Abdominal pain Acute pancreatitis Cellulitis of leg, right Constipation Diabetes Headache History of uterine fibroid Hyperlipidemia Hypertension Intractable vomiting Iron deficiency anemia Migraine (09/09/12) Nausea & vomiting Pancreatic duct stricture Pancreatitis, acute Panic attack (09/09/12) PMB (postmenopausal bleeding) Restless legs syndrome Superior mesenteric vein thrombosis Thrombus Surgical History 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 Umanzor 07/10/2020 S/P surgical removal of pilonidal cyst Family History Sister Endometrial cancer Arthritis Celiac disease Hypertension Diabetes Mother Hypertension Congestive heart failure (CHF) Kidney failure Heart disease Father Parkinson disease Myocardial infarction Graves disease Skin cancer Denies family history of Ovarian cancer Prostate cancer Breast cancer Colorectal cancer Social History Smoking Status: Former smoker Tobacco Type: Cigarettes Age Started Using Tobacco: 21; Age Quit Using Tobacco: 58; packs per day: 1; Years Smoked: 37; Cigarettes Per Day: 2; Number of Years Since Quit: 1; Second Hand Exposure: No; Do You Dip or Chew Tobacco: No; Tobacco Cessation Education Requested by Patient: No Hx Alcohol Use: No Hx Substance Use: No Preferred Language: American Communication Ability: Effective Visual Impairment: No Limitations Hearing Ability: Normal Electrician Yard Required: No Beliefs That Will Affect Care: None marital status: Single Current Living Situation: Family Current Living Situation Comment: with sister current occupational status: disabled Other Information That Helps Us Care for You: No Feels Safe at Home: Yes Safety Concerns: Feels Safe At This Time Childhood Exposure to Second-Hand Smoke: No Dental Care, Regularly: No Physical Activity Frequency: Does not Exercise Seatbelt Use: always Sunscreen Use: Yes Assistive Devices: Walker Review of Systems Review of Systems: [place] Symptom Assessment Scale Pain 2/3 Dyspnea 0/3 Anxiety 2/3 Fatigue 1/3 Nausea 0/3 Anorexia 2/3 Drowsiness 0/3 Palliative Performance Score 50% Physical Exam Constitutional: + ill appearing ENMT: Mouth: oral mucous membranes not dry Respiratory: normal respiratory effort; no labored breathing Cardiovascular: right LE edema Gastrointestinal (Abdomen): epigastric tenderness Musculoskeletal: Extremities: + muscle atrophy Skin: erythema RLE Neurologic: awake; not confused Psychiatric: Affect: + anxious affect Results & Data ([facility]) Vital Signs (Past 12 Hours) Vital Signs Temp Resp BP Pulse Ox 09/03/20 07:36 98.6 F 18 90/57 L 94 PG Care Time/CCT Total # of Minutes Spent Total Time Spent with Patient: Total time spent is greater than 50% in coordination of care (as documented) at patient's floor/unit and/or counseling patient: total time spent 60 minutes with more than 50% of time spent on symptom management, goals of care, support. Coding Level of Care Code 03505 Inpt Consult Level 3 Diagnoses Palliative care encounter Z51.5 Pancreatic cancer C25.9 Abdominal pain R10.9 Cellulitis of foot, right L03.115 Constipation K59.00 Diabetes E11.9 Depression F32.9 Thrombus I82.90
[2020-09-03] MEDS: ACETAMINOPHEN 500 MG TAB PO PRN (13:58)
[2020-09-03] MEDS ORDERED: KETOROLAC 30 MG/ML VIAL IV ONE ×2 (15:12→22:30)
--- NOTE | 2020-09-03 15:13 | Hospitalist Progress Note ---
Date of Service September 03, 2020 Assessment & Plan (1) Ankle pain, right: I suspect this is an inflammatory arthropathy. x-rays without CPPD changes. This could represent gout given the right great toe findings on exam. The joint does not have a septic appearance. Will give 2 doses of toradol IV today. Then consider indocin or motrin. Check uric acid level in am. Could still be overlying cellulitis but it does not examine as such. Given her neutropenia will leave IV abx as precautionary measure for now. (2) Pain of right great toe: highly suspicious for podagra toradol 30mg IV x 2 doses re-eval am (3) Cellulitis of leg, right: see discussion above she had very mild cellulitis of RLE last admission but it was over mid to distal morgan her right morgan today is completely normal her findings on exam are over the right ankle mortise leave abx 1 more day while we gather more information and perform serial exams (4) Neutropenia associated with infection: Last chemotherapy cycle was [address] Sacha Lara's care - [facility]. Likely close to tristan. Continue neutropenic precautions. Will contact Dr Lara in am to inquire about neupogen. CBC in am. 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 Continue such. (6) Chronic pain due to neoplasm: Continue complex pain medication regimen managed by palliative care - Dr Humphrey. Dr Humphrey saw today and increased methadone to TID dosing. Monitor pain. (7) Depression: ongoing sees psychiatry as outpatient continue all prior psychotropic meds (8) Diabetes: Her last A1c was 6%. Metformin was d/c following last admission. Glucose 97 this am. (9) DVT prophylaxis: Lovenox 140mg SC daily Sister Soha updated by phone today extensively, questions answered Admission and Anticipated Discharge Date Admission Date: September 02, 2020 Subjective patient in good spirits during the visit she c/o right ankle pain and right great toe pain hurts to weight bear symptoms are significant at night-time she states she had gout in her right great toe ~2 years ago she also mentions her mother was afflicted w/ gout denies fevers/chills abdominal pain is about the same as during previous hospital stay no nausea/emesis last BM - yesterday Review of Systems Constitutional: + fatigue Ear, Nose, Mouth, Throat: no sore throat denies thrush or mouth lesions Respiratory: no cough, no dyspnea and no dyspnea on exertion Cardiovascular: no chest pain Gastrointestinal: no abdominal pain, no nausea, no vomiting and no diarrhea/loose stools Physical Exam Constitutional: no acute distress and no altered mental status ENMT: external ear and nose normal, oropharynx normal Mouth: no oral mucosal abnormality Respiratory: normal respiratory effort, lungs clear to auscultation Auscultation: + diminished lung sounds (bases - mild ) Cardiovascular: Rate/Rhythm: regular rate and regular rhythm Heart Sounds: normal S1 and normal S2; no murmur Vessels: posterior tibial pulses present and dorsalis pedis pulses present; no JVD Extremities: + edema (focal - right ankle, dorsum of foot ) Gastrointestinal (Abdomen): normal bowel sounds, soft, nontender, no hepatosplenomegaly Musculoskeletal: right ankle - synovitis, but not hot; tender with palpation and with passive ROM; right first MTP joint with focal swelling/erythema c/w podagra Skin: scant erythema present - focal over right ankle; no cellulitis Psychiatric: Orientation: alert Results & Data Results & Data ([facility]) Vital Signs (Past 12 Hours) Vital Signs Temp Resp BP Pulse Ox 09/03/20 07:36 37.0 C 18 90/57 L 94 cbc with leukopenia and neutropenia ANC 180 Hb 8.7 platelets wnl bmp wnl all films - ankle, foot, etc - reviewed blood cx's negative PG Care Time/CCT Total # of Minutes Spent Total Time Spent with Patient: Total time spent is greater than 50% in coordination of care (as documented) at patient's floor/unit and/or counseling patient: Coding Level of Care Code 17624 Subseq Hosp Care Lvl 3 Diagnoses Ankle pain, right M25.571 Chronicity: acute Pain of right great toe M79.674 Cellulitis of leg, right L03.115 Neutropenia associated with infection D70.3 Superior mesenteric vein thrombosis K55.069 Chronic pain due to neoplasm G89.3 Depression F32.9 Diabetes E11.9 DVT prophylaxis Z29.9 (1) Ankle pain, right Chronicity: acute Qualified Code(s): M25.571 - Pain in right ankle and joints of right foot
[2020-09-03] MEDS: DOCUSATE SODIUM 100 MG CAP PO SCH (16:28)
[2020-09-03] MEDS: ONDANSETRON 8MG OD TAB PO PRN (20:13)
[2020-09-03] MEDS: busPIRone 15 MG TAB PO SCH (20:13)
[2020-09-03] MEDS ORDERED: LORazepam 1 MG TAB PO SCH (21:00)
[2020-09-04] MEDS: HYDROmorphone HCL 2 MG TAB PO PRN ×2 (02:16→11:53)
[2020-09-04] MEDS ORDERED: VANCOMYCIN TROUGH ONE (05:30)
[2020-09-04 05:42] LABS: Hematocrit (blood only) 27.6 % (37-47); Hemoglobin 8.9 g/dL (12.0-16.0); Mean Corpuscular Hemoglobin 28.4 pg (25-34); Mean Corpuscular Hgb Conc 32.2 g/dL (32-36); Mean Corpuscular Volume 88.2 fL (80-100); Mean Platelet Volume 11.2 fL (7.4-10.4); Platelet Count 133 K/uL (130-400); RDW Coefficient of Variation 15.8 % (11.5-14.5); RDW Standard Deviation 50.1 fL (36.4-46.3); Red Blood Count 3.13 M/uL (4.2-5.4); White Blood Count 1.74 K/uL (4.8-10.8)
[2020-09-04 05:58] LABS: BUN Creatinine Ratio 11.7 (10-20); Calcium 8.1 mg/dl (8.5-10.1); Est GFR (African American) 108.1 ml/min; Est GFR (Non-African American) 93.2 ml/min; Potassium 4.2 mmol/L (3.5-5.1); Uric Acid 4.1 mg/dl (2.6-7.2)
[2020-09-04] MEDS: VANCOMYCIN HCL 1,250 MG in SODIUM CHLORIDE 0.9% 250 ML IV SCH ×2 (06:17→17:55)
[2020-09-04 06:23] LABS: Giant Platelets 3+
[2020-09-04 06:24] LABS: ALC (manual) 0.85 K/uL (1.2-3.4); ANC (manual) 0.68 K/uL (1.4-6.5); Eosinophils # (manual) 0.03 K/uL (0-0.5); Eosinophils % (manual) 1.7 %; Large Granular Lymph # (manua 0.32 K/uL; Large Granular Lymph % (manual) 18.3 %; Lymphocytes # (manual) 0.53 K/uL (1.2-3.4); Lymphocytes % (manual) 30.4 %; Monocytes # (manual) 0.18 K/uL (0.11-0.59); Monocytes % (manual) 10.4 %; Neutrophils # (manual) 0.68 K/uL (1.4-6.5); Neutrophils % (manual) 39.2 %
--- NOTE | 2020-09-04 07:12 | Pharmacy Report ---
Pharmacy Abx Dose Short Note - Date of Service September 04, 2020 - Assessment & Plan Assessment 60 year old F admitted yesterday secondary to fever and chills. * PMHx significant for metastatic pancreatic cancer. Most recent chemotherapy treatment was last week. She has a history of cellulitis of right leg. * Remains afebrile. Neutropenia improved to 680 today. Blood cultures with no growth after 24 hours. Plan Vancomycin * Trough level of 15.2 mcg/mL is therapeutic * Continue dose of 1250 mg (16 mg/kg) IV every 12 hours * Goal trough level: ~15 mcg/mL * Trough level ordered for 09/06/20 Pharmacy will continue to follow and will adjust dose/frequency as necessary. Thank you.
[2020-09-04] MEDS ORDERED: fentaNYL 75 MCG/HR TDSY TD SCH ×2 (08:00→11:00)
[2020-09-04] MEDS ORDERED: SODIUM CHLORIDE 0.9% 1000ML 500 ML IV ONE (09:16)
[2020-09-04] MEDS ORDERED: KETOROLAC 30 MG/ML VIAL IV ONE (09:16)
[2020-09-04] MEDS: PANTOprazole 40 MG TAB PO SCH (10:29)
[2020-09-04] MEDS: MULTIVITAMIN TAB PO SCH (10:29)
[2020-09-04] MEDS: METHADONE HCL 5 MG TAB PO SCH ×3 (10:33→19:32)
[2020-09-04] MEDS: ENOXAPARIN 150 MG/ML SYR SQ SCH (10:41)
[2020-09-04] MEDS: POLYETHYLENE (MIRALAX) 17 GM PACK PO SCH ×2 (10:41→16:16)
[2020-09-04] MEDS: CHECK fentaNYL PATCH PLACEMENT SCH ×2 (10:53→16:12)
[2020-09-04] MEDS: GABAPENTIN 800 MG TAB PO SCH ×3 (11:50→21:36)
[2020-09-04] MEDS ORDERED: HEPARIN 100 UNIT/ML 5ML FLUSH ONE (13:47)
[2020-09-04] MEDS ORDERED: METHADONE HCL 5 MG TAB PO SCH (14:00)
--- NOTE | 2020-09-04 16:05 | Palliative Care Progress Note ---
Date of Service September 04, 2020 Assessment & Plan (1) Abdominal pain: Methadone increased to 5mg every eight hours. Monitor with prolonged half life. She currently appears more comfortable. Continue hydromorphone prn and adjuvant gabapentin. If pain is stable on methadone, would work on weaning fentanyl patch. She is aware and agreeable to this but will monitor for now. (2) Ankle pain, right: improving with cellulitis (3) Cellulitis of foot, right: (4) Pancreatic cancer: (5) Superior mesenteric vein thrombosis: (6) Diabetes: (7) Palliative care encounter: Admission and Anticipated Discharge Date Admission Date: September 02, 2020 Subjective Resting in bed. Wants to eat but appetite is poor. She thinks that pain is a little better today. She has only had prn hydromorphone x 2 in the last 24 hours. Review of Systems Review of Systems: [place] Symptom Assessment Scale Pain 1/3 Dyspnea 0/3 Anxiety 1/3 Fatigue 2/3 Nausea 0/3 Anorexia 2/3 Palliative Performance Score 50% Physical Exam Constitutional: + ill appearing ENMT: Mouth: oral mucous membranes not dry Respiratory: normal respiratory effort; no labored breathing Cardiovascular: Extremities: no edema Gastrointestinal (Abdomen): epigastric tenderness Musculoskeletal: Extremities: + muscle atrophy Skin: decreased erythema and edema RLE Neurologic: awake; not confused Results & Data ([facility]) Vital Signs (Past 12 Hours) Vital Signs Temp Pulse Resp BP Pulse Ox 09/04/20 15:46 98.2 F 60 16 86/53 L 96 09/04/20 07:30 98.6 F 62 18 88/56 L 96 PG Care Time/CCT Total # of Minutes Spent Total Time Spent with Patient: Total time spent is greater than 50% in coordination of care (as documented) at patient's floor/unit and/or counseling patient: Coding Level of Care Code 81935 Subseq Hosp Care Lvl 2 Diagnoses Abdominal pain R10.9 Ankle pain, right M25.571 Chronicity: acute Cellulitis of foot, right L03.115 Pancreatic cancer C25.9 Superior mesenteric vein thrombosis K55.069 Diabetes E11.9 Palliative care encounter Z51.5 (1) Ankle pain, right Chronicity: acute Qualified Code(s): M25.571 - Pain in right ankle and joints of right foot
[2020-09-04] MEDS: DOCUSATE SODIUM 100 MG CAP PO SCH (16:12)
[2020-09-04] MEDS: INDOMETHACIN 25 MG CAP PO SCH ×2 (16:12→21:36)
[2020-09-04] MEDS ORDERED: SODIUM CHLORIDE 0.9% 1000ML 1,000 ML IV ONE (16:37)
[2020-09-04] MEDS: HEPARIN 100 UNIT/ML 5ML FLUSH FLUSH PRN (19:32)
[2020-09-04] MEDS: ONDANSETRON 8MG OD TAB PO PRN (19:36)
--- NOTE | 2020-09-04 20:53 | Hospitalist Progress Note ---
Date of Service September 04, 2020 Assessment & Plan (1) Pain of right great toe: highly suspicious for podagra IMPROVED/resolving with toradol x 3 doses (2 yesterday, 1 this am) start indocin 25mg BID for a few more days uric acid level 4.1 but the level can be normal even in the midst of a gout flare (2) Ankle pain, right: I suspect this is an inflammatory arthropathy. It has responded rapidly to NSAIDs. x-rays without CPPD changes. suspect gout given the presence of right great toe podagra. again a normal uric acid level does not rule out acute gouty attack. start indocin 25mg BID for a few more days. doubt cellulitis as cellulitis does not resolve in <24 hours. no evidence of septic joint. (3) Hypotension: etiology? hypovolemic? due to increased dose of methadone? H/H stable. no evidence of septicemia/bacteremia/sepsis. darlene's? cortisol level checked and low-normal at 5. will obtain formal cosyntropin stimulation test tomorrow am per protocol. gave a 500cc bolus, followed by 1000cc bolus of fluid with resolution of hypotension. follow carefully. (4) Cellulitis of leg, right: see discussion above in great toe pain, ankle pain she had very mild cellulitis of RLE last admission but it was over mid to distal morgan her right morgan continues to be completely normal her findings on exam are over the right ankle mortise and right great toe findings are not c/w cellulitis leave abx 1 more day while awaiting blood cx's if cultures are negative in am then stop IV antibiotics (5) Neutropenia associated with infection: Last chemotherapy cycle was [address] Sacah Lara's care - [facility]. ANC improved today. I spoke with Dr Lara this am - since no fevers and ANC is recovering spontaneously will hold off on neupogen. Continue neutropenic precautions. CBC am. 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 Continue such. (7) Chronic pain due to neoplasm: Continue complex pain medication regimen managed by palliative care - Dr Humphrey. Dr Humphrey saw today and increased methadone to TID dosing. Monitor pain. (8) Depression: ongoing sees psychiatry as outpatient continue all prior psychotropic meds (9) Diabetes: Her last A1c was 6%. Metformin was d/c following last admission. Glucoses remain acceptable. (10) DVT prophylaxis: Lovenox 140mg SC daily Sister Soha updated by phone yesterday extensively, questions answered progressing nicely Admission and Anticipated Discharge Date Admission Date: September 02, 2020 Subjective patient states that right great toe and right ankle feel much better. pain and swelling are improved, and she can put more weight on the right leg more comfortably. erythema resolved. no fevers. no chills. eating ok. no change in baseline abd pain. denies dizziness. Review of Systems Constitutional: + fatigue Ear, Nose, Mouth, Throat: no mouth lesions Respiratory: no dyspnea Cardiovascular: no chest pain Gastrointestinal: + abdominal pain; no nausea, no vomiting and no constipation Physical Exam Constitutional: no acute distress and no altered mental status ENMT: external ear and nose normal, oropharynx normal Mouth: no oral mucosal abnormality Respiratory: normal respiratory effort, lungs clear to auscultation Cardiovascular: Rate/Rhythm: regular rate and regular rhythm Heart Sounds: normal S1 and normal S2; no murmur Vessels: posterior tibial pulses present and dorsalis pedis pulses present; no JVD Extremities: + edema (focal - right ankle, dorsum of foot - nearly resolved t) Gastrointestinal (Abdomen): normal bowel sounds, soft, nontender, no hepatosplenomegaly Musculoskeletal: right great toe MTP joint - erythema, swelling, tenderness all improved; right ankle - swelling, tenderness, focal erythema improved/resolving ; passive ROM right ankle near-normal today; right mid-foot - no pain or tenderness Psychiatric: Orientation: alert and oriented x 3 Results & Data Results & Data ([facility]) Vital Signs (Past 12 Hours) Vital Signs Temp Pulse Pulse Resp BP BP Pulse Ox 09/04/20 18:21 66 113/67 09/04/20 15:46 36.8 C 60 16 86/53 L 96 Laboratory Results Laboratory Results - last 24 hr 09/04/20 09/04/20 09/04/20 05:34 05:34 05:34 WBC 1.74 L RBC 3.13 L Hgb 8.9 L Hct 27.6 L MCV 88.2 MCH 28.4 MCHC 32.2 RDW Std Deviation 50.1 H RDW Coeff of Natali 15.8 H Plt Count 133 MPV 11.2 H Neutrophils % (Manual) 39.2 Lymphocytes % (Manual) 30.4 Monocytes % (Manual) 10.4 Eosinophils % (Manual) 1.7 Neutrophils # (Manual) 0.68 L Total Absolute Neuts 0.68 L* Lymphocytes # (Manual) 0.53 L Total Abs Lymphocytes 0.85 L Monocytes # (Manual) 0.18 Eosinophils # (Manual) 0.03 Large Granular Lymphs 18.3 # Lrg Granular Lymphs 0.32 Giant Platelets 3+ Sodium 144 Potassium 4.2 Chloride 111 H Carbon Dioxide 29 Anion Gap 4.0 BUN 8 Creatinine 0.71 Est Cr Clr Drug Dosing 87.0 Est GFR ( Amer) 108.1 Est GFR (Non-Af Amer) 93.2 BUN/Creatinine Ratio 11.7 Glucose 104 H Uric Acid 4.1 Calcium 8.1 L Cortisol AM Sample Vancomycin Trough 15.2 09/04/20 09:26 WBC RBC Hgb Hct MCV MCH MCHC RDW Std Deviation RDW Coeff of Natali Plt Count MPV Neutrophils % (Manual) Lymphocytes % (Manual) Monocytes % (Manual) Eosinophils % (Manual) Neutrophils # (Manual) Total Absolute Neuts Lymphocytes # (Manual) Total Abs Lymphocytes Monocytes # (Manual) Eosinophils # (Manual) Large Granular Lymphs # Lrg Granular Lymphs Giant Platelets Sodium Potassium Chloride Carbon Dioxide Anion Gap BUN Creatinine Est Cr Clr Drug Dosing Est GFR ( Amer) Est GFR (Non-Af Amer) BUN/Creatinine Ratio Glucose Uric Acid Calcium Cortisol AM Sample 5.35 Vancomycin Trough PG Care Time/CCT Total # of Minutes Spent Total Time Spent with Patient: Total time spent is greater than 50% in coordination of care (as documented) at patient's floor/unit and/or counseling patient: Coding Level of Care Code 35148 Subseq Hosp Care Lvl 3 Diagnoses Pain of right great toe M79.674 Ankle pain, right M25.571 Chronicity: acute Hypotension I95.9 Cellulitis of leg, right L03.115 Neutropenia associated with infection D70.3 Superior mesenteric vein thrombosis K55.069 Chronic pain due to neoplasm G89.3 Depression F32.9 Diabetes E11.9 DVT prophylaxis Z29.9 (1) Ankle pain, right Chronicity: acute Qualified Code(s): M25.571 - Pain in right ankle and joints of right foot
[2020-09-04] MEDS: LORazepam 1 MG TAB PO SCH (21:36)
[2020-09-04] MEDS: busPIRone 15 MG TAB PO SCH (21:36)
[2020-09-05] MEDS: CHECK fentaNYL PATCH PLACEMENT SCH ×4 (01:01→23:17)
[2020-09-05] MEDS: METHADONE HCL 5 MG TAB PO SCH ×3 (03:24→19:03)
[2020-09-05] MEDS: VANCOMYCIN HCL 1,250 MG in SODIUM CHLORIDE 0.9% 250 ML IV SCH (05:38)
[2020-09-05 05:42] LABS: Hematocrit (blood only) 28.8 % (37-47); Hemoglobin 8.9 g/dL (12.0-16.0); Mean Corpuscular Hemoglobin 27.8 pg (25-34); Mean Corpuscular Hgb Conc 30.9 g/dL (32-36); Mean Platelet Volume 11.1 fL (7.4-10.4); Platelet Count 131 K/uL (130-400); RDW Coefficient of Variation 15.7 % (11.5-14.5); RDW Standard Deviation 51.1 fL (36.4-46.3)
[2020-09-05 06:16] LABS: BUN Creatinine Ratio 16.7 (10-20); Calcium 7.9 mg/dl (8.5-10.1); Est GFR (African American) 123.6 ml/min; Est GFR (Non-African American) 106.6 ml/min; Potassium 4.4 mmol/L (3.5-5.1)
[2020-09-05 06:35] LABS: Basophils # (auto) 0.01 K/uL (0-0.2); Basophils % (auto) 0.6 %; Eosinophils # (auto) 0.17 K/uL (0-0.5); Eosinophils % (auto) 9.4 %; Giant Platelets 2+; Lymphocytes # (auto) 0.67 K/uL (1.2-3.4); Lymphocytes % (auto) 37.2 %; Monocytes # (auto) 0.19 K/uL (0.11-0.59); Monocytes % (auto) 10.6 %; Neutrophils # (auto) 0.76 K/uL (1.4-6.5); Neutrophils % (auto) 42.2 %
[2020-09-05] MEDS: HEPARIN 100 UNIT/ML 5ML FLUSH FLUSH PRN (07:26)
[2020-09-05] MEDS ORDERED: COSYNTROPIN 1 MCG in SYRINGE 0 ML IV ONE (08:00)
[2020-09-05 08:50] LABS: Hematocrit (blood only) 28.2 % (37-47); Hemoglobin 9.1 g/dL (12.0-16.0); Mean Corpuscular Hemoglobin 28.3 pg (25-34); Mean Corpuscular Hgb Conc 32.3 g/dL (32-36); Mean Corpuscular Volume 87.9 fL (80-100); Mean Platelet Volume 11.4 fL (7.4-10.4); Platelet Count 118 K/uL (130-400); RDW Coefficient of Variation 15.8 % (11.5-14.5); Red Blood Count 3.21 M/uL (4.2-5.4); White Blood Count 1.76 K/uL (4.8-10.8)
[2020-09-05 09:01] LABS: Basophils # (auto) 0.01 K/uL (0-0.2); Basophils % (auto) 0.6 %; Eosinophils # (auto) 0.16 K/uL (0-0.5); Eosinophils % (auto) 9.1 %; Lymphocytes # (auto) 0.61 K/uL (1.2-3.4); Lymphocytes % (auto) 34.7 %; Monocytes # (auto) 0.18 K/uL (0.11-0.59); Monocytes % (auto) 10.2 %; Neutrophils % (auto) 45.4 %
[2020-09-05] MEDS: INDOMETHACIN 25 MG CAP PO SCH (09:11)
[2020-09-05] MEDS: GABAPENTIN 800 MG TAB PO SCH ×3 (09:12→21:29)
[2020-09-05 09:13] LABS: BUN Creatinine Ratio 14.6 (10-20); Calcium 8.2 mg/dl (8.5-10.1); Creatinine Clr Calc Pharmacy 123.5 ml/min; Est GFR (African American) 122.8 ml/min; Est GFR (Non-African American) 105.9 ml/min; Potassium 4.1 mmol/L (3.5-5.1)
[2020-09-05] MEDS: MULTIVITAMIN TAB PO SCH (09:13)
[2020-09-05] MEDS: PANTOprazole 40 MG TAB PO SCH (09:13)
[2020-09-05] MEDS: ENOXAPARIN 150 MG/ML SYR SQ SCH (09:15)
[2020-09-05] MEDS: POLYETHYLENE (MIRALAX) 17 GM PACK PO SCH ×3 (09:22→16:36)
[2020-09-05] MEDS: HYDROmorphone HCL 2 MG TAB PO PRN ×3 (10:12→22:29)
[2020-09-05] MEDS ORDERED: COLCHICINE 0.6 MG TAB PO ONE (13:49)
[2020-09-05] MEDS: PROMETHAZINE HCL 25 MG TAB PO PRN (14:18)
[2020-09-05] MEDS: SUCRALFATE 1 GM/10 ML UDC PO SCH ×3 (15:18→21:28)
[2020-09-05] MEDS: DOCUSATE SODIUM 100 MG CAP PO SCH (16:34)
--- NOTE | 2020-09-05 20:53 | Hospitalist Progress Note ---
Date of Service September 05, 2020 Assessment & Plan (1) Antineoplastic chemotherapy induced pancytopenia: mild anemia, mild thrombocytopenia, moderate neutropenia/leukopenia cbc in am no fevers blood cx's negative spoke with Dr Lara this week - no neupogen at this time pancytopenia tristan likely next 1-2 days (2) Neutropenia: 2nd chemotherapy moderate no fevers blood cx's negative cbc am neutropenic precautions stop IV vanco (3) Pain of right great toe: highly suspicious for podagra resolved with NSAIDs uric acid level 4.1 but the level can be normal even in the midst of a gout flare (4) Ankle pain, right: I suspect this is an inflammatory arthropathy. It has responded rapidly to NSAIDs. x-rays without CPPD changes. suspect gout given the presence of right great toe podagra. again a normal uric acid level does not rule out acute gouty attack. started indocin 25mg BID but having dyspepsia from such; change to once daily colchicine x 1 week. doubt cellulitis as cellulitis does not resolve in <24 hours. no evidence of septic joint. (5) Hypotension: suspect was combo of hypovolemia and effects from narcotics. resolved. H/H stable. no evidence of septicemia/bacteremia/sepsis. darlene's ruled out - normal cosyntropin stim test. 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 Continue such. (8) Chronic pain due to neoplasm: Continue complex pain medication regimen managed by palliative care - Dr Humphrey. Dr Humphrey saw this admission and increased methadone to TID dosing. Monitor pain. (9) Depression: ongoing sees psychiatry as outpatient continue all prior psychotropic meds (10) Diabetes: Her last A1c was 6%. Metformin was d/c following last admission. Glucoses remain acceptable. (11) Dyspepsia: add carafate qid cont PPI stop indocin (12) DVT prophylaxis: Lovenox 140mg SC daily Sister Soha updated by phone earlier this week left message for Soha on her voicemail 09/05/20 d/c home tomorrow Admission and Anticipated Discharge Date Admission Date: September 02, 2020 Subjective patient doing well this am only complaint is that of mild dyspepsia - didn't finish breakfast because of it but no nausea or emesis abdominal pain is at baseline right ankle and right great toe pain resolved weight-bearing normally no erythema of the skin Review of Systems Constitutional: + fatigue; no fever, no chills, no body aches and no malaise Respiratory: no cough and no dyspnea Cardiovascular: no chest pain Physical Exam Constitutional: no acute distress and no altered mental status ENMT: external ear and nose normal, oropharynx normal Mouth: no oral mucosal abnormality (no thrush or mucositis ) Respiratory: normal respiratory effort, lungs clear to auscultation Cardiovascular: Rate/Rhythm: regular rate and regular rhythm Heart Sounds: normal S1 and normal S2; no murmur Vessels: posterior tibial pulses present and dorsalis pedis pulses present; no JVD Extremities: + edema (focal - right ankle, dorsum of foot - minimal in ankle; scant dorsum foot) Gastrointestinal (Abdomen): normal bowel sounds, soft, nontender, no hepatosplenomegaly Musculoskeletal: right great toe podagra resolved; right ankle synovitis nearly resolved Skin: no evidence of cellulitis right leg or right foot/ankle Psychiatric: Orientation: alert and oriented x 3 Results & Data Results & Data ([facility]) Vital Signs (Past 12 Hours) Vital Signs Temp Pulse Resp BP Pulse Ox 09/05/20 19:01 109/69 09/05/20 16:09 36.9 C 56 L 16 99 09/05/20 15:30 92/58 L 09/05/20 08:57 37.0 C 69 16 106/68 96 Laboratory Results Laboratory Results - last 24 hr 09/05/20 09/05/20 09/05/20 05:31 05:31 08:21 WBC 1.80 L RBC 3.20 L Hgb 8.9 L Hct 28.8 L MCV 90.0 MCH 27.8 MCHC 30.9 L RDW Std Deviation 51.1 H RDW Coeff of Natali 15.7 H Plt Count 131 MPV 11.1 H Immature Gran % (Auto) 0.0 Neut % (Auto) 42.2 Lymph % (Auto) 37.2 [place] % (Auto) 10.6 Eos % (Auto) 9.4 Baso % (Auto) 0.6 Neut # (Auto) 0.76 L* Lymph # (Auto) 0.67 L [place] # (Auto) 0.19 Eos # (Auto) 0.17 Baso # (Auto) 0.01 Immature Gran # (Auto) 0.00 Absolute Nucleated RBC Nucleated RBC % (auto) Giant Platelets 2+ Sodium 144 Potassium 4.4 Chloride 113 H Carbon Dioxide 30 Anion Gap 1.0 L BUN 8 Creatinine 0.49 L Est Cr Clr Drug Dosing 126.0 Est GFR ( Amer) 123.6 Est GFR (Non-Af Amer) 106.6 BUN/Creatinine Ratio 16.7 Glucose 87 Calcium 7.9 L Cortisol Response 09/05/20 09/05/20 08:21 08:21 WBC 1.76 L RBC 3.21 L Hgb 9.1 L Hct 28.2 L MCV 87.9 MCH 28.3 MCHC 32.3 RDW Std Deviation 50.0 H RDW Coeff of Natali 15.8 H Plt Count 118 L MPV 11.4 H Immature Gran % (Auto) 0.0 Neut % (Auto) 45.4 Lymph % (Auto) 34.7 [place] % (Auto) 10.2 Eos % (Auto) 9.1 Baso % (Auto) 0.6 Neut # (Auto) 0.80 L* Lymph # (Auto) 0.61 L [place] # (Auto) 0.18 Eos # (Auto) 0.16 Baso # (Auto) 0.01 Immature Gran # (Auto) 0.00 Absolute Nucleated RBC 0.00 Nucleated RBC % (auto) 0.0 Giant Platelets Sodium 145 Potassium 4.1 Chloride 113 H Carbon Dioxide 28 Anion Gap 4.0 BUN 7 Creatinine 0.50 L Est Cr Clr Drug Dosing 123.5 Est GFR ( Amer) 122.8 Est GFR (Non-Af Amer) 105.9 BUN/Creatinine Ratio 14.6 Glucose 83 Calcium 8.2 L Cortisol Response PG Care Time/CCT Total # of Minutes Spent Total Time Spent with Patient: Total time spent is greater than 50% in coordination of care (as documented) at patient's floor/unit and/or counseling patient: Coding Level of Care Code 59812 Subseq Hosp Care Lvl 2 Diagnoses Antineoplastic chemotherapy induced pancytopenia D61.810; T45.1X5A Neutropenia D70.9 Pain of right great toe M79.674 Ankle pain, right M25.571 Chronicity: acute Hypotension I95.9 Cellulitis of leg, right L03.115 Superior mesenteric vein thrombosis K55.069 Chronic pain due to neoplasm G89.3 Depression F32.9 Diabetes E11.9 Dyspepsia R10.13 DVT prophylaxis Z29.9 (1) Ankle pain, right Chronicity: acute Qualified Code(s): M25.571 - Pain in right ankle and joints of right foot
[2020-09-05] MEDS: LORazepam 1 MG TAB PO SCH (21:28)
[2020-09-05] MEDS: busPIRone 15 MG TAB PO SCH (21:29)
[2020-09-06] MEDS: METHADONE HCL 5 MG TAB PO SCH ×2 (03:39→12:28)
[2020-09-06] MEDS ORDERED: VANCOMYCIN TROUGH ONE (05:30)
[2020-09-06 05:55] LABS: Hematocrit (blood only) 28.2 % (37-47); Hemoglobin 9.1 g/dL (12.0-16.0); Mean Corpuscular Hgb Conc 32.3 g/dL (32-36); Mean Corpuscular Volume 86.8 fL (80-100); Mean Platelet Volume 11.6 fL (7.4-10.4); Platelet Count 131 K/uL (130-400); RDW Coefficient of Variation 15.6 % (11.5-14.5); RDW Standard Deviation 49.1 fL (36.4-46.3); Red Blood Count 3.25 M/uL (4.2-5.4); White Blood Count 1.66 K/uL (4.8-10.8)
[2020-09-06 06:21] LABS: BUN Creatinine Ratio 10.4 (10-20); Creatinine Clr Calc Pharmacy 131.4 ml/min; Est GFR (African American) 125.3 ml/min; Est GFR (Non-African American) 108.1 ml/min; Potassium 3.8 mmol/L (3.5-5.1)
[2020-09-06 06:23] LABS: Basophils # (auto) 0.01 K/uL (0-0.2); Basophils % (auto) 0.6 %; Eosinophils # (auto) 0.19 K/uL (0-0.5); Eosinophils % (auto) 11.4 %; Lymphocytes # (auto) 0.69 K/uL (1.2-3.4); Lymphocytes % (auto) 41.6 %; Neutrophils # (auto) 0.57 K/uL (1.4-6.5); Neutrophils % (auto) 34.4 %
[2020-09-06 06:24] LABS: RBC Morphology Unremarkable
[2020-09-06] MEDS: ACETAMINOPHEN 500 MG TAB PO PRN (08:55)
[2020-09-06] MEDS: POLYETHYLENE (MIRALAX) 17 GM PACK PO SCH (08:56)
[2020-09-06] MEDS: PANTOprazole 40 MG TAB PO SCH (08:58)
[2020-09-06] MEDS: GABAPENTIN 800 MG TAB PO SCH (08:58)
[2020-09-06] MEDS: MULTIVITAMIN TAB PO SCH (08:58)
[2020-09-06] MEDS: CHECK fentaNYL PATCH PLACEMENT SCH (08:59)
[2020-09-06] MEDS: ONDANSETRON 8MG OD TAB PO PRN (08:59)
[2020-09-06] MEDS ORDERED: ERGOCALCIFEROL 50,000 UNITS 1250 MCG CAP PO SCH (09:00)
[2020-09-06] MEDS ORDERED: COLCHICINE 0.6 MG TAB PO SCH ×2 (09:00→13:45)
[2020-09-06] MEDS: SUCRALFATE 1 GM/10 ML UDC PO SCH ×2 (09:01→12:28)
[2020-09-06] MEDS: HYDROmorphone HCL 2 MG TAB PO PRN (09:05)
[2020-09-06] MEDS: ENOXAPARIN 150 MG/ML SYR SQ SCH (09:06)
--- NOTE | 2020-09-06 12:37 | Discharge Summary ---
Date of Service date of admission - September 02, 2020 date of discharge - September 06, 2020 Admission HPI Per Admitting Provider imary Care Provider: 60-year-old woman with a past medical history of pancreatic cancer who presents emergency department with fevers and chills that began on Wednesday with a recurrence of her right foot and ankle swelling and redness and pain in the setting of being admitted to [facility] from 08/18-08/23 for similar symptoms treated for cellulitis in the setting of being neutropenic. Initially the patient told the emergency room provider that she did not have chemotherapy however upon further questioning in the presence of her sister she confirms that she did have chemotherapy last week with outpatient [facility] through Dr. Lara. This is typical for her time course after chemotherapy to develop some peripheral cellulitis associate with neutropenia. She denies nausea, vomiting, diarrhea or urinary symptoms. The patient is chronically ill-appearing, but no acute distress, afebrile with stable vital signs. She has 1+ pitting edema to the right foot and ankle with mild erythema and warmth of the dorsum of the foot. WBC 1.5K with neutropenia with ANC 0.61 Chemistry without metabolic acidosis. Lactate 1.1, within normal limits. LFTs and electrolytes unremarkable. CRP and ESR within normal limits. COVID-19 PCR was negative. Procalcitonin is not elevated. Films of the right foot and ankle negative for acute fracture or osseous involvement. Right lower extremity ultrasound negative for DVT. Incidental note is made of right popliteal cyst. Given the patient's report of fevers for the past several days in the setting of her neutropenia she agrees with plan for admission for IV antibiotics. Principal Diagnosis suspected gouty arthritis of right ankle and right great toe - resolved Discharge Exam Constitutional no acute distress and no altered mental status [facility] external ear and nose normal, oropharynx normal Mouth: no oral mucosal abnormality (no thrush or mucositis ) Respiratory normal respiratory effort, lungs clear to auscultation Auscultation: + diminished lung sounds (bases - mild ) Cardiovascular Rate/Rhythm: regular rate and regular rhythm Heart Sounds: normal S1 and normal S2; no murmur Vessels: posterior tibial pulses present and dorsalis pedis pulses present; no JVD Extremities: no edema Gastrointestinal (Abdomen) normal bowel sounds, soft, nontender, no hepatosplenomegaly Musculoskeletal full active/passive ROM of right ankle; no tenderness to palpation over right great toe, ankle or the mid-foot Skin no erythema of right ankle, foot or first toe Psychiatric Orientation: alert and oriented x 3 Discharge Data Allergies Allergy/AdvReac Type Severity Reaction Status Date / Time latex Allergy Intermediate rash Verified 09/12/20 12:59 sulfamethoxazole Allergy Intermediate itching, Verified 09/12/20 12:59 chest tightness trimethoprim Allergy Intermediate itching, Verified 09/12/20 12:59 chest tightness adhesive Allergy Unknown ITCHY SKIN Verified 09/12/20 12:59 clindamycin AdvReac Severe Diarrhea Verified 09/12/20 12:59 doxycycline AdvReac Intermediate nausea and Verified 09/12/20 12:59 vomiting Consultations 09/02/20 21:18 Consult Palliative Care Routine Ordered Studies Chest X-Ray 09/02/20 14:43 XR chest 1V portable HISTORY: SEPSIS COMPARISON: Chest 08/22/2020. FINDINGS: No pneumothorax. No pleural effusions. Chronic elevation of the left h emidiaphragm with a left basilar linear densities. This favors subsegmental atelectasis. This is unchanged compared the prior study. The right lung is essentially clear. There are poststernotomy changes. Left subclavian Port-A-Cath terminates at the SVC. IMPRESSION: No significant change compared to the prior study. No acute process. Chronic elevation of the left hemidiaphragm is again noted. ACT 112: Negative or not required by law. Electronically signed by: Joshua Jacobo M.D. 09/02/2020 4:14 PM Ankle X-Ray 09/02/20 14:50 XR ankle RT min 3V routine, XR foot RT min 3V routine CLINICAL HISTORY: Right ankle and foot pain. Swelling. COMPARISON STUDY: Right ankle 08/16/2020. FINDINGS: Progressive moderate soft tissue swelling within the right ankle. No acute fracture or dislocation. Plantar heel spur is again noted. There is also soft tissue swelling within the right foot. IMPRESSION: Diffuse soft tissue swelling within the right ankle and foot. No fractures. ACT 112: Negative or not required by law. Electronically signed by: Joshua Jacobo M.D. 09/02/2020 4:20 PM Foot X-Ray 09/02/20 14:50 XR ankle RT min 3V routine, XR foot RT min 3V routine CLINICAL HISTORY: Right ankle and foot pain. Swelling. COMPARISON STUDY: Right ankle 08/16/2020. FINDINGS: Progressive moderate soft tissue swelling within the right ankle. No acute fracture or dislocation. Plantar heel spur is again noted. There is also soft tissue swelling within the right foot. IMPRESSION: Diffuse soft tissue swelling within the right ankle and foot. No fractures. ACT 112: Negative or not required by law. Electronically signed by: Joshua Jacobo M.D. 09/02/2020 4:20 PM Venous Doppler Study 09/02/20 14:50 RIGHT LOWER EXTREMITY VENOUS DOPPLER CLINICAL HISTORY: panc ca, RLE swelling COMPARISON STUDY: No previous studies for comparison. TECHNIQUE: Sonography of the deep venous system of the right lower extremity was performed. Compression and augmentation were evaluated. FINDINGS: The right common femoral, superficial femoral and popliteal veins were compressible. Augmentation was normal. Flow was shown within the deep calf vessels. Incidental note is made of a 2.5 x 1.2 x 0.6 cm right popliteal cyst. IMPRESSION: 1. No evidence of deep venous thrombus within the right lower extremity. 2. Small right popliteal cyst. ACT 112: Negative or not required by law. Electronically signed by: Rylan Carranza M.D. 09/02/2020 5:14 PM Hospital Course (1) Ankle pain, right: I suspect this was an inflammatory arthropathy. It responded rapidly to NSAIDs. x-rays without CPPD changes. suspect gout given the presence of concurrent right great toe podagra. Uric acid level was normal, but a normal uric acid level does not rule out acute gouty attack. received IV toradol followed by PO indamethacin with relief of symptoms. Changed to once daily colchicine x 1 week at discharge. doubt cellulitis as cellulitis does not resolve in <24 hours. no evidence of septic joint. (2) Pain of right great toe: highly suspicious for podagra. resolved with NSAIDs. uric acid level 4.1 but the level can be normal even in the midst of a gout flare. sent home with 7-day course of once daily colchicine. (3) Cellulitis of leg, right: see discussion above in "great toe pain, ankle pain". she had very mild cellulitis of RLE last admission but it was over the mid to distal morgan. her right morgan was completely normal this admission. her findings on exam were over the right ankle mortise and right great toe. findings were not c/w cellulitis but rather an inflammatory arthropathy. IV antibiotics stopped after 24 hours into her stay. (4) Hypotension: suspect was combination of hypovolemia and effects from narcotics. resolved with IV fluids. H/H stable. no evidence of septicemia/bacteremia/sepsis. darlene's ruled out - normal cosyntropin stim test. (5) Antineoplastic chemotherapy induced pancytopenia: mild anemia, mild thrombocytopenia, moderate neutropenia/leukopenia this admission. this was in the setting of recent chemotherapy for pancreatic cancer. no fevers while hospitalized. blood cx's negative. spoke with Dr Sacha Lara, her primary oncologist, and neupogen was deferred while here. 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 Continue such at discharge. (8) Chronic pain due to neoplasm: Continue complex pain medication regimen managed by palliative care - Dr Angelina Humphrey. Dr Humphrey saw Ms Trinh this admission and increased her methadone to TID dosing. (9) Depression: ongoing sees psychiatry as outpatient continue all prior psychotropic meds (10) Diabetes: Her last A1c was 6%. Metformin was d/c following last admission. Glucoses remain acceptable. (11) Dyspepsia: added carafate qid prn cont PPI (12) Pancreatic cancer: follows with Dr Sacha Lara, [facility] in [place]. s/p recent chemotherapy about 1 week prior to admission. she will f/u with Dr Lara shortly after discharge for ongoing care. (13) DVT prophylaxis: Lovenox 140mg SC daily Total Time Total Time Spent Total Time Spent (In Minutes): 40 Total Time Includes: Examination of the Patient, Discharge Planning, Medication Reconciliation and Communication With Other Providers Discharge Plan Discharge Items Patient Disposition: Home - Self-Care Reason For Visit: Right ankle & foot redness with pain Discharge Diagnosis: 1. Right ankle and right great toe pain/swelling - suspected gout. IMPROVED with anti-inflammatory pills and colchicine. No signs of skin infection (cellulitis). 2. Neutropenia - low neutrophil count (neutrophils are a type of white cell that fights bacteria) - due to recent chemotherapy. 3. Abdominal pain - due to pancreatic cancer. Dr Humphrey adjusted your methadone while here. 4. Low-normal blood pressure early in stay - likely due to mild dehydration and pain medications - resolved. Activity: Resume your previous activity Non-emergency contact: Primary Care Provider and Oncologist Call non-emergency contact if: you have any medication questions, your symptoms worsen, your pain is not controlled, your pain is worsening and you have a fever Follow-up/Referrals: Brent Dye III, CRNP [Primary Care Provider] - (see Brent Dye in 1-2 weeks for general health issue, if needed) Angelina Humphrey MD [Physician] - (see Dr Humphrey as scheduled ) Sacha Lara MD [Surgeon] - (see Dr Lara next week as scheduled for your cancer treatment ) Diet: Regular Addtl Attending Provider Instructions: aCm Cruz were admitted to the hospital due to concerns of a right foot/ankle skin infection. The very mild redness - along with pain - was centered over the right ankle joint and the right great toe. Your symptoms responded rapidly to anti-inflammatory medication. I suspect that this was a gout attack in those 2 joints. We continued anti-inflammatory medication and the ankle / right great toe are about back to normal with no signs of skin infection. If this was indeed gout -- gout likes to attack the joints when the body is under physical duress. Recommendations - 1. colchicine 0.6mg once daily for 7 days. Take your first dose tomorrow morning. This is for suspected gout in the right ankle/first toe. 2. in the future, if you develop joint pain that was similar to this instance, you can take the colchicine as needed. You can take the medication once daily for 5-7 days for future attacks. 3. for stomach upset/heartburn - may take sucralfate (carafate) 1 gram 30 minutes before meals and at bedtime as needed. 4. per Dr Humphrey you can increase your methadone to THREE TIMES A DAY dosing for your abdominal pains. 5. since you are neutropenic please avoid frequent visits outside your home. If you do please be sure to mask as you have been doing and practice really good hand-washing regularly. Follow-up - see separate section Return to [facility] if - * you have fever over 100.5 degrees * you have worsening pain in any location * you are short of breath * any other concerns Continue to feel better! Enjoy the sunshine, -Dr Arriaga Pending Studies at Discharge: Yes Studies:: blood cultures, but thus far negative (no evidence of infection in the blood) Stand-Alone Forms: [facility], Smoking Cessation Medications and DC Order Prescriptions: New colchicine [Colcrys] 0.6 mg Tablet 0.6 mg PO QAM PRN (Reason: joint pain from gout) Qty: 30 RF: 0 sucralfate [Carafate] 1 gram tablet 1 g PO ACHS PRN (Reason: upset stomach) Qty: 30 RF: 0 Continued multivitamin [Daily Multi-Vitamin] tablet 1 tab PO QAM RF: 0 ondansetron HCl 8 mg tablet 8 mg PO Q8H PRN (Reason: Nausea) RF: 0 prochlorperazine maleate 10 mg tablet 10 mg PO Q6H PRN (Reason: Nausea) RF: 0 gabapentin 800 mg tablet 800 mg PO TID Qty: 90 RF: 5 Narcan 4 mg/actuation spray,non-aerosol 4 mg intranasal Q2M PRN (Reason: opioid overdose) Qty: 2 RF: 0 fentanyl 50 mcg/hr patch 72 hour 50 mcg transdermal Q72H Qty: 10 RF: 0 fentanyl 25 mcg/hr patch 72 hour 1 patch transdermal Q72H Qty: 10 RF: 0 acetaminophen [Tylenol Extra Strength] 500 mg Tablet 1,000 mg PO DIRECTED PRN (Reason: Pain) RF: 0 buspirone 30 mg tablet 30 mg PO HS RF: 0 docusate sodium [Colace] 100 mg Capsule 100 mg PO QPM RF: 0 ergocalciferol (vitamin D2) [Vitamin D2] 1,250 mcg (50,000 unit) Capsule 1,250 mcg PO WK RF: 0 lorazepam 1 mg tablet 0.5 mg PO Q6H PRN (Reason: Anxiety) RF: 0 lorazepam 2 mg tablet 2 mg PO HS Qty: 30 RF: 0 Discontinued methadone 5 mg tablet 5 mg PO AMHS RF: 0 No Action indomethacin 50 mg capsule 50 mg PO TID 7 Days Qty: 21 RF: 0 hydromorphone 4 mg tablet 4 mg PO Q4H PRN (Reason: pain) Qty: 60 RF: 0 enoxaparin 150 mg/mL syringe See Rx Instructions subcut DAILY Qty: 10 RF: 1 methadone 5 mg tablet 5 mg PO TID Qty: 90 RF: 0 pantoprazole 40 mg tablet,delayed release (DR/EC) 40 mg PO QAM 30 Days Qty: 90 RF: 3 atorvastatin 40 mg tablet 40 mg PO QAM Qty: 90 RF: 3 polyethylene glycol 3350 [Miralax] 17 gram powder in packet 17 g PO PRN RF: 0 Discharge Orders: Discharge Order (Routine); Ordered 09/06/20 Ordered By: Dhaval Aguilar/Other Patient Handouts: Eating to Prevent Gout Admission Data Admit Date/Time: 09/02/20 18:43 Attending Provider: Dhaval Arriaga Admit Provider: Louis Saavedra Primary Care Provider: Brent Dye III Other Providers: Angelina Humphrey Other Interventions: Discharge Summary Assessment (RN) Last Done: 09/06/20 12:53 Coding Level of Care Code D/C Day Management >30 mins Diagnoses Ankle pain, right M25.571 Chronicity: acute Pain of right great toe M79.674 Cellulitis of leg, right L03.115 Hypotension I95.9 Antineoplastic chemotherapy induced pancytopenia D61.810; T45.1X5A Neutropenia D70.9 Superior mesenteric vein thrombosis K55.069 Chronic pain due to neoplasm G89.3 Depression F32.9 Diabetes E11.9 Dyspepsia R10.13 Pancreatic cancer C25.9 DVT prophylaxis Z29.9
--- NOTE | 2020-09-06 13:30 | Palliative Care Progress Note ---
Date of Service September 06, 2020 Assessment & Plan (1) Abdominal pain: Improved with increased methadone. Maintain current dose with adjuvants and we will arrange f/u for her as an outpatient to consider further medication adjustment. (2) Palliative care encounter: (3) Pancreatic cancer: Admission and Anticipated Discharge Date Admission Date: September 02, 2020 Subjective Standing by the door ready for discharge and smiling. She reports that the pain in her abdomen is a little better and denies pain in her foot and ankle. She has been using less prn dilaudid in the last two days. Review of Systems Review of Systems: [place] Symptom Assessment Scale Pain 1/3 Dyspnea 0/3 Anxiety 1/3 Fatigue 2/3 Drowsiness 0/3 Palliative Performance Score 60% Physical Exam Constitutional: no acute distress ENMT: Mouth: oral mucous membranes not dry Respiratory: normal respiratory effort; no labored breathing Cardiovascular: Extremities: no edema Gastrointestinal (Abdomen): Inspection/Auscultation: abdomen not distended Musculoskeletal: Extremities: extremities normal to inspection Neurologic: awake; not confused Results & Data ([facility]) Vital Signs (Past 12 Hours) Vital Signs Temp Pulse Pulse Pulse Resp BP BP 09/06/20 12:53 98.6 F 60 66 71 16 109/69 105/67 09/06/20 07:26 98.6 F 71 16 105/67 Pulse Ox 09/06/20 12:53 95 09/06/20 07:26 95 PG Care Time/CCT Total # of Minutes Spent Total Time Spent with Patient: Total time spent is greater than 50% in coordination of care (as documented) at patient's floor/unit and/or counseling patient: Coding Level of Care Code 20942 Subseq Hosp Care Lvl 2 Diagnoses Abdominal pain R10.9 Palliative care encounter Z51.5 Pancreatic cancer C25.9
== END 2020-09-06 13:34 | disposition home or self-care (01) ==
LOC: ED 13:42 → SUATTDRO 18:43 → 3W 18:43 → INTOOBSV 18:43 → 3W 21:55
DX: Z87.891 Personal history of nicotine dependence; D70.3 Neutropenia due to infection; M79.674 Pain in right toe(s); Z79.891 Long term (current) use of opiate analgesic; Z88.1 Allergy status to other antibiotic agents; R10.13 Epigastric pain; D61.810 Antineoplastic chemotherapy induced pancytopenia; I95.9 Hypotension, unspecified; E11.9 Type 2 diabetes mellitus without complications; Z79.899 Other long term (current) drug therapy; M71.21 Synovial cyst of popliteal space [Baker], right knee; Z91.048 Other nonmedicinal substance allergy status; T45.1X5A Adverse effect of antineoplastic and immunosuppressive drugs, initial encounter; K55.069 Acute infarction of intestine, part and extent unspecified; Z88.2 Allergy status to sulfonamides; Z91.040 Latex allergy status; M25.571 Pain in right ankle and joints of right foot; C25.0 Malignant neoplasm of head of pancreas; G89.3 Neoplasm related pain (acute) (chronic)

== ENCOUNTER 2021-02-06 09:37 | Inpatient (IN) ==
[2021-02-06 10:27] LABS: Mean Corpuscular Hgb Conc 31.1 g/dL (32-36)
[2021-02-06 10:35] LABS: Hemoglobin 11.5 g/dL (12.0-16.0); Mean Corpuscular Hemoglobin 24.7 pg (25-34); Mean Corpuscular Volume 79.6 fL (80-100); RDW Coefficient of Variation 17.7 % (11.5-14.5); RDW Standard Deviation 50.4 fL (36.4-46.3); Red Blood Count 4.65 M/uL (4.2-5.4); White Blood Count 4.58 K/uL (4.8-10.8)
[2021-02-06 10:37] LABS: INR 1.3 (0.9-1.1); Partial Thromboplastin Ratio 1.5; Partial Thromboplastin Time 40.6 Seconds (21.0-31.0); Prothrombin Time 12.9 Seconds (9.0-12.0)
[2021-02-06] MEDS ORDERED: cefTRIAXone SODIUM 1,000 MG/50 ML BAG IV STA (10:41)
--- NOTE | 2021-02-06 10:41 | Emergency Department Note ---
Impression & Plan Cellulitis of chest wall, Acute chest wall pain, Hypothermia, Leukopenia ED Provider Note NAME: GWENDOLYN CHAVEZ AGE: 61 SEX: F : 1960 ARRIVES VIA: Walk-In INFORMANT: Patient ED PROVIDER(S): Joshua Wooten DO CHIEF COMPLAINT: Chest wall pain HPI: Patient is a 61-year-old female who is getting IV chemotherapy for pancreatic cancer on Wednesday. The IV dislodged and injected into her chest wall. She is complaining of pain warmth and redness. The redness has significantly spread since then. Patient denies any headache or change in vision. Low-grade fevers of 100. No belly pain, nausea, vomiting, or diarrhea. No upper respiratory symptoms. No dysuria, urgency, or frequency. No other exacerbating remitting factors. She has been on antibiotics for the past several days as well with worsening redness. It was initially outlined and the redness has progressed within 24 hours from there. ROS: See above HPI for pertinent positives & negatives. A total of 10 systems reviewed and were otherwise negative. PAST MEDICAL HISTORY:See Below PAST SURGICAL HISTORY:See Below FAMILY HISTORY:See Below SOCIAL HISTORY:See Below HOME MEDICATIONS:See Below ALLERGIES:See Below VITALS:See Below PHYSICAL EXAMINATION: GENERAL: Sitting up in bed, alert, well appearing, well nourished, no distress, non-toxic EYE EXAM: normal conjunctiva. PERRL and EOM's grossly intact. OROPHARYNX: no exudate, no erythema, lips, buccal mucosa, and tongue normal and mucous membranes are moist NECK: supple, no nuchal rigidity, no adenopathy, non-tender CHEST: Induration just under the left port 3 inches in length by 2 inches in width. Erythema covers the entirety of the left anterior breast LUNGS: Clear to auscultation. Normal chest wall mechanics HEART: no murmurs, S1 normal and S2 normal ABDOMEN: abdomen soft, non-tender, normo-active bowel sounds, no masses, no rebound or guarding. UPPER EXTREMITIES: upper extremities are grossly normal. LOWER EXTREMITIES: No pitting edema. NEURO EXAM: Normal sensorium, cranial nerves II-XII grossly intact, normal speech, no gross weakness of arms, no gross weakness of legs. MEDICAL DECISION MAKING: Patient is a 61-year-old female who presents ER for immune compromise with injection of chemotherapy into the chest wall subcu with overlying redness and pain. IV was established blood was obtained. Labs show mild leukopenia 4.5 thousand. Mild anemia 11. No neutropenia. Platelets were 135. INR 1.3. BMP along with lactate were normal. Troponin was negative. Pro-Quintin was essentially normal at 0.23. UA was clean. Ultrasound the chest wall shows small amount of fluid but no abscess. Question if this is cellulitis versus inflammatory response to the chemotherapy. Discussed with heme-onc and they agreed with admission patient had already been given vancomycin and Rocephin. Patient was given IV morphine. She was given as needed meds as well to use as needed as sister noted that her pain was not controlled at this point although patient had told the nurse that she was feeling better. Discussed with the hospitalist. Hospitalist requested that we speak with general surgery in case this becomes necrotic and will need surgery although this is not the case at this time. Mya ent was admitted to Dr. Montanez service. Triage Nursing notes reviewed. Limited review of prior medical records performed Vital Signs: reviewed and remarkable for no significant abnormalities Differential diagnosis: Cellulitis, abscess, MRSA infection, DVT, necrotizing fasciitis, dermatitis, drug eruption, allergic reaction, as well as other pathologies. ER treatment provided: See below Diagnostics interpreted by me: ECG: none Cardiac Monitoring: An order was placed for continuous cardiac monitoring. The monitor shows a rate of 72 with sinus rhythm. Laboratory studies: As stated above and show below. Imaging studies: Duplex shows no abscess Consultation(s): Discussed with general surgery, hospitalist and heme-onc as stated above. Heme- onc was Dr. Lara who agreed with plan of IV antibiotics admission. Procedures: none Critical Care: None Past Med/Surg History Medical History Acute pancreatitis Cellulitis of leg, right Constipation Diabetes Headache History of uterine fibroid Hyperlipidemia Hypertension Intractable vomiting Iron deficiency anemia Migraine (09/09/12) Nausea & vomiting Pancreatic cancer Pancreatic duct stricture Pancreatitis, acute Panic attack (09/09/12) PMB (postmenopausal bleeding) Restless legs syndrome Superior mesenteric vein thrombosis Surgical History History of excision of lesion History of laparoscopic cholecystectomy Port-A-Cath in place (07/10/20) S/P surgical removal of pilonidal cyst Family History Sister Endometrial cancer Arthritis Celiac disease Hypertension Diabetes Mother Hypertension Congestive heart failure (CHF) Kidney failure Heart disease Father Parkinson disease Myocardial infarction Graves disease Skin cancer Denies family history of Ovarian cancer Prostate cancer Breast cancer Colorectal cancer Social History Smoking Status: Former smoker Tobacco Type: Cigarettes Age Started Using Tobacco: 21; Age Quit Using Tobacco: 58; packs per day: 1; Years Smoked: 37; Cigarettes Per Day: 2; Number of Years Since Quit: 1; Second Hand Exposure: No; Hx Alcohol Use: No Hx Substance Use: No Preferred Language: Thai Communication Ability: Effective Visual Impairment: No Limitations Hearing Ability: Normal [employer]punch [employer]ators Supervisor Required: No Beliefs That Will Affect Care: None marital status: Single Current Living Situation: Family Current Living Situation Comment: with sister current occupational status: disabled Feels Safe at Home: Yes Childhood Exposure to Second-Hand Smoke: No Dental Care, Regularly: No Physical Activity Frequency: Does not Exercise Seatbelt Use: always Sunscreen Use: Yes Assistive Devices: Glasses Allergies Allergies Allergy/AdvReac Type Severity Reaction Status Date / Time latex Allergy Intermediate rash Verified 02/06/21 12:05 sulfamethoxazole Allergy Intermediate itching, Verified 02/06/21 12:05 chest tightness trimethoprim Allergy Intermediate itching, Verified 02/06/21 12:05 chest tightness adhesive Allergy Unknown ITCHY SKIN Verified 02/06/21 12:05 clindamycin AdvReac Severe Diarrhea Verified 02/06/21 12:05 doxycycline AdvReac Intermediate nausea and Verified 02/06/21 12:05 vomiting Home Meds Home Medications Medication Instructions Recorded Confirmed multivitamin (Daily Multi-Vitamin) 1 tab PO QAM 10/26/18 02/06/21 ondansetron HCl 8 mg tablet 8 mg PO TID 08/01/20 02/06/21 prochlorperazine maleate 10 mg 10 mg PO TID 08/01/20 02/06/21 tablet (Compazine) ergocalciferol (vitamin D2) 1,250 1,250 mcg PO WK 05/02/21 10/21/21 mcg (50,000 unit) capsule (Vitamin D2) bupropion HCl 100 mg tablet 100 mg PO QAM tab 01/07/21 02/06/21 buspirone 30 mg tablet 30 mg PO HS tab 01/07/21 02/06/21 atorvastatin 40 mg tablet (Lipitor) 40 mg PO QAM 02/06/21 02/06/21 buspirone 10 mg tablet 10 mg PO QAM 02/06/21 02/06/21 gabapentin 800 mg tablet 800 mg PO TID 02/06/21 02/06/21 (Neurontin) hydromorphone 4 mg tablet 6 mg PO Q4H 02/06/21 02/06/21 (Dilaudid) methadone 5 mg tablet 10 mg PO BID 02/06/21 02/06/21 pantoprazole 40 mg tablet,delayed 40 mg PO QAM 02/06/21 02/06/21 release (Protonix) Previous Rx's Medication Instructions Recorded naloxone 4 mg/actuation nasal 4 mg INTRANASAL Q2M PRN #2 ea 06/24/20 spray (Narcan) enoxaparin 150 mg/mL subcutaneous See Rx Instructions SUBCUT DAILY 09/09/20 syringe #10 ml fentanyl 50 mcg/hr transdermal 50 mcg TRANSDERMAL Q72H #10 ea 12/17/20 patch lorazepam 1 mg tablet 1 mg PO .COMPLEX PRN #90 tab 01/24/21 cephalexin 500 mg capsule 500 mg PO TID 10 Days #30 cap 02/04/21 lidocaine-prilocaine 2.5 %-2.5 % 1 applic TOPICAL ONCE #30 g 02/04/21 topical cream Results & Data (ED) Vital Signs Vital Signs - 24 hr 02/06/21 09:39 02/06/21 10:41 02/06/21 11:00 Temperature 35.7 C L Temperature Source Temporal Artery Scan Pulse Rate 88 Pulse Rate [Apical] 79 82 Respiratory Rate 20 17 18 Respiratory Effort / Characteristics Non-Labored Spontaneous Non-Labored Non-Labored Respiratory Depth Normal Normal Respiratory Pattern Regular Blood Pressure 132/87 Blood Pressure [Right Arm] 125/82 128/86 Blood Pressure Mean 102 Blood Pressure Mean [Right Arm] 96 100 Pulse Oximetry 98 96 97 Oxygen Delivery Method Room Air Room Air Room Air Sepsis Recent Fever Within 48 Hours Yes Sepsis New/Unexplained Change in Mental Status N/A Sepsis Action Taken by Nursing No Action Required 02/06/21 11:30 02/06/21 12:00 02/06/21 12:30 Temperature Temperature Source Pulse Rate Pulse Rate [Apical] 74 Respiratory Rate 16 18 18 Respiratory Effort / Characteristics Non-Labored Non-Labored Non-Labored Respiratory Depth Respiratory Pattern Blood Pressure Blood Pressure [Right Arm] 132/85 Blood Pressure Mean Blood Pressure Mean [Right Arm] 100 Pulse Oximetry 96 96 97 Oxygen Delivery Method Room Air Room Air Room Air Sepsis Recent Fever Within 48 Hours Sepsis New/Unexplained Change in Mental Status Sepsis Action Taken by Nursing 02/06/21 13:00 02/06/21 13:30 02/06/21 13:53 Temperature Temperature Source Pulse Rate Pulse Rate [Apical] 78 Respiratory Rate 16 18 18 Respiratory Effort / Characteristics Non-Labored Non-Labored Respiratory Depth Respiratory Pattern Blood Pressure Blood Pressure [Right Arm] 146/85 H Blood Pressure Mean Blood Pressure Mean [Right Arm] 105 Pulse Oximetry 95 96 96 Oxygen Delivery Method Room Air Room Air Room Air Sepsis Recent Fever Within 48 Hours Sepsis New/Unexplained Change in Mental Status Sepsis Action Taken by Nursing 02/06/21 14:00 Temperature Temperature Source Pulse Rate Pulse Rate [Apical] 79 Respiratory Rate 16 Respiratory Effort / Characteristics Non-Labored Respiratory Depth Respiratory Pattern Blood Pressure Blood Pressure [Right Arm] 131/76 Blood Pressure Mean Blood Pressure Mean [Right Arm] 94 Pulse Oximetry 95 Oxygen Delivery Method Room Air Sepsis Recent Fever Within 48 Hours Sepsis New/Unexplained Change in Mental Status Sepsis Action Taken by Nursing Laboratory Data Result diagrams: 02/06/21 10:09 02/06/21 10:09 Lab Results 02/06/21 02/06/21 02/06/21 Range/Units 10:09 10:09 10:09 WBC 4.58 L (4.8-10.8) K/uL RBC 4.65 (4.2-5.4) M/uL Hgb 11.5 L (12.0-16.0) g/dL Hct 37.0 (37-47) % MCV 79.6 L (80-100) fL MCH 24.7 L (25-34) pg MCHC 31.1 L (32-36) g/dL RDW Std Deviation 50.4 H (36.4-46.3) fL RDW Coeff of Natali 17.7 H (11.5-14.5) % Plt Count 135 (130-400) K/uL MPV 11.2 H (7.4-10.4) fL Immature Gran % (Auto) 0.0 % Neut % (Auto) 73.1 % Lymph % (Auto) 19.7 % Laurens % (Auto) 6.1 % Eos % (Auto) 0.9 % Baso % (Auto) 0.2 % Neut # (Auto) 3.35 (1.4-6.5) K/uL Lymph # (Auto) 0.90 L (1.2-3.4) K/uL Laurens # (Auto) 0.28 (0.11-0.59) K/uL Eos # (Auto) 0.04 (0-0.5) K/uL Baso # (Auto) 0.01 (0-0.2) K/uL Immature Gran # (Auto) 0.00 (0.00-0.02) K/uL Platelet Estimate Decreased L (Normal) PT (9.0-12.0) Seconds INR (0.9-1.1) APTT (21.0-31.0) Seconds PTT Ratio Sodium 138 (136-145) mmol/L Potassium 3.7 (3.5-5.1) mmol/L Chloride 107 (98-107) mmol/L Carbon Dioxide 25 (21-32) mmol/L Anion Gap 6.0 (3-11) BUN 8 (7-18) mg/dl Creatinine 0.78 (0.6-1.2) mg/dl Est Cr Clr Drug Dosing 72.7 ml/min Est GFR ( Amer) 95.8 ml/min Est GFR (Non-Af Amer) 82.6 ml/min BUN/Creatinine Ratio 10.3 (10-20) Glucose 113 H (70-99) mg/dl Lactate (0.4-2.0) mmol/L Calcium 8.3 L (8.5-10.1) mg/dl Magnesium 1.8 (1.8-2.4) mg/dl Total Bilirubin 0.3 (0.2-1) mg/dl AST 50 H (15-37) U/L ALT 53 (12-78) U/L Alkaline Phosphatase 291 H (45-117) U/L Troponin I < 0.015 (0-0.045) ng/ml Total Protein 6.2 L (6.4-8.2) gm/dl Albumin 2.9 L (3.4-5.0) gm/dl Globulin 3.3 (2.5-4.0) gm/dl Albumin/Globulin Ratio 0.9 (0.9-2) Procalcitonin 0.23 (0-0.5) ng/ml Urine Color Urine Appearance (Clear) Urine pH (4.5-7.5) Ur Specific Clyde (1.000-1.030) Urine Protein (Negative) Urine Glucose (UA) (Negative) Urine Ketones (Negative) Urine Blood (Negative) Urine Nitrite (Negative) Urine Bilirubin (Negative) Urine Urobilinogen (Negative) Ur Leukocyte Esterase (Negative) COVID-19 Eval Order SARS-CoV-2 (PCR) (Negative) 02/06/21 02/06/21 02/06/21 Range/Units 10:09 10:09 12:34 WBC (4.8-10.8) K/uL RBC (4.2-5.4) M/uL Hgb (12.0-16.0) g/dL Hct (37-47) % MCV (80-100) fL MCH (25-34) pg MCHC (32-36) g/dL RDW Std Deviation (36.4-46.3) fL RDW Coeff of Natali (11.5-14.5) % Plt Count (130-400) K/uL MPV (7.4-10.4) fL Immature Gran % (Auto) % Neut % (Auto) % Lymph % (Auto) % Laurens % (Auto) % Eos % (Auto) % Baso % (Auto) % Neut # (Auto) (1.4-6.5) K/uL Lymph # (Auto) (1.2-3.4) K/uL Laurens # (Auto) (0.11-0.59) K/uL Eos # (Auto) (0-0.5) K/uL Baso # (Auto) (0-0.2) K/uL Immature Gran # (Auto) (0.00-0.02) K/uL Platelet Estimate (Normal) PT 12.9 H (9.0-12.0) Seconds INR 1.3 H (0.9-1.1) APTT 40.6 H (21.0-31.0) Seconds PTT Ratio 1.5 Sodium (136-145) mmol/L Potassium (3.5-5.1) mmol/L Chloride (98-107) mmol/L Carbon Dioxide (21-32) mmol/L Anion Gap (3-11) BUN (7-18) mg/dl Creatinine (0.6-1.2) mg/dl Est Cr Clr Drug Dosing ml/min Est GFR ( Amer) ml/min Est GFR (Non-Af Amer) ml/min BUN/Creatinine Ratio (10-20) Glucose (70-99) mg/dl Lactate 1.3 (0.4-2.0) mmol/L Calcium (8.5-10.1) mg/dl Magnesium (1.8-2.4) mg/dl Total Bilirubin (0.2-1) mg/dl AST (15-37) U/L ALT (12-78) U/L Alkaline Phosphatase (45-117) U/L Troponin I (0-0.045) ng/ml Total Protein (6.4-8.2) gm/dl Albumin (3.4-5.0) gm/dl Globulin (2.5-4.0) gm/dl Albumin/Globulin Ratio (0.9-2) Procalcitonin (0-0.5) ng/ml Urine Color Urine Appearance (Clear) Urine pH (4.5-7.5) Ur Specific Clyde (1.000-1.030) Urine Protein (Negative) Urine Glucose (UA) (Negative) Urine Ketones (Negative) Urine Blood (Negative) Urine Nitrite (Negative) Urine Bilirubin (Negative) Urine Urobilinogen (Negative) Ur Leukocyte Esterase (Negative) COVID-19 Eval Order Covid19 at [facility] SARS-CoV-2 (PCR) (Negative) 02/06/21 02/06/21 Range/Units 12:34 13:33 WBC (4.8-10.8) K/uL RBC (4.2-5.4) M/uL Hgb (12.0-16.0) g/dL Hct (37-47) % MCV (80-100) fL MCH (25-34) pg MCHC (32-36) g/dL RDW Std Deviation (36.4-46.3) fL RDW Coeff of Natali (11.5-14.5) % Plt Count (130-400) K/uL MPV (7.4-10.4) fL Immature Gran % (Auto) % Neut % (Auto) % Lymph % (Auto) % Laurens % (Auto) % Eos % (Auto) % Baso % (Auto) % Neut # (Auto) (1.4-6.5) K/uL Lymph # (Auto) (1.2-3.4) K/uL Laurens # (Auto) (0.11-0.59) K/uL Eos # (Auto) (0-0.5) K/uL Baso # (Auto) (0-0.2) K/uL Immature Gran # (Auto) (0.00-0.02) K/uL Platelet Estimate (Normal) PT (9.0-12.0) Seconds INR (0.9-1.1) APTT (21.0-31.0) Seconds PTT Ratio Sodium (136-145) mmol/L Potassium (3.5-5.1) mmol/L Chloride (98-107) mmol/L Carbon Dioxide (21-32) mmol/L Anion Gap (3-11) BUN (7-18) mg/dl Creatinine (0.6-1.2) mg/dl Est Cr Clr Drug Dosing ml/min Est GFR ( Amer) ml/min Est GFR (Non-Af Amer) ml/min BUN/Creatinine Ratio (10-20) Glucose (70-99) mg/dl Lactate (0.4-2.0) mmol/L Calcium (8.5-10.1) mg/dl Magnesium (1.8-2.4) mg/dl Total Bilirubin (0.2-1) mg/dl AST (15-37) U/L ALT (12-78) U/L Alkaline Phosphatase (45-117) U/L Troponin I (0-0.045) ng/ml Total Protein (6.4-8.2) gm/dl Albumin (3.4-5.0) gm/dl Globulin (2.5-4.0) gm/dl Albumin/Globulin Ratio (0.9-2) Procalcitonin (0-0.5) ng/ml Urine Color Yellow Urine Appearance Clear (Clear) Urine pH 6.0 (4.5-7.5) Ur Specific Clyde 1.018 (1.000-1.030) Urine Protein Negative (Negative) Urine Glucose (UA) Negative (Negative) Urine Ketones Negative (Negative) Urine Blood Negative (Negative) Urine Nitrite Negative (Negative) Urine Bilirubin Negative (Negative) Urine Urobilinogen Negative (Negative) Ur Leukocyte Esterase Negative (Negative) COVID-19 Eval Order SARS-CoV-2 (PCR) NEGATIVE (Negative) Administered Medications Morphine Sulfate (Morphine Sulfate 4 Mg/Ml 1 Ml Carp\Vial) 4 mg IV Q1H PRN PRN Reason: Severe Pain (Rating 7,8,9,10) Stop: 02/20/21 13:13 Last Admin: 02/06/21 13:46 Dose: 4 mg Documented by: [id number] Discontinued Medications Ceftriaxone Sodium (Rocephin) 1,000 mg in 50 mls @ 100 mls/hr IV NOW STA Stop: 02/06/21 11:10 Last Infusion: 02/06/21 11:17 Dose: 0 mls/hr Documented by: [id number] Admin: 02/06/21 10:47 Dose: 100 mls/hr Documented by: [id number] Morphine Sulfate (Morphine Sulfate 4 Mg/Ml 1 Ml Carp\Vial) 4 mg IV NOW STA Stop: 02/06/21 12:11 Last Admin: 02/06/21 12:29 Dose: 4 mg Documented by: [id number] Imaging Data Radiologist's Impression: Chest X-Ray 02/06/21 09:57 SINGLE VIEW CHEST CLINICAL HISTORY: Sepsis. FINDINGS: An AP, portable, upright chest radiograph is compared to study dated 09/02/2020 and correlated with chest CT dated 12/02/2020. A left subclavian central venous infusion port is unchanged in position. The patient is status post midline sternotomy. The cardiomediastinal silhouette is unremarkable. There is chronic elevation of the left hemidiaphragm with atelectasis of the left lower lung. [facility]ion previous left-sided pulmonary resection. There is no airspace consolidation typical for pneumonia or large pleural effusion. Atelectasis is seen at the right lung base. No pneumothorax is seen. The skeletal structures are osteopenic. The bony thorax is grossly intact. IMPRESSION: Chronic changes as above with no acute cardiopulmonary abnormality. ACT 112: Negative or not required by law. Electronically signed by: Ishan Holt M.D. 02/06/2021 10:54 AM Breast Ultrasound 02/06/21 10:41 US breast LT limited CLINICAL HISTORY: Left breast indurated by injection site COMPARISON STUDY: Chest CT December 02, 2020. TECHNIQUE: Sonography of the left upper chest adjacent to the port at site of induration was performed. FINDINGS: Left-sided [id number] was noted. No fluid collection was identified on this exam to suggest an abscess. Subcutaneous fluid is noted within the left upper chest. No mass is identified within the left chest wall IMPRESSION: No fluid collection to suggest an abscess. Mild subcutaneous fluid of the left upper chest. ACT 112: Negative or not required by law. Electronically signed by: Rylan Carranza M.D. 02/06/2021 11:52 AM Discharge Plan Visit Data Chief Complaint: Fever Stated Complaint: CELLULITIS IN CHEST, PORT INFECTION, FEVER ED Provider: Joshua Wooten Discharge Problem: Cellulitis of chest wall, Acute chest wall pain, Hypothermia, Leukopenia Forms Stand Alone Forms: [facility] Prescriptions Prescriptions: No Action enoxaparin 150 mg/mL syringe See Rx Instructions subcut DAILY Qty: 10 RF: 1 fentanyl 50 mcg/hr patch 72 hour 50 mcg transdermal Q72H Qty: 10 RF: 0 lorazepam 1 mg tablet 1 mg PO .COMPLEX PRN (Reason: anxiety) Qty: 90 RF: 0 multivitamin [Daily Multi-Vitamin] tablet 1 tab PO QAM RF: 0 ondansetron HCl 8 mg tablet 8 mg PO TID RF: 0 prochlorperazine maleate [Compazine] 10 mg tablet 10 mg PO TID RF: 0 lidocaine-prilocaine 2.5-2.5 % cream 1 applic topical ONCE Qty: 30 RF: 0 cephalexin 500 mg capsule 500 mg PO TID 10 Days Qty: 30 RF: 0 Narcan 4 mg/actuation spray,non-aerosol 4 mg intranasal Q2M PRN (Reason: opioid overdose) Qty: 2 RF: 0 bupropion HCl 100 mg tablet 100 mg PO QAM RF: 0 buspirone 30 mg tablet 30 mg PO HS RF: 0 ergocalciferol (vitamin D2) [Vitamin D2] 1,250 mcg (50,000 unit) Capsule 1,250 mcg PO WK RF: 0 buspirone 10 mg tablet 10 mg PO QAM RF: 0 atorvastatin [Lipitor] 40 mg tablet 40 mg PO QAM RF: 0 gabapentin [Neurontin] 800 mg tablet 800 mg PO TID RF: 0 pantoprazole [Protonix] 40 mg tablet,delayed release (DR/EC) 40 mg PO QAM RF: 0 hydromorphone [Dilaudid] 4 mg tablet 6 mg PO Q4H RF: 0 methadone 5 mg tablet 10 mg PO BID RF: 0 Referrals Referrals: Brent Dye III, CRNP [Primary Care Provider] -
[2021-02-06 10:46] LABS: Alanine Aminotransferase 53 U/L (12-78); Albumin Level 2.9 gm/dl (3.4-5.0); Aspartate Aminotransferase 50 U/L (15-37); BUN Creatinine Ratio 10.3 (10-20); Blood Urea Nitrogen 8 mg/dl (7-18); Calcium 8.3 mg/dl (8.5-10.1); Carbon Dioxide 25 mmol/L (21-32); Chloride 107 mmol/L (98-107); Creatinine Clr Calc Pharmacy 72.7 ml/min; Est GFR (African American) 95.8 ml/min; Est GFR (Non-African American) 82.6 ml/min; Glucose 113 mg/dl (70-99); Magnesium 1.8 mg/dl (1.8-2.4); Potassium 3.7 mmol/L (3.5-5.1); Sodium 138 mmol/L (136-145)
[2021-02-06 10:51] LABS: Albumin Globulin Ratio 0.9 (0.9-2); Alkaline Phosphatase 291 U/L (45-117); Bilirubin,Total 0.3 mg/dl (0.2-1); Globulin 3.3 gm/dl (2.5-4.0); Total Protein 6.2 gm/dl (6.4-8.2); Troponin I < 0.015 ng/ml (0-0.045)
--- NOTE | 2021-02-06 10:55 | XRay Report ---
SINGLE VIEW CHEST CLINICAL HISTORY: Sepsis. FINDINGS: An AP, portable, upright chest radiograph is compared to study dated 09/02/2020 and correlat ed with chest CT dated 12/02/2020. A left subclavian central venous infusion port is unchanged in posi tion. The patient is status post midline sternotomy. The cardiomediastinal silhouette is unremarkable . There is chronic elevation of the left hemidiaphragm with atelectasis of the left lower lung. [facility] ion previous left-sided pulmonary resection. There is no airspace consolidation typical for pneumonia or large pleural effusion. Atelectasis is seen at the right lung base. No pneumothorax is seen. The skeletal structures are osteopenic. The bony thorax is grossly intact. IMPRESSION: Chronic changes as above with no acute cardiopulmonary abnormality. ACT 112: Negative or not required by law. Electronically signed by: Ishan Holt M.D. 02/06/2021 10:54 AM
[2021-02-06 11:06] LABS: Basophils # (auto) 0.01 K/uL (0-0.2); Basophils % (auto) 0.2 %; Eosinophils # (auto) 0.04 K/uL (0-0.5); Eosinophils % (auto) 0.9 %; Lymphocytes % (auto) 19.7 %; Mean Platelet Volume 11.2 fL (7.4-10.4); Monocytes # (auto) 0.28 K/uL (0.11-0.59); Monocytes % (auto) 6.1 %; Neutrophils # (auto) 3.35 K/uL (1.4-6.5); Neutrophils % (auto) 73.1 %; Platelet Count 135 K/uL (130-400); Platelet Estimate Decreased (Normal)
--- NOTE | 2021-02-06 11:53 | Ultrasound Report ---
US breast LT limited CLINICAL HISTORY: Left breast indurated by injection site COMPARISON STUDY: Chest CT December 02, 2020. TECHNIQUE: Sonography of the left upper chest adjacent to the port at site of induration was performe d. FINDINGS: Left-sided [id number] was noted. No fluid collection was identified on this exam to sugg est an abscess. Subcutaneous fluid is noted within the left upper chest. No mass is identified within the left chest wall IMPRESSION: No fluid collection to suggest an abscess. Mild subcutaneous fluid of the left upper neftali st. ACT 112: Negative or not required by law. Electronically signed by: Rylan Carranza M.D. 02/06/2021 11:52 AM
[2021-02-06] MEDS ORDERED: MoRPHine SULFATE 4 MG/ML 1 ML CARP\\VIAL IV STA (12:10)
[2021-02-06] MEDS ORDERED: VANCOMYCIN HCL 1,250 MG in SODIUM CHLORIDE 0.9% 500 ML IV ONE (12:32)
[2021-02-06] MEDS ORDERED: VANCOMYCIN CONSULT ACTIVE PRN (12:32)
[2021-02-06] MEDS ORDERED: VANCOMYCIN HCL 1,500 MG in SODIUM CHLORIDE 0.9% 500 ML IV ONE (13:00)
[2021-02-06] MEDS ORDERED: MoRPHine SULFATE 4 MG/ML 1 ML CARP\\VIAL IV PRN (13:14)
[2021-02-06] MEDS ORDERED: MoRPHine SULFATE 2 MG/ML CARP IV PRN (13:14)
[2021-02-06 14:04] LABS: Appearance Urine Clear (Clear); Bilirubin Urine Negative (Negative); Blood Urine Negative (Negative); Color Urine Yellow; Glucose Urine UA Negative (Negative); Ketones Urine Negative (Negative); Leukocyte Esterase Urine Negative (Negative); Nitrite Urine Negative (Negative); Protein Urine Negative (Negative); Specific Gravity Urine 1.018 (1.000-1.030); Urobilinogen Urine Negative (Negative)
--- NOTE | 2021-02-06 14:07 | History & Physical Report ---
Date of Service February 06, 2021 Assessment & Plan (1) Extravasation injury of IV catheter site with other complication: Plan: will admit for above diagnossi. An ingredient of her chemotherapy can cause skin necrosis. 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 It is felt this is the etiology of some of her abdominal pain however her pain is also related to pancreatic metastatic disease continnue lovenox. Her weight has decreased, so will need to decrease lovenox dose to maintain 1.5mg/kg (5) Leukopenia: Plan: mildly reduced, will monitor (6) Cancer associated pain: Plan: Patient on a complex pain medication regiment managed by palliative care, at the time of her last discharge her medications were also adjusted, she is on fentanyl 75 mcg patch every 72, hydromorphone 4 mg p.o. routinely every 4 hours, and during her last admission her methadone was increased from 5 twice daily to 10 twice daily. 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 Patient has completed Gemcitabine and Abraxane and between July 22 2020 to November 28, 2020. Patient's been following with heme-onc at [facility] as well as Dr. Angelina Humphrey for palliative care. Her disease has progressed with multiple liver lesions suggesting liver metastasis. Patient recently started on modified FOLFOX 6 without 5FU bolus. However, patient had extravasation of her chemotherapy and it leaked to her left chest. This occurred on this January 28, 2021. Since then she has noticed a small area of erythema and pain, however this has gradually increased in size. Patient was told to come to the ER if the size increased depsite being on antibiotics. Patient's care is taken Dilaudid methadone and gabapentin for pain relief. She also takes Zofran and Compazine for nausea. Despite Allergies Allergy/AdvReac Type Severity Reaction Status Date / Time latex Allergy Intermediate rash Verified 02/06/21 12:05 sulfamethoxazole Allergy Intermediate itching, Verified 02/06/21 12:05 chest tightness trimethoprim Allergy Intermediate itching, Verified 02/06/21 12:05 chest tightness adhesive Allergy Unknown ITCHY SKIN Verified 02/06/21 12:05 clindamycin AdvReac Severe Diarrhea Verified 02/06/21 12:05 doxycycline AdvReac Intermediate nausea and Verified 02/06/21 12:05 vomiting Home Medications Medication Instructions Recorded Confirmed Type multivitamin (Daily Multi-Vitamin) 1 tab PO QAM 10/26/18 02/06/21 History naloxone 4 mg/actuation nasal 4 mg INTRANASAL Q2M PRN #2 ea 06/24/20 02/06/21 Rx spray (Narcan) ondansetron HCl 8 mg tablet 8 mg PO TID 08/01/20 02/06/21 History prochlorperazine maleate 10 mg 10 mg PO TID 08/01/20 02/06/21 History tablet (Compazine) ergocalciferol (vitamin D2) 1,250 1,250 mcg PO WK 08/18/20 02/06/21 History mcg (50,000 unit) capsule (Vitamin D2) enoxaparin 150 mg/mL subcutaneous See Rx Instructions SUBCUT DAILY 09/09/20 02/06/21 Rx syringe #10 ml fentanyl 50 mcg/hr transdermal 50 mcg TRANSDERMAL Q72H #10 ea 12/17/20 02/06/21 Rx patch bupropion HCl 100 mg tablet 100 mg PO QAM tab 01/07/21 02/06/21 History buspirone 30 mg tablet 30 mg PO HS tab 01/07/21 02/06/21 History lorazepam 1 mg tablet 1 mg PO .COMPLEX PRN #90 tab 01/24/21 02/06/21 Rx cephalexin 500 mg capsule 500 mg PO TID 10 Days #30 cap 02/04/21 02/06/21 Rx lidocaine-prilocaine 2.5 %-2.5 % 1 applic TOPICAL ONCE #30 g 02/04/21 02/06/21 Rx topical cream atorvastatin 40 mg tablet (Lipitor) 40 mg PO QAM 02/06/21 02/06/21 History buspirone 10 mg tablet 10 mg PO QAM 02/06/21 02/06/21 History gabapentin 800 mg tablet 800 mg PO TID 02/06/21 02/06/21 History (Neurontin) hydromorphone 4 mg tablet 6 mg PO Q4H 02/06/21 02/06/21 History (Dilaudid) methadone 5 mg tablet 10 mg PO BID 02/06/21 02/06/21 History pantoprazole 40 mg tablet,delayed 40 mg PO QAM 02/06/21 02/06/21 History release (Protonix) Past Med/Surg History Medical History Acute pancreatitis Cellulitis of leg, right Constipation Diabetes Headache History of uterine fibroid Hyperlipidemia Hypertension Intractable vomiting Iron deficiency anemia Migraine (09/09/12) Nausea & vomiting Pancreatic cancer Pancreatic duct stricture Pancreatitis, acute Panic attack (09/09/12) PMB (postmenopausal bleeding) Restless legs syndrome Superior mesenteric vein thrombosis Surgical History 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 Umanzor 07/10/2020 S/P surgical removal of pilonidal cyst Family History Sister Endometrial cancer Arthritis Celiac disease Hypertension Diabetes Mother Hypertension Congestive heart failure (CHF) Kidney failure Heart disease Father Parkinson disease Myocardial infarction Graves disease Skin cancer Denies family history of Ovarian cancer Prostate cancer Breast cancer Colorectal cancer Social History Smoking Status: Former smoker Tobacco Type: Cigarettes Age Started Using Tobacco: 21; Age Quit Using Tobacco: 58; packs per day: 1; Years Smoked: 37; Cigarettes Per Day: 2; Number of Years Since Quit: 1; Second Hand Exposure: No; Hx Alcohol Use: No Hx Substance Use: No Preferred Language: Latvian Communication Ability: Effective Visual Impairment: No Limitations Hearing Ability: Normal Technology Trainer Required: No Beliefs That Will Affect Care: None marital status: Single Current Living Situation: Family Current Living Situation Comment: with sister current occupational status: disabled Feels Safe at Home: Yes Childhood Exposure to Second-Hand Smoke: No Dental Care, Regularly: No Physical Activity Frequency: Does not Exercise Seatbelt Use: always Sunscreen Use: Yes Assistive Devices: Glasses Review of Systems Review of Systems: All systems reviewed & are unremarkable except as noted in HPI & below Physical Exam Physical Exam: The patient appeared well nourished and normally developed. Vital signs as documented. Head exam is normocephalic atraumatic she is with alopecia very little hair Neck is without JVD, thyromegaly, or carotid bruits. Lungs are clear to auscultation exception of absent breath sounds to her left base, where she has chronic elevation of her left hemidiaphragm Cardiac exam, Rhythm is regular.. No murmurs, rubs or gallops. Abdominal exam reveals normal bowel sounds, soft non tender, no masses left breast has large clearly defined area of erythema. left breast appears larger. Neurologic exam is alert and oriented, no focal loss of strength or sensation Skin is without bruises or rashes Results & Data Results & Data ([facility]) Vital Signs (Past 12 Hours) Vital Signs Temp Pulse Pulse Resp BP BP Pulse Ox 02/06/21 13:53 78 18 146/85 H 96 02/06/21 13:30 18 96 02/06/21 13:00 16 95 02/06/21 12:30 18 97 02/06/21 12:00 74 18 132/85 96 02/06/21 11:30 16 96 02/06/21 11:00 82 18 128/86 97 02/06/21 10:41 79 17 125/82 96 02/06/21 09:39 35.7 C L 88 20 132/87 98 PG Care Time/CCT Total # of Minutes Spent Total Time Spent with Patient: Total time spent is greater than 50% in coordination of care (as documented) at patient's floor/unit and/or counseling patient: Coding Level of Care Code 43870 Initial Inpt Care Lvl 3 Diagnoses Extravasation injury of IV catheter site with other complication T82.898A Anxiety F41.9 Pancreatic cancer C25.9 Superior mesenteric vein thrombosis K55.069 Leukopenia D72.819 Leukopenia type: unspecified Cancer associated pain G89.3 Time Spent (min) 35 (1) Leukopenia Leukopenia type: unspecified Qualified Code(s): D72.819 - Decreased white blood cell count, unspecified
[2021-02-06] MEDS ORDERED: NALOXONE NASAL SPRAY 4 MG ER HOMEPACK PRN (14:12)
[2021-02-06] MEDS ORDERED: VANCOMYCIN HCL 250 MG in 0.9 % SODIUM CHLORIDE 100 ML IV ONE (14:30)
--- NOTE | 2021-02-06 15:13 | Surgery Consultation ---
Date of Consultation February 06, 2021 Assessment & Plan (1) Cellulitis of chest wall: Patient status post extravasation of chemotherapy The tissue over the port actually looks relatively good The erythema is most likely from a chemical inflammation And not necessarily infection Would likely be good to be placed on IV antibiotics We will need to monitor the tissue for necrosis Also for fever and potential positive blood cultures which would require port removal History of Present Illness History of Present Illness 61-year-old female presenting the emergency room with soreness and pain around her left chest port Patient is undergoing chemotherapy for pancreatic cancer with Dr. Lara the [facility] group Apparently she did have chemotherapy 2 days prior with some extravasation Allergies Allergy/AdvReac Type Severity Reaction Status Date / Time latex Allergy Intermediate rash Verified 02/06/21 12:05 sulfamethoxazole Allergy Intermediate itching, Verified 02/06/21 12:05 chest tightness trimethoprim Allergy Intermediate itching, Verified 02/06/21 12:05 chest tightness adhesive Allergy Unknown ITCHY SKIN Verified 02/06/21 12:05 clindamycin AdvReac Severe Diarrhea Verified 02/06/21 12:05 doxycycline AdvReac Intermediate nausea and Verified 02/06/21 12:05 vomiting Home Medications Medication Instructions Recorded Confirmed Type multivitamin (Daily Multi-Vitamin) 1 tab PO QAM 10/26/18 02/06/21 History naloxone 4 mg/actuation nasal 4 mg INTRANASAL Q2M PRN #2 ea 06/24/20 02/06/21 Rx spray (Narcan) ondansetron HCl 8 mg tablet 8 mg PO TID 08/01/20 02/06/21 History prochlorperazine maleate 10 mg 10 mg PO TID 08/01/20 02/06/21 History tablet (Compazine) ergocalciferol (vitamin D2) 1,250 1,250 mcg PO WK 08/18/20 02/06/21 History mcg (50,000 unit) capsule (Vitamin D2) enoxaparin 150 mg/mL subcutaneous See Rx Instructions SUBCUT DAILY 09/09/20 02/06/21 Rx syringe #10 ml fentanyl 50 mcg/hr transdermal 50 mcg TRANSDERMAL Q72H #10 ea 12/17/20 02/06/21 Rx patch bupropion HCl 100 mg tablet 100 mg PO QAM tab 01/07/21 02/06/21 History buspirone 30 mg tablet 30 mg PO HS tab 01/07/21 02/06/21 History lorazepam 1 mg tablet 1 mg PO .COMPLEX PRN #90 tab 01/24/21 02/06/21 Rx cephalexin 500 mg capsule 500 mg PO TID 10 Days #30 cap 02/04/21 02/06/21 Rx lidocaine-prilocaine 2.5 %-2.5 % 1 applic TOPICAL ONCE #30 g 02/04/21 02/06/21 Rx topical cream atorvastatin 40 mg tablet (Lipitor) 40 mg PO QAM 02/06/21 02/06/21 History buspirone 10 mg tablet 10 mg PO QAM 02/06/21 02/06/21 History gabapentin 800 mg tablet 800 mg PO TID 02/06/21 02/06/21 History (Neurontin) hydromorphone 4 mg tablet 6 mg PO Q4H 02/06/21 02/06/21 History (Dilaudid) methadone 5 mg tablet 10 mg PO BID 02/06/21 02/06/21 History pantoprazole 40 mg tablet,delayed 40 mg PO QAM 02/06/21 02/06/21 History release (Protonix) Patient History Medical History Acute pancreatitis Cellulitis of leg, right Constipation Diabetes Headache History of uterine fibroid Hyperlipidemia Hypertension Intractable vomiting Iron deficiency anemia Migraine (09/09/12) Nausea & vomiting Pancreatic cancer Pancreatic duct stricture Pancreatitis, acute Panic attack (09/09/12) PMB (postmenopausal bleeding) Restless legs syndrome Superior mesenteric vein thrombosis Surgical History History of excision of lesion History of laparoscopic cholecystectomy Port-A-Cath in place (07/10/20) S/P surgical removal of pilonidal cyst Family History Sister Endometrial cancer Arthritis Celiac disease Hypertension Diabetes Mother Hypertension Congestive heart failure (CHF) Kidney failure Heart disease Father Parkinson disease Myocardial infarction Graves disease Skin cancer Denies family history of Ovarian cancer Prostate cancer Breast cancer Colorectal cancer Social History Smoking Status: Former smoker Tobacco Type: Cigarettes Age Started Using Tobacco: 21; Age Quit Using Tobacco: 58; packs per day: 1; Years Smoked: 37; Cigarettes Per Day: 2; Number of Years Since Quit: 1; Second Hand Exposure: No; Hx Alcohol Use: No Hx Substance Use: No Preferred Language: Albanian Communication Ability: Effective Visual Impairment: No Limitations Hearing Ability: Normal Decal Maker Required: No Beliefs That Will Affect Care: None marital status: Single Current Living Situation: Family Current Living Situation Comment: with sister current occupational status: disabled Feels Safe at Home: Yes Childhood Exposure to Second-Hand Smoke: No Dental Care, Regularly: No Physical Activity Frequency: Does not Exercise Seatbelt Use: always Sunscreen Use: Yes Assistive Devices: Glasses Review of Systems Review of Systems: All systems reviewed & are unremarkable except as noted in HPI & below Physical Exam Physical Exam: Patient's left chest shows an area of erythema and induration inferior and lateral to the left chest port The skin overlying the port appears to be relatively normal There is no evidence of skin necrosis only erythema which has been circled Constitutional: + ill appearing; no acute distress Eyes: + anicteric sclerae Respiratory: normal respiratory effort; no respiratory distress Cardiovascular: Rate/Rhythm: regular rate Chest (Breasts): Chest: + vascular access device or port Gastrointestinal (Abdomen): Inspection/Auscultation: abdomen not distended Musculoskeletal: Head/Neck/Chest: head atraumatic Skin: no rashes, warm and dry Changes noted in the initial exam segment Neurologic: awake Psychiatric: Orientation: alert Results & Data ([facility]) Vital Signs (Past 12 Hours) Vital Signs Temp Pulse Pulse Resp BP BP Pulse Ox 02/06/21 14:00 79 16 131/76 95 02/06/21 13:53 78 18 146/85 H 96 02/06/21 13:30 18 96 02/06/21 13:00 16 95 02/06/21 12:30 18 97 02/06/21 12:00 74 18 132/85 96 02/06/21 11:30 16 96 02/06/21 11:00 82 18 128/86 97 02/06/21 10:41 79 17 125/82 96 02/06/21 09:39 35.7 C L 88 20 132/87 98 PG Care Time/CCT Total # of Minutes Spent Total Time Spent with Patient: Total time spent is greater than 50% in coordination of care (as documented) at patient's floor/unit and/or counseling patient: Coding Level of Care Code 29183 Inpt Consult Level 3 Diagnoses Cellulitis of chest wall L03.313
--- NOTE | 2021-02-06 15:15 | Electrocardiogram Report ---
Test Reason : Blood Pressure : / mmHG Vent. Rate : 079 BPM Atrial Rate : 079 BPM P-R Int : 116 ms QRS Dur : 078 ms QT Int : 388 ms P-R-T Axes : 004 009 023 degrees QTc Int : 444 ms Normal sinus rhythm Low voltage QRS Borderline ECG When compared with ECG of 02-SEP-2020 15:12, T wave amplitude has decreased in Anterior leads Confirmed by Ray Gomez ([id number]) on 02/06/2021 3:15:36 PM Referred By: REFERRED SELF Confirmed By:Ray Gomez
[2021-02-06] MEDS ORDERED: NALOXONE HCL 0.4 MG/1 ML VIAL/CARP IV PRN (16:01)
--- NOTE | 2021-02-06 16:30 | CT Scan Report ---
CT OF THE CHEST WITHOUT IV CONTRAST CLINICAL HISTORY: Extravasation of chemotherapy. Possible left breast necrosis. Pancreatic cancer. COMPARISON STUDY: Chest CT December 02, 2020. Left breast ultrasound performed earlier today. CT DOSE: 224.67 mGy.cm TECHNIQUE: Axial images of the chest were obtained without IV contrast. Images were reviewed in the axial, sagittal, and coronal planes. IV contrast was not administered for this examination. Automat ed exposure control was utilized for the study. A dose lowering technique was utilized adhering to he principles of ALARA. FINDINGS: A left subclavian Lowiga-m-Jiba is in place. The tip is within the distal SVC. Note is mad e of extensive left breast stranding and edema. There is also pronounced left breast skin thickening. No soft tissue gas is present. No loculated fluid collection is identified. Elevation of the left he midiaphragm is unchanged. Note is made of mild cardiomegaly. A few mildly enlarged distal paraesophag eal lymph nodes are noted. These have increased in size since prior CT. These are hypodense. No pneum othorax or pleural effusion is noted. There has been interval development of numerous small irregular pulmonary nodule since prior CT. A 1.2 cm subpleural right lower lobe nodular opacity has increased in size since prior exam. No suspicious lesions are identified within the bony thorax. Trace perihepa tic ascites is noted. Numerous hypodense hepatic lesions represent metastases. These are suboptimally assessed on this unenhanced exam. These have increased in size since CT of December 02, 2020. Index ri ght hepatic dome lesion measures 2.8 cm. Pancreatic ductal dilatation is partially imaged on this exa m. IMPRESSION: 1. Pronounced left breast skin thickening and extensive edema throughout the left breast and adjacent soft tissues. Although nonspecific, the findings are likely related to chemotherapy extravasation. N o soft tissue gas. No loculated fluid collection. 2. Interval development of numerous irregular small pulmonary nodules suggestive of metastases. 3. Increase in size of hepatic metastases, suboptimally assessed on this unenhanced exam. Interval de velopment of distal paraesophageal lymphadenopathy. ACT 112: Negative or not required by law. Electronically signed by: Rylan Carranza M.D. 02/06/2021 4:29 PM
[2021-02-06] MEDS: HYDROmorphone HCL 2 MG TAB PO PRN ×2 (18:10→22:28)
[2021-02-06] MEDS: fentaNYL 50 MCG/HR TDSY TD SCH (18:17)
[2021-02-06] MEDS: PROCHLORPERAZINE MALEATE 10 MG TAB PO SCH (19:47)
[2021-02-06] MEDS: GABAPENTIN 800 MG TAB PO SCH (19:47)
[2021-02-06] MEDS: busPIRone 15 MG TAB PO SCH (19:48)
[2021-02-06] MEDS: LORazepam 1 MG TAB PO SCH (20:05)
[2021-02-06] MEDS ORDERED: ondansetron HCL 6 MG in DEXTROSE 5% 50 ML IV PRN (20:21)
--- NOTE | 2021-02-06 21:42 | Pharmacy Report ---
Pharmacy Abx Dose Short Note - Date of Service February 06, 2021 - Assessment & Plan Assessment 61 year old F receiving VANCOMYCIN for treatment of chest wall cellulitis associated with recent extravasation of chemotherapy at A-port site Plan Vancomycin * Documentation of vancomycin doses given thus far is unclear. 250mg dose is charted against. 1250mg was cancelled in system, however may have been administered? Random level obtained = 9. * Patient meets criteria for vancomycin AUC dosing nomogram * AUC/BERNA is the preferred PK/PD target for vancomycin * Target AUC/BERNA = 400-600 * AUC guided dosing is effective and associated with decreased risk of nephrotoxicity * Will begin a maint dose of 1000mg IV Q 12 hours. Our Bayesian model may have been adversely affected by uncertain documentation of first dose(s), therefore will be slightly more aggressive than model recommends with f/u of level in 36 hours. Pharmacy will continue to follow and will adjust dose/frequency as necessary. Thank you.
[2021-02-06] MEDS ORDERED: VANCOMYCIN HCL 1,000 MG in SODIUM CHLORIDE 0.9% 250 ML IV ONE (21:45)
[2021-02-06 22:32] LABS: Est GFR (African American) 119.6 ml/min; Est GFR (Non-African American) 103.2 ml/min
[2021-02-07] MEDS: CHECK fentaNYL PATCH PLACEMENT SCH ×3 (00:03→16:43)
[2021-02-07] MEDS: ONDANSETRON 8MG OD TAB PO SCH ×3 (00:03→16:43)
[2021-02-07] MEDS: METHADONE HCL 5 MG TAB PO SCH ×2 (00:09→08:00)
[2021-02-07] MEDS: LORazepam 1 MG TAB PO PRN (01:33)
[2021-02-07] MEDS: HYDROmorphone HCL 2 MG TAB PO PRN ×4 (02:29→18:35)
[2021-02-07] MEDS: GABAPENTIN 800 MG TAB PO SCH ×3 (04:51→20:08)
[2021-02-07] MEDS: PROCHLORPERAZINE MALEATE 10 MG TAB PO SCH ×3 (04:51→20:08)
[2021-02-07] MEDS ORDERED: ENOXAPARIN 150 MG/ML SYR SQ SCH (08:00)
[2021-02-07] MEDS: buPROPion SR 100 MG TABCR PO SCH (08:45)
[2021-02-07] MEDS: ATORVASTATIN 40 MG TAB PO SCH (08:45)
[2021-02-07] MEDS: ERGOCALCIFEROL 50,000 UNITS 1250 MCG CAP PO SCH (08:46)
[2021-02-07] MEDS: busPIRone 5 MG TAB PO SCH (08:46)
[2021-02-07] MEDS: PANTOprazole 40 MG TAB PO SCH (08:47)
[2021-02-07] MEDS: MULTIVITAMIN TAB PO SCH (08:47)
[2021-02-07] MEDS: VANCOMYCIN HCL 1,000 MG in SODIUM CHLORIDE 0.9% 250 ML IV SCH ×2 (08:53→20:09)
[2021-02-07] MEDS: ENOXAPARIN 100 MG/1ML SYR SQ SCH (10:34)
--- NOTE | 2021-02-07 12:55 | Surgery Progress Note ---
Date of Service February 07, 2021 Assessment & Plan (1) Extravasation injury of IV catheter site with other complication: Plan: Continue to monitor patient closely Continue antibiotics Would keep at least 2 to 3 days to assess for skin necrosis No plan for surgical intervention at this time Dr. Umanzor is covering over the weekend Admission and Anticipated Discharge Date Admission Date: February 06, 2021 Subjective Patient is walking around her room in no distress patient is walking around her room in no distress She did have a low-grade fever 37 7 She does have some soreness Her CT scan did not show any significant fluid collection but inflammation of the breast tissue and skin Review of Systems Review of Systems: All systems reviewed & are unremarkable except as noted in HPI & below Physical Exam Physical Exam: She does have significant induration and erythema in the area of drainage inferior and lateral to the port site Constitutional: well developed and well nourished; no acute distress Eyes: + anicteric sclerae Respiratory: normal respiratory effort; no respiratory distress Cardiovascular: Rate/Rhythm: regular rate Gastrointestinal (Abdomen): Percussion/Palpation: abdomen soft Musculoskeletal: Gait: normal gait Skin: no rashes, warm and dry Neurologic: awake Psychiatric: Orientation: alert Results & Data ([facility]) Vital Signs (Past 12 Hours) Vital Signs Temp Pulse Resp BP Pulse Ox 02/07/21 07:34 37.1 C 74 16 99/61 L 96 PG Care Time/CCT Total # of Minutes Spent Total Time Spent with Patient: Total time spent is greater than 50% in coordination of care (as documented) at patient's floor/unit and/or counseling patient: Coding Level of Care Code 08875 Subseq Hosp Care Lvl 3 Diagnoses Extravasation injury of IV catheter site with other complication T82.898A
[2021-02-07] MEDS: busPIRone 15 MG TAB PO SCH (20:08)
[2021-02-07] MEDS: LORazepam 1 MG TAB PO SCH (20:08)
--- NOTE | 2021-02-07 20:51 | Hospitalist Progress Note ---
Date of Service February 07, 2021 Assessment & Plan (1) Cellulitis of chest wall: Plan: Left upper chest near her port. Had extravasation of her chemo about 10 days ago. Port needle ultimately deaccessed. Erythema worsened this week; started on po keflex by palliative care. Symptoms/signs worsened leading to her hospital stay. Now on vancomycin. Add rocephin for better strep coverage. Follow blood cx's. (2) Extravasation injury of IV catheter site with other complication: Plan: see #1 above appreciate gen surg consult and recs CT chest findings noted (3) Abnormal LFTs: Plan: likely due to worsening liver mets repeat LFTs in am consider repeat imaging to ensure no CBD obstruction but t.bili noted to be normal making that less likely (4) Cancer associated pain: Plan: on chronic, complex regimen of meds including fentanyl patch, methadone BID, dilaudid PO prn d/c dilaudid prn change to IV dilaudid we discussed the potential for SCREW[employer]ER [employer]ER dilaudid if she needs such this weekend follows with Dr Humphrey (5) Anxiety: Plan: cont home meds (6) Pancreatic cancer: Plan: stage 4 follows with [facility] - Dr Lara, Pearl Ivanna TORIBIO notes from their office reviewed modified FOLFOX regimen recently despite chemo her disease has progressed significantly over the last 6 months (7) Superior mesenteric vein thrombosis: Plan: lovenox 1.5mg/kg daily (8) Leukopenia: Plan: likely 2nd to recent chemo trend (9) Multiple pulmonary nodules: Plan: noted on CT chest -- 2nd to metastatic pancreatic ca (10) DVT prophylaxis: Plan: lovenox (11) Elevated INR: Plan: likely 2nd to poor liver synthetic function due to infiltration of liver by metastatic disease repeat INR am (12) Severe protein-calorie malnutrition: Plan: 14Kg weight loss since 08/2020 due to stage 4 ca Plan: sister updated at bedside Admission and Anticipated Discharge Date Admission Date: February 06, 2021 Subjective pt resting in bed during the visit sister was at bedside she had several questions about labs, etc we had lengthy discussion about her CT chest findings (worsening pulm and liver mets) we discussed the LFTs (likely due to worsening liver mets) she has ongoing, chronic abd pain - perhaps modestly worse than baseline pain also over the left chest/breast from cellulitis using PO dilaudid frequently - chronic med for her at home has lost a significant amount of weight over the last 3-4 months appetite poor she was tearful while we discussed test results Review of Systems Review of Systems: gen - warm/cold chills / sweats, poor appetite CV - chest wall pain but no substernal cp pulm - no congestion or cough GI - no N/V; moving her bowels Physical Exam Physical Exam: gen - in comparison to the last time I saw her in the hospital she is very thin with facial muscle wasting; NAD; very tearful mouth - no thrush neck - no JVD heart - RRR, s1 s2, no murmur lungs - CTA b/l abd - liver edge palpable, irregular in shape, tender; BS+; no pain other locations of abdomen ext - no edema chest wall - port site with surrounding induration and erythema; the erythema extends in several directions but most prominently inferiorly to the Left breast and onto the tail of the breast this area has no crepitus; minimally tender to touch (the port area) psych - tearful Results & Data Results & Data ([facility]) Vital Signs (Past 12 Hours) Vital Signs Temp Pulse Resp BP Pulse Ox 02/07/21 16:00 37.1 C 77 18 112/70 93 Laboratory Results blood cx's to date negative PG Care Time/CCT Total # of Minutes Spent Total Time Spent with Patient: Total time spent is greater than 50% in coordination of care (as documented) at patient's floor/unit and/or counseling patient: Coding Level of Care Code 33770 Subseq Hosp Care Lvl 3 Diagnoses Extravasation injury of IV catheter site with other complication T82.898A Anxiety F41.9 Pancreatic cancer C25.9 Superior mesenteric vein thrombosis K55.069 Leukopenia D72.819 Leukopenia type: unspecified Cancer associated pain G89.3 Cellulitis of chest wall L03.313 Multiple pulmonary nodules R91.8 DVT prophylaxis Z29.9 Abnormal LFTs R94.5 Elevated INR R79.1 Severe protein-calorie malnutrition E43 (1) Leukopenia Leukopenia type: unspecified Qualified Code(s): D72.819 - Decreased white blood cell count, unspecified
[2021-02-07] MEDS: HYDROmorphone INJ 1 MG/ML SYRINGE IV PRN (21:38)
[2021-02-07] MEDS: cefTRIAXone SODIUM 2,000 MG in DEXTROSE 5% 50 ML IV SCH (22:53)
[2021-02-08] MEDS: METHADONE HCL 5 MG TAB PO SCH ×3 (00:09→23:21)
[2021-02-08] MEDS: ONDANSETRON 8MG OD TAB PO SCH ×4 (00:09→23:21)
[2021-02-08] MEDS: CHECK fentaNYL PATCH PLACEMENT SCH ×4 (00:10→23:22)
[2021-02-08] MEDS: HYDROmorphone INJ 1 MG/ML SYRINGE IV PRN ×4 (01:42→11:07)
[2021-02-08] MEDS: PROCHLORPERAZINE MALEATE 10 MG TAB PO SCH ×3 (05:29→19:42)
[2021-02-08] MEDS: GABAPENTIN 800 MG TAB PO SCH ×3 (05:29→19:41)
[2021-02-08] MEDS ORDERED: VANCOMYCIN TROUGH ONE (08:30)
[2021-02-08 08:47] LABS: Mean Corpuscular Hgb Conc 31.6 g/dL (32-36)
[2021-02-08 08:58] LABS: INR 1.3 (0.9-1.1); Prothrombin Time 12.5 Seconds (9.0-12.0)
[2021-02-08 09:06] LABS: Hematocrit (blood only) 35.4 % (37-47); Hemoglobin 11.2 g/dL (12.0-16.0); Mean Corpuscular Hemoglobin 24.6 pg (25-34); Mean Corpuscular Volume 77.8 fL (80-100); RDW Coefficient of Variation 17.8 % (11.5-14.5); RDW Standard Deviation 49.7 fL (36.4-46.3); Red Blood Count 4.55 M/uL (4.2-5.4)
[2021-02-08 09:17] LABS: Albumin Level 2.4 gm/dl (3.4-5.0); BUN Creatinine Ratio 12.8 (10-20); Calcium 8.5 mg/dl (8.5-10.1); Creatinine Clr Calc Pharmacy 103.1 ml/min; Est GFR (African American) 118.2 ml/min; Est GFR (Non-African American) 101.9 ml/min; Potassium 4.1 mmol/L (3.5-5.1)
[2021-02-08 09:20] LABS: Albumin Globulin Ratio 0.8 (0.9-2); Bilirubin,Total 0.4 mg/dl (0.2-1); Total Protein 5.4 gm/dl (6.4-8.2)
[2021-02-08] MEDS: busPIRone 5 MG TAB PO SCH (09:27)
[2021-02-08] MEDS: ATORVASTATIN 40 MG TAB PO SCH (09:27)
[2021-02-08] MEDS: buPROPion SR 100 MG TABCR PO SCH (09:27)
[2021-02-08] MEDS: MULTIVITAMIN TAB PO SCH (09:28)
[2021-02-08] MEDS: ENOXAPARIN 100 MG/1ML SYR SQ SCH (09:28)
[2021-02-08] MEDS: cefTRIAXone SODIUM 2,000 MG in DEXTROSE 5% 50 ML IV SCH (09:28)
[2021-02-08] MEDS: PANTOprazole 40 MG TAB PO SCH (09:29)
[2021-02-08] MEDS: VANCOMYCIN HCL 1,000 MG in SODIUM CHLORIDE 0.9% 250 ML IV SCH ×2 (09:29→10:24)
[2021-02-08 09:40] LABS: Basophils # (auto) 0.01 K/uL (0-0.2); Basophils % (auto) 0.2 %; Eosinophils # (auto) 0.07 K/uL (0-0.5); Eosinophils % (auto) 1.7 %; Lymphocytes # (auto) 0.75 K/uL (1.2-3.4); Lymphocytes % (auto) 17.9 %; Mean Platelet Volume 10.8 fL (7.4-10.4); Monocytes # (auto) 0.36 K/uL (0.11-0.59); Monocytes % (auto) 8.6 %; Neutrophils # (auto) 3.01 K/uL (1.4-6.5); Neutrophils % (auto) 71.6 %; Platelet Count 121 K/uL (130-400); Platelet Estimate Decreased (Normal)
--- NOTE | 2021-02-08 09:50 | Pharmacy Report ---
Pharmacy Vanc AUC Short Note - Date of Service February 08, 2021 - Assessment & Plan Assessment 61 year old F receiving VANCOMYCIN for treatment of cellulitis. Plan Vancomycin * AUC/BERNA is the preferred PK/PD target for vancomycin * AUC guided dosing is effective and associated with decreased risk of nephrotoxicity compared to traditional trough targets * Trough level of 8.2 mcg/mL is not predicted to achieve target AUC/BERNA of 400- 600 mg/L.hr, however this was drawn prior to steady state, current dosing does suggest AUC of 422, but will increase dose to 1250 mg which predicts and AUC of 527 mg/L.hr and may be associated with a 9 % risk of nephrotoxicity * Change to 1250 mg IV every 12 hours * Trough to be repeated in 2-3 days if continued admission. Pharmacy will continue to follow and will adjust dose/frequency as necessary. Thank you.
[2021-02-08] MEDS ORDERED: OPTIRAY 320 100ml IV ONE (10:55)
--- NOTE | 2021-02-08 11:28 | CT Scan Report ---
CT OF THE ABDOMEN AND PELVIS WITH CONTRAST CLINICAL HISTORY: Metastatic pancreatic cancer. Elevated liver function tests. Evaluate for biliary o bstruction. COMPARISON STUDY: CT of the abdomen and pelvis December 02, 2020. MRI of the abdomen December 11, 2020. TECHNIQUE: Following IV administration of 98 mL of Optiray, axial images of the abdomen and pelvis we re obtained from the lung bases to the proximal femurs. Images were reviewed in the axial, sagittal, and coronal planes. IV contrast was administered without complication. Automated exposure control wa s utilized for the study. A dose lowering technique was utilized adhering to the principles of ALARA . CT DOSE: 338.88 mGy.cm FINDINGS: Elevation of the left hemidiaphragm is unchanged. Left breast skin thickening and diffuse s tranding and edema is partially imaged. This was shown on chest CT of February 06, 2021. Multiple smal l irregular nodules within the lower lungs are noted. These have increased in size and number since p rior CT. These measure up to 1.2 cm. No pneumatosis, free air or portal venous gas is present. There has been increase in size and number of numerous hepatic metastases since prior CT and MRI. These measure up to 3.2 cm. Right hepatic lobe hemangioma is noted. Capsular implants overlying the liver are noted. There are multiple peritoneal implants. A small amount of abdominal and pelvic ascites is noted. Splenomegaly is unchanged. 3.4 cm hypodense splenic lesion is unchanged. This is benign. There is mild intra and extra hepatic biliary ductal dilatation. Common bile duct measures 9 mm in caliber. Caliber change of the common bile duct at the level of the pancreatic head mass is noted. Pancreatic ductal dilatation with abrupt cut off i s noted. A necrotic head and uncinate process mass measures approximately 6.3 cm. This is increased i n size since prior exam. Adjacent lymphadenopathy is noted. The superior mesenteric artery is encased . Occlusion of the portosplenic confluence is again noted. There are associated collaterals. There is no hydronephrosis. There is no evidence for a bowel obstruction. No acute fracture or suspicious les ion is identified within the visualized skeletal structures. IMPRESSION: 1. Increase in size and number of numerous hepatic metastases since prior CT and MRI. Progression of pulmonary metastases and interval development of peritoneal implants with a small amount of abdominal and pelvic ascites. 2. Mild biliary ductal dilatation, as described above. 3. Increase in size of the pancreatic head mass with occlusion of the portosplenic confluence and enc asement of the superior mesenteric artery. 4. Left breast skin thickening and diffuse edema, as shown on prior chest CT. ACT 112: Negative or not required by law. Electronically signed by: Rylan Carranza M.D. 02/08/2021 11:27 AM
[2021-02-08] MEDS: LORazepam 1 MG TAB PO PRN (12:04)
--- NOTE | 2021-02-08 12:17 | Hospitalist Progress Note ---
Date of Service February 08, 2021 Assessment & Plan (1) Cellulitis of chest wall: Plan: IMPROVING. Left upper chest near her port w/ extension to L breast. Had extravasation of her chemo about 10 days ago. Port needle ultimately deaccessed. Cont vancomycin. Cont rocephin. Follow blood cx's. (2) Extravasation injury of IV catheter site with other complication: Plan: see #1 above appreciate gen surg consult and recs CT chest findings noted may use heating pad for comfort (3) Abnormal LFTs: Plan: due to worsening liver mets mild CBD dilatation on CT but no evidence of obstruction or cholangitis (total bili normal) there are now peritoneal implants on CT and ascites all concerning for carcinomatosis which will cont to worsen and cause pain pancreatic mass also worse (4) Cancer associated pain: Plan: on chronic, complex regimen of meds including fentanyl patch, methadone BID, dilaudid PO prn d/c dilaudid IV/PO prn change to IV dilaudid FLIGHT SURGEON no basal lock-out 20 min demand dose 0.3mg to start adjust as needed for optimal pain control follows with Dr Humphrey consult Dr Humphrey tomorrow (5) Anxiety: Plan: cont home meds (6) Pancreatic cancer: Plan: stage 4 follows with [facility] - Dr Lara, Pearl Ivanna TORIBIO notes from their office reviewed modified FOLFOX regimen recently despite chemo her disease has progressed significantly over the last 6 months - worsening lung mets, liver mets, peritoneal implants, increased size of pancreatic mass, etc best option would be palliative care/hospice as she is not responding to chemo and lives with significant pain daily we briefly talked about this today (ie stopping chemo) with her sister at bedside will consult Dr Humphrey from palliative care team (7) Superior mesenteric vein thrombosis: Plan: lovenox 1.5mg/kg daily anti-factor Xa level tomorrow (8) Leukopenia: Plan: likely 2nd to recent chemo trend (9) Multiple pulmonary nodules: Plan: noted on CT chest -- 2nd to metastatic pancreatic ca (10) DVT prophylaxis: Plan: lovenox (11) Elevated INR: Plan: likely 2nd to poor liver synthetic function due to infiltration of liver by metastatic disease + lovenox repeat INR today unchanged (12) Severe protein-calorie malnutrition: Plan: 14Kg weight loss since 08/2020 due to stage 4 ca Plan: sister updated at bedside once again support given to patient focus on optimal pain control Admission and Anticipated Discharge Date Admission Date: February 06, 2021 Subjective patient was using the IV dilaudid q3h nearly scheduled the dilaudid was only holding her pain for about 1.5 hours I ordered FLIGHT SURGEON dilaudid (no basal since she is on Fentanyl patch) came to bedside - she reported that Left chest wall pain/breast pain and abd pain are improved with FLIGHT SURGEON no drowsiness with use of FLIGHT SURGEON on AM labs the LFTs were worse today obtained CT abd/pelvis - no evidence of new thrombus, abscess, etc NUMEROUS liver mets present mild CBD dilatation as well a few min into my visit the patient's sister came to bedside we discussed the FLIGHT SURGEON dilaudid, CT results (chest/a/p), and that the chemo she is taking is not helping as her cancer continues to progress we discussed involving Dr Humphrey in her care this admission Review of Systems Review of Systems: gen - no fevers or sweats Pulm - no cough or dyspnea CV - chest wall pain on Left, but no substernal pain GI - no N/V; RUQ pain - severe and ongoing Physical Exam Physical Exam: gen - awake, alert; thin; NAD mouth - no thrush neck - no JVD heart - RRR, s1 s2, no murmur lungs - CTA b/l abd - liver edge palpable, irregular in shape, tender; BS+; no pain other locations of abdomen ext - no edema chest wall - nurse chaperoned me during this portion of exam -- port site with surrounding induration and erythema - IMPROVED today; the erythema extends in several directions but most prominently inferiorly to the Left breast and onto the tail of the breast - this, too, is also improved; erythema retreating, intensity of erythema is improved (mostly pink rather than red); warmth improved; not as tender today psych - tearful again Results & Data Results & Data ([facility]) Vital Signs (Past 12 Hours) Vital Signs Temp Pulse Pulse Resp BP Pulse Ox 02/07/21 23:57 37.2 C 75 14 101/65 95 02/07/21 16:00 37.1 C 77 18 112/70 93 Intake and Output 02/07/21 02/08/21 02/08/21 22:59 06:59 14:59 Intake Total 270 / 860 70 / 860 340 / 340 Balance 270 / 860 70 / 860 340 / 340 Intake: IV 270 / 610 70 / 610 340 / 340 Vancomycin HCl 1,000 mg In 270 / 540 270 / 270 Sodium Chloride 0.9% 250 ml @ 200 mls/hr IV Q12H [facility] Rx#: [id number] cefTRIAXone SODIUM 2,000 mg In 70 / 70 70 / 70 Dextrose 5% 50 ml @ 100 mls/hr IV DAILY [facility] Rx#:[id number] Other: Weight 68 kg Patient Weight 02/09/21 06:59 Weight 68 kg Laboratory Results Laboratory Results - last 24 hr 02/08/21 02/08/21 02/08/21 08:34 08:34 08:34 WBC 4.20 L RBC 4.55 Hgb 11.2 L Hct 35.4 L MCV 77.8 L MCH 24.6 L MCHC 31.6 L RDW Std Deviation 49.7 H RDW Coeff of Natali 17.8 H Plt Count 121 L MPV 10.8 H Immature Gran % (Auto) 0.0 Neut % (Auto) 71.6 Lymph % (Auto) 17.9 [place]atte % (Auto) 8.6 Eos % (Auto) 1.7 Baso % (Auto) 0.2 Neut # (Auto) 3.01 Lymph # (Auto) 0.75 L [place] # (Auto) 0.36 Eos # (Auto) 0.07 Baso # (Auto) 0.01 Immature Gran # (Auto) 0.00 Platelet Estimate Decreased L PT INR Sodium 140 Potassium 4.1 Chloride 106 Carbon Dioxide 28 Anion Gap 5.0 BUN 7 Creatinine 0.55 L Est Cr Clr Drug Dosing 103.1 Est GFR ( Amer) 118.2 Est GFR (Non-Af Amer) 101.9 BUN/Creatinine Ratio 12.8 Glucose 115 H Calcium 8.5 Total Bilirubin 0.4 AST 87 H ALT 85 H Alkaline Phosphatase 384 H Total Protein 5.4 L Albumin 2.4 L Globulin 3.0 Albumin/Globulin Ratio 0.8 L Lipase 48 L Vancomycin Trough 8.2 02/08/21 08:34 WBC RBC Hgb Hct MCV MCH MCHC RDW Std Deviation RDW Coeff of Natali Plt Count MPV Immature Gran % (Auto) Neut % (Auto) Lymph % (Auto) [place]atte % (Auto) Eos % (Auto) Baso % (Auto) Neut # (Auto) Lymph # (Auto) [place]atte # (Auto) Eos # (Auto) Baso # (Auto) Immature Gran # (Auto) Platelet Estimate PT 12.5 H INR 1.3 H Sodium Potassium Chloride Carbon Dioxide Anion Gap BUN Creatinine Est Cr Clr Drug Dosing Est GFR ( Amer) Est GFR (Non-Af Amer) BUN/Creatinine Ratio Glucose Calcium Total Bilirubin AST ALT Alkaline Phosphatase Total Protein Albumin Globulin Albumin/Globulin Ratio Lipase Vancomycin Trough PG Care Time/CCT Total # of Minutes Spent Total Time Spent with Patient: Total time spent is greater than 50% in coordination of care (as documented) at patient's floor/unit and/or counseling patient: Coding Level of Care Code 23862 Subseq Hosp Care Lvl 3 Diagnoses Cellulitis of chest wall L03.313 Extravasation injury of IV catheter site with other complication T82.898A Abnormal LFTs R94.5 Cancer associated pain G89.3 Anxiety F41.9 Pancreatic cancer C25.9 Superior mesenteric vein thrombosis K55.069 Leukopenia D72.819 Leukopenia type: unspecified Multiple pulmonary nodules R91.8 DVT prophylaxis Z29.9 Elevated INR R79.1 Severe protein-calorie malnutrition E43 (1) Leukopenia Leukopenia type: unspecified Qualified Code(s): D72.819 - Decreased white blood cell count, unspecified
[2021-02-08] MEDS ORDERED: HYDROmorphone Bolus from PCA IV STA (13:43)
[2021-02-08] MEDS ORDERED: NALOXONE HCL 0.4 MG/1 ML VIAL/CARP IV PRN (13:43)
[2021-02-08] MEDS: HYDROmorphone PCA 30 MG/30 ML IV PRN (15:05)
[2021-02-08] MEDS: SODIUM CHLORIDE 0.9% 1000ML 1,000 ML IV SCH (15:05)
[2021-02-08] MEDS: busPIRone 15 MG TAB PO SCH (19:41)
[2021-02-08] MEDS: LORazepam 1 MG TAB PO SCH (19:41)
[2021-02-08] MEDS: VANCOMYCIN HCL 1,250 MG in SODIUM CHLORIDE 0.9% 250 ML IV SCH (21:42)
[2021-02-09] MEDS: HYDROmorphone PCA 30 MG/30 ML IV PRN ×2 (05:10→21:21)
[2021-02-09] MEDS: PROCHLORPERAZINE MALEATE 10 MG TAB PO SCH ×3 (05:29→21:15)
[2021-02-09] MEDS: GABAPENTIN 800 MG TAB PO SCH ×3 (05:29→21:15)
[2021-02-09] MEDS: CHECK fentaNYL PATCH PLACEMENT SCH ×2 (08:52→16:12)
[2021-02-09] MEDS: cefTRIAXone SODIUM 2,000 MG in DEXTROSE 5% 50 ML IV SCH (08:57)
[2021-02-09] MEDS: METHADONE HCL 5 MG TAB PO SCH (08:58)
[2021-02-09] MEDS: ENOXAPARIN 100 MG/1ML SYR SQ SCH (08:58)
[2021-02-09] MEDS: ATORVASTATIN 40 MG TAB PO SCH (08:59)
[2021-02-09] MEDS: MULTIVITAMIN TAB PO SCH (08:59)
[2021-02-09] MEDS: buPROPion SR 100 MG TABCR PO SCH (08:59)
[2021-02-09] MEDS: ONDANSETRON 8MG OD TAB PO SCH ×2 (08:59→16:12)
[2021-02-09] MEDS: busPIRone 5 MG TAB PO SCH (08:59)
[2021-02-09] MEDS: PANTOprazole 40 MG TAB PO SCH (08:59)
[2021-02-09] MEDS: VANCOMYCIN HCL 1,250 MG in SODIUM CHLORIDE 0.9% 250 ML IV SCH ×2 (10:01→21:14)
[2021-02-09 12:27] LABS: Albumin Level 2.4 gm/dl (3.4-5.0); BUN Creatinine Ratio 10.9 (10-20); Calcium 8.3 mg/dl (8.5-10.1); Est GFR (African American) 120.4 ml/min; Est GFR (Non-African American) 103.9 ml/min; Potassium 3.9 mmol/L (3.5-5.1)
[2021-02-09 12:28] LABS: Hematocrit (blood only) 35.5 % (37-47); Mean Corpuscular Hemoglobin 24.4 pg (25-34); Mean Corpuscular Volume 78.9 fL (80-100); RDW Coefficient of Variation 17.7 % (11.5-14.5); RDW Standard Deviation 49.9 fL (36.4-46.3); White Blood Count 4.18 K/uL (4.8-10.8)
[2021-02-09 12:31] LABS: Albumin Globulin Ratio 0.7 (0.9-2); Bilirubin,Total 1.3 mg/dl (0.2-1); Globulin 3.3 gm/dl (2.5-4.0); Total Protein 5.7 gm/dl (6.4-8.2)
[2021-02-09 12:43] LABS: Platelet Count 129 K/uL (130-400)
[2021-02-09 12:44] LABS: Mean Platelet Volume 11.4 fL (7.4-10.4)
[2021-02-09] MEDS: fentaNYL 50 MCG/HR TDSY TD SCH (17:32)
--- NOTE | 2021-02-09 19:14 | Hospitalist Progress Note ---
Date of Service February 09, 2021 Assessment & Plan (1) Cellulitis of chest wall: Plan: IMPROVING. Left upper chest near her port w/ extension to L breast. Had extravasation of her chemo about 10 days ago. Cont vancomycin. stop rocephin due to rapidly worsening LFTs. Follow blood cx's. (2) Extravasation injury of IV catheter site with other complication: Plan: see #1 above appreciate gen surg consult and recs CT chest findings noted may use heating pad for comfort pain meds (3) Abnormal LFTs: Plan: new s/p CT abd/pelvis yesterday - worsening pancreatic head mass, ?compression of pancreatic duct, biliary ductal dilatation, carcinomatosis, and worsening liver mets the LFTs are markedly worse today and the t.bili is starting to rise now this is all concerning for CBD obstruction which will place her at risk of cholangitis repeat LFTs in am I discussed her CT over the weekend with on-call GI - at that time nothing to do, but if LFTs and bili cont to rise would need ERCP I called her sister and discussed this issue with her If it ever came down to needing an ERCP I believe the risks far outweigh the benefits I believe we are rapidly approaching full transition to comfort care measures Sister voiced understanding (4) Cancer associated pain: Plan: on chronic, complex regimen of meds including fentanyl patch, methadone BID, dilaudid PO prn institution of [employer]INGLE [employer]ER dilaudid yesterday with no basal, demands of 0.3mg, and lockout 20min requesting demands 3x more than what is actually being delivered I spoke with Dr Humphrey who will see in consult tomorrow until then - increase demand dose to 0.5mg cont fentanyl with methadone Dr Humphrey tomorrow to possibly change fentanyl patch over to dilaudid basal (5) Anxiety: Plan: schedule ativan 1mg QAM, 1mg qafternoon, 2mg HS (6) Pancreatic cancer: Plan: stage 4 follows with [facility] - Dr Lara, Guera TORIBIO notes from their office reviewed modified FOLFOX regimen recently despite chemo her disease has progressed significantly over the last 6 months - worsening lung mets, liver mets, peritoneal implants/carcinomatosis, increased size of pancreatic mass, etc best option would be palliative care/hospice as she is not responding to chemo and lives with significant pain daily we talked about this option this weekend sister heavily involved in her decision making and care will consult Dr Humphrey from palliative care team (7) Superior mesenteric vein thrombosis: Plan: lovenox 1.5mg/kg daily anti-factor Xa level just shy of therapeutic no changes - especially since we are rapidly approaching comfort care (8) Leukopenia: Plan: 2nd to recent chemo (9) Multiple pulmonary nodules: Plan: noted on CT chest -- 2nd to metastatic pancreatic ca (10) DVT prophylaxis: Plan: lovenox (11) Elevated INR: Plan: likely 2nd to poor liver synthetic function due to infiltration of liver by metastatic disease + lovenox (12) Severe protein-calorie malnutrition: Plan: 14Kg weight loss since 08/2020 due to stage 4 ca Plan: Soha, pt's sister, updated at bedside once again today and also discussed care with sister by phone support given to patient focus on optimal pain control as above Admission and Anticipated Discharge Date Admission Date: February 06, 2021 Subjective patient reports that her pain is "better" but states it is nearly a 7 / 10 on a regular basis despite SHINGLE WEAVER dilaudid, fentanyl patches, and scheduled methadone (latter meds chronic) review of SHINGLE WEAVER -- 14 demand doses delivered; 38 attempts; this was 8 hour period from 0700 to 1500 today pain is RUQ abdomen, and lower abdomen in the top portion of RLQ no BM in several days appetite poor chest wall pain and swelling are improved continues to use a heating pad to that region during my visit her sister Soha was at baseline we discussed the SHINGLE WEAVER and the need for further adjustments given her refractory pain discussed involving Dr Humphrey in her care tomorrow no new complaints patient was scheduled for chemo this week - there was talk this weekend of stopping chemo all-together given her progressive disease in face of chemo during the visit today again counseled patient and sister - CT with carcinomatosis/ascites, expanding liver mets, etc Review of Systems Review of Systems: gen - no fever/chills pulm - no cough, no dyspnea CV - no substernal pain; left chest wall pain improved GI - pain, nausea remain Physical Exam Physical Exam: gen - awake, alert; thin; NAD; tearful mouth - no thrush neck - no JVD heart - RRR, s1 s2, no murmur lungs - CTA b/l abd - liver edge palpable, irregular in shape, tender; BS+; pain also present junction of RUQ/RLQ ext - no edema chest wall - again the nurse chaperoned me during this portion of exam -- port site with surrounding induration and erythema - again IMPROVED today; the erythema extends in several directions but most prominently inferiorly to the Left breast and onto the tail of the breast - this, too, again is also improved; erythema retreating, intensity of erythema is improved (again mostly pink rather than red); warmth improved; no tenderness to palpation today psych - tearful Results & Data Results & Data ([facility]) Vital Signs (Past 12 Hours) Vital Signs Temp Pulse Resp BP Pulse Ox 02/09/21 15:35 37.0 C 93 H 19 111/71 94 02/09/21 07:23 37.1 C 74 17 107/64 94 Laboratory Results Laboratory Results - last 24 hr 02/09/21 02/09/21 02/09/21 11:51 11:51 11:51 WBC 4.18 L RBC 4.50 Hgb 11.0 L Hct 35.5 L MCV 78.9 L MCH 24.4 L MCHC 31.0 L RDW Std Deviation 49.9 H RDW Coeff of Natali 17.7 H Plt Count 129 L MPV 11.4 H Heparin Anti-Xa, LM Wt 0.96 Sodium 136 Potassium 3.9 Chloride 104 Carbon Dioxide 30 Anion Gap 2.0 L BUN 6 L Creatinine 0.52 L Est Cr Clr Drug Dosing 109.0 Est GFR ( Amer) 120.4 Est GFR (Non-Af Amer) 103.9 BUN/Creatinine Ratio 10.9 Glucose 149 H Calcium 8.3 L Total Bilirubin 1.3 H D AST 302 H ALT 248 H Alkaline Phosphatase 674 H Total Protein 5.7 L Albumin 2.4 L Globulin 3.3 Albumin/Globulin Ratio 0.7 L PG Care Time/CCT Total # of Minutes Spent Total Time Spent with Patient: Total time spent is greater than 50% in coordination of care (as documented) at patient's floor/unit and/or counseling patient: Coding Level of Care Code 97491 Subseq Hosp Care Lvl 3 Diagnoses Cellulitis of chest wall L03.313 Extravasation injury of IV catheter site with other complication T82.898A Abnormal LFTs R94.5 Cancer associated pain G89.3 Anxiety F41.9 Pancreatic cancer C25.9 Superior mesenteric vein thrombosis K55.069 Leukopenia D72.819 Leukopenia type: unspecified Multiple pulmonary nodules R91.8 DVT prophylaxis Z29.9 Elevated INR R79.1 Severe protein-calorie malnutrition E43 (1) Leukopenia Leukopenia type: unspecified Qualified Code(s): D72.819 - Decreased white blood cell count, unspecified
[2021-02-09] MEDS: busPIRone 15 MG TAB PO SCH (21:15)
[2021-02-09] MEDS: LORazepam 1 MG TAB PO SCH ×2 (21:31→21:33)
[2021-02-09] MEDS: SODIUM CHLORIDE 0.9% 1000ML 1,000 ML IV SCH (21:34)
[2021-02-10] MEDS: ONDANSETRON 8MG OD TAB PO SCH ×3 (00:07→15:11)
[2021-02-10] MEDS: METHADONE HCL 5 MG TAB PO SCH ×3 (00:07→22:18)
[2021-02-10] MEDS: CHECK fentaNYL PATCH PLACEMENT SCH ×2 (00:08→07:38)
[2021-02-10] MEDS: PROCHLORPERAZINE MALEATE 10 MG TAB PO SCH ×3 (04:25→20:07)
[2021-02-10] MEDS: GABAPENTIN 800 MG TAB PO SCH ×3 (04:25→20:07)
--- NOTE | 2021-02-10 06:56 | Surgery Progress Note ---
Date of Service February 10, 2021 Assessment & Plan (1) Extravasation injury of IV catheter site with other complication: Plan: She is improved from admission Blood cultures are negative No real evidence of infection but could consider outpatient p.o. antibiotics For additional 7 to 10 days No plan for surgical intervention May discharge home when medically stable Admission and Anticipated Discharge Date Admission Date: February 06, 2021 Subjective Patient awake and alert in no distress Says her left chest feels better with less pain Review of Systems Review of Systems: All systems reviewed & are unremarkable except as noted in HPI & below Physical Exam Physical Exam: Left chest shows less induration and swelling Less erythema Constitutional: no acute distress Eyes: + anicteric sclerae Respiratory: no respiratory distress Cardiovascular: Rate/Rhythm: regular rate Chest (Breasts): Additional Comments: Mild left chest erythema and some induration but less than 2 to 3 days prior Gastrointestinal (Abdomen): Inspection/Auscultation: abdomen not distended Musculoskeletal: Head/Neck/Chest: head atraumatic Skin: no rashes, warm and dry See prior description Neurologic: awake Psychiatric: Orientation: alert Results & Data ([facility]) Vital Signs (Past 12 Hours) Vital Signs Temp Pulse Resp BP Pulse Ox 02/09/21 22:39 37.1 C 74 16 110/75 96 PG Care Time/CCT Total # of Minutes Spent Total Time Spent with Patient: Total time spent is greater than 50% in coordination of care (as documented) at patient's floor/unit and/or counseling patient: Coding Level of Care Code 38870 Subseq Hosp Care Lvl 3 Diagnoses Extravasation injury of IV catheter site with other complication T82.898A
[2021-02-10] MEDS: ATORVASTATIN 40 MG TAB PO SCH (07:42)
[2021-02-10] MEDS: busPIRone 5 MG TAB PO SCH (07:43)
[2021-02-10] MEDS: ENOXAPARIN 100 MG/1ML SYR SQ SCH (07:44)
[2021-02-10] MEDS: MULTIVITAMIN TAB PO SCH (07:45)
[2021-02-10] MEDS: PANTOprazole 40 MG TAB PO SCH (07:45)
[2021-02-10] MEDS: LORazepam 1 MG TAB PO SCH ×3 (07:52→22:18)
[2021-02-10] MEDS: buPROPion SR 100 MG TABCR PO SCH (08:07)
[2021-02-10] MEDS ORDERED: VANCOMYCIN TROUGH ONE (09:30)
[2021-02-10] MEDS: VANCOMYCIN HCL 1,250 MG in SODIUM CHLORIDE 0.9% 250 ML IV SCH ×2 (09:40→22:19)
[2021-02-10 10:15] LABS: Albumin Level 2.4 gm/dl (3.4-5.0); BUN Creatinine Ratio 8.1 (10-20); Calcium 8.7 mg/dl (8.5-10.1); Creatinine Clr Calc Pharmacy 91.4 ml/min; Est GFR (African American) 113.6 ml/min; Potassium 3.8 mmol/L (3.5-5.1)
[2021-02-10 10:20] LABS: Albumin Globulin Ratio 0.8 (0.9-2); Bilirubin,Total 1.9 mg/dl (0.2-1); Globulin 3.2 gm/dl (2.5-4.0); Total Protein 5.6 gm/dl (6.4-8.2)
--- NOTE | 2021-02-10 10:38 | Pharmacy Report ---
Pharmacy Vanc AUC Short Note - Date of Service February 10, 2021 - Assessment & Plan Assessment 61 year old F receiving vancomycin for treatment of cellulitis. Pertinent microbiologic data includes: N/A. Day # 6 of antimicrobial therapy. Plan Vancomycin * AUC/BERNA is the preferred PK/PD target for vancomycin * AUC guided dosing is effective and associated with decreased risk of nephrotoxicity compared to traditional trough targets * Trough level of 9.8 mcg/mL is predicted to achieve target AUC/BERNA of 400-600 mg/L.hr and may be associated with a 9 % risk of nephrotoxicity * Continue dose of 1250 mg IV every 12 hours * Trough to be ordered based upon clinical picture Pharmacy will continue to follow and will adjust dose/frequency as necessary. Thank you.
[2021-02-10] MEDS: SODIUM CHLORIDE 0.9% 1000ML 1,000 ML IV SCH (13:54)
--- NOTE | 2021-02-10 15:22 | Palliative Care Consultation ---
Date of Consultation February 10, 2021 Assessment & Plan (1) Abdominal pain: At this point, I think her pain would be best controlled by adding basal rate to DIRECTOR PATIENT. Will discontinue fentanyl patches and lower methadone dose. Her total OME dosing is approximately 500mg. However, methadone and fentanyl will take days to clear. Will add 0.5mg/hr basal rate and monitor as medications clear. Continue 5mg methadone at hs for NMDA receptor activity as she has had significant neuropathic component to her pain. Will monitor and adjust accordingly. (2) Acute chest wall pain: Due to chemotherapy extravasation. Improving (3) Anxiety: On routine lorazepam. Monitor with DIRECTOR PATIENT (4) Palliative care encounter: I had a long, very sonia discussion with Miracle about her illness. She understands that her time is short and asked me how much time I think she has at this point. We discussed that she likely has days to weeks to live. We talked about how she wanted to spend that time. Spending time with family, saying goodbye to family and friends and seeing her new grandniece are very important to her. She tells me that she is not sure where she would want to be at her dying time. While she would like to be home, she is concerned about the effect on her family. We talked about hospice care to support her family and manage hydromorphone infusion if she were to go home. She is agreeable to this. We also revisited her code status. She feels that having CPR would not benefit her at this time and would like code status changed to DNR. I updated this in the orders. I also spoke with her sister, Soha, by phone and reviewed our conversation. She has been very supportive of Miracle during her illness but is concerned about whether the family would be able to adequately manage her symptoms at home. We will monitor over the next few days and continue to discuss plan of care. (5) Pancreatic cancer: History of Present Illness Reason for Consultation: pain management Requesting Physician: Dr. Arriaga Attending Physician: Grady Myers DO History of Present Illness 61 yo lady with metastatic pancreatic cancer known to palliative care. She was diagnosed about one year ago and has been receiving chemotherapy with Dr. Sharpe. Most recently she has been on FOLFOX. She is admitted with pain and inflammation in the left chest and breast after extravasation of chemotherapy infusion. This has improved somewhat but she continues to have moderate to severe RUQ abdominal pain. She describes it as a constant ache. CT done on this admission shows progressive pulmonary and hepatic metastases. Her pancreatic tumor has progressed and she now has peritoneal carcinomatosis as well with ascites. She has been on hydromorphone DIRECTOR PATIENT at 0.3-0.5mg doses every 20 minutes prn. Total dosing in the last 24 hours is 14mg in addition to fentanyl and methadone which she is on at home. Allergies Allergy/AdvReac Type Severity Reaction Status Date / Time latex Allergy Intermediate rash Verified 02/06/21 12:05 sulfamethoxazole Allergy Intermediate itching, Verified 02/06/21 12:05 chest tightness trimethoprim Allergy Intermediate itching, Verified 02/06/21 12:05 chest tightness adhesive Allergy Unknown ITCHY SKIN Verified 02/06/21 12:05 clindamycin AdvReac Severe Diarrhea Verified 02/06/21 12:05 doxycycline AdvReac Intermediate nausea and Verified 02/06/21 12:05 vomiting Home Medications Medication Instructions Recorded Confirmed Type multivitamin (Daily Multi-Vitamin) 1 tab PO QAM 10/26/18 02/06/21 History naloxone 4 mg/actuation nasal 4 mg INTRANASAL Q2M PRN #2 ea 06/24/20 02/06/21 Rx spray (Narcan) ondansetron HCl 8 mg tablet 8 mg PO TID 08/01/20 02/06/21 History prochlorperazine maleate 10 mg 10 mg PO TID 08/01/20 02/06/21 History tablet (Compazine) ergocalciferol (vitamin D2) 1,250 1,250 mcg PO WK 08/18/20 02/06/21 History mcg (50,000 unit) capsule (Vitamin D2) enoxaparin 150 mg/mL subcutaneous See Rx Instructions SUBCUT DAILY 09/09/20 02/06/21 Rx syringe #10 ml fentanyl 50 mcg/hr transdermal 50 mcg TRANSDERMAL Q72H #10 ea 12/17/20 02/06/21 Rx patch bupropion HCl 100 mg tablet 100 mg PO QAM tab 01/07/21 02/06/21 History buspirone 30 mg tablet 30 mg PO HS tab 01/07/21 02/06/21 History lorazepam 1 mg tablet 1 mg PO .COMPLEX PRN #90 tab 01/24/21 02/06/21 Rx cephalexin 500 mg capsule 500 mg PO TID 10 Days #30 cap 02/04/21 02/06/21 Rx lidocaine-prilocaine 2.5 %-2.5 % 1 applic TOPICAL ONCE #30 g 02/04/21 02/06/21 Rx topical cream atorvastatin 40 mg tablet (Lipitor) 40 mg PO QAM 02/06/21 02/06/21 History buspirone 10 mg tablet 10 mg PO QAM 02/06/21 02/06/21 History gabapentin 800 mg tablet 800 mg PO TID 02/06/21 02/06/21 History (Neurontin) hydromorphone 4 mg tablet 6 mg PO Q4H 02/06/21 02/06/21 History (Dilaudid) methadone 5 mg tablet 10 mg PO BID 02/06/21 02/06/21 History pantoprazole 40 mg tablet,delayed 40 mg PO QAM 02/06/21 02/06/21 History release (Protonix) Patient History Medical History Acute pancreatitis Cellulitis of leg, right Constipation Diabetes Headache History of uterine fibroid Hyperlipidemia Hypertension Intractable vomiting Iron deficiency anemia Migraine (09/09/12) Nausea & vomiting Pancreatic cancer Pancreatic duct stricture Pancreatitis, acute Panic attack (09/09/12) PMB (postmenopausal bleeding) Restless legs syndrome Superior mesenteric vein thrombosis Surgical History 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 Umanzor 07/10/2020 S/P surgical removal of pilonidal cyst Family History Sister Endometrial cancer Arthritis Celiac disease Hypertension Diabetes Mother Hypertension Congestive heart failure (CHF) Kidney failure Heart disease Father Parkinson disease Myocardial infarction Graves disease Skin cancer Denies family history of Ovarian cancer Prostate cancer Breast cancer Colorectal cancer Social History Smoking Status: Former smoker Tobacco Type: Cigarettes Age Started Using Tobacco: 21; Age Quit Using Tobacco: 58; packs per day: 1; Years Smoked: 37; Cigarettes Per Day: 2; Number of Years Since Quit: 1; Second Hand Exposure: No; Hx Alcohol Use: No Hx Substance Use: No Preferred Language: [place] Communication Ability: Effective Visual Impairment: No Limitations 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 Ability: Normal 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 Required: No Beliefs That Will Affect Care: None marital status: Single Current Living Situation: Family Current Living Situation Comment: with sister current occupational status: disabled How many Children do You have: 0 Feels Safe at Home: Yes Childhood Exposure to Second-Hand Smoke: No Dental Care, Regularly: No Physical Activity Frequency: Does not Exercise Seatbelt Use: always Sunscreen Use: Yes Assistive Devices: None Review of Systems Review of Systems: Independence Symptom Assessment Score Pain 2/3 Dypsnea 0/3 Nausea 0/3 Anxiety 1/3 Drowsiness 0/3 Palliative Performance Score 50% Physical Exam Constitutional: ill appearing Respiratory: respirations unlabored Cardiovascular: Extremities: no edema Gastrointestinal (Abdomen): mild distension, RUQ tenderness to palpation Musculoskeletal: Extremities: + muscle atrophy Skin: erythema and induration around mediport site with edema left breast Neurologic: awake; not confused Results & Data ([facility]) Vital Signs (Past 12 Hours) Vital Signs Temp Pulse Resp BP Pulse Ox 02/10/21 07:01 98.4 F 75 16 101/67 93 PG Care Time/CCT Total # of Minutes Spent Total Time Spent: 90 Total Time Spent with Patient: Total time spent is greater than 50% in coordination of care (as documented) at patient's floor/unit and/or counseling patient: symptom management, code status, goals of care, hospice, patient and family education and support Coding Level of Care Code 76717 Initial Inpt Care Lvl 3 Diagnoses Abdominal pain R10.9 Acute chest wall pain R07.89 Anxiety F41.9 Palliative care encounter Z51.5 Pancreatic cancer C25.9
[2021-02-10] MEDS: DOCUSATE SODIUM/SENNA 50/8.6MG TAB PO SCH (18:33)
[2021-02-10] MEDS: POLYETHYLENE (MIRALAX) 17 GM PACK PO PRN (18:33)
--- NOTE | 2021-02-10 18:42 | Hospitalist Progress Note ---
Date of Service February 10, 2021 Assessment & Plan (1) Cellulitis of chest wall: Plan: - IMPROVING. - Left upper chest near her port w/ extension to L breast. - Had extravasation of her chemo about 10 days ago. - Cont vancomycin at this time - could consider oral conversion with 7-10 day coverage -- Stopped rocephin due to rapidly worsening LFTs. - BCx - remain NGTD (2) Extravasation injury of IV catheter site with other complication: Plan: - see #1 above - appreciate gen surg consult and recs (3) Abnormal LFTs: Plan: - ACUTE - CT - worsening pancreatic head mass - possible compression of pancreatitic duct? biliary ductal dilatation, carcinomatosis, and worsening liver mets - LFTs downtrending today but t. bili continues to rise - concer for CBD obstruction which places at risk for cholangitis - Will repeat LFTs in AM - Discussed with patient and family - she is not sure she would want to go through an ERCP at this time but would want basic treatment (infections, etc.) -- Sister states patient has had multiple bouts of post-ERCP pancreatitis - Given the progression of her disease, pain, and prognosis - ERCP risk may outweight benefits - Palliative care is following - patient is not DNR/DNI - however still wants treatment for basic things on my discussion with her (4) Cancer associated pain: Plan: - On chronic, complex regimen including Fentanyl patch, Methadone, Dilaudid - Dilaudid MONTESSORI PARAPROFESSIONAL initiated -- Appreciate Dr. Humphrey's assistance - basal rate added; D/C Fentanyl and lower Methadone (5) Anxiety: Plan: - NEELA ativan 1mg QAM, 1mg q afternoon, 2mg HS - will need to monitor given MONTESS[employer]I [employer]AP[employer]OFESSIONAL (6) Pancreatic cancer: Plan: - Stage 4; Follows with [facility] - Dr. Lara and Gu[facility] TORIBIO - Modified FOLFOX regimen recently - Despite chemo her disease has progressed significantly - worsening lung mets, liver mets, peritoneal implants/carcinomatosis, increased size of pancreatic mass - Bridging the approach of palliative/hospice services - appreciate Dr. Humphrey's input and assistance (7) Superior mesenteric vein thrombosis: Plan: - lovenox 1.5mg/kg daily - anti-factor Xa level just shy of therapeutic - no changes - especially since we are rapidly approaching comfort care (8) Leukopenia: Plan: - 2nd to recent chemo (9) Multiple pulmonary nodules: Plan: - noted on CT chest -- 2nd to metastatic pancreatic ca (10) Elevated INR: Plan: - likely 2nd to poor liver synthetic function due to infiltration of liver by metastatic disease + lovenox (11) Severe protein-calorie malnutrition: Plan: - 14Kg weight loss since 08/2020 due to stage 4 ca (12) DVT prophylaxis: Plan: lovenox Plan: - Discussed with Soha at bedside - Continue to control pain - Discussions of palliative care/hospice - not officially on comfort only Admission and Anticipated Discharge Date Admission Date: February 06, 2021 Subjective Reports doing okay today. Pain is better controlled with some sedation this afternoon but was easily awoken. Pain in the chest is almost resolved, just some irritation to palpation near the axilla. Updated sister at bedside. Review of Systems Review of Systems: REVIEW OF SYSTEMS General/Constitutional: Denies fever/chills Cardiovascular: + chest pain related to cellulitis site; Denies palpitations, edema Respiratory: Denies cough, SOB, wheezing GI: + abdominal pain (better controlled), + constipation; Denies nausea, vomiting : Denies dysuria Musculoskeletal: Denies joint/muscle aches Neurologic: Denies dizziness/lightheadedness Physical Exam Physical Exam: PHYSICAL EXAM General Appearance: WDWN in NAD who is A&O x 3 HEENT: Head is normocephalic/atraumatic; Hearing grossly intact; Mucous membranes moist Neck: Supple; Trachea midline; Neg JVD Heart: RRR with no M/G/R Lungs: CTA in all lung hsu bilaterally; Respirations unlabored; Neg accessory muscle use Abdomen: tender; Positive BS x 4 quadrants Extremities: Neg cyanosis or edema Neurological: Speech clear; Gross motor/sensory function intact; Neg focal neurologic deficits Psychiatric: Appropriate mood/affect Skin: Port site in L upper chest with induration and erythema mostly near axilla - mostly pink in color, not warm to touch; no tenderness to palpation Results & Data Results & Data ([facility]) Vital Signs (Past 12 Hours) Vital Signs Temp Pulse Resp BP Pulse Ox 02/10/21 15:54 37.1 C 78 18 121/76 94 02/10/21 07:01 36.9 C 75 16 101/67 93 PG Care Time/CCT Total # of Minutes Spent Total Time Spent with Patient: Total time spent is greater than 50% in coordination of care (as documented) at patient's floor/unit and/or counseling patient: Coding Level of Care Code 90435 Subseq Hosp Care Lvl 3 Diagnoses Cellulitis of chest wall L03.313 Extravasation injury of IV catheter site with other complication T82.898A Abnormal LFTs R94.5 Cancer associated pain G89.3 Anxiety F41.9 Pancreatic cancer C25.9 Superior mesenteric vein thrombosis K55.069 Leukopenia D72.819 Leukopenia type: unspecified Multiple pulmonary nodules R91.8 DVT prophylaxis Z29.9 Elevated INR R79.1 Severe protein-calorie malnutrition E43 (1) Leukopenia Leukopenia type: unspecified Qualified Code(s): D72.819 - Decreased white blood cell count, unspecified
[2021-02-10] MEDS: busPIRone 15 MG TAB PO SCH (22:18)
[2021-02-10] MEDS: dexAMETHasone 4 MG in SYRINGE 0 ML IV SCH (22:19)
[2021-02-11] MEDS: ONDANSETRON 8MG OD TAB PO SCH ×4 (00:15→23:02)
[2021-02-11] MEDS: HYDROmorphone PCA 30 MG/30 ML IV PRN (02:36)
[2021-02-11] MEDS: GABAPENTIN 800 MG TAB PO SCH ×3 (04:14→20:21)
[2021-02-11] MEDS: PROCHLORPERAZINE MALEATE 10 MG TAB PO SCH ×3 (04:14→20:21)
--- NOTE | 2021-02-11 08:26 | Surgery Progress Note ---
Date of Service February 11, 2021 Assessment & Plan (1) Extravasation injury of IV catheter site with other complication: Plan: Patient with expected erythema and induration from chemical inflammation No evidence of skin necrosis or significant infection-these may require surgery but this would be extensive And very morbid for the patient and her current situation Continue to follow Admission and Anticipated Discharge Date Admission Date: February 06, 2021 Subjective Patient awake and alert in no distress No acute changes in patient status although she is on additional IV pain control Seems to be very comfortable at present time Review of Systems Review of Systems: All systems reviewed & are unremarkable except as noted in HPI & below Physical Exam Physical Exam: Left chest with lateral erythema and induration No skin necrosis Constitutional: no acute distress Eyes: + anicteric sclerae Respiratory: no respiratory distress Cardiovascular: Rate/Rhythm: regular rate Chest (Breasts): Additional Comments: Mild left chest erythema and some induration but less than 2 to 3 days prior Gastrointestinal (Abdomen): Inspection/Auscultation: abdomen not distended Musculoskeletal: Head/Neck/Chest: head atraumatic Skin: no rashes, warm and dry See prior description Neurologic: awake Psychiatric: Orientation: alert Results & Data ([facility]) Vital Signs (Past 12 Hours) Vital Signs Temp Pulse Resp BP Pulse Ox 02/11/21 07:58 37.3 C 69 16 107/69 95 02/11/21 05:50 36.9 C 02/10/21 21:55 37.7 C H 82 18 112/70 96 PG Care Time/CCT Total # of Minutes Spent Total Time Spent with Patient: Total time spent is greater than 50% in coordination of care (as documented) at patient's floor/unit and/or counseling patient: Coding Level of Care Code 64805 Inpt Consult Level 3 Diagnoses Extravasation injury of IV catheter site with other complication T82.898A
--- NOTE | 2021-02-11 09:32 | Palliative Care Progress Note ---
Date of Service February 11, 2021 Assessment & Plan (1) Abdominal pain: Plan: IV team placed new IV line. Infusion now running. One time bolus dose of hydromorphone 1mg given to start. She tells me that pain had been well controlled and had only 4 attempts with 2 doses during four hour period on nightman. Will continue to monitor now that IV is functioning. (2) Anxiety: Plan: Continue routine lorazepam. She is also on bupropion and buspirone (3) Palliative care encounter: Plan: Miracle tells me that she is grateful that she was able to travel to [place] this fall which was on her bucket list. She is hoping to see her grandniece in the next week. She asked again about prognosis. She feels better with increased pain management and wonders if she is really dying. We discussed underlying problems related to cancer and the likelihood that she will feel progressively weaker in the next days to weeks. She does want to continue treatment for treatable problems while in the hospital and would be agreeable to ERCP if indicated. (4) Pancreatic cancer: Admission and Anticipated Discharge Date Admission Date: February 06, 2021 Subjective [place] pain was manageable after basal rate added yesterday. Unfortunately, IV site leaking overnight. Now tearful and complains of severe abdominal pain. Review of Systems Review of Systems: [place] Symptom Assessment Scale Pain 3/3 Dyspnea 1/3 Nausea 0/3 Anxiety 2/3 Fatigue 2/3 Drowsiness 0/3 Palliative Performance Score 50% Physical Exam Constitutional: + ill appearing; + uncomfortable Respiratory: normal respiratory effort; no labored breathing Cardiovascular: Extremities: no edema Gastrointestinal (Abdomen): RUQ tenderness Musculoskeletal: Extremities: + muscle atrophy Skin: erythema and induration left breast and axilla Neurologic: awake; not confused Results & Data ([facility]) Vital Signs (Past 12 Hours) Vital Signs Temp Pulse Resp BP Pulse Ox 02/11/21 07:58 99.1 F 69 16 107/69 95 02/11/21 05:50 98.4 F 02/10/21 21:55 99.9 F H 82 18 112/70 96 PG Care Time/CCT Total # of Minutes Spent Total Time Spent: 50 Total Time Spent with Patient: Total time spent is greater than 50% in coordination of care (as documented) at patient's floor/unit and/or counseling patient:symptom management, goals of care, patient education and support Coding Level of Care Code 18934 Subseq Hosp Care Lvl 3 Diagnoses Abdominal pain R10.9 Anxiety F41.9 Palliative care encounter Z51.5 Pancreatic cancer C25.9
[2021-02-11] MEDS ORDERED: HYDROmorphone INJ 1 MG/ML SYRINGE IV STA (09:44)
[2021-02-11 10:03] LABS: Albumin Level 2.5 gm/dl (3.4-5.0); BUN Creatinine Ratio 8.1 (10-20); Calcium 8.7 mg/dl (8.5-10.1); Creatinine Clr Calc Pharmacy 84.6 ml/min; Est GFR (African American) 110.7 ml/min; Est GFR (Non-African American) 95.5 ml/min; Potassium 4.1 mmol/L (3.5-5.1)
[2021-02-11] MEDS: ATORVASTATIN 40 MG TAB PO SCH (10:04)
[2021-02-11] MEDS: buPROPion SR 100 MG TABCR PO SCH (10:05)
[2021-02-11] MEDS: busPIRone 5 MG TAB PO SCH (10:05)
[2021-02-11 10:06] LABS: Albumin Globulin Ratio 0.7 (0.9-2); Bilirubin,Total 2.1 mg/dl (0.2-1); Globulin 3.4 gm/dl (2.5-4.0); Total Protein 5.9 gm/dl (6.4-8.2)
[2021-02-11] MEDS: DOCUSATE SODIUM/SENNA 50/8.6MG TAB PO SCH (10:06)
[2021-02-11] MEDS: MULTIVITAMIN TAB PO SCH (10:06)
[2021-02-11] MEDS: PANTOprazole 40 MG TAB PO SCH (10:07)
[2021-02-11] MEDS: LORazepam 1 MG TAB PO SCH ×3 (10:16→20:20)
[2021-02-11] MEDS: ENOXAPARIN 100 MG/1ML SYR SQ SCH (10:17)
[2021-02-11] MEDS: dexAMETHasone 4 MG in SYRINGE 0 ML IV SCH ×2 (10:20→20:21)
[2021-02-11] MEDS: VANCOMYCIN HCL 1,250 MG in SODIUM CHLORIDE 0.9% 250 ML IV SCH ×2 (12:03→23:02)
--- NOTE | 2021-02-11 18:22 | Hospitalist Progress Note ---
Date of Service February 11, 2021 Assessment & Plan (1) Cellulitis of chest wall: Plan: - IMPROVING. - Left upper chest near her port w/ extension to L breast. - Had extravasation of her chemo around 01/29 - Cont vancomycin at this time and will cover until tomorrow to give 7 day course and will stop Abx -- Stopped rocephin due to rapidly worsening LFTs. - BCx - remain NGTD (2) Extravasation injury of IV catheter site with other complication: Plan: - see #1 above - appreciate gen surg consult and recs -- expected erythema/induration from chemical inflammation - no necrosis -- sometime do require surgery but would be extensive and may be more harmful than good -- will need close monitoring (3) Abnormal LFTs: Plan: - ACUTE - CT - worsening pancreatic head mass - possible compression of pancreatitic duct? biliary ductal dilatation, carcinomatosis, and worsening liver mets - LFTs downtrending today but t. 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 - Given the progression of her disease, pain, and prognosis - ERCP risk may outweight benefits -- Will discuss with GI to see at what point would we need to consider ERCP or if it is even safe to do so we can supply all the information possible to her to make an informed decision on what she would want - Palliative care is following - patient is not DNR/DNI - however still wants treatment for basic things but no "heroics" (4) Cancer associated pain: Plan: - IMPROVING - On chronic, complex regimen including Fentanyl patch, Methadone, Dilaudid - Dilaudid WINDSHIELD INSTALLER initiated -- Appreciate Dr. Humphrey's assistance - basal rate added; D/C Fentanyl and lower Methadone (5) Anxiety: Plan: - NEELA ativan 1mg QAM, 1mg q afternoon, 2mg HS - will need to monitor given WINDSHIELD INSTALLER (6) Pancreatic cancer: Plan: - Stage 4; Follows with [facility] - Dr. Lara and Guera TORIBIO - Modified FOLFOX regimen recently - Despite chemo her disease has progressed significantly - worsening lung mets, liver mets, peritoneal implants/carcinomatosis, increased size of pancreatic mass - Bridging the approach of palliative/hospice services - appreciate Dr. Humphrey's input and assistance - On discussion today (02/11) patient feels she may not have an option to continue chemotherapy (7) Superior mesenteric vein thrombosis: Plan: - lovenox 1.5mg/kg daily - anti-factor Xa level just shy of therapeutic - no changes - especially since we are rapidly approaching comfort care (8) Leukopenia: Plan: - 2nd to recent chemo (9) Multiple pulmonary nodules: Plan: - noted on CT chest -- 2nd to metastatic pancreatic ca (10) Elevated INR: Plan: - likely 2nd to poor liver synthetic function due to infiltration of liver by metastatic disease + lovenox (11) Severe protein-calorie malnutrition: Plan: - 14Kg weight loss since 08/2020 due to stage 4 ca (12) DVT prophylaxis: Plan: lovenox Plan: - Discussed with Soha at bedside - Continue to control pain - Discussions of palliative care/hospice - will need to discuss options for home with services vs facility vs other Admission and Anticipated Discharge Date Admission Date: February 06, 2021 Subjective Reports better pain control today and is less sedated. Did have worse pain this AM as IV site was leaking. Bilirubin continues to be elevated at 2 but other LFTs trending down. Also added a bowel regimen as she has not moved her bowels in about 4 days. Reports the chest feels a lot better. Review of Systems Review of Systems: REVIEW OF SYSTEMS General/Constitutional: Denies fever/chills Cardiovascular: + chest pain related to cellulitis site (nearly resolved); Denies palpitations, edema Respiratory: Denies cough, SOB, wheezing GI: + abdominal pain (better controlled), + constipation; Denies nausea, vomiting : Denies dysuria Musculoskeletal: Denies joint/muscle aches Neurologic: Denies dizziness/lightheadedness Physical Exam Physical Exam: PHYSICAL EXAM General Appearance: 61 y/o female in NAD who is A&O x 3 HEENT: Head is normocephalic/atraumatic; Hearing grossly intact; Mucous membranes moist Neck: Supple; Trachea midline; Neg JVD Heart: RRR with no M/G/R Lungs: CTA in all lung hsu bilaterally; Respirations unlabored; Neg accessory muscle use Abdomen: tender; Positive BS x 4 quadrants Extremities: Neg cyanosis or edema Neurological: Speech clear; Gross motor/sensory function intact; Neg focal neurologic deficits Psychiatric: Appropriate mood/affect Skin: Port site in L upper chest with induration and erythema mostly near axilla - mostly pink in color, not warm to touch; no tenderness to palpation Results & Data Results & Data ([facility]) Vital Signs (Past 12 Hours) Vital Signs Temp Pulse Resp BP Pulse Ox 02/11/21 15:41 37.1 C 76 16 103/69 92 02/11/21 07:58 37.3 C 69 16 107/69 95 PG Care Time/CCT Total # of Minutes Spent Total Time Spent with Patient: Total time spent is greater than 50% in coordination of care (as documented) at patient's floor/unit and/or counseling patient: Coding Level of Care Code 30133 Subseq Hosp Care Lvl 2 Diagnoses Cellulitis of chest wall L03.313 Extravasation injury of IV catheter site with other complication T82.898A Abnormal LFTs R94.5 Cancer associated pain G89.3 Anxiety F41.9 Pancreatic cancer C25.9 Superior mesenteric vein thrombosis K55.069 Leukopenia D72.819 Leukopenia type: unspecified Multiple pulmonary nodules R91.8 Elevated INR R79.1 Severe protein-calorie malnutrition E43 DVT prophylaxis Z29.9 (1) Leukopenia Leukopenia type: unspecified Qualified Code(s): D72.819 - Decreased white blood cell count, unspecified
[2021-02-11] MEDS: METHADONE HCL 5 MG TAB PO SCH (20:20)
[2021-02-11] MEDS: POLYETHYLENE (MIRALAX) 17 GM PACK PO PRN (20:20)
[2021-02-11] MEDS: busPIRone 15 MG TAB PO SCH (20:21)
[2021-02-12] MEDS: PROCHLORPERAZINE MALEATE 10 MG TAB PO SCH ×3 (03:38→20:37)
[2021-02-12] MEDS: GABAPENTIN 800 MG TAB PO SCH ×3 (03:38→20:37)
[2021-02-12] MEDS: HYDROmorphone PCA 30 MG/30 ML IV PRN ×2 (06:20→10:54)
[2021-02-12] MEDS: busPIRone 5 MG TAB PO SCH (08:44)
[2021-02-12] MEDS: buPROPion SR 100 MG TABCR PO SCH (08:44)
[2021-02-12] MEDS: ATORVASTATIN 40 MG TAB PO SCH (08:44)
[2021-02-12] MEDS: LORazepam 1 MG TAB PO SCH ×3 (08:44→20:38)
[2021-02-12] MEDS: MULTIVITAMIN TAB PO SCH (08:45)
[2021-02-12] MEDS: DOCUSATE SODIUM/SENNA 50/8.6MG TAB PO SCH (08:45)
[2021-02-12] MEDS: PANTOprazole 40 MG TAB PO SCH (08:45)
[2021-02-12] MEDS: ONDANSETRON 8MG OD TAB PO SCH ×3 (08:45→23:03)
[2021-02-12] MEDS: ENOXAPARIN 100 MG/1ML SYR SQ SCH (08:45)
[2021-02-12] MEDS: dexAMETHasone 4 MG in SYRINGE 0 ML IV SCH ×2 (08:45→20:37)
--- NOTE | 2021-02-12 10:11 | Palliative Care Progress Note ---
Date of Service February 12, 2021 Assessment & Plan (1) Abdominal pain: Plan: Will increase basal rate on hydromorphone infusion for better baseline pain relief. Given mild lethargy, will decrease methadone to 2.5mg at hs. She has less description of neuropathic pain at this time. (2) Anxiety: Plan: Continue routine lorazepam, buspirone and bupropion. (3) Palliative care encounter: Plan: I talked with Miracle at bedside and with her sister, Soha, on speaker phone. Miracle is tearful and says that she is tired of being in the hospital. She would like to go home with hospice care but family has some reservations about being able to manage her symptoms at home. We reviewed hospice support and management of hydromorphone infusion which can be adjusted as needed to manage her pain. Reviewed 09/11 call availability of hospice nurses for problems as well as regular f/u to manage pump and ensure that it is working properly. Miracle wants to go home and family wants to support her wish. Will begin planning for discharge home with hospice on Wednesday. Dr. Myers and carl rodriguezement aware. (4) Pancreatic cancer: (5) Extravasation injury of IV catheter site with other complication: Admission and Anticipated Discharge Date Admission Date: February 06, 2021 Subjective Sleeping but easily arousable. Reports that pain is relieved when she pushes the button but she has increased pain if she sleeps and doesn't push the button. She is using 3-4 bolus doses every four hours in addition to basal rate. She is more drowsy today and having a little more trouble with cognition. Review of Systems Review of Systems: [place] Symptom Assessment Scale Pain 2/3 Dyspnea 0/3 Anxiety 2/3 Fatigue 2/3 Nausea 0/3 Drowsiness 1/3 Palliative Performance score 50% Physical Exam Constitutional: + ill appearing Respiratory: normal respiratory effort; no labored breathing Cardiovascular: Extremities: no edema Gastrointestinal (Abdomen): RUQ tenderness Musculoskeletal: Extremities: + muscle atrophy Neurologic: Speech / Cognition: + abnormal cognition (delayed, mild confusion) Results & Data ([facility]) Vital Signs (Past 12 Hours) Vital Signs Temp Pulse Resp BP Pulse Ox 02/12/21 08:32 97.9 F 73 19 117/78 98 02/11/21 23:00 98.2 F 65 14 102/65 92 PG Care Time/CCT Total # of Minutes Spent Total Time Spent: 45 Total Time Spent with Patient: Total time spent is greater than 50% in coordination of care (as documented) at patient's floor/unit and/or counseling patient: symptom management, plan of care, hospice, coordination of care Coding Level of Care Code 38235 Subseq Hosp Care Lvl 3 Diagnoses Abdominal pain R10.9 Anxiety F41.9 Palliative care encounter Z51.5 Pancreatic cancer C25.9 Extravasation injury of IV catheter site with other complication T82.898A
[2021-02-12] MEDS: VANCOMYCIN HCL 1,250 MG in SODIUM CHLORIDE 0.9% 250 ML IV SCH ×2 (10:55→22:58)
[2021-02-12] MEDS: SODIUM CHLORIDE 0.9% 1000ML 1,000 ML IV SCH ×2 (11:00→12:21)
--- NOTE | 2021-02-12 11:33 | Surgery Progress Note ---
Date of Service February 12, 2021 Assessment & Plan (1) Extravasation injury of IV catheter site with other complication: Plan: No significant change in the left chest wall No evidence of skin necrosis We will try to avoid surgery unless absolutely necessary with obvious skin necrosis or infection Admission and Anticipated Discharge Date Admission Date: February 06, 2021 Subjective Patient awake and alert in no distress No acute changes in patient status although she is on additional IV pain control Seems to be very comfortable at present time Review of Systems Review of Systems: All systems reviewed & are unremarkable except as noted in HPI & below Physical Exam Physical Exam: Left chest with lateral erythema and induration No skin necrosis Constitutional: no acute distress Eyes: + anicteric sclerae Respiratory: no respiratory distress Cardiovascular: Rate/Rhythm: regular rate Chest (Breasts): Additional Comments: Mild left chest erythema and some induration but less than 2 to 3 days prior Gastrointestinal (Abdomen): Inspection/Auscultation: abdomen not distended Musculoskeletal: Head/Neck/Chest: head atraumatic Skin: no rashes, warm and dry See prior description Neurologic: awake Psychiatric: Orientation: alert Results & Data ([facility]) Vital Signs (Past 12 Hours) Vital Signs Temp Pulse Resp BP Pulse Ox 02/12/21 08:32 36.6 C 73 19 117/78 98 PG Care Time/CCT Total # of Minutes Spent Total Time Spent with Patient: Total time spent is greater than 50% in coordination of care (as documented) at patient's floor/unit and/or counseling patient: Coding Level of Care Code 84839 Inpt Consult Level 3 Diagnoses Extravasation injury of IV catheter site with other complication T82.898A
[2021-02-12 14:32] LABS: Albumin Level 2.9 gm/dl (3.4-5.0); BUN Creatinine Ratio 10.3 (10-20); Calcium 8.6 mg/dl (8.5-10.1); Creatinine Clr Calc Pharmacy 94.5 ml/min; Est GFR (African American) 114.8 ml/min; Est GFR (Non-African American) 99.1 ml/min
[2021-02-12 14:34] LABS: Albumin Globulin Ratio 0.8 (0.9-2); Bilirubin,Total 2.3 mg/dl (0.2-1); Globulin 3.5 gm/dl (2.5-4.0); Total Protein 6.4 gm/dl (6.4-8.2)
--- NOTE | 2021-02-12 19:48 | Hospitalist Progress Note ---
Date of Service February 12, 2021 Assessment & Plan (1) Cellulitis of chest wall: Plan: - IMPROVING. - Left upper chest near her port w/ extension to L breast. - Had extravasation of her chemo around 01/29 - Completed course of Vancomycin -- Stopped rocephin due to rapidly worsening LFTs. - BCx - remain NGTD (2) Extravasation injury of IV catheter site with other complication: Plan: - see #1 above - appreciate gen surg consult and recs -- expected erythema/induration from chemical inflammation - no necrosis -- sometime do require surgery but would be extensive and may be more harm than good -- will need close monitoring (3) Abnormal LFTs: Plan: - ACUTE - CT - worsening pancreatic head mass - possible compression of pancreatitic duct? biliary ductal dilatation, carcinomatosis, and worsening liver mets - LFTs continue to downtrend today but t. bili continues to rise - concern for CBD obstruction which places at risk for cholangitis - Will monitor LFTs - Given the progression of her disease, pain, and prognosis - ERCP risk may outweight benefits -- Will discuss with GI to see at what point would we need to consider ERCP or if it is even safe to do so we can supply all the information possible to her to make an informed decision on what she would want - Palliative care is following - patient is now DNR/DNI - however still wants treatment for basic things but no "heroics" (4) Cancer associated pain: Plan: - IMPROVING - On chronic, complex regimen including Fentanyl patch, Methadone, Dilaudid - Dilaudid FLAT BED KNITTER initiated -- Appreciate Dr. Humphrey's assistance - basal rate added; D/C Fentanyl and lower Methadone (5) Anxiety: Plan: - NEELA ativan 1mg QAM, 1mg q afternoon, 2mg HS - will need to monitor given FLAT BED KNITTER (6) Pancreatic cancer: Plan: - Stage 4; Follows with [facility] - Dr. Lara and Guera TORIBIO - Modified FOLFOX regimen recently - Despite chemo her disease has progressed significantly - worsening lung mets, liver mets, peritoneal implants/carcinomatosis, increased size of pancreatic mass - Bridging the approach of palliative/hospice services - appreciate Dr. Humphrey's input and assistance - On discussion (02/11) patient feels she may not have an option to continue chemotherapy - patient does express interest in hospice services to continue the FLAT BED KNITTER pump -- Patient's goal is to be at home but also need to consider the needs of family as well and if they can accommodate physically/emotionally; (7) Superior mesenteric vein thrombosis: Plan: - lovenox 1.5mg/kg daily - anti-factor Xa level just shy of therapeutic - no changes - especially since we are rapidly approaching comfort care (8) Leukopenia: Plan: - 2nd to recent chemo (9) Multiple pulmonary nodules: Plan: - noted on CT chest -- 2nd to metastatic pancreatic ca (10) Elevated INR: Plan: - likely 2nd to poor liver synthetic function due to infiltration of liver by metastatic disease + lovenox (11) Severe protein-calorie malnutrition: Plan: - 14Kg weight loss since 08/2020 due to stage 4 ca (12) DVT prophylaxis: Plan: lovenox Plan: - Continue to control pain - Discussions of palliative care/hospice - will need to discuss options for home with services vs facility vs other Admission and Anticipated Discharge Date Admission Date: February 06, 2021 Subjective Reports her pain was doing better this afternoon. She was walking in the room upon entering. She did have her FLAT BED KNITTER increased earlier today by Dr. Humphrey. She reports her biggest goal is to be able to go home and see family. States her chest wall is not bothersome today unless pushed on. No reports of nausea. No bowel movement yet with ordered laxatives/stool softeners. Verbalizes no new complaints today. Review of Systems Review of Systems: REVIEW OF SYSTEMS General/Constitutional: Denies fever/chills Cardiovascular: + chest pain related to cellulitis site (nearly resolved - only painful with palpation); Denies palpitations, edema Respiratory: Denies cough, SOB, wheezing GI: + abdominal pain (better controlled with FLAT BED KNITTER and not present during my exam), + constipation; Denies nausea, vomiting : Denies dysuria Musculoskeletal: Denies joint/muscle aches Neurologic: Denies dizziness/lightheadedness Physical Exam Physical Exam: PHYSICAL EXAM General Appearance: 61 y/o female in NAD who is A&O x 3 HEENT: Head is normocephalic/atraumatic; Hearing grossly intact; Mucous membranes moist Neck: Supple; Trachea midline; Neg JVD Heart: RRR with no M/G/R Lungs: CTA in all lung hsu bilaterally; Respirations unlabored; Neg accessory muscle use Abdomen: tender; Positive BS x 4 quadrants Extremities: Neg cyanosis or edema Neurological: Speech clear; Gross motor/sensory function intact; Neg focal neurologic deficits Psychiatric: Appropriate mood/affect Skin: Port site in L upper chest with induration and erythema mostly near axilla - mostly pink in color, not warm to touch; mild tenderness to palpation; no signs of necrosis Results & Data Results & Data ([facility]) Vital Signs (Past 12 Hours) Vital Signs Temp Pulse Resp BP Pulse Ox 02/12/21 19:08 36.4 C L 64 15 102/65 96 02/12/21 16:23 37.2 C 83 17 100/67 95 02/12/21 12:07 37.0 C 70 17 104/67 93 02/12/21 08:32 36.6 C 73 19 117/78 98 PG Care Time/CCT Total # of Minutes Spent Total Time Spent with Patient: Total time spent is greater than 50% in coordination of care (as documented) at patient's floor/unit and/or counseling patient: Coding Level of Care Code 91869 Subseq Hosp Care Lvl 2 Diagnoses Cellulitis of chest wall L03.313 Extravasation injury of IV catheter site with other complication T82.898A Abnormal LFTs R94.5 Cancer associated pain G89.3 Anxiety F41.9 Pancreatic cancer C25.9 Superior mesenteric vein thrombosis K55.069 Leukopenia D72.819 Leukopenia type: unspecified Multiple pulmonary nodules R91.8 Elevated INR R79.1 Severe protein-calorie malnutrition E43 DVT prophylaxis Z29.9 (1) Leukopenia Leukopenia type: unspecified Qualified Code(s): D72.819 - Decreased white blood cell count, unspecified
[2021-02-12] MEDS: busPIRone 15 MG TAB PO SCH (20:37)
[2021-02-12] MEDS: METHADONE HCL 5 MG TAB PO SCH (20:37)
[2021-02-12] MEDS: POLYETHYLENE (MIRALAX) 17 GM PACK PO PRN (20:53)
[2021-02-13] MEDS: HYDROmorphone PCA 30 MG/30 ML IV PRN ×3 (01:23→20:39)
[2021-02-13] MEDS: PROCHLORPERAZINE MALEATE 10 MG TAB PO SCH ×3 (04:57→20:26)
[2021-02-13] MEDS: GABAPENTIN 800 MG TAB PO SCH ×3 (04:57→20:26)
[2021-02-13] MEDS: DOCUSATE SODIUM/SENNA 50/8.6MG TAB PO SCH (08:51)
[2021-02-13] MEDS: busPIRone 5 MG TAB PO SCH (08:51)
[2021-02-13] MEDS: ONDANSETRON 8MG OD TAB PO SCH ×3 (08:51→22:58)
[2021-02-13] MEDS: dexAMETHasone 4 MG in SYRINGE 0 ML IV SCH ×2 (08:51→20:27)
[2021-02-13] MEDS: buPROPion SR 100 MG TABCR PO SCH (08:51)
[2021-02-13] MEDS: PANTOprazole 40 MG TAB PO SCH (08:51)
[2021-02-13] MEDS: ATORVASTATIN 40 MG TAB PO SCH (08:51)
[2021-02-13] MEDS: MULTIVITAMIN TAB PO SCH (08:51)
[2021-02-13] MEDS: LORazepam 1 MG TAB PO SCH ×3 (08:51→20:26)
[2021-02-13] MEDS: ENOXAPARIN 100 MG/1ML SYR SQ SCH (08:52)
--- NOTE | 2021-02-13 12:03 | Palliative Care Progress Note ---
Date of Service February 13, 2021 Assessment & Plan (1) Abdominal pain: Plan: with pancreatic cancer and hepatic mets. 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 With difficult pain control, would continue methadone at low dose. Will increase basal dose to 1mg/hr. Continue current bolus dosing. (2) Anxiety: Plan: Contributing to pain. Continue routine lorazepam, bupropion and buspirone. (3) Palliative care encounter: Plan: I met with Miracle's sisters along with case management and benefits representative from [facility]. Unfortunately, [facility] does not accept Miracle's insurance. Case management is working on alternatives and sisters are aware. We reviewed coverage of medical equipment and medications with hospice, 09/11 nursing support to monitor infusion pump and logistics of rotating to hospice pump when she is ready for discharge. At this time, it is likely that we will not have hospice set up for tomorrow, due to insurance coverage. Plan will be home with hospice on Wednesday if arrangements are in place. Addressed concerns from Miracle's sisters regarding SQ administration, pump maintenance and support. (4) Pancreatic cancer: Admission and Anticipated Discharge Date Admission Date: February 06, 2021 Subjective Seems sedated. Cognition slightly delayed at times. She reports having a rough night last night with pain. She had 34 attempts overnight with total of 5mg hydromorphone in bolus dosing, in addition to basal rate which would be 6.4mg overnight. Review of Systems Review of Systems: [place] Symptom Assessment Scale Pain 2-3/3 Dyspnea 0/3 Fatigue 2/3 Nausea 0/3 Drowsiness 1/3 Palliative Performance Score 50% Physical Exam Constitutional: + ill appearing; no acute distress Respiratory: normal respiratory effort; no labored breathing Cardiovascular: Extremities: no edema Gastrointestinal (Abdomen): RUQ tenderness Musculoskeletal: Extremities: + muscle atrophy Neurologic: cognition slightly delayed Results & Data ([facility]) Vital Signs (Past 12 Hours) Vital Signs Temp Pulse Resp BP Pulse Ox 02/13/21 07:31 97.3 F L 72 16 126/75 92 02/13/21 04:07 98.6 F 66 14 117/73 96 PG Care Time/CCT Total # of Minutes Spent Total Time Spent: 35 Total Time Spent with Patient: Total time spent is greater than 50% in coordination of care (as documented) at patient's floor/unit and/or counseling patient: Coding Level of Care Code 43715 Subseq Hosp Care Lvl 3 Diagnoses Abdominal pain R10.9 Anxiety F41.9 Palliative care encounter Z51.5 Pancreatic cancer C25.9
[2021-02-13] MEDS: SODIUM CHLORIDE 0.9% 1000ML 1,000 ML IV SCH (13:53)
[2021-02-13] MEDS ORDERED: bisacodyL 10 MG SUPP PR ONE (18:12)
--- NOTE | 2021-02-13 18:14 | Hospitalist Progress Note ---
Date of Service February 13, 2021 Assessment & Plan (1) Cellulitis of chest wall: Plan: - IMPROVING. - Left upper chest near her port w/ extension to L breast. - Had extravasation of her chemo around 01/29 - Completed course of Vancomycin -- Stopped rocephin due to rapidly worsening LFTs. - BCx - remain NGTD (2) Extravasation injury of IV catheter site with other complication: Plan: - see #1 above - appreciate gen surg consult and recs -- expected erythema/induration from chemical inflammation - no necrosis -- sometimes do require surgery but would be extensive and may be more harm than good -- will need close monitoring (3) Abnormal LFTs: Plan: - ACUTE - CT - worsening pancreatic head mass - possible compression of pancreatitic duct? biliary ductal dilatation, carcinomatosis, and worsening liver mets - LFTs continue to downtrend but t. bili continues to rise - concern for CBD obstruction which places at risk for cholangitis - Will monitor LFTs - Given the progression of her disease, pain, and prognosis - ERCP risk may outweigh benefits -- Will discuss with GI to see at what point would we need to consider ERCP or if it is even safe to do so we can supply all the information possible to her to make an informed decision on what she would want - Palliative care is following - patient is now DNR/DNI - however still wants treatment for basic things but no "heroics" (4) Cancer associated pain: Plan: - IMPROVING - On chronic, complex regimen including Fentanyl patch, Methadone, Dilaudid - Dilaudid DIRECTOR OF MANUFACTURING initiated -- Appreciate Dr. Humphrey's assistance - basal rate added; D/C Fentanyl and lower Methadone - Having constipation - Continue Colace/Senna; Miralax; will add Dulcolax -- consider Relistor (5) Anxiety: Plan: - NEELA ativan 1mg QAM, 1mg q afternoon, 2mg HS - will need to monitor given DIRECTOR OF MANUFACTURING (6) Pancreatic cancer: Plan: - Stage 4; Follows with [facility] - Dr. Lara and Guera TORIBIO - Modified FOLFOX regimen recently - Despite chemo her disease has progressed significantly - worsening lung mets, liver mets, peritoneal implants/carcinomatosis, increased size of pancreatic mass - Bridging the approach of palliative/hospice services - appreciate Dr. Humphrey's input and assistance - On discussion (02/11) patient feels she may not have an option to continue chemotherapy - patient does express interest in hospice services to continue the DIRECTOR OF MANUFACTURING pump -- Patient's goal is to be at home but also need to consider the needs of family as well and if they can accommodate physically/emotionally; (7) Superior mesenteric vein thrombosis: Plan: - lovenox 1.5mg/kg daily - anti-factor Xa level just shy of therapeutic - no changes - especially since we are rapidly approaching comfort care (8) Leukopenia: Plan: - 2nd to recent chemo (9) Multiple pulmonary nodules: Plan: - noted on CT chest -- 2nd to metastatic pancreatic ca (10) Elevated INR: Plan: - likely 2nd to poor liver synthetic function due to infiltration of liver by metastatic disease + lovenox (11) Severe protein-calorie malnutrition: Plan: - 14Kg weight loss since 08/2020 due to stage 4 ca (12) DVT prophylaxis: Plan: lovenox Plan: - Continue to control pain - Discussions of palliative care/hospice - family meeting completed today; w robert on the logistics of home set-up - DIRECTOR OF MANUFACTURING Rx signed and given to case management - plan to place SQ line prior to leaving hospital (performed by hospice service) Admission and Anticipated Discharge Date Admission Date: February 06, 2021 Review of Systems Review of Systems: REVIEW OF SYSTEMS General/Constitutional: Denies fever/chills Cardiovascular: + chest pain related to cellulitis site (nearly resolved - only painful with palpation); Denies palpitations, edema Respiratory: Denies cough, SOB, wheezing GI: + abdominal pain (better controlled with DIRECTOR OF MANUFACTURING), + constipation; Denies nausea, vomiting : Denies dysuria Musculoskeletal: Denies joint/muscle aches Neurologic: Denies dizziness/lightheadedness Physical Exam Physical Exam: PHYSICAL EXAM General Appearance: 61 y/o female in NAD who is A&O x 3 HEENT: Head is normocephalic/atraumatic; Hearing grossly intact; Mucous membranes moist Neck: Supple; Trachea midline; Neg JVD Heart: RRR with no M/G/R Lungs: CTA in all lung hsu bilaterally; Respirations unlabored; Neg accessory muscle use Abdomen: tender; Positive BS x 4 quadrants Extremities: Neg cyanosis or edema Neurological: Speech clear; Gross motor/sensory function intact; Neg focal neurologic deficits Psychiatric: Appropriate mood/affect Skin: Port site in L upper chest with induration and erythema mostly near axilla - mostly pink in color, not warm to touch; mild tenderness to palpation; no signs of necrosis Results & Data Results & Data ([facility]) Vital Signs (Past 12 Hours) Vital Signs Temp Pulse Resp BP Pulse Ox 02/13/21 15:48 36.7 C 77 16 104/69 95 02/13/21 11:48 36.4 C L 82 17 95/64 L 92 02/13/21 07:31 36.3 C L 72 16 126/75 92 PG Care Time/CCT Total # of Minutes Spent Total Time Spent with Patient: Total time spent is greater than 50% in coordination of care (as documented) at patient's floor/unit and/or counseling patient: Coding Level of Care Code 90077 Subseq Hosp Care Lvl 2 Diagnoses Cellulitis of chest wall L03.313 Extravasation injury of IV catheter site with other complication T82.898A Abnormal LFTs R94.5 Cancer associated pain G89.3 Anxiety F41.9 Pancreatic cancer C25.9 Superior mesenteric vein thrombosis K55.069 Leukopenia D72.819 Leukopenia type: unspecified Multiple pulmonary nodules R91.8 Elevated INR R79.1 Severe protein-calorie malnutrition E43 DVT prophylaxis Z29.9 (1) Leukopenia Leukopenia type: unspecified Qualified Code(s): D72.819 - Decreased white blood cell count, unspecified
[2021-02-13] MEDS ORDERED: bisacodyL 10 MG SUPP PR STA (18:45)
[2021-02-13] MEDS: METHADONE HCL 5 MG TAB PO SCH (20:26)
[2021-02-13] MEDS: busPIRone 15 MG TAB PO SCH (20:26)
[2021-02-14] MEDS: GABAPENTIN 800 MG TAB PO SCH ×3 (04:32→21:21)
[2021-02-14] MEDS: PROCHLORPERAZINE MALEATE 10 MG TAB PO SCH ×3 (04:32→21:22)
[2021-02-14] MEDS: dexAMETHasone 4 MG in SYRINGE 0 ML IV SCH ×2 (08:46→21:21)
[2021-02-14] MEDS: busPIRone 5 MG TAB PO SCH (08:46)
[2021-02-14] MEDS: LORazepam 1 MG TAB PO SCH ×3 (08:46→21:20)
[2021-02-14] MEDS: DOCUSATE SODIUM/SENNA 50/8.6MG TAB PO SCH ×2 (08:46→08:50)
[2021-02-14] MEDS: ERGOCALCIFEROL 50,000 UNITS 1250 MCG CAP PO SCH (08:46)
[2021-02-14] MEDS: MULTIVITAMIN TAB PO SCH (08:46)
[2021-02-14] MEDS: buPROPion SR 100 MG TABCR PO SCH (08:46)
[2021-02-14] MEDS: ATORVASTATIN 40 MG TAB PO SCH (08:46)
[2021-02-14] MEDS: ONDANSETRON 8MG OD TAB PO SCH ×3 (08:46→23:23)
[2021-02-14] MEDS: ENOXAPARIN 100 MG/1ML SYR SQ SCH (08:47)
[2021-02-14] MEDS: PANTOprazole 40 MG TAB PO SCH (08:47)
--- NOTE | 2021-02-14 11:38 | Palliative Care Progress Note ---
Date of Service February 14, 2021 Assessment & Plan (1) Abdominal pain: Plan: By Miracle's report this is improved. 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 (2) Palliative care encounter: Plan: Miracle is gradually declining and more weak each day with increased confusion. Plan for home with hospice on Wednesday if able to arrange support with hospice that accepts her insurance. (3) Pancreatic cancer: Admission and Anticipated Discharge Date Admission Date: February 06, 2021 Subjective Reports that pain is about half of what it was. She has had 8 bolus doses (4mg) in four hours. She is having increased confusion. Review of Systems Review of Systems: [place] Symptom Assessment Scale Pain 2/3 Dyspnea 0/3 Anxiety 1/3 Fatigue 2/3 Nausea 0/3 Palliative Performance Score 50% Physical Exam Constitutional: + lethargic (mild, delayed response with conversation); no a cute distress Respiratory: normal respiratory effort; no labored breathing Cardiovascular: Extremities: no edema Gastrointestinal (Abdomen): RUQ tenderness Musculoskeletal: Extremities: + muscle atrophy Skin: erythema and induration left breast and axilla Neurologic: + confused Psychiatric: Affect: + labile affect Results & Data ([facility]) Vital Signs (Past 12 Hours) Vital Signs Temp Pulse Resp BP Pulse Ox 02/14/21 08:13 99.1 F 71 16 112/72 97 02/14/21 02:46 98.8 F 65 16 104/66 93 PG Care Time/CCT Total # of Minutes Spent Total Time Spent: 30 Total Time Spent with Patient: Total time spent is greater than 50% in coordination of care (as documented) at patient's floor/unit and/or counseling patient: Coding Level of Care Code 12944 Subseq Hosp Care Lvl 2 Diagnoses Abdominal pain R10.9 Palliative care encounter Z51.5 Pancreatic cancer C25.9
--- NOTE | 2021-02-14 11:54 | Hospitalist Progress Note ---
Date of Service February 14, 2021 Assessment & Plan (1) Cellulitis of chest wall: Plan: - IMPROVING/STABLE - mostly just induration just lateral to port near axilla with skin toughened in that area - Left upper chest near her port w/ extension to L breast on presentation but much improved on the breast - Had extravasation of her chemo around 01/29 - Completed course of Vancomycin -- Stopped rocephin due to rapidly worsening LFTs. - BCx - remain NGTD (2) Extravasation injury of IV catheter site with other complication: Plan: - see #1 above - appreciate gen surg consult and recs -- expected erythema/induration from chemical inflammation - no necrosis -- sometimes do require surgery but would be extensive and may be more harm than good -- will need close monitoring (3) Abnormal LFTs: Plan: - ACUTE - CT - worsening pancreatic head mass - possible compression of pancreatitic duct? biliary ductal dilatation, carcinomatosis, and worsening liver mets - Will discuss with Miracle if she would like this rechecked as the plan is to move to hospice services - concern for CBD obstruction which places at risk for cholangitis - Given the progression of her disease, pain, and prognosis - ERCP risk may outweigh benefits - Palliative care is following - patient is now DNR/DNI - arrangements for hospice services in process (4) Cancer associated pain: Plan: - IMPROVING - Was onn chronic, complex regimen including Fentanyl patch, Methadone, Dilaudid - Dilaudid MARBLE MASON with plans for SQ line placement to continue at home -- Appreciate Dr. Humphrey's assistance - basal rate and bolus dosing; D/C'd Fentanyl and lower Methadone dosing - Suppository assisted with bowel movement; can hold bowel regimen currently but will benefit from ongoing constipation prevention (5) Anxiety: Plan: - NEELA ativan 1mg QAM, 1mg q afternoon, 2mg HS (6) Pancreatic cancer: Plan: - Stage 4; Follows with [facility] - Dr. Lara and Guera TORIBIO - Modified FOLFOX regimen recently - Despite chemo her disease has progressed significantly - worsening lung mets, liver mets, peritoneal implants/carcinomatosis, increased size of pancreatic mass - Planning on palliative/hospice services - appreciate Dr. Humphrey's input and assistance (7) Superior mesenteric vein thrombosis: Plan: - lovenox 1.5mg/kg daily - anti-factor Xa level just shy of therapeutic - no changes - especially since we are rapidly approaching comfort care (8) Leukopenia: Plan: - 2nd to recent chemo (9) Multiple pulmonary nodules: Plan: - noted on CT chest -- 2nd to metastatic pancreatic ca (10) Elevated INR: Plan: - likely 2nd to poor liver synthetic function due to infiltration of liver by metastatic disease + lovenox (11) Severe protein-calorie malnutrition: Plan: - 14Kg weight loss since 08/2020 due to stage 4 ca (12) DVT prophylaxis: Plan: lovenox Plan: - Continue to control pain - Discussions of palliative care/hospice - family meeting completed on 02/13; working on the logistics of home set-up - MARBLE MASON Rx signed and given to case management - plan to place SQ line prior to leaving hospital (performed by hospice service) Admission and Anticipated Discharge Date Admission Date: February 06, 2021 Subjective Patient was able to move her bowels today. States it did give some pain relief to her abdomen but now a bit crampy like she may have to move them some more. She would like to get a shower. She reports her pain is better controlled just some cramping today. Abdomen looks less distended. Induration at port site remains and tender but she reports it doesn't bother her much and ice is helping. Review of Systems Review of Systems: REVIEW OF SYSTEMS General/Constitutional: Denies fever/chills Cardiovascular: + chest tenderness related to induration site (not bothersome and ice helps) ; Denies palpitations, edema Respiratory: Denies cough, SOB, wheezing GI: + abdominal pain (better controlled with MARBLE MASON), + cramping; Denies nausea, vomiting : Denies dysuria Musculoskeletal: Denies joint/muscle aches Neurologic: Denies dizziness/lightheadedness Physical Exam Physical Exam: PHYSICAL EXAM General Appearance: 61 y/o female in NAD who is A&O x 3 HEENT: Head is normocephalic/atraumatic; Hearing grossly intact; Mucous membranes moist Neck: Supple; Trachea midline; Neg JVD Heart: RRR with no M/G/R Lungs: CTA in all lung hsu bilaterally; Respirations unlabored; Neg accessory muscle use Abdomen: tender but less distended; Positive BS x 4 quadrants Extremities: Neg cyanosis or edema Neurological: Speech clear; Gross motor/sensory function intact; Neg focal neurologic deficits Psychiatric: Appropriate mood/affect Skin: Port site in L upper chest with induration mostly near axilla - rather isolated region; mild tenderness to palpation; no signs of necrosis Results & Data Results & Data ([facility]) Vital Signs (Past 12 Hours) Vital Signs Temp Pulse Resp BP Pulse Ox 02/14/21 08:13 37.3 C 71 16 112/72 97 02/14/21 02:46 37.1 C 65 16 104/66 93 PG Care Time/CCT Total # of Minutes Spent Total Time Spent with Patient: Total time spent is greater than 50% in coordination of care (as documented) at patient's floor/unit and/or counseling patient: Coding Level of Care Code 87881 Subseq Hosp Care Lvl 2 Diagnoses Cellulitis of chest wall L03.313 Extravasation injury of IV catheter site with other complication T82.898A Abnormal LFTs R94.5 Cancer associated pain G89.3 Anxiety F41.9 Pancreatic cancer C25.9 Superior mesenteric vein thrombosis K55.069 Leukopenia D72.819 Leukopenia type: unspecified Multiple pulmonary nodules R91.8 Elevated INR R79.1 Severe protein-calorie malnutrition E43 DVT prophylaxis Z29.9 (1) Leukopenia Leukopenia type: unspecified Qualified Code(s): D72.819 - Decreased white blood cell count, unspecified
[2021-02-14] MEDS: HYDROmorphone PCA 30 MG/30 ML IV PRN (12:36)
[2021-02-14] MEDS: SODIUM CHLORIDE 0.9% 1000ML 1,000 ML IV SCH (15:02)
[2021-02-14] MEDS: METHADONE HCL 5 MG TAB PO SCH (21:20)
[2021-02-14] MEDS: busPIRone 15 MG TAB PO SCH (21:22)
[2021-02-15] MEDS: PROCHLORPERAZINE MALEATE 10 MG TAB PO SCH ×3 (05:11→21:02)
[2021-02-15] MEDS: GABAPENTIN 800 MG TAB PO SCH ×3 (05:11→21:04)
[2021-02-15] MEDS: HYDROmorphone PCA 30 MG/30 ML IV PRN ×3 (08:25→23:08)
[2021-02-15] MEDS: busPIRone 5 MG TAB PO SCH (08:52)
[2021-02-15] MEDS: buPROPion SR 100 MG TABCR PO SCH (08:52)
[2021-02-15] MEDS: dexAMETHasone 4 MG in SYRINGE 0 ML IV SCH (08:52)
[2021-02-15] MEDS: ENOXAPARIN 100 MG/1ML SYR SQ SCH (08:53)
[2021-02-15] MEDS: PANTOprazole 40 MG TAB PO SCH (08:53)
[2021-02-15] MEDS: MULTIVITAMIN TAB PO SCH (08:53)
[2021-02-15] MEDS: ATORVASTATIN 40 MG TAB PO SCH (08:54)
[2021-02-15] MEDS: DOCUSATE SODIUM/SENNA 50/8.6MG TAB PO SCH (08:54)
[2021-02-15] MEDS: ONDANSETRON 8MG OD TAB PO SCH ×3 (08:54→23:30)
[2021-02-15] MEDS: LORazepam 1 MG TAB PO SCH ×3 (08:56→21:12)
[2021-02-15] MEDS: SODIUM CHLORIDE 0.9% 1000ML 1,000 ML IV SCH (13:44)
--- NOTE | 2021-02-15 19:35 | Hospitalist Progress Note ---
Date of Service February 15, 2021 Assessment & Plan (1) Cellulitis of chest wall: Plan: - IMPROVING/STABLE - mostly just induration just lateral to port near axilla with skin toughened in that area - Left upper chest near her port w/ extension to L breast on presentation but much improved on the breast - Had extravasation of her chemo around 01/29 - Completed course of Vancomycin -- Stopped rocephin due to rapidly worsening LFTs. - Continue ice - BCx - remain NGTD (2) Extravasation injury of IV catheter site with other complication: Plan: - see #1 above - appreciate gen surg consult and recs -- expected erythema/induration from chemical inflammation - no necrosis -- sometimes do require surgery but would be extensive and may be more harm than good -- will need close monitoring (3) Abnormal LFTs: Plan: - ACUTE - CT - worsening pancreatic head mass - possible compression of pancreatitic duct? biliary ductal dilatation, carcinomatosis, and worsening liver mets - Will discuss with Miracle if she would like this rechecked as the plan is to move to hospice services - concern for CBD obstruction which places at risk for cholangitis -- Suspect the bili is liking still rising - Given the progression of her disease, pain, and prognosis - ERCP risk may outweigh benefits - Palliative care is following - patient is now DNR/DNI - arrangements for hospice services to go home on Wednesday (4) Cancer associated pain: Plan: - [place] - Was on chronic, complex regimen including Fentanyl patch, Methadone, Dilaudid - 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 Humphrey's assistance - basal rate and bolus dosing; D/C'd Fentanyl and lower Methadone dosing -- Did increase to basal 1.25 and changed bolus to Q15M - Reduced Decadron to once daily and will taper - can convert to oral for home use - Suppository assisted with bowel movement; can hold bowel regimen currently but will benefit from ongoing constipation prevention (5) Anxiety: Plan: - NEELA ativan 1mg QAM, 1mg q afternoon, 2mg HS (6) Pancreatic cancer: Plan: - Stage 4; Follows with [facility] - Dr. Lara and Guera TORIBIO - Modified FOLFOX regimen recently - Despite chemo her disease has progressed significantly - worsening lung mets, liver mets, peritoneal implants/carcinomatosis, increased size of pancreatic mass - Planning on palliative/hospice services - appreciate Dr. Humphrey's input and assistance (7) Superior mesenteric vein thrombosis: Plan: - lovenox 1.5mg/kg daily - anti-factor Xa level just shy of therapeutic - no changes - especially since we are rapidly approaching comfort care (8) Leukopenia: Plan: - 2nd to recent chemo (9) Multiple pulmonary nodules: Plan: - noted on CT chest -- 2nd to metastatic pancreatic ca (10) Elevated INR: Plan: - likely 2nd to poor liver synthetic function due to infiltration of liver by metastatic disease + lovenox (11) Severe protein-calorie malnutrition: Plan: - 14Kg weight loss since 08/2020 due to stage 4 ca (12) DVT prophylaxis: Plan: lovenox Plan: - Continue to control pain - Discussions of palliative care/hospice - family meeting completed on 02/13; working on the logistics of home set-up for Wednesday - SENIOR [employer]ACLE APPLICATIONS DEVELOPER Rx signed and given to case management (will need to discuss dose adjustment) - plan to place SQ line prior to leaving hospital (performed by hospice service) - Discussed with Miracle if she wanted to continue some of her medications (ie Statin therapy, etc) - she was very tearful and stated she doesn't want to believe she is dying. She feels the medications are not bothersome and would like to stay on them Admission and Anticipated Discharge Date Admission Date: February 06, 2021 Subjective Reporting more pain today. 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 Reports she found out the secret menu of burgers and hotdogs and was excited about the food options. However also tearful today as she feels like she is not really dying and is not ready to . Talked with her awhile on multiple occasions today. Tried to talk about other topics as to not focus so much on the medical. Discussed her time in [place] and talked about [employer] and shared some pictures with her. Review of Systems Review of Systems: REVIEW OF SYSTEMS General/Constitutional: Denies fever/chills Cardiovascular: + chest tenderness related to induration site (not bothersome and ice helps) ; Denies palpitations, edema Respiratory: Denies cough, SOB, wheezing GI: + abdominal painDenies nausea, vomiting : Denies dysuria Musculoskeletal: Denies joint/muscle aches Neurologic: Denies dizziness/lightheadedness Physical Exam Physical Exam: PHYSICAL EXAM General Appearance: 61 y/o female in NAD who is A&O x 3 HEENT: Head is normocephalic/atraumatic; Hearing grossly intact; Mucous membranes moist Neck: Supple; Trachea midline; Neg JVD Heart: RRR with no M/G/R Lungs: CTA in all lung hsu bilaterally; Respirations unlabored; Neg accessory muscle use Abdomen: tender but less distended; Positive BS x 4 quadrants Extremities: Neg cyanosis or edema Neurological: Speech clear; Gross motor/sensory function intact; Neg focal neurologic deficits Psychiatric: Appropriate mood/affect Skin: Port site in L upper chest with induration mostly near axilla - rather isolated region; mild tenderness to palpation; no signs of necrosis Results & Data Results & Data ([facility]) Vital Signs (Past 12 Hours) Vital Signs Temp Pulse Pulse Resp BP BP Pulse Ox 02/15/21 19:04 37.0 C 78 16 102/67 96 02/15/21 14:33 36.9 C 74 16 116/76 94 02/15/21 07:44 37 C 67 16 102/63 97 PG Care Time/CCT Total # of Minutes Spent Total Time Spent with Patient: Total time spent is greater than 50% in coordination of care (as documented) at patient's floor/unit and/or counseling patient: Coding Level of Care Code 95149 Subseq Hosp Care Lvl 3 Diagnoses Cellulitis of chest wall L03.313 Extravasation injury of IV catheter site with other complication T82.898A Abnormal LFTs R94.5 Cancer associated pain G89.3 Anxiety F41.9 Pancreatic cancer C25.9 Superior mesenteric vein thrombosis K55.069 Leukopenia D72.819 Leukopenia type: unspecified Multiple pulmonary nodules R91.8 Elevated INR R79.1 Severe protein-calorie malnutrition E43 DVT prophylaxis Z29.9 (1) Leukopenia Leukopenia type: unspecified Qualified Code(s): D72.819 - Decreased white blood cell count, unspecified
[2021-02-15] MEDS: busPIRone 15 MG TAB PO SCH (21:03)
[2021-02-15] MEDS: METHADONE HCL 5 MG TAB PO SCH (21:13)
[2021-02-16] MEDS: PROCHLORPERAZINE MALEATE 10 MG TAB PO SCH ×3 (03:07→21:20)
[2021-02-16] MEDS: GABAPENTIN 800 MG TAB PO SCH ×3 (03:08→21:21)
[2021-02-16] MEDS: ONDANSETRON 8MG OD TAB PO SCH ×3 (09:00→23:11)
[2021-02-16] MEDS: LORazepam 1 MG TAB PO SCH ×3 (09:36→21:21)
[2021-02-16] MEDS: dexAMETHasone 4 MG in SYRINGE 0 ML IV SCH (09:37)
[2021-02-16] MEDS: DOCUSATE SODIUM/SENNA 50/8.6MG TAB PO SCH (09:38)
[2021-02-16] MEDS: ATORVASTATIN 40 MG TAB PO SCH (09:38)
[2021-02-16] MEDS: busPIRone 5 MG TAB PO SCH (09:38)
[2021-02-16] MEDS: PANTOprazole 40 MG TAB PO SCH (09:38)
[2021-02-16] MEDS: MULTIVITAMIN TAB PO SCH (09:39)
[2021-02-16] MEDS: buPROPion SR 100 MG TABCR PO SCH (09:39)
[2021-02-16] MEDS: ENOXAPARIN 100 MG/1ML SYR SQ SCH (09:39)
[2021-02-16] MEDS: SODIUM CHLORIDE 0.9% 1000ML 1,000 ML IV SCH (13:10)
--- NOTE | 2021-02-16 13:47 | Hospitalist Progress Note ---
Date of Service February 16, 2021 Assessment & Plan (1) Cellulitis of chest wall: Plan: - IMPROVING/STABLE - mostly just induration just lateral to port near axilla with skin toughened in that area - Left upper chest near her port w/ extension to L breast on presentation but much improved on the breast - Had extravasation of her chemo around 01/29 - Completed course of Vancomycin -- Stopped rocephin due to rapidly worsening LFTs. - Continue ice - BCx - remain NGTD (2) Extravasation injury of IV catheter site with other complication: Plan: - see #1 above - appreciate gen surg consult and recs -- expected erythema/induration from chemical inflammation - no necrosis -- sometimes do require surgery but would be extensive and may be more harm than good -- will need close monitoring (3) Abnormal LFTs: Plan: - ACUTE - CT - worsening pancreatic head mass - possible compression of pancreatitic duct? biliary ductal dilatation, carcinomatosis, and worsening liver mets - Have not repeated labs since determination for hospice - concern for CBD obstruction which places at risk for cholangitis -- Suspect the bili is liking still rising - Given the progression of her disease, pain, and prognosis - ERCP risk may outweigh benefits - Palliative care is following - patient is now DNR/DNI - arrangements for hospice services to go home on Wednesday (4) Cancer associated pain: Plan: - [place] - states she does forget to click for bolus - Was on chronic, complex regimen including Fentanyl patch, Methadone, Dilaudid - Dilaudid [employer] INTER[employer]ER with plans for SQ line placement to continue at home -- Appreciate Dr. Humphrey's assistance - basal rate and bolus dosing; D/C'd Fentanyl and lower Methadone dosing -- Did increase to basal 1.25 and changed bolus to Q15M - gave Rx to Case Management - Reduced Decadron to once daily and will taper - can convert to oral for home use - Suppository assisted with bowel movement; can keep Senna and can convert to PRN if frequent BMs (5) Anxiety: Plan: - NEELA ativan 1mg QAM, 1mg q afternoon, 2mg HS (6) Pancreatic cancer: Plan: - Stage 4; Follows with [facility] - Dr. Lara and Guera TORIBIO - Modified FOLFOX regimen recently - Despite chemo her disease has progressed significantly - worsening lung mets, liver mets, peritoneal implants/carcinomatosis, increased size of pancreatic mass - Planning on palliative/hospice services - appreciate Dr. Humphrey's input and assistance (7) Superior mesenteric vein thrombosis: Plan: - lovenox 1.5mg/kg daily - anti-factor Xa level just shy of therapeutic - no changes - especially since we are rapidly approaching comfort care (8) Leukopenia: Plan: - 2nd to recent chemo (9) Multiple pulmonary nodules: Plan: - noted on CT chest -- 2nd to metastatic pancreatic ca (10) Elevated INR: Plan: - likely 2nd to poor liver synthetic function due to infiltration of liver by metastatic disease (11) Severe protein-calorie malnutrition: Plan: - 14Kg weight loss since 08/2020 due to stage 4 ca (12) DVT prophylaxis: Plan: lovenox Plan: - Continue to control pain - Discussions of palliative care/hospice - family meeting completed on 02/13; working on the logistics of home set-up for Wednesday - [employer] INTER[employer] Rx signed and given to case management - plan to place SQ line prior to leaving hospital (performed by hospice service) - Discussed with Miracle if she wanted to discontinue some of her medications (ie Statin therapy, etc) - she was very tearful and stated she doesn't want to believe she is dying. She feels the medications are not bothersome and would like to stay on them - Plan is for discharge home with sisters pending SQ line placement by hospice on Wednesday Admission and Anticipated Discharge Date Admission Date: February 06, 2021 Subjective Reports pain and appetite are so-so today. Is excited to be getting out of the hospital soon. She states she keeps forgetting to hit her button for pain. Review of Systems Review of Systems: REVIEW OF SYSTEMS General/Constitutional: Denies fever/chills Cardiovascular: + chest tenderness related to induration site; Denies palpitations, edema Respiratory: Denies cough, SOB, wheezing GI: + abdominal pain (reports as so-so today); Denies nausea, vomiting : Denies dysuria Musculoskeletal: Denies joint/muscle aches Neurologic: Denies dizziness/lightheadedness Physical Exam Physical Exam: PHYSICAL EXAM General Appearance: 61 y/o female in NAD who is A&O x 3 HEENT: Head is normocephalic/atraumatic; Hearing grossly intact; Mucous membr anes moist Neck: Supple; Trachea midline; Neg JVD Heart: RRR with no M/G/R Lungs: CTA in all lung hsu bilaterally; Respirations unlabored; Neg accessory muscle use Abdomen: tender but less distended; Positive BS x 4 quadrants Extremities: Neg cyanosis or edema Neurological: Speech clear; Gross motor/sensory function intact; Neg focal neurologic deficits Psychiatric: Appropriate mood/affect; intermittently confused/distracted Skin: Port site in L upper chest with induration mostly near axilla - rather isolated region; mild tenderness to palpation; no signs of necrosis Results & Data Results & Data ([facility]) Vital Signs (Past 12 Hours) Vital Signs Temp Pulse Pulse Resp BP Pulse Ox 02/16/21 07:00 37.1 C 70 18 98/64 L 94 02/16/21 02:52 37.3 C 76 16 110/76 93 PG Care Time/CCT Total # of Minutes Spent Total Time Spent with Patient: Total time spent is greater than 50% in coordination of care (as documented) at patient's floor/unit and/or counseling patient: Coding Level of Care Code 52551 Subseq Hosp Care Lvl 2 Diagnoses Cellulitis of chest wall L03.313 Extravasation injury of IV catheter site with other complication T82.898A Abnormal LFTs R94.5 Cancer associated pain G89.3 Anxiety F41.9 Pancreatic cancer C25.9 Superior mesenteric vein thrombosis K55.069 Leukopenia D72.819 Leukopenia type: unspecified Multiple pulmonary nodules R91.8 Elevated INR R79.1 Severe protein-calorie malnutrition E43 DVT prophylaxis Z29.9 (1) Leukopenia Leukopenia type: unspecified Qualified Code(s): D72.819 - Decreased white blood cell count, unspecified
[2021-02-16] MEDS: HYDROmorphone PCA 30 MG/30 ML IV PRN (14:02)
[2021-02-16] MEDS: METHADONE HCL 5 MG TAB PO SCH (21:19)
[2021-02-16] MEDS: busPIRone 15 MG TAB PO SCH (21:22)
[2021-02-17] MEDS: GABAPENTIN 800 MG TAB PO SCH ×2 (03:46→08:09)
[2021-02-17] MEDS: PROCHLORPERAZINE MALEATE 10 MG TAB PO SCH ×2 (03:47→12:58)
[2021-02-17] MEDS: HYDROmorphone PCA 30 MG/30 ML IV PRN (08:06)
[2021-02-17] MEDS: PANTOprazole 40 MG TAB PO SCH (08:09)
[2021-02-17] MEDS: buPROPion SR 100 MG TABCR PO SCH (08:09)
[2021-02-17] MEDS: DOCUSATE SODIUM/SENNA 50/8.6MG TAB PO SCH (08:09)
[2021-02-17] MEDS: busPIRone 5 MG TAB PO SCH (08:09)
[2021-02-17] MEDS: MULTIVITAMIN TAB PO SCH (08:09)
[2021-02-17] MEDS: ATORVASTATIN 40 MG TAB PO SCH (08:09)
[2021-02-17] MEDS: ONDANSETRON 8MG OD TAB PO SCH ×2 (08:09→16:47)
[2021-02-17] MEDS: dexAMETHasone 4 MG in SYRINGE 0 ML IV SCH (08:09)
[2021-02-17] MEDS: LORazepam 1 MG TAB PO SCH ×2 (08:11→12:59)
[2021-02-17] MEDS: ENOXAPARIN 100 MG/1ML SYR SQ SCH (08:11)
--- NOTE | 2021-02-17 09:40 | Hospitalist Progress Note ---
Date of Service February 17, 2021 Assessment & Plan Admission and Anticipated Discharge Date Admission Date: February 06, 2021 Results & Data Results & Data ([facility]) Vital Signs (Past 12 Hours) Vital Signs Temp Pulse Resp BP Pulse Ox 02/17/21 07:35 37.1 C 72 17 100/65 96 02/16/21 22:05 37.3 C 83 16 112/76 93 PG Care Time/CCT Total # of Minutes Spent Total Time Spent with Patient: Total time spent is greater than 50% in coordination of care (as documented) at patient's floor/unit and/or counseling patient: Coding
--- NOTE | 2021-02-17 10:26 | Discharge Summary ---
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 Patient has completed Gemcitabine and Abraxane and between July 22 2020 to November 28, 2020. Patient's been following with heme-onc at [facility] [address] as well as Dr. Angelina Humphrey for palliative care. Her disease has progressed with multiple liver lesions suggesting liver metastasis. Patient recently started on modified FOLFOX 6 without 5FU bolus. However, patient had extravasation of her chemotherapy and it leaked to her left chest. This occurred on this January 28, 2021. Since then she has noticed a small area of erythema and pain, however this has gradually increased in size. Patient was told to come to the ER if the size increased depsite being on antibiotics. Patient's care is taken Dilaudid methadone and gabapentin for pain relief. She also takes Zofran and Compazine for nausea. Despite Admission Exam Per Admitting Provider The patient appeared well nourished and normally developed. Vital signs as documented. Head exam is normocephalic atraumatic she is with alopecia very little hair Neck is without JVD, thyromegaly, or carotid bruits. Lungs are clear to auscultation exception of absent breath sounds to her left base, where she has chronic elevation of her left hemidiaphragm Cardiac exam, Rhythm is regular.. No murmurs, rubs or gallops. Abdominal exam reveals normal bowel sounds, soft non tender, no masses left breast has large clearly defined area of erythema. left breast appears larger. Neurologic exam is alert and oriented, no focal loss of strength or sensation Skin is without bruises or rashes Principal Diagnosis Extravasation injury of IV catheter site with other complication, Cellulitis, Metastatic Pancreatic Ca Discharge Exam PHYSICAL EXAM General Appearance: 61 y/o female who is thin, cacechtic with bitemporal muscle wasting, no acute distress, HEENT- normocephalic/atraumatic, hearing intact, mm slightly dry Neck trachea midline without deviation Chest: L chest port -- site looks good, no erythema, some skin thickening/induration to axillary region, minimally tender without necrosis Resp: CTAB, no w/r, faint crackles/diminished in the bases, on room air CV: RRR, no m/r/g, no calf tenderness or edema GI: +BS, distended, +tenderness to palpation epigastric region Ext; moves all extremities Psych: alert and oriented to person, place, intermittent confusion with time, labile affect Discharge Data Allergies Allergy/AdvReac Type Severity Reaction Status Date / Time latex Allergy Intermediate rash Verified 02/06/21 12:05 sulfamethoxazole Allergy Intermediate itching, Verified 02/06/21 12:05 chest tightness trimethoprim Allergy Intermediate itching, Verified 02/06/21 12:05 chest tightness adhesive Allergy Unknown ITCHY SKIN Verified 02/06/21 12:05 clindamycin AdvReac Severe Diarrhea Verified 02/06/21 12:05 doxycycline AdvReac Intermediate nausea and Verified 02/06/21 12:05 vomiting Consultations 02/06/21 12:32 ED Decision to Admit Stat 02/06/21 18:05 Consult General Surgery Routine 02/10/21 08:15 Consult Palliative Care Routine Ordered Studies Chest X-Ray 02/06/21 09:57 SINGLE VIEW CHEST CLINICAL HISTORY: Sepsis. FINDINGS: An AP, portable, upright chest radiograph is compared to study dated 09/02/2020 and correlated with chest CT dated 12/02/2020. A left subclavian central venous infusion port is unchanged in position. The patient is status post midline sternotomy. The cardiomediastinal silhouette is unremarkable. There is chronic elevation of the left hemidiaphragm with atelectasis of the left lower lung. [facility]ion previous left-sided pulmonary resection. There is no airspace consolidation typical for pneumonia or large pleural effusion. Atelectasis is seen at the right lung base. No pneumothorax is seen. The skeletal structures are osteopenic. The bony thorax is grossly intact. IMPRESSION: Chronic changes as above with no acute cardiopulmonary abnormality. ACT 112: Negative or not required by law. Electronically signed by: Ishan Holt M.D. 02/06/2021 10:54 AM Breast Ultrasound 02/06/21 10:41 US breast LT limited CLINICAL HISTORY: Left breast indurated by injection site COMPARISON STUDY: Chest CT December 02, 2020. TECHNIQUE: Sonography of the left upper chest adjacent to the port at site of induration was performed. FINDINGS: Left-sided Ggolre-u-Tyaw was noted. No fluid collection was identified on this exam to suggest an abscess. Subcutaneous fluid is noted within the left upper chest. No mass is identified within the left chest wall IMPRESSION: No fluid collection to suggest an abscess. Mild subcutaneous fluid of the left upper chest. ACT 112: Negative or not required by law. Electronically signed by: Rylan Carranza M.D. 02/06/2021 11:[address] 02/06/21 13:51 CT OF THE CHEST WITHOUT IV CONTRAST CLINICAL HISTORY: Extravasation of chemotherapy. Possible left breast necrosis. Pancreatic cancer. COMPARISON STUDY: Chest CT December 02, 2020. Left breast ultrasound performed earlier today. CT DOSE: 224.67 mGy.cm TECHNIQUE: Axial images of the chest were obtained without IV contrast. Images were reviewed in the axial, sagittal, and coronal planes. IV contrast was not administered for this examination. Automated exposure control was utilized for the study. A dose lowering technique was utilized adhering to the principles of ALARA. FINDINGS: A left subclavian [id number] is in place. The tip is within the distal SVC. Note is made of extensive left breast stranding and edema. There is also pronounced left breast skin thickening. No soft tissue gas is present. No loculated fluid collection is identified. Elevation of the left hemidiaphragm is unchanged. Note is made of mild cardiomegaly. A few mildly enlarged distal paraesophageal lymph nodes are noted. These have increased in size since prior CT. These are hypodense. No pneumothorax or pleural effusion is noted. There has been interval development of numerous small irregular pulmonary nodule since prior CT. A 1.2 cm subpleural right lower lobe nodular opacity has increased in size since prior exam. No suspicious lesions are identified within the bony thorax. Trace perihepatic ascites is noted. Numerous hypodense hepatic lesions represent metastases. These are suboptimally assessed on this unenhanced exam. These have increased in size since CT of December 02, 2020. Index right hepatic dome lesion measures 2.8 cm. Pancreatic ductal dilatation is partially imaged on this exam. IMPRESSION: 1. Pronounced left breast skin thickening and extensive edema throughout the left breast and adjacent soft tissues. Although nonspecific, the findings are likely related to chemotherapy extravasation. No soft tissue gas. No loculated fluid collection. 2. Interval development of numerous irregular small pulmonary nodules suggestive of metastases. 3. Increase in size of hepatic metastases, suboptimally assessed on this unenhanced exam. Interval development of distal paraesophageal lymphadenopathy. ACT 112: Negative or not required by law. Electronically signed by: Rylan Carranza M.D. 02/06/2021 4:29 PM Abdomen/Pelvis CT 02/08/21 09:48 CT OF THE ABDOMEN AND PELVIS WITH CONTRAST CLINICAL HISTORY: Metastatic pancreatic cancer. Elevated liver function tests. Evaluate for biliary obstruction. COMPARISON STUDY: CT of the abdomen and pelvis December 02, 2020. MRI of the abdomen December 11, 2020. TECHNIQUE: Following IV administration of 98 mL of Optiray, axial images of the abdomen and pelvis were obtained from the lung bases to the proximal femurs. Images were reviewed in the axial, sagittal, and coronal planes. IV contrast was administered without complication. Automated exposure control was utilized for the study. A dose lowering technique was utilized adhering to the principles of ALARA. CT DOSE: 338.88 mGy.cm FINDINGS: Elevation of the left hemidiaphragm is unchanged. Left breast skin thickening and diffuse stranding and edema is partially imaged. This was shown on chest CT of February 06, 2021. Multiple small irregular nodules within the lower lungs are noted. These have increased in size and number since prior CT. These measure up to 1.2 cm. No pneumatosis, free air or portal venous gas is present. There has been increase in size and number of numerous hepatic metastases since prior CT and MRI. These measure up to 3.2 cm. Right hepatic lobe hemangioma is noted. Capsu lar implants overlying the liver are noted. There are multiple peritoneal implants. A small amount of abdominal and pelvic ascites is noted. Splenomegaly is unchanged. 3.4 cm hypodense splenic lesion is unchanged. This is benign. There is mild intra and extra hepatic biliary ductal dilatation. Common bile duct measures 9 mm in caliber. Caliber change of the common bile duct at the level of the pancreatic head mass is noted. Pancreatic ductal dilatation with abrupt cut off is noted. A necrotic head and uncinate process mass measures approximately 6.3 cm. This is increased in size since prior exam. Adjacent lymphadenopathy is noted. The superior mesenteric artery is encased. Occlusion of the portosplenic confluence is again noted. There are associated collaterals. There is no hydronephrosis. There is no evidence for a bowel obstruction. No acute fracture or suspicious lesion is identified within the visualized skeletal structures. IMPRESSION: 1. Increase in size and number of numerous hepatic metastases since prior CT and MRI. Progression of pulmonary metastases and interval development of peritoneal implants with a small amount of abdominal and pelvic ascites. 2. Mild biliary ductal dilatation, as described above. 3. Increase in size of the pancreatic head mass with occlusion of the portosplenic confluence and encasement of the superior mesenteric artery. 4. Left breast skin thickening and diffuse edema, as shown on prior chest CT. ACT 112: Negative or not required by law. Electronically signed by: Rylan Carranza M.D. 02/08/2021 11:27 AM Hospital Course (1) Cellulitis of chest wall: Receiving chemo for metastatic pancreatic ca. Received chemo approx 10 days prior to admission and presented with extravasation/cellulitis of chest wall CT Chest with pronounced left breast skin thickening and extensive edema throughout the left breast and adjacent soft tissues. Although nonspecific, the findings are likely related to chemotherapy extravasation. No soft tissue gas. No loculated fluid collection. Also noted interval development of progressive metastatic disease of lungs, liver, and paraesophageal lymphadenopathy General surgery consulted -- no evidence for necrosis or indication for surgery Completed course of Vancomycin (also rocephin but was stopped due to elevated LFTs) with improvement of cellulitis. BCx NGTD final Unfortunately given progressive metastatic disease and pain control, palliative consultation was undertaken and pain medications adjusted as below and set up for Dilaudid EVENT SALES REPRESENTATIVE at discharge for continued control. (2) Extravasation injury of IV catheter site with other complication: see #1 above gen surg consulted --> expected erythema/induration from chemical inflammation - no necrosis continued improvement with above (3) Abnormal LFTs: ACUTE - CT - worsening pancreatic head mass - possible compression of pancreatitic duct? biliary ductal dilatation, carcinomatosis, and worsening liver mets - Have not repeated labs since determination for hospice - concern for CBD obstruction which places at risk for cholangitis -- Suspect the bili is liking still rising Given the progression of her disease, pain, and prognosis ERCP risks likely to outweigh benefits and this was not persued Palliative consulted as above -- hospice at d/c (4) Cancer associated pain: Wax and Wanes - states she does forget to click for bolus at times and appears anxiety playing large component (laughing in room and pressing button at same time but when asked if in pain said she was very anxious) Was on chronic, complex regimen including Fentanyl patch, Methadone, Dilaudid Dilaudid EVENT SALES REPRESENTATIVE with planned SQ line placement to continue at home Basal 1.25 with bolus Q15m. Methadone 2.5mg HS previously 10mg Continuing Decadron at same 4mg dose at discharge per discussion with Dr. Humphrey from palliative [facility] for bowel regimen, can convert to prn for frequent BMs (5) Anxiety: NEELA ativan 1mg QAM, 1mg q afternoon, 2mg HS (6) Pancreatic cancer: - Stage 4; Follows with [facility] - Dr. Lara and Guera Goncalves [facility] - Modified FOLFOX regimen recently - Despite chemo her disease has progressed significantly - worsening lung mets, liver mets, peritoneal implants/carcinomatosis, increased size of pancreatic mass - Planning on palliative/hospice services - Hospice arranged at discharge, Dilaudid EVENT SALES REPRESENTATIVE (7) Superior mesenteric vein thrombosis: - lovenox 1.5mg/kg daily while inpatient - anti-factor Xa level just shy of therapeutic - no changes - especially since discharging on hospice to prevent bleeding (8) Leukopenia: - 2nd to recent chemo (9) Multiple pulmonary nodules: - noted on CT chest -- 2nd to metastatic pancreatic ca (10) Elevated INR: - likely 2nd to poor liver synthetic function due to infiltration of liver by metastatic disease (11) Severe protein-calorie malnutrition: - 14Kg weight loss since 08/2020 due to stage 4 ca (12) DVT prophylaxis: lovenox while inpatient Total Time Total Time Spent Total Time Spent (In Minutes): 65 Discharge Plan Discharge Items Patient Disposition: Hospice - Home Reason For Visit: EXTRAVASATION OF CHEMO AGENT/CELLULITIS Discharge Diagnosis: Extravasation of Chemo Agent/Cellulitis; Uncontrolled Cancer Pain Goals: You have been hospitalized for an acute medical problem. During your stay at [facility], we have made an effort to correct the problem that brought you to the hospital while keeping you as comfortable as possible. Medications were used to bring your condition under control and your discharge instructions will include directions for any medications you should take after leaving the hospital. Please make sure you see your Primary Care Provider as part of your follow up plan. Activity: Resume your previous activity Non-emergency contact: Pain Management Call non-emergency contact if: you have any medication questions and your symptoms worsen Follow-up/Referrals: Brent Dye III, CRNP [Primary Care Provider] - 03/06/21 12:20 pm Angelina Humphrey MD [Physician] - Diet: Regular Addtl Attending Provider Instructions: You have been hospitalized for infection vs extravasation from chemo and your port. Given progressive nature of disease and metastasis, arrangements have been made for hospice at discharge. You have been set with a Dilaudid EVENT SALES REPRESENTATIVE pump to use for pain and have been set up with lorazepam (Ativan) to use for anxiety symptoms. You have been continued on Decadron (steroids) by mouth to help with appetite as well as cancer related pain. Please follow up with hospice care at discharge as well as your primary care provider. It has been decided to stop all extra medications to limit Please return to the emergency department for any symptoms that are concerning for you. It has been a pleasure taking part in the care of you while you have been in the hospital. Take care! Pending Studies at Discharge: No Stand-Alone Forms: [facility] Medications and DC Order Prescriptions: New hydromorphone (PF)-0.9 % NaCl 30 mg/30 mL (1 mg/mL) Pt Controlled Analgesia Syring 30 mg IV PRN PRN (Reason: pain) Qty: 150 RF: 0 polyethylene glycol 3350 [Miralax] 17 gram Powder In Packet 17 g PO DAILY PRN (Reason: constipation) Qty: 14 RF: 0 sennosides-docusate sodium [Senokot-S] 8.6-50 mg Tablet 1 tab PO QAM Qty: 14 RF: 0 dexamethasone [Decadron] 4 mg tablet 4 mg PO DAILY Qty: 30 RF: 0 methadone 5 mg Tablet 2.5 mg PO HS 14 Days Qty: 7 RF: 0 Continued multivitamin [Daily Multi-Vitamin] tablet 1 tab PO QAM RF: 0 ondansetron HCl 8 mg tablet 8 mg PO TID RF: 0 prochlorperazine maleate [Compazine] 10 mg tablet 10 mg PO TID RF: 0 lidocaine-prilocaine 2.5-2.5 % cream 1 applic topical ONCE Qty: 30 RF: 0 Narcan 4 mg/actuation spray,non-aerosol 4 mg intranasal Q2M PRN (Reason: opioid overdose) Qty: 2 RF: 0 bupropion HCl 100 mg tablet 100 mg PO QAM RF: 0 buspirone 30 mg tablet 30 mg PO HS RF: 0 ergocalciferol (vitamin D2) [Vitamin D2] 1,250 mcg (50,000 unit) Capsule 1,250 mcg PO WK RF: 0 buspirone 10 mg tablet 10 mg PO QAM RF: 0 gabapentin [Neurontin] 800 mg tablet 800 mg PO TID RF: 0 pantoprazole [Protonix] 40 mg tablet,delayed release (DR/EC) 40 mg PO QAM RF: 0 Discontinued enoxaparin 150 mg/mL syringe See Rx Instructions subcut DAILY Qty: 10 RF: 1 fentanyl 50 mcg/hr patch 72 hour 50 mcg transdermal Q72H Qty: 10 RF: 0 lorazepam 1 mg tablet 1 mg PO .COMPLEX PRN (Reason: anxiety) Qty: 90 RF: 0 cephalexin 500 mg capsule 500 mg PO TID 10 Days Qty: 30 RF: 0 atorvastatin [Lipitor] 40 mg tablet 40 mg PO QAM RF: 0 hydromorphone [Dilaudid] 4 mg tablet 6 mg PO Q4H RF: 0 methadone 5 mg tablet 10 mg PO BID RF: 0 No Action lorazepam 1 mg tablet 1 mg PO QID PRN (Reason: anxiety) 14 Days Qty: 112 RF: 0 lorazepam 1 mg tablet 2 mg PO HS PRN (Reason: anxiety) 10 Days Qty: 20 RF: 0 Discharge Orders: Discharge Order (Routine); Ordered 02/17/21 Ordered By: Maribel Steinberg Admission Data Admit Date/Time: 02/06/21 14:23 Attending Provider: Chastity Powell Admit Provider: Abdi Montanez Primary Care Provider: Brent Dye III Other Providers: Abdi Montanez ; Messi Lam ; Angelina Humphrey ; [facility] Other Interventions: Discharge Summary Assessment (RN) Last Done: 02/17/21 15:45 Supervising Physician Co-Signing Physician Notes PA Supervision Note: I personally saw and examined the patient. I verified all olivarez points and agree with TICO Steinberg with the following exceptions and/or additions: Patient with pain controlled, ready for discharge to home with hospice Questions answered O- Vitals reviewed Gen: Frail-appearing, alopecia, NAD HEENT: Anicteric sclerae, EOMI CV: RRR no mgr nl S1S2 Pulm: CTAB no wcr A/P-this patient is a 61-year-old female with history of metastatic pancreatic cancer, now ready for discharge to home with hospice. Plan outlined as above Coding Level of Care Code D/C DAY MANAGEMENT >30 MINS Diagnoses Cellulitis of chest wall L03.313 Extravasation injury of IV catheter site with other complication T82.898A Abnormal LFTs R94.5 Cancer associated pain G89.3 Anxiety F41.9 Pancreatic cancer C25.9 Superior mesenteric vein thrombosis K55.069 Leukopenia D72.819 Leukopenia type: unspecified Multiple pulmonary nodules R91.8 Elevated INR R79.1 Severe protein-calorie malnutrition E43 DVT prophylaxis Z29.9
--- NOTE | 2021-02-17 10:54 | Palliative Care Progress Note ---
Date of Service February 17, 2021 Assessment & Plan (1) Abdominal pain: Plan: Continue hydromorphone infusion and low dose methadone at night. Jen will be here later today to set her up with SC line and pump for home. (2) Anxiety: Plan: Continue buspirone, bupropion and lorazepam. Discussed importance of not using DATA WAREHOUSE ARCHITECT to treat anxiety. (3) Palliative care encounter: Plan: Plan for discharge home on hospice today. Reviewed with Miracle what to expect. (4) Pancreatic cancer: Admission and Anticipated Discharge Date Admission Date: February 06, 2021 Subjective Sleeping, easily arousable. Delayed response to questions. Confused at times. Basal rate increased to 1.25mg/hr over the weekend. She continues to frequently push button. She is tearful and anxious. She does admit that sometimes she pushes the button out of anxiety. Review of Systems Review of Systems: [place] Symptom Assessment Score Pain 2/3 Dyspnea 0/3 Anxiety 2/3 Fatigue 2/3 Nausea 0/3 Drowsiness 1/3 Palliative Performance Score 50% Physical Exam Constitutional: + thin and + frail appearing Respiratory: normal respiratory effort; no labored breathing Cardiovascular: Extremities: no edema Musculoskeletal: Extremities: + muscle atrophy Skin: warm and dry Neurologic: + confused; no focal motor deficits Psychiatric: Affect: + labile affect Results & Data ([facility]) Vital Signs (Past 12 Hours) Vital Signs Temp Pulse Resp BP Pulse Ox 02/17/21 07:35 98.8 F 72 17 100/65 96 PG Care Time/CCT Total # of Minutes Spent Total Time Spent with Patient: Total time spent is greater than 50% in coordination of care (as documented) at patient's floor/unit and/or counseling patient: Coding Level of Care Code 65382 Subseq Hosp Care Lvl 2 Diagnoses Abdominal pain R10.9 Anxiety F41.9 Palliative care encounter Z51.5 Pancreatic cancer C25.9
[2021-02-17] MEDS ORDERED: LORazepam 1 MG/2 ML VIAL IV ONE (15:44)
[2021-02-17] MEDS: SODIUM CHLORIDE 0.9% 1000ML 1,000 ML IV SCH (16:26)
== END 2021-02-17 17:30 | disposition hospice, home (50) | DRG 314 ==
LOC: ED 09:37 → 3E 14:23 → SUATTDRO 14:23 → 3E 18:26